=== PATIENT | female | born 1950 | race Caucasian/White ===

== ENCOUNTER 2018-11-18 00:27 | Outpatient (CLI) | payer MEDICARE, MEDICAID, SELFPAY ==
--- NOTE | 2018-11-18 11:58 | DI.MAMMO_ITS ---
SYMPTOMS/DIAGNOSIS: SCREENING, Z12.39 MAMMOGRAM: Mammograms were interpreted according to the usual protocol including computer analysis with CAD system, tomosynthesis and C view imaging. The breasts are of moderate density with fairly symmetrical distribution of fibroglandular tissue. No dominant mass or clumped microcalcification is identified in either breast. Current examination is compared with previous examinations including April 2017 and there has been no gross interval change in appearance in comparison with the previous studies. CONCLUSION: No specific evidence of malignancy at this time. Routine screening examinations are suggested at yearly intervals in this age group according to the ACS/ACR guidelines. Category 1, breast density category B. MQSA ASSESSMENT OF FINDINGS: Negative. Category 1. Patient will receive a letter notifying them of these results. BI-RADS category B. There are scattered areas of fibroglandular density.
== END 2018-11-18 00:47 ==
PROVIDERS: PCP Family Medicine; Visit Provider Family Medicine
DX: Z12.31 Encounter for screening mammogram for malignant neoplasm of breast (principal)
CPT/HCPCS: 77063; 77067

== ENCOUNTER 2019-03-09 13:27 | Outpatient (REF) | payer MEDICARE, SELFPAY ==
[2019-03-09 14:12] LABS: HCT 42.8 % (36.0-46.0); HGB 14.2 g/dL (12.0-15.5); Iron 96 ug/dL (50-175); Mean Corp. HGB Concentration 33.2 g/dL (32.0-36.0); Mean Corpuscular Hemoglobin 29.8 pg (27.0-33.0); Mean Corpuscular Volume 89.7 fL (80-95); Mean Platelet Volume 10.1 fL (8.0-11.0); Platelet Count 236 x1000/uL (130-400); RBC 4.77 m/cumm (4.00-5.20); RBC Distribution Width 14.4 % (11.7-14.6); Total Iron Binding Capacity 348 ug/dL (250-450); Transferrin Sat 28 % (15-50); White Blood Cell Count 4.34 k/cumm (4.4-10.8)
[2019-03-09 14:24] LABS: INR 1.1 (0.9-1.1)
[2019-03-09 14:43] LABS: ALT 34 U/L (12-78); AST 41 U/L (15-37); Albumin 3.2 g/dL (3.4-5.0); Alkaline Phosphatase 82 U/L (46-116); Anion Gap 9.2 mmol/L (3-11); BUN 9 mg/dL (7-18); Bilirubin, Total 0.9 mg/dL (0.2-1.0); CO2 25.8 mmol/L (21.0-32.0); CREATININE 0.75 mg/dL (0.55-1.02); Calcium 8.5 mg/dL (8.5-10.1); Chloride 109 mmol/L (98-107); Glucose 89 mg/dL (70-100); Potassium 4.3 mmol/L (3.5-5.1); Sodium 144 mmol/L (136-145); Total Protein 6.6 g/dL (6.4-8.2); Vitamin B12 526 pg/mL (193-986)
== END 2019-03-09 13:47 ==
LOC: NCHCN 13:27
PROVIDERS: PCP Family Medicine; Visit Provider Family Medicine
DX: K74.60 Unspecified cirrhosis of liver (principal); D50.9 Iron deficiency anemia, unspecified
CPT/HCPCS: 80053; 85027; 82607; 83540; 83550; 85610

== ENCOUNTER 2020-12-09 16:11 | Outpatient (REF) | payer OTHER, SELFPAY ==
[2020-12-09 15:05] LABS: Anion Gap 4.3 mmol/L (3-11); BUN 12 mg/dL (7-18); CO2 30.7 mmol/L (21.0-32.0); Calcium 9.1 mg/dL (8.5-10.1); Chloride 106 mmol/L (98-107); Estimated GFR 54.97 (mL/min/1.73m2); Glucose 101 mg/dL (74-106); Potassium 4.1 mmol/L (3.5-5.1); Sodium 141 mmol/L (136-145)
== END 2020-12-09 16:12 | disposition home or self-care (01) ==
LOC: NCHCN 16:11
PROVIDERS: PCP Family Medicine; Visit Provider Family Medicine
DX: I10 Essential (primary) hypertension (principal)
CPT/HCPCS: 80048

== ENCOUNTER 2021-03-21 14:04 | Outpatient (REF) | payer OTHER, SELFPAY ==
--- NOTE | 2021-03-21 12:30 | PAPFT_PTH ---
PATIENT: Telma Richter LOC: [facility] U#:[id number] AGE/SX: 70/F ROOM: RE03/21/[address]: Justino Lucia : 1950 BED: DIS: 03/21/2021 SPEC #: [id number] RECD: 03/22/21 13:09 STATUS: MARV REQ #: [id number] MALIKA: 03/21/21 12:[address]: Justino Lucia DEPT: [facility] Cytology RECD BY: Carolyn Akers Tissues: 1 - CX/ENDOCX FOR PAP SMEARS Procedures: PAP THIN PREP/UVM Screening HPV DNA PROBE Comments: [id number] ([facility] - FAXED 04/03/21)
== END 2021-03-21 14:05 | disposition home or self-care (01) ==
LOC: LBN 14:04
PROVIDERS: PCP Family Medicine; Visit Provider Family Medicine
DX: Z12.4 Encounter for screening for malignant neoplasm of cervix (principal); Z11.51 Encounter for screening for human papillomavirus (HPV)
CPT/HCPCS: 88142; 87624

== ENCOUNTER 2021-04-06 01:33 | Outpatient (CLI) | payer OTHER, SELFPAY ==
--- NOTE | 2021-04-06 | DI.US_ITS ---
Exam(s) US PELVIS TRANSVAGINAL EXAM: US PELVIS TRANSVAGINAL CLINICAL HISTORY: ABNL UTERINE BLEEDING,N93.9 TECHNIQUE: Ultrasound of the pelvis was performed both transabdominal and transvaginal. COMPARISON: None FINDINGS: UTERUS: Anteverted Measures 8.3 cm length x 3.6 cm AP x 4.6 cm wide. There are no uterine fibroids. Endometrial thickness measures 12.6 mm. This is thick for this age group There is no fluid in the endometrial canal. CERVIX: There are no obvious nabothian cysts. RIGHT OVARY: Measures 1.4 x 1.5 x 1.3 cm No significant cysts nor masses evident in the right ovary. LEFT OVARY: Measures 2.3 x 1.7 x 1.6 cm No significant cysts nor masses evident in the left ovary. CUL-DE-SAC: No free fluid evident. Incidentally noted is a cyst in the right kidney lateral cortex measuring 4.1 x 3.9 x 3.3 cm no signi ficant focal findings in left kidney. No calculi nor hydronephrosis.. IMPRESSION: 1. There are no uterine fibroids but the endometrium is thickened for this age group, measuring 12-13 millimeters although this appears relatively homogeneous, close follow-up of this abnormally thicken ed endometrial lining is recommended. There is no fluid in the endometrial canal. 2. No abnormal ovarian findings. 3. Incidentally noted is a benign 4 cm cyst in the right kidney. DATA REPOSITORY:
== END 2021-04-06 01:53 ==
PROVIDERS: PCP Family Medicine; Visit Provider Family Medicine
DX: N93.9 Abnormal uterine and vaginal bleeding, unspecified (principal); N28.1 Cyst of kidney, acquired; R93.89 Abnormal findings on diagnostic imaging of other specified body structures
CPT/HCPCS: 76830; 76856

== ENCOUNTER 2021-04-10 17:54 | Outpatient (REF) | payer OTHER, SELFPAY ==
[2021-04-12 14:27] LABS: COVID-19 RT-PCR UVMMC Result Negative (Negative)
== END 2021-04-10 17:55 | disposition home or self-care (01) ==
LOC: LBN 17:54
PROVIDERS: PCP Family Medicine; Visit Provider Nurse Practitioner Family
DX: Z20.822 Contact with and (suspected) exposure to COVID-19 (principal); J06.9 Acute upper respiratory infection, unspecified
CPT/HCPCS: U0003

== ENCOUNTER 2021-10-02 19:47 | Outpatient (REF) | payer OTHER, SELFPAY ==
[2021-10-02 20:24] LABS: HCT 39.8 % (36.0-46.0); MCH 26.7 pg (27.0-33.0); MCHC 30.2 % (32.0-36.0); MCV 88.6 fL (80-95); MPV 10.3 fL (8.0-11.0); Platelet Count 254 10^3/uL (130-400); RBC 4.49 10^6/uL (3.93-5.22); RDW 15.9 % (11.7-14.6); WBC 5.18 10^3/uL (4.4-10.8)
[2021-10-02 20:33] LABS: ALT 26 U/L (14-59); AST 24 U/L (15-37); Albumin 3.4 g/dL (3.4-5.0); Alkaline Phosphatase 74 U/L (46-116); Anion Gap 9.2 mmol/L (3-11); BUN 12 mg/dL (7-18); Bilirubin, Total 0.8 mg/dL (0.2-1.0); CO2 28.8 mmol/L (21.0-32.0); CREATININE 0.8 mg/dL (0.55-1.02); Calcium 8.8 mg/dL (8.5-10.1); Chloride 106 mmol/L (98-107); Glucose 92 mg/dL (74-106); Potassium 3.9 mmol/L (3.5-5.1); Sodium 144 mmol/L (136-145); Total Protein 6.8 g/dL (6.4-8.2)
== END 2021-10-02 19:48 | disposition home or self-care (01) ==
LOC: NCHCN 19:47
PROVIDERS: PCP Family Medicine; Visit Provider Family Medicine
DX: R73.01 Impaired fasting glucose (principal); K74.60 Unspecified cirrhosis of liver
CPT/HCPCS: 80053; 85027; 83036

== ENCOUNTER 2021-10-26 00:44 | Outpatient (CLI) | payer OTHER, SELFPAY ==
--- NOTE | 2021-10-26 10:45 | DI.CTLCSR_ITS ---
Exam(s) CT CHEST LUNG CANCER SCREEN EXAM: CT CHEST LUNG CANCER SCREEN CLINICAL HISTORY: H/O CIGARETTE SMOKER, Z87.891,SCREENING FOR LUNG CA. TECHNIQUE: Imaging Protocol: Low Dose Technique CONTRAST MATERIAL: None COMPARISON: No exams were available for comparison FINDINGS: CHEST: LUNGS: There are no ominous pulmonary nodules. There are no confluent infiltrates. Mild subpleural i ncreased markings are noted in the lateral basal segment of the right lower lobe. There are no pleur al effusions MEDIASTINUM: There is no obvious hilar nor mediastinal adenopathy. CARDIAC: Heart size is normal. There is no pericardial effusion.Caliber of the thoracic aorta is wit hin normal limits. OTHER: OSSEOUS: No significant osseous lesions.. IMPRESSION: 1. No concerning pulmonary nodules. 2. No pleural effusions nor obvious intrathoracic adenopathy. 3. Lung RADS Cat 1 - Negative: No nodules and definitely benign nodules Lung-RADS 1.0 CATEGORIES: Category 0 - Prior chest CT exam(s) being located for comparison. Category 1 - Annual screening in 12 months. No nodules or definitely benign nodules. Category 2 - Annual screening in 12 months. Benign appearance. Nodules with low likelihood of becomin g active cancer. Category 3 - 6-month follow-up. Probably benign. Short-term follow-up suggested. Nodules with low lik elihood of becoming active cancer. Category 4A - 3-month follow-up and CT/PET if >8 mm in size. Suspicious finding. Findings which requi re additional testing. Category 4B - Findings which require additional testing and tissue sampling. Category 4X - Category 3 or 4 nodules with additional features or imaging findings that increases the suspicion of malignancy. Modifier S- Potentially clinically significant findings (non lung cancer) RADIATION DOSE DELIVERED: 85.79mGy.cm Total DLP 2.21mGy CTDIvol DATA REPOSITORY: All CT scans at this facility are submitted to the National Radiology Data Registry (NRDR) Dose Index Registry (DIR) with the [employer] (ACR). RADIATION OPTIMIZATION: All CT scans at this facility use at least one of these dose optimization te chniques: automated exposure control; mA and/or kV adjustment per patient size (includes targeted exa ms where dose is matched to clinical indication); or iterative reconstruction.
== END 2021-10-26 01:04 ==
PROVIDERS: PCP Family Medicine; Visit Provider Family Medicine
DX: Z87.891 Personal history of nicotine dependence (principal); Z12.2 Encounter for screening for malignant neoplasm of respiratory organs
CPT/HCPCS: 71271

== ENCOUNTER 2021-10-31 21:12 | Outpatient (CLI) | payer OTHER, SELFPAY ==
--- NOTE | 2021-10-31 | DI.RAD_ITS ---
Exam(s) XR HIP LT COMPLETE AP PELVIS EXAM: XR HIP LT COMPLETE AP PELVIS CLINICAL HISTORY: LT HIP PAIN, SEVERE, NO TRAUMA, M25.552. TECHNIQUE: 2D digital imaging was performed of the left hip. Four views were obtained. AP pelvis a nd lateral left hip views were obtained. COMPARISON: No exams were available for comparison FINDINGS: BONES: No acute fracture is present. No bony destructive lesion is seen. JOINTS: No dislocation present. Degenerative changes of the hips are seen bilaterally, left greater t campbell right. There is joint space narrowing and acetabular spurring. Degenerative changes are also se en in the lower lumbar spine. SOFT TISSUE: Normal. IMPRESSION: Osteoarthritis of the left hip. Delete DATA REPOSITORY: RADIATION DOSE DELIVERED:
== END 2021-10-31 21:32 ==
PROVIDERS: PCP Family Medicine; Visit Provider Family Medicine
DX: M25.552 Pain in left hip (principal); M16.12 Unilateral primary osteoarthritis, left hip
CPT/HCPCS: 73502

== ENCOUNTER → 2021-11-13 12:53 | Outpatient (BNVA) | payer OTHER, SELFPAY | PROVIDERS: PCP Family Medicine; Referring Provider Family Medicine; Visit Provider Student in an Organized Health Care Education/Training Program | DX: M16.12 Unilateral primary osteoarthritis, left hip (principal) | CPT/HCPCS: 99203 ==

== ENCOUNTER 2022-11-15 00:53 | Outpatient (CLI) | payer OTHER, SELFPAY ==
--- NOTE | 2022-11-15 09:00 | ETT_ITS ---
APPROVED REPORT Exam: Exercise Treadmill Patient Location: Out-Patient Room/Bed: Stress Nurse: Jacey Dickerson RN Ordering Provider:MYKE GORDILLO, Contact Number: [phone] BMI: 56.69 Baseline Rhythm: Sinus Rhythm Indications: Dyspnea on exertion, palpitaions Medical History Medical History: DJD L hip, HTN, liver cirrhosis, BMI > 31, heart murmur Cardiac Medications: lisinopril, gabapentin, furosemide, atorvastatin, albuterol, metoprolol succinat e, ozempic, Allergies: NKDA Cardiac Risk Factors: HTN, HLD, obesity, diabetes, former smorker, asthma, Previous Cardiac Procedures: Cardiac cath 2015 w/ no stents Pretest Chest Pain Characteristics: None Exercise History: Sedentary Physical Disabilities: L hip DJD Lung Sounds: Clear to auscultation Heart Sounds: Regular, murmur Stress Test Details Test: Exercise stress testing was performed using a Flavio protocol. Rest Stress HR Resting HR Supine: 84 bpm Max Heart Rate (APMHR): 149 bpm Resting HR Standin bpm Target HR (85% APMHR): 127 bpm Max HR Achieved: 152 bpm % of APMHR: 102 Recovery HR: 100 bpm HR response to stress: Accelerated HR response to stress Comment: Metoprolol succinate was held x 48 hours BP Resting BP Supine: 158/72 mmHg Resting BP Standin/78 mmHg Max BP: 180/80 mmHg Recovery BP: 150/82 mmHg BP response to stress: Normal blood pressure response to stress. ECG Resting ECG: Sinus Rhythm Ectopy: None Stress ECG: Sinus Tachycardia ST Change: No significant ST segment changes noted Arrhythmia: None Recovery ECG: Sinus Tachycardia Recovery ST Change: No significant ST segment changes noted Recovery Arrhythmia: Rare PAC Clinical Reason for Termination: Fatigue, Dyspnea Stress Symptoms: General Fatigue, Dyspnea Exercise duration: 1 min40 sec Highest Stage Reached: Stage 1: 1.7 mph at 10% grade. Exercise capacity: 3.86 METs Angina Score: None Arriaga Treadmill Score: 1.7 Rate Pressure Product: 09731 Stress ECG Conclusion 1. Resting electrocardiogram showed poor R wave progression 2. Patient exercised on the Flavio protocol and completed a workload of 3.86 METS, walking for 1 minut e and 40 seconds. 3. Accelerated heart rate response to exercise. The patient achieved greater than 100% of predicted heart rate for age. Normal blood pressure response to exercise 4. No electrocardiographic evidence of myocardial ischemia 5. There were no significant dysrhythmias Arriaga Treadmill Score is 1.7 which is Moderate risk. Stress Test Summary STAGE Time (mins) Speed (mph) Grade (%) HR BP SpO2 SYMPTOMS METS Supine 84 158/72 96 Standing 95 144/78 96 1 3 1.7 10 150 96 mod-severe SOB 4.5 1 min recovery 130 178/84 96 mod-severe SOB 3 min recovery 100 180/80 97 mild-moderate SOB 6 min recovery 100 150/82 96 SOB resolved
== END 2022-11-15 01:13 ==
PROVIDERS: PCP Family Medicine; Visit Provider Family Medicine
DX: R06.09 Other forms of dyspnea (principal); R00.2 Palpitations
CPT/HCPCS: 93016; 93018; 93017

== ENCOUNTER → 2023-10-01 00:38 | Outpatient (CLI) | payer OTHER, SELFPAY ==
--- OUTSIDE RECORDS SUMMARY | 2023-09-20 13:37 | XMS_ITS | Continuity of Care Document ---
Author Name Unknown Organization [facility] Address [address] [place] [id number] Care Team Providers Care Assisted Living Home Director Name Role Phone MYKE GORDILLO Primary Care Physician Encounter [facility] FIN NBR [id number] Date(s): 06/08/22 - 06/08/[address] [address]- [place] Discharge Disposition: Home or Self Care Attending Physician: MYKE GORDILLO Admitting Physician: MYKE GORDILLO Results Radiology Reports * Exam Date Time Procedure Performing Provider Status 06/08/22 11:41 AM MG Mammo Screening Bilateral Shante Jean; Kirsten (Verified) Notes: (MG Mammo Screening Bilateral) Reason For Exam: screening MG Mammo Screening Bilateral EXAM DESCRIPTION: MG Mammo Screening Bilateral 06/08/2022 INDICATION: SCREENING COMPARISON: 05/01/2017 and 04/06/2016 BREAST DENSITY: The breasts are almost entirely fatty. FINDINGS: MLO and CC views were performed with digital breast tomosynthesis. Images were reviewed using computer aided detection. No asymmetry, architectural distortion or suspicious grouping of calcifications to suggest malignancy in either breast. ASSESSMENT: No mammographic evidence of malignancy. Negative. BI-RADS category 1. RECOMMENDATION: Screening mammography in 1 year JOB #: [id number] Final Signed by: Leo Galan MD Signed (Electronic Signature): 06/08/2022 11:54 am MG Breast - bilateral Screening * Leo Galan MD: VERIFY, VERIFY Event Display: Report EXAM DESCRIPTION: MG Mammo Screening Bilateral 06/08/2022 INDICATION: SCREENING COMPARISON: 05/01/2017 and 04/06/2016 BREAST DENSITY: The breasts are almost entirely fatty. FINDINGS: MLO and CC views were performed with digital breast tomosynthesis. Images were reviewed using computer aided detection. No asymmetry, architectural distortion or suspicious grouping of calcifications to suggest malignancy in either breast. ASSESSMENT: No mammographic evidence of malignancy. Negative. BI-RADS category 1. RECOMMENDATION: Screening mammography in 1 year JOB #: [id number] Final Signed by: Leo Galan MD Signed (Electronic Signature): 06/08/2022 11:54 am Patient Care team information Personnel Name: MYKE GORDILLO M Address: Address: [address] [place] [id number] [place] [address]
--- OUTSIDE RECORDS SUMMARY | 2023-09-20 13:37 | XMS_ITS | Continuity of Care Document ---
Author Name Unknown Organization [facility] Address [address] [place] [id number] Care Team Providers Care Forestry Support Specialist Name Role Phone MYKE GORDILLO MD Primary Care Physician Encounter [facility] NBR [id number] Date(s): 06/06/22 - 12/12/[address] [address]- Encounter Diagnosis Unilateral primary osteoarthritis, left hip(Final) - Discharge Disposition: Home-No Follow Up Attending Physician: Marifer Carey Referring Physician: MYKE GORDILLO Allergies, Adverse Reactions, Alerts No Known Allergies Assessment and Plan Future Appointments Appointment Date:01/15/2023 09:15:00 AM Scheduled Provider:Marifer Carey PT Location:[facility]-Rehab Appointment Type:Progress Note (LTTL) Medications atorvastatin 0 Refill(s) Start Date: 09/18/22 Status: Ordered gabapentin 0 Refill(s) Start Date: 09/18/22 Status: Ordered Lasix 0 Refill(s) Start Date: 09/18/22 Status: Ordered lisinopril 5 mg oral tablet fu, 0 Refill(s) Start Date: 09/18/22 Status: Ordered magnesium oxide 500 mg oral capsule 500 mg = 1 cap, Oral, Daily, # 5 cap, 0 Refill(s) Start Date: 09/18/22 Stop Date: 09/23/22 Status: Ordered metoprolol succinate 25 mg oral capsule, extended release 0 Refill(s) Start Date: 09/18/22 Status: Ordered Metoprolol Tartrate 25 mg oral tablet 25 mg = 1 tab, Oral, BID, # 60 tab, 0 Refill(s) Start Date: 09/18/22 Status: Ordered potassium chloride 20 mEq oral tablet, extended release 20 mEq = 1 tab, Oral, Daily, # 5 EA, 0 Refill(s) Start Date: 09/18/22 Status: Ordered PriLOSEC 0 Refill(s) Start Date: 09/18/22 Status: Ordered spironolactone 0 Refill(s) Start Date: 09/18/22 Status: Ordered Problem List Condition Confirmation Course Effective Dates Status Health St atus Informant 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 Sex Patient Care team information Care Team Personnel Name: MYKE GORDILLO MD Position: No Access Member Role: Primary Care Physician Address: Address: [address] [place] [address] Care Team Related Persons Name: JENNY DE LEON
--- OUTSIDE RECORDS SUMMARY | 2023-09-20 13:37 | XMS_ITS | Continuity of Care Document ---
Author Name Unknown Organization [facility] Address [address] [place] [id number] Care Team Providers Care Parimutuel Ticket Checker Name Role Phone MYKE GORDILLO MD Primary Care Physician Encounter LTTL_SD FIN NBR [id number] Date(s): 09/18/22 - 09/18/[address] [id number]- Encounter Diagnosis Palpitation(Discharge Diagnosis) - 09/18/22 Angina pectoris without myocardial infarction(Discharge Diagnosis) - 09/18/22 Discharge Disposition: Home or Self Care Attending Physician: Alexander Olivera MD Admitting Physician: Alexander Olivera MD Allergies, Adverse Reactions, Alerts No Known Allergies Functional Status 09/18/22 Other exposure to Infectious Disease Non e Medications atorvastatin 0 Refill(s) Start Date: 09/18/22 [...] 0 Refill(s) Start Date: 09/18/22 Status: Ordered Mental Status 09/18/22 Eye Opening Response Benson Spontaneous ly Best Verbal Response Benson Oriented Best Motor Response [place] Obeys comman ds [place] Coma Score 15 Problem List Condition Confirmation Course Effective Dates Status Health St atus Informant Angina pectoris without myocardial infarction Confirmed Active Palpitation Confirmed Active Results Laboratory List Name Date Troponin-I 09/18/22 SARS-CoV-2 (COVID-19)/Flu/RSV (GeneXpert ) 09/18/22 Automated Diff 09/18/22 BNP 09/18/22 CBC w/ Diff 09/18/22 Comprehensive Metabolic Panel (CMP) 09/18 Magnesium Level 09/18/22 PT/ INR 09/18/22 PTT 09/18/22 TSH w/ Rflx to Free T4 09/18/22 Troponin-I 09/18/22 Most recent to oldest [Reference Range]: 1 2 WBC [4.8-10.8 K/mcL] 4.6 K/mcL *LOW* (09/18/22 9:35 AM) RBC [4.20-6.10 Million/mcL] 4.65 Million /mcL (09/18/22 9:35 AM) Neutro Auto [42.2-75.2 %] 60.1 % (09/18/22 9:35 AM) Lymph Auto [20.5-51.1 %] 26.3 % (09/18/22 9:35 AM) Platte Auto [1.7-9.3 %] 10.1 % *HI* (09/18/22 9:35 AM) Basophil Auto [0.0-0.8 %] 0.7 % (09/18/22 9:35 AM) Prothrombin Time [9.1-10.6 seconds] 11.0 seconds *HI* (09/18/22 9:35 AM) INR [0.9-1.1] 1.1 (09/18/22 9:35 AM) BUN [8-26 mg/dL] 10 mg/dL (09/18/22 9:35 AM) Glucose Level [74-106 mg/dL] 106 mg/dL (09/18/22 9:35 AM) Potassium Level [3.5-5.1 mmol/L] 3.3 mmo l/L *LOW* (09/18/22 9:35 AM) Baso Absolute [0.0-0.2 K/mcL] 0.0 K/mcL (09/18/22 9:35 AM) MCV [80.0-99.0 fL] 91.0 fL (09/18/22 9:35 AM) AST [15-41 IntlUnit/L] 32 IntlUnit/L (09/18/22 9:35 AM) ALT [14-54 IntlUnit/L] 18 IntlUnit/L (09/18/22 9:35 AM) MCHC [32.0-36.0 g/dL] 33.8 g/dL (09/18/22 9:35 AM) Osmolality [275-295 mOsm/kg] 273 mOsm/kg *LOW* (09/18/22 9:35 AM) Troponin-I [<=0.05 ng/mL] 0.03 ng/mL (09/18/22 12:55 PM) 0.02 ng/mL (09/18/22 9:35 AM) Sodium Level [134-143 mmol/L] 137 mmol/L (09/18/22 9:35 AM) Lymph Absolute [1.2-3.4 K/mcL] 1.2 K/mcL (09/18/22 9:35 AM) Hct [37.0-52.0 %] 42.3 % (09/18/22 9:35 AM) Partial Thromboplastin Time [21.3-28.4 seconds] 25.8 seconds (09/18/22 9:35 AM) Calcium Level [8.9-10.3 mg/dL] 8.8 mg/dL *LOW* (09/18/22 9:35 AM) Platte Absolute [0.1-0.6 K/mcL] 0.5 K/mcL (09/18/22 9:35 AM) Albumin Level [3.5-5.0 g/dL] 3.5 g/dL (09/18/22 9:35 AM) Protein Total [6.5-8.1 g/dL] 6.8 g/dL (09/18/22 9:35 AM) MCH [27.0-31.0 pg] 30.8 pg (09/18/22 9:35 AM) Magnesium Level [1.8-2.5 mg/dL] 1.7 mg/d L *LOW* (09/18/22 9:35 AM) Neutro Absolute [1.4-6.5 K/mcL] 2.8 K/mc L (09/18/22 9:35 AM) Bilirubin Total [0.2-1.2 mg/dL] 1.1 mg/d L (09/18/22 9:35 AM) Hgb [12.0-18.0 g/dL] 14.3 g/dL (09/18/22 9:35 AM) Alk Phos [38-130 IntlUnit/L] 65 IntlUnit /L (09/18/22 9:35 AM) MPV [7.4-10.4 fL] 9.9 fL (09/18/22 9:35 AM) Platelets [130-400 K/mcL] 225 K/mcL (09/18/22 9:35 AM) CO2 [22-32 mmol/L] 25 mmol/L (09/18/22 9:35 AM) Eos Absolute [0.0-0.2 K/mcL] 0.1 K/mcL (09/18/22 9:35 AM) TSH [0.45-5.33 mIntlUnit/mL] 1.69 mIntlU nit/mL (09/18/22 9:35 AM) eGFR Non-AA 75 *NA* (09/18/22 9:35 AM) eGFR AA 75 *NA* (09/18/22 9:35 AM) BNP [<=100 pg/mL] 54 pg/mL (09/18/22 9:35 AM) Chloride Level [98-111 mmol/L] 102 mmol/ L (09/18/22 9:35 AM) RDW-CV [11.5-14.5 %] 13.8 % (09/18/22 9:35 AM) A/G Ratio 1.1 *NA* (09/18/22 9:35 AM) BUN/Creat Ratio [8.0-20.0] 12.0 (09/18/22 9:35 AM) Globulin 3.3 *NA* (09/18/22 9:35 AM) Imm Gran Absolute 0.01 *NA* (09/18/22 9:35 AM) Imm Gran Auto [0.0-0.5 %] 0.2 % (09/18/22 9:35 AM) Creatinine Level [0.44-1.00 mg/dL] 0.83 mg/dL (09/18/22 9:35 AM) Employed in healthcare? No *NA* (09/18/22 10:40 AM) Symptomatic as defined by CDC? Unknown *NA* (09/18/22 10:40 AM) Hospitalized due to COVID-19? No *NA* (09/18/22 10:40 AM) In ICU? No *NA* (09/18/22 10:40 AM) Group care resident? No *NA* (09/18/22 10:40 AM) status? Unknown *NA* (09/18/22 10:40 AM) SARS-CoV-2(Covid19)PCR(GXper t COVFLURSV) [Negative] Negative (09/18/22 10:40 AM) Flu A (GXpert COVFLURSV) [Negative] Nega tive (09/18/22 10:40 AM) RSV ([facility]Xpert COVFLURSV) [Negative] Negati ve (09/18/22 10:40 AM) Flu B (GXpert COVFLURSV) [Negative] Nega tive (09/18/22 10:40 AM) Anion Gap [3.0-12.0] 10.0 (09/18/22 9:35 AM) Eos, Auto [0.00-3.00 %] 2.60 % (09/18/22 9:35 AM) Radiology Reports * Exam Date Time Procedure Performing Provider Status 09/18/22 10:08 AM XR Chest 2 Views Chantal Busby; Auth (Verified) Notes: (XR Chest 2 Views) Reason For Exam: sob XR Chest 2 Views EXAM DESCRIPTION: XR Chest 2 Views 09/18/2022 INDICATION: SOB COMPARISON: 10/25/2017 IMPRESSION: No focal consolidation. Mild bilateral peripheral interstitial changes of uncertain chronicity which may reflect mild interstitial lung disease/fibrosis or possible mild interstitial pulmonary edema. Normal cardiomediastinal contour. Normal pleural margins with no pleural effusion or pneumothorax. Spondylotic changes of the dorsal spine. JOB #: [id number] Final Signed by: Leo Galan MD Signed (Electronic Signature): 09/18/2022 10:23 am Vital Signs Most recent to oldest [Reference Range]: 1 2 3 Temperature Temporal Artery [36-38 Deg C] 36.5 Deg C (09/18/22 9:00 AM) Peripheral Pulse Rate [60-100 bpm] 119 bpm *HI* (09/18/22 10:00 AM) 115 bpm *HI* (09/18/22 9:00 AM) Heart Rate Monitored [60-100 bpm] 80 bpm (09/18/22 2:15 PM) 81 bpm (09/18/22 12:15 PM) 81 bpm (09/18/22 11:30 AM) Respiratory Rate [12-24 br/min] 18 br/min (09/18/22 2:15 PM) 16 br/min (09/18/22 11:30 AM) 24 br/min (09/18/22 11:00 AM) Blood Pressure [90-140/60-90 mmHg] 103/79mmHg (09/18/22 2:15 PM) 99/45mmHg (09/18/22 1:30 PM) 99/45mmHg (09/18/22 1:15 PM) Mean Arterial Pressure Cuff 88 mmHg (09/18/22 2:15 PM) 54 mmHg (09/18/22 1:30 PM) 54 mmHg (09/18/22 1:15 PM) Weight Dosing 141.00 kg (09/18/22 9:25 AM) Weight Estimated 141.00 kg (09/18/22 9:00 AM) Height/Length Dosing 157.000 cm (09/18/22 9:25 AM) Height/Length Estimated 157.000 cm (09/18/22 9:00 AM) Social History Social History Type Response Tobacco Never tobacco user T obacco Use:. Sex Hospital Discharge Instructions Patient Education 09/18/2022 12:56:38 Palpitations, Jeel-il-Ytmn Palpitations Palpitations are feelings that your heartbeat is not normal. Your heartbeat may feel like it is: ??? Uneven. ??? Faster than normal. ??? Fluttering. ??? Skipping a beat. This is usually not a serious problem. In some cases, you may need tests to rule out any serious problems. Follow these instructions at home: Pay attention to any changes in your condition. Take these actions to help manage your symptoms: Eating and drinking ??? Avoid: ??? Coffee, tea, soft drinks, and energy drinks. ??? Chocolate. ??? Alcohol. ??? Diet pills. Lifestyle ??? Try to lower your stress. These things can help you relax: ??? Yoga. ??? Deep breathing and meditation. ??? Exercise. ??? Using words and images to create positive thoughts (guided imagery). ??? Using your mind to control things in your body (biofeedback). ??? Do not use drugs. ??? Get plenty of rest and sleep. Keep a regular bed time. General instructions ??? Take bvko-dos-twwwsmh and prescription medicines only as told by your doctor. ??? Do not use any products that contain nicotine or tobacco, such as cigarettes and e-cigarettes. If you need help quitting, ask your doctor. ??? Keep all follow-up visits as told by your doctor. This is important. You may need more tests ifpalpitations do not go away or get worse. Contact a doctor if: ??? Your symptoms last more than 24 hours. ??? Your symptoms occur more often. Get help right away if you: ??? Have chest pain. ??? Feel short of breath. ??? Have a very bad headache. ??? Feel dizzy. ??? Pass out (faint). Summary ??? Palpitations are feelings that your heartbeat is uneven or faster than normal. It may feel likeyour heart is fluttering or skipping a beat. ??? Avoid food and drinks that may cause palpitations. These include caffeine, chocolate, and alcohol. ??? Try to lower your stress. Do not smoke or use drugs. ??? Get help right away if you faint or have chest pain, shortness of breath, a severe headache, ordizziness. This information is not intended to replace advice given to you by your health care provider. Make sure you discuss any questions you have with your health care provider. Document Revised: 12/15/2021 Document Reviewed: 10/01/2018 [facility] Patient Education ?? 2021 [employer]. 09/18/2022 12:56:24 Angina, Oqur-hk-Atfc Angina Angina is discomfort or pain in the chest, neck, arm, jaw, or back. The discomfort is caused by a lack of blood in the middle layer of the heart wall. The middle layer of the heart wall is called themyocardium. What are the causes? This condition is caused by a buildup of fat and cholesterol, or plaque, in your arteries. This buildup narrows the arteries and makes it hard for blood to flow. What increases the risk? Main risks ??? High levels of cholesterol in your blood. ??? High blood pressure. ??? Diabetes. ??? Family history of heart disease. ??? Not exercising or moving enough. ??? Depression. ??? Having had radiation treatment on the left side of your chest. Other risks ??? Tobacco use. ??? Too much body weight (obesity). ??? A diet that is high in unhealthy fats (saturated fats). ??? Stress. ??? Using drugs, such as cocaine. Risks for women ??? Being older than 55 years. ??? Being in menopause. This is the time when a woman no longer has a menstrual period. What are the signs or symptoms? Symptoms in all people ??? Chest pain, which may: ??? Feel like a crushing or squeezing in the chest. ??? Feel like a tightness, pressure, fullness, or heaviness in the chest. ??? Last for more than a few minutes at a time. ??? Stop and come back (recur) after a few minutes. ??? Pain in the neck, arm, jaw, or back. ??? Heartburn or upset stomach (indigestion) for no reason. ??? Being short of breath. ??? Feeling like you may vomit (nauseous). ??? Sudden cold sweats. Symptoms in women and people with diabetes ??? Tiredness. ??? Worry and anxiety. ??? Weakness. ??? Dizziness or fainting. How is this treated? This condition may be treated with: ??? Medicines. These can be given to prevent blood clots, stop a heart attack, lower blood pressure, or treat other risk factors. ??? A procedure to widen a narrowed or blocked artery in the heart. ??? Surgery to allow blood to go around a blocked artery. Follow these instructions at home: Medicines ??? Take xlwr-ajj-cyoaslz and prescription medicines only as told by your doctor. ??? Do not take these medicines unless your doctor says that you can: ??? NSAIDs. These include: ??? Ibuprofen. ??? Naproxen. ??? Vitamin supplements that have vitamin A, vitamin E, or both. ??? Hormone therapy that contains estrogen with or without progestin. Eating and drinking ??? Eat a heart-healthy diet that includes: ??? Lots of fresh fruits and vegetables. ??? Whole grains. ??? Low-fat (lean) protein. ??? Low-fat dairy products. ??? Follow instructions from your doctor about what you cannot eat or drink. Activity ??? Follow an exercise program that your doctor tells you. ??? Talk with your doctor about joining a program to make your heart strong again (cardiac rehab). ??? When you feel tired, take a break. Plan breaks if you know you are going to feel tired. Lifestyle ??? Do not smoke or use any products that contain nicotine or tobacco. If you need help quitting, ask your doctor. ??? If your doctor says you can drink alcohol: ??? Limit how much you have to: ??? 0???1 drink a day for women who are not . ??? 0???2 drinks a day for men. ??? Know how much alcohol is in your drink. In the [place] one drink equals one 12 oz bottle of beer (355 mL), one 5 oz glass of wine (148 mL), or one 1?? oz glass of hard liquor (44 mL). General instructions ??? Stay at a healthy weight. If told to lose weight, work with your doctor to do lose weight safely. ??? Learn to manage stress. If you need help, ask your doctor. ??? Keep your vaccines up to date. Get a flu shot every year. ??? Talk with your doctor if you feel sad. Take a screening test to see if you are at risk for depression. ??? Work with your doctor to manage any other health problems that you have. These may include diabetes or high blood pressure. ??? Keep all follow-up visits. Get help right away if: ??? You have pain in your chest, neck, arm, jaw, or back, and the pain: ??? Lasts more than a few minutes. ??? Comes back. ??? Does not get better after you take medicine under your tongue (sublingual nitroglycerin). ??? Keeps getting worse. ??? Comes more often. ??? You have any of these problems: ??? Sweating a lot. ??? Heartburn or upset stomach. ??? Shortness of breath. ??? Trouble breathing. ??? Feeling like you may vomit. ??? Vomiting. ??? Feeling more tired than normal. ??? Feeling nervous or worrying more than normal. ??? Weakness. ??? You are dizzy or light-headed all of a sudden. ??? You faint. These symptoms may be an emergency. Get help right away. Call your local emergency services (911 int [place] ??? Do not wait to see if the symptoms will go away. ??? Do not drive yourself to the hospital. Summary ??? Angina is discomfort or pain in the chest, neck, arm, neck, or back. ??? Symptoms include chest pain, heartburn or upset stomach, and shortness of breath. ??? Women or people with diabetes may have other symptoms, such as feeling nervous, being worried, or being weak or tired. ??? Take all medicines only as told by your doctor. ??? You should eat a heart-healthy diet and follow an exercise program. This information is not intended to replace advice given to you by your health care provider. Make sure you discuss any questions you have with your health care provider. Document Revised: 02/10/2021 Document Reviewed: 02/10/2021 [facility] Patient Education ?? 2021 [employer]. Follow Up Care 09/18/2022 09:00:12 With:DUY GRACE, MYKE Olsen Address: [address] [place] [phone]- When:3 to 5 days Comments:call to schedule follow up appointment Discharge instructions * Event Display: Discharge Instructions EKG study * Event Display: Electrocardiogram EKG Physician Emergency department Note * Jessica Mitchell MANAGER WAREHOUSE: PERFORM Event Display: ED Note Physician Authored Date: [id number] SHERRON MOYA :1950 Age:72 years Sex:Female Visit Date:09/18/2022 Primary Care Physician: MYKE GORDILLO MD Basic Information Time Seen: Jessica Mitchell MANAGER WAREHOUSE / 09/18/2022 10:16 Chief Complaint Pt c/o SOB and palpiltations since 09/14. Has not taken her metoprolol since then. Denies CP. Physical Exam Vitals & Measurements T:??36.5?C ??(Temporal Artery)?? HR:??80??(Monitored)?? RR:??18?? BP:??103/79?? SpO2:??97%?? HT:??157.000??cm?? WT:??141.00??kg??(Estimated)?? O2 Therapy:??Room air?? Procedure No Qualifying Data Assessment/Plan 1.??Palpitation??R00.2 Resolved and now will replete electrolytes, Metroprolol resumed, PCP will follow up with outpatientlabs Ordered: magnesium oxide 500 mg oral capsule, 500 mg = 1 cap, Oral, Daily, # 5 cap, 0 Refill(s) Metoprolol Tartrate 25 mg oral tablet, 25 mg = 1 tab, Oral, BID, # 60 tab, 0 Refill(s) potassium chloride 20 mEq oral tablet, extended release, 20 mEq = 1 tab, Oral, Daily, # 5 EA, 0 Refill(s) ?? 2.??Angina pectoris without myocardial infarction??I20.9 resume metoprolol. Case was discussed with primary care provider who will arrange for outpatient cardiac stress testing.?? Troponin and delta troponin have remained negative patient's heart rate and blood pressure haveimproved after receiving Metroprolol and being monitored in the emergency department.?? Patient wasadvised to return sooner for new or worsening symptoms Ordered: Metoprolol Tartrate 25 mg oral tablet, 25 mg = 1 tab, Oral, BID, # 60 tab, 0 Refill(s) ?? Patient Education Palpitations, Rzrz-nh-Rgbw Angina, Fmjw-bz-Pcmh Follow Up With When Contact Information MYKE GORDILLO MD Within 3 to [address] [place] [id number]- Additional Instructions: call to schedule follow up appointment Medication Reconciliation New Prescription magnesium oxide (magnesium oxide 500 mg oral capsule)1 Capsules Oral (given by mouth) every day for5 Days. Refills: 0. ?? potassium chloride (potassium chloride 20 mEq oral tablet, extended release)1 tab Oral (given by mouth) every day. Refills: 0. ?? Changed metoprolol (metoprolol succinate 25 mg oral capsule, extended release) ?? metoprolol (Metoprolol Tartrate 25 mg oral tablet)1 tab Oral (given by mouth) 2 times a day. Refills: 0. ?? Unchanged atorvastatin ?? furosemide (Lasix) ?? gabapentin ?? lisinopril (lisinopril 5 mg oral tablet)fu. ?? omeprazole (PriLOSEC) ?? spironolactone Problem List/Past Medical History Ongoing Angina pectoris without myocardial infarction Palpitation Historical No qualifying data Medication Administration Given Sodium Chloride 0.9%, 1000 mL, IV Bolus furosemide, 40 mg, IV Push Lopressor, 5 mg, IV Push magnesium oxide, 400 mg, Oral Metoprolol Tartrate, 25 mg, Oral potassium chloride, 40 mEq, Oral Allergies No Known Allergies Social History Electronic Cigarette/Vaping Electronic Cigarette Use: Never. Tobacco Never tobacco user Tobacco Use:. Diagnostic Results XR Chest 2 Views 09/18/2022 10:25 EST XR Chest 2 Views ?? 09/18/22 10:23:05 EXAM DESCRIPTION: XR Chest 2 Views ?? 09/18/2022 ?? INDICATION: SOB ?? COMPARISON: 10/25/2017 ?? IMPRESSION: No focal consolidation. Mild bilateral peripheral interstitial changes of uncertain chronicity which may reflect mild interstitial lung disease/fibrosis or possible mild interstitial pulmonary edema. ?? Normal cardiomediastinal contour. ?? Normal pleural margins with no pleural effusion or pneumothorax. ?? Spondylotic changes of the dorsal spine. ? JOB #: [id number] Electronically Signed By: ?? Signed By: Leo Emig, MD Lab Results CBC and Differential?? LATEST RESULTS?? WBC?? 09/18/22 09:35?? 4.6 ??Low?? RBC?? 09/18/22 09:35?? 4.65?? Hgb?? 09/18/22 09:35?? 14.3?? Hct?? 09/18/22 09:35?? 42.3?? MCV?? 09/18/22 09:35?? 91.0?? MCH?? 09/18/22 09:35?? 30.8?? MCHC?? 09/18/22 09:35?? 33.8?? RDW-CV?? 09/18/22 09:35?? 13.8?? Platelets?? 09/18/22 09:35?? 225?? MPV?? 09/18/22 09:35?? 9.9?? Neutro Auto?? 09/18/22 09:35?? 60.1?? Lymph Auto?? 09/18/22 09:35?? 26.3?? Platte Auto?? 09/18/22 09:35?? 10.1 ??High?? Eos, Auto?? 09/18/22 09:35?? 2.60?? Basophil Auto?? 09/18/22 09:35?? 0.7?? Imm Gran Auto?? 09/18/22 09:35?? 0.2?? Neutro Absolute?? 09/18/22 09:35?? 2.8?? Lymph Absolute?? 09/18/22 09:35?? 1.2?? Platte Absolute?? 09/18/22 09:35?? 0.5?? Eos Absolute?? 09/18/22 09:35?? 0.1?? Baso Absolute?? 09/18/22 09:35?? 0.0?? Imm Gran Absolute?? 09/18/22 09:35?? 0.01? Coagulation?? LATEST RESULTS?? Prothrombin Time?? 09/18/22 09:35?? 11.0 ??High?? INR?? 09/18/22 09:35?? 1.1?? Partial Thromboplastin Time?? 09/18/22 09:35?? 25.8? Routine Chemistry?? LATEST RESULTS?? Sodium Level?? 09/18/22 09:35?? 137?? Potassium Level?? 09/18/22 09:35?? 3.3 ??Low?? Chloride Level?? 09/18/22 09:35?? 102?? CO2?? 09/18/22 09:35?? 25?? Alk Phos?? 09/18/22 09:35?? 65?? AST?? 09/18/22 09:35?? 32?? ALT?? 09/18/22 09:35?? 18?? BUN?? 09/18/22 09:35?? 10?? Glucose Level?? 09/18/22 09:35?? 106?? Creatinine Level?? 09/18/22 09:35?? 0.83?? BUN/Creat Ratio?? 09/18/22 09:35?? 12.0?? eGFR AA?? 09/18/22 09:35?? 75?? eGFR Non-AA?? 09/18/22 09:35?? 75?? Calcium Level?? 09/18/22 09:35?? 8.8 ??Low?? Protein Total?? 09/18/22 09:35?? 6.8?? Albumin Level?? 09/18/22 09:35?? 3.5?? Globulin?? 09/18/22 09:35?? 3.3?? A/G Ratio?? 09/18/22 09:35?? 1.1?? Bilirubin Total?? 09/18/22 09:35?? 1.1?? Anion Gap?? 09/18/22 09:35?? 10.0?? Magnesium Level?? 09/18/22 09:35?? 1.7 ??Low?? Osmolality?? 09/18/22 09:35?? 273 ??Low? Cardiac Isoenzymes?? LATEST RESULTS?? Troponin-I?? 09/18/22 12:55?? 0.03?? BNP?? 09/18/22 09:35?? 54? Thyroid Studies?? LATEST RESULTS?? TSH?? 01/17/23 09:35?? 1.69? Infectious Disease?? LATEST RESULTS?? Employed in healthcare??? 09/18/22 10:40?? No?? Symptomatic as defined by CDC??? 09/18/22 10:40?? Unknown?? Hospitalized due to COVID-19??? 09/18/22 10:40?? No?? In ICU??? 09/18/22 10:40?? No?? Group care resident??? 09/18/22 10:40?? No?? status??? 09/18/22 10:40?? Unknown?? SARS-CoV-2(Covid19)PCR(GXpert COVFLURSV)?? 09/18/22 10:40?? Negative?? Flu A (GXpert COVFLURSV)?? 09/18/22 10:40?? Negative?? Flu B (GXpert COVFLURSV)?? 09/18/22 10:40?? Negative?? RSV (GXpert COVFLURSV)?? 09/18/22 10:40?? Negative? Electronically Signed on 09/19/22 01:29 AM Jessica Mitchell MANAGER WAREHOUSE * Jessica Mitchell MANAGER WAREHOUSE: MODIFY Jessica Mitchell MANAGER WAREHOUSE: MODIFY Event Display: ED Note Physician Authored Date: [id number] SHERRON MOYA :1950 Age:72 years Sex:Female Visit Date:09/18/2022 Primary Care Physician: MYKE GORDILLO MD Basic Information Time Seen: Jessica Mitchell MANAGER WAREHOUSE / 09/18/2022 10:16 Chief Complaint Pt c/o SOB and palpiltations since 09/14. Has not taken her metoprolol since then. Denies CP. History Of Present Illness: Patient is a 72 year old female with PMHx of HTN, cirrhosis, pre-diabetes, cardiac cath (2016), andheart murmur who presents for SOB and palpitations that began 4 days ago (09/14/22). The symptoms have become progressively worse over the last few days so she called her primary care provider this morning who suggested she present to the ED. Her symptoms began while she was at rest but are worse with activity. Of note, the patient ran out of her metoprolol the day before her symptoms began (09/13/22). She admits to a similar episode??several??months ago but was no longer symptomatic when she sawher PCP. Cardiac echo was done at that time. She also admits chest pressure, headache, shakiness, and bilateral leg edema. Review of Systems: Constitutional: [No fevers, chills, sweats] Eye: [No recent visual problems] ENT: [No ear pain, nasal congestion, sore throat] Respiratory: [YES shortness of breath, cough] Cardiovascular: [YES chest pain, palpitations, no syncope] Gastrointestinal: [No nausea, vomiting, diarrhea] Musculoskeletal: [No back pain, neck pain, joint pain, muscle pain, decreased range of motion] Integumentary: [No rash, pruritus, abrasions] Neurologic: [Alert & oriented X 4] Physical Exam Vitals & Measurements T:??36.5?C ??(Temporal Artery)?? HR:??107??(Monitored)?? RR:??19?? BP:??149/52?? SpO2:??98%?? HT:??157.000??cm?? WT:??141.00??kg??(Estimated)?? O2 Therapy:??Room air?? General: Alert and oriented, well nourished, no acute distress. Eye: EOMI, normal conjunctiva. HENT: Normocephalic, normal hearing, moist oral mucosa, no scleral icterus. Lungs: Clear to auscultation, non-labored respiration. Heart: Tachycardia, holosystolic murmur. Abdomen: Soft, non-tender, non-distended. Musculoskeletal: Normal range of motion and strength, bilateral calf tenderness, trace bilateral leg??edema. Skin: Skin is warm, dry and appropriate for ethnicity, no rashes or lesions. Neurologic: Awake, alert and oriented X4, CN II-XII grossly intact. Psychiatric: Cooperative, appropriate mood and affect. Medical Decision Making: Patient is a 72 year old female who presents with four days of progressive??symptoms of chest pressure, palpitations, and shortness of breath. Physical exam findings include holosystolic heart murmur, lungs CTABL, and bilateral calf tenderness and trace leg edema. ECG shows sinus tachycardia with arate of 116. Labs show troponin of 0.02; K+ 3.3 mmol/L; Mg 1.7 mg/dL; PT 11.0 sec. CXR showed no focal consolidation, normal cardiomediastinal contour, and normal pleural margins with no pleural effusion or pneumothorax. The patient was given 5mg IV lopressor and 40mg of lasix IV. Repleted Mg and K+??with 400mg of MgOx and 40mg K+ PO. This is likely rebound tachycardia due to the patient stoppingher metoprolol. There may also be an element of stable angina??as the patient's symptoms of SOB andchest pressure are worse with activity. MT??was ruled out due to negative ECG and repeat troponins.CHF exacerbation was ruled out with a BNP of 54 and lungs CTABL. PE is unlikely with a low Wells score. ?? I discussed her case with her primary care provider Dr. Quan who will see her in follow-up.?? His plan is to order a outpatient cardiac stress test.?? He is in agreement with resuming her Metroprolol 25 mg p.o. twice daily.?? She is also given potassium and magnesium supplements for 5 days he will follow her electrolytes outpatient.?? She has responded well to the IV Lasix voiding several times while being monitored in the department.?? She reports improvement in her shortness of breath and resolution of her chest pressure with improvement of her heart rate from the 110's to the 80s.?? She is being discharged to home with no new services Procedure No Qualifying Data Assessment/Plan 1.??Stable angina??I20.8 2.??Palpitation??R00.2 Patient is a 72 year old female with PMHx of HTN, cirrhosis, pre-diabetes, cardiac cath (2016), andheart murmur who presents for SOB and palpitations that began 09/14/22. These symptoms are likely due to rebound tachycardia from stopping metoprolol with an element of stable angina. K+ and Mg were repleted PO??and lopressor and lasix were given IV. The patient should restart metoprolol 25mg BID, follow-up with??her PCP, and schedule and outpatient stress test. Patient Discharge Condition Improving Discharge Disposition Home with no new services Medication Reconciliation Unchanged atorvastatin ?? furosemide (Lasix) ?? gabapentin ?? lisinopril (lisinopril 5 mg oral tablet)fu. ?? metoprolol (metoprolol succinate 25 mg oral capsule, extended release) ?? omeprazole (PriLOSEC) ?? spironolactone Problem List/Past Medical History Ongoing Palpitation Historical No qualifying data Medication Administration Given Sodium Chloride 0.9%, 1000 mL, IV Bolus furosemide, 40 mg, IV Push Lopressor, 5 mg, IV Push magnesium oxide, 400 mg, Oral Metoprolol Tartrate, 25 mg, Oral potassium chloride, 40 mEq, Oral Allergies No Known Allergies Social History Electronic Cigarette/Vaping Electronic Cigarette Use: Never. Tobacco Never tobacco user Tobacco Use:. Diagnostic Results XR Chest 2 Views 09/18/2022 10:25 EST XR Chest 2 Views ?? 09/18/22 10:23:05 EXAM DESCRIPTION: XR Chest 2 Views ?? 09/18/2022 ?? INDICATION: SOB ?? COMPARISON: 10/25/2017 ?? IMPRESSION: No focal consolidation. Mild bilateral peripheral interstitial changes of uncertain chronicity which may reflect mild interstitial lung disease/fibrosis or possible mild interstitial pulmonary edema. ?? Normal cardiomediastinal contour. ?? Normal pleural margins with no pleural effusion or pneumothorax. ?? Spondylotic changes of the dorsal spine. ? JOB #: [id number] Electronically Signed By: ?? Signed By: Leo Galan MD Lab Results CBC and Differential?? LATEST RESULTS?? WBC?? 09/18/22 09:35?? 4.6 ??Low?? RBC?? 09/18/22 09:35?? 4.65?? Hgb?? 09/18/22 09:35?? 14.3?? Hct?? 09/18/22 09:35?? 42.3?? MCV?? 09/18/22 09:35?? 91.0?? MCH?? 09/18/22 09:35?? 30.8?? MCHC?? 09/18/22 09:35?? 33.8?? RDW-CV?? 09/18/22 09:35?? 13.8?? Platelets?? 09/18/22 09:35?? 225?? MPV?? 09/18/22 09:35?? 9.9?? Neutro Auto?? 09/18/22 09:35?? 60.1?? Lymph Auto?? 09/18/22 09:35?? 26.3?? Platte Auto?? 09/18/22 09:35?? 10.1 ??High?? Eos, Auto?? 09/18/22 09:35?? 2.60?? Basophil Auto?? 09/18/22 09:35?? 0.7?? Imm Gran Auto?? 09/18/22 09:35?? 0.2?? Neutro Absolute?? 09/18/22 09:35?? 2.8?? Lymph Absolute?? 09/18/22 09:35?? 1.2?? Platte Absolute?? 09/18/22 09:35?? 0.5?? Eos Absolute?? 09/18/22 09:35?? 0.1?? Baso Absolute?? 09/18/22 09:35?? 0.0?? Imm Gran Absolute?? 09/18/22 09:35?? 0.01? Coagulation?? LATEST RESULTS?? Prothrombin Time?? 09/18/22 09:35?? 11.0 ??High?? INR?? 09/18/22 09:35?? 1.1?? Partial Thromboplastin Time?? 09/18/22 09:35?? 25.8? Routine Chemistry?? LATEST RESULTS?? Sodium Level?? 09/18/22 09:35?? 137?? Potassium Level?? 09/18/22 09:35?? 3.3 ??Low?? Chloride Level?? 09/18/22 09:35?? 102?? CO2?? 09/18/22 09:35?? 25?? Alk Phos?? 09/18/22 09:35?? 65?? AST?? 09/18/22 09:35?? 32?? ALT?? 09/18/22 09:35?? 18?? BUN?? 09/18/22 09:35?? 10?? Glucose Level?? 09/18/22 09:35?? 106?? Creatinine Level?? 09/18/22 09:35?? 0.83?? BUN/Creat Ratio?? 09/18/22 09:35?? 12.0?? eGFR AA?? 09/18/22 09:35?? 75?? eGFR Non-AA?? 09/18/22 09:35?? 75?? Calcium Level?? 09/18/22 09:35?? 8.8 ??Low?? Protein Total?? 09/18/22 09:35?? 6.8?? Albumin Level?? 09/18/22 09:35?? 3.5?? Globulin?? 09/18/22 09:35?? 3.3?? A/G Ratio?? 09/18/22 09:35?? 1.1?? Bilirubin Total?? 09/18/22 09:35?? 1.1?? Anion Gap?? 09/18/22 09:35?? 10.0?? Magnesium Level?? 09/18/22 09:35?? 1.7 ??Low?? Osmolality?? 09/18/22 09:35?? 273 ??Low? Cardiac Isoenzymes?? LATEST RESULTS?? Troponin-I?? 09/18/22 09:35?? 0.02?? BNP?? 09/18/22 09:35?? 54? Thyroid Studies?? LATEST RESULTS?? TSH?? 09/18/22 09:35?? 1.69? Electronically Signed on 09/18/22 11:32 AM Candy Dawn Electronically Signed on 09/19/22 01:28 AM Jessica Mitchell APRN Reviewed by: Candy Melendez APRN Emergency department Discharge instructions * Jessica Mitchell APRN: PERFORM Event Display: ED Discharge Information Authored Date: [id number] SHERRON MOYA :1950 Age:72 years Sex:Female Visit Date:09/18/2022 Primary Care Physician: MYKE GORDILLO MD Discharge Instructions We would like to thank you for allowing us to assist you with your healthcare needs. The following includes patient education materials and information regarding your injury/illness. Diagnosis from Today's Visit Palpitation Angina pectoris without myocardial infarction Discharge Vitals Temperature??(Temporal Artery) 97.7 ??F (36.5 ??C) Heart Rate??(Monitored) 81 Respiratory Rate?? 16 Blood Pressure?? 147/64?? Height?? 61.81 in (157.000 cm) Weight??(Estimated) 310.91 lb (141.00 kg) Allergies No Known Allergies What to Do Next Instructions from Your Care Team please resume taking your metoprolol as previously directed. your doctor will set up outpatient cardiac stress test to further evaluate your symptoms your magnesium and potassium were slightly low on todays lab evaluation.?? we are giving you 3 daysof supplemental to take. You Need to Schedule the Following Appointments Follow Up with??MYKE GORDILLO MD When:??Within 3 to 5 days Why: call to schedule follow up appointment Where: [address] [place] [phone]- You were treated today on an emergency basis; it may be mercado to contact your primary care provider to notify them of your visit today. You may have been referred to your regular doctor or a specialist, please follow up as instructed. If your condition worsens or you can't get in to see the doctor, contact the Emergency Department. Medications What How Much When Why Instructions Next Dose New magnesium oxide (magnesium oxide 500 mg oral capsule) 1 Capsules Oral (given by mouth) Every day Stable angina Palpitation Duration: 5 Days Printed Prescription New potassium chloride (potassium chloride 20 mEq oral tablet, extended release) 1 tab Oral (given by mouth) Every day Stable angina Palpitation Printed Prescription Changed metoprolol (metoprolol succinate 25 mg oral capsule, extended release) Changed metoprolol (Metoprolol Tartrate 25 mg oral tablet) 1 tab Oral (given by mouth) 2 times a day Palpitation Angina pectoris without myocardial infarction Printed Prescription Unchanged atorvastatin Unchanged furosemide (Lasix) Unchanged gabapentin Unchanged lisinopril (lisinopril 5 mg oral tablet) fu Unchanged omeprazole (PriLOSEC) Unchanged spironolactone Education Materials Palpitations Palpitations are feelings that your heartbeat is not normal. Your heartbeat may feel like it is: ? Uneven. ? Faster than normal. ? Fluttering. ? Skipping a beat. This is usually not a serious problem. In some cases, you may need tests to rule out any serious problems. Follow these instructions at home: Pay attention to any changes in your condition. Take these actions to help manage your symptoms: Eating and drinking ? Avoid: ? Coffee, tea, soft drinks, and energy drinks. ? Chocolate. ? Alcohol. ? Diet pills. Lifestyle ? Try to lower your stress. These things can help you relax: ? Yoga. ? Deep breathing and meditation. ? Exercise. ? Using words and images to create positive thoughts (guided imagery). ? Using your mind to control things in your body (biofeedback). ? Do not use drugs. ? Get plenty of rest and sleep. Keep a regular bed time. General instructions ? Take [id number] and prescription medicines only as told by your doctor. ? Do not use any products that contain nicotine or tobacco, such as cigarettes and e-cigarettes. If you need help quitting, ask your doctor. ? Keep all follow-up visits as told by your doctor. This is important. You may need more tests if palpitations do not go away or get worse. Contact a doctor if: ? Your symptoms last more than 24 hours. ? Your symptoms occur more often. Get help right away if you: ? Have chest pain. ? Feel short of breath. ? Have a very bad headache. ? Feel dizzy. ? Pass out (faint). Summary ? Palpitations are feelings that your heartbeat is uneven or faster than normal. It may feel like your heart is fluttering or skipping a beat. ? Avoid food and drinks that may cause palpitations. These include caffeine, chocolate, and alcohol. ? Try to lower your stress. Do not smoke or use drugs. ? Get help right away if you faint or have chest pain, shortness of breath, a severe headache, or dizziness. This information is not intended to replace advice given to you by your health care provider. Make sure you discuss any questions you have with your health care provider. Document Revised: 12/15/2021 Document Reviewed: 10/01/2018 [employer] Patient Education ?? 2021 [employer] Angina Angina is discomfort or pain in the chest, neck, arm, jaw, or back. The discomfort is caused by a lack of blood in the middle layer of the heart wall. The middle layer of the heart wall is called themyocardium. What are the causes? This condition is caused by a buildup of fat and cholesterol, or plaque, in your arteries. This buildup narrows the arteries and makes it hard for blood to flow. What increases the risk? Main risks ? High levels of cholesterol in your blood. ? High blood pressure. ? Diabetes. ? Family history of heart disease. ? Not exercising or moving enough. ? Depression. ? Having had radiation treatment on the left side of your chest. Other risks ? Tobacco use. ? Too much body weight (obesity). ? A diet that is high in unhealthy fats (saturated fats). ? Stress. ? Using drugs, such as cocaine. Risks for women ? Being older than 55 years. ? Being in menopause. This is the time when a woman no longer has a menstrual period. What are the signs or symptoms? Symptoms in all people ? Chest pain, which may: ? Feel like a crushing or squeezing in the chest. ? Feel like a tightness, pressure, fullness, or heaviness in the chest. ? Last for more than a few minutes at a time. ? Stop and come back (recur) after a few minutes. ? Pain in the neck, arm, jaw, or back. ? Heartburn or upset stomach (indigestion) for no reason. ? Being short of breath. ? Feeling like you may vomit (nauseous). ? Sudden cold sweats. Symptoms in women and people with diabetes ? Tiredness. ? Worry and anxiety. ? Weakness. ? Dizziness or fainting. How is this treated? This condition may be treated with: ? Medicines. These can be given to prevent blood clots, stop a heart attack, lower blood pressure, ortreat other risk factors. ? A procedure to widen a narrowed or blocked artery in the heart. ? Surgery to allow blood to go around a blocked artery. Follow these instructions at home: Medicines ? Take dcni-fgt-fqvljcz and prescription medicines only as told by your doctor. ? Do not take these medicines unless your doctor says that you can: ? NSAIDs. These include: ? Ibuprofen. ? Naproxen. ? Vitamin supplements that have vitamin A, vitamin E, or both. ? Hormone therapy that contains estrogen with or without progestin. Eating and drinking ? Eat a heart-healthy diet that includes: ? Lots of fresh fruits and vegetables. ? Whole grains. ? Low-fat (lean) protein. ? Low-fat dairy products. ? Follow instructions from your doctor about what you cannot eat or drink. Activity ? Follow an exercise program that your doctor tells you. ? Talk with your doctor about joining a program to make your heart strong again (cardiac rehab). ? When you feel tired, take a break. Plan breaks if you know you are going to feel tired. Lifestyle ? Do not smoke or use any products that contain nicotine or tobacco. If you need help quitting, ask your doctor. ? If your doctor says you can drink alcohol: ? Limit how much you have to: ? 0???1 drink a day for women who are not . ? 0???2 drinks a day for men. ? Know how much alcohol is in your drink. In the [place] one drink equals one 12 oz bottle of beer (355mL), one 5 oz glass of wine (148 mL), or one 1?? oz glass of hard liquor (44 mL). General instructions ? Stay at a healthy weight. If told to lose weight, work with your doctor to do lose weight safely. ? Learn to manage stress. If you need help, ask your doctor. ? Keep your vaccines up to date. Get a flu shot every year. ? Talk with your doctor if you feel sad. Take a screening test to see if you are at risk for depression. ? Work with your doctor to manage any other health problems that you have. These may include diabetesor high blood pressure. ? Keep all follow-up visits. Get help right away if: ? You have pain in your chest, neck, arm, jaw, or back, and the pain: ? Lasts more than a few minutes. ? Comes back. ? Does not get better after you take medicine under your tongue (sublingual nitroglycerin). ? Keeps getting worse. ? Comes more often. ? You have any of these problems: ? Sweating a lot. ? Heartburn or upset stomach. ? Shortness of breath. ? Trouble breathing. ? Feeling like you may vomit. ? Vomiting. ? Feeling more tired than normal. ? Feeling nervous or worrying more than normal. ? Weakness. ? You are dizzy or light-headed all of a sudden. ? You faint. These symptoms may be an emergency. Get help right away. Call your local emergency services (911 int [place] ? Do not wait to see if the symptoms will go away. ? Do not drive yourself to the hospital. Summary ? Angina is discomfort or pain in the chest, neck, arm, neck, or back. ? Symptoms include chest pain, heartburn or upset stomach, and shortness of breath. ? Women or people with diabetes may have other symptoms, such as feeling nervous, being worried, or being weak or tired. ? Take all medicines only as told by your doctor. ? You should eat a heart-healthy diet and follow an exercise program. This information is not intended to replace advice given to you by your health care provider. Make sure you discuss any questions you have with your health care provider. Document Revised: 02/10/2021 Document Reviewed: 02/10/2021 [employer] Patient Education ?? 2021 [employer] Tests Performed Radiology XR Chest 2 Views 09/18/2022 10:25 EST Medications and Immunizations Administered Given Sodium Chloride 0.9%, 1000 mL, IV Bolus furosemide, 40 mg, IV Push Lopressor, 5 mg, IV Push magnesium oxide, 400 mg, Oral Metoprolol Tartrate, 25 mg, Oral potassium chloride, 40 mEq, Oral Lab Test Name Test Result Date/Time WBC 4.6 K/mcL 09/18/2022 09:35 EST RBC 4.65 Million/mcL 09/18/2022 09:35 EST Hgb 14.3 g/dL 09/18/2022 09:35 EST Hct 42.3 % 09/18/2022 09:35 EST MCV 91.0 fL 09/18/2022 09:35 EST MCH 30.8 pg 09/18/2022 09:35 EST MCHC 33.8 g/dL 09/18/2022 09:35 EST RDW-CV 13.8 % 09/18/2022 09:35 EST Platelets 225 K/mcL 09/18/2022 09:35 EST MPV 9.9 fL 09/18/2022 09:35 EST Neutro Auto 60.1 % 09/18/2022 09:35 EST Lymph Auto 26.3 % 09/18/2022 09:35 EST Platte Auto 10.1 % 09/18/2022 09:35 EST Eos, Auto 2.60 % 09/18/2022 09:35 EST Basophil Auto 0.7 % 09/18/2022 09:35 EST Imm Gran Auto 0.2 % 09/18/2022 09:35 EST Neutro Absolute 2.8 K/mcL 09/18/2022 09:35 EST Lymph Absolute 1.2 K/mcL 09/18/2022 09:35 EST Platte Absolute 0.5 K/mcL 09/18/2022 09:35 EST Eos Absolute 0.1 K/mcL 09/18/2022 09:35 EST Baso Absolute 0.0 K/mcL 09/18/2022 09:35 EST Imm Gran Absolute 0.01 09/18/2022 09:35 EST Prothrombin Time 11.0 seconds 09/18/2022 09:35 EST INR 1.1 09/18/2022 09:35 EST Partial Thromboplastin Time 25.8 seconds 09/18/2022 09:35 EST Sodium Level 137 mmol/L 09/18/2022 09:35 EST Potassium Level 3.3 mmol/L 09/18/2022 09:35 EST Chloride Level 102 mmol/L 09/18/2022 09:35 EST CO2 25 mmol/L 09/18/2022 09:35 EST Alk Phos 65 IntlUnit/L 09/18/2022 09:35 EST AST 32 IntlUnit/L 09/18/2022 09:35 EST ALT 18 IntlUnit/L 09/18/2022 09:35 EST BUN 10 mg/dL 09/18/2022 09:35 EST Glucose Level 106 mg/dL 09/18/2022 09:35 EST Creatinine Level 0.83 mg/dL 09/18/2022 09:35 EST BUN/Creat Ratio 12.0 09/18/2022 09:35 EST eGFR AA 75 09/18/2022 09:35 EST eGFR Non-AA 75 09/18/2022 09:35 EST Calcium Level 8.8 mg/dL 09/18/2022 09:35 EST Protein Total 6.8 g/dL 09/18/2022 09:35 EST Albumin Level 3.5 g/dL 09/18/2022 09:35 EST Globulin 3.3 09/18/2022 09:35 EST A/G Ratio 1.1 09/18/2022 09:35 EST Bilirubin Total 1.1 mg/dL 09/18/2022 09:35 EST Anion Gap 10.0 09/18/2022 09:35 EST Magnesium Level 1.7 mg/dL 09/18/2022 09:35 EST Osmolality 273 mOsm/kg 09/18/2022 09:35 EST Troponin-I 0.03 ng/mL 09/18/2022 12:55 EST BNP 54 pg/mL 09/18/2022 09:35 EST TSH 1.69 mIntlUnit/mL 09/18/2022 09:35 EST Employed in healthcare? No 09/18/2022 10:40 EST Symptomatic as defined by CDC? Unknown 09/18/2022 10:40 EST Hospitalized due to COVID-19? No 09/18/2022 10:40 EST In ICU? No 09/18/2022 10:40 EST Group care resident? No 09/18/2022 10:40 EST status? Unknown 09/18/2022 10:40 EST SARS-CoV-2(Covid19)PCR(GXpert COVFLURSV) Neg-GeneXPert 09/18/2022 10:40 EST Flu A (GXpert COVFLURSV) Neg-GeneXPert 09/18/2022 10:40 EST Flu B (GXpert COVFLURSV) Neg-GeneXPert 09/18/2022 10:40 EST RSV (GXpert COVFLURSV) Neg-GeneXPert 09/18/2022 10:40 EST Patient/Analyst Signature Patient Name:SHERRON MOYA I have received this information and my questions have been answered. Patient/Analyst Name: Patient/Analyst Signature: Relationship to Patient: Witness Name/Signature: Date: Electronically Signed on: 09/18/2022 14:09 ESTSigned by:[facility] XR Chest 2 Views * Leo Galan MD: VERIFY, VERIFY Event Display: Report EXAM DESCRIPTION: XR Chest 2 Views 09/18/2022 INDICATION: SOB COMPARISON: 10/25/2017 IMPRESSION: No focal consolidation. Mild bilateral peripheral interstitial changes of uncertain chronicity which may reflect mild interstitial lung disease/fibrosis or possible mild interstitial pulmonary edema. Normal cardiomediastinal contour. Normal pleural margins with no pleural effusion or pneumothorax. Spondylotic changes of the dorsal spine. JOB #: [id number] Final Signed by: Leo Galan MD Signed (Electronic Signature): 09/18/2022 10:23 am Patient Care team information Personnel Name: MYKE GORDILLO MD Address: Address: [address] [place] [phone]- [place]
--- OUTSIDE RECORDS SUMMARY | 2023-09-20 13:37 | XMS_ITS | Continuity of Care Document ---
Author Name Unknown Organization [facility] Address [address] [place] [id number] Care Team Providers Care Rehabilitation Medicine Physician Name Role Phone MYKE GORDILLO MD Primary Care Physician Encounter [facility] NBR [id number] Date(s): 08/06/23 - 08/06/[address] [phone] [place] Encounter Diagnosis Encounter for screening mammogram for malignant neoplasm of breast(Final) - Discharge Disposition: Home or Self Care Attending Physician: MYKE GORDILLO MD Admitting Physician: MYKE GORDILLO MD Referring Physician: MYKE GORDILLO MD Allergies, Adverse Reactions, Alerts No Known Allergies Medications atorvastatin 0 Refill(s) Start Date: 09/18/22 [...] infarction Confirmed Active Palpitation Confirmed Active Results Radiology Reports * Exam Date Time Procedure Performing Provider Status 08/06/23 6:42 AM MG Mammo Screening Bilateral [place], A nna; Auth (Verified) Notes: (MG Mammo Screening Bilateral) Reason For Exam: SCREENING MG Mammo Screening Bilateral EXAM DESCRIPTION: MG Mammo Screening Bilateral 08/06/2023 INDICATION: SCREENING COMPARISON: 06/08/2022 and 05/01/2017 BREAST DENSITY: The breasts are almost entirely fatty. FINDINGS: MLO and CC views were performed with digital breast tomosynthesis. Images were reviewed using computer aided detection. No asymmetry, architectural distortion or suspicious grouping of calcifications to suggest malignancy in either breast. ASSESSMENT: No mammographic evidence of malignancy. Negative. BI-RADS category 1. RECOMMENDATION: Screening mammography in 1 year JOB #: [id number] Final Signed by: eLo Galan MD Signed (Electronic Signature): 08/06/2023 9:21 am Social History Social History Type Response Tobacco Never tobacco user T obacco Use:. Sex Patient Care team information Care Team Personnel Name: MYKE GORDILLO MD Position: No Access Member Role: Primary Care Physician Address: Address: [address] [place] [phone] [place] Care Team Related Persons Name: BIENVENIDO MARAVILLA Address: Home [address] [place] [phone] Name: JENNY DE LEON
--- NOTE | 2023-10-01 13:30 | DI.US_ITS ---
APPROVED REPORT EXAM: Comprehensive 2D, Doppler, and color-flow Echocardiogram Patient Location: Out-Patient Lean Engineer: Dung Gonzalez RDCS (AE) Indications: Systolic heart murmur Conclusion LA mildly to moderately dilated, other chambers normal sizes. Normal LV systolic function, EF 60-65%. Grade 1 diastolic dysfunction. Normal RV function Anatomically normal valves.Mild TR without phtn. No intracardiac shunt No pericardial effusion. Wall motion Left Ventricle The left ventricle is normal size. The left ventricular systolic function is normal. The left ventric ular ejection fraction is within the normal range. Borderline concentric left ventricular hypertrophy . There is normal LV segmental wall motion. There is no ventricular septal defect visualized. LVEF is 62%. Right Ventricle The right ventricle is normal size. The right ventricular systolic function is normal. Atria The left atrium size is normal. Right atrium is mildly dilated. The interatrial septum is intact with no evidence for an atrial septal defect. Aortic Valve The aortic valve is normal in structure. Aortic valve is trileaflet. No hemodynamically significant v alvular aortic stenosis. No aortic regurgitation is present. Mitral Valve Moderate mitral annular calcification. No evidence of mitral valve stenosis. Trace to mild mitral reg urgitation. Tricuspid Valve The tricuspid valve is normal in structure. There is no tricuspid valve stenosis. Mild tricuspid regu rgitation. The RVSP is 19.3 mmHg. Pulmonic Valve The pulmonary valve is normal in structure. There is no pulmonic valvular stenosis. There is no pulmo jessica valvular regurgitation. Great Vessels The aortic root is normal in size. Ascending aorta is not well visualized. Aortic arch is normal in c aliber. IVC is normal in size and collapses >50% with inspiration. Pericardium There is no pericardial effusion. 2D Dimensions IVSD d PLAX 1.14 cm F: 0.6-1.0 Ao Root d 2.99 cm F: 2.7 - 3.3 LVPW d PLAX 1.04 cm F: 0.6 - 1.0 LVID d PLAX 4.43 cm F: 3.8 - 5.2 LVDs 2.96 cm F: 2.2 - 3.5 LV EF Teichholz 61.9 % FS 33.12 % LV EDV (Teich) 89.1 mL LV ESV (Teich) 33.9 mL Stroke Vol Index (Teich) 25.18 M-Mode TAPSE 2.57 cm (M/F) >1.7 Auto EF LV EDV A4C 121.7 mL LV EDV A2C 127.0 mL LV EDV BP 124.1 mL LV ESV A4C 45.9 mL LV ESV A2C 49.1 mL LV ESV BP 48.6 mL LVEF(%) A4C 62.3 % LVEF(%) A2C 61.4 % LVEF(%) BP 60.8 % LV SV A4C 75.8 ml LV SV A2C 77.9 ml LV SV BP 75.5 ml LV CO A4C 5.3 L/min LV CO A2C 5.4 L/min LV CO BP 5.3 L/min HR A4C 69.24 BPM HR A2C 69.77 BPM LV EDV Index (BP) LA Volume LA Length A4C 5.3 cm LA Length A2C 5.3 cm LA Area A4C s 13.58 cm2 LA Area A2C s 16.45 cm2 LA Vol A4C A-L 29.51 mL LA Vol A2C A-L 43.74 mL LA Vol Biplane A-L 36.1 mL LA Vol/BSA A4C A-L LA Vol/BSA A2C A-L LA Vol/BSA BP A-L 16.5 mL/m2 LA Vol A4C MOD 28.1 mL LA Vol A2C MOD 41.4 mL LA Vol BP MOD 33.8 mL RA Volume RA Area A4C 10.0 cm2 RA ESV A4C (A-L) 21.5mL RA Vol/BSA A4C A-L RA Length A4C 4.0 cm RA ESV A4C (MOD) 20.1mL LV Diastology MV E' medial 0.079 (>0.07 m/s) MV E Vmax 0.63 (0.4-1.3 m/s) MV E/E' MED 7.96 (<14) MV A Vmax 1.15 (0.4-1.3 m/s) MV E' lateral 0.099 (>0.1 m/s) E/A Ratio 0.5 MV E/E' LAT 6.39 (<14) MV E' Average 0.089 m/s MV E/E'(average) 7.08 Aortic Valve AoV Vmax 2.25 m/s LVOT Vmax 1.69 m/s AoV Peak Grad 20.2 mmHg LVOT Peak Grad 11.4 mmHg AoV Area (Vmax) 1.67 cm2 LVOT VTI 0.485 m AoV VTI 0.607 m LVOT Mean Grad 7.4 mmHg AoV Mean Rob. 1.68 m/s LVOT SV 107.66 mL AoV Mean Grad 12.5 mmHg LVOT Diam s 1.65 cm AoV Area (VTI) 1.77 cm2 Velocity Ratio 0.75 Mitral Valve MV DT 206 (160-240 msec) Pulmonary Valve PV Vmax 1.19 (0.5-1.5 m/s) RVOT Vmax 0.71 m/s PV Peak Grad 5.7 mmHg RVOT Peak Gr. 2.1 mmHg PV Mean Rob 0.86 m/s RVOT VTI 0.175 m PV Mean Grad 3.4 mmHg RVOT Mean Gr. 1.1 mmHg Tricuspid Valve RA Pressure 3.00 mmHg TR Vmax 2.02 m/s TR Peak Grad 16.3 mmHg RVSP (TR) 19.3 mmHg
== END ==
PROVIDERS: PCP Family Medicine; Visit Provider Family Medicine
DX: R01.1 Cardiac murmur, unspecified (principal)
CPT/HCPCS: 93306

== ENCOUNTER 2024-01-06 11:26 | Outpatient (REF) | payer OTHER, SELFPAY ==
[2024-01-06 15:04] LABS: HCT 41.3 % (36.0-46.0); HGB 13.1 g/dL (11.2-15.7); MCH 29.8 pg (27.0-33.0); MCHC 31.7 % (32.0-36.0); MCV 94 fL (80-95); Platelet Count 217 10^3/uL (130-400); RDW 13.9 % (11.7-14.6); WBC 4.49 10^3/uL (4.4-10.8)
[2024-01-06 15:33] LABS: Hemoglobin A1C 5.5 % (<5.7)
[2024-01-06 15:48] LABS: ALT 23 U/L (14-59); AST 26 U/L (15-37); Albumin 3.5 g/dL (3.4-5.0); Alkaline Phosphatase 87 U/L (46-116); Anion Gap 8.2 mmol/L (3-11); BUN 12 mg/dL (7-18); Bilirubin, Total 1.2 mg/dL (0.2-1.0); CO2 31.8 mmol/L (21.0-32.0); CREATININE 0.8 mg/dL (0.55-1.02); Calcium 8.9 mg/dL (8.5-10.1); Chloride 107 mmol/L (98-107); Estimated GFR 78.24 (mL/min/1.73m2); FREE T4 0.81 ng/dL (0.76-1.46); Glucose 87 mg/dL (74-106); Potassium 4.3 mmol/L (3.5-5.1); Sodium 147 mmol/L (136-145); TSH 1.79 uIU/Ml (0.36-3.74); Total Protein 6.8 g/dL (6.4-8.2)
== END 2024-01-06 11:27 | disposition home or self-care (01) ==
LOC: NCHCN 11:26
PROVIDERS: PCP Family Medicine; Visit Provider Physician Assistant
DX: R73.03 Prediabetes (principal); R00.2 Palpitations
CPT/HCPCS: 80053; 85027; 83036; 84439; 84443

== ENCOUNTER 2024-07-07 13:33 | Outpatient (REF) | payer OTHER, SELFPAY ==
--- OUTSIDE RECORDS SUMMARY | 2024-07-07 13:35 | XMS_ITS | Encounter Summary ---
[facility] [place] [place] [address] Care Team Providers Care Electrician Name Role Phone Justino Lucia MD Primary Care Provider [phone] Encounter Details Date Type Department Care Team ([facility] Contact Info) Description 05/20/2024 [place] [address] Yesi Ibanez [facility] Social History Tobacco Use Types Packs/Day Years Used Date Smoking Tobacco: Former Cigarettes 3 42 Smokeless Tobacco: Never Alcohol Use Standard Drinks/Week Comments No 0 (1 standard drink = 0.6 oz pur e alcohol) Sex and Gender Information Value Date Recorded Sex Assigned at Not on file Gender Identity Not on file Sexual Orientation Not on file documented as of this encounter Progress Notes * Yesi Ibanez [facility] - 05/20/2024 11:40 AM EDT [facility] Medication Assistance Program (MAP) -Date Prescription(s) Received: 05/20/2024 -Date Medication(s) received: 05/19/24 -Medication(s) Received: Ozempic 2mg -Quantity received: 12ml -Dividend Clerk: song -Status of prescription: Shipped -Date Mailed/Picked up: 05/28/2024 -Address Mailed to: [address] [place] [address], [id number] -Tracking No.: [id number] documented in this encounter Plan of Treatment Upcoming Encounters Date Type Department Care Team (Late st Contact Info) Description 07/22/2024 9:00 AM EST [place] [phone] Ana Ho MD [facility] [place] [address] 07/22/2024 10:00 AM EST Laboratory Appointment Lab [address] [place] [address] 07/22/2024 11:00 AM EST Office [place] [phone] Ana Ho MD [facility] [place] [address] 09/15/2024 10:00 AM EST TH Visit (TeleHealth) [place] [phone] Candy Clifford MD [facility] DR [address] [place] [address] Scheduled Procedures Name Priority Associated Diagnoses Date/Ti me EGD, UPPER GI ENDOSCOPY (WRV U 2.09) Hepatic cirrhosis, unspecified hepatic cirrhosis type, unspecified whether ascites present documented as of this encounter Goals Goal Patient Goal Type Associated Problems Recent Progress Patient-Stated? Author movement Exercise On track(2021 11:16 AM EDT) No Pankaj Mcadams Note: Try gentle movement like chair yoga, t'ai chi and qigong. Health Literacy Specialist will send hand-outs. Use resistance bands. Health Literacy Specialist will request a set be mailed. Movement Exercise On track(2021 11:16 AM EDT) No Pankaj Mcadams Note: Look around town, senior center, gyms, for a class to participate in, bone builders or gentle stretching. Nutrition Lifestyle No Candy Clifford MD Note: Nutrition Goals updated today: 12/11/22 TF 1. Focus on reaching adequate protein intake - aim for 60-80 grams (handout attached in after visit summary) 2. Consider the 3 eating events per day to be an opportunity to start with protein (cottage cheese, amharic yogurt, protein smoothies, chicken or chicken salad 3. Increase awareness around 1 serving of fruit (frozen) and 1-2 serving of vegetables; frozen, canned and fresh are all appropriate 4. Balanced plate of food at dinner looks like: 3 ounces of chicken, 1/2 cup-1 cup cooked vegetables and then 1/2 cup starch (potatoe, rice, past) - eat in order of protein first, vegetable next, starch last Nutrition Goals: 03/16/22 TF Write down meal ideas (statred this today) - look for sample meal ideas in the [facility] Keep food log until you are seen by the dieititian. Record everything you eat or drink, include time eaten and any emotional changes that are significant. relaxation/sleep Lifestyle No Pankaj Mcadams Note: Try some meditation/relaxation apps when I wake in the night and can't go back to sleep. Health Literacy Specialist will send some to try. Tried apps but don't really like them as I like the quiet when going to sleep. [facility] 04/23 documented as of this encounter Visit Diagnoses Not on filedocumented in this encounter Care Teams Electrician Relationship Specialty Start Date End Date Justino Lucia MD PCP - General Family Medicine 10/04/21 documented as of this encounter
--- OUTSIDE RECORDS SUMMARY | 2024-07-07 13:35 | XMS_ITS | Encounter Summary ---
Author Organization [facility] Address [address] [place] [address] Care Team Providers Care Yard Inspector Name Role Phone Unknown, Provider Primary Care Provider Unava ilable Encounter Details Date Type Department Care Team (Late st Contact Info) Description 12/04/2016 Results Only [facility] [phone] Dustin Boyd MD [address] [facility] [address] [place] [address] Social History Tobacco Use Types Packs/Day Years Used Date Smoking Tobacco: Never Assessed Sex and Gender Information Value Date Recorded Sex Assigned at Not on file Gender Identity Not on file Sexual Orientation Not on file documented as of this encounter Plan of Treatment Not on file documented as of this encounter Procedures Procedure Name Priority Date/Time Associated Diagnosis Comments SURGICAL PATHOLOGY Routine 12/04/2016 18 :40 EDT documented in this encounter Results * SURGICAL PATHOLOGY (12/04/2016 18:40 EDT) Pathology Report: SURGICAL PATHOLOGY REPORT Reports generated via electronic interface contain original data; however they are lacking the format of the original report. Caution should be taken when reading/interpret ing unformatted reports. Name: ? TELMA RICHTER ? Accession #: ? [id number] ? : ? 1950 (Age: 66) ??F ? Collect Date: ? 12/04/2016 ? Location: ? [facility] ? Receive Date: ? 12/05/2016 ? Provider: MANUEL BOYD MD Copy to: KATHLEEN LANGP ? Final Pathologic Diagnosis: A. DUODENUM, 2ND PORTION, BIOPSY: - ??Duodenal mucosa with no specific pathologic features. B. STOMACH, ANTRUM AND BODY, BIOPSY: - ??Gastric antral mucosa with reactive gastropathy and focal intestinal metaplasia. - ??Negative for dysplasia. - ??No histological evidence of H. pylori on H&E stain. Comment: No gastric oxyntic mucosa is present. Mucosal capillary congestion without significant dilatation is noted. The findings are compatible but not diagnostic for portal hypertensive gastropathy. Clinical correlation is recommended. Dr. Campbell 12/07/2016 9:26 AM Document reviewed and electronically signed by: LEILA CAMPBELL MD Report ??Date: 12/07/2016 09:45 By the signature above, the attending physician certifies that he/she has personally conducted a gross and/or microscopic examination of the described specimens and rendered or confirmed the above diagnosis. Specimen(s) Received: A. ??2nd portion of duodenum B. ??Antrum and body Clinical History: Liver cirrhosis; clinical diagnosis code: K74.60, I86.4 Gross Description: A. ?Received in formalin labelled with proper patient identification (initials A, D) and 2nd portion of duodenum is a single fragment of pale yellow tissue (0.4 x 0.2 x 0.1 cm). The specimen is submitted entirely in A1. B. ?Received in formalin labelled with proper patient identification (initials A, D) and antrum and body are two fragments of pale yellow tissue (each 0.2 x 0.2 x 0.2 cm). The specimens are submitted entirely in B1. TRENTON Sanchez (ASCP) 12/06/2016 8:49 AM End of Report [facility] 12/04/2016 18:4 0 EDT 12/05/2016 18:40 EDT Dustin Boyd MD PATHOLOGY ORDERABLES [facility] [address] [place] [address] documented in this encounter Visit Diagnoses Not on filedocumented in this encounter Care Teams Yard Inspector Relationship Specialty Start Date End Date Unknown, Provider, PCP - General 03/29/16 12/09/16 documented as of this encounter
--- OUTSIDE RECORDS SUMMARY | 2024-07-07 13:35 | XMS_ITS | Encounter Summary ---
Author Organization [facility] Address [address] [place] [address] Care Team Providers Care Asphalt Paver Name Role Phone Unknown, Provider Primary Care Provider Unava ilable Encounter Details Date Type Department Care Team (Latest Contact Info) Description 12/04/2016 8:27 EDT - 12/04/2016 12:50 EDT Hospital Encounter [address] [address] Unknown, ProviderMD Discharge Disposition: Home or Self Care Social History Tobacco Use Types Packs/Day Years Used Date Smoking Tobacco: Never Assessed Sex and Gender Information Value Date Recorded Sex Assigned at Not on file Gender Identity Not on file Sexual Orientation Not on file documented as of this encounter Discharge Disposition Disposition Code Departure Means Destination Home or Self [facility] documented in this encounter Plan of Treatment Not on file documented as of this encounter Visit Diagnoses Not on filedocumented in this encounter Care Teams Asphalt Paver Relationship Specialty Start Date End Date Unknown, ProviderMD PCP - General 03/29/16 12/09/16 documented as of this encounter
--- OUTSIDE RECORDS SUMMARY | 2024-07-07 13:35 | XMS_ITS | Encounter Summary ---
Author Organization [facility] Address [address] [place] [address] Care Team Providers Care Quartz Cutter Name Role Phone Amber Ratliff Primary Care Provider [phone] Encounter Details Date Type Department Care Team (Latest Contact Info) Description 05/09/2018 10:47 EDT - 05/09/2018 23:59 EDT Hospital Encounter [address] [address] Unknown, Provider, MD Discharge Disposition: Home or Self Care Social History Tobacco Use Types Packs/Day Years Used Date Smoking Tobacco: Never Assessed Sex and Gender Information Value Date Recorded Sex Assigned at Not on file Gender Identity Not on file Sexual Orientation Not on file documented as of this encounter Discharge Disposition Disposition Code Departure Means Destination Home or Self Prison documented in this encounter Plan of Treatment Not on file documented as of this encounter Visit Diagnoses Not on filedocumented in this encounter Care Teams Quartz Cutter Relationship Specialty Start Date End Date Amber Ratliff ARNP [address] [place] [address] PCP - General 12/10/16 documented as of this encounter
--- OUTSIDE RECORDS SUMMARY | 2024-07-07 13:35 | XMS_ITS | Encounter Summary ---
Author Organization [facility] Address [address] [place] [address] Care Team Providers Care Independent Sales Representative Name Role Phone Amber Ratliff MAHSA Primary Care Provider [phone] Encounter Details Date Type Department Care Team (Late st Contact Info) Description 07/11/2021 Lab Requisition [facility] Pathology & Laboratory Medicine - [address] [address] Trey Torres MD [address] [place] [phone] Excessive bleeding in the premenopausal period; Polyp of cervix uteri Social History Tobacco Use Types Packs/Day Years Used Date Smoking Tobacco: Never Assessed Interpersonal Safety Answer Date Record ed Physically Hurt Never 04/04/2020 Verbally Threaten Not on file 04/04/2020 Sex and Gender Information Value Date Recorded Sex Assigned at Not on file Gender Identity Not on file Sexual Orientation Not on file documented as of this encounter Plan of Treatment Not on file documented as of this encounter Procedures Procedure Name Priority Date/Time Associated Diagnosis Comments SURGICAL PATHOLOGY Today 07/07/2021 17 :15 EDT Excessive bleeding in the premenopausal period Polyp of cervix uteri documented in this encounter Results * SURGICAL PATHOLOGY (07/07/2021 17:15 EDT) Note to Patient The following pathology results have been interpreted by your pathologist and may be available to you before your health provider has had the opportunity to review them. Please allow time for your provider to receive these results and explore management options, if applicable. 07/14/2021 15:35 [facility] Final Diagnosis A. ENDOMETRIUM, CURETTAGE: - Endometrial polyp. See comment. - No cytologic atypia identified. 07/14/2021 15:35 [facility] Diagnosis Comment Deeper sections have been examined. 07/14/2021 15:35 [facility] Attestation There was significant resident/fellow involvement in the diagnostic evaluation of this case. By the signature below, the attending physician certifies that they have personally conducted a gross and/or microscopic examination of the described specimens and rendered or confirmed the above diagnosis. 07/14/2021 15:35 [facility] at 1535 Clinical History Uterine mass; clinical diagnosis code: N92.4, N84.1 07/14/2021 15:35 [facility] Gross Description A. Received in formalin labelled with proper patient identification (initials A, D) and endometrial curettings is a 2.5 x 1.5 x 0.4 cm aggregate of pink-kendrick soft tissue and mucus. The specimen is entirely submitted in A1. TRENTON BOWSER(ASCP) 07/12/2021 9:26 07/14/2021 15:35 [facility] Resident/Lamberto w: Gloria Shelley MD 07/14/2021 15:35 [facility] Performing Lab [facility] 07/14/2021 15:35 [facility] Scanned Images 07/14/2021 15:35 [facility] Tissue ENTIRE ENDOMETRIUM / Unknown 07/07/2021 17:15 EDT 07/11/2021 17:21 EST Trey Torres MD PATHOLOGY ORDERABLES [facility] [address] [place] [address] documented in this encounter Visit Diagnoses Diagnosis Excessive bleeding in the premenopausal period Premenopausal menorrhagia Polyp of cervix uteri Mucous polyp of cervix documented in this encounter Care Teams Independent Sales Representative Relationship Specialty Start Date End Date Amber Ratliff ARNP [address] [place] [address] PCP - General 12/10/16 documented as of this encounter
--- OUTSIDE RECORDS SUMMARY | 2024-07-07 13:35 | XMS_ITS | Clinical Summary ---
Author Organization [facility] Address [facility] [place] [address] Care Team Providers Care Rn Shift Mgr Name Role Phone Justino Lucia MD Primary Care Provider [phone] Allergies No known active allergies Medications Medication Sig Dispensed Refills Start Date End Date Status cholecalciferol, Vitamin D3, 50 mcg (2,000 unit) Capsule Take 1 capsule by mouth Daily. Active albuteroL 90 mcg/actuation HFA Aerosol Inhaler Inhale 2 puffs into the lungs every 4 hours as needed for Wheezing. Use with spacer Active atorvastatin (LIPITOR) 20 mg Tablet Take 1 tablet by mouth daily. 30 tablet 3 02/09/2016 Active meTOPROLOL tartrate (LOPRESSOR) 25 mg Tablet Take 25 mg by mouth 2 times daily. Active furosemide (LASIX) 20 mg Tablet Take 20 mg by mouth daily. Active MYRBETRIQ 25 mg Tablet Sustained Release 24 hr 07/09/2017 Active gabapentin (Neurontin) 300 mg Capsule Take 300 mg by mouth 3 times daily. 09/13/2021 Active omeprazole (PriLOSEC) 40 mg Capsule, Delayed Release(E.C.) Take 40 mg by mouth daily. 11/25/2021 Active psyllium husk (psyllium)Indicat ions:Diarrhea, unspecified type Take 1 packet by mouth daily. 90 packet 3 10/01/2023 Active Additional Information Patient not taking.Reported on 01/17/2024 loperamide (Imodium A-D) 2 mg capsule take 1 capsule by mouth four times a day if needed for diarrhea MAX OF 16 MILLIGRAMS IN 24 HOURS 90 capsule 10/29/2023 Active acetaminophen (Tylenol) 500 mg tablet Take 1,000 mg by mouth every 6 hours as needed for Pain. 11/08/2021 Active semaglutide (Ozempic) 2 mg/dose (8 mg/3 mL) Pen Injector Inject 2 mg subcutaneously once a week. 12 mL 3 05/20/2024 Active Active Problems Problem Noted Date Diagnosed Date NAFLD (nonalcoholic fatty liver disease) 022 Insulin resistance 03/04/2022 History of alcohol abuse 12/14/2021 Hyperlipidemia 12/14/2021 History of colon polyps 12/14/2021 Osteoarthritis of hip 12/14/2021 History of shoulder replacement 12/14/2021 Portal hypertension 12/14/2021 Prediabetes 12/14/2021 Class 3 severe obesity with serious comorbidity and body mass index (BMI) of 50.0 to 59.9 in adult 02/18/2018 Overview (02/18/2018): - Attended [facility] January 2018 - Team meeting presentation 02/20/18: cirrhosis, portal hypertension, recanalization of umbilical artery Frequent PVCs 05/21/2017 Edema of lower extremity 05/21/2017 Epistaxis 05/21/2017 Anxiety 05/21/2017 Depression 05/21/2017 Anemia 05/21/2017 Osteopenia 05/21/2017 PSVT (paroxysmal supraventricular tachycardia) 0 05/21/2017 Cirrhosis 05/21/2017 History of hepatitis C 05/21/2017 Asthma 05/21/2017 Hypertension 05/21/2017 Atypical angina 02/07/2016 Overview (07/19/2017): EKG change and small troponin bump 02/2016 Cath- mild diffuse disease Unclear cause for troponin leak Resolved Problems Problem Noted Date Diagnosed Date Resolved Date CAD (coronary artery disease) 05/21/2017 07/19/2017 Chest tightness or pressure 05/21/2017 07/19/2017 SOB (shortness of breath) 05/21/2017 Fatigue 05/21/2017 12/14/2021 Hypoglycemia 05/21/2017 12/14/2021 Encounters Date Type Department Care Team Description 06/12/2024 Notes [place] [address] Priscilla Gonzalez 05/22/2024 8:30 AM EDT Office Visit [facility] [place] [address] Candy Clifford MD Class 3 severe obesity with serious comorbidity and body mass index (BMI) of 45.0 to 49.9 in adult, unspecified obesity type (Primary Dx); NAFLD (nonalcoholic fatty liver disease); Hyperlipidemia, unspecified hyperlipidemia type; Prediabetes; Insulin resistance; Hypertension, unspecified type 05/21/2024 Travel 05/20/2024 Notes [place] [address] Yesi Ibanez, [facility] 05/20/2024 Refill [facility] [place] [address] Candy Clifford MD 04/12/2024 Refill [facility] [place] [address] Candy Clifford MD from Last 3 Months Immunizations Name Administration Dates Next Due Covid-19 Monovalent (Pfizer Comirnaty purple cap) 12yrs+ (9115-2730) 09/29/2021,12/07/2020,11/09/2020 Family History Medical History Relation Comments Brain Cancer Brother 1 Alcohol Use Disorder Brother 2 Cirrhosis Brother 2 Depression Brother 2 Substance Use Disorder Brother 2 Liver Cancer Brother 4 Hypertension Father Nephrolithiasis Father Nephrolithiasis Mother Asthma Sister 1 Aneurysm Sister 2 Relation Status Comments Brother 1 Brother 2 Alive Brother 3 Alive Brother 4 Father Alive Mother Alive Sister 1 Alive Sister 2 Alive Social History Tobacco Use Types Packs/Day Years Used Date Smoking Tobacco: Former Cigarettes 3 42 Smokeless Tobacco: Never Tobacco Cessation:Counseling Given: Not Answered Alcohol Use Standard Drinks/Week Comments No 0 (1 standard drink = 0.6 oz pur e alcohol) Sex and Gender Information Value Date Recorded Sex Assigned at Not on file Gender Identity Not on file Sexual Orientation Not on file Last Filed Vital Signs Vital Sign Reading Time Taken Comments Blood Pressure 110/86 05/22/2024 8:43 AM EDT Pulse 109 05/22/2024 8:43 AM EDT Temperature 36.6 ??C (97.8 ??F) 06/18/2023 11:05 AM E DT Respiratory Rate 19 06/18/2023 11:07 AM EDT Oxygen Saturation 95% 06/18/2023 12:10 PM EDT Inhaled Oxygen Concentration - - Weight 120.4 kg (265 lb 8 oz) 05/22/2024 8:43 AM EDT Height 157.5 cm (5' 2) 05/22/2024 8:43 AM EDT Body Mass Index 48.56 05/22/2024 8:43 AM EDT Plan of Treatment Upcoming Encounters Date Type Department Care Team (Late st Contact Info) Description 07/22/2024 9:00 AM EST Appointment [place] [phone] Ana Ho MD [facility] [place] [address] 07/22/2024 10:00 AM EST Laboratory Appointment Lab [address] [place] [address] 07/22/2024 11:00 AM EST Office Visit [place] [address] Ana Ho MD [facility] [place] [address] 09/15/2024 10:00 AM EST TH Visit (TeleHealth) [place] [address] Candy Clifford MD [facility] [address] Scheduled Procedures Name Priority Associated Diagnoses Date/Ti me EGD, UPPER GI ENDOSCOPY (WRV U 2.09) Hepatic cirrhosis, unspecified hepatic cirrhosis type, unspecified whether ascites present Health Maintenance Due Date Last Done Comments CT Colonography 1950 FIT DNA 1950 FIT 1950 Sigmoidoscopy 1950 Pneumoccocal Vaccine: 65+ (1 of 2 - PCV) 1957 Tetanus/Diphtheria/Pertussis Vaccines (1 - Tdap) 1970 Breast Cancer Share Decision Needed 1991 Breast Cancer screening 1991 Zoster vaccine (1 of 2) 2001 Advance Directive 2006 Bone Density Scan 2016 Covid-19 Vaccine (4 - 2023-2 5 season) 2024 09/29/2021, 12/07/2020, 11/09/2020 Influenza (Flu) vaccine (1 o f 1 - Influenza standard series) 05/03/2024 Pre-DM monitoring (HgbA1C or FBG) 01/16/2025 01/17/2024, 07/04/2023, 01/01/2023, Additional history exists Colonoscopy 06/05/2032 06/05/2022, 06/05/2022 Colorectal Cancer Screening 06/05/2032 Sigmoidoscopy (10 year) with FIT yearly 06/05/2032 06/05/2022, 06/05/2022 Diabetes Screening (HgbA1C o r Glucose) Discontinued 01/17/2024, 07/04/2023, 01/01/2023, Additional history exists Goals Goal Patient Goal Type Associated Problems Recent Progress Patient-Stated? Author movement Exercise On track(2021 11:16 AM EDT) No Pankaj Mcadams Note: Try gentle movement like chair yoga, t'ai chi and qigong. Health Concrete Pile Driver Operator will send hand-outs. Use resistance bands. Health Concrete Pile Driver Operator will request a set be mailed. Movement [...] opportunity to start with protein (cottage cheese, kenyan yogurt, protein smoothies, chicken or chicken salad [...] for sample meal ideas in the USPS [facility] Keep food log until you are seen by the dieititian. Record everything you eat or drink, include time eaten and any emotional changes that are significant. relaxation/sleep Lifestyle No Pankaj Mcadams Note: Try some meditation/relaxation apps when I wake in the night and can't go back to sleep. Health Concrete Pile Driver Operator will send some to try. Tried apps but don't really like them as I like the quiet when going to sleep. [facility] 04/23 Procedures Procedure Name Priority Date/Time Associated Diagnosis Comments COMPREHENSIVE METABOLIC PANEL Routine 01/17/2024 9:10 AM EDT Hepatic cirrhosis, unspecified hepatic cirrhosis type, unspecified whether ascites present COLONOSCOPY Routine 06/05/2022 10:38 AM EDT from Last 3 Months or Most Recently Relevant to Health Maintenance Results * Comprehensive metabolic panel (non-fasting) (01/17/2024 9:10 AM EDT) Glucose 92 65 - 199 mg/dL [facility] Comment:Diabetes: >=200 mg/d L plus symptoms Blood Urea Nitrogen 11 8 - 18 mg/dL [facility] Creatinine 0.72 0.70 - 1.20 mg/dL [facility] Sodium 144 135 - 145 mmol/L [facility] Potassium 4.2 3.5 - 5.0 mmol/L [facility] Comment: Please note: ??Patients with WBC >100,000 may have falsely elevated Potassium levels. ??For accurate Potassium quantification in these patients send serum separator tube (gold top) for subsequent determinations. ??Contact the Clinical Chemistry Laboratory if there are any questions. Chloride 106 98 - 107 mmol/L [facility] Carbon Dioxide 29 22 - 31 mmol/L [facility] Anion Gap 9 5 - 15 mmol/L [facility] Calcium 8.8 8.5 - 10.5 mg/dL [facility] Protein, Total 6.7 6.1 - 8.0 g/dL [facility] Albumin 3.7 3.2 - 5.2 g/dL [facility] Aspartate Aminotransferase 23 0 - 30 unit/L [facility] Alanine Aminotransferase 14 0 - 30 unit/L [facility] Alkaline Phosphatase 84 35 - 105 unit/L [facility] Bilirubin, Total 1.1 0.2 - 1.3 mg/dL [facility] Est Glomerular Filtration Rate 89 >=60 mL/min/1. 73 m?? [facility] Comment: This patient's estimated GFR was calculated using the 2020 CKD-EPI equation. The estimated GFR can vary from the measured GFR by up to 30% in the absence of rapidly changing kidney function. Assessment of the estimated GFR is not appropriate when creatinine concentrations are rapidly changing. For clinical situations in which a more precise estimate of GFR is necessary, consider alternative methods of GFR estimation such as a 24-hour urine creatinine clearance. Assignment of CKD stage 1-5 for patients with an eGFR near the transition point between stages may be based on clinical assessment of muscle mass and symptoms in addition to eGFR. Blood 01/17/2024 9:10 AM EDT 01/17/2024 9:15 AM EDT Narrative Resulting Agency Comment Spec In Lab Ana Ho MD CHEMISTRY ORDERABLES [facility] [place] [address] * COLONOSCOPY (06/05/2022 10:38 AM EDT) COLONOSCOPY [facility] Endoscopy Procedure Date: 06/05/2022 10:38 AM ? Patient Name: Telma Richter ? Date of : 1950 ? Age: 72 ? Order #: [id number] ? Instrument Name: [id number] ? Procedure: ? Colonoscopy Indications: ? High risk colon cancer ? surveillance: Personal history of ? colonic polyps Providers: ? Leo Rojas, Tracey Kumar, Lakisha Mi ? Matthew Referring MD: ?Justino Lucia Medicines: ? Monitored Anesthesia Care Complications: ? No immediate complications. Procedure: ? Pre-Anesthesia Assessment: ? - Prior to the procedure, a History ? and Physical was performed, and ? patient medications and allergies ? were reviewed. The patient is ? competent. The risks and benefits ? of the procedure and the sedation ? options and risks were discussed ? with the patient. All questions ? were answered and informed consent ? was obtained. Patient ? identification and proposed ? procedure were verified by the ? physician and the nurse in the ? endoscopy suite. Mental Status ? Examination: alert and oriented. ? Airway Examination: normal ? oropharyngeal airway and neck ? mobility. Respiratory Examination: ? clear to auscultation. CV ? Examination: normal. Prophylactic ? Antibiotics: The patient does not ? require prophylactic antibiotics. ? Prior Anticoagulants: The patient ? has taken no anticoagulant or ? antiplatelet agents. ASA Grade ? Assessment: III - A patient with ? severe systemic disease. After ? reviewing the risks and benefits, ? the patient was deemed in ? satisfactory condition to undergo ? the procedure. The anesthesia plan ? was to use monitored anesthesia ? care (MAC). Immediately prior to ? administration of medications, the ? patient was re-assessed for ? adequacy to receive sedatives. The ? heart rate, respiratory rate, ? oxygen saturations, blood pressure, ? adequacy of pulmonary ventilation, ? and response to care were monitored ? throughout the procedure. The ? physical status of the patient was ? re-assessed after the procedure. ? The procedure, indications, ? benefits, risks and alternatives ? were explained to the patient. ? Specifically discussed were ? potential complications including, ? but not limited to, bleeding, ? perforation, infection, missing a ? cancer, and adverse medication ? reactions. The patient was placed ? in the left lateral decubitus ? position, and a digital rectal exam ? was performed. The Colonoscope was ? inserted in the anus and under ? direct visualization, advanced to ? the terminal ileum, with ? identification of the appendiceal ? orifice and IC valve. Careful ? inspection was made as the ? colonoscope was withdrawn. The ? colonoscopy was technically ? difficult and complex due to ? restricted mobility of the colon. ? Successful completion of the ? procedure was aided by ? straightening and shortening the ? scope to obtain bowel loop ? reduction and applying abdominal ? pressure with water exchange ? technique and avoiding excessive ? torsion. The patient tolerated the ? procedure well. The quality of the ? bowel preparation was evaluated ? using the BBPS (Jackpot Bowel ? Preparation Scale) with scores of: ? Right Colon = 3, Transverse Colon = ? 3 and Left Colon = 3 (entire mucosa ? seen well with no residual ? staining, small fragments of stool ? or opaque liquid). The total BBPS ? score equals 9. ? Findings: ? The perianal and digital rectal examinations were ? normal. ? A 3 mm polyp was found in the transverse colon. The ? polyp was sessile. The polyp was removed with a cold ? snare. Resection and retrieval were complete. ? A small area of mucosal defect in the transverse ? colon was seen without evidence of perforation likely ? related to scope trauma. ? The terminal ileum appeared normal. ? Unable to retroflex despite multiple attempts, so ? careful 360 degree withdrawal was performed. ? Moderate Sedation: ? Not applicable - See Anesthesia documentation Impression: ?- One 3 mm polyp in the transverse ? colon, removed with a cold snare. ? Resected and retrieved. ? - The examined portion of the ileum ? was normal. Recommendation: ?- Await pathology results. ? - Discharge patient to home (with ? escort). ? - Return to referring physician as ? previously scheduled. ? - Per Multi-Society Task Force ? of Colorectal Cancer (MSTF) ? recommendations, no further ? colonoscopies as her next intended ? interval would be at age >75 ? considering her medical ? comorbidities. ? Attending Participation: ? I personally performed the entire procedure. ? Leo Rojas, 06/05/2022 11:19:55 AM Number of Addenda: 0 Note Initiated On: 06/05/2022 10:38 AM PROVATION 06/05/2022 10:3 8 AM EDT Justino Lucia MD GENERAL SURGICAL ORD ERABLES PROVATION from Last 3 Months or Most Recently Relevant to Health Maintenance Advance Directives * Full Code (Latest Code Status on File) Date Activated Date Inactivated Comments 02/07/2016 5:58 PM 02/08/2016 5:30 PM Question Answer Comments Does patient have capacity to make decision: Yes * Full Code Date Activated Date Inactivated Comments 02/07/2016 5:52 PM 02/07/2016 5:58 PM Question Answer Comments Does patient have capacity to make decision: Yes Care Teams Rn Shift Mgr Relationship Specialty Start Date End Date Justino Lucia MD PCP - General Family Medicine 10/04/21
--- OUTSIDE RECORDS SUMMARY | 2024-07-07 13:35 | XMS_ITS | Encounter Summary ---
Author Organization [facility] [place] [address] Care Team Providers Care Glove Boarder Name Role Phone Justino Lucia MD Primary Care Provider [phone] Encounter Details Date Type Department Care Team (Latest Contact Info) Description 05/21/2024 Travel Social History Tobacco Use Types Packs/Day Years [...] as of this encounter Plan of Treatment Upcoming Encounters Date Type Department Care Team (Late st Contact Info) Description 07/22/2024 9:00 AM EST Appointment [place] [phone] Ana Ho MD [facility] [address] 07/22/2024 10:00 AM EST Laboratory Appointment Lab [address] [place] [phone] 07/22/2024 11:00 AM EST Office Visit [place] [phone] Ana Ho MD [facility] [address] 09/15/2024 10:00 AM EST TH Visit (TeleHealth) Weight and Wellness at [facility] [place] [address] Candy Clifford MD [facility] DR [facility] [place] [address] Scheduled Procedures Name Priority Associated Diagnoses Date/Ti me EGD, UPPER GI ENDOSCOPY (WRV U 2.09) Hepatic cirrhosis, unspecified hepatic cirrhosis type, unspecified whether ascites present documented as of this encounter Goals Goal Patient Goal Type Associated Problems Recent Progress Patient-Stated? Author movement Exercise On track(2021 11:16 AM EDT) No Pankaj Mcadams Note: Try gentle movement like chair yoga, t'ai chi and qigong. Health Child Welfare Counselor will send hand-outs. Use resistance bands. Health Child Welfare Counselor will request a set be mailed. Movement [...] opportunity to start with protein (cottage cheese, colombian yogurt, protein smoothies, chicken or chicken salad [...] for sample meal ideas in the USPS [facility] Keep food log until you are seen by the dieititian. Record everything you eat or drink, include time eaten and any emotional changes that are significant. relaxation/sleep Lifestyle Pankaj Russ Note: Try some meditation/relaxation apps when I wake in the night and can't go back to sleep. Health Child Welfare Counselor will send some to try. Tried apps but don't really like them as I like the quiet when going to sleep. [facility] 04/23 documented as of this encounter Visit Diagnoses Not on filedocumented in this encounter Care Teams Glove Boarder Relationship Specialty Start Date End Date Justino Lucia MD PCP - General Family Medicine 10/04/21 documented as of this encounter
--- OUTSIDE RECORDS SUMMARY | 2024-07-07 13:35 | XMS_ITS | Encounter Summary ---
Author Organization [facility] Address [address] [place] [address] Care Team Providers Care Assistant Reading Teacher Name Role Phone Amber Ratliff Primary Care Provider [phone] Encounter Details Date Type Department Care Team ([facility] st Contact Info) Description 08/16/2017 Results Only [facility] [phone] Clayton Bhatia DO [address] [place], [place] [id number] Social History Tobacco Use Types Packs/Day Years Used Date Smoking Tobacco: Never Assessed Sex and Gender Information Value Date Recorded Sex Assigned at Not on file Gender Identity Not on file Sexual Orientation Not on file documented as of this encounter Plan of Treatment Not on file documented as of this encounter Procedures Procedure Name Priority Date/Time Associated Diagnosis Comments SURGICAL PATHOLOGY Routine 08/16/2017 9:40 EST documented in this encounter Results * SURGICAL PATHOLOGY (08/16/2017 9:40 EST) Pathology Report: SURGICAL PATHOLOGY REPORT Reports generated via electronic interface contain original data; however they are lacking the format of the original report. Caution should be taken when reading/interpreti ng unformatted reports. Name: ? TELMA RICHTER ? Accession #: ? [id number] ? : ? 1950 (Age: 67) ??F ? Collect Date: ? 08/16/2017 ? Location: ? [facility] ? Receive Date: ? 08/19/2017 ? Provider: CLAYTON BHATIA DO Copy to: ? Final Pathologic Diagnosis: A. SMALL INTESTINE, DUODENUM, 2ND PORTION, BIOPSY: - Enteric mucosa with focal intraepithelial lymphocytosis, otherwise unremarkable. See comment. B. STOMACH, ANTRUM, BIOPSY: - Antral mucosa with reactive (chemical) gastropathy. - No Helicobacter pylori identified on H&E. C. STOMACH, GREATER CURVE, BIOPSY: - Congested oxyntic mucosa with reactive (chemical) gastropathy. - No Helicobacter pylori identified on H&E. Comment: A: Few villi at the tips have an increased number of lymphocytes. There is no villous blunting or expansion of the lamina propria. Findings are mild and not entirely specific. Similar features can be seen in the context of medication/drug effect, or gluten insensitivity, amongst others. Document reviewed and electronically signed by: YAMEL MOON MD Report ??Date: 08/22/2017 10:46 By the signature above, the attending physician certifies that he/she has personally conducted a gross and/or microscopic examination of the described specimens and rendered or confirmed the above diagnosis. Specimen(s) Received: A. ??2nd portion of duodenum B. ??Gastric antrum C. ??Gastric greater curvature Clinical History: G(+) stool Gross Description: A. ?Received in formalin labelled with proper patient identification (initials A, D) and 2nd portion of duodenum are three pink-kendrick tissues (each averaging 0.2 x 0.2 x 0.2 cm). Entirely submitted in A1. B. ?Received in formalin labelled with proper patient identification (initials A, D) and gastric antrum is a single pink-kendrick tissue fragment (0.6 x 0.2 x 0.2 cm). Submitted intact in B1. C. ?Received in formalin labelled with proper patient identification (initials A, D) and gastric greater curvature is a single pink-kendrick tissue fragment (0.3 x 0.2 x 0.2 cm). Submitted intact in C1. TRENTON Gongora (ASCP) 08/20/2017 10:55 AM End of Report [facility] 08/16/2017 9:40 EST 08/19/2017 9:40 EST Clayton Bhatia DO PATHOLOGY ORDERABLES [facility] [address] [place] [address] documented in this encounter Visit Diagnoses Not on filedocumented in this encounter Care Teams Assistant Reading Teacher Relationship Specialty Start Date End Date Amber Ratliff ARNP [address] [place] [address] PCP - General 12/10/16 documented as of this encounter
--- OUTSIDE RECORDS SUMMARY | 2024-07-07 13:35 | XMS_ITS | Encounter Summary ---
Author Organization On License Of [facility] Address [facility] [address] Care Team Providers Care Coin Dealer Name Role Phone Justino Lucia MD Primary Care Provider [phone] Encounter Details Date Type Department Care Team (Late st Contact Info) Description 06/12/2024 Notes Only Care Management [facility] [place] [address] Priscilla Gonzalez Social History Tobacco Use Types Packs/Day Years [...] as of this encounter Progress Notes * Priscilla Gonzalez - 06/12/2024 10:05 AM EDT I sent a letter and the re-enrollment application for assistance with Ozempic to the patient for them to complete, sign and return to the Medication Assistance Program. This is for the 2024 enrollment year. I sent the application for assistance with Ozempic to Dr. Clifford for their signature and prescription. I will follow through with the remainder of the application once everything is returned to me. documented in this encounter Plan of Treatment Upcoming Encounters Date Type Department Care Team (Late st Contact Info) Description 07/22/2024 9:00 AM [place] [address] Ana Ho MD [facility] [place] [address] 07/22/2024 10:00 AM EST Laboratory Appointment Lab [address] [place] [address] 07/22/2024 11:00 AM EST Office [place] [phone] Ana Ho MD [facility] [place] [address] 09/15/2024 10:00 AM EST TH Visit (TeleHealth) [place] [address] Candy Clifford MD [facility] DR [facility] [address] Scheduled Procedures Name Priority Associated Diagnoses Date/Ti me EGD, UPPER GI ENDOSCOPY (WRV U 2.09) Hepatic cirrhosis, unspecified hepatic cirrhosis type, unspecified whether ascites present documented as of this encounter Goals Goal Patient Goal Type Associated Problems Recent Progress Patient-Stated? Author movement Exercise On track(2021 11:16 AM EDT) No Pankaj Mcadams Note: Try gentle movement like chair yoga, t'ai chi and qigong. Health Supervisor Pyrotechnic Loading will send hand-outs. Use resistance bands. Health Supervisor Pyrotechnic Loading will request a set be mailed. Movement [...] opportunity to start with protein (cottage cheese, spanish yogurt, protein smoothies, chicken or chicken salad [...] for sample meal ideas in the USPS [facility] Keep food log until you are seen by the dieititian. Record everything you eat or drink, include time eaten and any emotional changes that are significant. relaxation/sleep Lifestyle No Pankaj Mcadams Note: Try some meditation/relaxation apps when I wake in the night and can't go back to sleep. Health Supervisor Pyrotechnic Loading will send some to try. Tried apps but don't really like them as I like the quiet when going to sleep. [facility] 04/23 documented as of this encounter Visit Diagnoses Not on filedocumented in this encounter Care Teams Coin Dealer Relationship Specialty Start Date End Date Justino Lucia MD PCP - General Family Medicine 10/04/21 documented as of this encounter
--- OUTSIDE RECORDS SUMMARY | 2024-07-07 13:35 | XMS_ITS | Encounter Summary ---
Author Organization [facility] Address [address] [place] [address] Care Team Providers Care Site Manager Name Role Phone Amber Ratliff MAHSA Primary Care Provider [phone] Encounter Details Date Type Department Care Team (Late st Contact Info) Description 04/11/2021 Lab Requisition [facility] - [address] [id number] Outr Resulting Lab, Provider Social History Tobacco Use Types Packs/Day Years [...] Procedure Name Priority Date/Time Associated Diagnosis Comments ZZCOVID-19 TEST [facility] PCR Today 04/10/2021 17:00 EDT COVID-19 TESTING Routine 04/10/2021 17:0 0 EDT documented in this encounter Results * COVID-19 TEST [facility] PCR (04/10/2021 17:00 EDT) Swab ENTIRE NASOPHARYNX / Unknown 04/10/2021 17:00 EDT 04/11/2021 15:46 EDT Provider Outr Resulting Lab MICROBIOLOGY - GENERAL ORDERABLES [facility] [address] [place] [address] * COVID-19 TESTING (04/10/2021 17:00 EDT) COVID-19 rt-PCR Result Negative Negative 04/12/2021 14:23 EDT [facility] Comment: This test has not been FDA cleared or approved. This test has been authorized by FDA under an EUA for use by authorized laboratories. This test has been authorized only for detection of nucleic acid from 2019-nCoV, not for any other viruses or pathogens. This test is only authorized for the duration of the declaration that circumstances exist justifying the authorization of emergency use of in vitro diagnostic tests for detection and/or diagnosis of 2019-nCoV under section 564(b)(1) of Act, 21 U.S.C ?? 360bbb-3(b) (1), unless the authorization is terminated or revoked sooner. Negative results do not preclude 2019-nCoV infection and should not be used as the sole basis for treatment or other patient management decisions. Negative results must be combined with clinical observations, patient history, and epidemiological information. Performed on the BleepBleepsher Fusion instrument Performing Lab [facility] Lab 04/12/2021 14:23 EDT [facility] Swab 04/10/2021 17:0 0 EDT 04/11/2021 15:46 EDT Provider Outr Resulting Lab MICROBIOLOGY - GENERAL ORDERABLES [facility] [address] [place] [address] documented in this encounter Visit Diagnoses Not on filedocumented in this encounter Care Teams Site Manager Relationship Specialty Start Date End Date Amber Ratliff ARNP [address] [place] [address] PCP - General 12/10/16 documented as of this encounter
--- OUTSIDE RECORDS SUMMARY | 2024-07-07 13:35 | XMS_ITS | Referral Summary ---
Author Organization [facility] Address [address] [place] [address] Care Team Providers Care Dining Services Director Name Role Phone Amber Ratliff MAHSA Primary Care Provider [phone] Social History Tobacco Use Types Packs/Day Years Used Date Smoking Tobacco: Never Assessed Interpersonal Safety Answer Date Record ed Physically Hurt Never 04/04/2020 Verbally Threaten Not on file 04/04/2020 Sex and Gender Information Value Date Recorded Sex Assigned at Not on file Gender Identity Not on file Sexual Orientation Not on file Plan of Treatment Not on file Care Teams Dining Services Director Relationship Specialty Start Date End Date Amber Ratliff ARNP [address] [place] [address] PCP - General 12/10/16
--- OUTSIDE RECORDS SUMMARY | 2024-07-07 13:35 | XMS_ITS | Encounter Summary ---
Author Organization [facility] Address [facility] [place] [address] Care Team Providers Care School Cook Name Role Phone Justino Lucia MD Primary Care Provider [phone] Encounter Details Date Type Department Care Team (Late st Contact Info) Description 05/22/2024 8:30 AM EDT Office Visit [place] [address] Candy Clifford MD [facility] DR [facility] [place] [address] Class 3 severe obesity with serious comorbidity and body mass index (BMI) of 45.0 to 49.9 in adult, unspecified obesity type (Primary Dx); NAFLD (nonalcoholic fatty liver disease); Hyperlipidemia, unspecified hyperlipidemia type; Prediabetes; Insulin resistance; Hypertension, unspecified type Social History Tobacco Use Types Packs/Day Years Used Date Smoking Tobacco: Former Cigarettes 3 42 Smokeless Tobacco: Never Alcohol Use Standard Drinks/Week Comments No 0 (1 standard drink = 0.6 oz pur e alcohol) Sex and Gender Information Value Date Recorded Sex Assigned at Not on file Gender Identity Not on file Sexual Orientation Not on file documented as of this encounter Last Filed Vital Signs Vital Sign Reading Time Taken Comments Blood Pressure 110/86 05/22/2024 8:43 AM EDT Pulse 109 05/22/2024 8:43 AM EDT Temperature - - Respiratory Rate - - Oxygen Saturation - - Inhaled Oxygen Concentration - - Weight 120.4 kg (265 lb 8 oz) 05/22/2024 8:43 AM EDT Height 157.5 cm (5' 2) 05/22/2024 8:43 AM EDT Body Mass Index 48.56 05/22/2024 8:43 AM EDT documented in this encounter Progress Notes * Candy Clifford MD - 05/22/2024 8:30 AM EDTSummary: 11th visit with MD [facility] [place] Patient Name: Telma Richter Date of : 1950 Age: 74 y.o. Justino Lucia MD Thank you for referring [facility] the [facility]. I saw her for a follow-upvisit today, 05/22/24. Please see changes to care as documented in the assessment and plan. CHIEF COMPLAINT: F/u for treatment of WHO Class 3 / EOSS Stage 2 Obesity defined by initial BMI and comorbidities:HTN, Hyperlipidemia and Vitamin D deficiency. GERD. OA. This is Visit #11 [facility] visit for this 74 y.o. patient. Weight gain due to: Unclear - sits at home; notes gaining weight when she moved here from [place] to take care of her dad about 10 years ago. Multiple deaths in the family in the same time frame. Initial weight 01/18/22: 335 lbs (33.5 lbs, 10%) 03/01/2022, 335 lbs (no change) 04/20/2022, 328.5 lbs (-6.5 lbs) 06/25/2022, 315 lbs (-13.5 lbs, -20 lbs) 09/25/2022, 305 lbs (- 10 lbs, - 30 lbs) 12/05/2022, 300 lbs (- 5 lbs, - 35 lbs >10%) 01/25/2023, 295 lbs (- 5 lbs, - 40 lbs = 12% TBW lost) 04/17/2023, 287 lbs (- 8 lbs, - 48 lbs) 07/23/2023, 288 lbs (+ 1 lbs, - 47 lbs) 11/26/2023, 288 lbs (- 0 lbs) 05/22/2024, 265 lbs (-23 lbs, - 70 lbs) [facility] Team: Lacey Martino RD and Pankaj Mcadams, Health Mixing And Molding Machine Operator HPI Doing much better, feeling much better. Has new PCP - nice neelima. Trying to walk independently. [place] Met with GI, will have yearly fibroscan. PILLARS Stress - doing ok - daughter still with me but learning to deal with it - not much I can do about it Sleep - sometimes ok, sometimes not - a lot of weird dreams lately Movement - walking more with cane, trying without it too Nutrition - Not eating much - not as many eggs More junk food - chips, rice crispy treats, cakes I do eat healthy too - eggs, pasta Hardly ever eat bread - I did have a sandwich the other day - bologna Drinking - juice -not a lot, water, was drinking a lot of iced coffee; occasional cappuccino AOM: Currently taking: semaglutide 2 mg AOM HX: Metformin XR - did not tolerate Ozempic 2 mg - did well Medication C/I: GB? S/p CCY Any h/o pancreatitis? NO Any h/o kidney stones? NO Any h/o or FHx of thyroid CA (MTC?) NO Any h/o kidney disease/failure? NO Any h/o glaucoma? NO Gynecologic: using/taking reliable contraception? Menopause COMORBIDITIES ADDRESSED: SHANIQUA - no HTN - on multiple meds HL - on statin FLD - HCV cirrhosis; ? FLD Diabetes spectrum - prediabetes, IR Obesogenic meds: metoprolol, gabapentin REVIEW OF LABS/DIAGNOSIS SINCE LAST VISIT Liver Fibrosis Score (Fib 4) was 2.2 at 05/22/2024 9:23 AM Risk of Fibrosis Low Intermediate High NAFLD Less than 1.3 1.3-2.67 Greater than 2.67 Hepatitis C Less than 1.45 1.45-3.25 Greater than 3.25 Computed LUCAS Insulin Resistance Calculation Score unavailable. One or more values for this score either were not found within the given timeframe or did not fit some other criterion. [x] I reviewed past / interim records including notes and labs. ONGOING INTERVENTIONS (Topics discussed today in BOLD): For specific behavioral interventions, see goals Nutrition: specific recommendations per RD Behavior: NO CONCERNS Activity: Provided resistance band and booklet-advancing Barriers: []needs cardiac eval []injury/pain preventing activity right now Stress Management:no concerns Sleep: no concerns Self-monitoring: Food log Pathway: [x]Individual []HLP []Surgery []Culinary []ACT []Monthly Lifestyle Classes Discussion 05/22/24: Current pillars reviewed. Has lost another 20+ lbs! Coming for labs and fibroscan in jul, added labs to this. Cont ozempic 2 mg through [facility]. Cont f/u. 01/18/2022 4:00 PM [facility] PATHWAY - ADULT Obesity Medicine Activate Goals movement Try gentle movement like chair yoga, t'ai chi and qigong. Health Mixing And Molding Machine Operator will send hand-outs. Use resistance bands. Health Mixing And Molding Machine Operator will request a set be mailed. Movement Look around town, [employer] center, gyms, for a class to participate in, bone builders or gentle stretching. Nutrition Nutrition Goals updated today: 12/11/22 TF 1. Focus on reaching adequate protein intake - aim for 60-80 grams (handout attached in after visitsummary) 2. Consider the 3 eating events per day to be an opportunity to start with protein (cottage cheese,angolan yogurt, protein smoothies, chicken or chicken salad [...] for [facility] Keep food log until you are seen by the dieititian. Record everything you eat or drink, include time eaten and any emotional changes that are significant. relaxation/sleep Try some meditation/relaxation apps when I wake in the night and can't go back to sleep. Health Mixing And Molding Machine Operator will send some to try. Tried apps but don't really like them as I like the quiet when going to sleep. [facility] 04/23 VITAL SIGNS: Vitals: 05/22/24 0843 BP: 110/86 Pulse: (!) 109 Weight: 120.4 kg (265 lb 8 oz) Height: 157.5 cm (5' 2) Body mass index is 48.56 kg/m??. PHYSICAL EXAM: Gen: Alert and appropriate, NAD. LABS: Lab Results Component Value Date WBC 4.2 01/17/2024 RBC 4.30 01/17/2024 HGB 12.7 01/17/2024 HCT 39.0 01/17/2024 MCV 90.7 01/17/2024 MCH 29.5 01/17/2024 MCHC 32.6 01/17/2024 PLATELET 204 01/17/2024 RDWCV 13.7 01/17/2024 Lab Results Component Value Date NA 144 01/17/2024 K 4.2 01/17/2024 CL 106 01/17/2024 CO2 29 01/17/2024 BUN 11 01/17/2024 CREATININE 0.72 01/17/2024 GLUCOSE 92 01/17/2024 CALCIUM 8.8 01/17/2024 ESTGFR 89 01/17/2024 Lab Results Component Value Date ALT 14 01/17/2024 AST 23 01/17/2024 ALKPHOS 84 01/17/2024 BILITOT 1.1 01/17/2024 BILIDIR 0.3 02/07/2016 ALBUMIN 3.7 01/17/2024 PROT 6.7 01/17/2024 Lab Results Component Value Date CHLPL 118 01/01/2023 HDL 45 01/01/2023 CHOLHDL 2.6 01/01/2023 TRIG 75 01/01/2023 LDLCHOL 58 01/01/2023 Lab Results Component Value Date HA1C 4.8 01/01/2023 HA1C 5.5 01/25/2022 Lab Results Component Value Date TSH 1.28 01/01/2023 Lab Results Component Value Date LABINSU 25.2 (H) 01/01/2023 No results found for: GLUCFASTING Lab Results Component Value Date [id number] 553 01/01/2023 Vitamin D Total 25 OH (ng/mL) Date Value Status 01/01/2023 43 Final No results found for: URICACID ASSESSMENT AND PLAN: Telma Richter was seen in follow up today for ongoing Metabolically unhealthy obesity, not yet at treatment goal [x] with improvement [] without change. Goals and treatment options were discussed. Continue medical management and lifestyle changes. For specific behavioral interventions, see goals/AVS FACTORS ASSOCIATED WITH OBESITY Risk Stratification: probable insulin resistance Obesogenic meds: Antihypertensive, Neuropathic pain control Plan: No change at this time Metabolic Co-morbidities addressed with weight loss: Dyslipidemia, Hypertension, Prediabetes and Insulin Resistance w/o elevated blood sugars - based on: elevated fasting glucose Other Co-Morbidities impacted by weight loss:HTN, Hyperlipidemia and Vitamin D deficiency. GERD. OA. Referrals pending: None AOM management today: Ozempic 2 mg Diagnoses and all orders for this visit: Class 3 severe obesity with serious comorbidity and body mass index (BMI) of 45.0 to 49.9 in adult,unspecified obesity type - Hemoglobin A1c; Future - Lipid Panel (Reflex Direct LDL); Future - Vitamin B12; Future - Vitamin D, 25-Hydroxy; Future - TSH; Future - Ferritin; Future NAFLD (nonalcoholic fatty liver disease) - Ferritin; Future Hyperlipidemia, unspecified hyperlipidemia type - Lipid Panel (Reflex Direct LDL); Future Prediabetes - Hemoglobin A1c; Future Insulin resistance - Hemoglobin A1c; Future Hypertension, unspecified type Orders Placed This Encounter Procedures Hemoglobin A1c Lipid Panel (Reflex Direct LDL) Vitamin B12 Vitamin D, 25-Hydroxy TSH Ferritin Return in about 3 months (around 08/21/2024) for In person or Zoom, With me. 1 min chart review 25 min [id number] Visit time 5 min Documentation time I spent time as above caring for this patient today; reviewing labs, writing prescriptions, documenting visit, examining the patient, arranging other specialty care, counseling in diet and/or exercise and discussion of treatment options in the care of obesity. documented in this encounter Plan of Treatment Upcoming Encounters Date Type Department Care Team (Late st Contact Info) Description 07/22/2024 9:00 AM EST [place] [address] Ana Ho MD [facility] [place] [address] 07/22/2024 10:00 AM EST Laboratory Appointment Lab [address] [place] [address] 07/22/2024 11:00 AM EST Office [place] [address] Ana Ho MD [facility] [place] [address] 09/15/2024 10:00 AM EST TH Visit (TeleHealth) [place] [address] Candy Clifford MD [facility] DR [facility] [place] [address] Scheduled Orders Name Type Priority Associated Diagnoses Orde r Schedule Hemoglobin A1c Lab Routine Prediabetes Insulin resistance Class 3 severe obesity with serious comorbidity and body mass index (BMI) of 45.0 to 49.9 in adult, unspecified obesity type Expected: 05/22/2024 (Approximate), Expires: 05/22/2025 Lipid Panel (Reflex Direct LDL) Lab Routine Hyperlipidemia, unspecified hyperlipidemia type Class 3 severe obesity with serious comorbidity and body mass index (BMI) of 45.0 to 49.9 in adult, unspecified obesity type Expected: 05/22/2024 (Approximate), Expires: 05/22/2025 Vitamin B12 Lab Routine Class 3 severe obesity with serious comorbidity and body mass index (BMI) of 45.0 to 49.9 in adult, unspecified obesity type Expected: 05/22/2024 (Approximate), Expires: 05/22/2025 Vitamin D, 25-Hydroxy Lab Routine Class 3 severe obesity with serious comorbidity and body mass index (BMI) of 45.0 to 49.9 in adult, unspecified obesity type Expected: 05/22/2024 (Approximate), Expires: 05/22/2025 TSH Lab Routine Class 3 severe obesity with serious comorbidity and body mass index (BMI) of 45.0 to 49.9 in adult, unspecified obesity type Expected: 05/22/2024 (Approximate), Expires: 05/22/2025 Ferritin Lab Routine NAFLD (nonalcoholic fatty liver disease) Class 3 severe obesity with serious comorbidity and body mass index (BMI) of 45.0 to 49.9 in adult, unspecified obesity type Expected: 05/22/2024, Expires: 05/22/2025 Scheduled Procedures Name Priority Associated Diagnoses Date/Ti me EGD, UPPER GI ENDOSCOPY (WRV U 2.09) Hepatic cirrhosis, unspecified hepatic cirrhosis type, unspecified whether ascites present documented as of this encounter Goals Goal Patient Goal Type Associated Problems Recent Progress Patient-Stated? Author movement Exercise On track(2021 11:16 AM EDT) No Pankaj Mcadams Note: Try gentle movement like chair yoga, t'ai chi and qigong. Health Mixing And Molding Machine Operator will send hand-outs. Use resistance bands. Health Mixing And Molding Machine Operator will request a set be mailed. Movement Exercise On track(2021 11:16 AM EDT) No Pankaj Mcadams Note: Look around town, senior center, gyms, for a class to participate in, bone builders or gentle stretching. Nutrition Lifestyle No Candy Clifofrd MD Note: Nutrition Goals updated today: 12/11/22 TF 1. Focus on reaching adequate protein intake - aim for 60-80 grams (handout attached in after visit summary) 2. Consider the 3 eating events per day to be an opportunity to start with protein (cottage cheese, angolan yogurt, protein smoothies, chicken or chicken salad [...] for sample meal ideas in the USPS [facility] Keep food log until you are seen by the dieititian. Record everything you eat or drink, include time eaten and any emotional changes that are significant. relaxation/sleep Lifestyle No Pankaj Mcadams Note: Try some meditation/relaxation apps when I wake in the night and can't go back to sleep. Health Mixing And Molding Machine Operator will send some to try. Tried apps but don't really like them as I like the quiet when going to sleep. [facility] 04/23 documented as of this encounter Visit Diagnoses Diagnosis Class 3 severe obesity with serious comorbidity and body mass index (BMI) of 45.0 to 49.9 in adult, unspecified obesity type- Primary NAFLD (nonalcoholic fatty liver disease) Other chronic nonalcoholic liver disease Hyperlipidemia, unspecified hyperlipidemia type Prediabetes Other abnormal glucose Insulin resistance Dysmetabolic Syndrome X Hypertension, unspecified type documented in this encounter Care Teams School Cook Relationship Specialty Start Date End Date Justino Lucia MD PCP - General Family Medicine 10/04/21 documented as of this encounter
--- OUTSIDE RECORDS SUMMARY | 2024-07-07 13:35 | XMS_ITS | Encounter Summary ---
Author Organization [facility] [place] [address] Care Team Providers Care Manager Reliability Name Role Phone Justino Lucia MD Primary Care Provider [phone] Reason for Visit * Reason Onset Date Comments Medication Refill 05/20/2024 Encounter Details Date Type Department Care Team (Late st Contact Info) Description 05/20/2024 Refill [place] [phone] Candy Clifford MD [facility] DR [facility] [address] Social History Tobacco Use Types Packs/Day Years [...] 07/22/2024 9:00 AM EST Appointment [place] [phone] Ana Ho MD [facility] [place] [address] 07/22/2024 10:00 AM EST Laboratory Appointment Lab [address] [place] [address] 07/22/2024 11:00 AM EST Office Visit [place] [address] Ana Ho MD [facility] DR GASTROENTEROLOGY [place], [place] [address] 09/15/2024 10:00 AM EST TH Visit (TeleHealth) [place] [address] Candy Clifford MD [facility] DR [facility] [address] Scheduled Procedures Name Priority Associated Diagnoses Date/Ti me EGD, UPPER GI ENDOSCOPY (WRV U 2.09) Hepatic cirrhosis, unspecified hepatic cirrhosis type, unspecified whether ascites present documented as of this encounter Goals Goal Patient Goal Type Associated Problems Recent Progress Patient-Stated? Author movement Exercise On track(2021 11:16 AM EDT) No Pankaj Mcadams Note: Try gentle movement like chair yoga, t'ai chi and qigong. Health Orthotic Aide will send hand-outs. Use resistance bands. Health Orthotic Aide will request a set be mailed. Movement [...] opportunity to start with protein (cottage cheese, mohawk yogurt, protein smoothies, chicken or chicken salad [...] for sample meal ideas in the USPS [facility] Keep food log until you are seen by the dieititian. Record everything you eat or drink, include time eaten and any emotional changes that are significant. relaxation/sleep Lifestyle No Pankaj Mcadams Note: Try some meditation/relaxation apps when I wake in the night and can't go back to sleep. Health Orthotic Aide will send some to try. Tried apps but don't really like them as I like the quiet when going to sleep. [facility] 04/23 documented as of this encounter Visit Diagnoses Not on filedocumented in this encounter Care Teams Manager Reliability Relationship Specialty Start Date End Date Justino Lucia MD PCP - General Family Medicine 10/04/21 documented as of this encounter
--- OUTSIDE RECORDS SUMMARY | 2024-07-07 13:35 | XMS_ITS | Encounter Summary ---
Author Organization [facility] Address [address] [place] [address] Care Team Providers Care Data Analysis Manager Name Role Phone Unknown, Provider Primary Care Provider Unava ilable Encounter Details Date Type Department Care Team (Latest Contact Info) Description 12/04/2016 12:51 EDT - 12/04/2016 23:59 EDT Hospital Encounter [address] [address] Unknown, ProviderMD Discharge Disposition: Home or Self Care Social History Tobacco Use Types Packs/Day Years Used Date Smoking Tobacco: Never Assessed Sex and Gender Information Value Date Recorded Sex Assigned at Not on file Gender Identity Not on file Sexual Orientation Not on file documented as of this encounter Discharge Disposition Disposition Code Departure Means Destination Home or Self Alf documented in this encounter Plan of Treatment Not on file documented as of this encounter Visit Diagnoses Not on filedocumented in this encounter Care Teams Data Analysis Manager Relationship Specialty Start Date End Date Unknown, ProviderMD PCP - General 03/29/16 12/09/16 documented as of this encounter
--- OUTSIDE RECORDS SUMMARY | 2024-07-07 13:35 | XMS_ITS | Encounter Summary ---
Author Organization [facility] Address [address] [place] [address] Care Team Providers Care Brick Off Bearer Name Role Phone Amber Ratliff Primary Care Provider [phone] Encounter Details Date Type Department Care Team ([facility] st Contact Info) Description 05/09/2018 Results Only [facility] [phone] Clayton Bhatia DO [address] [place], [place] [id number] Social History Tobacco Use Types Packs/Day Years Used Date Smoking Tobacco: Never Assessed Sex and Gender Information Value Date Recorded Sex Assigned at Not on file Gender Identity Not on file Sexual Orientation Not on file documented as of this encounter Plan of Treatment Not on file documented as of this encounter Procedures Procedure Name Priority Date/Time Associated Diagnosis Comments SURGICAL PATHOLOGY Routine 05/09/2018 16 :44 EDT documented in this encounter Results * SURGICAL PATHOLOGY (05/09/2018 16:44 EDT) Pathology Report: SURGICAL PATHOLOGY REPORT Reports generated via electronic interface contain original data; however they are lacking the format of the original report. Caution should be taken when reading/interpreti ng unformatted reports. Name: ? TELMA RICHTER ? Accession #: ? [id number] ? : ? 1950 (Age: 67) ??F ? Collect Date: ? 05/09/2018 ? Location: ? [facility] ? Receive Date: ? 05/09/2018 ? Provider: CLAYTON BHATIA DO Copy to: MYKE GORDILLO MD ? Final Pathologic Diagnosis: A. SMALL INTESTINE, DUODENUM, 2ND PORTION, BIOPSY: - Duodenal mucosa with vascular congestion and mild peptic features. - Patchy increase in intraepithelial lymphocytes. See comment. ?? B. STOMACH, ANTRUM, BIOPSY: - Antral mucosa with vascular congestion and reactive gastropathy. - No evidence of Helicobacter pylori on H&E. C. STOMACH, GREATER CURVATURE, BIOPSY: - Oxyntic mucosa with vascular congestion and mild reactive gastropathy. - Small lymphoid aggregate. - No evidence of Helicobacter pylori on H&E. D. COLON, CECUM, BIOPSY: - Colonic mucosa with vascular congestion otherwise no abnormality. E. COLON, ASCENDING, 3.0 MM POLYP, BIOPSY: - Fragment of tubular adenoma. F. COLON, ASCENDING, BIOPSY: - Colonic mucosa with vascular congestion otherwise no abnormality. G. COLON, TRANSVERSE, BIOPSY: - Colonic mucosa with vascular congestion otherwise no abnormality. H. COLON, DESCENDING, BIOPSY: - Superficial colonic mucosa with vascular congestion otherwise no abnormality. I. COLON, DESCENDING, 1.0 CM POLYP, BIOPSY: - Fragments of sessile serrated adenoma. - Deeper sections were examined. J. COLON, SIGMOID, 8.0 MM POLYP, BIOPSY: - Fragments of tubular adenoma. K. COLON, SIGMOID, BIOPSY: - Colonic mucosa with no significant abnormality. L. COLON, SIGMOID, 7.0 MM POLYP, BIOPSY: - Fragment of hyperplastic polyp with features of mucosal prolapse. Comment: Part A. There are a few foci of intraepithelial lymphocytosis and mild villous blunting with peptic change. Features are mild and not entirely specific. A possibility of medication/ drug effect or celiac enteropathy is not excluded. Document reviewed and electronically signed by: YAMEL MOON MD Report ??Date: 05/18/2018 19:53 By the signature above, the attending physician certifies that he/she has personally conducted a gross and/or microscopic examination of the described specimens and rendered or confirmed the above diagnosis. Specimen(s) Received: A. ??2nd portion of duodenum B. ??Antral erythema C. ??Greater curve D. ??Cecum E. ??3.0 mm ascending colon polyp F. ??Ascending colon G. ??Transverse colon H. ??Descending colon I. ??1.0 cm semi-sessile descending colon polyp J. ??8.0 mm sigmoid colon polyp K. ??Sigmoid bx L. ??7.0 mm sigmoid colon polyp Clinical History: Diarrhea, nausea, hx of cirrhosis; clinical diagnosis code: ??K92.2 Gross Description: A. ?Received in formalin labelled with proper patient identification (initials A, D) and 2nd portion of duodenum are three pink-kendrick tissues (0.4 x 0.1 x 0.1 cm to 0.3 x 0.2 x 0.2 cm). Entirely submitted in block A1. B. ?Received in formalin labelled with proper patient identification (initials A, D) and antral erythema are two pink-kendrcik tissues (0.3 x 0.2 x 0.1 cm and 0.4 x 0.2 x 0.1 cm). Entirely submitted in block B1. C. ?Received in formalin labelled with proper patient identification (initials A, D) and greater curve are two pink-kendrick tissues (0.1 x 0.1 x 0.1 cm and 0.2 x 0.1 x 0.1 cm). Entirely submitted in block C1. D. ?Received in formalin labelled with proper patient identification (initials A, D) and cecum is a single pink-kendrick tissue fragment (0.3 x 0.2 x 0.1 cm). Submitted intact in block D1. E. ?Received in formalin labelled with proper patient identification (initials A, D) and 3.0 mm ascending colon polyp is a single pink-kendrick tissue fragment (0.2 x 0.2 x 0.2 cm). Submitted intact in block E1. F. ?Received in formalin labelled with proper patient identification (initials A, D) and ascending colon are two pink-kendrick tissues (0.2 x 0.1 x 0.1 cm and 0.2 x 0.2 x 0.1 cm). Entirely submitted in block F1. G. ?Received in formalin labelled with proper patient identification (initials A, D) and transverse colon are two pink-kendrick tissues (0.3 x 0.1 x 0.1 cm and 0.6 x 0.1 x 0.1 cm). Entirely submitted in block G1. H. ?Received in formalin labelled with proper patient identification (initials A, D) and descending colon are two pink-kendrick tissues (0.2 x 0.1 x 0.1 cm and 0.2 x 0.2 x 0.2 cm). Entirely submitted in block H1. I. ?Received in formalin labelled with proper patient identification (initials A, D) and 1.0 cm semi-sessile descending colon polyp are two pink-kendrick tissues (0.4 x 0.3 x 0.2 cm and 0.8 x 0.5 x 0.1 cm). Entirely submitted in block I1. J. ?Received in formalin labelled with proper patient identification (initials A, D) and 8.0 mm sigmoid colon polyp are two pink-kendrick tissues (0.2 x 0.2 x 0.2 cm and 0.5 x 0.4 x 0.3 cm). Entirely submitted in block J1. K. ?Received in formalin labelled with proper patient identification (initials A, D) and sigmoid bx is a single pink-kendrick tissue fragment (0.4 x 0.2 x 0.2 cm). Submitted intact in block K1. L. ?Received in formalin labelled with proper patient identification (initials A, D) and 7.0 mm sigmoid colon polyp is a single pink-kendrick tissue fragment (0.2 x 0.2 x 0.2 cm). Submitted intact in block L1. [place] Elise (ASCP) 05/12/2018 7:55 AM End of Report [facility] 05/09/2018 16:4 4 EDT 05/09/2018 16:44 EDT Clayton Bhatia DO PATHOLOGY ORDERABLES [facility] [address] [place] [address] documented in this encounter Visit Diagnoses Not on filedocumented in this encounter Care Teams Brick Off Bearer Relationship Specialty Start Date End Date Amber Ratliff ARNP [address] [place] [address] PCP - General 12/10/16 documented as of this encounter
--- OUTSIDE RECORDS SUMMARY | 2024-07-07 13:35 | XMS_ITS | Encounter Summary ---
Author Organization [facility] Address [address] [place] [address] Care Team Providers Care General Matcher Name Role Phone Unknown, Provider Primary Care Provider Unava ilable Encounter Details Date Type Department Care Team (Late st Contact Info) Description 03/27/2016 Results Only [facility] [phone] Dustin Boyd MD [address] [facility] [address] [place] [address] Social History Tobacco Use Types [...] Date/Time Associated Diagnosis Comments SURGICAL PATHOLOGY Routine 03/27/2016 9:18 EDT documented in this encounter Results * SURGICAL PATHOLOGY (03/27/2016 9:18 EDT) Pathology Report: SURGICAL PATHOLOGY REPORT Reports generated via electronic interface contain original data; however they are lacking the format of the original report. Caution should be taken when reading/interpret ing unformatted reports. Name: ? TELMA RICHTER ? Accession #: ? [id number] ? : ? 1950 (Age: 65) ??F ? Collect Date: ? 03/27/2016 ? Location: ? [facility] ? Receive Date: ? 03/29/2016 ? Provider: MANUEL BOYD MD Copy to: ? Final Pathologic Diagnosis: A. DUODENUM, SECOND PORTION, BIOPSY: - ??Duodenum mucosa with no specific pathologic features. B. STOMACH, ANTRUM AND BODY, BIOPSY: - ??Gastric mucosa with no specific pathologic features. Document reviewed and electronically signed by: RAY DEE MD Report ??Date: 04/02/2016 17:40 By the signature above, the attending physician certifies that he/she has personally conducted a gross and/or microscopic examination of the described specimens and rendered or confirmed the above diagnosis. Specimen(s) Received: A. ??2nd portion duodenum B. ??Antrum and body Clinical History: Hep C; clinical diagnosis code: ??K74.69, Z12.11 Gross Description: A. ?Received in formalin labelled with proper patient identification (initials A, D) and 2nd portion duodenum is a kendrick-ceballos tissue, 0.3 x 0.2 x 0.1 cm. Entirely submitted in A1. B. ?Received in formalin labelled with proper patient identification (initials A, D) and antrum + body are two kendrick tissues averaging 0.2 x 0.2 x 0.2 cm. Entirely submitted in B1. Pia Bray 03/29/2016 10:04 AM End of Report [facility] 03/27/2016 9:18 EDT 03/29/2016 9:18 EDT Dustin Boyd MD PATHOLOGY ORDERABLES [facility] [address] [place] [address] documented in this encounter Visit Diagnoses Not on filedocumented in this encounter Care Teams General Matcher Relationship Specialty Start Date End Date Unknown, Provider, PCP - General 03/29/16 12/09/16 documented as of this encounter
--- OUTSIDE RECORDS SUMMARY | 2024-07-07 13:35 | XMS_ITS | Encounter Summary ---
Author Organization [facility] Address [address] [place] [address] Care Team Providers Care Php Mysql Developer Name Role Phone Unavailable Primary Care Provider Unavailabl e Encounter Details Date Type Department Care Team (Latest Contact Info) Description 03/27/2016 9:57 EDT - 03/27/2016 23:59 EDT Hospital Encounter [address] [address] Unknown, Provider, MD Discharge Disposition: Home or Self Care Social History Tobacco Use Types Packs/Day Years Used Date Smoking Tobacco: Never Assessed Sex and Gender Information Value Date Recorded Sex Assigned at Not on file Gender Identity Not on file Sexual Orientation Not on file documented as of this encounter Discharge Disposition Disposition Code Departure Means Destination Home or Self Senior Living documented in this encounter Plan of Treatment Not on file documented as of this encounter Visit Diagnoses Not on filedocumented in this encounter
--- OUTSIDE RECORDS SUMMARY | 2024-07-07 13:35 | XMS_ITS | Clinical Summary ---
Author Organization [facility] Address [address] [place] [address] Care Team Providers Care Mystery Shopper Name Role Phone Amber Ratliff MAHSA Primary Care Provider [phone] Social History Tobacco Use Types Packs/Day Years Used Date Smoking Tobacco: Never Assessed Interpersonal Safety Answer Date Record ed Physically Hurt Never 04/04/2020 Verbally Threaten Not on file 04/04/2020 Sex and Gender Information Value Date Recorded Sex Assigned at Not on file Gender Identity Not on file Sexual Orientation Not on file Plan of Treatment Health Maintenance Due Date Last Done Comments Hepatitis C Screen 1950 RSV Immunization ( o r 60+ Years) (1 - 1-dose 60+ series) 2011 Fall Risk Screening 2016 COVID-19 Vaccine ( season) 2023 Care Teams Mystery Shopper Relationship Specialty Start Date End Date Amber Ratliff ARNP [address] [place] [address] PCP - General 12/10/16
--- OUTSIDE RECORDS SUMMARY | 2024-07-07 13:35 | XMS_ITS | Continuity of Care Document ---
Author Organization [facility] Address [address] [place] [id number] Care Team Providers Care Regional Marketing Manager Name Role Phone MYKE GORDILLO MD Primary Care Physician Encounter [id number] FIN NBR [id number] Date(s): 03/20/24 - 04/21/[address] [address]- [place] Encounter Diagnosis Pain in right shoulder(Discharge Diagnosis) - 03/20/24 Pain in right shoulder(Final) - Discharge Disposition: Home-No Follow Up Attending Physician: Lux Lyon, PT, DPT, OCS Admitting Physician: JROGE VALERA Referring Physician: JORGE VALERA Allergies, Adverse Reactions, Alerts No Known Allergies Functional Status 03/20/24 Prior ADL Status Independent Prior Mobility Status Independent Prior Instrumental ADL Level Independent Prior Cognitive-Communication Skills Ind ependent 03/20/24 Patient's Responsibilities Rehab Employe d Medications atorvastatin 0 Refill(s) Start Date: 09/18/22 [...] Never tobacco user T obacco Use:. Sex Sex Representation Female (finding) Patient Care team information Care Team Personnel Name: MYKE GORDILLO MD Position: No Access Member Role: Primary Care Physician Address: [address] [place] [address]- Care Team Related Persons Name: BIENVENIDO MARAVILLA Name: JENNY DE LEON Insurance Providers Guarantor name: SHERRON Olsen [employer] Information #: 1 Payer: [employer]as[employer] Member Number: [id number] Policy Number: NA
--- OUTSIDE RECORDS SUMMARY | 2024-07-07 13:35 | XMS_ITS | Encounter Summary ---
Author Organization [facility] Address [address] [place] [address] Care Team Providers Care Disc Inspector Name Role Phone Amber Ratliff Primary Care Provider [phone] Encounter Details Date Type Department Care Team (Latest Contact Info) Description 08/16/2017 17:06 EST - 08/16/2017 23:59 EST Hospital Encounter [address] [address] Unknown, Provider, MD Discharge Disposition: Home or Self Care Social History Tobacco Use Types Packs/Day Years Used Date Smoking Tobacco: Never Assessed Sex and Gender Information Value Date Recorded Sex Assigned at Not on file Gender Identity Not on file Sexual Orientation Not on file documented as of this encounter Discharge Disposition Disposition Code Departure Means Destination Home or Self Group Home documented in this encounter Plan of Treatment Not on file documented as of this encounter Visit Diagnoses Not on filedocumented in this encounter Care Teams Disc Inspector Relationship Specialty Start Date End Date Amber Ratliff ARNP [address] [place] [address] PCP - General 12/10/16 documented as of this encounter
--- OUTSIDE RECORDS SUMMARY | 2024-07-07 13:35 | XMS_ITS | Encounter Summary ---
Author Organization [facility] Address [address] [place] [address] Care Team Providers Care Shuttle Operator Name Role Phone Amber Ratliff MAHSA Primary Care Provider [phone] Encounter Details Date Type Department Care Team (Late st Contact Info) Description 03/23/2021 Lab Requisition [facility] Pathology & Laboratory Medicine - [place] [address] [place] [address] Justino Lucia MD [address] [place], [place] [id number] Encounter for other general examination Social History Tobacco Use Types Packs/Day Years [...] Procedure Name Priority Date/Time Associated Diagnosis Comments PAP TEST Today 03/21/2021 12:30 EDT Encounter for other general examination HPV DNA DETECTION WITH GENOTYPING, PCR Today 03/21/2021 12:30 EDT Encounter for other general examination documented in this encounter Results * HUMAN PAPILLOMAVIRUS (HPV) DETECTION-HIGH RISK TYPES (03/21/2021 12:30 EDT) HPV other High Risk types, PCR Negative Negative 03/31/2021 15:32 EDT [facility] Comment:No E6 or E7 mRNA is detected from HPV types 16,18,31,33,35,39,45,51,52,56,58,59,66, and 68 by pediatric registered nurse mediated amplification. Papanicolaou smear specimen (specimen) CERVIX UTERI STRUCTURE / Unknown 03/21/2021 12:30 EDT 03/30/2021 15:47 EDT Justino Lucia MD MICROBIOLOGY - GENER AL ORDERABLES [facility] [address] [place] [address] * PAP TEST (03/21/2021 12:30 EDT) Specimens A. Cervix and/or Endocervix , ThinPrep Imaging System with Manual Evaluation 04/03/2021 7:37 T [facility] Specimen Adequacy Satisfactory for Evaluation - transformation zone component present 04/03/2021 7:37 [facility] General Categorization Negative for intraepithelial lesion or malignancy 04/03/2021 7:37 [facility] Attestation By the signature below, the attending physician certifies that they have personally conducted a gross and/or microscopic examination of the described specimens and rendered or confirmed the above diagnosis. 04/03/2021 7:37 [facility] at 0737 Clinical History See below 04/03/20 7:37 [facility] HPV The result for the Human Papillomavirus (HPV) Detection-High Risk Types is Negative. No E6 or E7 mRNA is detected from HPV types 16,18,31,33,35,39 ,45,51,52,56,58,5 9,66, and 68 by pediatric registered nurse mediated amplification.Arcelia ting was performed on specimen [id number] and was resulted on 03/31/2021 1527 EDT by LOIS, LAB INSTRUMENT RESULTS IN 04/03/2021 7:37 T [facility] Performing Lab [facility] 04/03/2021 7:37 T [facility] Scanned Images 04/03/2021 7:37 EDT [facility] Papanicolaou smear specimen (specimen) CERVIX UTERI STRUCTURE / Unknown 03/21/2021 12:30 EDT 03/23/2021 12:40 EDT Justino Lucia MD PATHOLOGY ORDERABLES Performing Organization Address City/State/[facility] Co de Phone Number [facility] [address] [place] [address] documented in this encounter Visit Diagnoses Diagnosis Encounter for other general examination documented in this encounter Care Teams Shuttle Operator Relationship Specialty Start Date End Date Amber Ratliff ARNP [address] [place] [address] PCP - General 12/10/16 documented as of this encounter
--- OUTSIDE RECORDS SUMMARY | 2024-07-07 13:36 | XMS_ITS | Encounter Summary ---
Author Organization [facility] [place] [address] Care Team Providers Care Scarf Gluer Name Role Phone Justino Lucia MD Primary Care Provider [phone] Encounter Details Date Type Department Care Team (Late st Contact Info) Description 08/02/2023 Telephone [place] [phone] Joyce Levin Social History Tobacco Use Types Packs/Day Years Used Date Smoking Tobacco: Former Cigarettes 3 42 Smokeless Tobacco: Never Alcohol Use Standard Drinks/Week Comments No 0 (1 standard drink = 0.6 oz pur e alcohol) Sex and Gender Information Value Date Recorded Sex Assigned at Not on file Gender Identity Not on file Sexual Orientation Not on file documented as of this encounter Miscellaneous Notes * Telephone Encounter - Joyce Levin - 08/02/2023 1:06 PM EST Left message. Need to schedule 6 month follow-up with US and labs. (See recall) documented in this encounter Plan of Treatment Upcoming Encounters Date Type Department Care Team (Late st Contact Info) Description 07/22/2024 9:00 AM EST Appointment [place] [phone] Ana Ho MD [facility] [place] [address] 07/22/2024 10:00 AM EST Laboratory Appointment Lab [address] [place] [address] 07/22/2024 11:00 AM EST Office [place] [address] Ana Ho MD [facility] [address] GASTROENTEROLOGY [place], [place] [id number] 09/15/2024 10:00 AM EST TH Visit (TeleHealth) [place] [address] Candy Clifford MD [facility] [address] [facility] [address] Scheduled Procedures Name Priority Associated Diagnoses Date/Ti me EGD, UPPER GI ENDOSCOPY (WRV U 2.09) Hepatic cirrhosis, unspecified hepatic cirrhosis type, unspecified whether ascites present documented as of this encounter Goals Goal Patient Goal Type Associated Problems Recent Progress Patient-Stated? Author movement Exercise On track(2021 11:16 AM EDT) No Pankaj Mcadams Note: Try gentle movement like chair yoga, t'ai chi and qigong. Health Customer Development Representative will send hand-outs. Use resistance bands. Health Customer Development Representative will request a set be mailed. Movement [...] opportunity to start with protein (cottage cheese, belarusian yogurt, protein smoothies, chicken or chicken salad [...] for sample meal ideas in the [employer]PS [facility] Keep food log until you are seen by the dieititian. Record everything you eat or drink, include time eaten and any emotional changes that are significant. relaxation/sleep Lifestyle No Pankaj Mcadams Note: Try some meditation/relaxation apps when I wake in the night and can't go back to sleep. Health Customer Development Representative will send some to try. Tried apps but don't really like them as I like the quiet when going to sleep. [facility] 04/23 documented as of this encounter Visit Diagnoses Not on filedocumented in this encounter Care Teams Scarf Gluer Relationship Specialty Start Date End Date Justino Lucia MD PCP - General Family Medicine 10/04/21 documented as of this encounter
--- OUTSIDE RECORDS SUMMARY | 2024-07-07 13:36 | XMS_ITS | Encounter Summary ---
Author Organization [facility] [place] [address] Care Team Providers Care Mat Machine Operator Name Role Phone Justino Lucia MD Primary Care Provider [phone] Reason for Visit * Reason Onset Date Comments Prior Authorization 09/16/2023 Ozempic (2 M G/DOSE) 8MG/3ML pen-injectors Encounter Details Date Type Department Care Team (Late st Contact Info) Description 09/16/2023 Telephone [place] [phone] Debby Camacho CMA Prior Authorization (Ozempic (2 MG/DOSE) 8MG/3ML pen-injectors) Social History Tobacco Use Types Packs/Day Years [...] encounter Miscellaneous Notes * Telephone Encounter - Debby Camacho CMA - 10/16/2023 12:32 PM ESTSummary: Denial Images from the original note were not included. Submitted Date: Submitted Date: 09/16/2023 PA Outcome: PA Denial [place] [address] DENIED: Ozempic Additional Information from Insurance: * Telephone Encounter - Debby Camacho CMA - 09/16/2023 12:43 PM EST PA Submitted Submitted Date: Date Submitted: 09/16/2023 Medication Prior Authorization Patient: Telma Richter Patient : [id number] Insurance Company: [employer] Sent via: [facility] Gomez: [id number] Physician: Candy Clifford MD Medication Requested: semaglutide (Ozempic) 2 mg/dose (8 mg/3 mL) Pen Injector Frequency/Sig: INJECT 2 MILLIGRAMS SUBCUTANEOUSLY ONCE A WEEK DIRECTED Disp: 9 mL Refills: 3 Currently taking: yes If yes, how lon03/2022 Diagnosis for this medication: NAFLD (nonalcoholic fatty liver disease) [K76.0]; Hyperlipidemia, unspecified hyperlipidemia type [E78.5]; Prediabetes [R73.03]; Insulin resistance [E88.819] Additional Notes: 07/23/2023 Initial weight 01/18/22: 335 lbs (33.5 lbs, [...] lbs (+ 1 lbs, - 47 lbs) ASSESSMENT AND PLAN: Telma Richter was seen [...] Vitamin D deficiency. GERD. OA. Referrals pending: In ACT, interested in maintenance class. AOM: Ozempic 2 mg Diagnoses and all orders for this visit: Class 3 severe obesity with serious comorbidity and body mass index (BMI) of 50.0 to 59.9 in adult,unspecified obesity type NAFLD (nonalcoholic fatty liver disease) - semaglutide (Ozempic) 2 mg/dose (8 mg/3 mL) Pen Injector; INJECT 2 MILLIGRAMS SUBCUTANEOUSLY ONCEA WEEK DIRECTED Hyperlipidemia, unspecified hyperlipidemia type - semaglutide (Ozempic) 2 mg/dose (8 mg/3 mL) Pen Injector; INJECT 2 MILLIGRAMS SUBCUTANEOUSLY ONCEA WEEK DIRECTED Prediabetes - semaglutide (Ozempic) 2 mg/dose (8 mg/3 mL) Pen Injector; INJECT 2 MILLIGRAMS SUBCUTANEOUSLY ONCEA WEEK DIRECTED Insulin resistance - semaglutide (Ozempic) 2 mg/dose (8 mg/3 mL) Pen Injector; INJECT 2 MILLIGRAMS SUBCUTANEOUSLY ONCEA WEEK DIRECTED documented in this encounter Plan of Treatment Upcoming Encounters Date Type Department Care Team (Late st Contact Info) Description 07/22/2024 9:00 AM EST Appointment [place] [phone] Ana Ho MD [facility] [place] [address] 07/22/2024 10:00 AM EST Laboratory Appointment Lab [address] [place] [phone] 07/22/2024 11:00 AM EST Office Visit [place] [phone] Ana Ho MD [facility] [place] [address] 09/15/2024 10:00 AM EST TH Visit (TeleHealth) Weight and Wellness at [facility] [place] [phone] Candy Clifford MD [facility] DR [facility] [address] Scheduled Procedures Name Priority Associated Diagnoses Date/Ti me EGD, UPPER GI ENDOSCOPY (WRV U 2.09) Hepatic cirrhosis, unspecified hepatic cirrhosis type, unspecified whether ascites present documented as of this encounter Goals Goal Patient Goal Type Associated Problems Recent Progress Patient-Stated? Author movement Exercise On track(2021 11:16 AM EDT) No Pankaj Mcadams Note: Try gentle movement like chair yoga, t'ai chi and qigong. Health Swing Tender will send hand-outs. Use resistance bands. Health Swing Tender will request a set be mailed. Movement [...] opportunity to start with protein (cottage cheese, danish yogurt, protein smoothies, chicken or chicken salad [...] for sample meal ideas in the [employer]PS [facility] Keep food log until you are seen by the dieititian. Record everything you eat or drink, include time eaten and any emotional changes that are significant. relaxation/sleep Lifestyle No Pankaj Mcadams Note: Try some meditation/relaxation apps when I wake in the night and can't go back to sleep. Health Swing Tender will send some to try. Tried apps but don't really like them as I like the quiet when going to sleep. [facility] 04/23 documented as of this encounter Visit Diagnoses Not on filedocumented in this encounter Care Teams Mat Machine Operator Relationship Specialty Start Date End Date Justino Lucia MD PCP - General Family Medicine 10/04/21 documented as of this encounter
--- OUTSIDE RECORDS SUMMARY | 2024-07-07 13:36 | XMS_ITS | Encounter Summary ---
Author Organization [facility] [place] [address] Care Team Providers Care Outdoor Adventure Leader Name Role Phone Justino Lucia MD Primary Care Provider [phone] Encounter Details Date Type Department Care Team (Latest Contact Info) Description 01/17/2024 9:15 AM EDT Laboratory Appointment Lab [address] [place] [phone] Hepatic cirrhosis, unspecified hepatic cirrhosis type, unspecified whether ascites present Social History Tobacco Use Types Packs/Day Years [...] 07/22/2024 9:00 AM EST Appointment [place] [phone] Ana Ho MD [facility] [place] [address] 07/22/2024 10:00 AM EST Laboratory Appointment Lab [address] [place] [phone] 07/22/2024 11:00 AM EST Office Visit [place] [address] Ana Ho MD [facility] [place] [address] 09/15/2024 10:00 AM EST TH Visit (TeleHealth) [place] [phone] Candy Clifford MD [facility] DR [facility] [address] Scheduled Procedures Name Priority Associated Diagnoses Date/Ti me EGD, UPPER GI ENDOSCOPY (WRV U 2.09) Hepatic cirrhosis, unspecified hepatic cirrhosis type, unspecified whether ascites present documented as of this encounter Goals Goal Patient Goal Type Associated Problems Recent Progress Patient-Stated? Author movement Exercise On track(2021 11:16 AM EDT) No Pankaj Mcadams Note: Try gentle movement like chair yoga, t'ai chi and qigong. Health Recruitment And Outreach Assistant will send hand-outs. Use resistance bands. Health Recruitment And Outreach Assistant will request a set be mailed. Movement [...] for sample meal ideas in the [employer]PS [facility] Keep food log until you are seen by the dieititian. Record everything you eat or drink, include time eaten and any emotional changes that are significant. relaxation/sleep Lifestyle No Pankaj Mcadams Note: Try some meditation/relaxation apps when I wake in the night and can't go back to sleep. Health Recruitment And Outreach Assistant will send some to try. Tried apps but don't really like them as I like the quiet when going to sleep. [facility] 04/23 documented as of this encounter Procedures Procedure Name Priority Date/Time Associated Diagnosis Comments HEMOGRAM Routine 01/17/2024 9:10 AM EDT Hepatic cirrhosis, unspecified hepatic cirrhosis type, unspecified whether ascites present DIFFERENTIAL, AUTOMATED Routine 01/17/2024 9:10 AM EDT Hepatic cirrhosis, unspecified hepatic cirrhosis type, unspecified whether ascites present PROTHROMBIN TIME Routine 01/17/2024 9:10 AM EDT Hepatic cirrhosis, unspecified hepatic cirrhosis type, unspecified whether ascites present CBC (WITH DIFF) Routine 01/17/2024 9:10 AM EDT Hepatic cirrhosis, unspecified hepatic cirrhosis type, unspecified whether ascites present COMPREHENSIVE METABOLIC PANEL Routine 01/17/2024 9:10 AM EDT Hepatic cirrhosis, unspecified hepatic cirrhosis type, unspecified whether ascites present documented in this encounter Results * Differential, Automated (01/17/2024 9:10 AM EDT) Neutrophil % 58.3 % [facility] Neutrophil Absolute 2.43 1.70 - 6.10 x10(3)/mcL [facility] Lymph % 27.1 % [facility] Lymphocytes Abs 1.1 0.9 - 3.2 x10(3)/[facility] Monocyte % 10.3 % [facility] Monocyte Abs 0.4 0.3 - 0.9 x10(3)/[facility] Eos % 3.6 % [facility] Eosinophils Abs 0.2 0.0 - 0.4 x10(3)/[facility] Basophil % 0.7 % [facility] Baso Absolute 0.0 0.0 - 0.1 x10(3)/[facility] Immature Gran % 0.00 % [facility] Comment: Immature granulocytes(IG's)percentage and absolute count will include metamyelocytes, myelocytes, and promyelocytes. Blood smears from CBCs yielding IG's will be scanned manually for concordance. If this scan disagrees with the automated IG or if promyelocytes are noted, a manual differential will be performed. Immature Gran Absolute 0.00 0.00 - 0.04 x10(3)/[facility] Blood 01/17/2024 9:10 AM EDT 01/17/2024 9:15 AM EDT Narrative Resulting Agency Comment Spec In Lab Ana Ho MD HEMATOLOGY ORDERABLE S Performing Organization Address City/State/[facility] Co de Phone Number [facility] [place] [address] * Hemogram (01/17/2024 9:10 AM EDT) White Blood Cell 4.2 4.0 - 9.5 x10(3)/[facility] Red Blood Cell 4.30 4.00 - 5.21 x10(6)/[facility] Hemoglobin 12.7 11.7 - 15.5 g/dL [facility] Hematocrit 39.0 35.7 - 45.8 % [facility] Mean Cell Volume 90.7 82.6 - 94.4 fL [facility] Mean Cell Hemoglobin 29.5 27.1 - 32.0 pg [facility] Mean Cell Hemoglobin Concentration 32.6 31.7 - 35.0 g/dL [facility] Platelet 204 145 - 357 x10(3)/[facility] RDW Standard Deviation 45.5 37.0 - 46.0 [facility] RDW coefficient of variation 13.7 11.5 - 14.1 % [facility] Mean Platelet Volume 9.5 7.6 - 12.9 [facility] NRBC% auto 0.0 % [facility] NRBC Absolute 0.000 0.000 - 0.000 x10(3)/[facility] Blood 01/17/2024 9:10 AM EDT 01/17/2024 9:15 AM EDT Narrative Resulting Agency Comment Spec In Lab Ana Ho MD HEMATOLOGY ORDERABLE S [facility] [place] [address] * (ABNORMAL) Prothrombin Time (01/17/2024 9:10 AM EDT) Prothrombin Time 13.4(H) 9.4 - 12.5 sec [facility] International Normalization Ratio 1.2 [facility] Comment: An INR <2.0 indicates adequate procoagulant activity for hemostasis in most patients without underlying bleeding disorders, though the INR may not adequately reflect hemostatic capacity in patients with liver disease and synthetic impairment. The recommended target INR range for therapeutic anticoagulation is 2.0 ? 3.0 for most applications, though lower and higher ranges may be appropriate depending on clinical circumstances. Blood 01/17/2024 9:10 AM EDT 01/17/2024 9:15 AM EDT Narrative Resulting Agency Comment Spec In Lab Ana Ho MD HEMATOLOGY ORDERABLE S [facility] [place] [address] * Comprehensive metabolic panel (non-fasting) (01/17/2024 9:10 AM EDT) Glucose 92 65 - 199 mg/dL [facility] Comment:Diabetes: >=200 mg/d L plus symptoms Blood Urea Nitrogen 11 8 - 18 mg/dL [facility] Creatinine 0.72 0.70 - 1.20 mg/dL [facility] Sodium 144 135 - 145 mmol/L [facility] Potassium 4.2 3.5 - 5.0 mmol/L [facility] Comment: Please note: ??Patients with WBC >100,000 may have falsely elevated Potassium levels. ??For accurate Potassium quantification in these patients send serum separator tube (gold top) for subsequent determinations. ??Contact the Clinical Chemistry Laboratory if there are any questions. Chloride 106 98 - 107 mmol/L [facility] Carbon Dioxide 29 22 - 31 mmol/L [facility] Anion Gap 9 5 - 15 mmol/L [facility] Calcium 8.8 8.5 - 10.5 mg/dL [facility] Protein, Total 6.7 6.1 - 8.0 g/dL [facility] Albumin 3.7 3.2 - 5.2 g/dL [facility] Aspartate Aminotransferase 23 0 - 30 unit/L [facility] Alanine Aminotransferase 14 0 - 30 unit/L [facility] Alkaline Phosphatase 84 35 - 105 unit/L [facility] Bilirubin, Total 1.1 0.2 - 1.3 mg/dL [facility] Est Glomerular Filtration Rate 89 >=60 mL/min/1. 73 m?? [facility] Comment: This patient's estimated GFR was [...] In Lab Ana Ho MD CHEMISTRY ORDERABLES [facility] [place] [address] documented in this encounter Visit Diagnoses Diagnosis Hepatic cirrhosis, unspecified hepatic cirrhosis type, unspecified whether ascites present documented in this encounter Care Teams Outdoor Adventure Leader Relationship Specialty Start Date End Date Justino Lucia MD PCP - General Family Medicine 10/04/21 documented as of this encounter
--- OUTSIDE RECORDS SUMMARY | 2024-07-07 13:36 | XMS_ITS | Encounter Summary ---
Author Organization [facility] [place] [address] Care Team Providers Care Financial Institution Branch Manager Name Role Phone Justino Lucia MD Primary Care Provider [phone] Reason for Visit * Reason Comments Medication Refill Encounter Details Date Type Department Care Team (Late st Contact Info) Description 04/12/2024 Refill [place] [phone] Candy Clifford MD [facility] DR [facility] [place] [address] Social History Tobacco Use Types Packs/Day Years [...] 07/22/2024 9:00 AM [place] [phone] Ana Ho MD [facility] GASTROENTEROLOGY [place], [place] [phone] 07/22/2024 10:00 AM EST Laboratory Appointment Lab [address] [place] [address] 07/22/2024 11:00 AM EST Office [place] [phone] Ana Ho MD [facility] [place] [address] 09/15/2024 10:00 AM EST TH Visit (TeleHealth) [place] [phone] Candy Clifford MD [facility] DR [facility] [place] [address] Scheduled Procedures Name Priority Associated Diagnoses Date/Ti me EGD, UPPER GI ENDOSCOPY (WRV U 2.09) Hepatic cirrhosis, unspecified hepatic cirrhosis type, unspecified whether ascites present documented as of this encounter Goals Goal Patient Goal Type Associated Problems Recent Progress Patient-Stated? Author movement Exercise On track(2021 11:16 AM EDT) No Pankaj Mcadams Note: Try gentle movement like chair yoga, t'ai chi and qigong. Health Pants Maker will send hand-outs. Use resistance bands. Health Pants Maker will request a set be mailed. Movement [...] opportunity to start with protein (cottage cheese, occitan yogurt, protein smoothies, chicken or chicken salad [...] sample meal ideas in the [employer]PS [facility] Keep food log until you are seen by the dieititian. Record everything you eat or drink, include time eaten and any emotional changes that are significant. relaxation/sleep Lifestyle No Pankaj Mcadams Note: Try some meditation/relaxation apps when I wake in the night and can't go back to sleep. Health Pants Maker will send some to try. Tried apps but don't really like them as I like the quiet when going to sleep. [facility] 04/23 documented as of this encounter Visit Diagnoses Not on filedocumented in this encounter Care Teams Financial Institution Branch Manager Relationship Specialty Start Date End Date Justino Lucia MD PCP - General Family Medicine 10/04/21 documented as of this encounter
--- OUTSIDE RECORDS SUMMARY | 2024-07-07 13:36 | XMS_ITS | Encounter Summary ---
Author Organization [facility] [place] [address] Care Team Providers Care Medical Scribe Name Role Phone Justino Lucia MD Primary Care Provider Reason for Visit * Reason Onset Date Comments Medication Refill 09/30/2023 Encounter Details Date Type Department Care Team (Late st Contact Info) Description 09/30/2023 Refill [place] [phone] Candy Clifford MD [facility] [address] [facility] [address] NAFLD (nonalcoholic fatty liver disease); Hyperlipidemia, unspecified hyperlipidemia type; Prediabetes; Insulin resistance Social History Tobacco Use Types Packs/Day Years [...] 07/22/2024 9:00 AM [place] [phone] Ana Ho MD [facility] [place] [address] 07/22/2024 10:00 AM EST Laboratory Appointment Lab [address] [place] [address] 07/22/2024 11:00 AM EST Office [place] [address] Ana Ho MD [facility] DR GASTROENTEROLOGY [place], [place] [phone] 09/15/2024 10:00 AM EST TH Visit (TeleHealth) [place] [phone] Candy Clifford MD [facility] [address] [facility]DOM[facility] [address] Scheduled Procedures Name Priority Associated Diagnoses Date/Ti me EGD, UPPER GI ENDOSCOPY (WRV U 2.09) Hepatic cirrhosis, unspecified hepatic cirrhosis type, unspecified whether ascites present documented as of this encounter Goals Goal Patient Goal Type Associated Problems Recent Progress Patient-Stated? Author movement Exercise On track(2021 11:16 AM EDT) No Pankaj Mcadams Note: Try gentle movement like chair yoga, t'ai chi and qigong. Health Internet Salesperson will send hand-outs. Use resistance bands. Health Internet Salesperson will request a set be mailed. Movement [...] opportunity to start with protein (cottage cheese, georgian yogurt, protein smoothies, chicken or chicken salad [...] and can't go back to sleep. Health Internet Salesperson will send some to try. Tried apps but don't really like them as I like the quiet when going to sleep. [facility] 04/23 documented as of this encounter Visit Diagnoses Diagnosis NAFLD (nonalcoholic fatty liver disease) Other chronic nonalcoholic liver disease Hyperlipidemia, unspecified hyperlipidemia type Prediabetes Other abnormal glucose Insulin resistance Dysmetabolic Syndrome X documented in this encounter Care Teams Medical Scribe Relationship Specialty Start Date End Date Justino Lucia MD PCP - General Family Medicine 10/04/21 documented as of this encounter
--- OUTSIDE RECORDS SUMMARY | 2024-07-07 13:36 | XMS_ITS | Encounter Summary ---
Author Organization [facility] [place] [address] Care Team Providers Care Telegraph Inspector Name Role Phone Justino Lucia MD Primary Care Provider [phone] Encounter Details Date Type Department Care Team (Late st Contact Info) Description 01/17/2024 11:00 AM EDT Office [place] [address] Ana Ho MD [facility] [place] [address] Hepatic cirrhosis, unspecified hepatic cirrhosis type, unspecified whether ascites present (Primary Dx); NAFLD (nonalcoholic fatty liver disease) Social History Tobacco Use Types Packs/Day Years [...] Sign Reading Time Taken Comments Blood Pressure 120/47 01/17/2024 10:22 AM EDT Pulse 56 01/17/2024 10:22 AM EDT Temperature - - Respiratory Rate - - Oxygen Saturation - - Inhaled Oxygen Concentration - - Weight 132.8 kg (292 lb 12.8 oz) 2023 10:22 AM EDT Height 157.5 cm (5' 2) 01/17/2024 10:2 2 AM EDT Body Mass Index 53.55 01/17/2024 10:22 AM EDT documented in this encounter Progress Notes * Ana Ho MD - 01/17/2024 11:00 AM EDT Gastroenterology and Hepatology Follow Up Note Patient: Telma Richter Sex: female : 1950 PCP: Justino Lucia MD LIVER HISTORY Lives with son and grandchildren Cirrhosis, 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 Ramon @ [facility], longstanding follow-up, [place] [facility] [place] (HCV dx) -HCV treated with Harvnoi x12 weeks in 2014 (RF of remote cocaine use, +FHx) -ETOH: would binge drink on weekends, sober several years since 2005 -Metabolic risks: obesity, HTN, HLD, prediabetes -No over GI bleeding history -Gastric varices in fundus on EGD 05/2018, no EV -Last EGD 06/05/22 with small GOV2, no PHG, benign appearing gastric polyps [place] 06/05/22 with small TA -?HE, minimal elevation in ammonia and mild memory issues, improved May 2022, no treatment -FHx of hemochromatosis (HFE negative) -Following with [facility] since spring 2021 with good success in weight loss on GLP-1 -HCC screening: US 01/01/23 with no liver lesions, trace perihepatic ascites, normal spleen -Last MELD-Na = 7 on 01/01/23 -Last AFP = 3.2 on 12/14/21 -07/2023 CT A/P for HCC screening showed no new liver lesions but pulmonary nodule noted; has followed up with PCP about this -MELD labs from 07/2023 stable, all wnl. 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 I49.3 Edema of lower extremity R60.0 Epistaxis R04.0 Anxiety F41.9 Depression F32.A Anemia D64.9 Osteopenia M85.80 PSVT (paroxysmal supraventricular tachycardia) I47.10 Cirrhosis K74.60 History of hepatitis C Z86.19 Asthma J45.909 Hypertension I10 Class 3 severe obesity with serious comorbidity and body mass index (BMI) of 50.0 to 59.9 in adult E66.01, Z68.43 History of alcohol abuse F10.11 Hyperlipidemia E78.5 History of colon polyps Z86.010 Osteoarthritis of hip M16.9 History of shoulder replacement Z96.619 Portal hypertension K76.6 Prediabetes R73.03 Insulin resistance E88.819 NAFLD (nonalcoholic fatty liver disease) K76.0 Interval History: Ms. Telma Richter is 73 y.o. with a history of cirrhosis suspected due to combination of hepatitis C (treated and cured) as well as MASH/ROBER. -insurance would not cover semaglutide, after one year had to stop taking. Lost 90 lbs on it, off of it for 3 months and re-gained 15 lbs. Working with [facility] to try to get PA -screening RUQUS 01/17/24 without liver lesions -BM are improved now, has not needed Imodium. Taking psyllium BID. BM is daily, formed, without blood. -once in a while feels bloated, but denies abdominal distention or pain. -still adding salt to foods. Cooks most meals. Has been difficult for her to cut down -no new confusion, no change in sleep pattern or memory loss -continues to abstain from etoh, last drink 22 years ago -lives at home with son. 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 90 packet 3 omeprazole (PriLOSEC) 40 mg Capsule, Delayed Release(E.C.) Take 40 mg by mouth daily. gabapentin (Neurontin) 300 mg Capsule Take 300 mg by mouth 3 times daily. MYRBETRIQ 25 mg Tablet Sustained Release 24 hr meTOPROLOL tartrate (LOPRESSOR) 25 mg Tablet Take 25 mg by mouth 2 times daily. furosemide (LASIX) 20 mg Tablet Take 20 mg by mouth daily. atorvastatin (LIPITOR) 20 mg Tablet Take 1 tablet by mouth daily. 30 tablet 3 cholecalciferol, Vitamin D3, 50 mcg (2,000 unit) Capsule Take 1 capsule by mouth Daily. albuteroL 90 mcg/actuation HFA Aerosol Inhaler Inhale 2 puffs into the lungs every 4 hours as needed for Wheezing. Use with spacer No current facility-administered medications for this visit. Facility-Administered Medications Ordered in Other Visits Medication Dose Route Frequency Provider Last Rate Last Admin midazolam (PF) (VERSED) 1 mg/mL multi-dose injection Once PRN Flavio Daniels MD 1 mg at 02/07/16 1543 fentaNYL 50 mcg/mL multi-dose injection Once PRN Flavio Daniels MD 50 mcg at 02/07/16 1543 heparin (porcine) injection Once PRN Flavio Daniels MD 8,000 Units at 02/07/16 1551 ALLERGIES/ADR No Known Allergies PHYSICAL EXAMINATION: Patient Vitals for the past 24 hrs: Pulse BP 01/17/24 1022 56 120/47 GEN: well appearing, tired in wheelchair. NAD HEENT: EOMI. MMM, clear OP CV: RRR nl S1S2 PULM: CTABL ABD: protuberant, NTND. NBS. No rebound or guarding LE: trace edema to calves, symmetric. [facility] PERTINENT LABS AND IMAGING: No results found for this or any previous visit (from the past 24 hour(s)). MELD 3.0: 9 at 07/04/2023 7:39 AM MELD-Na: 8 at 07/04/2023 7:39 AM Calculated from: Serum Creatinine: 0.77 mg/dL (Using min of 1 mg/dL) at 07/04/2023 7:39 AM Serum Sodium: 142 mmol/L (Using max of 137 mmol/L) at 07/04/2023 7:39 AM Total Bilirubin: 1.0 mg/dL at 07/04/2023 7:39 AM Serum Albumin: 3.4 g/dL at 07/04/2023 7:39 AM INR(ratio): 1.2 at 07/04/2023 7:39 AM Age at listing (hypothetical): 73 years Sex: Female at 07/04/2023 7:39 AM Endoscopy: 06/2023 EGD Impression: - Normal esophagus. No varices - Z-line regular, 36 cm from the incisors. - Portal hypertensive gastropathy. - A few gastric polyps. - Type 1 very small isolated gastric varices (IGV1, varices located in the fundus). - Normal examined duodenum. - No specimens collected. Recommendation: - Repeat upper endoscopy in 1 year for surveillance. EGD 06/05/22 (Dr. Rojas): Impression: - Type 2 gastroesophageal varices (GOV2, esophageal varices which extend along the fundus), without bleeding. - Three benign appearing gastric polyps overlying area of gastric varices, not biopsied per ASGE guideline and also due to proximity to varices. No follow-up needed specific to this incidental finding. Recommendation: - Perform a colonoscopy today. Colonoscopy 06/05/22: Impression: - One 3 mm polyp in the transverse colon, removed with a cold snare. Resected and retrieved. - The examined portion of the ileum was normal. Recommendation: - Await pathology results. - Discharge patient to home (with escort). - Return to referring physician as previously scheduled. - Per [place] Multi-Society Task Force of Colorectal Cancer (MSTF) recommendations, no further colonoscopies as her next intended interval would be at age >75 considering her medical comorbidities. Pathology: From colonoscopy 06/05/22: A - Transverse colon diminutive polyp, resection: - Fragments of tubular adenoma. Imagin01/2024 RUQUS IMPRESSION 1. Liver demonstrates coarsened parenchyma with capsular nodularity consistent with known cirrhosis. There is no focal hepatic lesion. 2. Gallbladder is surgically absent. Mild intra and extrahepatic biliary ductal dilation are present, within expected limits postoperatively. 3. Prominent varix noted near the left lobe. No ascites. 07/2023 CT A/P IMPRESSION 1. Stable findings of cirrhosis without suspicious liver lesions. 2. Gastric varices and large left splenorenal shunt, stable. 3. Mild, nonspecific induration of the perinephric fat, left greater than right, and increased since the prior CT. No discrete retroperitoneal mass. 4. Prior cholecystectomy. 5. Unexpected finding: Possible small right pulmonary nodule at the margin of the study. Consider CT chest evaluation, also to further evaluate stable, peripheral intralobular septal thickening. Ultrasound 2022 IMPRESSION 1. Coarse liver parenchyma with capsular nodularity, consistent with known cirrhosis. No sonographically evident hepatic mass. 2. Trace perihepatic ascites. No splenomegaly. 3. Status post cholecystectomy. No biliary ductal dilatation. ASSESSMENT & PLAN: Telma Richter is a 73 y.o. 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 She has no known history of decompensation though she does have evidence of portal hypertension with gastric varices and trace ascites although none on recent US. She also has lower extremity edema. At the moment, she is reasonably compensated, with MELD-Na score of 8. There were previous concerns of hepatic encephalopathy however not on today's visit. She was previously having excellent success with weight losson GLP-1 agonist but this was recently held due to coverage barrers; working with [facility] on approval/PA. Plan: -psyllium BID -has Imodium 2mg prn -Continue follow-up with [facility] re: semaglutide. -Continue maintaining alcohol sobriety indefinitely. -Repeat EGD due for EV screening given active metabolic risk factors. Given small GV (IGV-1), Pl>150, would hold on NSBB at this time -on furosemide for LE edema, continues for now. No ascites on US -no evidence of HE today -Follow-up in 6 months with ultrasound and labs prior -would be due for surveillance colonoscopy in 2028 if within goals of care 40 minutes spent in chart review, [id number] time and coordination of care with the patient today. Ana Ho MD Gastroenterology and Hepatology 01/13/2024 2:12 PM Pager # [phone] documented in this encounter Plan of Treatment Upcoming Encounters Date Type Department Care Team (Late st Contact Info) Description 07/22/2024 9:00 AM EST [place] [address] Ana Ho MD [facility] [place] [address] 07/22/2024 10:00 AM EST Laboratory Appointment Lab [address] [place] [phone] 07/22/2024 11:00 AM EST Office [place] [address] Ana Ho MD [facility] GASTROENTEROLOGY [place], [place] [id number] 09/15/2024 10:00 AM EST TH Visit (TeleHealth) [place] [address] Candy Clifford MD [facility] DR [facility] [address] Scheduled Orders Name Type Priority Associated Diagnoses Orde r Schedule ENDOSCOPY CASE REQUEST: EGD, UPPER GI ENDOSCOPY (WRVU 2.09) Procedures Routine Hepatic cirrhosis, unspecified hepatic cirrhosis type, unspecified whether ascites present Ordered: 01/17/2024 US Abdomen Limited Hepatology Protocol Imaging Routine Hepatic cirrhosis, unspecified hepatic cirrhosis type, unspecified whether ascites present Expected: 07/19/2024, Expires: 01/18/2025 AFP tumor marker Lab Routine Hepatic cirrhosis, unspecified hepatic cirrhosis type, unspecified whether ascites present Expected: 07/19/2024 (Approximate), Expires: 01/18/2025 Comprehensive metabolic panel (non-fasting) Lab Routine Hepatic cirrhosis, unspecified hepatic cirrhosis type, unspecified whether ascites present Expected: 07/19/2024, Expires: 01/18/2025 CBC (with Diff) Lab Routine Hepatic cirrhosis, unspecified hepatic cirrhosis type, unspecified whether ascites present Expected: 07/19/2024, Expires: 01/18/2025 Prothrombin Time Lab Routine Hepatic cirrhosis, unspecified hepatic cirrhosis type, unspecified whether ascites present Expected: 07/19/2024, Expires: 01/18/2025 Scheduled Procedures Name Priority Associated Diagnoses Date/Ti me EGD, UPPER GI ENDOSCOPY (WRV U 2.09) Hepatic cirrhosis, unspecified hepatic cirrhosis type, unspecified whether ascites present documented as of this encounter Goals Goal Patient Goal Type Associated Problems Recent Progress Patient-Stated? Author movement Exercise On track(2021 11:16 AM EDT) No Pankaj Mcadams Note: Try gentle movement like chair yoga, t'ai chi and qigong. Health Cosmetics Demonstrator will send hand-outs. Use resistance bands. Health Cosmetics Demonstrator will request a set be mailed. Movement [...] opportunity to start with protein (cottage cheese, ecuadorean yogurt, protein smoothies, chicken or chicken salad [...] for sample meal ideas in the [facility] Keep food log until you are seen by the dieititian. Record everything you eat or drink, include time eaten and any emotional changes that are significant. relaxation/sleep Lifestyle No Pankaj Mcadams Note: Try some meditation/relaxation apps when I wake in the night and can't go back to sleep. [employer] Cosmetics Demonstrator will send some to try. Tried apps but don't really like them as I like the quiet when going to sleep. [facility] 04/23 documented as of this encounter Visit Diagnoses Diagnosis Hepatic cirrhosis, unspecified hepatic cirrhosis type, unspecified whether ascites present- Primary NAFLD (nonalcoholic fatty liver disease) Other chronic nonalcoholic liver disease documented in this encounter Care Teams Telegraph Inspector Relationship Specialty Start Date End Date Justino Lucia MD PCP - General Family Medicine 10/04/21 documented as of this encounter
--- OUTSIDE RECORDS SUMMARY | 2024-07-07 13:36 | XMS_ITS | Encounter Summary ---
Author Organization [facility] [place] [address] Care Team Providers Care Lead Game Designer Name Role Phone Justino Lucia MD Primary Care Provider [phone] Reason for Visit * Reason Onset Date Comments Medication Refill 09/30/2023 Encounter Details Date Type Department Care Team (Late st Contact Info) Description 09/30/2023 Refill [place] [phone] Ana Ho MD [facility] [place] [address] Diarrhea, unspecified type Social History Tobacco Use Types [...] 07/22/2024 9:00 AM EST Appointment [place] [phone] Ana Ho MD [facility] [place] [address] 07/22/2024 10:00 AM EST Laboratory Appointment Lab [address] [place] [address] 07/22/2024 11:00 AM EST Office [place] [address] Ana Ho MD [facility] GASTROENTEROLOGY [place], [place] [id number] 09/15/2024 10:00 AM EST TH Visit (TeleHealth) [place] [address] Candy Clifford MD [facility] DR [facility] [place] [address] Scheduled Procedures Name Priority Associated Diagnoses Date/Ti me EGD, UPPER GI ENDOSCOPY (WRV U 2.09) Hepatic cirrhosis, unspecified hepatic cirrhosis type, unspecified whether ascites present documented as of this encounter Goals Goal Patient Goal Type Associated Problems Recent Progress Patient-Stated? Author movement Exercise On track(2021 11:16 AM EDT) No Pankaj Mcadams Note: Try gentle movement like chair yoga, t'ai chi and qigong. [employer] Assembler [employer] Swager will send hand-outs. Use resistance bands. [employer] Assembler And Swager will request a set be mailed. Movement [...] opportunity to start with protein (cottage cheese, tunisian yogurt, protein smoothies, chicken or chicken salad [...] for sample meal ideas in the USPS [facility] Keep food log until you are seen by the dieititian. Record everything you eat or drink, include time eaten and any emotional changes that are significant. relaxation/sleep Lifestyle No Pankaj Mcadams Note: Try some meditation/relaxation apps when I wake in the night and can't go back to sleep. [employer] As[employer]er [employer] will send some to try. Tried apps but don't really like them as I like the quiet when going to sleep. [facility] 04/23 documented as of this encounter Visit Diagnoses Diagnosis Diarrhea, unspecified type documented in this encounter Care Teams Lead Game Designer Relationship Specialty Start Date End Date Justino Lucia MD PCP - General Family Medicine 10/04/21 documented as of this encounter
--- OUTSIDE RECORDS SUMMARY | 2024-07-07 13:36 | XMS_ITS | Encounter Summary ---
Author Organization [facility] [place] [address] Care Team Providers Care Stationary Steam Engineer Name Role Phone Justino Lucia MD Primary Care Provider [phone] Reason for Visit * Reason Onset Date Comments Medication Refill 10/03/2023 Encounter Details Date Type Department Care Team (Late st Contact Info) Description 10/03/2023 Refill [facility] [place] [phone] Candy Clifford MD [facility] DR [facility] [place] [address] Social History Tobacco Use Types Packs/Day Years [...] 07/22/2024 9:00 AM EST Appointment [place] [phone] Ana Ho MD [facility] [address] 07/22/2024 10:00 AM EST Laboratory Appointment Lab [address] [place] [address] 07/22/2024 11:00 AM EST Office Visit [place] [address] Ana Ho MD [facility] DR GASTROENTEROLOGY [place], [place] [phone] 09/15/2024 10:00 AM EST TH Visit (TeleHealth) Weight [place] [address] Candy Clifford MD [facility] DR [facility] [place] [address] Scheduled Procedures Name Priority Associated Diagnoses Date/Ti me EGD, UPPER GI ENDOSCOPY (WRV U 2.09) Hepatic cirrhosis, unspecified hepatic cirrhosis type, unspecified whether ascites present documented as of this encounter Goals Goal Patient Goal Type Associated Problems Recent Progress Patient-Stated? Author movement Exercise On track(2021 11:16 AM EDT) No Pankaj Mcadams Note: Try gentle movement like chair yoga, t'ai chi and qigong. Health Powder Carrier will send hand-outs. Use resistance bands. Health Powder Carrier will request a set be mailed. Movement [...] opportunity to start with protein (cottage cheese, faroese yogurt, protein smoothies, chicken or chicken salad [...] for sample meal ideas in the USPS [facility] Keep food log until you are seen by the dieititian. Record everything you eat or drink, include time eaten and any emotional changes that are significant. relaxation/sleep Lifestyle No Pankaj Mcadams Note: Try some meditation/relaxation apps when I wake in the night and can't go back to sleep. [employer] Powder Carrier will send some to try. Tried apps but don't really like them as I like the quiet when going to sleep. [facility] 04/23 documented as of this encounter Visit Diagnoses Not on filedocumented in this encounter Care Teams Stationary Steam Engineer Relationship Specialty Start Date End Date Justino Lucia MD PCP - General Family Medicine 10/04/21 documented as of this encounter
--- OUTSIDE RECORDS SUMMARY | 2024-07-07 13:36 | XMS_ITS | Encounter Summary ---
Author Organization [facility] Address [facility] [place] [address] Care Team Providers Care Relish Maker Name Role Phone Justino Lucia MD Primary Care Provider [phone] Encounter Details Date Type Department Care Team (Late st Contact Info) Description 12/23/2023 Notes [place] [address] Priscilla Gonzalez Social History Tobacco Use Types [...] encounter Progress Notes * Priscilla Gonzalez - 12/23/2023 1:44 PM EDT I faxed the application for assistance with Ozempic to [employer]. I will follow through once themanufacturer program makes a decision. documented in this encounter Plan of Treatment Upcoming Encounters Date Type Department Care Team (Late st Contact Info) Description 07/22/2024 9:00 AM EST Appointment [place] [address] Ana Ho MD [facility] [place] [address] 07/22/2024 10:00 AM EST Laboratory Appointment Lab [address] [place] [phone] 07/22/2024 11:00 AM EST Office [place] [address] Ana Ho MD [facility] [place] [address] 09/15/2024 10:00 AM EST TH Visit (TeleHealth) [place] [phone] Candy Clifford MD [facility] DR [facility] [address] Scheduled Procedures Name Priority Associated Diagnoses Date/Ti me EGD, UPPER GI ENDOSCOPY (WRV U 2.09) Hepatic cirrhosis, unspecified hepatic cirrhosis type, unspecified whether ascites present documented as of this encounter Goals Goal Patient Goal Type Associated Problems Recent Progress Patient-Stated? Author movement Exercise On track(2021 11:16 AM EDT) No Pankaj Mcadams Note: Try gentle movement like chair yoga, t'ai chi and qigong. [employer] Belt [employer] Link Assembly Supervisor will send hand-outs. Use resistance bands. [employer] Belt And Link Assembly Supervisor will request a set be mailed. Movement [...] opportunity to start with protein (cottage cheese, wolof yogurt, protein smoothies, chicken or chicken salad [...] for sample meal ideas in the USPS [facility] Keep food log until you are seen by the dieititian. Record everything you eat or drink, include time eaten and any emotional changes that are significant. relaxation/sleep Lifestyle Pankaj Russ Note: Try some meditation/relaxation apps when I wake in the night and can't go back to sleep. [employer] Assembly Supervisor will send some to try. Tried apps but don't really like them as I like the quiet when going to sleep. [facility] 04/23 documented as of this encounter Visit Diagnoses Not on filedocumented in this encounter Care Teams Relish Maker Relationship Specialty Start Date End Date Justino Lucia MD PCP - General Family Medicine 10/04/21 documented as of this encounter
--- OUTSIDE RECORDS SUMMARY | 2024-07-07 13:36 | XMS_ITS | Encounter Summary ---
Author Organization [facility] Address [facility] [place] [address] Care Team Providers Care Cardiothoracic Icu Rn Name Role Phone Justino Lucia MD Primary Care Provider Encounter Details Date Type Department Care Team (Latest Contact Info) Description 01/17/2024 8:28 AM EDT - 01/17/2024 11:59 PM EDT Hospital [place] [address] Ilya Ho MD [facility] [place] [address] Hepatic cirrhosis, unspecified hepatic cirrhosis type, unspecified whether ascites present Discharge Disposition: Home Social History Tobacco Use Types Packs/Day Years Used Date Smoking Tobacco: Former Cigarettes 3 42 Smokeless Tobacco: Never Alcohol Use Standard Drinks/Week Comments No 0 (1 standard drink = 0.6 oz pur e alcohol) Sex and Gender Information Value Date Recorded Sex Assigned at Not on file Gender Identity Not on file Sexual Orientation Not on file documented as of this encounter Medications at Time of Discharge Medication Sig Dispensed Refills Start Date End Date acetaminophen (Tylenol) 500 mg tablet Take 1,000 mg by mouth every 6 hours as needed for Pain. 11/08/2021 loperamide (Imodium A-D) 2 mg capsule take 1 capsule by mouth four times a day if needed for diarrhea MAX OF 16 MILLIGRAMS IN 24 HOURS 90 capsule 10/29/2023 psyllium husk (psyllium)Indications:D iarrhea, unspecified type Take 1 packet by mouth daily. 90 packet 3 10/01/2023 omeprazole (PriLOSEC) 40 mg Capsule, Delayed Release(E.C.) Take 40 mg by mouth daily. 11/25/2021 gabapentin (Neurontin) 300 mg Capsule Take 300 mg by mouth 3 times daily. 09/13/2021 MYRBETRIQ 25 mg Tablet Sustained Release 24 hr 07/09/2017 meTOPROLOL tartrate (LOPRESSOR) 25 mg Tablet Take 25 mg by mouth 2 times daily. furosemide (LASIX) 20 mg Tablet Take 20 mg by mouth daily. atorvastatin (LIPITOR) 20 mg Tablet Take 1 tablet by mouth daily. 30 tablet 3 02/09/2016 cholecalciferol, Vitamin D3, 50 mcg (2,000 unit) Capsule Take 1 capsule by mouth Daily. albuteroL 90 mcg/actuation HFA Aerosol Inhaler Inhale 2 puffs into the lungs every 4 hours as needed for Wheezing. Use with spacer documented as of this encounter Plan of Treatment Upcoming Encounters Date Type Department Care Team (Late st Contact Info) Description 07/22/2024 9:00 AM EST [place]ointment [place] [phone] Ilya Ho MD [facility]STR[facility] [place] [id number] 07/22/2024 10:00 AM EST Laboratory Appointment Lab [address] [place] [phone] 07/22/2024 11:00 AM EST Office [place] [phone] Ilya Ho MD [facility] [place] [address] 09/15/2024 10:00 AM EST TH Visit (TeleHealth) [place] [phone] Candy Clifford MD [facility] [address] [place] [address] Scheduled Procedures Name Priority Associated Diagnoses Date/Ti me EGD, UPPER GI ENDOSCOPY (WRV U 2.09) Hepatic cirrhosis, unspecified hepatic cirrhosis type, unspecified whether ascites present documented as of this encounter Goals Goal Patient Goal Type Associated Problems Recent Progress Patient-Stated? Author movement Exercise On track(2021 11:16 AM EDT) No Pankaj Mcadams Note: Try gentle movement like chair yoga, t'ai chi and qigong. [employer] Diver will send hand-outs. Use resistance bands. [employer] Diver will request a set be mailed. Movement [...] opportunity to start with protein (cottage cheese, gabonese yogurt, protein smoothies, chicken or chicken salad [...] for sample meal ideas in the USPS [facility] Keep food log until you are seen by the dieititian. Record everything you eat or drink, include time eaten and any emotional changes that are significant. relaxation/sleep Lifestyle No Pankaj Mcadams Note: Try some meditation/relaxation apps when I wake in the night and can't go back to sleep. [employer] D[employer] will send some to try. Tried apps but don't really like them as I like the quiet when going to sleep. [facility] 04/23 documented as of this encounter Procedures Procedure Name Priority Date/Time Associated Diagnosis Comments US ABDOMEN LIMITED HEPATOLOGY PROTOCOL Routine 01/17/2024 8:43 AM EDT Hepatic cirrhosis, unspecified hepatic cirrhosis type, unspecified whether ascites present documented in this encounter Results * US Abdomen Limited Hepatology Protocol (01/17/2024 8:43 AM EDT) WORKSTATION ID [id number] RAD Anatomical Region Laterality Modality Abdomen Ultrasound 01/17/2024 8:46 AM EDT Impressions 01/17/2024 9:01 AM EDT 1. Liver demonstrates coarsened parenchyma with capsular nodularity consistent with known cirrhosis. There is no focal hepatic lesion. 2. Gallbladder is surgically absent. Mild intra and extrahepatic biliary ductal dilation are present, within expected limits postoperatively. 3. Prominent varix noted near the left lobe. No ascites. Electronically signed by: Roque Kohler MD, [facility] ([phone]), at 01/17/2024 8:53 AM Thank you for letting us participate in the care of this patient. If you are a health care provider and have any questions regarding this report, please contact the number above. For patients who have questions, please contact the health critical care technician that requested your imaging first. ? Roque Kohler Physician Electronically Signed Final Report ?? 01/17/2024 09:01 am Narrative 01/17/2024 9:01 AM EDT Abdominal ? (Signed Final 01/17/2024 09:01 am) PATIENT INFO: ID #: ? [id number] ?: ??[birth year] (73 yrs)(F) Name: ? TELMA RICHTER ?Visit Date: 01/17/2024 08:46 am PERFORMED BY: Attending: ?Jose F GRACE, Roque Resident: ? Jared Saunders DO Performed By: ? Brayan Reyna RDMS Referred By: ?ILYA HO Location: ? [place] [facility] Protocol - Abdominal ?[id number] Limited Survey Single Organ or Quadrant - [id number] INDICATIONS: HCC screenig, history cirrhosis COMPARISON: US: Hepatology 01/01/23, CT ??Abdomen Pelvis 07/04/23 ------ LIVER: ------ Right Lobe Length: ?? 15.0 ?? cm Echogenicity/Echotexture: ?? Coarse parenchyma with capsular ? nodularity Portal Veins: ?Hepatopetal Comment: ?No focal lesion seen. Large varicosity seen at the ? lateral left lobe. GALLBLADDER: Comment: ?No pericholecystic fluid or wall hyperemia seen. BILIARY TRACT: Intrahepatic Ducts: ?? Mild dilatation Extrahepatic Ducts: ?? Normal Common Duct Size: ? 9.0 ? mm FLUID COLLECTIONS: Ascites not present on 4 quadrant evaluation. Procedure Note Roque Kohler MD - 01/17/2024 Abdominal (Signed Final 01/17/2024 09:01 am) PATIENT INFO: ID #: [id number] : [birth year] (73 yrs)(F) Name: TELMA RICHTER Visit Date: 01/17/2024 08:46 am PERFORMED BY: Attending: Roque Kohler MD Resident: Jared Saunders DO Performed By: Brayan Reyna RDMS Referred By: ILYA HO Location: [place] SERVICE(S) [facility] - Hepatology Protocol - Abdominal [id number] Limited Survey Single Organ or Quadrant - [id number] INDICATIONS: HCC screenig, history cirrhosis COMPARISON: US: Hepatology 01/01/23, CT Abdomen Pelvis 07/04/23 ------ LIVER: ------ Right Lobe Length: 15.0 cm Echogenicity/Echotexture: Coarse parenchyma with capsular nodularity Portal Veins: Hepatopetal Comment: No focal lesion seen. Large varicosity seen at the lateral left lobe. GALLBLADDER: Comment: No pericholecystic fluid or wall hyperemia seen. BILIARY TRACT: Intrahepatic Ducts: Mild dilatation Extrahepatic Ducts: Normal Common Duct Size: 9.0 mm FLUID COLLECTIONS: Ascites not present on 4 quadrant evaluation. IMPRESSION 1. Liver demonstrates coarsened parenchyma with capsular nodularity consistent with known cirrhosis. There is no focal hepatic lesion. 2. Gallbladder is surgically absent. Mild intra and extrahepatic biliary ductal dilation are present, within expected limits postoperatively. 3. Prominent varix noted near the left lobe. No ascites. Electronically signed by: Roque Kohler MD, [facility] ([phone]), at 01/17/2024 8:53 AM Thank you for letting us participate in the care of this patient. If you are a health care provider and have any questions regarding this report, please contact the number above. For patients who have questions, please contact the health critical care technician that requested your imaging first. Roque Kohler, Physician Electronically Signed Final Report 01/17/2024 09:01 am Ilya Ho MD IMG US GEN ORDERABLE S documented in this encounter Visit Diagnoses Diagnosis Hepatic cirrhosis, unspecified hepatic cirrhosis type, unspecified whether ascites present documented in this encounter Care Teams Cardiothoracic Icu Rn Relationship Specialty Start Date End Date Justino Lucia MD PCP - General Family Medicine 10/04/21 documented as of this encounter
--- OUTSIDE RECORDS SUMMARY | 2024-07-07 13:36 | XMS_ITS | Encounter Summary ---
Author Organization [facility] Address [facility] [place] [address] Care Team Providers Care Business Systems Advisor Name Role Phone Justino Lucia MD Primary Care Provider [phone] Encounter Details Date Type Department Care Team (Late Contact Info) Description 10/21/2023 [place] [address] Kizzy Hopkins RN Social History Tobacco Use Types Packs/Day Years [...] encounter Miscellaneous Notes * Telephone Encounter - Kizzy Hopkins RN - 10/21/2023 4:29 PM EST TC with patient to schedule the US (abdomen) that was ordered on 08/01/[address] Ho (6-month follow-up; due January 2024). Pt connected with the GI [facility] to coordinate appts for imaging, OV, labs. documented in this encounter Plan of Treatment Upcoming Encounters Date Type Department Care Team (Late st Contact Info) Description 07/22/2024 9:00 AM EST [place] [address] Ana Ho MD [facility] [place] [address] 07/22/2024 10:00 AM EST Laboratory Appointment Lab [address] [place] [phone] 07/22/2024 11:00 AM EST Office [place] [phone] Ana Ho MD [facility] [place] [address] 09/15/2024 10:00 AM EST TH Visit (TeleHealth) [place] [phone] Candy Clifford MD [facility] DR [facility] [place] [address] Scheduled Procedures Name Priority Associated Diagnoses Date/Ti me EGD, UPPER GI ENDOSCOPY (WRV U 2.09) Hepatic cirrhosis, unspecified hepatic cirrhosis type, unspecified whether ascites present documented as of this encounter Goals Goal Patient Goal Type Associated Problems Recent Progress Patient-Stated? Author movement Exercise On track(2021 11:16 AM EDT) No Pankaj Mcadams Note: Try gentle movement like chair yoga, t'ai chi and qigong. [employer] Fabricator Assembler will send hand-outs. Use resistance bands. [employer] Fabricator Assembler will request a set be mailed. Movement [...] opportunity to start with protein (cottage cheese, azeri yogurt, protein smoothies, chicken or chicken salad [...] for sample meal ideas in the USPS [facility] Keep food log until you are seen by the dieititian. Record everything you eat or drink, include time eaten and any emotional changes that are significant. relaxation/sleep Lifestyle No Pankaj Mcadams Note: Try some meditation/relaxation apps when I wake in the night and can't go back to sleep. [employer]ator Assembler will send some to try. Tried apps but don't really like them as I like the quiet when going to sleep. [facility] 04/23 documented as of this encounter Visit Diagnoses Not on filedocumented in this encounter Care Teams Business Systems Advisor Relationship Specialty Start Date End Date Justino Lucia MD PCP - General Family Medicine 10/04/21 documented as of this encounter
--- OUTSIDE RECORDS SUMMARY | 2024-07-07 13:36 | XMS_ITS | Encounter Summary ---
Author Organization [facility] Address [facility] [place] [address] Care Team Providers Care Window Assembler Name Role Phone Justino Lucia MD Primary Care Provider [phone] Encounter Details Date Type Department Care Team (Late st Contact Info) Description 01/16/2024 [place] [phone] Priscilla Gonzalez Social History Tobacco Use Types [...] encounter Progress Notes * Priscilla Gonzalez - 01/16/2024 9:19 AM EDT Dosage increase form for 2mg faxed over to [email or web address]. documented in this encounter Plan of Treatment Upcoming Encounters Date Type Department Care Team (Late st Contact Info) Description 07/22/2024 9:00 AM EST Appointment [place] [phone] Ana Ho MD [facility] [place] [address] 07/22/2024 10:00 AM EST Laboratory Appointment Lab [address] [place] [phone] 07/22/2024 11:00 AM EST Office [place] [phone] Ana Ho MD [facility] [address] GASTROENTEROLOGY [place], [place] [phone] 09/15/2024 10:00 AM EST TH Visit (TeleHealth) [place] [address] Candy Clifford MD [facility] [address] [facility] [address] Scheduled Procedures Name Priority Associated Diagnoses Date/Ti me EGD, UPPER GI ENDOSCOPY (WRV U 2.09) Hepatic cirrhosis, unspecified hepatic cirrhosis type, unspecified whether ascites present documented as of this encounter Goals Goal Patient Goal Type Associated Problems Recent Progress Patient-Stated? Author movement Exercise On track(2021 11:16 AM EDT) No Pankaj Mcadams Note: Try gentle movement like chair yoga, t'ai chi and qigong. [employer] Foreman will send hand-outs. Use resistance bands. [employer]man will request a set be mailed. Movement [...] opportunity to start with protein (cottage cheese, portuguese yogurt, protein smoothies, chicken or chicken salad [...] and can't go back to sleep. [employer]man will send some to try. Tried apps but don't really like them as I like the quiet when going to sleep. [facility] 04/23 documented as of this encounter Visit Diagnoses Not on filedocumented in this encounter Care Teams Window Assembler Relationship Specialty Start Date End Date Justino Lucia MD PCP - General Family Medicine 10/04/21 documented as of this encounter
--- OUTSIDE RECORDS SUMMARY | 2024-07-07 13:36 | XMS_ITS | Encounter Summary ---
Author Organization [facility] [place] [address] Care Team Providers Care Bit Tripoler Name Role Phone Justino Lucia MD Primary Care Provider [phone] Encounter Details Date Type Department Care Team (Latest Contact Info) Description 08/01/2023 4:30 PM EST TH Visit (TeleHealth) [place] [address] Ilya Ho MD [facility] [place] [address] Hepatic cirrhosis, unspecified hepatic cirrhosis type, unspecified whether ascites present (Primary Dx); Diarrhea, unspecified type Social History Tobacco Use [...] as of this encounter Progress Notes * Ilya Ho MD - 08/01/2023 4:30 PM EST Gastroenterology and Hepatology Follow Up Note Patient: Telma Richter Sex: female : 1950 Provider: Glenn Cardoso PA-C PCP: Justino Lucia MD LIVER HISTORY Lives with son and grandchildren Cirrhosis, 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 with a history of cirrhosis and portal hypertension suspected due to combination of hepatitis C (treated and cured) as well as MASH/GRIFFIN. Transferring care to me today, lastseen in Liver clinic in spring 2022. -CT A/P for HCC screening showed no new liver lesions but pulmonary nodule noted; has followed up with PCP about this, no further evaluation planned for this time -MELD labs from 07/2023 stable, all wnl. 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 -She has been on semaglutide about 8 months now and has lost almost 90 lbs since starting! -continues to have loose frequent BM usually 2-3 times a week. For last 6 months she has noted bright red blood on the toilet paper intermittently (once or twice a month); she believes she has hemorrhoids. Not taking anything for this. Per patient she had colon biopsies 2-3 years ago at [facility], which was normal. -once in a while feels bloated, but denies abdominal distention or pain. -doesn't eat well, is worried about her diarrhea so avoids a lot of meals until she gets home. Not adhering to low-salt diet. -no new confusion, no change in sleep pattern or memory loss -continues to abstain from etoh, last drink 21 years ago MEDICATIONS: Current Outpatient Medications Medication Sig Dispense Refill semaglutide (Ozempic) 2 mg/dose (8 mg/3 mL) Pen Injector INJECT 2 MILLIGRAMS SUBCUTANEOUSLY ONCE A WEEK DIRECTED 9 mL 3 semaglutide (Ozempic) 1 mg/dose (4 mg/3 mL) Pen Injector Inject 1 mg subcutaneously once a week. 3 mL 3 omeprazole (PriLOSEC) 40 mg Capsule, Delayed [...] 1551 ALLERGIES/ADR No Known Allergies PHYSICAL EXAMINATION: Tele-health PERTINENT LABS AND IMAGING: No results found [...] polyp, resection: - Fragments of tubular adenoma. Imagin07/2023 CT A/P IMPRESSION 1. Stable findings of [...] and trace ascites although none on recent CT. She also has lower extremity edema. At the moment, she is reasonably compensated, with MELD-Na score of 8. There were previous concerns of hepatic encephalopathy however not on today's visit. She continues having excellent success with weight loss on GL P-1 agonist. Plan: -psyllium daily -Imodium 2mg qAM, then BID prn -Obtain OSH colonoscopy ([facility]) to review negative colon biopsies; consider repeat flex sig to evaluate for microscopic colitis if unable to find -Continue follow-up with [facility] on semaglutide. No med adjustments necessary. -Continue maintaining alcohol sobriety indefinitely. -Repeat EGD in one year for EV screening given active metabolic risk factors. Given small GV (IGV-1) would hold on NSBB at this time -on furosemide for LE edema, continues for now. No ascites on CT -no evidence of HE today -Follow-up in 6 months with ultrasound and labs prior 45 minutes spent in chart review, tele-health time and coordination of care with the patient today. lIya Ho MD Gastroenterology and Hepatology 07/31/2023 5:08 PM Pager # [phone] documented in this encounter Plan of Treatment Upcoming Encounters Date Type Department Care Team (Late st Contact Info) Description 07/22/2024 9:00 AM EST Appointment [place] [phone] Ilya Ho MD [facility] [place] [address] 07/22/2024 10:00 AM EST Laboratory Appointment Lab [address] [place] [address] 07/22/2024 11:00 AM EST Office [place] [address] Ilya Ho MD [facility] [place] [address] 09/15/2024 10:00 AM EST TH Visit (TeleHealth) [place] [address] Candy Clifford MD [facility] DR [facility] [address] Scheduled Procedures Name Priority Associated Diagnoses Date/Ti me EGD, UPPER GI ENDOSCOPY (WRV U 2.09) Hepatic cirrhosis, unspecified hepatic cirrhosis type, unspecified whether ascites present documented as of this encounter Goals Goal Patient Goal Type Associated Problems Recent Progress Patient-Stated? Author movement Exercise On track(2021 11:16 AM EDT) No Pankaj Mcadams Note: Try gentle movement like chair yoga, t'ai chi and qigong. Health Gear Finisher will send hand-outs. Use resistance bands. Health Gear Finisher will request a set be mailed. Movement [...] opportunity to start with protein (cottage cheese, mauritian yogurt, protein smoothies, chicken or chicken salad [...] for sample meal ideas in the USPS [facility] Keep food log until you are seen by the dieititian. Record everything you eat or drink, include time eaten and any emotional changes that are significant. relaxation/sleep Lifestyle No Pankaj Mcadams Note: Try some meditation/relaxation apps when I wake in the night and can't go back to sleep. Health Gear Finisher will send some to try. Tried apps but don't really like them as I like the quiet when going to sleep. [facility] 8/22 documented as of this encounter Results * Comprehensive metabolic panel (non-fasting) (01/17/2024 [...] Narrative Resulting Agency Comment Spec In Lab Ilya Ho MD CHEMISTRY ORDERABLES Performing Organization Address [facility] de Phone Number [facility] [address] * (ABNORMAL) Prothrombin Time (01/17/2024 9:10 AM EDT) Prothrombin Time 13.4(H) 9.4 - 12.5 sec [facility] International Normalization Ratio 1.2 [facility] Comment: An INR <2.0 indicates adequate [...] Narrative Resulting Agency Comment Spec In Lab Ilya Ho MD HEMATOLOGY ORDERABLE S Performing Organization Address [facility] Co de Phone Number [facility] [place] [address] * US Abdomen Limited Hepatology Protocol (01/17/2024 8:43 AM EDT) WORKSTATION ID [id number] RAD Anatomical Region Laterality Modality Abdomen Ultrasound [...] ascites. Electronically signed by: Roque Kohler MD, [facility] ([phone]), at 01/17/2024 8:53 AM Thank you for letting us participate in the care of this patient. If you are a health care provider and have any questions regarding this report, please contact the number above. For patients who have questions, please contact the health critical care paramedic that requested your imaging first. ? Roque Kohler, Physician Electronically Signed Final Report ?? 01/17/2024 09:01 am Narrative 01/17/2024 9:01 AM EDT Abdominal ? (Signed Final 01/17/2024 09:01 am) PATIENT INFO: ID #: ? [id number] ?: ??[birth year] (73 yrs)(F) Name: ? TELMA Olsen GRIFFIN ?Visit Date: 01/17/2024 08:46 am PERFORMED BY: Attending: ?Roque Kohler MD Resident: ? Jared Saunders DO Performed By: ? Brayan Reyna RDMS Referred By: ?ILYA HO Location: ? [place] SERVICE(S) PROVIDED: [id number] - Hepatology Protocol - Abdominal ?02004 Limited Survey Single Organ or Quadrant - [id number] INDICATIONS: HCC screenig, history cirrhosis COMPARISON: US: [...] 01/17/2024 09:01 am) PATIENT INFO: ID #: [id number] : [birth year] (73 yrs)(F) Name: TELMA RICHTER Visit Date: 01/17/2024 08:46 am PERFORMED BY: Attending: Roque Kohler MD Resident: Jared Saunders DO Performed By: Brayan Reyna RDMS Referred By: ILYA HO Location: [place] SERVICE(S) PROVIDED: [facility] - Hepatology Protocol - Abdominal 08762 Limited Survey Single Organ or Quadrant - [id number] INDICATIONS: HCC screenig, history cirrhosis COMPARISON: US: [...] ascites. Electronically signed by: Roque Kohler MD, [facility] ([phone]), at 01/17/2024 8:53 AM Thank you for letting us participate in the care of this patient. If you are a health care provider and have any questions regarding this report, please contact the number above. For patients who have questions, please contact the health critical care paramedic that requested your imaging first. Roque Kohler, Physician Electronically Signed Final Report 01/17/2024 09:01 am Ilya Ho MD IMG US GEN ORDERABLE S documented in this encounter Visit Diagnoses Diagnosis Hepatic cirrhosis, unspecified hepatic cirrhosis type, unspecified whether ascites present- Primary Diarrhea, unspecified type Hepatic cirrhosis, unspecified hepatic cirrhosis type, unspecified whether ascites present documented in this encounter Care Teams Bit Tripoler Relationship Specialty Start Date End Date Justino Lucia MD PCP - General Family Medicine 10/04/21 documented as of this encounter
--- OUTSIDE RECORDS SUMMARY | 2024-07-07 13:36 | XMS_ITS | Encounter Summary ---
[facility] [address] Care Team Providers Care Senior Front End Engineer Name Role Phone Justino Lucia MD Primary Care Provider [phone] Encounter Details Date Type Department Care Team ([facility] Contact Info) Description 02/18/2024 [place] [address] Huong Gerber, [facility] Social History Tobacco Use Types [...] as of this encounter Progress Notes * Huong Gerber [facility] - 02/18/2024 9:58 AM EDT [facility] Medication Assistance Program (MAP) -Date Prescription(s) Received: 10/06/2023 -Date Medication(s) received: 02/14/2024 -Medication(s) Received: Ozempic 8mg/3ml -Quantity received: 12ml -Automobile Spring Repairer: Destinee Nordisk -Status of prescription: shipped -Date Mailed/Picked up: 02/26/2024 -Address Mailed to: [address] [place] [address], [address] -Tracking No.: [id number] documented in this encounter Plan of Treatment Upcoming Encounters Date Type Department Care Team (Late st Contact Info) Description 07/22/2024 9:00 AM EST [place] [phone] Ana Ho MD [facility] [place] [address] 07/22/2024 10:00 AM EST Laboratory Appointment Lab [address] [place] [address] 07/22/2024 11:00 AM EST Office [place] [phone] Ana Ho MD [facility] GASTROENTEROLOGY [place], [place] [phone] 09/15/2024 10:00 AM EST TH Visit (TeleHealth) [place] [address] Candy Clifford MD [facility] DR [facility] [address] Scheduled Procedures Name Priority Associated Diagnoses Date/Ti me EGD, UPPER GI ENDOSCOPY (WRV U 2.09) Hepatic cirrhosis, unspecified hepatic cirrhosis type, unspecified whether ascites present documented as of this encounter Goals Goal Patient Goal Type Associated Problems Recent Progress Patient-Stated? Author movement Exercise On track(2021 11:16 AM EDT) No Pankaj Mcadams Note: Try gentle movement like chair yoga, t'ai chi and qigong. Health Community Associate will send hand-outs. Use resistance bands. Health Community Associate will request a set be mailed. Movement [...] opportunity to start with protein (cottage cheese, swedish yogurt, protein smoothies, chicken or chicken salad [...] for sample meal ideas in the USPS [facility] Keep food log until you are seen by the dieititian. Record everything you eat or drink, include time eaten and any emotional changes that are significant. relaxation/sleep Lifestyle No Jonathan-Pankaj Patrick Note: Try some meditation/relaxation apps when I wake in the night and can't go back to sleep. Health Community Associate will send some to try. Tried apps but don't really like them as I like the quiet when going to sleep. [facility] 04/23 documented as of this encounter Visit Diagnoses Not on filedocumented in this encounter Care Teams Senior Front End Engineer Relationship Specialty Start Date End Date Justino Lucia MD PCP - General Family Medicine 10/04/21 documented as of this encounter
--- OUTSIDE RECORDS SUMMARY | 2024-07-07 13:36 | XMS_ITS | Encounter Summary ---
Author Organization [facility] [place] [address] Care Team Providers Care Raw Finish Mill Operator Name Role Phone Justino Lucia MD Primary Care Provider [phone] Reason for Visit * Reason Comments Medication Refill Encounter Details Date Type Department Care Team (Late st Contact Info) Description 10/28/2023 Refill [place] [phone] Ana Ho MD [facility] [place] [address] Social History Tobacco Use Types Packs/Day Years [...] Encounters Date Type Department Care Team (Late Contact Info) Description 07/22/2024 9:00 AM EST Appointment [place] [phone] Ana Ho MD [facility] [place] [address] 07/22/2024 10:00 AM EST Laboratory Appointment Lab [address] [place] [address] 07/22/2024 11:00 AM EST Office Visit [place] [address] Ana Ho MD [facility] [place] [address] 09/15/2024 10:00 AM EST TH Visit (TeleHealth) Weight [place] [address] Candy Clifford MD [facility] DR [facility] [address] Scheduled Procedures Name Priority Associated Diagnoses Date/Ti me EGD, UPPER GI ENDOSCOPY (WRV U 2.09) Hepatic cirrhosis, unspecified hepatic cirrhosis type, unspecified whether ascites present documented as of this encounter Goals Goal Patient Goal Type Associated Problems Recent Progress Patient-Stated? Author movement Exercise On track(2021 11:16 AM EDT) No Pankaj Mcadams Note: Try gentle movement like chair yoga, t'ai chi and qigong. Health Associate Director Financial Aid will send hand-outs. Use resistance bands. Health Associate Director Financial Aid will request a set be mailed. Movement [...] opportunity to start with protein (cottage cheese, australian yogurt, protein smoothies, chicken or chicken salad [...] for sample meal ideas in the USPS [facility] Keep food log until you are seen by the dieititian. Record everything you eat or drink, include time eaten and any emotional changes that are significant. relaxation/sleep Lifestyle No Pankaj Mcadams Note: Try some meditation/relaxation apps when I wake in the night and can't go back to sleep. Health Associate Director Financial Aid will send some to try. Tried apps but don't really like them as I like the quiet when going to sleep. [facility] 04/23 documented as of this encounter Visit Diagnoses Not on filedocumented in this encounter Care Teams Raw Finish Mill Operator Relationship Specialty Start Date End Date Justino Lucia MD PCP - General Family Medicine 10/04/21 documented as of this encounter
--- OUTSIDE RECORDS SUMMARY | 2024-07-07 13:36 | XMS_ITS | Encounter Summary ---
Author Organization [facility] [place] [address] Care Team Providers Care Cement Patcher Name Role Phone Justino Lucia MD Primary Care Provider [phone] Encounter Details Date Type Department Care Team (Late st Contact Info) Description 08/27/2023 Telephone [place] [phone] Donna Almonte Social History Tobacco Use Types Packs/Day Years [...] encounter Miscellaneous Notes * Telephone Encounter - Donna Almonte - 08/27/2023 10:50 AM EST Spoke with patient and declined to schedule Maintain ACT at this time per Dr. Adams dispo note on 07/23/2023 in Weight and Wellness. documented in this encounter Plan of Treatment Upcoming Encounters Date Type Department Care Team (Late st Contact Info) Description 07/22/2024 9:00 AM [place] [phone] Ana Ho MD [facility] [place] [address] 07/22/2024 10:00 AM EST Laboratory Appointment Lab [address] [place] [phone] 07/22/2024 11:00 AM EST Office [place] [phone] Ana Ho MD [facility] [place] [address] 09/15/2024 10:00 AM EST TH Visit (TeleHealth) [place] [phone] Candy Clifford MD [facility] DR [facility] [address] Scheduled Procedures Name Priority Associated Diagnoses Date/Ti me EGD, UPPER GI ENDOSCOPY (WRV U 2.09) Hepatic cirrhosis, unspecified hepatic cirrhosis type, unspecified whether ascites present documented as of this encounter Goals Goal Patient Goal Type Associated Problems Recent Progress Patient-Stated? Author movement Exercise On track(2021 11:16 AM EDT) No Pankaj Mcadams Note: Try gentle movement like chair yoga, t'ai chi and qigong. Health Archivist will send hand-outs. Use resistance bands. Health Archivist will request a set be mailed. Movement Exercise On track(2021 11:16 AM EDT) No Pankaj Mcadams Note: Look around town, senior center, gyms, for a class to participate in, bone builders or gentle stretching. Nutrition Lifestyle No Candy Clifford MD Note: Nutrition Goals updated today: 4/11/23 TF 1. Focus on reaching adequate protein intake - aim for 60-80 grams (handout attached in after visit summary) 2. Consider the 3 eating events per day to be an opportunity to start with protein (cottage cheese, belizean yogurt, protein smoothies, chicken or chicken salad [...] for sample meal ideas in the USPS [facility] Keep food log until you are seen by the dieititian. Record everything you eat or drink, include time eaten and any emotional changes that are significant. relaxation/sleep Lifestyle Pankaj Russ Note: Try some meditation/relaxation apps when I wake in the night and can't go back to sleep. Health Archivist will send some to try. Tried apps but don't really like them as I like the quiet when going to sleep. [facility] 04/23 documented as of this encounter Visit Diagnoses Not on filedocumented in this encounter Care Teams Cement Patcher Relationship Specialty Start Date End Date Justino Lucia MD PCP - General Family Medicine 10/04/21 documented as of this encounter
--- OUTSIDE RECORDS SUMMARY | 2024-07-07 13:36 | XMS_ITS | Encounter Summary ---
Author Organization [facility] [place] [address] Care Team Providers Care Utility Bill Collector Name Role Phone Justino Lucia MD Primary Care Provider Reason for Visit * Reason Comments Medication Refill Encounter Details Date Type Department Care Team (Late st Contact Info) Description 08/03/2023 Refill [place] [phone] Candy Clifford MD [facility] DR [facility] [address] Insulin resistance; Prediabetes Social History Tobacco Use Types Packs/Day Years [...] 07/22/2024 9:00 AM EST [place] [address] Ana Ho MD [facility] [place] [address] 07/22/2024 10:00 AM EST Laboratory Appointment Lab [address] [place] [address] 07/22/2024 11:00 AM EST Office [place] [address] Ana Ho MD [facility] [place] [address] 09/15/2024 10:00 AM EST TH Visit (TeleHealth) [place] [address] Candy Clifford MD [facility] DR [facility] [place] [address] Scheduled Procedures Name Priority Associated Diagnoses Date/Ti me EGD, UPPER GI ENDOSCOPY (WRV U 2.09) Hepatic cirrhosis, unspecified hepatic cirrhosis type, unspecified whether ascites present documented as of this encounter Goals Goal Patient Goal Type Associated Problems Recent Progress Patient-Stated? Author movement Exercise On track(2021 11:16 AM EDT) No Pankaj Mcadams Note: Try gentle movement like chair yoga, t'ai chi and qigong. Health Learning Support Teacher will send hand-outs. Use resistance bands. Health Learning Support Teacher will request a set be mailed. Movement [...] opportunity to start with protein (cottage cheese, samoan yogurt, protein smoothies, chicken or chicken salad [...] for sample meal ideas in the USPS [facility] Keep food log until you are seen by the dieititian. Record everything you eat or drink, include time eaten and any emotional changes that are significant. relaxation/sleep Lifestyle No Pankaj Mcadams Note: Try some meditation/relaxation apps when I wake in the night and can't go back to sleep. Health Learning Support Teacher will send some to try. Tried apps but don't really like them as I like the quiet when going to sleep. [facility] 04/23 documented as of this encounter Visit Diagnoses Diagnosis Insulin resistance Dysmetabolic Syndrome X Prediabetes Other abnormal glucose documented in this encounter Care Teams Utility Bill Collector Relationship Specialty Start Date End Date Justino Lucia MD PCP - General Family Medicine 10/04/21 documented as of this encounter
--- OUTSIDE RECORDS SUMMARY | 2024-07-07 13:36 | XMS_ITS | Encounter Summary ---
Author Organization [facility] [place] [address] Care Team Providers Care Customer Solutions Teammate Name Role Phone Justino Lucia MD Primary Care Provider Encounter Details Date Type Department Care Team (Latest Contact Info) Description 01/17/2024 Travel Social History Tobacco Use Types Packs/Day [...] 07/22/2024 9:00 AM EST [place]ointment [place] [phone] Ana Ho MD [facility] [place] [address] 07/22/2024 10:00 AM EST Laboratory Appointment Lab [address] [place] [phone] 07/22/2024 11:00 AM EST Office Visit [place] [phone] Ana Ho MD [facility] [place] [address] 09/15/2024 10:00 AM EST TH Visit (TeleHealth) Weight and Wellness at [facility] [place] [address] Candy Clifford MD [facility] [address] [place] [address] Scheduled Procedures Name Priority Associated Diagnoses Date/Ti me EGD, UPPER GI ENDOSCOPY (WRV U 2.09) Hepatic cirrhosis, unspecified hepatic cirrhosis type, unspecified whether ascites present documented as of this encounter Goals Goal Patient Goal Type Associated Problems Recent Progress Patient-Stated? Author movement Exercise On track(2021 11:16 AM EDT) No Pankaj Mcadams Note: Try gentle movement like chair yoga, t'ai chi and qigong. Health Woodworking Machine Setter will send hand-outs. Use resistance bands. Health Woodworking Machine Setter will request a set be mailed. Movement [...] for sample meal ideas in the [employer] [facility] Keep food log until you are seen by the dieititian. Record everything you eat or drink, include time eaten and any emotional changes that are significant. relaxation/sleep Lifestyle Pankaj Russ Note: Try some meditation/relaxation apps when I wake in the night and can't go back to sleep. Health Woodworking Machine Setter will send some to try. Tried apps but don't really like them as I like the quiet when going to sleep. [facility] 04/23 documented as of this encounter Visit Diagnoses Not on filedocumented in this encounter Care Teams Customer Solutions Teammate Relationship Specialty Start Date End Date Justino Lucia MD PCP - General Family Medicine 10/04/21 documented as of this encounter
--- OUTSIDE RECORDS SUMMARY | 2024-07-07 13:36 | XMS_ITS | Encounter Summary ---
Author Organization [facility] [place] [address] Care Team Providers Care Assistant Director Of Security Name Role Phone Justino Lucia MD Primary Care Provider [phone] Reason for Referral * Diagnostic Test (Routine) - Closed Specialty Diagnoses / Procedures Referred By Contac t Referred To Contact Radiology Diagnoses Hepatic cirrhosis, unspecified hepatic cirrhosis type, unspecified whether ascites present Procedures CT Abdomen w Contrast Glenn Cardoso PA [address] [place] [address] [facility] [place] [address] Referral ID Status Reason Start Date Expiration Date V isits Requested Visits Authorized [id number] Closed Specialty Service Requested 01/01/2023 07/04/2024 1 1 Reason for Visit * Diagnostic Test (Routine) - Closed Specialty Diagnoses / Procedures Referred By Contac Referred To Contact Radiology Diagnoses Hepatic cirrhosis, unspecified hepatic cirrhosis type, unspecified whether ascites present Procedures CT Abdomen w Contrast Glenn Cardoso PA [address] [place] [address] [facility] [place] [address] Referral ID Status Reason Start Date Expiration Date V isits Requested Visits Authorized [id number] Closed Specialty Service Requested 01/01/2023 07/04/2024 1 1 Encounter Details Date Type Department Care Team (Latest Contact Info) Description 07/04/2023 7:58 AM EDT - 07/04/2023 11:59 PM EDT Hospital Encounter CT [facility] [place] [address] Rea Hickey MD [facility] [place] [address] Hepatic cirrhosis, unspecified hepatic cirrhosis type, unspecified [...] 6 hours as needed for Pain. 11/08/2021 omeprazole (PriLOSEC) 40 mg Capsule, Delayed Release(E.C.) [...] as needed for Wheezing. Use with spacer semaglutide (Ozempic) 1 mg/dose (4 mg/3 mL) Pen InjectorIndications:In sulin resistance,Prediabetes Inject 1 mg subcutaneously once a week. 3 mL 3 04/17/2023 10/03/2023 Ozempic 2 mg/dose (8 mg/3 mL) Pen InjectorIndications:In sulin resistance,Prediabetes ,Hyperlipidemia, unspecified hyperlipidemia type,NAFLD (nonalcoholic fatty liver disease) INJECT 2 MILLIGRAMS SUBCUTANEOUSLY ONCE A WEEK DIRECTED 3 mL 3 03/31/2023 07/23/2023 documented as of this encounter Plan of Treatment Upcoming Encounters Date Type Department Care Team (Late st Contact Info) Description 07/22/2024 9:00 AM EST [place]ointment [place] [phone] Ana Ho MD [facility] [place] [address] 07/22/2024 10:00 AM EST Laboratory Appointment Lab [address] [place] [phone] 07/22/2024 11:00 AM EST Office [place] [phone] Ana Ho MD [facility] [place] [address] 09/15/2024 10:00 AM EST TH Visit (TeleHealth) [place] [phone] Candy Clifford MD [facility] DR [address] [facility] [address] Scheduled Procedures Name Priority Associated Diagnoses Date/Ti me EGD, UPPER GI ENDOSCOPY (WRV U 2.09) Hepatic cirrhosis, unspecified hepatic cirrhosis type, unspecified whether ascites present documented as of this encounter Goals Goal Patient Goal Type Associated Problems Recent Progress Patient-Stated? Author movement Exercise On track(2021 11:16 AM EDT) No Pankaj Mcadams Note: Try gentle movement like chair yoga, t'ai chi and qigong. Health Cell Assembly Pinner will send hand-outs. Use resistance bands. Health Cell Assembly Pinner will request a set be mailed. Movement [...] opportunity to start with protein (cottage cheese, sami yogurt, protein smoothies, chicken or chicken salad [...] for sample meal ideas in the [employer]PS [facility] Keep food log until you are seen by the dieititian. Record everything you eat or drink, include time eaten and any emotional changes that are significant. relaxation/sleep Lifestyle No Pankaj Mcadams Note: Try some meditation/relaxation apps when I wake in the night and can't go back to sleep. Health Cell Assembly Pinner will send some to try. Tried apps but don't really like them as I like the quiet when going to sleep. [facility] 04/23 documented as of this encounter Procedures Procedure Name Priority Date/Time Associated Diagnosis Comments CT ABDOMEN W CONTRAST Routine 07/04/2023 8:56 AM EDT Hepatic cirrhosis, unspecified hepatic cirrhosis type, unspecified whether ascites present documented in this encounter Results * (ABNORMAL) CT Abdomen w Contrast (07/04/2023 8:56 AM EDT) Anatomical Region Laterality Modality Abdomen Computed Tomogra phy Impressions 07/04/2023 3:08 PM EDT 1. ??Stable findings of cirrhosis without suspicious liver lesions. 2. 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 3. ??Mild, nonspecific induration of the perinephric fat, left greater than right, and increased since the prior CT. No discrete retroperitoneal mass. 4. ??Prior cholecystectomy. 5. ??Unexpected finding: Possible small right pulmonary nodule at the margin of the study. Consider CT chest evaluation, also to further evaluate stable, peripheral intralobular septal thickening. Thank you for letting us participate in the care of this patient. ??If you are a health care provider and have any questions regarding this report, please contact the number below. ??For patients who have questions please contact the health home health care provider that requested your imaging first. ? Electronically signed by: Lashawn Hendrickson MD, [facility] ??([phone]), at 07/04/2023 3:08 PM Narrative 07/04/2023 3:08 PM EDT EXAMINATION: CT ABDOMEN W CONTRAST CLINICAL HISTORY: Cirrhosis Cirrhosis with portal HTN, screen for HCC in morbid obesity multiphasic liver protocol TECHNIQUE: Helical CT of the abdomen following the intravenous administration of contrast. 120 Omnipaque 350. Oral contrast was not administered. COMPARISON: CT 05/14/2022 FINDINGS: Lower chest: Similar, mild peripheral intralobular septal thickening. Possible 3 mm nodule in the right middle lobe at the margin of the study, see series 302 image 1. Liver: Liver is nodular in contour. No hypervascular or hypoenhancing liver lesions are seen. Bile ducts: Minimal intrahepatic biliary dilation is similar post cholecystectomy. Gallbladder: Surgically absent. Pancreas: Normal attenuation without ductal dilatation. Spleen: Normal. Adrenals: The left adrenal gland is displaced inferiorly by a large perisplenic and perigastric varices. Kidneys: Kidneys enhance symmetrically. No stones are seen. 4 cm right renal cyst is similar. Compared to the prior CT, there is a slight increase in mild perinephric fat induration, left greater than right. Vasculature: The portal vein is patent and normal in caliber. The large venous varicosity in the left upper abdomen is likely a splenorenal venous shunt without thrombosis. Lymph Nodes: No enlarged lymph nodes. Bowel: No acute abnormalities. There is a ventral hernia containing a portion of the transverse colon, as before without acute inflammation. Peritoneum and retroperitoneum: No free fluid or loculated fluid collection. No pneumoperitoneum. No mesenteric inflammation. Abdominal wall: Broad necked ventral hernia containing a portion of the transverse colon and mesentery is noninflamed. Osseous structures: Multilevel discogenic degenerative changes are present within the imaged spine. No obvious acute abnormalities. Resulting Agency Comment Unexpected Finding Rea Hickey MD IMG CT ORDERABLES documented in this encounter Visit Diagnoses Diagnosis Hepatic cirrhosis, unspecified hepatic cirrhosis type, unspecified whether ascites present documented in this encounter Administered Medications Inactive Administered Medications - up to 3 most recent administrations Medication Order MAR Action Action Date Dose Rate Site iohexoL (Omnipaque) (350 mg/mL) solution 0-200 mL 0-200 mL, Intravenous, ONCE PRN, 1 dose, Starting on Tanja 07/04/23 at 0849, Until Tanja 07/04/23 at 0849, Per Protocol, Warning Vesicant/Irritant Medication , Radiology Contrast, Routine Given 07/04/2023 8:49 AM EDT 120 mLs documented in this encounter Care Teams Assistant Director Of Security Relationship Specialty Start Date End Date Justino Lucia MD PCP - General Family Medicine 10/04/21 documented as of this encounter
--- OUTSIDE RECORDS SUMMARY | 2024-07-07 13:36 | XMS_ITS | Encounter Summary ---
Author Organization [facility] [place] [address] Care Team Providers Care Drupal Programmer Name Role Phone Justino Lucia MD Primary Care Provider [phone] Encounter Details Date Type Department Care Team (Late st Contact Info) Description 10/01/2023 Telephone [place] [address] [facility] [address] [facility] [address] Social History Tobacco Use Types Packs/Day Years [...] encounter Miscellaneous Notes * Telephone Encounter - Laureen Morrell - 10/02/2023 2:37 PM EST Patient calling back to let nurse know that insurance requested the provider send an authorization request for Carolyn. * Telephone Encounter - Consuelo Harris RN - 10/02/2023 10:33 AM EST We do not have the denial yet but I suspect that it is because you do not have T2DM. I recommend that she call her insurance co and ask which they would approve - Wegovy, Saxenda, or Zepbound for weight loss. Call me back sooner rather than later so we can try to get her approved since she still has some Ozempic 1 mg left. * Telephone Encounter - Prema Zafar - 10/01/2023 3:35 PM EST Message: Patient called stating her prescription for Ozempic is not being covered. Please call to advise. Ask caller their first and last name and relationship to the patient: Patient Best time to call back: anytime Ok to leave a message: yes Ok to send [facility] message: yes Offered Appointment: N/A Message: N/A Call made to pocket secretary assembler or nurse Y/N N/A Pager: Y/N N/A documented in this encounter Plan of Treatment Upcoming Encounters Date Type Department Care Team (Late st Contact Info) Description 07/22/2024 9:00 AM EST Appoint[place] [address] [facility] [place] [address] 07/22/2024 10:00 AM EST Laboratory Appointment Lab [address] [place] [phone] 07/22/2024 11:00 AM EST Office [place] [phone] [facility] [place] [address] 09/15/2024 10:00 AM EST TH Visit (TeleHealth) [place] [address] [facility] [address] [facility] [address] Scheduled Procedures Name Priority Associated Diagnoses Date/Ti me EGD, UPPER GI ENDOSCOPY (WRV U 2.09) Hepatic cirrhosis, unspecified hepatic cirrhosis type, unspecified whether ascites present documented as of this encounter Goals Goal Patient Goal Type Associated Problems Recent Progress Patient-Stated? Author movement Exercise On track(2021 11:16 AM EDT) No Pankaj Mcadams Note: Try gentle movement like chair yoga, t'ai chi and qigong. Health Heating Plant Superintendent will send hand-outs. Use resistance bands. Health Heating Plant Superintendent will request a set be mailed. Movement [...] and can't go back to sleep. Health Heating Plant Superintendent will send some to try. Tried apps but don't really like them as I like the quiet when going to sleep. [facility] 04/23 documented as of this encounter Visit Diagnoses Not on filedocumented in this encounter Care Teams Drupal Programmer Relationship Specialty Start Date End Date Justino Lucia MD PCP - General Family Medicine 10/04/21 documented as of this encounter
--- OUTSIDE RECORDS SUMMARY | 2024-07-07 13:36 | XMS_ITS | Encounter Summary ---
Author Organization [facility] [place] [address] Care Team Providers Care Appeals Reviewer Veteran Name Role Phone Justino Lucia MD Primary Care Provider [phone] Encounter Details Date Type Department Care Team (Latest Contact Info) Description 07/04/2023 7:45 AM EDT Laboratory Appointment Lab [address] [place] [phone] Hepatic cirrhosis, unspecified hepatic cirrhosis type, unspecified [...] 07/22/2024 9:00 AM EST [place] [phone] Ana Ho MD [facility] [place] [address] 07/22/2024 10:00 AM EST Laboratory Appointment Lab [address] [place] [phone] 07/22/2024 11:00 AM EST Office [place] [address] Ana Ho MD [facility] [place] [address] 09/15/2024 10:00 AM EST TH Visit (TeleHealth) [place] [phone] Candy Clifford MD [facility] [place] [address] Scheduled Procedures Name Priority Associated Diagnoses Date/Ti me EGD, UPPER GI ENDOSCOPY (WRV U 2.09) Hepatic cirrhosis, unspecified hepatic cirrhosis type, unspecified whether ascites present documented as of this encounter Goals Goal Patient Goal Type Associated Problems Recent Progress Patient-Stated? Author movement Exercise On track(2021 11:16 AM EDT) No Pankaj Mcadams Note: Try gentle movement like chair yoga, t'ai chi and qigong. Health Documentation Billing Clerk will send hand-outs. Use resistance bands. Health Documentation Billing Clerk will request a set be mailed. Movement [...] opportunity to start with protein (cottage cheese, bengali yogurt, protein smoothies, chicken or chicken salad [...] for sample meal ideas in the USPS [facility] Keep food log until you are seen by the dieititian. Record everything you eat or drink, include time eaten and any emotional changes that are significant. relaxation/sleep Lifestyle No Pankaj Mcadams Note: Try some meditation/relaxation apps when I wake in the night and can't go back to sleep. Health Documentation Billing Clerk will send some to try. Tried apps but don't really like them as I like the quiet when going to sleep. [facility] 04/23 documented as of this encounter Procedures Procedure Name Priority Date/Time Associated Diagnosis Comments HEMOGRAM Routine 07/04/2023 7:39 AM EDT Hepatic cirrhosis, unspecified hepatic cirrhosis type, unspecified whether ascites present DIFFERENTIAL, AUTOMATED Routine 07/04/2023 7:39 AM EDT Hepatic cirrhosis, unspecified hepatic cirrhosis type, unspecified whether ascites present AFP TUMOR MARKER Routine 07/04/2023 7:39 AM EDT Hepatic cirrhosis, unspecified hepatic cirrhosis type, unspecified whether ascites present PROTHROMBIN TIME Routine 07/04/2023 7:39 AM EDT Hepatic cirrhosis, unspecified hepatic cirrhosis type, unspecified whether ascites present CBC (WITH DIFF) Routine 07/04/2023 7:39 AM EDT Hepatic cirrhosis, unspecified hepatic cirrhosis type, unspecified whether ascites present COMPREHENSIVE METABOLIC PANEL Routine 07/04/2023 7:39 AM EDT Hepatic cirrhosis, unspecified hepatic cirrhosis type, unspecified whether ascites present documented in this encounter Results * Differential, Automated (07/04/2023 7:39 AM EDT) Neutrophil % 50.6 % [facility] Neutrophil Absolute 2.21 1.70 - 6.10 x10(3)/[facility] Lymph % 34.3 % [facility] Lymphocytes Abs 1.5 0.9 - 3.2 x10(3)/[facility] Monocyte % 10.8 % [facility] Monocyte Abs 0.5 0.3 - 0.9 x10(3)/[facility] Eos % 3.2 % [facility] Eosinophils Abs 0.1 0.0 - 0.4 x10(3)/[facility] Basophil % 0.9 % [facility] Baso Absolute 0.0 0.0 - 0.1 x10(3)/[facility] Immature Gran % 0.20 % [facility] Comment: Immature granulocytes(IG's)percentage and absolute count will include metamyelocytes, myelocytes, and promyelocytes. Blood smears from CBCs yielding IG's will be scanned manually for concordance. If this scan disagrees with the automated IG or if promyelocytes are noted, a manual differential will be performed. Immature Gran Absolute 0.01 0.00 - 0.04 x10(3)/[facility] Blood 07/04/2023 7:39 AM EDT 07/04/2023 7:43 AM EDT Narrative Resulting Agency Comment Spec In Lab Glenn CHOWDHURY HEMATOLOGY ORDERABLE S [facility] [address] * (ABNORMAL) Hemogram (07/04/2023 7:39 AM EDT) White Blood Cell 4.4 4.0 - 9.5 x10(3)/mc L [facility] Red Blood Cell 4.64 4.00 - 5.21 x10(6)/mc L [facility] Hemoglobin 14.2 11.7 - 15.5 g/dL [facility] Hematocrit 42.4 35.7 - 45.8 % [facility] Mean Cell Volume 91.4 82.6 - 94.4 fL [facility] Mean Cell Hemoglobin 30.6 27.1 - 32.0 pg [facility] Mean Cell Hemoglobin Concentration 33.5 31.7 - 35.0 g/dL [facility] Platelet 199 145 - 357 x10(3)/mc L [facility] RDW Standard Deviation 46.3(H) 37.0 - 46.0 fL [facility] RDW coefficient of variation 13.7 11.5 - 14.1 % [facility] Mean Platelet Volume 9.5 7.6 - 12.9 fL [facility] NRBC% auto 0.0 % [facility] NRBC Absolute 0.000 0.000 - 0.000 x10(3)/mc L [facility] Blood 07/04/2023 7:39 AM EDT 07/04/2023 7:43 AM EDT Narrative Resulting Agency Comment Spec In Lab Glenn CHOWDHURY HEMATOLOGY ORDERABLE S [facility] [place] [address] * Comprehensive metabolic panel (non-fasting) (07/04/2023 7:39 AM EDT) Glucose 92 65 - 199 mg/dL [facility] Comment:Diabetes: >=200 mg/d L plus symptoms Blood Urea Nitrogen 10 8 - 18 mg/dL [facility] Creatinine 0.77 0.70 - 1.20 mg/dL [facility] Sodium 142 135 - 145 mmol/L [facility] Potassium 3.8 3.5 - 5.0 mmol/L [facility] Comment: Please note: ??Patients with WBC >100,000 may have falsely elevated Potassium levels. ??For accurate Potassium quantification in these patients send serum separator tube (gold top) for subsequent determinations. ??Contact the Clinical Chemistry Laboratory if there are any questions. Chloride 103 98 - 107 mmol/L [facility] Carbon Dioxide 30 22 - 31 mmol/L [facility] Anion Gap 9 5 - 15 mmol/L [facility] Calcium 8.8 8.5 - 10.5 mg/dL [facility] Protein, Total 6.5 6.1 - 8.0 g/dL [facility] Albumin 3.4 3.2 - 5.2 g/dL [facility] Aspartate Aminotransferase 25 0 - 30 unit/L [facility] Alanine Aminotransferase 15 0 - 30 unit/L [facility] Alkaline Phosphatase 84 35 - 105 unit/L [facility] Bilirubin, Total 1.0 0.2 - 1.3 mg/dL [facility] Est Glomerular Filtration Rate 82 >=60 mL/min/1. 73 m?? [facility] Comment: This patient's estimated GFR [...] and symptoms in addition to eGFR. Blood 07/04/2023 7:39 AM EDT 07/04/2023 7:43 AM EDT Narrative Resulting Agency Comment Spec In Lab Rea Hickey MD CHEMISTRY ORDERABLES [facility] [place] [address] * (ABNORMAL) Prothrombin Time (07/04/2023 7:39 AM EDT) Prothrombin Time 13.2(H) 9.4 - 12.5 sec [facility] International Normalization Ratio 1.2 [facility] Comment: An INR <2.0 indicates [...] be appropriate depending on clinical circumstances. Blood 07/04/2023 7:39 AM EDT 07/04/2023 7:43 AM EDT Narrative Resulting Agency Comment Spec In Lab Rea Hickey MD HEMATOLOGY ORDERABLE S Performing Organization Address City/[facility]/ZIP Co de Phone Number [facility] [place] [address] * AFP tumor marker (07/04/2023 7:39 AM EDT) Alpha Fetoprotein 2.9 <=8.3 ng/mL [facility] Comment: This result was generated using a Anthony Viridiana immunoassay. ??Results obtained from other methods or manufacturers cannot be used interchangeably with this method. Blood 07/04/2023 7:39 AM EDT 07/04/2023 7:43 AM EDT Narrative Resulting Agency Comment Spec In Lab Rea Hickey MD CHEMISTRY ORDERABLES Performing Organization Address [facility] Co de Phone Number [facility] [place] [address] documented in this encounter Visit Diagnoses Diagnosis Hepatic cirrhosis, unspecified hepatic cirrhosis type, unspecified whether ascites present documented in this encounter Care Teams Appeals Reviewer Veteran Relationship Specialty Start Date End Date Justino Lucia MD PCP - General Family Medicine 10/04/21 documented as of this encounter
--- OUTSIDE RECORDS SUMMARY | 2024-07-07 13:36 | XMS_ITS | Encounter Summary ---
Author Organization [facility] [place] [address] Care Team Providers Care Bus Attendant Name Role Phone Justino Lucia MD Primary Care Provider [phone] Encounter Details Date Type Department Care Team (Latest Contact Info) Description 01/10/2024 Travel Social History Tobacco Use Types Packs/Day [...] 07/22/2024 9:00 AM EST Appointment [place] [phone] Ana Ho MD [facility] [place] [address] 07/22/2024 10:00 AM EST Laboratory Appointment Lab [address] [place] [phone] 07/22/2024 11:00 AM EST Office Visit [place] [phone] Ana Ho MD [facility] [place] [address] 09/15/2024 10:00 AM EST TH Visit (TeleHealth) Weight and Wellness at [facility] [address] Candy Clifford MD [facility] DR [facility] [address] Scheduled Procedures Name Priority Associated Diagnoses Date/Ti me EGD, UPPER GI ENDOSCOPY (WRV U 2.09) Hepatic cirrhosis, unspecified hepatic cirrhosis type, unspecified whether ascites present documented as of this encounter Goals Goal Patient Goal Type Associated Problems Recent Progress Patient-Stated? Author movement Exercise On track(2021 11:16 AM EDT) No Pankaj Mcadams Note: Try gentle movement like chair yoga, t'ai chi and qigong. Health Hearing Therapist will send hand-outs. Use resistance bands. Health Hearing Therapist will request a set be mailed. Movement [...] opportunity to start with protein (cottage cheese, bahraini yogurt, protein smoothies, chicken or chicken salad [...] for sample meal ideas in the USPS [facility] Keep food log until you are seen by the dieititian. Record everything you eat or drink, include time eaten and any emotional changes that are significant. relaxation/sleep Lifestyle Pankaj Russ Note: Try some meditation/relaxation apps when I wake in the night and can't go back to sleep. Health Hearing Therapist will send some to try. Tried apps but don't really like them as I like the quiet when going to sleep. [facility] 04/23 documented as of this encounter Visit Diagnoses Not on filedocumented in this encounter Care Teams Bus Attendant Relationship Specialty Start Date End Date Justino Lucia MD PCP - General Family Medicine 10/04/21 documented as of this encounter
--- OUTSIDE RECORDS SUMMARY | 2024-07-07 13:36 | XMS_ITS | Encounter Summary ---
Author Organization [facility] Address [facility] [place] [address] Care Team Providers Care Shoes Hand Sewer Name Role Phone Justino Lucia MD Primary Care Provider Encounter Details Date Type Department Care Team (Late st Contact Info) Description 01/13/2024 Notes Only Care Management [facility] [place] [phone] Priscilla Gonzalez Social History Tobacco Use Types [...] encounter Progress Notes * Priscilla Gonzalez - 01/13/2024 9:40 AM EDT Application Final Determination Application Sent to Program: 01/01/2024 Program Name: Destinee Nordisk Medication: Ozempic Program Phone #: Program Fax #: Enrollment End Date: 09/01/2024 Quantity Shipped: 120 day Supply Shipping Timeframe: 10-14 Business Days Ships To:[facility] documented in this encounter Plan of Treatment Upcoming Encounters Date Type Department Care Team (Late st Contact Info) Description 07/22/2024 9:00 AM EST Appointment [place] [phone] Ana Ho MD [facility] [place] [address] 07/22/2024 10:00 AM EST Laboratory Appointment Lab [address] [address] 07/22/2024 11:00 AM EST Office Visit [place] [phone] Ana Ho MD [facility] [place] [address] 09/15/2024 10:00 AM EST TH Visit (TeleHealth) [place] [address] Candy Clifford MD [facility] DR [facility] [address] Scheduled Procedures Name Priority Associated Diagnoses Date/Ti me EGD, UPPER GI ENDOSCOPY (WRV U 2.09) Hepatic cirrhosis, unspecified hepatic cirrhosis type, unspecified whether ascites present documented as of this encounter Goals Goal Patient Goal Type Associated Problems Recent Progress Patient-Stated? Author movement Exercise On track(2021 11:16 AM EDT) No Pankaj Mcadams Note: Try gentle movement like chair yoga, t'ai chi and qigong. Health Driveway Attendant will send hand-outs. Use resistance bands. Health Driveway Attendant will request a set be mailed. Movement Exercise On track(2021 11:16 AM EDT) Pankaj Russ Note: Look around town, senior center, gyms, [...] opportunity to start with protein (cottage cheese, nepali yogurt, protein smoothies, chicken or chicken salad [...] and can't go back to sleep. Health Driveway Attendant will send some to try. Tried apps but don't really like them as I like the quiet when going to sleep. [facility] 04/23 documented as of this encounter Visit Diagnoses Not on filedocumented in this encounter Care Teams Shoes Hand Sewer Relationship Specialty Start Date End Date Justino Lucia MD PCP - General Family Medicine 10/04/21 documented as of this encounter
--- OUTSIDE RECORDS SUMMARY | 2024-07-07 13:36 | XMS_ITS | Encounter Summary ---
Author Organization [facility] [place] [address] Care Team Providers Care Manager Pest Name Role Phone Justino Lucia MD Primary Care Provider [phone] Encounter Details Date Type Department Care Team (Latest Contact Info) Description 07/03/2023 Travel Social History Tobacco Use Types Packs/Day [...] 07/22/2024 9:00 AM EST Appointment [place] [phone] Ana Ho MD [facility] [place] [address] 07/22/2024 10:00 AM EST Laboratory Appointment Lab [address] [place] [phone] 07/22/2024 11:00 AM EST Office Visit [place] [phone] Ana Ho MD [facility] [place] [address] 09/15/2024 10:00 AM EST TH Visit (TeleHealth) Weight and Wellness at [facility] [place] [address] Candy Clifford MD [facility] DR [facility] [address] Scheduled Procedures Name Priority Associated Diagnoses Date/Ti me EGD, UPPER GI ENDOSCOPY (WRV U 2.09) Hepatic cirrhosis, unspecified hepatic cirrhosis type, unspecified whether ascites present documented as of this encounter Goals Goal Patient Goal Type Associated Problems Recent Progress Patient-Stated? Author movement Exercise On track(2021 11:16 AM EDT) No Pnakaj Mcadasm Note: Try gentle movement like chair yoga, t'ai chi and qigong. Health Merchant Mariner will send hand-outs. Use resistance bands. Health Merchant Mariner will request a set be mailed. Movement [...] opportunity to start with protein (cottage cheese, new zealander yogurt, protein smoothies, chicken or chicken salad [...] for sample meal ideas in the USPS [facility] Keep food log until you are seen by the dieititian. Record everything you eat or drink, include time eaten and any emotional changes that are significant. relaxation/sleep Lifestyle Pankaj Russ Note: Try some meditation/relaxation apps when I wake in the night and can't go back to sleep. Health Merchant Mariner will send some to try. Tried apps but don't really like them as I like the quiet when going to sleep. [facility] 04/23 documented as of this encounter Visit Diagnoses Not on filedocumented in this encounter Care Teams Manager Pest Relationship Specialty Start Date End Date Justino Lucia MD PCP - General Family Medicine 10/04/21 documented as of this encounter
--- OUTSIDE RECORDS SUMMARY | 2024-07-07 13:36 | XMS_ITS | Encounter Summary ---
Author Organization [facility] [place] [address] Care Team Providers Care Building Engineer Name Role Phone Justino Lucia MD Primary Care Provider [phone] Reason for Visit * Reason Onset Date Comments Prior Authorization 10/03/2023 Ozempic Encounter Details Date Type Department Care Team (Late Contact Info) Description 10/03/2023 Telephone [place] [address] Pia Hernandez LNA Prior Authorization (Ozempic) Social History Tobacco Use Types Packs/Day Years [...] encounter Miscellaneous Notes * Telephone Encounter - Pia Hernandez LNA - 10/03/2023 1:52 PM EST Received PA request for Ozempic via CM. Not longer submitted by our team. Message sent to [facility]. Cover My Meds Gomez: [id number] [employer] Electronic Prior Authorization Request Form ID# [id number] documented in this encounter Plan of Treatment Upcoming Encounters Date Type Department Care Team (Late Contact Info) Description 07/22/2024 9:00 AM [place] [phone] Ana Ho MD [facility] [place] [address] 07/22/2024 10:00 AM EST Laboratory Appointment Lab [address] [place] [address] 07/22/2024 11:00 AM EST Office [place] [phone] Ana Ho MD [facility] [place] [address] 09/15/2024 10:00 AM EST TH Visit (TeleHealth) [place] [address] Candy Clifford MD [facility] DR [facility] [address] Scheduled Procedures Name Priority Associated Diagnoses Date/Ti me EGD, UPPER GI ENDOSCOPY (WRV U 2.09) Hepatic cirrhosis, unspecified hepatic cirrhosis type, unspecified whether ascites present documented as of this encounter Goals Goal Patient Goal Type Associated Problems Recent Progress Patient-Stated? Author movement Exercise On track(2021 11:16 AM EDT) No Pankaj Mcadams Note: Try gentle movement like chair yoga, t'ai chi and qigong. Health Felled Seam Operator will send hand-outs. Use resistance bands. Health Felled Seam Operator will request a set be mailed. [...] opportunity to start with protein (cottage cheese, mongolian yogurt, protein smoothies, chicken or chicken salad [...] for sample meal ideas in the USPS [facility] Keep food log until you are seen by the dieititian. Record everything you eat or drink, include time eaten and any emotional changes that are significant. relaxation/sleep Lifestyle No Pankaj Mcadams Note: Try some meditation/relaxation apps when I wake in the night and can't go back to sleep. Health Felled Seam Operator will send some to try. Tried apps but don't really like them as I like the quiet when going to sleep. [facility] 04/23 documented as of this encounter Visit Diagnoses Not on filedocumented in this encounter Care Teams Building Engineer Relationship Specialty Start Date End Date Justino Lucia MD PCP - General Family Medicine 10/04/21 documented as of this encounter
--- OUTSIDE RECORDS SUMMARY | 2024-07-07 13:36 | XMS_ITS | Encounter Summary ---
Author Organization [facility] [address] Care Team Providers Care Residential Sales Consultant Name Role Phone Justino Lucia MD Primary Care Provider [phone] Reason for Visit * Reason Onset Date Comments Medication Refill 02/24/2024 Encounter Details Date Type Department Care Team (Late st Contact Info) Description 02/24/2024 Refill [place] [phone] Candy Clifford MD [facility] DR [facility] [place] [address] Social History Tobacco Use Types Packs/Day Years [...] 07/22/2024 9:00 AM [place] [phone] Ana Ho MD [facility] [place] [address] 07/22/2024 10:00 AM EST Laboratory Appointment Lab [address] [place] [address] 07/22/2024 11:00 AM EST Office [place] [address] Ana Ho MD [facility] DR GASTROENTEROLOGY [place], [place] [phone] 09/15/2024 10:00 AM EST TH Visit (TeleHealth) [place] [address] Candy Clifford MD [facility] [place] [address] Scheduled Procedures Name Priority Associated Diagnoses Date/Ti me EGD, UPPER GI ENDOSCOPY (WRV U 2.09) Hepatic cirrhosis, unspecified hepatic cirrhosis type, unspecified whether ascites present documented as of this encounter Goals Goal Patient Goal Type Associated Problems Recent Progress Patient-Stated? Author movement Exercise On track(2021 11:16 AM EDT) No Pankaj Mcadams Note: Try gentle movement like chair yoga, t'ai chi and qigong. Health Family Law Attorney will send hand-outs. Use resistance bands. Health Family Law Attorney will request a set be mailed. Movement [...] opportunity to start with protein (cottage cheese, maltese yogurt, protein smoothies, chicken or chicken salad [...] and can't go back to sleep. Health Family Law Attorney will send some to try. Tried apps but don't really like them as I like the quiet when going to sleep. [facility] 04/23 documented as of this encounter Visit Diagnoses Not on filedocumented in this encounter Care Teams Residential Sales Consultant Relationship Specialty Start Date End Date Justino Lucia MD PCP - General Family Medicine 10/04/21 documented as of this encounter
--- OUTSIDE RECORDS SUMMARY | 2024-07-07 13:36 | XMS_ITS | Encounter Summary ---
Author Organization [facility] [place] [address] Care Team Providers Care Snow Removal Supervisor Name Role Phone Justino Lucia MD Primary Care Provider [phone] Encounter Details Date Type Department Care Team (Late st Contact Info) Description 12/02/2023 [place] [address] Priscilla Gonzalez Social History Tobacco Use Types [...] encounter Progress Notes * Priscilla Gonzalez - 12/02/2023 3:32 PM EDT I sent a letter and the application for assistance with Ozempic to the patient for them to complete, sign and return to the Medication Assistance Program. I sent the application for assistance with Ozempic to Dr. Clifford for their signature and prescription. I will follow through with the remainder of the application once everything is returned to me. documented in this encounter Plan of Treatment Upcoming Encounters Date Type Department Care Team (Late st Contact Info) Description 07/22/2024 9:00 AM EST Appointment [place] [address] Ana Ho MD [facility] [place] [address] 07/22/2024 10:00 AM EST Laboratory Appointment Lab [address] [place] [phone] 07/22/2024 11:00 AM EST Office Visit [place] [phone] Ana Ho MD [facility] [place] [address] 09/15/2024 10:00 AM EST TH Visit (TeleHealth) Weight and Wellness at [place] [phone] Candy Clifford MD [facility] DR [facility] [place] [address] Scheduled Procedures Name Priority Associated Diagnoses Date/Ti me EGD, UPPER GI ENDOSCOPY (WRV U 2.09) Hepatic cirrhosis, unspecified hepatic cirrhosis type, unspecified whether ascites present documented as of this encounter Goals Goal Patient Goal Type Associated Problems Recent Progress Patient-Stated? Author movement Exercise On track(2021 11:16 AM EDT) No Pankaj Mcadams Note: Try gentle movement like chair yoga, t'ai chi and qigong. Health Hse Manager will send hand-outs. Use resistance bands. Health Hse Manager will request a set be mailed. Movement [...] and can't go back to sleep. Health Hse Manager will send some to try. Tried apps but don't really like them as I like the quiet when going to sleep. [facility] 04/23 documented as of this encounter Visit Diagnoses Not on filedocumented in this encounter Care Teams Snow Removal Supervisor Relationship Specialty Start Date End Date Justino Lucia MD PCP - General Family Medicine 10/04/21 documented as of this encounter
--- OUTSIDE RECORDS SUMMARY | 2024-07-07 13:36 | XMS_ITS | Encounter Summary ---
Author Organization [facility] [place] [address] Care Team Providers Care Medical Device Engineer Name Role Phone Justino Lucia MD Primary Care Provider [phone] Reason for Visit * Reason Comments Prior Authorization Ozempic 8mg/3mL Encounter Details Date Type Department Care Team (Late st Contact Info) Description 10/07/2023 Specialty [place] [phone] Nan Hoffman CPHT Social History Tobacco Use Types Packs/Day Years [...] as of this encounter Progress Notes * Nan Hoffman CPHT - 10/07/2023 11:59 PM EST Ozempic - Initial prior authorization sent by clinic and denied. The insurance will not allow additional submissions/new request and will require an appeal. documented in this encounter Plan of Treatment Upcoming Encounters Date Type Department Care Team (Late st Contact Info) Description 07/22/2024 9:00 AM EST [place] [address] Ana Ho MD [facility] [place] [address] 07/22/2024 10:00 AM EST Laboratory Appointment Lab [address] [place] [address] 07/22/2024 11:00 AM EST Office [place] [address] Ana Ho MD [facility] [place] [address] 09/15/2024 10:00 AM EST TH Visit (TeleHealth) [place] [phone] Candy Clifford MD [facility] [place] [address] Scheduled Procedures Name Priority Associated Diagnoses Date/Ti me EGD, UPPER GI ENDOSCOPY (WRV U 2.09) Hepatic cirrhosis, unspecified hepatic cirrhosis type, unspecified whether ascites present documented as of this encounter Goals Goal Patient Goal Type Associated Problems Recent Progress Patient-Stated? Author movement Exercise On track(2021 11:16 AM EDT) No Pankaj Mcadams Note: Try gentle movement like chair yoga, t'ai chi and qigong. Health Laser Machine Operator will send hand-outs. Use resistance bands. Health Laser Machine Operator will request a set be [...] for sample meal ideas in the USPS [facility] Keep food log until you are seen by the dieititian. Record everything you eat or drink, include time eaten and any emotional changes that are significant. relaxation/sleep Lifestyle No Pankaj Mcadams Note: Try some meditation/relaxation apps when I wake in the night and can't go back to sleep. Health Laser Machine Operator will send some to try. Tried apps but don't really like them as I like the quiet when going to sleep. [facility] 04/23 documented as of this encounter Visit Diagnoses Not on filedocumented in this encounter Care Teams Medical Device Engineer Relationship Specialty Start Date End Date Justino Lucia MD PCP - General Family Medicine 10/04/21 documented as of this encounter
--- OUTSIDE RECORDS SUMMARY | 2024-07-07 13:36 | XMS_ITS | Encounter Summary ---
Author Organization [facility] Address [facility] [place] [address] Care Team Providers Care Plateman Name Role Phone Justino Lucia MD Primary Care Provider [phone] Reason for Visit * Reason Onset Date Comments Medication Refill 01/07/2024 Encounter Details Date Type Department Care Team (Late st Contact Info) Description 01/07/2024 Refill Weight [place] [address] Candy Clifford MD [facility] DR [facility] [address] Social History Tobacco Use Types Packs/Day Years [...] encounter Miscellaneous Notes * Telephone Encounter - Consuelo Harris RN - 01/08/2024 2:34 PM EDT Called and left a detailed message. [facility] They will reach out to you and mail it to you next day in a coldback box. You will then put the medication in your refrigerator. They usually go over how to take the medication but if you have any questions we can do that over the phone or in an in office visit. You can reach out anytime. * Telephone Encounter - Capri Brushcyndy Olsen - 01/08/2024 9:21 AM EDT Patient called to see how she is going to receive her Ozempic. As pharmacy stated it would be sent to the provider. Please call to advise. [phone] documented in this encounter Plan of Treatment Upcoming Encounters Date Type Department Care Team (Late st Contact Info) Description 07/22/2024 9:00 AM [place] [address] Ana Ho MD [facility] [place] [address] 07/22/2024 10:00 AM EST Laboratory Appointment Lab [address] [place] [phone] 07/22/2024 11:00 AM EST Office Visit Gastroenterology at [place] [phone] Ana Ho MD [facility] [place] [address] 09/15/2024 10:00 AM EST TH Visit (TeleHealth) [place] [address] Candy Clifford MD [facility] DR [facility] [address] Scheduled Procedures Name Priority Associated Diagnoses Date/Ti me EGD, UPPER GI ENDOSCOPY (WRV U 2.09) Hepatic cirrhosis, unspecified hepatic cirrhosis type, unspecified whether ascites present documented as of this encounter Goals Goal Patient Goal Type Associated Problems Recent Progress Patient-Stated? Author movement Exercise On track(2021 11:16 AM EDT) No Pankaj Mcadams Note: Try gentle movement like chair yoga, t'ai chi and qigong. Health Flatware Maker will send hand-outs. Use resistance bands. Health Flatware Maker will request a set be mailed. [...] and can't go back to sleep. Health Flatware Maker will send some to try. Tried apps but don't really like them as I like the quiet when going to sleep. [facility] 04/23 documented as of this encounter Visit Diagnoses Not on filedocumented in this encounter Care Teams Plateman Relationship Specialty Start Date End Date Justino Lucia MD PCP - General Family Medicine 10/04/21 documented as of this encounter
--- OUTSIDE RECORDS SUMMARY | 2024-07-07 13:36 | XMS_ITS | Encounter Summary ---
Author Organization [facility] [place] [address] Care Team Providers Care Neurosurgeon Name Role Phone Justino Lucia MD Primary Care Provider [phone] Reason for Visit * Reason Onset Date Comments Prior Authorization 03/03/2024 Encounter Details Date Type Department Care Team (Late Contact Info) Description 03/03/2024 [place] [phone] Bettye Faust CCMA Prior Authorization Social History Tobacco Use Types Packs/Day Years [...] encounter Miscellaneous Notes * Telephone Encounter - Bettye Faust CCMA - 03/03/2024 2:12 PM EDT PA Request received in CM for Ozempic (2 MG/DOSE) 8MG/3ML pen-injectors Gomez [id number] Routed to specialty pharmacy documented in this encounter Plan of Treatment Upcoming Encounters Date Type Department Care Team (Late st Contact Info) Description 07/22/2024 9:00 AM EST [place] [address] Ana Ho MD [facility] [place] [address] 07/22/2024 10:00 AM EST Laboratory Appointment Lab [address] [place] [phone] 07/22/2024 11:00 AM EST Office [place] [phone] Ana Ho MD [facility] [place] [address] 09/15/2024 10:00 AM EST TH Visit (TeleHealth) [place] [address] Candy Clifford MD [facility] DR [facility] [place] [address] Scheduled Procedures Name Priority Associated Diagnoses Date/Ti me EGD, UPPER GI ENDOSCOPY (WRV U 2.09) Hepatic cirrhosis, unspecified hepatic cirrhosis type, unspecified whether ascites present documented as of this encounter Goals Goal Patient Goal Type Associated Problems Recent Progress Patient-Stated? Author movement Exercise On track(2021 11:16 AM EDT) No Pankaj Mcadams Note: Try gentle movement like chair yoga, t'ai chi and qigong. Health Manager Nursing will send hand-outs. Use resistance bands. Health Manager Nursing will request a set be mailed. Movement [...] opportunity to start with protein (cottage cheese, eritrean yogurt, protein smoothies, chicken or chicken salad [...] for sample meal ideas in the USPS [employer] Keep food log until you are seen by the dieititian. Record everything you eat or drink, include time eaten and any emotional changes that are significant. relaxation/sleep Lifestyle No Pankaj Mcadams Note: Try some meditation/relaxation apps when I wake in the night and can't go back to sleep. Health Manager Nursing will send some to try. Tried apps but don't really like them as I like the quiet when going to sleep. [facility] 04/23 documented as of this encounter Visit Diagnoses Not on filedocumented in this encounter Care Teams Neurosurgeon Relationship Specialty Start Date End Date Justino Lucia MD PCP - General Family Medicine 10/04/21 documented as of this encounter
--- OUTSIDE RECORDS SUMMARY | 2024-07-07 13:36 | XMS_ITS | Encounter Summary ---
Author Organization [facility] [place] [address] Care Team Providers Care Lens Coater Name Role Phone Justino Lucia MD Primary Care Provider [phone] Encounter Details Date Type Department Care Team (Late st Contact Info) Description 10/30/2023 Orders Only [place] [phone] Candy Clifford MD [facility] DR [facility]DOM[facility] [address] Social History Tobacco Use Types Packs/Day Years [...] 07/22/2024 9:00 AM EST [place] [phone] Ana Ho MD [facility] [place] [address] 07/22/2024 10:00 AM EST Laboratory Appointment Lab [address] [place] [address] 07/22/2024 11:00 AM EST Office [place] [address] Ana Ho MD [facility] [place] [address] 09/15/2024 10:00 AM EST TH Visit (TeleHealth) [place] [address] Candy Clifford MD [facility] [address] Scheduled Procedures Name Priority Associated Diagnoses Date/Ti me EGD, UPPER GI ENDOSCOPY (WRV U 2.09) Hepatic cirrhosis, unspecified hepatic cirrhosis type, unspecified whether ascites present documented as of this encounter Goals Goal Patient Goal Type Associated Problems Recent Progress Patient-Stated? Author movement Exercise On track(2021 11:16 AM EDT) No Pankaj Mcadams Note: Try gentle movement like chair yoga, t'ai chi and qigong. Health Monument Letterer will send hand-outs. Use resistance bands. Health Monument Letterer will request a set be mailed. Movement [...] opportunity to start with protein (cottage cheese, wallisian yogurt, protein smoothies, chicken or chicken salad [...] and can't go back to sleep. Health Monument Letterer will send some to try. Tried apps but don't really like them as I like the quiet when going to sleep. [facility] 04/23 documented as of this encounter Visit Diagnoses Not on filedocumented in this encounter Care Teams Lens Coater Relationship Specialty Start Date End Date Justino Lucia MD PCP - General Family Medicine 10/04/21 documented as of this encounter
--- OUTSIDE RECORDS SUMMARY | 2024-07-07 13:36 | XMS_ITS | Encounter Summary ---
Author Organization [facility] [place] [address] Care Team Providers Care Postal Sorting Officer Name Role Phone Justino Lucia MD Primary Care Provider [phone] Encounter Details Date Type Department Care Team (Late st Contact Info) Description 11/26/2023 10:00 AM EDT TH Visit (TeleHealth) [place] [address] Candy Clifford MD [facility] DR [facility] [address] Class 3 severe obesity with serious comorbidity and body mass index (BMI) of 50.0 to 59.9 in adult, unspecified obesity type (Primary Dx); [...] as of this encounter Progress Notes * Candy Clifford MD - 11/26/2023 10:00 AM EDTSummary: 10th visit with Patient provided verbal consent prior to initiation of this telemedicine encounter and expressed understanding that the telemedicine visit may be billed similar to a clinic visit, pt was seen while via [x] Video [] phone For this video visit, pt is located at: [facility] Patient Name: Telma Richter Date of : 1950 Age: 73 y.o. Justino Lucia MD Thank you for referring Telma Richter to the [facility]. I saw her for a follow-upvisit today, 11/26/23. Please see changes to care as documented in the assessment and plan. CHIEF COMPLAINT: F/u for treatment of WHO Class 3 / EOSS Stage 2 Obesity defined by initial BMI and comorbidities:HTN, Hyperlipidemia and Vitamin D deficiency. GERD. OA. This is Visit #10 [facility] visit for this 73 y.o. patient. Weight gain due to: Unclear - sits at home; notes gaining weight when she moved here from [place] to take care of her dad about [...] lbs) 11/26/2023, 288 lbs (- 0 lbs) [facility] Team: Lacey Martino RD and Pankaj Mcadams, Health Photoengraving Proofer HPI Lost Medicaid! Now paying $137 monthly into Medicare. Working up to 34 hours a week, 16 dollars an hour. Since being off Ozempic, was getting shaky and light headed. Had Dr. Lucia take a look at my neck - constantly sore. He's going to work as Hospitalist. Had echo done at [facility] or [facility]. Legs are swollen right now, having a hard time walking. On lasix 20 mg chronically. In BR constantly, worried about taking 40 mg. PILLARS Stress: 14 yo GD is doing ok, getting treated at . My stress level is ok. I love working. 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 Sleep: tossing and turning a lot Movement: see HPI Recall: Eating the same as I always did. Stuff isn't tasting good Not craving anything really Not like I used to I hate McDonalds and I used to love McDonalds Before my daughter came back my son and I were eating healthy balanced meals Now with daughter and kids, I do not like what she cooks so eating yogurt and cheese sticks. I have been eating sweets too. I have to get off them. AOM: Currently taking: none AOM HX: Metformin XR - did not [...] VISIT Liver Fibrosis Score (Fib 4) was 2.34 at 11/26/2023 10:47 AM Risk of Fibrosis Low Intermediate High [...] []Surgery []Culinary []ACT []Monthly Lifestyle Classes Discussion 11/26/23: Current pillars reviewed. Doing relatively well off Ozempic, but given her co-morbidities will have her apply for [facility] program. Notes feeling worse off it as well. Deferring RD support. Cont f/u. 01/18/2022 4:00 PM [facility] PATHWAY - ADULT Obesity Medicine Activate Goals movement Try gentle movement like chair yoga, t'ai chi and qigong. Health Photoengraving Proofer will send hand-outs. Use resistance bands. Health Photoengraving Proofer will request a set be mailed. Movement Look around town, senior center, gyms, for a class to participate in, bone builders or gentle stretching. Nutrition Nutrition Goals updated today: 12/11/22 TF 1. Focus on reaching adequate protein intake - aim for 60-80 grams (handout attached in after visitsummary) 2. Consider the 3 eating events per day to be an opportunity to start with protein (cottage cheese,iraqi yogurt, protein smoothies, chicken or chicken salad [...] [facility] Keep food log until you are seen by the dieititian. Record everything you eat or drink, include time eaten and any emotional changes that are significant. relaxation/sleep Try some meditation/relaxation apps when I wake in the night and can't go back to sleep. Health Photoengraving Proofer will send some to try. Tried apps but don't really like them as I like the quiet when going to sleep. [facility] 04/23 VITAL SIGNS: There were no vitals filed for this visit. There is no height or weight on file to calculate BMI. PHYSICAL EXAM: Gen: Alert and appropriate, NAD. LABS: Lab Results Component Value Date WBC 4.4 07/04/2023 RBC 4.64 07/04/2023 HGB 14.2 07/04/2023 HCT 42.4 07/04/2023 MCV 91.4 07/04/2023 MCH 30.6 07/04/2023 MCHC 33.5 07/04/2023 PLATELET 199 07/04/2023 RDWCV 13.7 07/04/2023 Lab Results Component Value Date NA 142 07/04/2023 K 3.8 07/04/2023 CL 103 07/04/2023 CO2 30 07/04/2023 BUN 10 07/04/2023 CREATININE 0.77 07/04/2023 GLUCOSE 92 07/04/2023 CALCIUM 8.8 07/04/2023 ESTGFR 82 07/04/2023 Lab Results Component Value Date ALT 15 07/04/2023 AST 25 07/04/2023 ALKPHOS 84 07/04/2023 BILITOT 1.0 07/04/2023 BILIDIR 0.3 02/07/2016 ALBUMIN 3.4 07/04/2023 PROT 6.5 07/04/2023 Lab Results Component Value Date CHLPL 118 01/01/2023 HDL 45 01/01/2023 CHOLHDL 2.6 01/01/2023 TRIG 75 01/01/2023 LDLCHOL 58 01/01/2023 Lab Results Component Value Date HA1C 4.8 01/01/2023 HA1C 5.5 01/25/2022 Lab Results Component Value Date TSH 1.28 01/01/2023 Lab Results Component Value Date LABINSU 25.2 (H) 01/01/2023 No results found for: GLUCFASTING Lab Results Component Value Date [id number] 553 01/01/2023 25-OH Vit D Total (ng/mL) Date Value Status 01/01/2023 43 Final No results found for: URICACID ASSESSMENT AND PLAN: Telma Richter was seen in follow up today for ongoing Metabolically unhealthy obesity, not yet at treatment goal [] with improvement [x] without change. Goals and treatment options were [...] OA. Referrals pending: None AOM management today: Applying for Ozempic through [facility] Diagnoses and all orders for this visit: Class 3 severe obesity with serious comorbidity and body mass index (BMI) of 50.0 to 59.9 in adult,unspecified obesity type NAFLD (nonalcoholic fatty liver disease) Hyperlipidemia, unspecified hyperlipidemia type Prediabetes Insulin resistance Hypertension, unspecified type No orders of the defined types were placed in this encounter. Return in about 3 months (around 02/26/2024) for In person or Zoom, With me. 1 min chart review 25 min [id number] Visit time 5 min Documentation time I [...] 07/22/2024 9:00 AM EST Appointment [place] [address] Ana Ho MD [facility] [place] [address] 07/22/2024 10:00 AM EST Laboratory Appointment Lab [address] [place] [phone] 07/22/2024 11:00 AM EST Office Visit [place] [address] Ana Ho MD [facility] [place] [address] 09/15/2024 10:00 AM EST TH Visit (TeleHealth) Weight and Wellness at [facility] [place] [address] Candy Clifford MD [facility] DR [facility] [address] Scheduled Procedures Name Priority Associated Diagnoses Date/Ti me EGD, UPPER GI ENDOSCOPY (WRV U 2.09) Hepatic cirrhosis, unspecified hepatic cirrhosis type, unspecified whether ascites present documented as of this encounter Goals Goal Patient Goal Type Associated Problems Recent Progress Patient-Stated? Author movement Exercise On track(2021 11:16 AM EDT) No Pankaj Mcadams Note: Try gentle movement like chair yoga, t'ai chi and qigong. Health Photoengraving Proofer will send hand-outs. Use resistance bands. Health Photoengraving Proofer will request a set be mailed. Movement [...] opportunity to start with protein (cottage cheese, iraqi yogurt, protein smoothies, chicken or chicken salad [...] for [facility] Keep food log until you are seen by the dieititian. Record everything you eat or drink, include time eaten and any emotional changes that are significant. relaxation/sleep Lifestyle Pankaj Russ Note: Try some meditation/relaxation apps when I wake in the night and can't go back to sleep. Health Photoengraving Proofer will send some to try. Tried apps but don't really like them as I like the quiet when going to sleep. [facility] 04/23 documented as of this encounter Visit Diagnoses Diagnosis Class 3 severe obesity with serious comorbidity and body mass index (BMI) of 50.0 to 59.9 in adult, unspecified obesity type- Primary NAFLD (nonalcoholic fatty liver disease) Other chronic nonalcoholic liver disease Hyperlipidemia, unspecified hyperlipidemia type Prediabetes Other abnormal glucose Insulin resistance Dysmetabolic Syndrome X Hypertension, unspecified type documented in this encounter Care Teams Postal Sorting Officer Relationship Specialty Start Date End Date Justino Lucia MD PCP - General Family Medicine 10/04/21 documented as of this encounter
--- OUTSIDE RECORDS SUMMARY | 2024-07-07 13:36 | XMS_ITS | Encounter Summary ---
Author Organization [facility] Address [facility] [place] [address] Care Team Providers Care Production Planning Supervisor Name Role Phone Justino Lucia MD Primary Care Provider [phone] Encounter Details Date Type Department Care Team (Late st Contact Info) Description 07/23/2023 2:00 PM EST TH Visit (TeleHealth) [place] [address] Candy Clifford MD [facility] [address] [facility] [place] [address] Class 3 severe obesity with serious comorbidity and body mass index (BMI) of 50.0 to 59.9 in adult, unspecified obesity type; NAFLD (nonalcoholic fatty liver disease); Hyperlipidemia, unspecified [...] Progress Notes * Candy Clifford MD - 07/23/2023 2:00 PM ESTSummary: 9th visit with Patient provided verbal consent prior to initiation of this telemedicine encounter and expressed understanding that the telemedicine visit may be billed similar to a clinic visit, pt was seen while via [x] Video [] phone For this video visit, pt is located at: [facility] Patient Name: Telma Richter Date of : 1950 Age: 73 y.o. Justino Lucia MD Thank you for referring Telma [facility] the [facility]. I saw her for a follow-upvisit today, 07/23/23. Please see changes to care as documented in the assessment and plan. CHIEF COMPLAINT: F/u for treatment of WHO Class 3 / EOSS Stage 2 Obesity defined by initial BMI and comorbidities:HTN, Hyperlipidemia and Vitamin D deficiency. GERD. OA. This is Visit #9 [facility] visit for this 73 y.o. patient. Weight gain due to: Unclear - sits at home; notes gaining weight when she moved here from [place] to take care of her dad about [...] lbs (+ 1 lbs, - 47 lbs) [facility] Team: Lacey Martino RD and Pankaj Mcadams, Health Green Chain Off Bearer HPI These shots aren't working anymore, down to 276 lbs and now back up to 288 lbs. Getting into junk food - cookies, whoopie pies - I love those, that started it. Been trying to cut down on those. Had EGD and CT abd for cirrhosis/varices. Stable. Having attacks, Dr. Luica ordering echo. PILLARS Stress: working 4 days a week, 745 am - 1 pm x 2 days, until 2 pm x 1, until 4 pm x 1. I really enjoy doing the work, kind of slow right now. 14 yo GD has MS! Sleep: I have been sleeping ok - sometimes up at 430 AM Movement: starting to get more activity - high NEAT at work, cleans, walks Recall: hard to prepare with everyone here Not eating all day at work because of diarrhea. Sometimes has it and sometimes doesn't. I never know when it is going to happen. Then I eat whatever I can grab - what my daughter cooks I am not into - hamburger helper, chicken and boxed rice I want to eat healthy, chicken. Drinking water all day AOM: Currently taking: Ozempic 2 mg AOM HX: Metformin XR - did not tolerate Medication C/I: GB? S/p CCY Any h/o [...] Fibrosis Score (Fib 4) was 2.34 at 07/23/2023 5:03 PM Risk of Fibrosis Low Intermediate High NAFLD [...] []Surgery []Culinary []ACT []Monthly Lifestyle Classes Discussion 07/23/23: Current pillars reviewed. Doing well, some tachyphylaxis to Ozempic which is expected. Will continue 2 mg, can add 0.25 mg as she has it. Reviewed ways to prepare for dinner meal- healthy frozen options, soups, etc. Will connect with RD if she cannot make progress on her own. Knows to limit sweets 2x a week. If echo is WNL, can consider low dose phentermine. Cont f/u. 01/18/2022 4:00 PM [facility] PATHWAY - ADULT Obesity Medicine Activate Goals movement Try gentle movement like chair yoga, t'ai chi and qigong. Health Green Chain Off Bearer will send hand-outs. Use resistance bands. Health Green Chain Off Bearer will request a set be mailed. Movement [...] an opportunity to start with protein (cottage cheese,tajik yogurt, protein smoothies, chicken or chicken salad [...] for sample meal ideas in the USPS [facility] Keep food log until you are seen by the dieititian. Record everything you eat or drink, include time eaten and any emotional changes that are significant. relaxation/sleep Try some meditation/relaxation apps when I wake in the night and can't go back to sleep. Health Green Chain Off Bearer will send some to try. Tried apps but don't really like them as I like the quiet when going to sleep. [facility] 04/23 VITAL SIGNS: There were no vitals [...] for: GLUCFASTING Lab Results Component Value Date [id number] 01/01/2023 25-OH Vit D Total (ng/mL) [...] INJECT 2 MILLIGRAMS SUBCUTANEOUSLY ONCEA WEEK DIRECTED No orders of the defined types were placed in this encounter. Return in about 3 months (around 10/23/2023) for In person or Zoom, With me, Maintain ACT. 1 min chart review 30 min [id number] Visit time 3 min Documentation time I spent time as [...] 07/22/2024 9:00 AM EST [place]ointment [place] [address] Ana Ho MD [facility] [place] [address] 07/22/2024 10:00 AM EST Laboratory Appointment Lab [address] [place] [phone] 07/22/2024 11:00 AM EST Office [place] [phone] Ana Ho MD [facility] [place] [address] 09/15/2024 10:00 AM EST TH Visit (TeleHealth) [place] [phone] Candy Clifford MD [facility] DR [facility] [place] [address] Scheduled Procedures Name Priority Associated Diagnoses Date/Ti me EGD, UPPER GI ENDOSCOPY (WRV U 2.09) Hepatic cirrhosis, unspecified hepatic cirrhosis type, unspecified whether ascites present documented as of this encounter Goals Goal Patient Goal Type Associated Problems Recent Progress Patient-Stated? Author movement Exercise On track(2021 11:16 AM EDT) No Pankaj Mcadams Note: Try gentle movement like chair yoga, t'ai chi and qigong. Health Green Chain Off Bearer will send hand-outs. Use resistance bands. Health Green Chain Off Bearer will request a set be mailed. Movement [...] opportunity to start with protein (cottage cheese, tajik yogurt, protein smoothies, chicken or chicken salad [...] for sample meal ideas in the USPS [facility] Keep food log until you are seen by the dieititian. Record everything you eat or drink, include time eaten and any emotional changes that are significant. relaxation/sleep Lifestyle Pankaj Russ Note: Try some meditation/relaxation apps when I wake in the night and can't go back to sleep. Health Green Chain Off Bearer will send some to try. Tried apps but don't really like them as I like the quiet when going to sleep. [facility] 04/23 documented as of this encounter Visit Diagnoses Diagnosis Class 3 severe obesity with serious comorbidity and body mass index (BMI) of 50.0 to 59.9 in adult, unspecified obesity type NAFLD (nonalcoholic fatty liver disease) Other chronic nonalcoholic liver disease Hyperlipidemia, unspecified hyperlipidemia type Prediabetes Other abnormal glucose Insulin resistance Dysmetabolic Syndrome X documented in this encounter Care Teams Production Planning Supervisor Relationship Specialty Start Date End Date Justino Lucia MD PCP - General Family Medicine 10/04/21 documented as of this encounter
--- OUTSIDE RECORDS SUMMARY | 2024-07-07 13:37 | XMS_ITS | Encounter Summary ---
Author Organization [facility] [place] [address] Care Team Providers Care Bessemer Converter Blower Name Role Phone Justino Lucia MD Primary Care Provider [phone] Encounter Details Date Type Department Care Team (Latest Contact Info) Description 01/01/2023 8:45 AM EDT Laboratory Appointment Lab [address] [place] [phone] Class 3 severe obesity with serious comorbidity and body mass index (BMI) of 60.0 to 69.9 in adult, unspecified obesity type; Hyperlipidemia, unspecified hyperlipidemia type; Prediabetes; Hepatic cirrhosis, unspecified hepatic cirrhosis type, unspecified [...] 07/22/2024 9:00 AM [place] [phone] Ana Ho MD [facility] [place] [address] 07/22/2024 10:00 AM EST Laboratory Appointment Lab [address] [place] [address] 07/22/2024 11:00 AM EST Office [place] [phone] Ana Ho MD [facility] [place] [address] 09/15/2024 10:00 AM EST TH Visit (TeleHealth) [place] [phone] Candy Clifford MD [facility] DR [facility] [place] [address] Scheduled Procedures Name Priority Associated Diagnoses Date/Ti me EGD, UPPER GI ENDOSCOPY (WRV U 2.09) Hepatic cirrhosis, unspecified hepatic cirrhosis type, unspecified whether ascites present documented as of this encounter Goals Goal Patient Goal Type Associated Problems Recent Progress Patient-Stated? Author movement Exercise On track(2021 11:16 AM EDT) No Pankaj Mcadams Note: Try gentle movement like chair yoga, t'ai chi and qigong. Health Emulsion Operator will send hand-outs. Use resistance bands. Health Emulsion Operator will request a set be mailed. [...] opportunity to start with protein (cottage cheese, japanese yogurt, protein smoothies, chicken or chicken salad [...] for sample meal ideas in the USPS [facility] Keep food log until you are seen by the dieititian. Record everything you eat or drink, include time eaten and any emotional changes that are significant. relaxation/sleep Lifestyle Pankaj Russ Note: Try some meditation/relaxation apps when I wake in the night and can't go back to sleep. Health Emulsion Operator will send some to try. Tried apps but don't really like them as I like the quiet when going to sleep. [facility] 04/23 documented as of this encounter Procedures Procedure Name Priority Date/Time Associated Diagnosis Comments HEMOGRAM Routine 01/01/2023 8:48 AM EDT Hepatic cirrhosis, unspecified hepatic cirrhosis type, unspecified whether ascites present DIFFERENTIAL, AUTOMATED Routine 01/01/2023 8:48 AM EDT Hepatic cirrhosis, unspecified hepatic cirrhosis type, unspecified whether ascites present VITAMIN D, 25-HYDROXY Routine 01/01/2023 8:48 AM EDT Class 3 severe obesity with serious comorbidity and body mass index (BMI) of 60.0 to 69.9 in adult, unspecified obesity type INSULIN, TOTAL Routine 01/01/2023 8:48 AM EDT Class 3 severe obesity with serious comorbidity and body mass index (BMI) of 60.0 to 69.9 in adult, unspecified obesity type Prediabetes PROTHROMBIN TIME Routine 01/01/2023 8:48 AM EDT Hepatic cirrhosis, unspecified hepatic cirrhosis type, unspecified whether ascites present HC CBC,PLT & AUTO DIFF Routine 01/01/2023 8:48 AM EDT Hepatic cirrhosis, unspecified hepatic cirrhosis type, unspecified whether ascites present TSH Routine 01/01/2023 8:48 AM EDT Class 3 severe obesity with serious comorbidity and body mass index (BMI) of 60.0 to 69.9 in adult, unspecified obesity type HEMOGLOBIN A1C Routine 01/01/2023 8:48 AM EDT Class 3 severe obesity with serious comorbidity and body mass index (BMI) of 60.0 to 69.9 in adult, unspecified obesity type Prediabetes FERRITIN Routine 01/01/2023 8:48 AM EDT Class 3 severe obesity with serious comorbidity and body mass index (BMI) of 60.0 to 69.9 in adult, unspecified obesity type VITAMIN B12 Routine 01/01/2023 8:48 AM EDT Class 3 severe obesity with serious comorbidity and body mass index (BMI) of 60.0 to 69.9 in adult, unspecified obesity type LIPID PANEL (REFLEX DIRECT LDL) Routine 01/01/2023 8:48 AM EDT Class 3 severe obesity with serious comorbidity and body mass index (BMI) of 60.0 to 69.9 in adult, unspecified obesity type Hyperlipidemia, unspecified hyperlipidemia type COMPREHENSIVE METABOLIC PANEL Routine 01/01/2023 8:48 AM EDT Hepatic cirrhosis, unspecified hepatic cirrhosis type, unspecified whether ascites present documented in this encounter Results * Differential, Automated (01/01/2023 8:48 AM EDT) Neutrophil % 59.0 % [facility] Neutrophil Absolute 2.81 1.70 - 6.10 x10(3)/[facility] LABOR[facility] Lymph % 29.1 % [facility] Lymphocytes Abs 1.4 0.9 - 3.2 x10(3)/[facility] LAB[facility] Monocyte % 9.4 % [facility] Monocyte Abs 0.4 0.3 - 0.9 x10(3)/[facility] Eos % 1.9 % [facility] Eosinophils Abs 0.1 0.0 - 0.4 x10(3)/[facility] LABOR[facility] Basophil % 0.4 % [facility] Baso Absolute 0.0 0.0 - 0.1 x10(3)/[facility] LABORATORY Immature Gran % 0.20 % [facility] Comment: Immature granulocytes(IG's)percentage and absolute count will include metamyelocytes, myelocytes, and promyelocytes. Blood smears from CBCs yielding IG's will be scanned manually for concordance. If this scan disagrees with the automated IG or if promyelocytes are noted, a manual differential will be performed. Immature Gran Absolute 0.01 0.00 - 0.04 x10(3)/[facility] LAB[facility]ATORY Blood 01/01/2023 8:48 AM EDT 01/01/2023 9:03 AM EDT Narrative Resulting Agency Comment Spec In Lab Glenn CHOWDHURY HEMATOLOGY ORDERABLE S Performing Organization Address City/State/[facility] Co de Phone Number [facility] [place] [address] * Hemogram (01/01/2023 8:48 AM EDT) White Blood Cell 4.8 4.0 - 9.5 x10(3)/[facility] LAB[facility]ATORY Red Blood Cell 4.81 4.00 - 5.21 x10(6)/[facility] Hemoglobin 14.7 11.7 - 15.5 g/dL [facility] Hematocrit 43.0 35.7 - 45.8 % [facility] Mean Cell Volume 89.4 82.6 - 94.4 fL [facility] Mean Cell Hemoglobin 30.6 27.1 - 32.0 pg [facility] Mean Cell Hemoglobin Concentration 34.2 31.7 - 35.0 g/dL [facility] Platelet 209 145 - 357 x10(3)/[facility] RDW Standard Deviation 44.0 37.0 - 46.0 fL [facility] RDW coefficient of variation 13.4 11.5 - 14.1 % [facility] Mean Platelet Volume 10.0 7.6 - 12.9 fL [facility] NRBC% auto 0.0 % [facility] NRBC Absolute 0.000 0.000 - 0.000 x10(3)/mcL [facility] Blood 01/01/2023 8:48 AM EDT 01/01/2023 9:03 AM EDT Narrative Resulting Agency Comment Spec In Lab Glenn CHOWDHURY HEMATOLOGY ORDERABLE S [facility] [address] * Comprehensive metabolic panel (non-fasting) (01/01/2023 8:48 AM EDT) Glucose 90 65 - 199 mg/dL [facility] Comment:Diabetes: >=200 mg/d L plus symptoms Blood Urea Nitrogen 12 8 - 18 mg/dL [facility] Creatinine 0.77 0.70 - 1.20 mg/dL [facility] Sodium 142 135 - 145 mmol/L [facility] Potassium 3.9 3.5 - 5.0 mmol/L [facility] Comment: Please note: ??Patients with WBC >100,000 may have falsely elevated Potassium levels. ??For accurate Potassium quantification in these patients send serum separator tube (gold top) for subsequent determinations. ??Contact the Clinical Chemistry Laboratory if there are any questions. Chloride 105 98 - 107 mmol/L [facility] Carbon Dioxide 29 22 - 31 mmol/L [facility] Anion Gap 8 5 - 15 mmol/L [facility] Calcium 9.2 8.5 - 10.5 mg/dL [facility] Protein, Total 6.8 6.1 - 8.0 g/dL [facility] Albumin 3.8 3.2 - 5.2 g/dL [facility] Aspartate Aminotransferase 28 0 - 30 unit/L [facility] Alanine Aminotransferase 16 0 - 30 unit/L [facility] Alkaline Phosphatase 84 35 - 105 unit/L [facility] Bilirubin, Total 1.0 0.2 - 1.3 mg/dL [facility] Est Glomerular Filtration Rate 82 >=60 mL/min/1. 73 m?? [facility] Comment: This patient's estimated GFR was [...] and symptoms in addition to eGFR. Blood 01/01/2023 8:48 AM EDT 01/01/2023 9:03 AM EDT Narrative Resulting Agency Comment Spec In Lab Rea Hickey MD CHEMISTRY ORDERABLES Performing Organization Address [facility] Co de Phone Number [facility] [place] [address] * (ABNORMAL) Prothrombin Time (01/01/2023 8:48 AM EDT) [facility] Prothrombin Time 13.1(H) 9.4 - 12.5 sec [facility] International Normalization Ratio 1.1 [facility] Comment: An INR <2.0 indicates adequate procoagulant activity for hemostasis in most patients without underlying bleeding disorders, though the INR may not adequately reflect hemostatic capacity in patients with liver disease and synthetic impairment. The recommended target INR range for therapeutic anticoagulation is 2.0 ? 3.0 for most applications, though lower and higher ranges may be appropriate depending on clinical circumstances. Blood 01/01/2023 8:48 AM EDT 01/01/2023 9:03 AM EDT Narrative Resulting Agency Comment Spec In Lab Rea Hickey MD HEMATOLOGY ORDERABLE S Performing Organization Address [facility] Co de Phone Number [facility] [place] [address] * Ferritin (01/01/2023 8:48 AM EDT) [facility] Ferritin 56 30 - 400 ng/mL [facility] Comment: Pediatric reference ranges not verified at [facility], interpret with caution. Reference ranges for females greater than 50 years of age approach values for men, i.e., 30-400 ng/mL. Blood 01/01/2023 8:48 AM EDT 01/01/2023 9:03 AM EDT Narrative Resulting Agency Comment Spec In Lab Candy Clifford MD CHEMISTRY ZACK NELSON [facility] [place] [address] * Hemoglobin A1c (01/01/2023 8:48 AM EDT) Hemoglobin A1c 4.8 4.3 - 5.6 % [facility] Comment: Reference Range: 4.3 - 5.6% 5.7 - 6.4% - Increased Risk of Developing Diabetes Mellitus >= 6.5% - Consistent with diagnosis of Diabetes Mellitus In the absence of hyperglycemia (i.e. plasma glucose > 200 mg/dL) or classic symptoms of hyperglycemia a repeat measurement of HbA1c should be performed on a separate sample to confirm the diagnosis. Diagnosis and Classification of Diabetes Mellitus, Diabetes Care 2013; 36: Suppl. 1, K47-11 Estimated Average Glucose See note mg/dL [facility] Comment: Estimated Average Glucose not appropriate for patients over 70 years of age. eAG equivalents for HbA1c percentages: HbA1c(%) ?eAG(mg/dL) 6.0 ?126 6.5 ?140 7.0 ?154 7.5 ?169 8.0 ?183 8.5 ?197 9.0 ?212 9.5 ?226 10.0 ? 240 Limitations: The eAG calculation has not been validated on women, individuals below 18 years old and above 70 years old, and individuals with hemoglobinopathies. Additional resources are available on the ADA website. Guy AYON, Derrick J, Trung R, et al. ??Translating the A1C assay into estimated average glucose values. ??Diabetes Care 2008:31(8):9114-1722. Blood 01/01/2023 8:48 AM EDT 01/01/2023 9:03 AM EDT Narrative Resulting Agency Comment Spec In Lab Candy Clifford MD CHEMISTRY ORDRicarda NELSON Performing Organization Address [facility] Co de Phone Number [facility] [place] [address] * (ABNORMAL) Insulin, total (01/01/2023 8:48 AM EDT) Insulin 25.2(H) 2.6 - 24.9 mcunit/mL [facility] Comment:Reference intervals derived from fasting individuals Blood 01/01/2023 8:48 AM EDT 01/01/2023 9:03 AM EDT Narrative Resulting Agency Comment Spec In Lab Candy Clifford MD CHEMISTRY ORDE BBL EnterprisesOFELIA Performing Organization Address [facility] Co de Phone Number [facility] [place] [address] * Lipid Panel (Reflex Direct LDL) (01/01/2023 8:48 AM EDT) Cholesterol, Total 118 mg/dL [facility] Comment: Lower Risk: <200 mg/dL Average Risk: 200-239 mg/dL Higher Risk: >eg=228 mg/dL Triglyceride 75 mg/dL [facility] Comment: Average Risk/Lower Risk: <150 mg/dL Borderline High Risk: 150-199 mg/dL High Risk: 200-499 mg/dL Very High Risk: >ev=406 mg/dL HDL Cholesterol 45 mg/dL [facility] Comment: Males: ?? Higher Risk: <40 mg/dL Females: ?? Higher Risk: <50 mg/dL LDL Cholesterol 58 mg/dL [facility] Comment: Lowest Risk: <100 mg/dL Lower Risk: 100-129 mg/dL Borderline High Risk: 130-159 mg/dL High Risk: 160-189 mg/dL Very High Risk: >nu=218 mg/dL Cholesterol/HDL Ratio 2.6 ratio [facility] Lipid Interpretation See Note [facility] Comment: Lipid management should be guided by a patient? s ASCVD risk, goals and preferences. ACC/AHA Guidelines recommend high intensity statin if clinical ASCVD or LDL greater than or equal to 190 mg/dL. http://NXT-ID.com/GPZ-OKW-Ltvlmiund Adults aged 40-75 with LDL 70-189 mg/dL should have their 10 year ASCVD risk estimated with the ACC/AHA ASCVD risk client service executive http://tools.acc.org/EJVSM-Xahm-Doigbdusu/ Statin should be discussed if risk greater than or equal to 7.5% in non-diabetics. With diabetes, moderate intensity statin is recommended if risk less than 7.5%, high intensity if risk greater than or equal to 7.5%. Annual lipid monitoring on statins is not necessary. Evaluate secondary causes of Triglycerides greater than 500 mg/dL or LDL greater than 190 mg/dL: See table 6 of ACC/AHA Guideline. Lifestyle modification is a critical component of ASCVD risk reduction. Blood 01/01/2023 8:48 AM EDT 01/01/2023 9:03 AM EDT Narrative Resulting Agency Comment Spec In Lab Candy Clifford MD CHEMISTRY ZACK NELSON [facility] [place] [address] * TSH (01/01/2023 8:48 AM EDT) Thyroid Stimulating Hormone 1.28 0.27 - 4.20 mcIU/mL [facility] Comment: Reference Interval (mcIU/mL): Females: ??First Trimester: 0.23-3.88 ??Second Trimester: 0.22-3.90 ??Third Trimester: 0.44-4.66 Blood 01/01/2023 8:48 AM EDT 01/01/2023 9:03 AM EDT Narrative Resulting Agency Comment Spec In Lab Candy Clifford MD CHEMISTRY ZACK NELSON [facility] [place] [address] * Vitamin B12 (01/01/2023 8:48 AM EDT) Vitamin B12 553 232 - 1,245 pg/mL [facility] Blood 01/01/2023 8:48 AM EDT 01/01/2023 9:03 AM EDT Narrative Resulting Agency Comment Spec In Lab Candy Clifford MD CHEMISTRY ZACK NELSON Performing Organization Address City/[facility]/ZIP Co de Phone Number [facility] [place] [address] * Vitamin D, 25-Hydroxy (01/01/2023 8:48 AM EDT) Vitamin D Total 25 OH 43 21 - 100 ng/mL [facility] Vit D Interp Sufficient [facility] Blood 01/01/2023 8:48 AM EDT 01/01/2023 9:03 AM EDT Narrative Resulting Agency Comment Spec In Lab Candy Clifford MD CHEMISTRY ZACK NELSON Performing Organization Address City/[facility]/ZIP Co de Phone Number [facility] [place] [address] documented in this encounter Visit Diagnoses Diagnosis Class 3 severe obesity with serious comorbidity and body mass index (BMI) of 60.0 to 69.9 in adult, unspecified obesity type Hyperlipidemia, unspecified hyperlipidemia type Prediabetes Other abnormal glucose Hepatic cirrhosis, unspecified hepatic cirrhosis type, unspecified whether ascites present documented in this encounter Care Teams Bessemer Converter Blower Relationship Specialty Start Date End Date Justino Lucia MD PCP - General Family Medicine 10/04/21 documented as of this encounter
--- OUTSIDE RECORDS SUMMARY | 2024-07-07 13:37 | XMS_ITS | Encounter Summary ---
Author Organization Formerly [facility] [address] Care Team Providers Care Forensic Artist Name Role Phone Justino Lucia MD Primary Care Provider [phone] Encounter Details Date Type Department Care Team (Latest Contact Info) Description 04/10/2023 Travel Social History Tobacco Use Types Packs/Day [...] 07/22/2024 9:00 AM EST [place] [phone] Ana Ho MD [facility] [place] [address] 07/22/2024 10:00 AM EST Laboratory Appointment Lab [address] [place] [phone] 07/22/2024 11:00 AM EST Office [place] [phone] Ana Ho MD [facility] [place] [address] 09/15/2024 10:00 AM EST TH Visit (TeleHealth) Weight and Wellness at [facility] [place] [address] Candy Clifford MD [facility] [address] Scheduled Procedures Name Priority Associated Diagnoses Date/Ti [...] yoga, t'ai chi and qigong. Health Child Care Specialist will send hand-outs. Use resistance bands. Health Child Care Specialist will request a set be mailed. [...] opportunity to start with protein (cottage cheese, citizen of [place] yogurt, protein smoothies, chicken or chicken salad [...] for sample meal ideas in the USPS [facility] Keep food log until you are seen by the dieititian. Record everything you eat or drink, include time eaten and any emotional changes that are significant. relaxation/sleep Lifestyle Pankaj Russ Note: Try some meditation/relaxation apps when I wake in the night and can't go back to sleep. Health Child Care Specialist will send some to try. Tried apps but don't really like them as I like the quiet when going to sleep. [facility] 04/23 documented as of this encounter Visit Diagnoses Not on filedocumented in this encounter Care Teams Forensic Artist Relationship Specialty Start Date End Date Justino Lucia MD PCP - General Family Medicine 10/04/21 documented as of this encounter
--- OUTSIDE RECORDS SUMMARY | 2024-07-07 13:37 | XMS_ITS | Encounter Summary ---
Author Organization [facility] [place] [address] Care Team Providers Care Corporate Safety Manager Name Role Phone Justino Lucia MD Primary Care Provider [phone] Reason for Visit * Auth/Cert (Routine) Specialty Diagnoses / Procedures Referred By Marcelo t Referred To Contact Diagnoses Unspecified cirrhosis of liver Portal hypertension Cirrhosis with gastroesophageal varices, follow-up screening due late 2022 Procedures PRO UPPER GI ENDOSCOPY, DIAGNOSTIC PRO UPPER GI ENDOSCOPY, BIOPSY PRO UP GI ENDOSCOPY, REMV TUMOR, SNARE PRO ANESTH, UGI ENDOSCOPY NOS EGD, UPPER GI ENDOSCOPY (WRVU 2.09) Julian Jones MD [facility] GASTROENTEROLOG[facility] [place] [address] [facility] Referral ID Status Reason Start Date Expiration Date Visits Re quested Visits Authorized [id number] 1 1 Encounter Details Date Type Department Care Team (Latest Contact Info) Description 06/18/2023 10:33 AM EDT - 06/18/2023 12:40 PM EDT Hospital Encounter [place] [address] Julian Jones MD [facility] GASTROENTEROLOG[facility] [place] [address] Discharge Disposition: Home Social History Tobacco Use [...] Sign Reading Time Taken Comments Blood Pressure 87/64 06/18/2023 12:10 PM EDT Pulse 79 06/18/2023 11:07 AM EDT Temperature 36.6 ??C (97.8 ??F) 06/18/2023 11:05 AM E DT Respiratory Rate 19 06/18/2023 11:07 AM EDT Oxygen Saturation 95% 06/18/2023 12:10 PM EDT Inhaled Oxygen Concentration - - Weight 125.2 kg (276 lb) 06/18/2023 11:05 AM EDT Height 157.5 cm (5' 2) 06/18/2023 11:05 AM EDT Body Mass Index 50.48 06/18/2023 11:05 AM EDT documented in this encounter Medications at Time of Discharge [...] 03/31/2023 07/23/2023 documented as of this encounter H&P Notes * Julian Jones MD - 06/18/2023 11:15 AM EDT Gastroenterology and Hepatology Pre-Procedure History and Physical Exam Procedure: EGD: Indication: gastric varices Patient Active Problem List Diagnosis Code Atypical [...] E88.819 NAFLD (nonalcoholic fatty liver disease) K76.0 EXAM: HEENT: Airway examined, oropharynx clear Mallampati Score: II (soft palate, uvula, fauces visible) LUNGS: Clear to auscultation HEART: Regular rate and rhythm, normal S1, S2 ABDOMEN: Normal bowel sounds, soft, non tender, non distended, A/P Proceed with the planned endoscopic procedure. ASA 2 - Patient with mild systemic disease with no functional limitations Sedation Plan: anesthesia Risks and benefits of the procedure explained to the patient. Consent signed. documented in this encounter Plan of Treatment Upcoming Encounters Date Type Department Care Team (Late st Contact Info) Description 07/22/2024 9:00 AM [place] [phone] Ana Ho MD [facility] [place] [address] 07/22/2024 10:00 AM EST Laboratory Appointment Lab [address] [place] [address] 07/22/2024 11:00 AM EST Office [place] [phone] Ana Ho MD [facility] [place] [address] 09/15/2024 10:00 AM EST TH Visit (TeleHealth) [place] [address] Candy Clifford MD [facility] DR [facility] [address] Scheduled Procedures Name Priority Associated Diagnoses Date/Ti [...] yoga, t'ai chi and qigong. Health Heating Systems Installer will send hand-outs. Use resistance bands. Health Heating Systems Installer will request a set be mailed. Movement [...] opportunity to start with protein (cottage cheese, peruvian yogurt, protein smoothies, chicken or chicken salad [...] can't go back to sleep. Health Heating Systems Installer will send some to try. Tried apps but don't really like them as I like the quiet when going to sleep. [facility] 04/23 documented as of this encounter Procedures Procedure Name Priority Date/Time Associated Diagnosis Comments Upper GI Endoscopy, Diagnostic (57439) 06/18/2023 11:28 AM EDT Hepatic cirrhosis, unspecified hepatic cirrhosis type, unspecified whether ascites present Portal hypertension UPPER GI ENDOSCOPY Routine 06/18/2023 11 :21 AM EDT documented in this encounter Results * UPPER GI ENDOSCOPY (06/18/2023 11:21 AM EDT) UPPER GI ENDOSCOPY [facility] Endoscopy Procedure Date: 06/18/2023 11:21 AM ? Patient Name: Telma Richter ? Date of : 1950 ? Age: 73 ? Order #: [id number] ? Instrument Name: [id number] ? Procedure: ? Upper GI endoscopy Indications: ? Pt with cirrhosis and known small ? gastric varices r/o esophageal ? varices Providers: ? Julian Jones MDCarlos ? , ALICIA, Anna Cisse Referring : ?Justino Lucia Medicines: ? See the Anesthesia note for ? documentation of the administered ? medications Complications: ? No immediate complications. Procedure: ? The procedure, indications, ? benefits, risks and alternatives ? were explained to the patient. ? Specifically discussed were ? potential complications including, ? but not limited to, bleeding, ? perforation, infection, missing a ? cancer, and adverse medication ? reactions. The Endoscope was ? introduced through the mouth, and ? advanced to the third part of ? duodenum The upper GI endoscopy was ? accomplished without difficulty. ? The patient tolerated the procedure ? well. ? Findings: ? The examined esophagus was normal. No varices ? The Z-line was regular and was found 36 cm from the ? incisors. ? Mild portal hypertensive gastropathy was found in the ? entire examined stomach. ? A few 5 mm sessile polyps were found in the gastric ? fundus and in the gastric body. ? Type 1 very small isolated gastric varices (IGV1, ? varices located in the fundus) were found in the ? gastric fundus. These completely collapsed with ? insufflation ? The examined duodenum was normal. ? Moderate Sedation: ? Not applicable - See Anesthesia documentation Impression: ?- Normal esophagus. No varices ? - Z-line regular, 36 cm from the ? incisors. ? - Portal hypertensive gastropathy. ? - A few gastric polyps. ? - Type 1 very small isolated ? gastric varices (IGV1, varices ? located in the fundus). ? - Normal examined duodenum. ? - No specimens collected. Recommendation: ?- Repeat upper endoscopy in 1 year ? for surveillance. ? Attending Participation: ? I personally performed the entire procedure. ? __ Julian Jones MD 06/18/2023 11:44:11 AM This report has been signed electronically. Number of Addenda: 0 Note Initiated On: 06/18/2023 11:21 AM PROVATION 06/18/2023 11:2 1 AM EDT Justino Lucia MD GENERAL SURGICAL ORD ERABLES PROVATION documented in this encounter Visit Diagnoses Not on filedocumented in this encounter Administered Medications Inactive Administered Medications - up to 3 most recent administrations Medication Order MAR Action Action Date Dose Rate Site lactated ringers infusion 100 mL/hr, Intravenous, CONTINUOUS, Starting on 06/18/23 at 1130, Until 06/18/23 at 1450, Endoscopy (Day of Procedure) Restarted 06/18/2023 11:43 AM EDT New Bag 06/18/2023 11:19 AM EDT 100 mL/hr 100 mL/hr documented in this encounter Active and Recently Administered Medications Times are shown in EDT. Continuous Medication Order 06/16/2023 06/17/2023 06/18/2023 lactated ringers infusion 100 mL/hr, Intravenous, CONTINUOUS, Starting on 06/18/23 at 1130, Until 06/18/23 at 1450, Endoscopy (Day of Procedure) 1119 (New Bag - Prov ider: Tracey Kumar RN)1142 (Paused - Provider: Dulce Madsen CRNA - Comment: Switch to gravity)1143 (Restarted - Provider: Dulce Madsen CRNA) documented in this encounter Care Teams Corporate Safety Manager Relationship Specialty Start Date End Date Justino Lucia MD PCP - General Family Medicine 10/04/21 documented as of this encounter
--- OUTSIDE RECORDS SUMMARY | 2024-07-07 13:37 | XMS_ITS | Encounter Summary ---
Author Organization [facility] Address [facility] [place] [address] Care Team Providers Care Invoice Coder Name Role Phone Justino Lucia MD Primary Care Provider [phone] Encounter Details Date Type Department Care Team (Latest Contact Info) Description 02/04/2023 2:00 PM EDT TH Visit (TeleHealth) [place] [address] Kay Tao, PhD [facility] [address] [facility] [place] [address] Class 3 severe obesity with serious comorbidity and body mass index (BMI) of 50.0 to 59.9 in adult, unspecified obesity type Social History Tobacco Use Types Packs/Day [...] as of this encounter Progress Notes * Kay Tao, PhD - 02/04/2023 2:00 PM EDT TTAKE ACTION! TO PROMOTE YOUR HEALTH GROUP PROGRESS NOTE Session #7 Time Spent: 120 minutes Session 03/09 Number of participants: 9 Co-Leaders: none SUBJECTIVE: Chief Complaint: Telma Richter is a 72 y.o. female who was referred for group health-behavior intervention to enhance her engagement in obesity management OBJECTIVE: Interventions: Reviewed between session exercises and concepts from previous session Mindfulness practice via the [place] exercise Reviewed information about factors that contribute to the onset and management of obesity Introduced interpersonal effectiveness skills -- assertiveness and how it differs from passive and aggressive styles of communication. Objectives effectiveness: DEAR MAN, how to get your needs met, make a request, or turn down a request Relationship effectiveness: GIVE, how to maintain the relationship Self-respect effectiveness: FAST, how to assert your needs and maintain your relationships while preserving your self-respect ASSESSMENT: Pertinent Mental Status Exam: WNL Patient's verbal/interpersonal exchange with other participants: appropriate Telma reported that with the time management exercise she is increasingly aware of how much time she is spent sedentary. Telma reported that she has been working on addressing this and that she is proud that she has been able to walk around stores without a scooter. Telma noted that she has been working on this for a while and that she is noticing now that it has gotten easier for her. Telma alsoreported that she has been sticking with eating 3 meals/day which has also been helpful for her. PLAN: Follow-up appointment scheduled for return in 1 Weeks. Assigned Homework: Practice effective communication skills, engage in value- based actions, and complete diary card documented in this encounter Plan of Treatment Upcoming Encounters Date Type Department Care Team (Late st Contact Info) Description 07/22/2024 9:00 AM EST Appointment [place] [phone] Ana Ho MD [facility] [place] [address] 07/22/2024 10:00 AM EST Laboratory Appointment Lab [address] [place] [phone] 07/22/2024 11:00 AM EST Office [place] [phone] Ana Ho MD [facility] [place] [address] 09/15/2024 10:00 AM EST TH Visit (TeleHealth) Weight and Wellness at [facility] [place] [address] Candy Clifford MD [facility] [address] Scheduled Procedures Name Priority Associated Diagnoses Date/Ti me EGD, UPPER GI ENDOSCOPY (WRV U 2.09) Hepatic cirrhosis, unspecified hepatic cirrhosis type, unspecified whether ascites present documented as of this encounter Goals Goal Patient Goal Type Associated Problems Recent Progress Patient-Stated? Author movement Exercise On track(2021 11:16 AM EDT) No Pankaj Mcadams Note: Try gentle movement like chair yoga, t'ai chi and qigong. Health Audio Production Engineer will send hand-outs. Use resistance bands. Health Audio Production Engineer will request a set be mailed. Movement [...] opportunity to start with protein (cottage cheese, martiniqu[place] yogurt, protein smoothies, chicken or chicken salad [...] for sample meal ideas in the USPS [facility] Keep food log until you are seen by the dieititian. Record everything you eat or drink, include time eaten and any emotional changes that are significant. relaxation/sleep Lifestyle No Pankaj Mcadams Note: Try some meditation/relaxation apps when I wake in the night and can't go back to sleep. Health Audio Production Engineer will send some to try. Tried apps but don't really like them as I like the quiet when going to sleep. [facility] 04/23 documented as of this encounter Visit Diagnoses Diagnosis Class 3 severe obesity with serious comorbidity and body mass index (BMI) of 50.0 to 59.9 in adult, unspecified obesity type documented in this encounter Care Teams Invoice Coder Relationship Specialty Start Date End Date Justino Lucia MD PCP - General Family Medicine 10/04/21 documented as of this encounter
--- OUTSIDE RECORDS SUMMARY | 2024-07-07 13:37 | XMS_ITS | Encounter Summary ---
Author Organization [facility] [place] [address] Care Team Providers Care Tank Storage Supervisor Name Role Phone Justino Lucia MD Primary Care Provider [phone] Encounter Details Date Type Department Care Team (Latest Contact Info) Description 06/27/2023 Travel Social History Tobacco Use Types Packs/Day [...] 07/22/2024 9:00 AM EST [place] [phone] Ana Ho MD [facility] [place] [address] 07/22/2024 10:00 AM EST Laboratory Appointment Lab [address] [place] [phone] 07/22/2024 11:00 AM EST Office [place] [phone] Ana Ho MD [facility] [place] [address] 09/15/2024 10:00 AM EST TH Visit (TeleHealth) Weight and Wellness at [facility] [place] [place] [address] Candy Clifford MD [facility] DR [facility] [place] [address] Scheduled Procedures Name Priority Associated Diagnoses Date/Ti me EGD, UPPER GI ENDOSCOPY (WRV U 2.09) Hepatic cirrhosis, unspecified hepatic cirrhosis type, unspecified whether ascites present documented as of this encounter Goals Goal Patient Goal Type Associated Problems Recent Progress Patient-Stated? Author movement Exercise On track(2021 11:16 AM EDT) No Pankaj Mcadams Note: Try gentle movement like chair yoga, t'ai chi and qigong. Health Toe Stapler will send hand-outs. Use resistance bands. Health Toe Stapler will request a set be mailed. Movement [...] opportunity to start with protein (cottage cheese, moroccan yogurt, protein smoothies, chicken or chicken salad [...] for sample meal ideas in the USPS [facility] Keep food log until you are seen by the dieititian. Record everything you eat or drink, include time eaten and any emotional changes that are significant. relaxation/sleep Lifestyle Pankaj Russ Note: Try some meditation/relaxation apps when I wake in the night and can't go back to sleep. Health Toe Stapler will send some to try. Tried apps but don't really like them as I like the quiet when going to sleep. [facility] 04/23 documented as of this encounter Visit Diagnoses Not on filedocumented in this encounter Care Teams Tank Storage Supervisor Relationship Specialty Start Date End Date Justino Lucia MD PCP - General Family Medicine 10/04/21 documented as of this encounter
--- OUTSIDE RECORDS SUMMARY | 2024-07-07 13:37 | XMS_ITS | Encounter Summary ---
Author Organization [facility] [place] [address] Care Team Providers Care Inside Barrel Lathe Operator Name Role Phone Justino Lucia MD Primary Care Provider [phone] Encounter Details Date Type Department Care Team (Latest Contact Info) Description 04/17/2023 Travel Social History Tobacco Use Types Packs/Day [...] 07/22/2024 9:00 AM [place] [phone] Ana Ho MD [facility] [place] [address] 07/22/2024 10:00 AM EST Laboratory Appointment Lab [address] [place] [phone] 07/22/2024 11:00 AM EST Office [place] [phone] Ana Ho MD [facility] [place] [address] 09/15/2024 10:00 AM EST TH Visit (TeleHealth) Weight and Wellness at [facility] [place] [address] Candy Clifford MD [facility] DR [facility] [address] Scheduled Procedures Name Priority Associated Diagnoses Date/Ti me EGD, UPPER GI ENDOSCOPY (WRV U 2.09) Hepatic cirrhosis, unspecified hepatic cirrhosis type, unspecified whether ascites present documented as of this encounter Goals Goal Patient Goal Type Associated Problems Recent Progress Patient-Stated? Author movement Exercise On track(2021 11:16 AM EDT) No Pankaj Mcadams Note: Try gentle movement like chair yoga, t'ai chi and qigong. Health Alliances Consultant will send hand-outs. Use resistance bands. Health Alliances Consultant will request a set be mailed. Movement [...] opportunity to start with protein (cottage cheese, [place]aman[place] yogurt, protein smoothies, chicken or chicken salad [...] for sample meal ideas in the USPS [facility] Keep food log until you are seen by the dieititian. Record everything you eat or drink, include time eaten and any emotional changes that are significant. relaxation/sleep Lifestyle Pankaj Russ Note: Try some meditation/relaxation apps when I wake in the night and can't go back to sleep. Health Alliances Consultant will send some to try. Tried apps but don't really like them as I like the quiet when going to sleep. [facility] 04/23 documented as of this encounter Visit Diagnoses Not on filedocumented in this encounter Care Teams Inside Barrel Lathe Operator Relationship Specialty Start Date End Date Justino Lucia MD PCP - General Family Medicine 10/04/21 documented as of this encounter
--- OUTSIDE RECORDS SUMMARY | 2024-07-07 13:37 | XMS_ITS | Encounter Summary ---
Author Organization Formerly [facility] [address] Care Team Providers Care Technical Communication Teacher Name Role Phone Justino Lucia MD Primary Care Provider [phone] Encounter Details Date Type Department Care Team (Latest Contact Info) Description 01/25/2023 Travel Social History Tobacco Use Types Packs/Day [...] 07/22/2024 9:00 AM [place] [phone] Ana Ho MD [facility] [place] [address] 07/22/2024 10:00 AM EST Laboratory Appointment Lab [address] [place] [phone] 07/22/2024 11:00 AM EST Office [place] [phone] Ana Ho MD [facility] [place] [address] 09/15/2024 10:00 AM EST TH Visit (TeleHealth) Weight and Wellness at [facility] [place] [address] Candy Clifford MD [facility] DR [facility] [address] Scheduled Procedures Name Priority Associated Diagnoses Date/Ti [...] yoga, t'ai chi and qigong. Health Child Specialist will send hand-outs. Use resistance bands. Health Child Specialist will request a set be mailed. [...] opportunity to start with protein (cottage cheese, [place] yogurt, protein smoothies, chicken or chicken salad [...] sample meal ideas in the USPS [facility] Keep food log until you are seen by the dieititian. Record everything you eat or drink, include time eaten and any emotional changes that are significant. relaxation/sleep Lifestyle Pankaj Russ Note: Try some meditation/relaxation apps when I wake in the night and can't go back to sleep. Health Child Specialist will send some to try. Tried apps but don't really like them as I like the quiet when going to sleep. [facility] 04/23 documented as of this encounter Visit Diagnoses Not on filedocumented in this encounter Care Teams Technical Communication Teacher Relationship Specialty Start Date End Date Justino Lucia MD PCP - General Family Medicine 10/04/21 documented as of this encounter
--- OUTSIDE RECORDS SUMMARY | 2024-07-07 13:37 | XMS_ITS | Encounter Summary ---
Author Organization [facility] [place] [address] Care Team Providers Care Airworthiness Safety Inspector Name Role Phone Justino Lucia MD Primary Care Provider Reason for Visit * Auth/Cert (Routine) Specialty Diagnoses / Procedures Referred By Marcelo tucker Referred To Contact Diagnoses Unspecified cirrhosis of liver Portal hypertension Cirrhosis with gastroesophageal varices, follow-up screening due late 2022 Procedures PRO UPPER GI ENDOSCOPY, DIAGNOSTIC PRO UPPER GI ENDOSCOPY, BIOPSY PRO UP GI ENDOSCOPY, REMV TUMOR, SNARE PRO ANESTH, UGI ENDOSCOPY NOS EGD, UPPER GI ENDOSCOPY (WRVU 2.09) Julian Jones MD [facility] [place] [address] [facility] Referral ID Status Reason Start Date Expiration Date Visits Re quested Visits Authorized [id number] 1 1 Encounter Details Date Type Department Care Team (Late Contact Info) Description 06/18/2023 11:30 AM EDT - 06/18/2023 12:00 PM EDT Surgery [place] [address] Julian Jones MD [facility] [place] [address] EGD, UPPER GI ENDOSCOPY (WRVU 2.09) Social History Tobacco Use Types Packs/Day Years [...] Sign Reading Time Taken Comments Blood Pressure 76/48 06/18/2023 12:00 PM EDT Pulse 79 06/18/2023 11:07 AM EDT Temperature 36.6 ??C (97.8 ??F) 06/18/2023 11:05 AM E DT Respiratory Rate 19 06/18/2023 11:07 AM EDT Oxygen Saturation 95% 06/18/2023 12:00 PM EDT Inhaled Oxygen Concentration - - [...] 07/22/2024 9:00 AM EST Appointment [place] [phone] Ana Ho MD [facility] [place] [address] 07/22/2024 10:00 AM EST Laboratory Appointment Lab [address] [address] 07/22/2024 11:00 AM EST Office [place] [phone] Ana Ho MD [facility] [place] [address] 09/15/2024 10:00 AM EST TH Visit (TeleHealth) [place] [address] Candy Clifford MD [facility] [place] [address] Scheduled Procedures Name Priority Associated Diagnoses Date/Ti me EGD, UPPER GI ENDOSCOPY (WRV U 2.09) Hepatic cirrhosis, unspecified hepatic cirrhosis type, unspecified whether ascites present documented as of this encounter Goals Goal Patient Goal Type Associated Problems Recent Progress Patient-Stated? Author movement Exercise On track(2021 11:16 AM EDT) No Pankaj Mcadams Note: Try gentle movement like chair yoga, t'ai chi and qigong. Health Elevator Technician will send hand-outs. Use resistance bands. Health Elevator Technician will request a set be mailed. Movement [...] opportunity to start with protein (cottage cheese, vietnamese yogurt, protein smoothies, chicken or chicken salad [...] and can't go back to sleep. Health Elevator Technician will send some to try. Tried apps but don't really like them as I like the quiet when going to sleep. [facility] 04/23 documented as of this encounter Procedures Procedure Name Priority Date/Time Associated Diagnosis Comments Upper GI Endoscopy, Diagnostic (82538) 06/18/2023 11:28 AM EDT Hepatic cirrhosis, unspecified hepatic cirrhosis type, unspecified whether ascites present Portal hypertension UPPER GI ENDOSCOPY Routine 06/18/2023 11 :21 AM EDT documented in this encounter Results * UPPER GI ENDOSCOPY (06/18/2023 11:21 AM EDT) UPPER GI ENDOSCOPY [facility] Endoscopy Procedure Date: 06/18/2023 11:21 AM ? Patient Name: Telma Richter ? Date of : 1950 ? Age: 73 ? Order #: [id number] ? Instrument Name: [id number] ? Procedure: ? Upper GI endoscopy Indications: ? Pt with cirrhosis and known small ? gastric varices r/o esophageal ? varices Providers: ? Julian Jones MD, Carlos Camacho ? , RN, Anna Cisse Referring : ?Justino Lucia Medicines: [...] PROVATION documented in this encounter Visit Diagnoses Diagnosis Hepatic cirrhosis, unspecified hepatic cirrhosis type, unspecified whether ascites present Portal hypertension documented in this encounter Administered Medications Inactive Administered Medications - up to 3 most recent administrations Medication Order MAR Action Action Date Dose Rate Site lactated ringers infusion 100 mL/hr, Intravenous, CONTINUOUS, Starting on Sat06/18/23 at 1130, Until Sat06/18/23 at 1450, Endoscopy (Day of Procedure) Restarted 06/18/2023 11:43 AM EDT New Bag 06/18/2023 11:19 AM EDT 100 mL/hr 100 mL/hr documented in this encounter Active and Recently Administered Medications Times are shown in EDT. Continuous Medication Order 06/16/2023 06/17/2023 06/18/2023 lactated ringers infusion 100 mL/hr, Intravenous, CONTINUOUS, Starting on Sat06/18/23 at 1130, Until Sat06/18/23 at 1450, Endoscopy (Day of Procedure) 1119 (New Bag - Prov ider: Tracey Kumar RN)1142 (Paused - Provider: Ducle Madsen CRNA - Comment: Switch to gravity)1143 (Restarted - Provider: Dulce Madsen CRNA) documented in this encounter Care Teams Airworthiness Safety Inspector Relationship Specialty Start Date End Date Justino Lucia MD PCP - General Family Medicine 10/04/21 documented as of this encounter
--- OUTSIDE RECORDS SUMMARY | 2024-07-07 13:37 | XMS_ITS | Encounter Summary ---
Author Organization [facility] Address [facility] [place] [address] Care Team Providers Care Rail Flaw Detector Operator Name Role Phone Justino Lucia MD Primary Care Provider [phone] Encounter Details Date Type Department Care Team (Latest Contact Info) Description 01/14/2023 2:00 PM EDT TH Visit (TeleHealth) [place] [address] Kay Tao, PhD [facility] [address] [facility] [place] [address] Class 3 severe obesity with serious comorbidity [...] Progress Notes * Kay Tao, PhD - 01/14/2023 2:00 PM EDT TAKE ACTION! TO PROMOTE YOUR HEALTH GROUP PROGRESS NOTE Session #5 Time Spent: 120 minutes Session 01/07 Number of participants: 10 Co-Leaders: none SUBJECTIVE: Chief Complaint: Telma Richter is a 72 y.o. female who was referred for group health-behavior intervention to enhance her engagement in obesity management OBJECTIVE: Interventions: ??? Reviewed between session exercises and concepts from previous session ??? Practiced the skill urge surfing ?? Introduced concept of defusion and how it can be used to get unstuck from unwanted thoughts/emotions/sensations ?? Used multiple experiential practices to teach content ([place], I can't lift my arm, drop the rope) ASSESSMENT: Pertinent Mental Status Exam: WNL Patient's verbal/interpersonal exchange with other participants: appropriate Telma reported that overall she is managing her health well. Telma shared a recent experience wherejanie got a milkshake together with her family and was able to stop drinking when she was full EVEN THOUGH there was still milkshake left and it tasted good. This is a change in behavior as Telma noteda hx of ignoring satiety cues when consuming something pleasurable in the past. Telma's action planfor the coming week is: maintain previous goals and will practice walking around stores without using a motorcart. PLAN: Follow-up appointment scheduled for return in 1 Weeks. Assigned Homework: Practice defusing from unwanted thoughts/emotions/sensations, engage in value-based actions, and complete diary card documented in this encounter Plan of Treatment Upcoming Encounters Date Type Department Care Team (Late st Contact Info) Description 07/22/2024 9:00 AM EST [place]ointment [place] [phone] Ana Ho MD [facility] [place] [address] 07/22/2024 10:00 AM EST Laboratory Appointment Lab [address] [place] [phone] 07/22/2024 11:00 AM EST Office [place] [phone] Ana Ho MD [facility] [place] [address] 09/15/2024 10:00 AM EST TH Visit (TeleHealth) [place] [phone] Candy Clifford MD [facility] DR [facility] [address] Scheduled Procedures Name Priority Associated Diagnoses Date/Ti me EGD, UPPER GI ENDOSCOPY (WRV U 2.09) Hepatic cirrhosis, unspecified hepatic cirrhosis type, unspecified whether ascites present documented as of this encounter Goals Goal Patient Goal Type Associated Problems Recent Progress Patient-Stated? Author movement Exercise On track(2021 11:16 AM EDT) No Pankaj Mcadams Note: Try gentle movement like chair yoga, t'ai chi and qigong. Health Choir Accompanist will send hand-outs. Use resistance bands. Health Choir Accompanist will request a set be mailed. Movement [...] opportunity to start with protein (cottage cheese, south african yogurt, protein smoothies, chicken or chicken salad [...] and can't go back to sleep. Health Choir Accompanist will send some to try. Tried apps but don't really like them as I like the quiet when going to sleep. [facility] 04/23 documented as of this encounter Visit Diagnoses Diagnosis Class 3 severe obesity with serious comorbidity and body mass index (BMI) of 50.0 to 59.9 in adult, unspecified obesity type documented in this encounter Care Teams Rail Flaw Detector Operator Relationship Specialty Start Date End Date Justino Lucia MD PCP - General Family Medicine 10/04/21 documented as of this encounter
--- OUTSIDE RECORDS SUMMARY | 2024-07-07 13:37 | XMS_ITS | Encounter Summary ---
Author Organization [facility] Address [facility] [place] [address] Care Team Providers Care Steam Boiler Fireman Name Role Phone Justino Lucia MD Primary Care Provider [phone] Encounter Details Date Type Department Care Team (Latest Contact Info) Description 02/11/2023 2:00 PM EDT TH Visit (TeleHealth) [place] [address] Kay Tao, PhD [facility] [address] [facility] [address] Class 3 severe obesity with serious comorbidity [...] Progress Notes * Kay Tao, PhD - 02/11/2023 2:00 PM EDT TAKE ACTION! TO PROMOTE YOUR HEALTH GROUP PROGRESS NOTE Session #8 Time Spent: 120 minutes Session 04/09 Number of participants: 10 Co-Leaders: none SUBJECTIVE: Chief Complaint: Telma Richter is a 72 y.o. female who was referred for group health-behavior intervention to enhance her engagement in obesity management OBJECTIVE: Interventions: Reviewed between session exercises and concepts from previous session Reviewed the emotional eating/binge eating model in order to assist patients with linking skills learnt in group to common traps that sustain these unhelpful behaviors To promote relapse prevention: Explored the difference between a lapse and relapse in behavior Introduced the concept of committed action with the hiker analogy Had patients complete a relapse prevention plan in session ASSESSMENT: Pertinent Mental Status Exam: WNL Patient's verbal/interpersonal exchange with other participants: malorie Hollis reported that she is proud of the progress she has made in caring for her health. Telma notedthat she has been walking more, and is now able to walk more independently (w/o cane or leaning on cart) than she has the past. PLAN: This is the final group session; thus no additional follow was scheduled at this time. documented in this encounter Plan of Treatment Upcoming Encounters Date Type Department Care Team (Late st Contact Info) Description 07/22/2024 9:00 AM EST Appointment [place] [address] Ana Ho MD [facility] [place] [address] 07/22/2024 10:00 AM EST Laboratory Appointment Lab [address] [place] [phone] 07/22/2024 11:00 AM EST Office [place] [phone] Ana Ho MD [facility] [place] [address] 09/15/2024 10:00 AM EST TH Visit (TeleHealth) [place] [phone] Candy Clifford MD [facility] DR [facility]OL[facility] [place] [address] Scheduled Procedures Name Priority Associated Diagnoses Date/Ti me EGD, UPPER GI ENDOSCOPY (WRV U 2.09) Hepatic cirrhosis, unspecified hepatic cirrhosis type, unspecified whether ascites present documented as of this encounter Goals Goal Patient Goal Type Associated Problems Recent Progress Patient-Stated? Author movement Exercise On track(2021 11:16 AM EDT) No Pankaj Mcadams Note: Try gentle movement like chair yoga, t'ai chi and qigong. Health Chargemaster Analyst will send hand-outs. Use resistance bands. Health Chargemaster Analyst will request a set be mailed. Movement [...] opportunity to start with protein (cottage cheese, yoruba yogurt, protein smoothies, chicken or chicken salad [...] and can't go back to sleep. Health Chargemaster Analyst will send some to try. Tried apps but don't really like them as I like the quiet when going to sleep. [facility] 04/23 documented as of this encounter Visit Diagnoses Diagnosis Class 3 severe obesity with serious comorbidity and body mass index (BMI) of 50.0 to 59.9 in adult, unspecified obesity type documented in this encounter Care Teams Steam Boiler Fireman Relationship Specialty Start Date End Date Justino Lucia MD PCP - General Family Medicine 10/04/21 documented as of this encounter
--- OUTSIDE RECORDS SUMMARY | 2024-07-07 13:37 | XMS_ITS | Encounter Summary ---
Author Organization [facility] Address [facility] [place] [address] Care Team Providers Care Consulting Practice Director Name Role Phone Justino Lucia MD Primary Care Provider [phone] Encounter Details Date Type Department Care Team (Late st Contact Info) Description 01/25/2023 9:30 AM EDT Office [place] [address] Candy Clifford MD [facility] DR [facility] [address] Class 3 severe obesity with serious comorbidity and body mass index (BMI) of 50.0 to 59.9 in adult, unspecified obesity type; Insulin resistance; Prediabetes; Hyperlipidemia, unspecified hyperlipidemia type; NAFLD (nonalcoholic fatty liver disease); Hypertension, unspecified type Social History Tobacco Use [...] Sign Reading Time Taken Comments Blood Pressure 139/57 01/25/2023 8:56 AM EDT Pulse 76 01/25/2023 8:56 AM EDT Temperature - - Respiratory Rate - - Oxygen Saturation - - Inhaled Oxygen Concentration - - Weight 133.9 kg (295 lb 1.6 oz) 01/25/2023 8:56 AM EDT Height 157.5 cm (5' 2) 01/25/2023 8:56 AM EDT Body Mass Index 53.97 01/25/2023 8:56 AM EDT documented in this encounter Progress Notes * Candy Clifford MD - 01/25/2023 9:30 AM EDTSummary: 7th visit with MD [facility] Patient Name: Telma Richter Date of : 1950 Age: 72 y.o. Justino Lucia MD Thank you for referring Telma Richter to the [facility] Center. I saw her for a follow-upvisit today, 01/25/23. Please see changes to care as documented in the assessment and plan. CHIEF COMPLAINT: F/u for treatment of WHO Class 3 / EOSS Stage 2 Obesity defined by initial BMI and comorbidities:HTN, Hyperlipidemia and Vitamin D deficiency. GERD. OA. This is Visit #7 [facility] visit for this 72 y.o. patient. Weight gain due to: Unclear - sits at home; notes gaining weight when she moved here from [place] to take care of her dad about [...] - 40 lbs = 12% TBW lost) [facility] Team: Lacey Martino RD and Pankaj Mcadams, [facility] HPI Having some issues with light-headedness, dizziness when moves rapidly. A little chest pain, now and then, I know it is from my hernia - I am sure it is gas. Enjoying the ACT group. PILLARS Stress: I have had a little bit of stress, not sure what it is. Maybe money and all of that crap. My daughter does stress me out, not around a lot, happy to have her grand kids (13, 11, 9 - all girls). Sleep: still not sleeping. Not sure what the problem is. In bed 8 PM, asleep 11- 12 AM, watching TV.Up at 530-6 AM. Napping during the day. Notes my mind is going constantly, even trying to listen towhite noise doesn't work. Movement: stopped bone builders, too much with PT. Not sure when done with PT. Recall: B - steak and eggs L - skipped D - pizza - 2 slices Drinking - a little water, iced coffee. I do not drink enough water. AOM: Currently taking: Ozempic 2 mg AOM HX: Metformin XR - did not tolerate Medication C/I: GB? S/p CCY Any h/o pancreatitis? NO Any h/o kidney stones? NO Any h/o or FHx of thyroid CA (MTC?) NO Any h/o kidney disease/failure? NO Any h/o glaucoma? NO ?? Gynecologic: using/taking reliable contraception? Menopause COMORBIDITIES ADDRESSED: SHANIQUA - no HTN - on multiple meds HL - on statin FLD - HCV cirrhosis; ? FLD Diabetes spectrum - prediabetes, IR Obesogenic meds: metoprolol, gabapentin REVIEW OF LABS/DIAGNOSIS SINCE LAST VISIT Liver Fibrosis Score (Fib 4) was 2.38 at 01/25/2023 2:43 PM Risk of Fibrosis Low Intermediate High NAFLD Less than 1.3 1.3-2.67 Greater than 2.67 Hepatitis C Less than 1.45 1.45-3.25 Greater than 3.25 Computed LUCAS Insulin Resistance Calculation Score unavailable. Necessary lab results were not found in the last year. [x] I reviewed past / interim records [...] []Surgery []Culinary []ACT []Monthly Lifestyle Classes Discussion 01/25/23: Current pillars reviewed. Continue to do very well. Will call PCP about dizziness, may need BP meds adjusted. Complete ACT and will engage in maintenance classes as well. Continue Ozempic 2 mg. Reviewed dietary goals - protein at every eating event, try for one fruit or vegy a day. Cont f/u. 01/18/2022 4:00 PM [facility] PATHWAY - ADULT Obesity Medicine Activate Goals ??? movement Try gentle movement like chair yoga, t'ai chi and qigong. [facility] will send hand-outs. Use resistance bands. [facility] will request a set be mailed. ??? Movement Look around town, senior center, gyms, for a class to participate in, bone builders or gentle stretching. ??? Nutrition Nutrition Goals updated today: 12/11/22 TF 1. Focus on reaching adequate protein intake - aim for 60-80 grams (handout attached in after visitsummary) 2. Consider the 3 eating events per day to be an opportunity to start with protein (cottage cheese,uruguayan yogurt, protein smoothies, chicken or chicken salad [...] for sample meal ideas in the USPS [facility] Keep food log until you are seen by the dieititian. Record everything you eat or drink, include time eaten and any emotional changes that are significant. ??? relaxation/sleep Try some meditation/relaxation apps when I wake in the night and can't go back to sleep. [facility] will send some to try. Tried apps but don't really like them as I like the quiet when going to sleep. [facility] 04/23 VITAL SIGNS: Vitals: 01/25/23 0856 BP: 139/57 BP Location (NBP): Right arm Patient Position: Sitting BP Cuff Sizes: Large Adult (32-43 cm) Pulse: 76 Weight: 133.9 kg (295 lb 1.6 oz) Height: 157.5 cm (5' 2) Body mass index is 53.97 kg/m??. PHYSICAL EXAM: Gen: Alert and appropriate, NAD. LABS: Lab Results Component Value Date WBC 4.8 01/01/2023 RBC 4.81 01/01/2023 HGB 14.7 01/01/2023 HCT 43.0 01/01/2023 MCV 89.4 01/01/2023 MCH 30.6 01/01/2023 MCHC 34.2 01/01/2023 PLATELET 209 01/01/2023 RDWCV 13.4 01/01/2023 Lab Results Component Value Date NA 142 01/01/2023 K 3.9 01/01/2023 CL 105 01/01/2023 CO2 29 01/01/2023 BUN 12 01/01/2023 CREATININE 0.77 01/01/2023 GLUCOSE 90 01/01/2023 CALCIUM 9.2 01/01/2023 ESTGFR 82 01/01/2023 Lab Results Component Value Date ALT 16 01/01/2023 AST 28 01/01/2023 ALKPHOS 84 01/01/2023 BILITOT 1.0 01/01/2023 BILIDIR 0.3 02/07/2016 ALBUMIN 3.8 01/01/2023 PROT 6.8 01/01/2023 Lab Results Component Value Date CHLPL 118 01/01/2023 HDL 45 01/01/2023 CHOLHDL 2.6 01/01/2023 TRIG 75 01/01/2023 LDLCHOL 58 01/01/2023 Lab Results Component Value Date HA1C 4.8 01/01/2023 HA1C 5.5 01/25/2022 Lab Results Component Value Date TSH 1.28 01/01/2023 Lab Results Component Value Date LABINSU 25.2 (H) 01/01/2023 No results found for: GLUCFASTING Lab Results Component Value Date [id number] 553 01/01/2023 25-OH Vit D Total (ng/mL) Date Value Status 01/01/2023 43 Final No results found for: URICACID ASSESSMENT AND PLAN: Telma M Rober was seen in follow up today for [...] 50.0 to 59.9 in adult,unspecified obesity type Insulin resistance Prediabetes Hyperlipidemia, unspecified hyperlipidemia type NAFLD (nonalcoholic fatty liver disease) Hypertension, unspecified type No orders of the defined types were placed in this encounter. Return in about 3 months (around 04/27/2023) for In person or Zoom, With me. 1 min chart review 20 min [id number] Visit time 3 min Documentation time I [...] 07/22/2024 9:00 AM [place] [address] Ana Ho MD [facility] [place] [address] 07/22/2024 10:00 AM EST Laboratory Appointment Lab [address] [place] [phone] 07/22/2024 11:00 AM EST Office [place] [address] Ana Ho MD [facility] [place] [address] 09/15/2024 10:00 AM EST TH Visit (TeleHealth) [place] [phone] Candy Clifford MD [facility] DR [facility] [address] Scheduled Procedures Name Priority Associated Diagnoses Date/Ti me EGD, UPPER GI ENDOSCOPY (WRV U 2.09) Hepatic cirrhosis, unspecified hepatic cirrhosis type, unspecified whether ascites present documented as of this encounter Goals Goal Patient Goal Type Associated Problems Recent Progress Patient-Stated? Author movement Exercise On track(2021 11:16 AM EDT) No Pankaj Mcadams Note: Try gentle movement like chair yoga, t'ai chi and qigong. [facility] will send hand-outs. Use resistance bands. [facility] will request a set be mailed. Movement [...] opportunity to start with protein (cottage cheese, uruguayan yogurt, protein smoothies, chicken or chicken salad [...] for sample meal ideas in the USPS [facility] Keep food log until you are seen by the dieititian. Record everything you eat or drink, include time eaten and any emotional changes that are significant. relaxation/sleep Lifestyle No Pankaj Mcadams Note: Try some meditation/relaxation apps when I wake in the night and can't go back to sleep. [facility] will send some to try. Tried apps but don't really like them as I like the quiet when going to sleep. [facility] 04/23 documented as of this encounter Visit Diagnoses Diagnosis Class 3 severe obesity with serious comorbidity and body mass index (BMI) of 50.0 to 59.9 in adult, unspecified obesity type Insulin resistance Dysmetabolic Syndrome X Prediabetes Other abnormal glucose Hyperlipidemia, unspecified hyperlipidemia type NAFLD (nonalcoholic fatty liver disease) Other chronic nonalcoholic liver disease Hypertension, unspecified type documented in this encounter Care Teams Consulting Practice Director Relationship Specialty Start Date End Date Justino Lucia MD PCP - General Family Medicine 10/04/21 documented as of this encounter
--- OUTSIDE RECORDS SUMMARY | 2024-07-07 13:37 | XMS_ITS | Encounter Summary ---
Author Organization [facility] [place] [address] Care Team Providers Care Trailer Rental Clerk Name Role Phone Justino Lucia MD Primary Care Provider [phone] Reason for Visit * Auth/Cert (Routine) Specialty [...] GI ENDOSCOPY (WRVU 2.09) Julian Jones MD [facility] [place] [address] [facility] Referral ID Status Reason Start Date Expiration Date Visits Re quested Visits Authorized [id number] 1 1 Encounter Details Date Type Department Care Team (Late st Contact Info) Description 06/18/2023 11:25 AM EDT Anesthesia [place] [address] Jim Soni MD [facility] [place] [address] Anesthesia Record Procedure Summary Procedure Name Responsible Anesthesiologist Anesthesia Start Time Anesthesia Stop Time EGD, UPPER GI ENDOSCOPY (WRVU 2.09) (Trunk) Jim Soni MD 06/18/23 1125 06/18/23 1147 Events Date Time Event Comment 06/18/2023 0802 1125 AN Verify 1125 Start 1128 An Start Data 1131 An Induction 1133 Anesthesia Ready 1143 an stop data 1147 Recovery or ICU Handoff Dione ent care was transferred to the destination unit staff after review of the patient's medical history, current anesthetic/surgical status and plan, according to the Provider Handoff Checklist. 1147 Stop Meds Name Total IV Lidocaine 100 mg Propofol INF 137.72 mg Dexmedetomidine 8 mcg lactated ringers infusion 200 mL * Agents Name O2 Auxiliary Flowmeter 1 * Blood No blood administrations on file. Lines, Drains, and Airways Type Details Placement Removal PIV 06/18/23; 1119; over -the-needle catheter system; 22 gauge; metacarpal vein (top of hand), right; CELESTINO RN; distraction; 0 06/18/23 1119 by Tracey Kumar RN documented in this encounter Social History Tobacco Use Types Packs/Day Years Used Date Smoking Tobacco: Former Cigarettes 3 42 Smokeless Tobacco: Never Alcohol Use Standard Drinks/Week Comments No 0 (1 standard drink = 0.6 oz pur e alcohol) Sex and Gender Information Value Date Recorded Sex Assigned at Not on file Gender Identity Not on file Sexual Orientation Not on file documented as of this encounter OR Notes * Anesthesia Postprocedure Evaluation - Jim Soni MD - 06/18/2023 11:46 AM EDT Department of Anesthesiology Post-procedure Note Patient: eTlma Richter Procedure Summary Date: 06/18/23 Room / Location: [facility] ENDO 5 / [facility] ENDOSCOPY Anesthesia Start: 1125 Anesthesia Stop: Procedure: EGD, UPPER GI ENDOSCOPY (WRVU 2.09) (Trunk) Diagnosis: Hepatic cirrhosis, unspecified hepatic cirrhosis type, unspecified whether ascites present Portal hypertension (Cirrhosis with gastroesophageal varices, follow-up screening due late 2022) Surgeons: Julian Jones MD Responsible Provider: Jim Soni MD Anesthesia Type: MAC ASA Status: 3 All Anesthesia Providers: Anesthesiologist: Jim Soni MD WINE CONSULTANT: Dulce Madsen CRNA Vitals Value Taken Time BP Temp Pulse Resp SpO2 Pain Level Patient Location: PACU[facility] Level of Consciousness: Awake and Alert Pain Management: Satisfactory Analgesia PONV: None Cardiovascular Status: At Baseline and Hemodynamically Stable Respiratory Status: At Baseline and Room Air Postoperative Fluid Status: Intravascular EUvolemia Possible Anesthetic Complications: NONE apparent at time of evaluation Final Primary Anesthesia Type: MAC (The anesthetic type performed was the same as planned.) Comments: Jim Soni MD * Anesthesia Preprocedure Evaluation - Jim Soni MD - 06/18/2023 8:01 AM EDT Pre-Anesthesia Evaluation for: Telma Richter a 73 y.o. female. Procedure(s): EGD, UPPER GI ENDOSCOPY Patient Active Problem List Diagnosis Date Noted ??? NAFLD (nonalcoholic fatty liver disease) 05/14/2022 ??? Insulin resistance 03/04/2022 ??? History of alcohol abuse 12/14/2021 ??? Hyperlipidemia 12/14/2021 ??? History of colon polyps 12/14/2021 ??? Osteoarthritis of hip 12/14/2021 ??? History of shoulder replacement 12/14/2021 ??? Portal hypertension 12/14/2021 ??? Prediabetes 12/14/2021 ??? Class 3 severe obesity with serious comorbidity and body mass index (BMI) of 50.0 to 59.9 in adult 02/18/2018 ??? Frequent PVCs 05/21/2017 ??? Edema of lower extremity 05/21/2017 ??? Epistaxis 05/21/2017 ??? Anxiety 05/21/2017 ??? Depression 05/21/2017 ??? Anemia 05/21/2017 ??? Osteopenia 05/21/2017 ??? PSVT (paroxysmal supraventricular tachycardia) 05/21/2017 ??? Cirrhosis 05/21/2017 ??? History of hepatitis C 05/21/2017 ??? Asthma 05/21/2017 ??? Hypertension 05/21/2017 ??? Atypical angina 02/07/2016 Past Medical History: Diagnosis Date ??? Anemia 05/21/2017 ??? Anxiety 05/21/2017 ??? Asthma 05/21/2017 ??? CAD (coronary artery disease) 05/21/2017 ??? Chest tightness or pressure 05/21/2017 ??? Cirrhosis 05/21/2017 ??? Depression 05/21/2017 ??? Edema of lower extremity 05/21/2017 ??? Epistaxis 05/21/2017 ??? Fatigue 05/21/2017 ??? Frequent PVCs 05/21/2017 ??? HCV (hepatitis C virus) 05/21/2017 ??? Hypertension 05/21/2017 ??? Hypoglycemia 05/21/2017 ??? Osteopenia 05/21/2017 ??? PSVT (paroxysmal supraventricular tachycardia) 05/21/2017 ??? SOB (shortness of breath) 05/21/2017 Past Surgical History: Procedure Laterality Date ??? CARDIAC CATHERIZATION ??? PRO COLONOSCOPY, REMV LESN, SNARE N/A 06/05/2022 COLONOSCOPY, POLYPECTOMY, REMOVAL LESION BY SNARE (WRVU 4.67) [facility] ??? PRO UPPER GI ENDOSCOPY, DIAGNOSTIC N/A 06/05/2022 EGD, UPPER GI ENDOSCOPY performed by Leo Rojas MD at [facility] ENDOSCOPY Social History Tobacco Use ??? Smoking status: Former Packs/day: 3.00 Years: 42.00 Additional pack years: 0.00 Total pack years: 126.00 Types: Cigarettes ??? Smokeless tobacco: Never Substance Use Topics ??? Alcohol use: No Social History Substance and Sexual Activity Drug Use Not Currently ??? Types: Marijuana Comment: QHS to help her sleep No Known Allergies Medications: MAR and/or home medications have been reviewed. Physical Exam: Preprocedure Vitals Current as of 06/04/22 1529 No BP, pulse, respiration, SpO2, or temperature recorded. Height: Weight: BMI: IBW: Airway Assessment: Mallampati: II TM distance: >3 FB Neck ROM: full Cardiovascular Assessment: system normal Pulmonary Assessment: pulmonary exam normal Dental Assessment: Misc Assessment: Patient is wearing No contact(s). IV access: Peripheral line Last Filed Perioperative Cognitive Screening None Anesthesia Plan: ASA 3 MAC, with a(n) intravenous induction 73 yr old F pmhx cirrhosis, morbid obesity, HTN, asthma, pSVT, non obstructing CAD based on 2016 cath, 2016 ECHO with PASP 40-45 otherwise unremarkable presenting for endoscopy NPO appropriate, denies GERD, <4 mets, ROS negative except as above. Available labs and imaging reviewed, unremarkable ECHO with normal biventricular function, mild aortic sclerosis. Plan: [facility] Region - Other Informed Consent: Anesthetic plan and risks discussed with patient. Use of blood products discussed with patient who consented to blood products. Plan discussed with WINE CONSULTANT and attending. Anesthesia Screening documented in this encounter Plan of Treatment Upcoming Encounters Date Type Department Care Team (Late st Contact Info) Description 07/22/2024 9:00 AM EST [place] [address] Ana Ho MD [facility] [place] [address] 07/22/2024 10:00 AM EST Laboratory Appointment Lab [address] [place] [phone] 07/22/2024 11:00 AM EST Office [place] [phone] Ana Ho MD [facility] [place] [address] 09/15/2024 10:00 AM EST TH Visit (TeleHealth) [place] [phone] Candy Clifford MD [facility] [address] Scheduled Procedures Name Priority Associated Diagnoses Date/Ti me EGD, UPPER GI ENDOSCOPY (WRV U 2.09) Hepatic cirrhosis, unspecified hepatic cirrhosis type, unspecified whether ascites present documented as of this encounter Goals Goal Patient Goal Type Associated Problems Recent Progress Patient-Stated? Author movement Exercise On track(2021 11:16 AM EDT) Pankaj Russ Note: Try gentle movement like chair yoga, t'ai chi and qigong. Health Delicatessen Manager will send hand-outs. Use resistance bands. Health Delicatessen Manager will request a set be mailed. [...] opportunity to start with protein (cottage cheese, greenlandic yogurt, protein smoothies, chicken or chicken salad [...] and can't go back to sleep. Health Delicatessen Manager will send some to try. Tried apps but don't really like them as I like the quiet when going to sleep. [facility] 04/23 documented as of this encounter Visit Diagnoses Not on filedocumented in this encounter Administered Medications Inactive Administered Medications - up to 3 most recent administrations Medication Order MAR Action Action Date Dose Rate Site dexmedeTOMIDine (Precedex) (4 mcg/mL) bolus injection (Anesthsia) Intravenous, PRN, Starting on Sat06/18/23 at 1132, Until Sat06/18/23 at 1147, Anesthesia Intra-op, Routine Given 06/18/2023 11:32 AM EDT 8 mcg lactated ringers infusion 100 mL/hr, Intravenous, CONTINUOUS, Starting on Sat06/18/23 at 1130, Until Sat06/18/23 at 1450, Endoscopy (Day of Procedure) Restarted 06/18/2023 11:43 AM EDT New Bag 06/18/2023 11:19 AM EDT 100 mL/hr 100 mL/hr lidocaine (pf) (Xylocaine) (20 mg/mL) 2% injection syringe Intravenous, PRN, Starting on Sat06/18/23 at 1131, Until Sat06/18/23 at 1147, Anesthesia Intra-op, Routine Given 06/18/2023 11:31 AM EDT 100 mg propofoL (Diprivan) (10 mg/mL) infusion Intravenous, CONTINUOUS PRN, Starting on Sat06/18/23 at 1131, Until Sat06/18/23 at 1147, Anesthesia Intra-op, Routine Rate/Dose Change 06/18/2023 11:35 AM EDT 100 mcg/kg/min 75.12 mL/hr New Bag 06/18/2023 11:31 AM EDT 200 mcg/kg/min 150.24 m L/hr documented in this encounter Care Teams Trailer Rental Clerk Relationship Specialty Start Date End Date Justino Lucia MD PCP - General Family Medicine 10/04/21 documented as of this encounter
--- OUTSIDE RECORDS SUMMARY | 2024-07-07 13:37 | XMS_ITS | Encounter Summary ---
Author Organization [facility] [place] [address] Care Team Providers Care Blown Film Extrusion Operator Name Role Phone Justino Lucia MD Primary Care Provider [phone] Reason for Visit * Reason Comments Medication Refill Encounter Details Date Type Department Care Team (Late st Contact Info) Description 03/29/2023 Refill [place] [phone] Candy Clifford MD [facility] DR [facility] [address] Insulin resistance; Prediabetes; Hyperlipidemia, unspecified hyperlipidemia type; NAFLD (nonalcoholic fatty liver disease) Social History [...] 07/22/2024 9:00 AM EST [place] [phone] Ana Ho MD [facility] [place] [address] 07/22/2024 10:00 AM EST Laboratory Appointment Lab [address] [place] [address] 07/22/2024 11:00 AM EST Office [place] [address] Ana Ho MD [facility] DR GASTROENTEROLOGY [place], [place] [id number] 09/15/2024 10:00 AM EST TH Visit (TeleHealth) [place] [address] Candy Clifford MD [facility] [address] [facility] [address] Scheduled Procedures Name Priority Associated Diagnoses Date/Ti [...] yoga, t'ai chi and qigong. Health Supervisor Dehydrogenation will send hand-outs. Use resistance bands. Health Supervisor Dehydrogenation will request a set be mailed. Movement [...] opportunity to start with protein (cottage cheese, czech yogurt, protein smoothies, chicken or chicken salad [...] for sample meal ideas in the USPS [facility] Keep food log until you are seen by the dieititian. Record everything you eat or drink, include time eaten and any emotional changes that are significant. relaxation/sleep Lifestyle Pankaj Russ Note: Try some meditation/relaxation apps when I wake in the night and can't go back to sleep. Health Supervisor Dehydrogenation will send some to try. Tried apps but don't really like them as I like the quiet when going to sleep. [facility] 04/23 documented as of this encounter Visit Diagnoses Diagnosis Insulin resistance Dysmetabolic Syndrome X Prediabetes Other abnormal glucose Hyperlipidemia, unspecified hyperlipidemia type NAFLD (nonalcoholic fatty liver disease) Other chronic nonalcoholic liver disease documented in this encounter Care Teams Blown Film Extrusion Operator Relationship Specialty Start Date End Date Justino Lucia MD PCP - General Family Medicine 10/04/21 documented as of this encounter
--- OUTSIDE RECORDS SUMMARY | 2024-07-07 13:37 | XMS_ITS | Encounter Summary ---
Author Organization [facility] Address [facility] [place] [address] Care Team Providers Care Stem Sizer Name Role Phone Justino Lucia MD Primary Care Provider [phone] Encounter Details Date Type Department Care Team (Late st Contact Info) Description 04/17/2023 10:30 AM EDT Office Visit [place] [address] Candy Clifford MD [facility] DR [facility] [address] Insulin resistance; Prediabetes; Hyperlipidemia, unspecified hyperlipidemia type; NAFLD (nonalcoholic fatty liver disease); Class 3 severe obesity with serious comorbidity and body mass index (BMI) of 50.0 to 59.9 in adult, unspecified obesity type; Hypertension, unspecified type Social History Tobacco Use [...] Sign Reading Time Taken Comments Blood Pressure 129/87 04/17/2023 10:13 AM EDT Pulse 81 04/17/2023 10:13 AM EDT Temperature - - Respiratory Rate - - Oxygen Saturation 96% 04/17/2023 10: 13 AM EDT Inhaled Oxygen Concentration - - Weight 130.5 kg (287 lb 12.8 oz) 2022 10:13 AM EDT Height 157.5 cm (5' 2) 04/17/2023 10:1 3 AM EDT Body Mass Index 52.64 04/17/2023 10:13 AM EDT documented in this encounter Progress Notes * Candy Clifford MD - 04/17/2023 10:30 AM EDTSummary: 8th visit with MD [facility] [place] Patient Name: Telma Richter Date of : 1950 Age: 72 y.o. Justino Lucia MD Thank you for referring Telma Richter to the [facility]. I saw her for a follow-upvisit today, 04/17/23. Please see changes to care as documented in the assessment and plan. CHIEF COMPLAINT: F/u for treatment of WHO Class 3 / EOSS Stage 2 Obesity defined by initial BMI and comorbidities:HTN, Hyperlipidemia and Vitamin D deficiency. GERD. OA. This is Visit #8 [facility] visit for this 72 y.o. patient. Weight gain due to: Unclear - sits at home; notes gaining weight when she moved here from [place] to take care of her dad about [...] lbs (- 8 lbs, - 48 lbs) [facility] Team: Lacey Martino RD and Pankaj Mcadams, Health Neuro Urologist HPI Daughter had emergency surgery. Doing ok now. Got a job at [employer] in [place], needs the money and sick of sitting at home. Working 20 hours a week, 4 days. Needs work done on the house. PILLARS Stress: has been high, see above Sleep: up at night for BR Movement: starting to get more activity Recall: Didn't eat much at work [employer] last night for supper, burger felipe mohawk fries Drinking a little more water - drinking 2-3 large containers a day of ice water AOM: Currently taking: Ozempic 2 mg AOM [...] Fibrosis Score (Fib 4) was 2.38 at 04/17/2023 11:18 AM Risk of Fibrosis Low Intermediate High [...] []Surgery []Culinary []ACT []Monthly Lifestyle Classes Discussion 04/17/23: Current pillars reviewed. Continues to do unbelievably well with lifestyle modification and Ozempic 2 mg. Increasing daily activity helping as well. Cont f/u. 01/18/2022 4:00 PM [facility] PATHWAY - ADULT Obesity Medicine Activate Goals movement Try gentle movement like chair yoga, t'ai chi and qigong. Health Neuro Urologist will send hand-outs. Use resistance bands. Health Neuro Urologist will request a set be mailed. Movement [...] an opportunity to start with protein (cottage cheese,pashto yogurt, protein smoothies, chicken or chicken salad [...] meal ideas in the USPS [facility] Keep food log until you are seen by the dieititian. Record everything you eat or drink, include time eaten and any emotional changes that are significant. relaxation/sleep Try some meditation/relaxation apps when I wake in the night and can't go back to sleep. Health Neuro Urologist will send some to try. Tried apps but don't really like them as I like the quiet when going to sleep. [facility] 04/23 VITAL SIGNS: Vitals: 04/17/23 1013 BP: 129/87 BP Location ([facility]): Right arm Patient Position: Sitting BP Cuff Sizes: Large Adult (32-43 cm) Pulse: 81 SpO2: 96% Weight: 130.5 kg (287 lb 12.8 oz) Height: 157.5 cm (5' 2) Body mass index is 52.64 kg/m??. PHYSICAL EXAM: Gen: Alert and appropriate, [...] for: GLUCFASTING Lab Results Component Value Date [id number] 01/01/2023 25-OH Vit D Total (ng/mL) [...] Diagnoses and all orders for this visit: Insulin resistance - semaglutide (Ozempic) 1 mg/dose (4 mg/3 mL) Pen Injector; Inject 1 mg subcutaneously once a week. Prediabetes - semaglutide (Ozempic) 1 mg/dose (4 mg/3 mL) Pen Injector; Inject 1 mg subcutaneously once a week. Hyperlipidemia, unspecified hyperlipidemia type NAFLD (nonalcoholic fatty liver disease) Class 3 severe obesity with serious comorbidity and body mass index (BMI) of 50.0 to 59.9 in adult,unspecified obesity type Hypertension, unspecified type No orders of the defined types were placed in this encounter. Return in about 3 months (around 07/18/2023) for Zoom, With me. 1 min chart review 30 min [id number] Visit time 3 min Documentation time I [...] 07/22/2024 9:00 AM EST [place] [phone] Ana Ho MD [facility] [place] [address] 07/22/2024 10:00 AM EST Laboratory Appointment Lab [address] [place] [phone] 07/22/2024 11:00 AM EST Office [place] [address] Ana Ho MD [facility] [place] [address] 09/15/2024 10:00 AM EST TH Visit (TeleHealth) [place] [phone] Candy Clifford MD [facility] [address] [facility] [address] Scheduled Procedures Name Priority Associated Diagnoses Date/Ti me EGD, UPPER GI ENDOSCOPY (WRV U 2.09) Hepatic cirrhosis, unspecified hepatic cirrhosis type, unspecified whether ascites present documented as of this encounter Goals Goal Patient Goal Type Associated Problems Recent Progress Patient-Stated? Author movement Exercise On track(2021 11:16 AM EDT) No Pankaj Mcadams Note: Try gentle movement like chair yoga, t'ai chi and qigong. Health Neuro Urologist will send hand-outs. Use resistance bands. Health Neuro Urologist will request a set be mailed. Movement [...] opportunity to start with protein (cottage cheese, pashto yogurt, protein smoothies, chicken or chicken salad [...] meal ideas in the USPS [facility] Keep food log until you are seen by the dieititian. Record everything you eat or drink, include time eaten and any emotional changes that are significant. relaxation/sleep Lifestyle No Pankaj Mcadams Note: Try some meditation/relaxation apps when I wake in the night and can't go back to sleep. Health Neuro Urologist will send some to try. Tried apps but don't really like them as I like the quiet when going to sleep. [facility] 04/23 documented as of this encounter Visit Diagnoses Diagnosis Insulin resistance Dysmetabolic Syndrome X Prediabetes Other abnormal glucose Hyperlipidemia, unspecified hyperlipidemia type NAFLD (nonalcoholic fatty liver disease) Other chronic nonalcoholic liver disease Class 3 severe obesity with serious comorbidity and body mass index (BMI) of 50.0 to 59.9 in adult, unspecified obesity type Hypertension, unspecified type documented in this encounter Care Teams Stem Sizer Relationship Specialty Start Date End Date Justino Lucia MD PCP - General Family Medicine 10/04/21 documented as of this encounter
--- OUTSIDE RECORDS SUMMARY | 2024-07-07 13:37 | XMS_ITS | Encounter Summary ---
Author Organization [facility] [place] [address] Care Team Providers Care Food Runner Name Role Phone Justino Lucia MD Primary Care Provider [phone] Encounter Details Date Type Department Care Team (Late Contact Info) Description 05/03/2023 Tele[place] [phone] Tanya Mcneill Social History Tobacco Use Types Packs/Day Years [...] encounter Miscellaneous Notes * Telephone Encounter - Tanya Mcneill - 05/03/2023 11:07 AM EDT Telma Olsen Rober [id number] Diagnosis/Indication: Cirrhosis with gastroesophageal varices, follow-up screening due late 2022 Please review patient chart to confirm if previous Endoscopy procedure was performed within system. If yes, take note of Anesthesia type used. If previous procedure found, and with MAC/propofol Anesthesia support was used, schedule this procedure with Anesthesia and skip the Anesthesia portion of questions. If not performed within system, not performed at all, or performed with IVCS, ask Anesthesia questions. SCHEDULING QUESTIONS (ask all patient these questions) Have you ever had a/an Upper Endoscopy before? Yes: Date 06/05/2022 If yes, did you have any problems with the procedure (such as waking up during the procedure, pain or difficulties afterwards, etc.)? No What type of sedation was used: General Anesthesia Do you take any blood thinners or have you been diagnosed with a bleeding disorder that increases your risk of bleeding with procedures? No Do you have a Pacemaker or Defibrillator device? If yes, send pool message to Cardiology with patient information and date or procedure. No Are you a diabetic? If yes, call PCP/managing provider to discuss use of prep and any questions or concerns related to. Yes: Controlled by diet or medication? Medication Do you take any iron supplements or vitamins that contain iron? No Do you have a preference regarding the gender of your provider? No ANESTHESIA QUESTIONS (YES to any question, please book with Anesthesia support) Have you ever been diagnosed with Pulmonary Hypertension and/or Congential Heart Disease? No Have you been diagnosed with A-Fib (atrial fibrillation) that is NOT being well controled with medications? No Have you ever had an allergic or adverse reaction to Fentanyl or Versed? No Have you had a problem with sedation or anesthesia? (Waking up during procedure, extreme confusion after, etc.) No 35+ years ago troubles breaking Do you have a diagnosis of Obstructive Sleep Apnea that requires the use of a c- pap machine? No Do you use an oxygen tank at home? No Do you use a rescue inhaler more than twice per day? (COPD, severe asthma) No Do you experience breathing problems when you lay flat for a period of time? No Do you take prescription narcotic pain medications, including suboxone or methodone? No SCHEDULING CONFIRMATIONS: Please note any and all parts of your conversation with the patient here. We offer all new patients an opportunity to have an appointment with one of our associate care providers to learn more about your upcoming procedure, ask questions and get answers. These appointmentsare offered via telehealth. Would you be interested in scheduling this appointment? (Only ask if NEW referral patient; skip this question if [facility] provider ordered the procedure.) No Is there any other information or concerns you would like to us to share with your care team in relation to your upcoming scheduled procedure? No You must have a responsible republican who will drive you to your procedure, stay on campus for the entire duration of your procedure, and drive you home from your procedure. Who will likely be your student truck driver for the procedure? *Please Verify the height and weight, and adjust if height and/or weight have changed* Estimated body mass index is 52.64 kg/m?? as calculated from the following: Height as of 04/17/23: 157.5 cm (5' 2). Weight as of 04/17/23: 130.5 kg (287 lb 12.8 oz). *Patient must be scheduled for Anesthesia support if BMI is 40 or above* Age:72 y.o. documented in this encounter Plan of Treatment Upcoming Encounters Date Type Department Care Team (Late st Contact Info) Description 07/22/2024 9:00 AM [place] [phone] Ana Ho MD [facility] [place] [address] 07/22/2024 10:00 AM EST Laboratory Appointment Lab [address] [place] [phone] 07/22/2024 11:00 AM EST Office [place] [phone] Ana Ho MD [facility] [place] [address] 09/15/2024 10:00 AM EST TH Visit (TeleHealth) [place] [phone] Candy Clifford MD [facility] DR [facility] [address] Scheduled Procedures Name Priority Associated Diagnoses Date/Ti me EGD, UPPER GI ENDOSCOPY (WRV U 2.09) Hepatic cirrhosis, unspecified hepatic cirrhosis type, unspecified whether ascites present documented as of this encounter Goals Goal Patient Goal Type Associated Problems Recent Progress Patient-Stated? Author movement Exercise On track(2021 11:16 AM EDT) No Pankaj Mcadams Note: Try gentle movement like chair yoga, t'ai chi and qigong. Health Forge Heater will send hand-outs. Use resistance bands. Health Forge Heater will request a set be mailed. Movement Exercise On track(2021 11:16 AM EDT) No Pankaj Mcadams Note: Look around town, [facility], gyms, for a class to participate in, bone builders or gentle stretching. Nutrition Lifestyle No Candy Clifford MD Note: Nutrition Goals updated today: 12/11/22 TF 1. Focus on reaching adequate protein intake - aim for 60-80 grams (handout attached in after visit summary) 2. Consider the 3 eating events per day to be an opportunity to start with protein (cottage cheese, estonian yogurt, protein smoothies, chicken or chicken salad [...] and can't go back to sleep. [facility] Forge Heater will send some to try. Tried apps but don't really like them as I like the quiet when going to sleep. [facility] 04/23 documented as of this encounter Visit Diagnoses Not on filedocumented in this encounter Care Teams Food Runner Relationship Specialty Start Date End Date Justino Lucia MD PCP - General Family Medicine 10/04/21 documented as of this encounter
--- OUTSIDE RECORDS SUMMARY | 2024-07-07 13:37 | XMS_ITS | Encounter Summary ---
Author Organization [facility] [place] [address] Care Team Providers Care Steel Fixer Name Role Phone Justino Lucia MD Primary Care Provider [phone] Encounter Details Date Type Department Care Team (Latest Contact Info) Description 01/19/2023 Travel Social History Tobacco Use Types Packs/Day [...] 07/22/2024 9:00 AM EST [place] [phone] Ana Ho MD [facility] [place] [address] 07/22/2024 10:00 AM EST Laboratory Appointment Lab [address] [place] [phone] 07/22/2024 11:00 AM EST Office [place] [phone] Ana Ho MD [facility] [place] [address] 09/15/2024 10:00 AM EST TH Visit (TeleHealth) Weight and Wellness at [facility] [place] [address] Candy Clifford MD [facility] DR [facility] [place] [address] Scheduled Procedures Name Priority Associated Diagnoses Date/Ti me EGD, UPPER GI ENDOSCOPY (WRV U 2.09) Hepatic cirrhosis, unspecified hepatic cirrhosis type, unspecified whether ascites present documented as of this encounter Goals Goal Patient Goal Type Associated Problems Recent Progress Patient-Stated? Author movement Exercise On track(2021 11:16 AM EDT) No Pankaj Mcadams Note: Try gentle movement like chair yoga, t'ai chi and qigong. Health Desulfurizer Operator will send hand-outs. Use resistance bands. Health Desulfurizer Operator will request a set be mailed. [...] opportunity to start with protein (cottage cheese, chinese yogurt, protein smoothies, chicken or chicken salad [...] and can't go back to sleep. Health Desulfurizer Operator will send some to try. Tried apps but don't really like them as I like the quiet when going to sleep. [facility] 04/23 documented as of this encounter Visit Diagnoses Not on filedocumented in this encounter Care Teams Steel Fixer Relationship Specialty Start Date End Date Justino Lucia MD PCP - General Family Medicine 10/04/21 documented as of this encounter
--- OUTSIDE RECORDS SUMMARY | 2024-07-07 13:37 | XMS_ITS | Encounter Summary ---
Author Organization [facility] Address [facility] [place] [address] Care Team Providers Care Student Liaison Officer Name Role Phone Justino Lucia MD Primary Care Provider [phone] Encounter Details Date Type Department Care Team (Latest Contact Info) Description 01/07/2023 2:00 PM EDT TH Visit (TeleHealth) [place] [address] Kay Tao, PhD [facility] DR [facility]ICH[facility] PERDOMO-[place] [address] Class 3 severe obesity with serious comorbidity [...] Progress Notes * Kay Tao, PhD - 01/07/2023 2:00 PM EDT TAKE ACTION! TO PROMOTE YOUR HEALTH GROUP PROGRESS NOTE Session #4 Time Spent: 120 minutes Session 12/08 Number of participants: 10 Co-Leaders: none SUBJECTIVE: Chief Complaint: Telma Richter is a 72 y.o. female who was referred for group health-behavior intervention to enhance she engagement in obesity management OBJECTIVE: Interventions: ??? Reviewed between session exercises and concepts from previous session (walked through an example of chain analysis and cope ahead) ??? Introduced concept of opening up to difficult thought/feelings using the finger traps and quicksand metaphor ??? Used the Manuela story to introduce the concept of willingness ??? Taught skills to support willingness to experience discomfort: adjusting the willingness dial and self-soothing ASSESSMENT: Pertinent Mental Status Exam: WNL Patient's verbal/interpersonal exchange with other participants: malorie Hollis reported that she has been having a challenging time recently and requested not too share toomuch in group. Telma's action plan for the coming week is: walking 1/wk for 5 min PLAN: Follow-up appointment scheduled for return in 1 Weeks. Assigned Homework: Monitor willingness to experience difficult internal experience, engage in value-based actions, and complete diary card documented in this encounter Plan of Treatment Upcoming Encounters Date Type Department Care Team (Late st Contact Info) Description 07/22/2024 9:00 AM EST [place] [phone] Ana Ho MD [facility] [place] [address] 07/22/2024 10:00 AM EST Laboratory Appointment Lab [address] [place] [phone] 07/22/2024 11:00 AM EST Office [place] [address] Ana Ho MD [facility] [place] [address] 09/15/2024 10:00 AM EST TH Visit (TeleHealth) [place] [phone] Candy Clifford MD [facility] [address] [place] [address] Scheduled Procedures Name Priority Associated Diagnoses Date/Ti me EGD, UPPER GI ENDOSCOPY (WRV U 2.09) Hepatic cirrhosis, unspecified hepatic cirrhosis type, unspecified whether ascites present documented as of this encounter Goals Goal Patient Goal Type Associated Problems Recent Progress Patient-Stated? Author movement Exercise On track(2021 11:16 AM EDT) No Pankaj Mcadams Note: Try gentle movement like chair yoga, t'ai chi and qigong. Health Custodian Supervisor will send hand-outs. Use resistance bands. Health Custodian Supervisor will request a set be mailed. [...] for sample meal ideas in the [employer] [facility] Keep food log until you are seen by the dieititian. Record everything you eat or drink, include time eaten and any emotional changes that are significant. relaxation/sleep Lifestyle No Pankaj Mcadams Note: Try some meditation/relaxation apps when I wake in the night and can't go back to sleep. Health Custodian Supervisor will send some to try. Tried apps but don't really like them as I like the quiet when going to sleep. [facility] 04/23 documented as of this encounter Visit Diagnoses Diagnosis Class 3 severe obesity with serious comorbidity and body mass index (BMI) of 50.0 to 59.9 in adult, unspecified obesity type documented in this encounter Care Teams Student Liaison Officer Relationship Specialty Start Date End Date Justino Lucia MD PCP - General Family Medicine 10/04/21 documented as of this encounter
--- OUTSIDE RECORDS SUMMARY | 2024-07-07 13:38 | XMS_ITS | Encounter Summary ---
Author Organization [facility] Address [facility] [place] [address] Care Team Providers Care Food Services Coordinator Name Role Phone Justino Lucia MD Primary Care Provider [phone] Encounter Details Date Type Department Care Team (Late st Contact Info) Description 12/05/2022 9:00 AM EDT Office Visit [place] [address] Candy Clifford MD [facility] DR [facility] [address] Insulin resistance; Prediabetes; Hyperlipidemia, unspecified hyperlipidemia type; NAFLD (nonalcoholic fatty liver disease); Hypertension, unspecified type; Class 3 severe obesity with serious comorbidity [...] Sign Reading Time Taken Comments Blood Pressure 119/55 12/05/2022 9:05 AM EDT Pulse 82 12/05/2022 9:05 AM EDT Temperature - - Respiratory Rate - - Oxygen Saturation - - Inhaled Oxygen Concentration - - Weight 136.2 kg (300 lb 3.2 oz) 12/05/2022 9:05 AM EDT Height 157.5 cm (5' 2) 12/05/2022 9:05 AM EDT Body Mass Index 54.91 12/05/2022 9:05 AM EDT documented in this encounter Progress Notes * Candy Clifford MD - 12/05/2022 9:00 AM EDTSummary: 6th visit with MD [facility] Patient Name: Telma Richter Date of : 1950 Age: 72 y.o. Justino Lucia MD Thank you for referring Telma Richter to the [facility]. I saw her for a follow-upvisit today, 12/05/22. Please see changes to care as documented in the assessment and plan. CHIEF COMPLAINT: F/u for treatment of WHO Class 3 / EOSS Stage 2 Obesity defined by initial BMI and comorbidities:HTN, Hyperlipidemia and Vitamin D deficiency. GERD. OA. This is Visit #6 [facility] visit for this 72 y.o. [...] (- 5 lbs, - 35 lbs >10%) [facility] Team: Lacey Martino RD and Pankaj Mcadams, Health Community Outreach Director HPI No further issues cardiac mercado, did stress test which was negative. Notes has pain from her epigastric/incisional hernia (wide neck, contains colon) which can cause palpitations. Notes one episode of near syncope, evaluated emergently at that time. Right now having problems with my neck, sharp pains sometime when she turns her neck. PILLARS Stress: its ok, hasn't changed, daughter stays with BF so I basically have the kids every night. Sleep: not doing too well lately, not sure what it is, I just have a hard time. I think it is because I do not do much so I don't burn energy. Movement: starting bone builders next week, PT gave exercises for her neck, going twice a week. Bone builders 4x a week. Recall: B - toast x 2 and butter L - skipped D - mini cadbury cream eggs x 4 Drinking - water usually in the morning, then nothing AOM: Currently taking: Ozempic 1 mg AOM HX: Metformin XR - did [...] VISIT Liver Fibrosis Score (Fib 4) was 1.63 at 12/05/2022 9:49 AM Risk of Fibrosis Low Intermediate High [...] []Surgery []Culinary []ACT []Monthly Lifestyle Classes Discussion 12/05/22: Current pillars reviewed. Doing very well, lost > 10%! Needs to increase protein intake - will reconnect with Lacey. Will send to monthly meetings as well. Continue MD sharp/puneet. 01/18/2022 4:00 PM [facility] PATHWAY - ADULT Obesity Medicine Activate Goals ??? movement Try gentle movement like chair yoga, t'ai chi and qigong. Health Community Outreach Director will send hand-outs. Use resistance bands. Health Community Outreach Director will request a set be mailed. ??? Movement Look around town, senior center, gyms, for a class to participate in, bone builders or gentle stretching. ??? Nutrition Nutrition Goals: 03/16/22 TF Write down meal ideas (statred this today) - look for sample meal ideas in the USPS [facility] Keep food log until you are seen by the dieititian. Record everything you eat or drink, include time eaten and any emotional changes that are significant. ??? relaxation/sleep Try some meditation/relaxation apps when I wake in the night and can't go back to sleep. Health Community Outreach Director will send some to try. Tried apps but don't really like them as I like the quiet when going to sleep. [facility] 04/23 VITAL SIGNS: Vitals: 12/05/22 0905 BP: 119/55 BP Location ([facility]): Left arm Patient Position: Sitting BP Cuff Sizes: Large Adult (32-43 cm) Pulse: 82 Weight: (!) 136.2 kg (300 lb 3.2 oz) Height: 157.5 cm (5' 2) Body mass index is 54.91 kg/m??. PHYSICAL EXAM: Gen: Alert and appropriate, NAD. LABS: Lab Results Component Value Date WBC 6.3 05/14/2022 RBC 4.78 05/14/2022 HGB 14.5 05/14/2022 HCT 43.0 05/14/2022 MCV 90.0 05/14/2022 MCH 30.3 05/14/2022 MCHC 33.7 05/14/2022 PLATELET 247 05/14/2022 RDWCV 13.2 05/14/2022 Lab Results Component Value Date NA 140 05/14/2022 K 4.0 05/14/2022 CL 104 05/14/2022 CO2 27 05/14/2022 BUN 13 05/14/2022 CREATININE 0.81 05/14/2022 GLUCOSE 107 05/14/2022 CALCIUM 9.4 05/14/2022 ESTGFR 78 05/14/2022 Lab Results Component Value Date ALT 18 05/14/2022 AST 24 05/14/2022 ALKPHOS 60 05/14/2022 BILITOT 1.0 05/14/2022 BILIDIR 0.3 02/07/2016 ALBUMIN 3.9 05/14/2022 PROT 6.7 05/14/2022 Lab Results Component Value Date CHLPL 110 (L) 01/25/2022 HDL 37 (L) 01/25/2022 TRIG 68 01/25/2022 LDLCHOL 59 01/25/2022 Lab Results Component Value Date HA1C 5.5 01/25/2022 Lab Results Component Value Date TSH 2.02 01/25/2022 Lab Results Component Value Date LABINSU 28 01/25/2022 No results found for: GLUCFASTING Lab Results Component Value Date [id number] 1,091 (H) 01/25/2022 25-OH Vit D Total (no units) Date Value Status 01/25/2022 40.1 Final No results found for: URICACID ASSESSMENT [...] Vitamin D deficiency. GERD. OA. Referrals pending: Dietitian AOM: Ozempic 1 mg Diagnoses and all orders for this visit: Insulin resistance - semaglutide 2 mg/dose (8 mg/3 mL) Pen Injector; Inject 2 mg subcutaneously once a week. Prediabetes - semaglutide 2 mg/dose (8 mg/3 mL) Pen Injector; Inject 2 mg subcutaneously once a week. Hyperlipidemia, unspecified hyperlipidemia type - semaglutide 2 mg/dose (8 mg/3 mL) Pen Injector; Inject 2 mg subcutaneously once a week. NAFLD (nonalcoholic fatty liver disease) - semaglutide 2 mg/dose (8 mg/3 mL) Pen Injector; Inject 2 mg subcutaneously once a week. Hypertension, unspecified type Class 3 severe obesity with serious comorbidity and body mass index (BMI) of 50.0 to 59.9 in adult,unspecified obesity type No orders of the defined types were placed in this encounter. Return in about 8 weeks (around 01/30/2023) for In person or Zoom, With RD. miah 1 min chart review 30 min [id number] Visit time 5 min Documentation time I [...] 07/22/2024 9:00 AM EST [place] [address] Ana Ho MD [facility] GASTROENTEROLOGY [place] [id number] 07/22/2024 10:00 AM EST Laboratory Appointment Lab [address] [place] [phone] 07/22/2024 11:00 AM EST Office [place] [address] Ana Ho MD [facility] [place] [address] 09/15/2024 10:00 AM EST TH Visit (TeleHealth) [place] [phone] Candy Clifford MD [facility] DR [place] [address] Scheduled Procedures Name Priority Associated Diagnoses Date/Ti [...] yoga, t'ai chi and qigong. Health Community Outreach Director will send hand-outs. Use resistance bands. Health Community Outreach Director will request a set be mailed. Movement [...] opportunity to start with protein (cottage cheese, guatemalan yogurt, protein smoothies, chicken or chicken salad [...] for sample meal ideas in the [employer]PS [facility] Keep food log until you are seen by the dieititian. Record everything you eat or drink, include time eaten and any emotional changes that are significant. relaxation/sleep Lifestyle No Pankaj Mcadams Note: Try some meditation/relaxation apps when I wake in the night and can't go back to sleep. Health Community Outreach Director will send some to try. Tried apps but don't really like them as I like the quiet when going to sleep. [facility] 04/23 documented as of this encounter Visit Diagnoses Diagnosis Insulin resistance Dysmetabolic Syndrome X Prediabetes Other abnormal glucose Hyperlipidemia, unspecified hyperlipidemia type NAFLD (nonalcoholic fatty liver disease) Other chronic nonalcoholic liver disease Hypertension, unspecified type Class 3 severe obesity with serious comorbidity and body mass index (BMI) of 50.0 to 59.9 in adult, unspecified obesity type documented in this encounter Care Teams Food Services Coordinator Relationship Specialty Start Date End Date Justino Lucia MD PCP - General Family Medicine 10/04/21 documented as of this encounter
--- OUTSIDE RECORDS SUMMARY | 2024-07-07 13:38 | XMS_ITS | Encounter Summary ---
Author Organization [facility] Address [facility] [place] [address] Care Team Providers Care Grade Recorder Name Role Phone Justino Lucia MD Primary Care Provider [phone] Encounter Details Date Type Department Care Team (Latest Contact Info) Description 12/17/2022 2:00 PM EDT TH Visit (TeleHealth) Weight [place] [address] Kay Tao, PhD [facility] [address] [address] Class 3 severe obesity with serious comorbidity [...] Progress Notes * Kay Tao, PhD - 12/17/2022 2:00 PM EDT TAKE ACTION! TO PROMOTE YOUR HEALTH GROUP PROGRESS NOTE Session #1 Time Spent: 120 minutes Session 09/09 Number of participants: 11 Co-Leaders: none SUBJECTIVE: Chief Complaint: Telma Richter is a 72 y.o. female who was referred for group health-behavior intervention to enhance she engagement in obesity management OBJECTIVE: Interventions: ??? Reviewed group rules and concepts from previous session ? ? Reviewed pattern smashing & Habits reading homework ??? Introduced the concept of increasing intentional awareness via mindfulness practice and self-monitoring ??? Introduced SMART goals ??? Introduced the concept of values and helped patients identify personal values and values drivenactions ASSESSMENT: Pertinent Mental Status Exam: WNL Patient's verbal/interpersonal exchange with other participants: appropriate Telma reported that she would like to develop insight into why she sometimes feels ambivalent abouther health. Discussed the importance of connecting to our own health values vs. The reasons why others want us to work on our health. PLAN: Follow-up appointment scheduled for return in 1 Weeks. Assigned Homework: Complete values worksheet, activity goal, and complete diary card documented in this encounter Plan of Treatment Upcoming Encounters Date Type Department Care Team (Late st Contact Info) Description 07/22/2024 9:00 AM EST Appointment [place] [phone] Ana Ho MD [facility] [place] [address] 07/22/2024 10:00 AM EST Laboratory Appointment Lab [address] [place] [phone] 07/22/2024 11:00 AM EST Office Visit [place] [address] Ana Ho MD [facility] [place] [address] 09/15/2024 10:00 AM EST TH Visit (TeleHealth) Weight [place] [address] Candy Clifford MD [facility] [place] [address] Scheduled Procedures Name Priority Associated Diagnoses Date/Ti me EGD, UPPER GI ENDOSCOPY (WRV U 2.09) Hepatic cirrhosis, unspecified hepatic cirrhosis type, unspecified whether ascites present documented as of this encounter Goals Goal Patient Goal Type Associated Problems Recent Progress Patient-Stated? Author movement Exercise On track(2021 11:16 AM EDT) No Pankaj Mcadams Note: Try gentle movement like chair yoga, t'ai chi and qigong. Health Counterintelligence Specialist will send hand-outs. Use resistance bands. Health Counterintelligence Specialist will request a set be mailed. [...] [facility] Keep food log until you are seen by the dieititian. Record everything you eat or drink, include time eaten and any emotional changes that are significant. relaxation/sleep Lifestyle No Pankaj Mcadams Note: Try some meditation/relaxation apps when I wake in the night and can't go back to sleep. Health Counterintelligence Specialist will send some to try. Tried apps but don't really like them as I like the quiet when going to sleep. [facility] 04/23 documented as of this encounter Visit Diagnoses Diagnosis Class 3 severe obesity with serious comorbidity and body mass index (BMI) of 50.0 to 59.9 in adult, unspecified obesity type documented in this encounter Care Teams Grade Recorder Relationship Specialty Start Date End Date Justino Lucia MD PCP - General Family Medicine 10/04/21 documented as of this encounter
--- OUTSIDE RECORDS SUMMARY | 2024-07-07 13:38 | XMS_ITS | Encounter Summary ---
Author Organization [facility] [place] [address] Care Team Providers Care Preload Supervisor Name Role Phone Justino Lucia MD Primary Care Provider [phone] Encounter Details Date Type Department Care Team (Late st Contact Info) Description 06/28/2022 12:00 PM EDT Notes Only Weight and Wellness at [facility] [address] [place] [phone] Social History Tobacco Use Types Packs/Day Years [...] 07/22/2024 9:00 AM [place] [phone] Ana Ho MD [facility] [place] [address] 07/22/2024 10:00 AM EST Laboratory Appointment Lab [address] [place] [phone] 07/22/2024 11:00 AM EST Office [place] [address] Ana Ho MD [facility] GASTROENTEROLOGY [place], [place] [id number] 09/15/2024 10:00 AM EST TH Visit (TeleHealth) [place] [address] Candy Clifford MD [facility] [place] [address] Scheduled Procedures Name Priority Associated Diagnoses Date/Ti me EGD, UPPER GI ENDOSCOPY (WRV U 2.09) Hepatic cirrhosis, unspecified hepatic cirrhosis type, unspecified whether ascites present documented as of this encounter Goals Goal Patient Goal Type Associated Problems Recent Progress Patient-Stated? Author movement Exercise On track(2021 11:16 AM EDT) No Pankaj Mcadams Note: Try gentle movement like chair yoga, t'ai chi and qigong. Health Welder Railcar Mechanic will send hand-outs. Use resistance bands. Health Welder Railcar Mechanic will request a set be mailed. Movement [...] opportunity to start with protein (cottage cheese, american yogurt, protein smoothies, chicken or chicken salad [...] and can't go back to sleep. Health Welder Railcar Mechanic will send some to try. Tried apps but don't really like them as I like the quiet when going to sleep. [facility] 04/23 documented as of this encounter Visit Diagnoses Not on filedocumented in this encounter Care Teams Preload Supervisor Relationship Specialty Start Date End Date Justino Lucia MD PCP - General Family Medicine 10/04/21 documented as of this encounter
--- OUTSIDE RECORDS SUMMARY | 2024-07-07 13:38 | XMS_ITS | Encounter Summary ---
Author Organization [facility] [place] [address] Care Team Providers Care Environmental Field Professional Name Role Phone Justino Lucia MD Primary Care Provider [phone] Encounter Details Date Type Department Care Team (Latest Contact Info) Description 08/02/2022 Travel Social History Tobacco Use Types Packs/Day [...] 07/22/2024 9:00 AM [place] [phone] Ana Ho MD [facility] [place] [address] 07/22/2024 10:00 AM EST Laboratory Appointment Lab [address] [place] [phone] 07/22/2024 11:00 AM EST Office [place] [phone] Ana Ho MD [facility] [place] [address] 09/15/2024 10:00 AM EST TH Visit (TeleHealth) Weight and Wellness at [facility] [place] [place] [address] Candy Clifford MD [facility] [address] [facility] [address] Scheduled Procedures Name Priority Associated Diagnoses Date/Ti me EGD, UPPER GI ENDOSCOPY (WRV U 2.09) Hepatic cirrhosis, unspecified hepatic cirrhosis type, unspecified whether ascites present documented as of this encounter Goals Goal Patient Goal Type Associated Problems Recent Progress Patient-Stated? Author movement Exercise On track(2021 11:16 AM EDT) No Pankja Mcadams Note: Try gentle movement like chair yoga, t'ai chi and qigong. Health Saw Cleaner will send hand-outs. Use resistance bands. Health Saw Cleaner will request a set be mailed. Movement [...] opportunity to start with protein (cottage cheese, kosovan yogurt, protein smoothies, chicken or chicken salad [...] for sample meal ideas in the [employer]PS [facility] Keep food log until you are seen by the dieititian. Record everything you eat or drink, include time eaten and any emotional changes that are significant. relaxation/sleep Lifestyle Pankaj Russ Note: Try some meditation/relaxation apps when I wake in the night and can't go back to sleep. Health Saw Cleaner will send some to try. Tried apps but don't really like them as I like the quiet when going to sleep. [facility] 04/23 documented as of this encounter Visit Diagnoses Not on filedocumented in this encounter Care Teams Environmental Field Professional Relationship Specialty Start Date End Date Jusitno Lucia MD PCP - General Family Medicine 10/04/21 documented as of this encounter
--- OUTSIDE RECORDS SUMMARY | 2024-07-07 13:38 | XMS_ITS | Encounter Summary ---
Author Organization [facility] [place] [address] Care Team Providers Care Supervisor Cook Room Name Role Phone Justino Lucia MD Primary Care Provider [phone] Encounter Details Date Type Department Care Team (Late st Contact Info) Description 08/02/2022 12:00 PM EST Notes Only Weight and Wellness at [facility] [address] [place] [address] Arrived Social History Tobacco Use Types Packs/Day Years [...] 07/22/2024 9:00 AM EST Appointment [place] [phone] Ana Ho MD [facility] [place] [address] 07/22/2024 10:00 AM EST Laboratory Appointment Lab [address] [place] [phone] 07/22/2024 11:00 AM EST Office [place] [address] Ana Ho MD [facility] GASTROENTEROLOGY [place], [place] [id number] 09/15/2024 10:00 AM EST TH Visit (TeleHealth) [place] [address] Candy Clifford MD [facility] [address] [facility] [address] Scheduled Procedures Name Priority Associated [...] chair yoga, t'ai chi and qigong. Health Ampoule Washing Machine Operator will send hand-outs. Use resistance bands. Health Ampoule Washing Machine Operator will request a set be [...] opportunity to start with protein (cottage cheese, latvian yogurt, protein smoothies, chicken or chicken salad [...] and can't go back to sleep. Health Ampoule Washing Machine Operator will send some to try. Tried apps but don't really like them as I like the quiet when going to sleep. [facility] 04/23 documented as of this encounter Visit Diagnoses Not on filedocumented in this encounter Care Teams Supervisor Cook Room Relationship Specialty Start Date End Date Justino Lucia MD PCP - General Family Medicine 10/04/21 documented as of this encounter
--- OUTSIDE RECORDS SUMMARY | 2024-07-07 13:38 | XMS_ITS | Encounter Summary ---
[place] [address] Care Team Providers Care Director Of Marketing Analytics Name Role Phone Justino Lucia MD Primary Care Provider Reason for Referral * Diagnostic Test (Routine) - Closed Specialty Diagnoses / Procedures Referred By Contac t Referred To Contact Radiology Diagnoses Hepatic cirrhosis, unspecified hepatic cirrhosis type, unspecified whether ascites present Procedures CT Abdomen w Contrast Glenn Cardoso, PA [address] [place] [address] [facility] [place] [address] Referral ID Status Reason Start Date Expiration Date V isits Requested Visits Authorized [id number] Closed Specialty Service Requested 01/01/2023 07/04/2024 1 1 Reason for Visit * Consultation (Routine) - Closed Specialty Diagnoses / Procedures Referred By Contac t Referred To Contact Gastroenterology Diagnoses Hepatic cirrhosis, unspecified hepatic cirrhosis type, unspecified whether ascites present Gastric varices Justino Lucia MD [address] [place] [address] [place] [address] [facility] [address] Referral ID Status Reason Start Date Expiration Date V isits Requested Visits Authorized [id number] Closed Consult, Test & Treat PCP Updated and/or Approved 11/22/2022 11/22/2023 12 12 Encounter Details Date Type Department Care Team (Late st Contact Info) Description 01/01/2023 10:00 AM EDT Office Visit Gastroenterology at [facility] [place] [address] Glenn Cardoso PA [address] [place] [address] [place] [address] Hepatic cirrhosis, unspecified hepatic cirrhosis type, unspecified whether ascites present (Primary Dx); Portal hypertension Social History Tobacco Use Types Packs/Day Years [...] Sign Reading Time Taken Comments Blood Pressure 132/67 01/01/2023 10:22 AM EDT Pulse 77 01/01/2023 10:22 AM EDT Temperature - - Respiratory Rate - - Oxygen Saturation - - Inhaled Oxygen Concentration - - Weight 136.4 kg (300 lb 9.6 oz) 023 10:22 AM EDT Height 157.5 cm (5' 2) 01/01/2023 10:2 2 AM EDT Body Mass Index 54.98 01/01/2023 10:22 AM EDT documented in this encounter Progress Notes * Glenn Cardoso PA - 01/01/2023 10:00 AM EDT Gastroenterology and Hepatology Follow Up Note Patient: Telma Richter Sex: female : 1950 Provider: Glenn Cardoso PA-C PCP: Justino Lucia MD LIVER HISTORY Cirrhosis, 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 Ramon @ [facility], longstanding follow-up, AMY to [facility] December 2021 -Liver biopsy 1990 in [place] (HCV dx) -HCV treated with Harvnoi x12 weeks in 2014 (RF of remote cocaine use, +FHx) -ETOH: would binge drink on weekends, sober several years since 2006 -Metabolic risks: obesity, HTN, HLD, prediabetes -No over GI bleeding history -Gastric varices in fundus on EGD 05/2018, no EV -Last EGD 06/05/22 with small GOV2, no PHG, benign appearing gastric polyps [place] 06/05/22 with small TA -?HE, minimal elevation in ammonia and mild memory issues, improved May 2022, no treatment -FHx of hemochromatosis (HFE negative) -Following with [facility] since spring 2021 with good success in weight loss on GLP-1 -HCC screening: US 01/01/23 with no liver lesions, trace perihepatic ascites, normal spleen -Last MELD-Na = 7 on 01/01/23 -Last AFP = 3.2 on 12/14/21 PROBLEM LIST Patient Active Problem List Diagnosis Code ??? 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 Frequent PVCs I49.3 ??? Edema of lower extremity R60.0 ??? Epistaxis R04.0 ??? Anxiety F41.9 ??? Depression F32.A ??? Anemia D64.9 ??? Osteopenia M85.80 ??? PSVT (paroxysmal supraventricular tachycardia) I47.1 ??? Cirrhosis K74.60 ??? History of hepatitis C Z86.19 ??? Asthma J45.909 ??? Hypertension I10 ??? Class 3 severe obesity with serious comorbidity and body mass index (BMI) of 50.0 to 59.9 in adult E66.01, Z68.43 ??? History of alcohol abuse F10.11 ??? Hyperlipidemia E78.5 ??? History of colon polyps Z86.010 ??? Osteoarthritis of hip M16.9 ??? History of shoulder replacement Z96.619 ??? Portal hypertension K76.6 ??? Prediabetes R73.03 ??? Insulin resistance E88.81 ??? NAFLD (nonalcoholic fatty liver disease) K76.0 Interval History: Ms. Telma Richter is 72 y.o. with a history of cirrhosis and portal hypertension suspected due to combination of hepatitis C (treated and cured) as well as CASAREZ/ROBER. We last met in May of this year. She follows up today with labs and ultrasound prior to her appointment. She has been on semaglutide about 3 months now and has lost 21 pounds since last visit. She feels well and is hoping to lose even more weight. Her diet has not changed much, and her appetite has beencurbed on the medication. She states that every once in a while she will have loose bowel movements, but sometimes normal and this is not very concerning to her. MEDICATIONS: Current Outpatient Medications Medication Sig Dispense Refill ??? semaglutide 2 mg/dose (8 mg/3 mL) Pen Injector Inject 2 mg subcutaneously once a week. 3 mL 3 ??? metoprolol succinate XL (Toprol-XL) 25 mg Tablet Sustained Release 24 hr Take 25 mg by mouth 2 times daily. ??? omeprazole (PriLOSEC) 40 mg Capsule, Delayed Release(E.C.) Take 40 mg by mouth daily. ??? gabapentin (Neurontin) 300 mg Capsule Take 300 mg by mouth 3 times daily. ??? spironolactone (Aldactone) 25 mg Tablet Take 25 mg by mouth daily. ??? MYRBETRIQ 25 mg Tablet Sustained Release 24 hr ??? Garlic 1,000 mg Capsule Take 1 capsule by mouth daily. ??? meTOPROLOL tartrate (LOPRESSOR) 25 mg Tablet Take 25 mg by mouth 2 times daily. ??? furosemide (LASIX) 20 mg Tablet Take 20 mg by mouth daily. ??? atorvastatin (LIPITOR) 20 mg Tablet Take 1 tablet by mouth daily. 30 tablet 3 ??? cholecalciferol, Vitamin D3, 50 mcg (2,000 unit) Capsule Take 1 capsule by mouth Daily. ??? albuteroL 90 mcg/actuation HFA Aerosol Inhaler Inhale 2 puffs into the lungs every 4 hours as needed for Wheezing. Use with spacer No current facility-administered medications for this visit. Facility-Administered Medications Ordered in Other Visits Medication Dose Route Frequency Provider Last Rate Last Admin ??? midazolam (PF) (VERSED) 1 mg/mL multi-dose injection Once PRN Flavio Daniels MD 1 mg at 02/07/16 1543 ??? fentaNYL 50 mcg/mL multi-dose injection Once PRN Flavio Daniels MD 50 mcg at 02/07/16 1543 ??? heparin (porcine) injection Once PRN Flavio Daniels MD 8,000 Units at 02/07/16 1551 ALLERGIES/ADR No Known Allergies PHYSICAL EXAMINATION: Vitals: 01/01/23 1022 BP: 132/67 BP Location (NBP): Left arm Patient Position: Sitting BP Cuff Sizes: Large Adult (32-43 cm) Pulse: 77 Weight: (!) 136.4 kg (300 lb 9.6 oz) Height: 157.5 cm (5' 2) Body mass index is 54.98 kg/m??. Constitutional: Well appearing, appropriate, no acute distress, walking with cane Skin: + palmar erythema, no cyanosis, no jaundice, no spider angiomata Head: Normocephalic, sclerae anicteric Abdomen: Increased central adiposity, ventral hernia without incarceration, nontender, nondistended Neurologic: Alert and oriented x 3, no asterixis or tremor Extremities: Moderate LE edema, no clubbing, no muscle wasting, no joint swelling PERTINENT LABS AND IMAGING: Recent Results (from the past 24 hour(s)) Vitamin D, 25-Hydroxy Result Value Ref Range 25-OH Vit D Total 43 21 - 100 ng/mL 25-OH Vit D Interp Sufficient Vitamin B12 Result Value Ref Range Vitamin B-12 553 232 - 1,245 pg/mL TSH Result Value Ref Range TSH 1.28 0.27 - 4.20 mcIU/mL Lipid Panel (Reflex Direct LDL) Result Value Ref Range Chol, Total 118 mg/dL Triglycerides 75 mg/dL HDL 45 mg/dL LDL Cholesterol 58 mg/dL Chol/HDL Ratio 2.6 ratio Lipid Interpretation See Note Insulin, total Result Value Ref Range Insulin Lvl 25.2 (H) 2.6 - 24.9 mcunit/mL Hemoglobin A1c Result Value Ref Range Hemoglobin A1C 4.8 4.3 - 5.6 % Est Avg Gluc See note mg/dL Ferritin Result Value Ref Range Ferritin 56 30 - 400 ng/mL Prothrombin Time Result Value Ref Range PT 13.1 (H) 9.4 - 12.5 sec INR 1.1 Comprehensive metabolic panel (non-fasting) Result Value Ref Range Glucose Lvl 90 65 - 199 mg/dL BUN 12 8 - 18 mg/dL Creatinine 0.77 0.70 - 1.20 mg/dL Sodium 142 135 - 145 mmol/L Potassium 3.9 3.5 - 5.0 mmol/L Chloride 105 98 - 107 mmol/L CO2 29 22 - 31 mmol/L Anion Gap 8 5 - 15 mmol/L Calcium 9.2 8.5 - 10.5 mg/dL Total Protein 6.8 6.1 - 8.0 g/dL Albumin 3.8 3.2 - 5.2 g/dL AST 28 0 - 30 unit/L ALT 16 0 - 30 unit/L Alk Phos 84 35 - 105 unit/L Total Bilirubin 1.0 0.2 - 1.3 mg/dL Estimated GFR 82 >=60 mL/min/1.73 m?? Hemogram Result Value Ref Range WBC 4.8 4.0 - 9.5 x10(3)/mcL RBC 4.81 4.00 - 5.21 x10(6)/mcL Hemoglobin 14.7 11.7 - 15.5 g/dL Hematocrit 43.0 35.7 - 45.8 % MCV 89.4 82.6 - 94.4 fL MCH 30.6 27.1 - 32.0 pg MCHC 34.2 31.7 - 35.0 g/dL Platelets 209 145 - 357 x10(3)/mcL RDWSD 44.0 37.0 - 46.0 fL RDWCV 13.4 11.5 - 14.1 % MPV 10.0 7.6 - 12.9 fL nRBC % Auto 0.0 % nRBC Abs Auto 0.000 0.000 - 0.000 x10(3)/mcL Differential, Automated Result Value Ref Range Neutrophils % 59.0 % Neutr Abs (ANC) 2.81 1.70 - 6.10 x10(3)/mcL Lymphocytes % 29.1 % Lymphocytes Abs 1.4 0.9 - 3.2 x10(3)/mcL Monocytes % 9.4 % Monocyte Abs 0.4 0.3 - 0.9 x10(3)/mcL Eosinophils % 1.9 % Eosinophils Abs 0.1 0.0 - 0.4 x10(3)/mcL Basophils % 0.4 % Basophils Abs 0.0 0.0 - 0.1 x10(3)/mcL Immature Gran % 0.20 % Silvia Gran Abs 0.01 0.00 - 0.04 x10(3)/mcL MELD-Na score: 7 at 01/01/2023 8:48 AM MELD score: 7 at 01/01/2023 8:48 AM Calculated from: Serum Creatinine: 0.77 mg/dL (Using min of 1 mg/dL) at 01/01/2023 8:48 AM Serum Sodium: 142 mmol/L (Using max of 137 mmol/L) at 01/01/2023 8:48 AM Total Bilirubin: 1.0 mg/dL at 01/01/2023 8:48 AM INR(ratio): 1.1 at 01/01/2023 8:48 AM Age: 72 years Endoscopy: EGD 06/05/22 (Dr. Rojas): Impression: ?- Type 2 gastroesophageal varices ?(GOV2, esophageal varices which ?extend along the fundus), without ?bleeding. ?- Three benign appearing gastric ?polyps overlying area of gastric ?varices, not biopsied per ASGE ?guideline and also due to proximity ?to varices. No follow-up needed ?specific to this incidental finding. Recommendation: ?- Perform a colonoscopy today. Colonoscopy 06/05/22: Impression: ?- One 3 mm polyp in the transverse ?colon, removed with a cold snare. ?Resected and retrieved. ?- The examined portion of the ileum ?was normal. Recommendation: ?- Await pathology results. ?- Discharge patient to home (with ?escort). ? - Return to referring physician as ?previously scheduled. ?- Per Multi-Society Task Force ?of Colorectal Cancer (MSTF) ?recommendations, no further ?colonoscopies as her next intended ?interval would be at age >75 ?considering her medical ?comorbidities. Pathology: From colonoscopy 06/05/22: A - Transverse colon ?? diminutive polyp, resection: - ??Fragments of tubular adenoma. Imaging: Ultrasound today: LIVER: ------ Right Lobe Length: 14.7 cm Echogenicity/Echotexture: Coarse parenchyma with capsular nodularity Portal Veins: Main PV hepatopetal where interrogated ?? Comment: No focal lesion seen. GALLBLADDER: Comment: Surgically absent ?? BILIARY TRACT: Intrahepatic Ducts: Normal Extrahepatic Ducts: Normal where seen post cholecystectomy, similar to comparison CT Common Duct Size: 6.8 mm ?? ------- SPLEEN: ------- Size (cm) L: 10.1 AP: 3.8 TV: 9.5 ?? Vol (ml): 190.9 ?? Comment: Normal size and appearance. ?? ---- IVC: ---- Normal in caliber where visualized. ?? FLUID COLLECTIONS: 4 quadrant evaluation for ascites performed. Trace perihepatic ascites noted. ?? IMPRESSION ?? 1. Coarse liver parenchyma with capsular nodularity, consistent with known cirrhosis. No sonographically evident hepatic mass. 2. Trace perihepatic ascites. No splenomegaly. 3. Status post cholecystectomy. No biliary ductal dilatation. ASSESSMENT & PLAN: Telma Richter is a 72 y.o. 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 She has no known history of decompensation though she does have evidence of portal hypertension with gastric varices and trace ascites. She also has lower extremity edema. At the moment, she is reasonably compensated, with MELD score of 7. There were previous concerns of hepatic encephalopathy however not on today's visit. She continues having excellent success with weight loss on GLP-1 agonist. Plan: -Continue follow-up with [facility] on semaglutide. No med adjustments necessary. -Continue maintaining alcohol sobriety indefinitely. -Repeat EGD at the end of the year to follow-up gastroesophageal varices. Consider initiating nonselective beta rafa if these persist and ascites resolves by next visit. -Follow-up in 6 months with ultrasound and labs prior with [facility], with CT scan prior (due to body habitus) Time spent reviewing records prior to this encounter: 5 minutes Time spent during encounter with patient including counselin minutes Time spent documenting encounter on date of service: 5 minutes Approximate total time devoted to this single encounter on date of service: 30 minutes Glenn Cardoso PA-C Section of Gastroenterology [place] [address] Cc: Justino Lucia MD @[email or web address]@ documented in this encounter Plan of Treatment Upcoming Encounters Date Type Department Care Team (Late st Contact Info) Description 07/22/2024 9:00 AM EST [place] [address] Ana Ho MD [facility] [place] [address] 07/22/2024 10:00 AM EST Laboratory Appointment Lab [address] [place] [address] 07/22/2024 11:00 AM EST Office [place] [address] Ana Ho MD [facility] [place] [address] 09/15/2024 10:00 AM EST TH Visit (TeleHealth) Weight and Wellness at [place] [phone] Candy Clifford MD [facility] DR [address] [place] [address] Scheduled Procedures Name Priority Associated Diagnoses Date/Ti me EGD, UPPER GI ENDOSCOPY (WRV U 2.09) Hepatic cirrhosis, unspecified hepatic cirrhosis type, unspecified whether ascites present documented as of this encounter Goals Goal Patient Goal Type Associated Problems Recent Progress Patient-Stated? Author movement Exercise On track(2021 11:16 AM EDT) No Pankaj Mcadams Note: Try gentle movement like chair yoga, t'ai chi and qigong. Health Computer Numerical Control Operator will send hand-outs. Use resistance bands. Health Computer Numerical Control Operator will request a set be mailed. [...] for sample meal ideas [facility] Keep food log until you are seen by the dieititian. Record everything you eat or drink, include time eaten and any emotional changes that are significant. relaxation/sleep Lifestyle No Pankaj Mcadams Note: Try some meditation/relaxation apps when I wake in the night and can't go back to sleep. Health Computer Numerical Control Operator will send some to try. Tried apps but don't really like them as I like the quiet when going to sleep. [facility] 04/23 documented as of this encounter Results * (ABNORMAL) CT Abdomen [...] who have questions please contact the health direct support professional caregiver that requested your imaging first. ? Narrative 07/04/2023 3:08 PM EDT EXAMINATION: CT [...] Finding Rea Hickey MD IMG CT ORDERABLES * AFP tumor marker (07/04/2023 7:39 AM EDT) [facility] Alpha Fetoprotein 2.9 <=8.3 ng/mL [facility] Comment: This result was generated using a Anthony Viridiana immunoassay. ??Results obtained from other methods or manufacturers cannot be used interchangeably with this method. Blood 07/04/2023 7:39 AM EDT 07/04/2023 7:43 AM EDT Narrative Resulting Agency Comment Spec In Lab Rea Hickey MD CHEMISTRY ORDERABLES [facility] [place] [address] * (ABNORMAL) Prothrombin Time (07/04/2023 7:39 AM EDT) Pathologist [facility] Prothrombin Time 13.2(H) 9.4 - 12.5 sec [facility] International Normalization Ratio 1.2 [facility] Comment: An INR <2.0 [...] Lab Rea Hickey MD HEMATOLOGY ORDERABLE S [facility] [place] [address] * Comprehensive metabolic panel (non-fasting) (07/04/2023 7:39 AM EDT) Glucose 92 65 - 199 mg/dL [facility] Comment:Diabetes: >=200 mg/d L plus symptoms Blood Urea Nitrogen 10 8 - 18 mg/dL [facility] Creatinine 0.77 0.70 - 1.20 mg/dL [facility] Sodium 142 135 - 145 mmol/L [facility] Potassium 3.8 3.5 - 5.0 mmol/L [facility] Comment: Please note: ??Patients with WBC >100,000 may have falsely elevated Potassium levels. ??For accurate Potassium quantification in these patients send serum separator tube (gold top) for subsequent determinations. ??Contact the Clinical Chemistry Laboratory if there are any questions. Chloride 103 98 - 107 mmol/L [facility] Carbon Dioxide 30 22 - 31 mmol/L [facility] Anion Gap 9 5 - 15 mmol/L [facility] Calcium 8.8 8.5 - 10.5 mg/dL [facility] Protein, Total 6.5 6.1 - 8.0 g/dL [facility] Albumin 3.4 3.2 - 5.2 g/dL [facility] Aspartate Aminotransferase 25 0 - 30 unit/L [facility] Alanine Aminotransferase 15 0 - 30 unit/L [facility] Alkaline Phosphatase 84 35 - 105 unit/L [facility] Bilirubin, Total 1.0 0.2 - 1.3 mg/dL [facility] Est Glomerular Filtration Rate 82 >=60 mL/min/1. 73 m?? [facility] Comment: This patient's estimated [...] Hickey MD CHEMISTRY ORDERABLES Performing Organization Address City/State/[facility] Co de Phone Number [facility] [place] [address] documented in this encounter Visit Diagnoses Diagnosis Hepatic cirrhosis, unspecified hepatic cirrhosis type, unspecified whether ascites present- Primary Portal hypertension Hepatic cirrhosis, unspecified hepatic cirrhosis type, unspecified whether ascites present documented in this encounter Care Teams Director Of Marketing Analytics Relationship Specialty Start Date End Date Justino Lucia MD PCP - General Family Medicine 10/04/21 documented as of this encounter
--- OUTSIDE RECORDS SUMMARY | 2024-07-07 13:38 | XMS_ITS | Encounter Summary ---
Author Organization [facility] [place] [address] Care Team Providers Care Fisher Seal Name Role Phone Justino Lucia MD Primary Care Provider [phone] Encounter Details Date Type Department Care Team (Late st Contact Info) Description 10/29/2022 5:30 PM EST Notes Only [place] [phone] Social History Tobacco Use Types Packs/Day Years [...] 07/22/2024 9:00 AM EST [place] [phone] Ana Ho MD [facility] [place] [address] 07/22/2024 10:00 AM EST Laboratory Appointment Lab [address] [place] [phone] 07/22/2024 11:00 AM EST Office [place] [address] Ana Ho MD [facility] [place] [address] 09/15/2024 10:00 AM EST TH Visit (TeleHealth) Weight and Wellness at [facility] [place] [address] Candy Clifford MD [facility] DR [address] [place] [address] Scheduled Procedures Name Priority Associated Diagnoses Date/Ti me EGD, UPPER GI ENDOSCOPY (WRV U 2.09) Hepatic cirrhosis, unspecified hepatic cirrhosis type, unspecified whether ascites present documented as of this encounter Goals Goal Patient Goal Type Associated Problems Recent Progress Patient-Stated? Author movement Exercise On track(2021 11:16 AM EDT) No Pankaj Mcadams Note: Try gentle movement like chair yoga, t'ai chi and qigong. Health It Compliance Analyst will send hand-outs. Use resistance bands. Health It Compliance Analyst will request a set be mailed. [...] start with protein (cottage cheese, [place] yogurt, protein smoothies, chicken or chicken salad [...] for sample meal [facility] Keep food log until you are seen by the dieititian. Record everything you eat or drink, include time eaten and any emotional changes that are significant. relaxation/sleep Lifestyle No Pankaj Mcadams Note: Try some meditation/relaxation apps when I wake in the night and can't go back to sleep. Health It Compliance Analyst will send some to try. Tried apps but don't really like them as I like the quiet when going to sleep. [facility] 04/23 documented as of this encounter Visit Diagnoses Not on filedocumented in this encounter Care Teams Fisher Seal Relationship Specialty Start Date End Date Justino Lucia MD PCP - General Family Medicine 10/04/21 documented as of this encounter
--- OUTSIDE RECORDS SUMMARY | 2024-07-07 13:38 | XMS_ITS | Encounter Summary ---
Author Organization [facility] Address [facility] [place] [address] Care Team Providers Care Heel Dipper Name Role Phone Justino Lucia MD Primary Care Provider [phone] Encounter Details Date Type Department Care Team (Latest Contact Info) Description 12/31/2022 2:00 PM EDT TH Visit (TeleHealth) [place] [address] Kay Tao, PhD [facility] [address] [facility] [place] [address] Class 3 severe obesity with serious comorbidity [...] Progress Notes * Kay Tao, PhD - 12/31/2022 2:00 PM EDT TAKE ACTION! TO PROMOTE YOUR HEALTH GROUP PROGRESS NOTE Session #3 Time Spent: 120 minutes Session 11/07 Number of participants: 11 Co-Leaders: none SUBJECTIVE: Chief Complaint: Telma Richter is a 72 y.o. female who was referred for group health-behavior intervention to enhance she engagement in obesity management OBJECTIVE: Interventions: ??? Reviewed between session exercises and concepts from previous session ??? Completed a mindful awareness exercise: Touching the Now ??? Introduced skill to increase self-management of lapses: Chain Analysis ??? Practiced problem solving skills for challenging situations: Coping ahead ASSESSMENT: Pertinent Mental Status Exam: WNL Patient's verbal/interpersonal exchange with other participants: appropriate Telma reported that she was able to achieve her action plan and it was actually manageable for her.Telma noted that in addition to her goal she also completed some physical activity. Telma's action plan for the coming week is: maintain previous goal and walking stairs in her home 3x/wk. PLAN: Follow-up appointment scheduled for return in 1 Weeks. Assigned Homework: Complete chain analysis for between session lapse, initiate coping ahead plan, values-based action, and complete diary card documented in this encounter Plan of Treatment Upcoming Encounters Date Type Department Care Team (Late st Contact Info) Description 07/22/2024 9:00 AM EST [place] [address] Ana Ho MD [facility] [place] [address] 07/22/2024 10:00 AM EST Laboratory Appointment Lab [address] [place] [phone] 07/22/2024 11:00 AM EST Office [place] [address] Ana Ho MD [facility] [place] [address] 09/15/2024 10:00 AM EST TH Visit (TeleHealth) [place] [phone] Candy Clifford MD [facility] [address] [facility] [address] Scheduled Procedures Name Priority Associated Diagnoses Date/Ti [...] yoga, t'ai chi and qigong. Health Manager Linux will send hand-outs. Use resistance bands. Health Manager Linux will request a set be mailed. Movement [...] opportunity to start with protein (cottage cheese, palestinian yogurt, protein smoothies, chicken or chicken salad [...] for sample meal ideas in the [facility] Keep food log until you are seen by the dieititian. Record everything you eat or drink, include time eaten and any emotional changes that are significant. relaxation/sleep Lifestyle No Pankaj Mcadams Note: Try some meditation/relaxation apps when I wake in the night and can't go back to sleep. Health Manager Linux will send some to try. Tried apps but don't really like them as I like the quiet when going to sleep. [facility] 04/23 documented as of this encounter Visit Diagnoses Diagnosis Class 3 severe obesity with serious comorbidity and body mass index (BMI) of 50.0 to 59.9 in adult, unspecified obesity type documented in this encounter Care Teams Heel Dipper Relationship Specialty Start Date End Date Justino Lucia MD PCP - General Family Medicine 10/04/21 documented as of this encounter
--- OUTSIDE RECORDS SUMMARY | 2024-07-07 13:38 | XMS_ITS | Encounter Summary ---
Author Organization [facility] [place] [address] Care Team Providers Care Financial Engineer Name Role Phone Justino Lucia MD Primary Care Provider [phone] Encounter Details Date Type Department Care Team (Late st Contact Info) Description 08/09/2022 12:00 PM EST Notes Only Weight and Wellness at [facility] [address] [place] [address] Arrived Social History Tobacco Use Types Packs/Day [...] 07/22/2024 9:00 AM EST [place] [phone] Ana Ho MD [facility] [place] [address] 07/22/2024 10:00 AM EST Laboratory Appointment Lab [address] [place] [phone] 07/22/2024 11:00 AM EST Office [place] [address] Ana Ho MD [facility] GASTROENTEROLOGY [place], [place] [phone] 09/15/2024 10:00 AM EST TH Visit (TeleHealth) [place] [address] Candy Clifford MD [facility] DR [facility] PERDOM[place] [address] Scheduled Procedures Name Priority Associated [...] chair yoga, t'ai chi and qigong. Health Case Operator will send hand-outs. Use resistance bands. Health Case Operator will request a set be mailed. [...] opportunity to start with protein (cottage cheese, bulgarian yogurt, protein smoothies, chicken or chicken salad [...] meal ideas in the USPS [facility] Keep food log until you are seen by the dieititian. Record everything you eat or drink, include time eaten and any emotional changes that are significant. relaxation/sleep Lifestyle No Pankaj Mcadams Note: Try some meditation/relaxation apps when I wake in the night and can't go back to sleep. Health Case Operator will send some to try. Tried apps but don't really like them as I like the quiet when going to sleep. [facility] 04/23 documented as of this encounter Visit Diagnoses Not on filedocumented in this encounter Care Teams Financial Engineer Relationship Specialty Start Date End Date Justino Lucia MD PCP - General Family Medicine 10/04/21 documented as of this encounter
--- OUTSIDE RECORDS SUMMARY | 2024-07-07 13:38 | XMS_ITS | Encounter Summary ---
Author Organization [facility] [place] [address] Care Team Providers Care Moisture Machine Tender Name Role Phone Justino Lucia MD Primary Care Provider [phone] Encounter Details Date Type Department Care Team (Late st Contact Info) Description 12/05/2022 Telephone [place] [phone] Donna Almonte Social History Tobacco Use Types [...] 07/22/2024 9:00 AM EST [place] [phone] Ana Ho MD [facility] [place] [address] 07/22/2024 10:00 AM EST Laboratory Appointment Lab [address] [place] [phone] 07/22/2024 11:00 AM EST Office [place] [address] Ana Ho MD [facility] [place] [address] 09/15/2024 10:00 AM EST TH Visit (TeleHealth) [place] [address] Candy Clifford MD [facility] DR [facility] PERDOM[facility] [address] Scheduled Procedures Name Priority Associated Diagnoses Date/Ti me EGD, UPPER GI ENDOSCOPY (WRV U 2.09) Hepatic cirrhosis, unspecified hepatic cirrhosis type, unspecified whether ascites present documented as of this encounter Goals Goal Patient Goal Type Associated Problems Recent Progress Patient-Stated? Author movement Exercise On track(2021 11:16 AM EDT) No Pankaj Mcadams Note: Try gentle movement like chair yoga, t'ai chi and qigong. Health Industrial Twisting Machine Operator will send hand-outs. Use resistance bands. Health Industrial Twisting Machine Operator will request a set be [...] opportunity to start with protein (cottage cheese, russian yogurt, protein smoothies, chicken or chicken salad [...] for sample meal ideas in the [facility] Keep food log until you are seen by the dieititian. Record everything you eat or drink, include time eaten and any emotional changes that are significant. relaxation/sleep Lifestyle No Pankaj Mcadams Note: Try some meditation/relaxation apps when I wake in the night and can't go back to sleep. Health Industrial Twisting Machine Operator will send some to try. Tried apps but don't really like them as I like the quiet when going to sleep. [facility] 04/23 documented as of this encounter Visit Diagnoses Not on filedocumented in this encounter Care Teams Moisture Machine Tender Relationship Specialty Start Date End Date Justino Lucia MD PCP - General Family Medicine 10/04/21 documented as of this encounter
--- OUTSIDE RECORDS SUMMARY | 2024-07-07 13:38 | XMS_ITS | Encounter Summary ---
Author Organization [facility] Address [facility] Alber [facility] [place] [address] Care Team Providers Care Television Repairer Name Role Phone Justino Lucia MD Primary Care Provider [phone] Encounter Details Date Type Department Care Team (Late Contact Info) Description 06/22/2022 Telephone Weight and Wellness at [facility] [address] [place] [phone] Claudia Marshall, NEIGHBORHOOD COORDINATOR Social History Tobacco Use Types Packs/Day Years [...] encounter Miscellaneous Notes * Telephone Encounter - Claudia Marshall CMA - 06/22/2022 2:27 PM EDT [facility] Doubler Operator Pre-telemedicine Visit Phone Note Telma Richter 1950 [] Patient was not reached Patient was reached and the following information was reviewed/obtained per protocol: [x] Confirmed patient name and date of [x] Confirmed ZOOM downloaded and functioning [] ZOOM appointment link sent if no MyDH [x] Phone number to be reached is: [phone] REVIEW: [x] Review of patient medications completed Have you started on any NEW medications? [] No [x] Yes:motoperole [x] Confirmed preferred pharmacy: [facility] Rem[facility] Your provider might ask you what you ate the day prior to the visit Please weigh yourself before the appointment Pedi: Both parent and child need to be present for the visit documented in this encounter Plan of Treatment Upcoming Encounters Date Type Department Care Team (Late st Contact Info) Description 07/22/2024 9:00 AM EST Appointment Ultrasound at [place] [phone] Ana Ho MD [facility] [place] [address] 07/22/2024 10:00 AM EST Laboratory Appointment Lab [address] [place] [address] 07/22/2024 11:00 AM EST Office [place] [address] Ana Ho MD [facility] [place] [address] 09/15/2024 10:00 AM EST TH Visit (TeleHealth) [place] [address] Candy Clifford MD [facility] DR [facility] PERDOMO[facility] [address] Scheduled Procedures Name Priority Associated Diagnoses Date/Ti me EGD, UPPER GI ENDOSCOPY (WRV U 2.09) Hepatic cirrhosis, unspecified hepatic cirrhosis type, unspecified whether ascites present documented as of this encounter Goals Goal Patient Goal Type Associated Problems Recent Progress Patient-Stated? Author movement Exercise On track(2021 11:16 AM EDT) No Pankaj Mcadams Note: Try gentle movement like chair yoga, t'ai chi and qigong. Health Tar Pot Man will send hand-outs. Use resistance bands. Health Tar Pot Man will request a set be mailed. Movement [...] and can't go back to sleep. Health Tar Pot Man will send some to try. Tried apps but don't really like them as I like the quiet when going to sleep. [facility] 04/23 documented as of this encounter Visit Diagnoses Not on filedocumented in this encounter Care Teams Television Repairer Relationship Specialty Start Date End Date Justino Lucia MD PCP - General Family Medicine 10/04/21 documented as of this encounter
--- OUTSIDE RECORDS SUMMARY | 2024-07-07 13:38 | XMS_ITS | Encounter Summary ---
Author Organization [facility] [place] [address] Care Team Providers Care Cook Specialty Foreign Food Name Role Phone Justino Lucia MD Primary Care Provider [phone] Encounter Details Date Type Department Care Team (Latest Contact Info) Description 12/11/2022 8:30 AM EDT TH Visit (TeleHealth) [place] [address] [facility] [place] [address] Class 3 severe obesity with serious comorbidity [...] on file documented as of this encounter Patient Instructions * Patient Instructions* Lacey Martino RD - 12/11/2022 8:30 AM EDT Images from the original note were not included. Goals Addressed This Visit's Progress Nutrition Nutrition Goals updated today: 12/11/22 TF 1. Focus on reaching adequate protein intake - aim for 60-80 grams (handout attached in after visitsummary) 2. Consider the 3 eating events per day to be an opportunity to start with protein (cottage cheese,ukrainian yogurt, protein smoothies, chicken or chicken salad [...] for sample meal [facility] in the [facility] Keep food log until you are seen by the dieititian. Record everything you eat or drink, include time eaten and any emotional changes that are significant. documented in this encounter Progress Notes * Lacey Martino RD - 12/11/2022 8:30 AM EDT Nutrition Intervention for Weight Management Follow-up RD visit with ERIKA Mejia 1950 Patient confirms visit conducted while patient was in the following state: [place] Weight Today: Wt Readings from Last 3 Encounters: 12/05/22 (!) 136.2 kg (300 lb 3.2 oz) 09/25/22 (!) 138.3 kg (305 lb) 06/25/22 (!) 142.9 kg (315 lb) BMI Readings from Last 3 Encounters: 12/05/22 54.91 kg/m?? 09/25/22 55.79 kg/m?? 06/25/22 57.61 kg/m?? Pertinent Meds: Ozempic Interview: Pt has a bladder issue so gets up many times to go to the bathroom; sleep is poor. Has very bad bladder urgency. 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 Pt has daughter and 2 grandchildren living with her; the fruits and veggies are being eaten by the grandchildren. Telma is going to start her garden soon to increase vegetable intake and will utilize [employer] veggie s tand as often as possible. Pt has a 20% TBW loss today from highest weight of 371#. PT is helping to improve better movement; able to walk w/o cane now. Typical Dietary Intake: Water; 1 x/wk medium iced coffee with cream and sugar caramel swirl B: skips; rarely - maybe 8-10 am might have an egg and toast OR a banana at 11 am L: 2-3 pm - store bought buffalo chicken and BBQ nuggets D: because lunch is so late, not hungry for dinner and spaghetti and butter last night 1.5 cups S: Typical Beverages: [x] coffee; 1 medium caramel swirl 1x/week [x] water - (total: 1-4 cups water/day [x] plain [] crystal light or other sugar-free additive Appetite/Hunger: [x] feels managed with foods/meals outlined above [] discussed meal/snack schedule adjustment today- see goals [] patient identifies eating for reasons other than hunger- see interview Previous Goals: Goals ??? movement Try gentle movement like chair yoga, t'ai chi and qigong. Health Radio Adjuster will send hand-outs. Use resistance bands. Health Radio Adjuster will request a set be mailed. ??? Movement Look around town, senior center, gyms, for a class to participate in, bone builders or gentle stretching. ??? Nutrition Nutrition Goals: 03/16/22 TF Write down meal ideas (statred this today) - look for sample meal ideas in the USPS [facility] Keep food log until you are seen by the dieititian. Record everything you eat or drink, include time eaten and any emotional changes that are significant. ??? relaxation/sleep Try some meditation/relaxation apps when I wake in the night and can't go back to sleep. Health Radio Adjuster will send some to try. Tried apps but don't really like them as I like the quiet when going to sleep. [facility] 04/23 Other topics discussed: [x] Eating an appropriate amount of food for your body; protein needs disucssed [] Scheduled times / frequency of eating [] Reduce highly processed foods, refined carbohydrates, in favor of whole foods [] Reduce sweet taste in your diet (whether by sugar or non-nutritive sweeteners) [x] Increase fruits and non-starchy veggies [] Increase fiber through f&v, whole grains, legumes (goal of 25 g/day women ; 35 g/day men) [] Replace processed meat with other meat, fish, or, ideally, plant-based proteins (Good, Better,Best handout provided? [x] ) [] Consider adding or increasing fermented foods Activity: [x] reviewed current goals; Bone Builders 2 x and PT 2 x wk [] updated goals [] Did not discuss today Nutrition Goals updated today: 1. Focus on reaching adequate protein intake - aim for 60-80 grams (handout attached in after visitsummary) 2. Consider the 3 eating events per day to be an opportunity to start with protein (cottage cheese,ukrainian yogurt, protein smoothies, chicken or chicken salad [...] of protein first, vegetable next, starch last Monitor/Evaluate: No follow-ups on file. Aim for 5-10% weight loss from ABW x 3-6 months from initial visit; pt met goals at 20% TBW loss Thank you Lacey Martino MS RD LD 30 minutes were spent in visit today, includ ing contact with patient, chart review, and documentation documented in this encounter Plan of Treatment Upcoming Encounters Date Type Department Care Team (Late st Contact Info) Description 07/22/2024 9:00 AM EST [place] [address] Ana Ho MD [facility] [place] [address] 07/22/2024 10:00 AM EST Laboratory Appointment Lab [address] [place] [address] 07/22/2024 11:00 AM EST Office [place] [address] Ana Ho MD [facility] [place] [address] 09/15/2024 10:00 AM EST TH Visit (TeleHealth) [place] [address] Candy Clifford MD [facility] DR [facility] PERDOM[place] [address] Scheduled Procedures Name Priority Associated Diagnoses Date/Ti me EGD, UPPER GI ENDOSCOPY (WRV U 2.09) Hepatic cirrhosis, unspecified hepatic cirrhosis type, unspecified whether ascites present documented as of this encounter Goals Goal Patient Goal Type Associated Problems Recent Progress Patient-Stated? Author movement Exercise On track(2021 11:16 AM EDT) No Pankaj Mcadams Note: Try gentle movement like chair yoga, t'ai chi and qigong. Health Radio Adjuster will send hand-outs. Use resistance bands. Health Radio Adjuster will request a set be mailed. Movement [...] opportunity to start with protein (cottage cheese, ukrainian yogurt, protein smoothies, chicken or chicken salad [...] for sample meal ideas in the USPS [facility] Keep food log until you are seen by the dieititian. Record everything you eat or drink, include time eaten and any emotional changes that are significant. relaxation/sleep Lifestyle No Pankaj Mcadams Note: Try some meditation/relaxation apps when I wake in the night and can't go back to sleep. Health Radio Adjuster will send some to try. Tried apps but don't really like them as I like the quiet when going to sleep. [facility] 04/23 documented as of this encounter Visit Diagnoses Diagnosis Class 3 severe obesity with serious comorbidity and body mass index (BMI) of 50.0 to 59.9 in adult, unspecified obesity type documented in this encounter Care Teams Cook Specialty Foreign Food Relationship Specialty Start Date End Date Justino Lucia MD PCP - General Family Medicine 10/04/21 documented as of this encounter
--- OUTSIDE RECORDS SUMMARY | 2024-07-07 13:38 | XMS_ITS | Encounter Summary ---
Author Organization [facility] [place] [address] Care Team Providers Care Raw Mill Operator Name Role Phone Justino Lucia MD Primary Care Provider [phone] Encounter Details Date Type Department Care Team (Late st Contact Info) Description 05/30/2022 12:00 PM EDT Notes Only Weight and Wellness at [facility] [address] [place] [phone] Social History Tobacco Use Types Packs/Day Years [...] 07/22/2024 9:00 AM EST Appointment [place] [address] Ana Ho MD [facility] [place] [address] 07/22/2024 10:00 AM EST Laboratory Appointment Lab [address] [place] [phone] 07/22/2024 11:00 AM EST Office [place] [address] Ana Ho MD [facility] GASTROENTEROLOGY [place], [place] [phone] 09/15/2024 10:00 AM EST TH Visit (TeleHealth) [place] [address] Candy Clifford MD [facility] DR [facility]ICHOL[facility] PERDOOM-[place] [address] Scheduled Procedures Name Priority Associated [...] chair yoga, t'ai chi and qigong. Health Hop Picker will send hand-outs. Use resistance bands. Health Hop Picker will request a set be mailed. Movement [...] for sample meal ideas in the USPS [facility] Keep food log until you are seen by the dieititian. Record everything you eat or drink, include time eaten and any emotional changes that are significant. relaxation/sleep Lifestyle No Pankaj Mcadams Note: Try some meditation/relaxation apps when I wake in the night and can't go back to sleep. Health Hop Picker will send some to try. Tried apps but don't really like them as I like the quiet when going to sleep. [facility] 04/23 documented as of this encounter Visit Diagnoses Not on filedocumented in this encounter Care Teams Raw Mill Operator Relationship Specialty Start Date End Date Justino Lucia MD PCP - General Family Medicine 10/04/21 documented as of this encounter
--- OUTSIDE RECORDS SUMMARY | 2024-07-07 13:38 | XMS_ITS | Encounter Summary ---
Author Organization [facility] [place] [address] Care Team Providers Care Phlebotomy Program Coordinator Name Role Phone Justino Lucia MD Primary Care Provider [phone] Encounter Details Date Type Department Care Team (Late st Contact Info) Description 05/16/2022 12:00 PM EDT Notes Only Weight and Wellness at [facility] [address] [place] [address] Arrived Social History Tobacco Use Types Packs/Day [...] 07/22/2024 9:00 AM [place] [phone] Ana Ho MD [facility] [place] [address] 07/22/2024 10:00 AM EST Laboratory Appointment Lab [address] [place] [phone] 07/22/2024 11:00 AM EST Office [place] [address] Ana Ho MD [facility] [place] [address] 09/15/2024 10:00 AM EST TH Visit (TeleHealth) [place] [address] Candy Clifford MD [facility] DR [facility]ICHOL[facility] PERDOMO[facility] [address] Scheduled Procedures Name Priority Associated Diagnoses Date/Ti me EGD, UPPER GI ENDOSCOPY (WRV U 2.09) Hepatic cirrhosis, unspecified hepatic cirrhosis type, unspecified whether ascites present documented as of this encounter Goals Goal Patient Goal Type Associated Problems Recent Progress Patient-Stated? Author movement Exercise On track(2021 11:16 AM EDT) No Pankaj Mcadams Note: Try gentle movement like chair yoga, t'ai chi and qigong. Health Proposal Specialist will send hand-outs. Use resistance bands. Health Proposal Specialist will request a set be mailed. [...] and can't go back to sleep. Health Proposal Specialist will send some to try. Tried apps but don't really like them as I like the quiet when going to sleep. [facility] 04/23 documented as of this encounter Visit Diagnoses Not on filedocumented in this encounter Care Teams Phlebotomy Program Coordinator Relationship Specialty Start Date End Date Justino Lucia MD PCP - General Family Medicine 10/04/21 documented as of this encounter
--- OUTSIDE RECORDS SUMMARY | 2024-07-07 13:38 | XMS_ITS | Encounter Summary ---
Author Organization [facility] [place] [address] Care Team Providers Care Crm Solution Architect Name Role Phone Justino Lucia MD Primary Care Provider [phone] Encounter Details Date Type Department Care Team (Latest Contact Info) Description 12/31/2022 Travel Social History Tobacco Use Types Packs/Day [...] 07/22/2024 9:00 AM EST [place] [phone] Ana Ho MD [facility] [place] [address] 07/22/2024 10:00 AM EST Laboratory Appointment Lab [address] [place] [phone] 07/22/2024 11:00 AM EST Office [place] [phone] Ana Ho MD [facility] [place] [address] 09/15/2024 10:00 AM EST TH Visit (TeleHealth) Weight and Wellness at [facility] [place] [address] Candy Clifford MD [facility] DR [facility] [place] [address] Scheduled Procedures Name Priority Associated Diagnoses Date/Ti [...] yoga, t'ai chi and qigong. Health Manager Management will send hand-outs. Use resistance bands. Health Manager Management will request a set be mailed. Movement [...] opportunity to start with protein (cottage cheese, luxembourger yogurt, protein smoothies, chicken or chicken salad [...] for sample meal ideas in the USPS [facility] Keep food log until you are seen by the dieititian. Record everything you eat or drink, include time eaten and any emotional changes that are significant. relaxation/sleep Lifestyle Pankaj Russ Note: Try some meditation/relaxation apps when I wake in the night and can't go back to sleep. Health Manager Management will send some to try. Tried apps but don't really like them as I like the quiet when going to sleep. [facility] 04/23 documented as of this encounter Visit Diagnoses Not on filedocumented in this encounter Care Teams Crm Solution Architect Relationship Specialty Start Date End Date Justino Lucia MD PCP - General Family Medicine 10/04/21 documented as of this encounter
--- OUTSIDE RECORDS SUMMARY | 2024-07-07 13:38 | XMS_ITS | Encounter Summary ---
Author Organization [facility] [place] [address] Care Team Providers Care Wire Weaver Cloth Name Role Phone Justino Lucia MD Primary Care Provider [phone] Encounter Details Date Type Department Care Team (Latest Contact Info) Description 06/28/2022 Travel Social History Tobacco Use Types Packs/Day [...] 07/22/2024 9:00 AM [place] [phone] Ana Ho MD [facility] [place] [address] 07/22/2024 10:00 AM EST Laboratory Appointment Lab [address] [place] [phone] 07/22/2024 11:00 AM EST Office [place] [phone] Ana oH MD [facility] [place] [address] 09/15/2024 10:00 AM EST TH Visit (TeleHealth) Weight and Wellness at [facility] [place] [address] Candy Clifford MD [facility] DR [facility] [address] Scheduled Procedures Name Priority Associated Diagnoses Date/Ti me EGD, UPPER GI ENDOSCOPY (WRV U 2.09) Hepatic cirrhosis, unspecified hepatic cirrhosis type, unspecified whether ascites present documented as of this encounter Goals Goal Patient Goal Type Associated Problems Recent Progress Patient-Stated? Author movement Exercise On track(2021 11:16 AM EDT) No Pankaj Mcadams Note: Try gentle movement like chair yoga, t'ai chi and qigong. Health Dye Reel Operator will send hand-outs. Use resistance bands. Health Dye Reel Operator will request a set be mailed. [...] to start with protein (cottage cheese, south korean yogurt, protein smoothies, chicken or chicken salad [...] meal ideas in the USPS [facility] Keep food log until you are seen by the dieititian. Record everything you eat or drink, include time eaten and any emotional changes that are significant. relaxation/sleep Lifestyle Pankaj Russ Note: Try some meditation/relaxation apps when I wake in the night and can't go back to sleep. Health Dye Reel Operator will send some to try. Tried apps but don't really like them as I like the quiet when going to sleep. [facility] 04/23 documented as of this encounter Visit Diagnoses Not on filedocumented in this encounter Care Teams Wire Weaver Cloth Relationship Specialty Start Date End Date Justino Lucia MD PCP - General Family Medicine 10/04/21 documented as of this encounter
--- OUTSIDE RECORDS SUMMARY | 2024-07-07 13:38 | XMS_ITS | Encounter Summary ---
Author Organization [facility] [place] [address] Care Team Providers Care Reverser Name Role Phone Justino Lucia MD Primary Care Provider Encounter Details Date Type Department Care Team (Late st Contact Info) Description 12/03/2022 5:30 PM EDT Notes [place] [phone] Social History Tobacco Use Types Packs/Day Years [...] 07/22/2024 9:00 AM [place] [phone] Ana Ho MD [facility] [place] [address] 07/22/2024 10:00 AM EST Laboratory Appointment Lab [address] [place] [phone] 07/22/2024 11:00 AM EST Office [place] [phone] Ana Ho MD [facility] [place] [address] 09/15/2024 10:00 AM EST TH Visit (TeleHealth) [place] [address] Candy Clifford MD [facility] DR [facility] [address] Scheduled Procedures Name Priority Associated Diagnoses Date/Ti me EGD, UPPER GI ENDOSCOPY (WRV U 2.09) Hepatic cirrhosis, unspecified hepatic cirrhosis type, unspecified whether ascites present documented as of this encounter Goals Goal Patient Goal Type Associated Problems Recent Progress Patient-Stated? Author movement Exercise On track(2021 11:16 AM EDT) No Pankaj Mcadams Note: Try gentle movement like chair yoga, t'ai chi and qigong. Health General Warehouse Associate will send hand-outs. Use resistance bands. Health General Warehouse Associate will request a set be mailed. [...] opportunity to start with protein (cottage cheese, tongan yogurt, protein smoothies, chicken or chicken salad [...] for sample meal [facility] in the [facility] Keep food log until you are seen by the dieititian. Record everything you eat or drink, include time eaten and any emotional changes that are significant. relaxation/sleep Lifestyle No Pankaj Mcadams Note: Try some meditation/relaxation apps when I wake in the night and can't go back to sleep. Health General Warehouse Associate will send some to try. Tried apps but don't really like them as I like the quiet when going to sleep. [facility] 04/23 documented as of this encounter Visit Diagnoses Not on filedocumented in this encounter Care Teams Reverser Relationship Specialty Start Date End Date Justino Lucia MD PCP - General Family Medicine 10/04/21 documented as of this encounter
--- OUTSIDE RECORDS SUMMARY | 2024-07-07 13:38 | XMS_ITS | Encounter Summary ---
Author Organization [facility] [place] [address] Care Team Providers Care Senior Android Software Engineer Name Role Phone Justino Lucia MD Primary Care Provider [phone] Encounter Details Date Type Department Care Team (Late st Contact Info) Description 05/23/2022 12:00 PM EDT Notes Only Weight and Wellness at [facility] [address] [place] [phone] Arrived Social History Tobacco Use Types Packs/Day [...] 9:00 AM EST Appointment [place] [phone] Ana Ho MD [facility] [place] [place] [address] 07/22/2024 10:00 AM EST Laboratory Appointment Lab [address] [place] [phone] 07/22/2024 11:00 AM EST Office Visit [place] [address] Ana Ho MD [facility] [place] [address] 09/15/2024 10:00 AM EST TH Visit (TeleHealth) [place] [address] Candy Clifford MD [facility] DR [facility] [place] [address] Scheduled Procedures Name Priority Associated Diagnoses Date/Ti me EGD, UPPER GI ENDOSCOPY (WRV U 2.09) Hepatic cirrhosis, unspecified hepatic cirrhosis type, unspecified whether ascites present documented as of this encounter Goals Goal Patient Goal Type Associated Problems Recent Progress Patient-Stated? Author movement Exercise On track(2021 11:16 AM EDT) No Pankaj Mcadams Note: Try gentle movement like chair yoga, t'ai chi and qigong. Health Marketing Finance Manager will send hand-outs. Use resistance bands. Health Marketing Finance Manager will request a set be mailed. [...] opportunity to start with protein (cottage cheese, divehi yogurt, protein smoothies, chicken or chicken salad [...] and can't go back to sleep. Health Marketing Finance Manager will send some to try. Tried apps but don't really like them as I like the quiet when going to sleep. [facility] 04/23 documented as of this encounter Visit Diagnoses Not on filedocumented in this encounter Care Teams Senior Android Software Engineer Relationship Specialty Start Date End Date Justino Lucia MD PCP - General Family Medicine 10/04/21 documented as of this encounter
--- OUTSIDE RECORDS SUMMARY | 2024-07-07 13:38 | XMS_ITS | Encounter Summary ---
Author Organization [facility] Address [facility] [place] [address] Care Team Providers Care Counter Molder Name Role Phone Justino Lucia MD Primary Care Provider [phone] Encounter Details Date Type Department Care Team (Late st Contact Info) Description 09/25/2022 11:00 AM EST TH Visit (TeleHealth) [place] [address] Candy Clifford MD [facility] DR [facility]DOM[facility] [address] Class 3 severe obesity with serious comorbidity and body mass index (BMI) of 50.0 to 59.9 in adult, unspecified obesity type; Insulin resistance; Hypertension, unspecified type; Prediabetes; Hyperlipidemia, unspecified hyperlipidemia type Social History Tobacco Use Types Packs/Day [...] Sign Reading Time Taken Comments Blood Pressure - - Pulse - - Temperature - - Respiratory Rate - - Oxygen Saturation - - Inhaled Oxygen Concentration - - Weight 138.3 kg (305 lb) 09/25/2022 11:21 AM EST Pt reported Height - - Body Mass Index 55.79 06/05/2022 9:48 AM EDT documented in this encounter Progress Notes * Candy Clifford MD - 09/25/2022 11:00 AM ESTSummary: 5th visit with Patient provided verbal consent prior to initiation of this telemedicine encounter and expressed understanding that the telemedicine visit may be billed similar to a clinic visit, pt was seen while via [x] Video [] phone For this video visit, pt is located at: [facility] Patient Name: Telma Richter Date of : 1950 Age: 72 y.o. Justino Lucia MD Thank you for referring Telma Richter to the [facility]. I saw her for a follow-upvisit today, 10/01/22. Please see changes to care as documented in the assessment and plan. CHIEF COMPLAINT: F/u for treatment of WHO Class 3 / EOSS Stage 2 Obesity defined by initial BMI and comorbidities:HTN, Hyperlipidemia and Vitamin D deficiency. GERD. OA. This is Visit #5 [facility] visit for this 72 y.o. patient. Weight gain due to: Unclear - sits at home; notes gaining weight when she moved here from [place] to take care of her dad about 10 years ago. Multiple deaths in the family in the same time frame. Initial weight 01/18/22: 335 lbs (33.5 lbs, 10%) 03/01/2022, 335 lbs (no change) 04/20/2022, 328.5 lbs (-6.5 lbs) 06/25/2022, 315 lbs (-13.5 lbs, -20 lbs) 09/25/2022, 305 lbs (- 10 lbs, - 30 lbs) [facility] Team: Lacey Martino RD and Pankaj Mcadams, Health Hall Supervisor HPI Life is ok, had some heart palpitations after running out of metoprolol. Went to ED and was treated. Heart is better but then tripped and fell same day. R side hurts, underneath the breast, can take a deep breath in. Is going to get evaluated bc it hasbeen a week and she is bruised pretty good. Been kind of tough, up and down, getting myself into a comfortable eating routine - sometimes I eatand sometimes I don't. PILLARS Stress: notes bickering with her daughter who is living with her; likes having her grand-kids around - now that eldest is living w her father, things are better. I have them 25/03. But letting things go, some financial stress. Notes mother turned 97 and is doing well overall! Sleep: so-so, not sure why, a lot of it is bc of using BR - worse in wintertime than summer. On Lasix and Mybetrique. Movement: not doing a lot lately, not in PT anymore, has exercises to do at home. Walking without cane. Wants a recumbent bike. Recall: B - eggs, tooast, sausages, hash D - fettuccine chicken jenna Drinking a lot more water - 16 oz x 2-3 AOM: Currently taking: Ozempic 1 mg AOM [...] gabapentin REVIEW OF LABS/DIAGNOSIS SINCE LAST VISIT [x] I reviewed past / interim records including notes and labs. ONGOING INTERVENTIONS (Topics discussed today in BOLD): For specific behavioral interventions, see goals Nutrition: specific recommendations per RD Behavior: NO CONCERNS Activity: Provided resistance band and booklet-advancing Barriers: []needs cardiac eval []injury/pain preventing activity right now Stress Management:no concerns Sleep: no concerns Self-monitoring: Food log Pathway: [x]Individual [x]HLP - completed ES, MS []Surgery []Culinary []ACT []Monthly Lifestyle Classes Discussion 10/01/22: Current pillars reviewed. Doing well overall, needs to think about re-incorporating PT exercises or asking PCP for a new referral. Will do HLP-LS next. Continue MD follow-up. [facility] 01/18/2022 Obesity Medicine Activate Goals ??? movement Try gentle movement like chair yoga, t'ai chi and qigong. Health Hall Supervisor will send hand-outs. Use resistance bands. Health Hall Supervisor will request a set be mailed. ??? Movement Look around town, senior center, gyms, for a class to participate in, bone builders or gentle stretching. ??? Nutrition Nutrition Goals: 03/16/22 TF Write down meal ideas (statred this today) - look for sample meal [facility] Keep food log until you are seen by the dieititian. Record everything you eat or drink, include time eaten and any emotional changes that are significant. ??? relaxation/sleep Try some meditation/relaxation apps when I wake in the night and can't go back to sleep. Health Hall Supervisor will send some to try. Tried apps but don't really like them as I like the quiet when going to sleep. [facility] 04/23 VITAL SIGNS: Vitals: 09/25/22 1121 Weight: (!) 138.3 kg (305 lb) Body mass index is 55.79 kg/m??. PHYSICAL EXAM: Gen: Alert and appropriate, [...] for: GLUCFASTING Lab Results Component Value Date [id number] 1,091 (H) 01/25/2022 25-OH Vit D Total [...] Vitamin D deficiency. GERD. OA. Referrals pending: Dietitian, Health Hall Supervisor AOM: Ozempic 1 mg Diagnoses and all orders for this visit: Class 3 severe obesity with serious comorbidity and body mass index (BMI) of 50.0 to 59.9 in adult,unspecified obesity type Insulin resistance Hypertension, unspecified type Prediabetes Hyperlipidemia, unspecified hyperlipidemia type No orders of the defined types were placed in this encounter. Return in about 10 weeks (around 12/04/2022) for In person or Zoom, With GINNY dooley. 1 min chart review 30 min [id number] Visit time 5 min Documentation time I [...] 07/22/2024 9:00 AM [place] [phone] Ana Ho MD [facility] [place] [address] 07/22/2024 10:00 AM EST Laboratory Appointment Lab [address] [place] [address] 07/22/2024 11:00 AM EST Office [place] [phone] Ana Ho MD [facility] [place] [address] 09/15/2024 10:00 AM EST TH Visit (TeleHealth) [place] [address] Candy Clifford MD [facility] DR [facility] [address] Scheduled Procedures Name Priority Associated Diagnoses Date/Ti me EGD, UPPER GI ENDOSCOPY (WRV U 2.09) Hepatic cirrhosis, unspecified hepatic cirrhosis type, unspecified whether ascites present documented as of this encounter Goals Goal Patient Goal Type Associated Problems Recent Progress Patient-Stated? Author movement Exercise On track(2021 11:16 AM EDT) No Pankaj Mcadams Note: Try gentle movement like chair yoga, t'ai chi and qigong. Health Hall Supervisor will send hand-outs. Use resistance bands. Health Hall Supervisor will request a set be mailed. Movement Exercise On track(2021 11:16 AM EDT) No Pankaj Mcadams Note: Look around town, senior center, gyms, for a class to participate in, bone builders or gentle stretching. Nutrition Lifestyle Candy Centeno MD Note: Nutrition Goals updated today: 12/11/22 [...] and can't go back to sleep. Health Hall Supervisor will send some to try. Tried apps but don't really like them as I like the quiet when going to sleep. [facility] 04/23 documented as of this encounter Visit Diagnoses Diagnosis Class 3 severe obesity with serious comorbidity and body mass index (BMI) of 50.0 to 59.9 in adult, unspecified obesity type Insulin resistance Dysmetabolic Syndrome X Hypertension, unspecified type Prediabetes Other abnormal glucose Hyperlipidemia, unspecified hyperlipidemia type documented in this encounter Care Teams Counter Molder Relationship Specialty Start Date End Date Justino Lucia MD PCP - General Family Medicine 10/04/21 documented as of this encounter
--- OUTSIDE RECORDS SUMMARY | 2024-07-07 13:38 | XMS_ITS | Encounter Summary ---
Author Organization [facility] [place] [address] Care Team Providers Care Butadiene Converter Operator Name Role Phone Justino Lucia MD Primary Care Provider [phone] Reason for Referral * Consultation (Routine) - Closed Specialty Diagnoses / Procedures Referred By Marcelo tucker Referred To Contact Weight and Wellness Diagnoses Class 3 severe obesity with serious comorbidity and body mass index (BMI) of 50.0 to 59.9 in adult, unspecified obesity type ACT Group Candy Clifford MD [facility] [place] [address] [facility] [place] [address] Referral ID Status Reason Start Date Expiration Date V isits Requested Visits Authorized [id number] Closed Consult, Test & Treat 12/05/2022 12/05/2023 1 1 Encounter Details Date Type Department Care Team (Late st Contact Info) Description 12/05/2022 Orders Only [place] [phone] Candy Clifford MD [facility] [address], [place] [id number] Class 3 severe obesity with serious comorbidity [...] 07/22/2024 9:00 AM EST Appointment Ultrasound at [place] [phone] Ana Ho MD [facility] [place] [address] 07/22/2024 10:00 AM EST Laboratory Appointment Lab [address] [place] [phone] 07/22/2024 11:00 AM EST Office Visit Gastroenterology at [place] [phone] Ana Ho MD [facility] [place] [address] 09/15/2024 10:00 AM EST TH Visit (TeleHealth) [place] [address] Candy Clifford MD [facility] [address] [facility] [address] Scheduled Procedures Name Priority Associated Diagnoses Date/Ti me EGD, UPPER GI ENDOSCOPY (WRV U 2.09) Hepatic cirrhosis, unspecified hepatic cirrhosis type, unspecified whether ascites present Scheduled Referrals Name Type Priority Associated Diagnoses Orde r Schedule Amb Referral to [facility] Psych Evaluation Outpatient Referral Routine Class 3 severe obesity with serious comorbidity and body mass index (BMI) of 50.0 to 59.9 in adult, unspecified obesity type Ordered: 12/05/2022 documented as of this encounter Goals Goal Patient Goal Type Associated Problems Recent Progress Patient-Stated? Author movement Exercise On track(2021 11:16 AM EDT) No Pankaj Mcadams Note: Try gentle movement like chair yoga, t'ai chi and qigong. Health Cottage Cheese Maker will send hand-outs. Use resistance bands. Health Cottage Cheese Maker will request a set be mailed. [...] for [facility] meal [facility] in the [facility] Keep food log until you are seen by the dieititian. Record everything you eat or drink, include time eaten and any emotional changes that are significant. relaxation/sleep Lifestyle No Pankaj Mcadams Note: Try some meditation/relaxation apps when I wake in the night and can't go back to sleep. Health Cottage Cheese Maker will send some to try. Tried apps but don't really like them as I like the quiet when going to sleep. [facility] 04/23 documented as of this encounter Visit Diagnoses Diagnosis Class 3 severe obesity with serious comorbidity and body mass index (BMI) of 50.0 to 59.9 in adult, unspecified obesity type documented in this encounter Care Teams Butadiene Converter Operator Relationship Specialty Start Date End Date Justino Lucia MD PCP - General Family Medicine 10/04/21 documented as of this encounter
--- OUTSIDE RECORDS SUMMARY | 2024-07-07 13:38 | XMS_ITS | Encounter Summary ---
Author Organization [facility] Address [facility] [place] [address] Care Team Providers Care Crew Foreman Name Role Phone Justino Lucia MD Primary Care Provider [phone] Encounter Details Date Type Department Care Team (Late st Contact Info) Description 06/25/2022 10:00 AM EDT TH Visit (TeleHealth) Weight and Wellness at [facility] [address] [place] [phone] Candy Clifford MD [facility] [address] Hyperlipidemia, unspecified hyperlipidemia type; Prediabetes; Hypertension, unspecified type; Insulin resistance; Class 3 severe obesity with serious comorbidity [...] - Inhaled Oxygen Concentration - - Weight 142.9 kg (315 lb) 06/25/2022 10:10 AM EDT Pt reported Height - - Body Mass Index 57.61 06/05/2022 9:48 AM EDT documented in this encounter Progress Notes * Candy Clifford MD - 06/25/2022 10:00 AM EDTSummary: 4th visit arina GRACE Patient provided verbal consent prior to initiation of this telemedicine encounter and expressed understanding that the telemedicine visit may be billed similar to a clinic visit, pt was seen while via [x] Video [] phone For this video visit, pt is located at: [facility] Patient Name: Telma Richter Date of : 1950 Age: 72 y.o. Justino Lucia MD Thank you for referring Telma Richter to the [facility]. I saw her for a follow-upvisit today, 06/25/22. Please see changes to care as documented in the assessment and plan. CHIEF COMPLAINT: F/u for treatment of WHO Class 3 / EOSS Stage 2 Obesity defined by initial BMI and comorbidities:HTN, Hyperlipidemia and Vitamin D deficiency. GERD. OA. This is Visit #4 [facility] visit for this 72 y.o. patient. Weight gain due to: Unclear - sits at home; notes gaining weight when she moved here from [place] to take care of her dad about 10 years ago. Multiple deaths in the family in the same time frame. Initial weight 01/18/22: 335 lbs (33.5 lbs, 10%) 03/01/2022, 335 lbs (no change) 04/20/2022, 328.5 lbs (-6.5 lbs) 06/25/2022, 315 lbs (-13.5 lbs, -20 lbs) [facility] Team: Lacey Martino RD and Pankaj Mcadams, Health Anesthesiology Technologist HPI Still going to PT, Doing much better, walking a lot better, walking without cane but brings with her. Trying to check into [employer] - works with [facility]/rehab. Will look into [employer] type program and benefits through Medicare. I still have a lot of weight to lose. Got into a plateau. Really enjoying HLP - ES - learned a lot about reading labels a tremendous help. Life is good, but notes some intermittent depression. Speaking with Pankaj, wants to try [employer] but is nervous to go alone - somewhat shy. Thinking about asking her 80 year old friend/neighborto go with her. Stress: Not stressed. Sleep: sometimes wakes up, but sleeping better than I was. Movement: See above Recall: B - poached eggs -2 - on 2 sl white toast; OJ D - chicken Drinking a lot more water AOM: Currently taking: Ozempic 0.5 mg AOM HX: Metformin XR - did not tolerate Medication C/I: Any h/o pancreatitis? NO Any h/o kidney [...] concerns Self-monitoring: Food log Pathway: [x]Individual [x]HLP []Surgery []Culinary []ACT []Monthly Lifestyle Classes Discussion 06/25/22: Doing well with lifestyle modification, advancing with movement. Will continueOzempic and titrate as tolerated. Continue engagement with HC and classes. Knows to research local gym resources or more PT - happy to write referral, script etc. [facility] PATHWAY - ADULT 01/18/2022 Obesity Medicine Activate Goals ??? movement Try gentle movement like chair yoga, t'ai chi and qigong. Health Anesthesiology Technologist will send hand-outs. Use resistance bands. Health Anesthesiology Technologist will request a set be mailed. ??? Movement Look around town, senior center, gyms, for a class to participate in, bone builders or gentle stretching. ??? Nutrition Nutrition Goals: 03/16/22 TF Write down meal ideas (statred this today) - [facility] sample meal [facility] Keep food log until you are seen by the dieititian. Record everything you eat or drink, include time eaten and any emotional changes that are significant. ??? relaxation/sleep Try some meditation/relaxation apps when I wake in the night and can't go back to sleep. Health Anesthesiology Technologist will send some to try. Tried apps but don't really like them as I like the quiet when going to sleep. [facility] 04/23 VITAL SIGNS: Vitals: 06/25/22 1010 Weight: (!) 142.9 kg (315 lb) Body mass index is 57.61 kg/m??. PHYSICAL EXAM: Gen: Alert and appropriate, [...] for: GLUCFASTING Lab Results Component Value Date [id number] 1,091 (H) 01/25/2022 25-OH Vit D Total [...] deficiency. GERD. OA. Referrals pending: Dietitian, Health Anesthesiology Technologist AOM: Ozempic 1 mg Diagnoses and all orders for this visit: Hyperlipidemia, unspecified hyperlipidemia type Prediabetes Hypertension, unspecified type Insulin resistance Class 3 severe obesity with serious comorbidity and body mass index (BMI) of 50.0 to 59.9 in adult,unspecified obesity type Other orders - semaglutide (Ozempic) 1 mg/dose (4 mg/3 mL) Pen Injector; Inject 1 mg subcutaneously once a week. No orders of the defined types were placed in this encounter. Return in about 3 months (around 09/25/2022) for In person or Zoom, With me. 3 min chart review 20 min [id number] Visit time 5 min Documentation time I [...] 07/22/2024 9:00 AM [place] [phone] Ana Ho MD [facility] [place] [address] 07/22/2024 10:00 AM EST Laboratory Appointment Lab [address] [place] [phone] 07/22/2024 11:00 AM EST Office [place] [phone] Ana Ho MD [facility] [place] [address] 09/15/2024 10:00 AM EST TH Visit (TeleHealth) [place] [phone] Candy Clifford MD [facility] DR [facility] [address] Scheduled Procedures Name Priority Associated Diagnoses Date/Ti me EGD, UPPER GI ENDOSCOPY (WRV U 2.09) Hepatic cirrhosis, unspecified hepatic cirrhosis type, unspecified whether ascites present documented as of this encounter Goals Goal Patient Goal Type Associated Problems Recent Progress Patient-Stated? Author movement Exercise On track(2021 11:16 AM EDT) No Pankaj Mcadams Note: Try gentle movement like chair yoga, t'ai chi and qigong. Health Anesthesiology Technologist will send hand-outs. Use resistance bands. Health Anesthesiology Technologist will request a set be mailed. Movement [...] opportunity to start with protein (cottage cheese, burkinan yogurt, protein smoothies, chicken or chicken salad [...] and can't go back to sleep. Health Anesthesiology Technologist will send some to try. Tried apps but don't really like them as I like the quiet when going to sleep. [facility] 04/23 documented as of this encounter Visit Diagnoses Diagnosis Hyperlipidemia, unspecified hyperlipidemia type Prediabetes Other abnormal glucose Hypertension, unspecified type Insulin resistance Dysmetabolic Syndrome X Class 3 severe obesity with serious comorbidity and body mass index (BMI) of 50.0 to 59.9 in adult, unspecified obesity type documented in this encounter Care Teams Crew Foreman Relationship Specialty Start Date End Date Justino Lucia MD PCP - General Family Medicine 10/04/21 documented as of this encounter
--- OUTSIDE RECORDS SUMMARY | 2024-07-07 13:38 | XMS_ITS | Encounter Summary ---
Author Organization [facility] [place] [address] Care Team Providers Care Scouts Name Role Phone Justino Lucia MD Primary Care Provider Reason for Referral * Consultation (Routine) - Closed Specialty Diagnoses / Procedures Referred By Marcelo tucker Referred To Contact Gastroenterology Diagnoses Hepatic cirrhosis, unspecified hepatic cirrhosis type, unspecified whether ascites present Gastric varices Justino Lucia MD [address] [place] [address] [place] [address] [facility] [place] [address] Referral ID Status Reason Start Date Expiration Date V isits Requested Visits Authorized [id number] Closed Consult, Test & Treat PCP Updated and/or Approved 11/22/2022 11/22/2023 12 12 Encounter Details Date Type Department Care Team (Late st Contact Info) Description 11/22/2022 Transcribe Orders eD Incoming Referrals [phone] Justino Lucia MD [address] [place] [address] [address] [place], [place] [id number] Hepatic cirrhosis, unspecified hepatic cirrhosis type, unspecified whether ascites present; Gastric varices Social History Tobacco Use Types Packs/Day Years [...] 07/22/2024 9:00 AM EST Appointment Ultrasound at [place] [phone] Ana Ho MD [facility] [address] 07/22/2024 10:00 AM EST Laboratory Appointment Lab [address] [phone] 07/22/2024 11:00 AM EST Office Visit Gastroenterology at [place] [phone] Ana Ho MD [facility] [address] 09/15/2024 10:00 AM EST TH Visit (TeleHealth) [place] [phone] Candy Clifford MD [facility] DR [facility] [place] [address] Scheduled Procedures Name Priority Associated Diagnoses Date/Ti me EGD, UPPER GI ENDOSCOPY (WRV U 2.09) Hepatic cirrhosis, unspecified hepatic cirrhosis type, unspecified whether ascites present Scheduled Referrals Name Type Priority Associated Diagnoses Order Schedule Referral to Gastroenterology Outpatient Referral Routine Hepatic cirrhosis, unspecified hepatic cirrhosis type, unspecified whether ascites present Gastric varices Ordered: 11/22/2022 documented as of this encounter Goals Goal Patient Goal Type Associated Problems Recent Progress Patient-Stated? Author movement Exercise On track(2021 11:16 AM EDT) Pankaj Russ Note: Try gentle movement like chair yoga, t'ai chi and qigong. Health Tree Deadener will send hand-outs. Use resistance bands. Health Tree Deadener will request a set be mailed. Movement [...] opportunity to start with protein (cottage cheese, croatian yogurt, protein smoothies, chicken or chicken salad [...] ideas in the USPS [facility] Keep food log until you are seen by the dieititian. Record everything you eat or drink, include time eaten and any emotional changes that are significant. relaxation/sleep Lifestyle No Pankaj Mcadams Note: Try some meditation/relaxation apps when I wake in the night and can't go back to sleep. Health Tree Deadener will send some to try. Tried apps but don't really like them as I like the quiet when going to sleep. [facility] 04/23 documented as of this encounter Visit Diagnoses Diagnosis Hepatic cirrhosis, unspecified hepatic cirrhosis type, unspecified whether ascites present Gastric varices Varices of other sites documented in this encounter Care Teams Scouts Relationship Specialty Start Date End Date Justino Lucia MD PCP - General Family Medicine 10/04/21 documented as of this encounter
--- OUTSIDE RECORDS SUMMARY | 2024-07-07 13:38 | XMS_ITS | Encounter Summary ---
Author Organization [facility] [place] [address] Care Team Providers Care Buckle Sorter Name Role Phone Justino Lucia MD Primary Care Provider [phone] Encounter Details Date Type Department Care Team (Latest Contact Info) Description 06/21/2022 11:00 AM EDT TH Visit (TeleHealth) Weight and Wellness at [facility] [address] [place] [address] Pankaj Mcadams Class 3 severe obesity due to excess calories with serious comorbidity and body mass index (BMI) of 60.0 to 69.9 in adult Social History Tobacco Use Types Packs/Day Years [...] this encounter Patient Instructions * Patient Instructions* Pankaj Mcadams - 06/21/2022 11:00 AM EDT It was good to talk with you Telma. You are going to woke on getting more movement by walking, looking into gym membership nd asking friend's mother if she is interested in going to a bone builders class with you. I look forward to hearing how this goes! Be well, Pankaj Mcadams Health Medicine Teacher documented in this encounter Progress Notes * Pankaj Mcadams - 06/21/2022 11:00 AM EDT Telma Raúl Richter is here today at the request of Dr. Clifford for lifestyle coaching for weight control and overall health. Review specific goals if any from provider Goals ??? movement Try gentle movement like chair yoga, t'ai chi and qigong. Health Medicine Teacher will send hand-outs. Use resistance bands. Health Medicine Teacher will request a set be mailed. ??? [...] and can't go back to sleep. Health Medicine Teacher will send some to try. Tried apps but don't really like them as I like the quiet when going to sleep. [facility] 04/23 Exercise Still doing PT, looking into options for gym memberships, will ask friend's mother is she is interested in going to bone builders class with me, working on walking more and taking stairs Sleep Not discussed Stress Always looking for positive ways to manage stress when needed Self-monitoring What are you doing now? If no personal accountability process, what can you add? [x]Food log: [] daily [x] intermittent []Weigh-ins: [] daily [] weekly [x]Exercise log [x]Gratitude journal []Other: Future follow-up with health football coach will address identified areas of concern: [x] Exercise []Sleep [x]Stress [x]Accountability []Food Behaviors [x]Self-compassion Below are guidelines for optimal health that will help you, OVER TIME, to achieve. We do not expectyou to adopt everything all at once or make huge leaps. We don't even expect that you will achieve them all because nobody is perfect! Nutrition: Whole food, quality diet, more plants. (See the back page of your Welcome Book). This matty general recommendation for all patients. Your dietitian and provider will help make more specificrecommendations for you if appropriate. Avoid drinking your calories in the form of fruit juice, soda pop or other sweetened beverages. Choose water. Activity: to maintain weight loss evidence supports 360-420 minutes per week (60min daily). Each week, 1 hour of this time should be divided into 2 or 3 sessions of resistance (weight) training. The rest would be cardio. We do not know the threshold for non-structured activity, but if you are taking about 10,000 steps daily, you may be meeting this goal for cardiac activity. You can build your activity level slowly and methodically. Your Weight&Wellness team will help you develop a plan that works for you. Sleep: 7-8 hours of restful sleep per night with minimal or no interruptions. If this is not happening, talk to your provider about how we can help. Self-monitoring: most people benefit from some form of accountability. This can be: food tracking- either in an rosanna or on paper, monitoring weight daily or monthly, exercise tracking. Pick something to track. Stress management: managing stress comes in many different forms from meditation to exercise to simply increasing mindfulness throughout the day. Your health football coach is well-equipped to guide you to find something to look forward to everyday. Eating behaviors: many people benefit from restricting the hours in which they eat. You can choose an eating window of 8-12 hours to start. Make a pact with yourself that you will not take in anything with caloric content outside this window. Your licensed psychologist may make further recommendations documented in this encounter Plan of Treatment Upcoming Encounters Date Type Department Care Team (Late st Contact Info) Description 07/22/2024 9:00 AM EST [place] [phone] Ana Ho MD [facility] [place] [address] 07/22/2024 10:00 AM EST Laboratory Appointment Lab [address] [place] [address] 07/22/2024 11:00 AM EST Office [place] [phone] Ana Ho MD [facility] [place] [address] 09/15/2024 10:00 AM EST TH Visit (TeleHealth) [place] [phone] Candy Clifford MD [facility] [address] [facility] [address] Scheduled Procedures Name Priority Associated Diagnoses Date/Ti me EGD, UPPER GI ENDOSCOPY (WRV U 2.09) Hepatic cirrhosis, unspecified hepatic cirrhosis type, unspecified whether ascites present documented as of this encounter Goals Goal Patient Goal Type Associated Problems Recent Progress Patient-Stated? Author movement Exercise On track(2021 11:16 AM EDT) No Pankaj Mcadams Note: Try gentle movement like chair yoga, t'ai chi and qigong. Health Medicine Teacher will send hand-outs. Use resistance bands. Health Medicine Teacher will request a set be mailed. [...] opportunity to start with protein (cottage cheese, uzbek yogurt, protein smoothies, chicken or chicken salad [...] for sample meal ideas in the [facility] Keep food log until you are seen by the dieititian. Record everything you eat or drink, include time eaten and any emotional changes that are significant. relaxation/sleep Lifestyle No Pankaj Mcadams Note: Try some meditation/relaxation apps when I wake in the night and can't go back to sleep. Health Medicine Teacher will send some to try. Tried apps but don't really like them as I like the quiet when going to sleep. [facility] 04/23 documented as of this encounter Visit Diagnoses Diagnosis Class 3 severe obesity due to excess calories with serious comorbidity and body mass index (BMI) of 60.0 to 69.9 in adult documented in this encounter Care Teams Buckle Sorter Relationship Specialty Start Date End Date Justino Lucia MD PCP - General Family Medicine 10/04/21 documented as of this encounter
--- OUTSIDE RECORDS SUMMARY | 2024-07-07 13:38 | XMS_ITS | Encounter Summary ---
Author Organization [facility] [place] [address] Care Team Providers Care Die Equipment Operator Name Role Phone Justino Lucia MD Primary Care Provider Reason for Visit * Reason Onset Date Comments Medication Refill 09/25/2022 Encounter Details Date Type Department Care Team (Late st Contact Info) Description 09/25/2022 Refill [place] [phone] Claudia Marshall, [facility] Social History Tobacco Use Types Packs/Day Years [...] 07/22/2024 9:00 AM [place] [phone] Ana Ho MD [facility] [place] [address] 07/22/2024 10:00 AM EST Laboratory Appointment Lab [address] [place] [address] 07/22/2024 11:00 AM EST Office [place] [address] Ana Ho MD [facility] [address] 09/15/2024 10:00 AM EST TH Visit (TeleHealth) [place] [phone] Candy Clifford MD [facility] DR [facility] [place] [address] Scheduled Procedures Name Priority Associated Diagnoses Date/Ti me EGD, UPPER GI ENDOSCOPY (WRV U 2.09) Hepatic cirrhosis, unspecified hepatic cirrhosis type, unspecified whether ascites present documented as of this encounter Goals Goal Patient Goal Type Associated Problems Recent Progress Patient-Stated? Author movement Exercise On track(2021 11:16 AM EDT) No Pankaj Mcadams Note: Try gentle movement like chair yoga, t'ai chi and qigong. Health Administrative Office Manager will send hand-outs. Use resistance bands. Health Administrative Office Manager will request a set be mailed. [...] and can't go back to sleep. Health Administrative Office Manager will send some to try. Tried apps but don't really like them as I like the quiet when going to sleep. [facility] 04/23 documented as of this encounter Visit Diagnoses Not on filedocumented in this encounter Care Teams Die Equipment Operator Relationship Specialty Start Date End Date Justino Lucia MD PCP - General Family Medicine 10/04/21 documented as of this encounter
--- OUTSIDE RECORDS SUMMARY | 2024-07-07 13:38 | XMS_ITS | Encounter Summary ---
Author Organization [facility] [place] [address] Care Team Providers Care Baseball Inspector And Repairer Name Role Phone Justino Lucia MD Primary Care Provider [phone] Encounter Details Date Type Department Care Team (Latest Contact Info) Description 12/05/2022 Travel Social History Tobacco Use Types Packs/Day [...] 07/22/2024 9:00 AM EST Appointment [place] [phone] Ana Ho MD [facility] [place] [address] 07/22/2024 10:00 AM EST Laboratory Appointment Lab [address] [place] [phone] 07/22/2024 11:00 AM EST Office Visit [place] [phone] Ana Ho MD [facility] [place] [address] 09/15/2024 10:00 AM EST TH Visit (TeleHealth) Weight and Wellness at [facility] [place] [address] Candy Clifford MD [facility] DR [facility] [address] Scheduled Procedures Name Priority Associated Diagnoses Date/Ti me EGD, UPPER GI ENDOSCOPY (WRV U 2.09) Hepatic cirrhosis, unspecified hepatic cirrhosis type, unspecified whether ascites present documented as of this encounter Goals Goal Patient Goal Type Associated Problems Recent Progress Patient-Stated? Author movement Exercise On track(2021 11:16 AM EDT) No Pankaj Mcadams Note: Try gentle movement like chair yoga, t'ai chi and qigong. Health Tailor Helper will send hand-outs. Use resistance bands. Health Tailor Helper will request a set be mailed. Movement [...] opportunity to start with protein (cottage cheese, swazi yogurt, protein smoothies, chicken or chicken salad [...] sample meal ideas in the USPS [facility] Keep food log until you are seen by the dieititian. Record everything you eat or drink, include time eaten and any emotional changes that are significant. relaxation/sleep Lifestyle Pankaj Russ Note: Try some meditation/relaxation apps when I wake in the night and can't go back to sleep. Health Tailor Helper will send some to try. Tried apps but don't really like them as I like the quiet when going to sleep. [facility] 04/23 documented as of this encounter Visit Diagnoses Not on filedocumented in this encounter Care Teams Baseball Inspector And Repairer Relationship Specialty Start Date End Date Justino Lucia MD PCP - General Family Medicine 10/04/21 documented as of this encounter
--- OUTSIDE RECORDS SUMMARY | 2024-07-07 13:38 | XMS_ITS | Encounter Summary ---
Author Organization [facility] [place] [address] Care Team Prov[address] Care Road Supervisor Of Engines Name Role Phone Justino Lucia MD Primary Care Provider [phone] Reason for Visit * Auth/Cert Specialty Diagnoses / Procedures Referred By Contchristy t Referred To Contact Diagnoses 1) cirrhosis with h/o gastric varices in 2018 (Dr. Ramon), overdue for screening EGD; 2) due for colonoscopy with h/o polyps in 2017 Procedures PRO UPPER GI ENDOSCOPY, DIAGNOSTIC PRO COLONOSCOPY, DIAGNOSTIC EGD, UPPER GI ENDOSCOPY COLONOSCOPY, DIAGNOSTIC Leo Rojas MD [facility] [place] [address] RUST Referral ID Status Reason Start Date Expiration Date Visits Re quested Visits Authorized [id number] 1 1 Encounter Details Date Type Department Care Team (Late st Contact Info) Description 06/05/2022 11:00 AM EDT - 06/05/2022 12:00 PM EDT Surgery Gastroenterology at [facility] [place] [address] Leo Rojas MD [facility] [place] [address] EGD, UPPER GI ENDOSCOPY (WRVU 2.09) Social [...] Sign Reading Time Taken Comments Blood Pressure 95/52 06/05/2022 12:00 PM EDT Pulse 91 06/05/2022 9:48 AM EDT Temperature 36.5 ??C (97.7 ??F) 06/05/2022 9:48 AM ED T Respiratory Rate 18 06/05/2022 11:50 AM EDT Oxygen Saturation 93% 06/05/2022 12:00 PM EDT Inhaled Oxygen Concentration - - Weight 145.2 kg (320 lb) 06/05/2022 9:48 AM EDT Height 157.5 cm (5' 2) 06/05/2022 9:48 AM EDT Body Mass Index 58.53 06/05/2022 9:48 AM EDT documented in this encounter Discharge Instructions * Discharge Instructions* Ophelia Mcmahon RN - 06/05/2022 11:31 AM EDT Upper GI Endoscopy: What to Expect at Home Your Recovery You will be able to go home after your doctor or nurse checks to make sure you are not having any problems. You may have to stay overnight if you had treatment during the test. You may have a sore throat fora day or two after the test. This care sheet gives you a general idea about what to expect after the test. How can you care for yourself at home? Activity Rest when you feel tired. You can do your normal activities when it feels okay to do so. Diet Follow your doctor's directions for eating. Unless your doctor has told you not to, drink plenty of fluids. This helps to replace the fluids that were lost during the prep. Do not drink alcohol. Medicines Your doctor will tell you if and when you can restart your medicines. He or she will also give you instructions about taking any new medicines. If you take blood thinners, such as warfarin (Coumadin), clopidogrel (Plavix), or aspirin, be sure to talk to your doctor. He or she will tell you if and when to start taking those medicines again. Make sure that you understand exactly what your doctor wants you to do. If polyps were removed or a biopsy was done during the test, your doctor may tell you not to take aspirin or other anti-inflammatory medicines for a few days. These include ibuprofen (Advil, Motrin) and naproxen (Aleve). If you have a sore throat the day after the procedure, use an pfjq-lrt-rizegwe spray to numb your throat. Sucking on throat lozenges and gargling with warm salt water may also help relieve your symptoms. Other instructions For your safety, do not drive or operate machinery until the medicine wears off and you can think clearly. Your doctor may tell you not to drive or operate machinery until the day after your test. Do not sign legal documents or make major decisions until the medicine wears off and you can think clearly. The anesthesia can make it hard for you to fully understand what you are agreeing to. Additional Information for Sedation Patients For patients who received sedation: You may have received medications before and/or during your procedure which effects your judgement and reaction time. Do not drive, operate machinery, drink alcoholic beverages or make important decisions for 24 hours. Be careful on stairs as you may be unsteady on your feet. You may eat a regular diet as tolerated. Do not smoke if you are alone. IV site: Slight redness or tenderness is normal, you can use a warm compress if you would like. If tenderness and/or redness increase or if foul drainage occurs, please contact your Doctor. Please call [phone] before 8pm Mon-Fri with problems, questions or concerns. If you call after 8pm or on weekends, call the Hospital at [phone] and ask to speak to the Architectural Engineering Teacher remediation bioanalytics consultant and the head insulation board saw operator will contact that person for you. When should you call for help? Call [phone] anytime you think you may need emergency care. For example, call if: You passed out (lost consciousness). You pass maroon or bloody stools. You have trouble breathing. Call your doctor now or seek immediate medical care if: You have pain that does not get better after you take pain medicine. You are sick to your stomach or cannot drink fluids. You have new or worse belly pain. You have blood in your stools. You have a fever. You cannot pass stools or gas. Watch closely for changes in your health, and be sure to contact your doctor if you have any problems. Where can you learn more? [facility] View your After Visit Summary and more online at [email or web address] If you would like to provide feedback about your hospital experience, please call the Office of Patient and Family Relations at . If you have received this After Visit Summary in error, please immediately return it in person to the department, or notify the [facility] Privacy Office by calling toll free at between the hours of 8AM and 5PM to arrange for our retrieval of the documents at no cost to you. Content Version: 12.2 ?? 8993-5833 [email or web address]. Care instructions adapted under license by [facility]. If you have questions about a medical condition or this instruction, always ask your healthcare professional. [employer] disclaims any warranty or liability for your use of this information. Colonoscopy: What to Expect at Home Your Recovery Your doctor will talk to you about when you will need your next colonoscopy. Your doctor can help you decide how often you need to be checked. This will depend on the results of your test and your risk for colorectal cancer. After the test, you may be bloated or have gas pains. You may need to pass gas. If a biopsy was done or a polyp was removed, you may have streaks of blood in your stool (feces) for a few days. Problems such as heavy rectal bleeding may not occur until several weeks after the test. This isn't common. But it can happen after polyps are removed. This care sheet gives you a general idea about how long it will take for you to recover. But each person recovers at a different pace. Follow the steps below to get better as quickly as possible. How can you care for yourself at home? Activity Rest when you feel tired. You can do your normal activities when it feels okay to do so. Diet Follow your doctor's directions for eating. Unless your doctor has told you not to, drink plenty of fluids. This helps to replace the fluids that were lost during the colon prep. Do not drink alcohol. Medicines Your doctor will tell you if and when you can restart your medicines. He or she will also give you instructions about taking any new medicines. If you take blood thinners, such as warfarin (Coumadin), clopidogrel (Plavix), or aspirin, be sure to talk to your doctor. He or she will tell you if and when to start taking those medicines again. Make sure that you understand exactly what your doctor wants you to do. If polyps were removed or a biopsy was done during the test, your doctor may tell you not to take aspirin or other anti-inflammatory medicines for a few days. These include ibuprofen (Advil, Motrin) and naproxen (Aleve). Other instructions For your safety, do not drive or operate machinery until the medicine wears off and you can think clearly. Your doctor may tell you not to drive or operate machinery until the day after your test. Do not sign legal documents or make major decisions until the medicine wears off and you can think clearly. The anesthesia can make it hard for you to fully understand what you are agreeing to. Additional Information for Sedation Patients For patients who received sedation: You may have received medications before and/or during your procedure which effects your judgement and reaction time. Do not drive, operate machinery, drink alcoholic beverages or make important decisions for 24 hours. Be careful on stairs as you may be unsteady on your feet. You may eat a regular diet as tolerated. Do not smoke if you are alone. IV site: Slight redness or tenderness is normal, you can use a warm compress if you would like. If tenderness and/or redness increase or if foul drainage occurs, please contact your Doctor. Please call [phone] before 8pm Mon-Fri with problems, questions or concerns. If you call after 8pm or on weekends, call the Hospital at [phone] and ask to speak to the Architectural Engineering Teacher remediation bioanalytics consultant and the head insulation board saw operator will contact that person for you. When should you call for help? Call [phone] anytime you think you may need emergency care. For example, call if: You passed out (lost consciousness). You pass maroon or bloody stools. You have trouble breathing. Call your doctor now or seek immediate medical care if: You have pain that does not get better after you take pain medicine. You are sick to your stomach or cannot drink fluids. You have new or worse belly pain. You have blood in your stools. You have a fever. You cannot pass stools or gas. Watch closely for changes in your health, and be sure to contact your doctor if you have any problems. Where can you learn more? [facility] View your After Visit Summary and more online at [email or web address] If you would like to provide feedback about your hospital experience, please call the Office of Patient and Family Relations at . If you have received this After Visit Summary in error, please immediately return it in person to the department, or notify the [facility] Privacy Office by calling toll free at between the hours of 8AM and 5PM to arrange for our retrieval of the documents at no cost to you. Content Version: 12.2 ?? [id number] [employer]. Care instructions adapted under license by [facility]. If you have questions about a medical condition or this instruction, always ask your healthcare professional. [employer] disclaims any warranty or liability for your use of this information. documented in this encounter Medications at Time [...] as needed for Wheezing. Use with spacer metoprolol succinate XL (Toprol-XL) 25 mg Tablet Sustained Release 24 hr Take 25 mg by mouth 2 times daily. 05/23/2022 04/17/2023 lisinopriL (Zestril) 5 mg Tablet Take 5 mg by mouth nightly. 05/01/2022 09/25/2022 semaglutide (Ozempic) 0.25 mg or 0.5 mg(2 mg/1.5 mL) Pen Injector Inject 0.5 mg subcutaneously once a week. 1.5 mL 3 04/20/2022 06/25/2022 lisinopriL (Zestril) 10 mg Tablet Take 5 mg by mouth daily. 11/25/2021 06/22/2022 spironolactone (Aldactone) 25 mg Tablet Take 25 mg by mouth daily. 09/17/2021 06/18/2023 Garlic 1,000 mg Capsule Take 1 capsule by mouth daily. 06/18/2023 documented as of this encounter Progress Notes * Ophelia Mcmahon RN - 06/05/2022 12:38 PM EDT The patient has met discharge criteria per policy. Patient's ride paged to the discharge lounge. The After Visit Summary (AVS) and accompanying hand-outs have been reviewed with the patient, including: diet, activity, reportable signs and symptoms, medications, and follow-up. The patient verbalizes understanding at this time, opportunity for clarification provided. All belongings returned to the patient in the same condition as they arrived. Patient discharged via wheelchair accompanied by family. documented in this encounter H&P Notes * Leo Rojas MD - 06/05/2022 10:08 AM EDT Gastroenterology and Hepatology Pre-Procedure History and Physical Exam Procedure: EGD: Colonoscopy: Indication: variceal surveillance, colon polyp surveillance Patient Active Problem List Diagnosis Code ??? 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 Frequent PVCs I49.3 ??? Edema of lower extremity R60.0 ??? Epistaxis R04.0 ??? Anxiety F41.9 ??? Depression F32.A ??? Anemia D64.9 ??? Osteopenia M85.80 ??? PSVT (paroxysmal supraventricular tachycardia) I47.1 ??? Cirrhosis K74.60 ??? History of hepatitis C Z86.19 ??? Asthma J45.909 ??? Hypertension I10 ??? Class 3 severe obesity due to excess calories with serious comorbidity and body mass index (BMI) of 60.0 to 69.9 in adult E66.01, Z68.44 ??? History of alcohol abuse F10.11 ??? Hyperlipidemia E78.5 ??? History of colon polyps Z86.010 ??? Osteoarthritis of hip M16.9 ??? History of shoulder replacement Z96.619 ??? Portal hypertension K76.6 ??? Prediabetes R73.03 ??? Insulin resistance E88.81 ??? NAFLD (nonalcoholic fatty liver disease) K76.0 EXAM: HEENT: Airway examined, oropharynx clear Mallampati Score: II (soft palate, uvula, fauces visible) LUNGS: Clear to auscultation HEART: Regular rate and rhythm, normal S1, S2 ABDOMEN: Normal bowel sounds, soft, non tender, non distended, A/P Proceed with the planned endoscopic procedure. ASA 3 - Patient with moderate systemic disease with functional limitations Sedation Plan: anesthesia Risks and benefits of the procedure explained to the patient. Consent signed. documented in this encounter Plan of Treatment Upcoming Encounters Date Type Department Care Team (Late st Contact Info) Description 07/22/2024 9:00 AM EST [place] [phone] Ana Ho MD [facility] [place] [address] 07/22/2024 10:00 AM EST Laboratory Appointment Lab [address] [place] [phone] 07/22/2024 11:00 AM EST Office [place] [phone] Ana Ho MD [facility] [place] [address] 09/15/2024 10:00 AM EST TH Visit (TeleHealth) Weight and Wellness at [facility] [place] [id number] Candy Clifford MD [facility] [address] [place] [address] Scheduled Procedures Name Priority Associated Diagnoses Date/Ti me EGD, UPPER GI ENDOSCOPY (WRV U 2.09) Hepatic cirrhosis, unspecified hepatic cirrhosis type, unspecified whether ascites present documented as of this encounter Goals Goal Patient Goal Type Associated Problems Recent Progress Patient-Stated? Author movement Exercise On track(2021 11:16 AM EDT) No Pankaj Mcadams Note: Try gentle movement like chair yoga, t'ai chi and qigong. Health Registered Physical Therapist will send hand-outs. Use resistance bands. Health Registered Physical Therapist will request a set be mailed. [...] opportunity to start with protein (cottage cheese, irish yogurt, protein smoothies, chicken or chicken salad [...] for sample meal ideas in the [facility] Keep food log until you are seen by the dieititian. Record everything you eat or drink, include time eaten and any emotional changes that are significant. relaxation/sleep Lifestyle No Pankaj Mcadams Note: Try some meditation/relaxation apps when I wake in the night and can't go back to sleep. Health Registered Physical Therapist will send some to try. Tried apps but don't really like them as I like the quiet when going to sleep. [facility] 04/23 documented as of this encounter Procedures Procedure Name Priority Date/Time Associated Diagnosis Comments SPECIMEN TO PATHOLOGY Routine 06/05/2022 11:15 AM EDT SURGICAL PATHOLOGY REPORT Routine 06/05/2022 11:10 AM EDT UPPER GI ENDOSCOPY Routine 06/05/2022 10 :39 AM EDT COLONOSCOPY Routine 06/05/2022 10:38 AM EDT Colonoscopy, Lorenzo García, Snare ([id number]) 06/05/2022 10:37 AM EDT Hepatic cirrhosis, unspecified hepatic cirrhosis type, unspecified whether ascites present History of colon polyps Screening for colon cancer Upper GI Endoscopy, Diagnostic ([id number]) 06/05/2022 10:37 AM EDT Hepatic cirrhosis, unspecified hepatic cirrhosis type, unspecified whether ascites present History of colon polyps Screening for colon cancer documented in this encounter Results * Specimen to Pathology (06/05/2022 11:15 AM EDT) AP Specimen 06/05/2022 11:1 5 AM EDT 06/05/2022 11:15 AM EDT [facility] LABORATORY - 06/05/2022 11:15 AM EDT Specimen requisition ordered. ??Separate Pathology report to follow Leo Rojas MD PATHOLOGY/CYTOLOGY O RDHOMA Performing Organization Address [facility]/ZIP Co de Phone Number [facility] [place] [address] * Surgical Pathology Report (06/05/2022 11:10 AM EDT) Final Diagnosis [id number] ? Location: 4T; EA08; A The signing pathologist has (i) examined the relevant preparation(s) for the specimen(s) and (ii) rendered or confirmed the diagnosis(es). . ?Surgical Pathology DIAGNOSIS A - Transverse colon ?? diminutive polyp, resection: - ??Fragments of tubular adenoma. Electronically signed by: ?Hina GRACE PhD, Era Verified: ??06/14/2022 9:47 ?? Pathologist Performed at: ??-[facility] Dept. of Pathology, [place], [place] SPECIMEN(S) SUBMITTED A - Transverse colon ?? diminutive polyp, resection (1) CLINICAL INFORMATION 72-year-old female with history of polyps, surveillance colonoscopy SPECIMEN PROCESSING A - Labeled/Fixative : TC, formalin. Quantity/Size: Three, averaging 0.6 cm. Tissue Description: Soft, pink, polypoid tissues. Sections/Process ing: Submitted en toto ??in 1 cassette labeled A1. ??sns 06/14/2022 9:47 AM EDT [facility] GI Biopsy 06/05/2022 11:1 0 AM EDT 06/05/2022 11:10 AM EDT Leo Rojas MD PATHOLOGY/CYTOLOGY O NATHANIEL Performing Organization Address [facility] Co de Phone Number [facility] [place] [address] * UPPER GI ENDOSCOPY (06/05/2022 10:39 AM EDT) UPPER GI ENDOSCOPY [facility] Endoscopy ___ Procedure Date: 06/05/2022 10:39 AM ? Patient Name: Telma Richter ? Date of : 1950 ? Age: 72 ? Order #: [id number] ? Instrument Name: [id number] ? ___ Procedure: ? Upper GI endoscopy Indications: ? Suspected gastric varices Providers: ? Tracey Patel Jarnot, Lakisha Mi ? Matthew Referring MD: ?Justino Lucia Medicines: ? Monitored Anesthesia Care Complications: ? No immediate complications. ___ Procedure: ? Pre-Anesthesia Assessment: ? - Prior [...] the mouth, and ? advanced to the second part of ? duodenum The upper GI endoscopy was ? accomplished without difficulty. ? The patient tolerated the procedure ? well. ? Findings: ? The examined esophagus was normal. ? There is no endoscopic evidence of varices in the ? entire esophagus. ? The Z-line was found 40 cm from the incisors. ? Three 4 mm sessile polyps were found in the gastric ? fundus. ? Type 2 gastroesophageal varices (GOV2, esophageal ? varices which extend along the fundus) with no ? bleeding were found in the gastric fundus. There were ? no stigmata of recent bleeding. They were small in ? largest diameter. ? The exam of the stomach was otherwise normal. ? The examined duodenum was normal. ? Moderate Sedation: ? Not applicable - See Anesthesia documentation Impression: ?- Type 2 gastroesophageal varices ? (GOV2, esophageal varices which ? extend along the fundus), without ? bleeding. ? - Three benign appearing gastric ? polyps overlying area of gastric ? varices, not biopsied per ASGE ? guideline and also due to proximity ? to varices. No follow-up needed ? specific to this incidental finding. Recommendation: ?- Perform a colonoscopy today. ? Attending Participation: ? I personally performed the entire procedure. ? Leo Rojas 06/05/2022 10:55:50 AM Number of Addenda: 0 Note Initiated On: 06/05/2022 10:39 AM PROVATION 06/05/2022 10:3 9 AM EDT Justino Lucia MD GENERAL SURGICAL ORD ERABLES PROVATION * COLONOSCOPY (06/05/2022 10:38 AM EDT) COLONOSCOPY [facility] Endoscopy Procedure Date: 06/05/2022 10:38 AM ? Patient Name: Telma Richter ? Date of : 1950 ? Age: 72 ? Order #: [id number] ? Instrument Name: [id number] ? Procedure: ? Colonoscopy Indications: ? High risk colon cancer ? surveillance: Personal history of ? colonic polyps Providers: ? Leo Rojas, Tracey Kumar, Lakisha Mi ? Matthew Referring MD: ?Justino Deng: ? Monitored Anesthesia Care Complications: ? No [...] preparation was evaluated ? using the BBPS (Buhl Bowel ? Preparation Scale) with scores of: [...] hepatic cirrhosis type, unspecified whether ascites present History of colon polyps Personal history of colonic polyps Screening for colon cancer Special screening for malignant neoplasms, colon documented in this encounter Administered Medications Inactive Administered Medications - up to 3 most recent administrations Medication Order MAR Action Action Date Dose Rate Site lactated ringers infusion 100 mL/hr, Intravenous, CONTINUOUS, Starting on Sat06/05/22 at 1015, Until Sat06/05/22 at 1233, Endoscopy (Day of Procedure) Restarted 06/05/2022 11:17 AM EDT New Bag 06/05/2022 10:19 AM EDT 100 mL/hr 100 mL/hr documented in this encounter Active and Recently Administered Medications Times are shown in EDT. Continuous Medication Order 06/03/2022 06/04/2022 06/05/2022 lactated ringers infusion (CANCELED) 100 mL/hr, Intravenous, CONTINUOUS, Starting on Sat06/05/22 at 1015, Until Sat06/05/22 at 1233, Endoscopy (Day of Procedure) 1019 (New Bag - Prov ider: Lali Zapata RN)1116 (Paused - Provider: Dung Hester CRNA - Comment: Switch to gravity)1117 (Restarted - Provider: Dung Hester CRNA) documented in this encounter Care Teams Road Supervisor Of Engines Relationship Specialty Start Date End Date Justino Lucia MD PCP - General Family Medicine 10/04/21 documented as of this encounter
--- OUTSIDE RECORDS SUMMARY | 2024-07-07 13:38 | XMS_ITS | Encounter Summary ---
Author Organization [facility] Address [facility] [place] [address] Care Team Providers Care Coffee Attendant Name Role Phone Justino Lucia MD Primary Care Provider [phone] Encounter Details Date Type Department Care Team (Latest Contact Info) Description 01/01/2023 7:47 AM EDT - 01/01/2023 11:59 PM EDT Hospital [place] [address] Rea Sierra MD [facility] [place] [address] Hepatic cirrhosis, unspecified hepatic cirrhosis type, unspecified [...] needed for Wheezing. Use with spacer semaglutide 2 mg/dose (8 mg/3 mL) Pen InjectorIndications:In sulin resistance,Prediabetes ,Hyperlipidemia, unspecified hyperlipidemia type,NAFLD (nonalcoholic fatty liver disease) Inject 2 mg subcutaneously once a week. 3 mL 3 12/05/2022 03/31/2023 metoprolol succinate XL (Toprol-XL) 25 mg Tablet Sustained Release 24 hr Take 25 mg by mouth 2 times daily. 05/23/2022 04/17/2023 spironolactone (Aldactone) 25 mg Tablet Take 25 mg by mouth daily. 09/17/2021 06/18/2023 Garlic 1,000 mg Capsule Take 1 capsule by mouth daily. 06/18/2023 documented as of this encounter Plan of Treatment Upcoming Encounters Date Type Department Care Team (Late st Contact Info) Description 07/22/2024 9:00 AM [place] [phone] Ana Ho MD [facility] [place] [address] 07/22/2024 10:00 AM EST Laboratory Appointment Lab [address] [place] [phone] 07/22/2024 11:00 AM EST Office [place] [phone] Ana Ho MD [facility] [place] [address] 09/15/2024 10:00 AM EST TH Visit (TeleHealth) Weight and Wellness at [facility] [place] [address] Candy Clifford MD [facility] [place] [address] Scheduled Procedures Name Priority Associated Diagnoses Date/Ti me EGD, UPPER GI ENDOSCOPY (WRV U 2.09) Hepatic cirrhosis, unspecified hepatic cirrhosis type, unspecified whether ascites present documented as of this encounter Goals Goal Patient Goal Type Associated Problems Recent Progress Patient-Stated? Author movement Exercise On track(2021 11:16 AM EDT) No Pankaj Mcadams Note: Try gentle movement like chair yoga, t'ai chi and qigong. Health Fire Investigation Manager will send hand-outs. Use resistance bands. Health Fire Investigation Manager will request a set be mailed. [...] [facility] until you are seen by the dieititian. Record everything you eat or drink, include time eaten and any emotional changes that are significant. relaxation/sleep Lifestyle Pankaj Russ Note: Try some meditation/relaxation apps when I wake in the night and can't go back to sleep. Health Fire Investigation Manager will send some to try. Tried apps but don't really like them as I like the quiet when going to sleep. [facility] 04/23 documented as of this encounter Procedures Procedure Name Priority Date/Time Associated Diagnosis Comments US ABDOMEN LIMITED HEPATOLOGY PROTOCOL Routine 01/01/2023 8:15 AM EDT Hepatic cirrhosis, unspecified hepatic cirrhosis type, unspecified whether ascites present documented in this encounter Results * US Abdomen Limited Hepatology Protocol (01/01/2023 8:15 AM EDT) Anatomical Region Laterality Modality Abdomen Ultrasound 01/01/2023 8:14 AM EDT Impressions 01/01/2023 9:18 AM EDT 1. ??Coarse liver parenchyma with capsular nodularity, consistent with known cirrhosis. No sonographically evident hepatic mass. 2. ??Trace perihepatic ascites. No splenomegaly. 3. ??Status post cholecystectomy. No biliary ductal dilatation. I have personally reviewed the image(s) and the resident's interpretation and agree with the findings, Tequila Gomes MD at 01/01/2023 9:08 AM Thank you for letting us participate in the care of this patient. If you are a health care provider and have any questions regarding this report, please contact the number above. For patients who have questions, please contact the health healthcare science specialist that requested your imaging first. ?Tequila Gomes, [facility] Superintendent Overhead Distribution Electronically Signed Final Report ?? 01/01/2023 09:17 am Narrative 01/01/2023 9:18 AM EDT Abdominal ? (Signed Final 01/01/2023 09:17 am) PATIENT INFO: ID #: ? [id number] ?: ??[birth year] (72 yrs)(F) Name: ? SHERRON Olsen ROBER ?Visit Date: 01/01/2023 08:14 am PERFORMED BY: Attending: ?Mireya GRACE, Tequila Longoria Performed By: ? Rupal Banks RDMS Referred By: ?REA AHNR Location: ? [place] SERVICE(S) PROVIDED: [facility] - Hepatology Protocol - Abdominal ?[id number] Limited Survey Single Organ or Quadrant - [id number] INDICATIONS: CASAREZ/HCV/ETOH cirrhosis, screen for HCC, known splenorenal shunt, eval for organomegaly COMPARISON: CT abdomen 05/14/22 ------ LIVER: ------ Right Lobe Length: ?? 14.7 ?? cm Echogenicity/Echotexture: ?? Coarse parenchyma with capsular ? nodularity Portal Veins: ?Main PV hepatopetal where interrogated Comment: ?No focal lesion seen. GALLBLADDER: Comment: ?Surgically absent BILIARY TRACT: Intrahepatic Ducts: ?? Normal Extrahepatic Ducts: ?? Normal where seen post ? cholecystectomy, similar to comparison ? CT Common Duct Size: ? 6.8 ? mm ------- SPLEEN: ------- Size (cm) ?L: ??10.1 ?AP: ??3.8 ? TV: ??9.5 Vol (ml): ?190.9 Comment: ?Normal size and appearance. ---- IVC: ---- Normal in caliber where visualized. FLUID COLLECTIONS: 4 quadrant evaluation for ascites performed. ??Trace perihepatic ascites noted. Procedure Note Tequila Gomes MD - 01/01/2023 Abdominal (Signed Final 01/01/2023 09:17 am) PATIENT INFO: ID #: [id number] : 52 (72 yrs)(F) Name: SHERRON RICHTER Visit Date: 01/01/2023 08:14 am PERFORMED BY: Attending: Tequila Gomes MD Performed By: Rupal Banks RDMS Referred By: REA SIERRA Location: [place] SERVICE(S) PROVIDED: [facility] - Hepatology Protocol - Abdominal [id number] Limited Survey Single Organ or Quadrant - [id number] INDICATIONS: CASAREZ/HCV/ETOH cirrhosis, screen for HCC, known splenorenal shunt, eval for organomegaly COMPARISON: CT abdomen 05/14/22 ------ LIVER: ------ Right Lobe Length: 14.7 cm Echogenicity/Echotexture: Coarse parenchyma with capsular nodularity Portal Veins: Main PV hepatopetal where interrogated Comment: No focal lesion seen. GALLBLADDER: Comment: Surgically absent BILIARY TRACT: Intrahepatic Ducts: Normal Extrahepatic Ducts: Normal where seen post cholecystectomy, similar to comparison CT Common Duct Size: 6.8 mm ------- SPLEEN: ------- Size (cm) L: 10.1 AP: 3.8 TV: 9.5 Vol (ml): 190.9 Comment: Normal size and appearance. ---- IVC: ---- Normal in caliber where visualized. FLUID COLLECTIONS: 4 quadrant evaluation for ascites performed. Trace perihepatic ascites noted. IMPRESSION 1. Coarse liver parenchyma with capsular nodularity, consistent with known cirrhosis. No sonographically evident hepatic mass. 2. Trace perihepatic ascites. No splenomegaly. 3. Status post cholecystectomy. No biliary ductal dilatation. I have personally reviewed the image(s) and the resident's interpretation and agree with the findings, Tequila Gomes MD at 01/01/2023 9:08 AM Thank you for letting us participate in the care of this patient. If you are a health care provider and have any questions regarding this report, please contact the number above. For patients who have questions, please contact the health healthcare science specialist that requested your imaging first. Tequila Gomes, E Superintendent Overhead Distribution Electronically Signed Final Report 01/01/2023 09:17 am Rea Sierra MD IMG US GEN ORDERABLE S documented in this encounter Visit Diagnoses Diagnosis Hepatic cirrhosis, unspecified hepatic cirrhosis type, unspecified whether ascites present documented in this encounter Care Teams Coffee Attendant Relationship Specialty Start Date End Date Justino Lucia MD PCP - General Family Medicine 10/04/21 documented as of this encounter
--- OUTSIDE RECORDS SUMMARY | 2024-07-07 13:38 | XMS_ITS | Encounter Summary ---
Author Organization [facility] [place] [address] Care Team Providers Care Instructional Technology Coordinator Name Role Phone Justino Lucia MD Primary Care Provider [phone] Encounter Details Date Type Department Care Team (Late st Contact Info) Description 07/05/2022 12:00 PM EDT Notes Only Weight and Wellness at [facility] [address] [place] [phone] Social History Tobacco Use Types Packs/Day Years [...] 07/22/2024 9:00 AM [place] [phone] Ana Ho MD [facility] [place] [address] 07/22/2024 10:00 AM EST Laboratory Appointment Lab [address] [place] [phone] 07/22/2024 11:00 AM EST Office [place] [address] Ana Ho MD [facility] GASTROENTEROLOGY [place], [place] [id number] 09/15/2024 10:00 AM EST TH Visit (TeleHealth) [place] [address] Candy Clifford MD [facility] [address] Scheduled Procedures Name Priority Associated [...] chair yoga, t'ai chi and qigong. Health Shell Maker Lockstitch will send hand-outs. Use resistance bands. Health Shell Maker Lockstitch will request a set be mailed. Movement [...] opportunity to start with protein (cottage cheese, omani yogurt, protein smoothies, chicken or chicken salad [...] and can't go back to sleep. Health Shell Maker Lockstitch will send some to try. Tried apps but don't really like them as I like the quiet when going to sleep. [facility] 04/23 documented as of this encounter Visit Diagnoses Not on filedocumented in this encounter Care Teams Instructional Technology Coordinator Relationship Specialty Start Date End Date Justino Lucia MD PCP - General Family Medicine 10/04/21 documented as of this encounter
--- OUTSIDE RECORDS SUMMARY | 2024-07-07 13:38 | XMS_ITS | Encounter Summary ---
Author Organization [facility] [place] [address] Care Team Providers Care Trim And Burr Operator Name Role Phone Justino Lucia MD Primary Care Provider [phone] Encounter Details Date Type Department Care Team (Late st Contact Info) Description 06/06/2022 12:00 PM EDT Notes Only Weight and Wellness at [facility] [address] [place] [phone] Social History Tobacco Use Types Packs/Day Years [...] 07/22/2024 9:00 AM [place] [phone] Ana Ho MD [facility] [place] [address] 07/22/2024 10:00 AM EST Laboratory Appointment Lab [address] [place] [phone] 07/22/2024 11:00 AM EST Office [place] [address] Ana Ho MD [facility] [place]OLOGY [place], [place] [phone] 09/15/2024 10:00 AM EST TH Visit (TeleHealth) [place] [address] Candy Clifford MD [facility] [address] [facility] [address] Scheduled Procedures Name Priority Associated [...] chair yoga, t'ai chi and qigong. Health Hawk Missile System Crewmember will send hand-outs. Use resistance bands. Health Hawk Missile System Crewmember will request a set be mailed. Movement [...] opportunity to start with protein (cottage cheese, cayman islander yogurt, protein smoothies, chicken or chicken salad [...] for sample meal ideas in the USPS [facility] Keep food log until you are seen by the dieititian. Record everything you eat or drink, include time eaten and any emotional changes that are significant. relaxation/sleep Lifestyle No Pankaj Mcadams Note: Try some meditation/relaxation apps when I wake in the night and can't go back to sleep. Health Hawk Missile System Crewmember will send some to try. Tried apps but don't really like them as I like the quiet when going to sleep. [facility] 04/23 documented as of this encounter Visit Diagnoses Not on filedocumented in this encounter Care Teams Trim And Burr Operator Relationship Specialty Start Date End Date Justino Lucia MD PCP - General Family Medicine 10/04/21 documented as of this encounter
--- OUTSIDE RECORDS SUMMARY | 2024-07-07 13:38 | XMS_ITS | Encounter Summary ---
Author Organization [facility] [place] [address] Care Team Providers Care Hydro Plant Site Manager Name Role Phone Justino Lucia MD Primary Care Provider [phone] Encounter Details Date Type Department Care Team (Late st Contact Info) Description 07/12/2022 12:00 PM EST Notes Only Weight and Wellness at [facility] [address] [place] [phone] Social History Tobacco Use Types Packs/Day Years [...] 07/22/2024 9:00 AM [place] [phone] Ana Ho MD [facility] [place] [address] 07/22/2024 10:00 AM EST Laboratory Appointment Lab [address] [place] [phone] 07/22/2024 11:00 AM EST Office [place] [phone] Ana Ho MD [facility] [place] [address] 09/15/2024 10:00 AM EST TH Visit (TeleHealth) [place] [address] Candy Clifford MD [facility] [place] [address] Scheduled Procedures Name Priority Associated Diagnoses Date/Ti me EGD, UPPER GI ENDOSCOPY (WRV U 2.09) Hepatic cirrhosis, unspecified hepatic cirrhosis type, unspecified whether ascites present documented as of this encounter Goals Goal Patient Goal Type Associated Problems Recent Progress Patient-Stated? Author movement Exercise On track(2021 11:16 AM EDT) No Pankaj Mcadams Note: Try gentle movement like chair yoga, t'ai chi and qigong. Health Analysis Analyst will send hand-outs. Use resistance bands. Health Analysis Analyst will request a set be mailed. [...] and can't go back to sleep. Health Analysis Analyst will send some to try. Tried apps but don't really like them as I like the quiet when going to sleep. [facility] 04/23 documented as of this encounter Visit Diagnoses Not on filedocumented in this encounter Care Teams Hydro Plant Site Manager Relationship Specialty Start Date End Date Justino Lucia MD PCP - General Family Medicine 10/04/21 documented as of this encounter
--- OUTSIDE RECORDS SUMMARY | 2024-07-07 13:38 | XMS_ITS | Encounter Summary ---
Author Organization [facility] Address [facility] [place] [address] Care Team Providers Care Commercial Horticulture Instructor Name Role Phone Justino Lucia MD Primary Care Provider [phone] Reason for Visit * Consultation (Routine) - Closed Specialty Diagnoses / Procedures Referred By Marcelo tucker Referred To Contact Weight and Wellness Diagnoses Class 3 severe obesity with serious comorbidity and body mass index (BMI) of 50.0 to 59.9 in adult, unspecified obesity type ACT Group Candy Clifford MD [facility] [address] [facility] [address] [facility] [place] [address] Referral ID Status Reason Start Date Expiration Date V isits Requested Visits Authorized [id number] Closed Consult, Test & Treat 12/05/2022 12/05/2023 1 1 Encounter Details Date Type Department Care Team (Latest Contact Info) Description 12/10/2022 2:00 PM EDT TH Visit (TeleHealth) [place] [address] Kay Tao, PhD [facility] [address] [facility] [place] [address] Class 3 severe obesity with serious comorbidity [...] Progress Notes * Kay Tao, PhD - 12/10/2022 2:00 PM EDT TAKE ACTION! TO PROMOTE YOUR HEALTH GROUP PROGRESS NOTE Introductory Session Time Spent: 120 minutes Session 0 Number of participants: 15 Co-Leaders: none This visit was conducted via telehealth. Telma is located at home in [place] SUBJECTIVE: Chief Complaint: Telma Richter is a 72 y.o. female who was referred for group health-behavior intervention to enhance she engagement in obesity management OBJECTIVE: Interventions: ?? Introduced and discussed the treatment model (i.e., relationships between thoughts, emotions/feelings, physical sensations, and behavior as it relates to obesity management ?? Introduced and discussed models of binge and emotional eating driven by thoughts and emotions ?? Introduced and discussed toscano concepts (e.g., Control what you can, accept what you can???t) and skill categories the group will emphasize to support enhanced engagement in obesity management (values-driven action, mindful decision making, and willingness). ?? Introduced concept of pattern smashing and assigned practice of pattern smashing for homework.Pts also provided a reading on Habits to read for homework. ASSESSMENT: Diagnosis: Obesity Pertinent Mental Status Exam: WNL Patient's verbal/interpersonal exchange with other participants: appropriate Telma reported that she lives in a home with many people and that they are not on the same health journey than she is. This presents different challenges as Telma is working on improving her health. For instance, Telma reported that she relies on her daughter to food cooking machine operator in the evening and at times her daughter prepares meals that are not in line with Tlema's health goals. PLAN: Telma Richter has accepted participation in the Take [employer] Group. Assigned Homework: Read the Habits article and complete a pattern smashing activity documented in this encounter Plan of Treatment Upcoming Encounters Date Type Department Care Team (Late st Contact Info) Description 07/22/2024 9:00 AM [place] [phone] Ana Ho MD [facility] [place] [address] 07/22/2024 10:00 AM EST Laboratory Appointment Lab [address] [place] [phone] 07/22/2024 11:00 AM EST Office [place] [phone] Ana Ho MD [facility] [place] [address] 09/15/2024 10:00 AM EST TH Visit (TeleHealth) [place] [phone] Candy Clifford MD [facility] [address] Scheduled Procedures Name Priority Associated Diagnoses Date/Ti me EGD, UPPER GI ENDOSCOPY (WRV U 2.09) Hepatic cirrhosis, unspecified hepatic cirrhosis type, unspecified whether ascites present Scheduled Referrals Name Type Priority Associated Diagnoses Orde r Schedule Amb Referral to [facility] Psych Evaluation Outpatient Referral Routine Class 3 [...] chair yoga, t'ai chi and qigong. Health Executive Meeting Manager will send hand-outs. Use resistance bands. Health Executive Meeting Manager will request a set be mailed. [...] opportunity to start with protein (cottage cheese, sinhala yogurt, protein smoothies, chicken or chicken salad [...] for sample meal ideas in the USPS [facility] Keep food log until you are seen by the dieititian. Record everything you eat or drink, include time eaten and any emotional changes that are significant. relaxation/sleep Lifestyle No Pankaj Mcadams Note: Try some meditation/relaxation apps when I wake in the night and can't go back to sleep. Health Executive Meeting Manager will send some to try. Tried apps but don't really like them as I like the quiet when going to sleep. [facility] 04/23 documented as of this encounter Visit Diagnoses Diagnosis Class 3 severe obesity with serious comorbidity and body mass index (BMI) of 50.0 to 59.9 in adult, unspecified obesity type documented in this encounter Care Teams Commercial Horticulture Instructor Relationship Specialty Start Date End Date Justino Lucia MD PCP - General Family Medicine 10/04/21 documented as of this encounter
--- OUTSIDE RECORDS SUMMARY | 2024-07-07 13:38 | XMS_ITS | Encounter Summary ---
Author Organization [facility] [place] [address] Care Team Providers Care Pattern Illustrator Name Role Phone Justino Lucia MD Primary Care Provider [phone] Reason for Visit * Auth/Cert Specialty Diagnoses / Procedures Referred By Contac t Referred To Contact Diagnoses 1) cirrhosis with h/o gastric varices in 2018 (Dr. Ramon), overdue for screening EGD; 2) due for colonoscopy with h/o polyps in 2017 Procedures PRO UPPER GI ENDOSCOPY, DIAGNOSTIC PRO COLONOSCOPY, DIAGNOSTIC EGD, UPPER GI ENDOSCOPY COLONOSCOPY, DIAGNOSTIC Leo Rojas MD [facility] [place] [address] [facility] Referral ID Status Reason Start Date Expiration Date Visits Re quested Visits Authorized [id number] 1 1 Encounter Details Date Type Department Care Team (Late st Contact Info) Description 06/05/2022 10:40 AM EDT Anesthesia Event [place] [address] Markos Velazquez MD [facility] AN[place] [address] Anesthesia Record Procedure Summary Procedure Name Responsible Anesthesiologist Anesthesia Start Time Anesthesia Stop Time EGD, UPPER GI ENDOSCOPY (WRVU 2.09) (Trunk) Markos Velazquez MD 06/05/22 1040 06/05/22 1122 Events Date Time Event Comment 06/05/2022 1010 1040 AN Verify 1040 Start 1040 An Start Data 1043 An Induction 1045 Anesthesia Ready 1117 an stop data 1121 Recovery or ICU Handoff Dione ent care was transferred to the destination unit staff after review of the patient's medical history, current anesthetic/surgical status and plan, according to the Provider Handoff Checklist. 1122 Stop Meds Name Total Propofol 60 mg Propofol INF 566.28 mg Dexmedetomidine 12 mcg PHENYLephrine 240 mcg lactated ringers infusion 500 mL * Agents Name O2 Auxiliary Flowmeter 1 * Blood No blood administrations on file. Lines, Drains, and Airways Type Details Placement Removal (RETIRED) Peripheral IV Line - Single Lumen 06/05/22; 1019; metacarpal vein (top of hand), right; [id number] catheter system; 22 gauge; no longer indicated, catheter/device intact; 06/05/22; 1231 06/05/22 1019 by Lali Zapata RN 06/05/22 1231 by Ophelia Mcmahon RN documented in this encounter Social History [...] OR Notes * Anesthesia Postprocedure Evaluation - Markos Velazquez MD - 06/06/2022 6:41 AM EDT Department of Anesthesiology Post-procedure Note Patient: Telma Richter Procedure Summary Date: 06/05/22 Room / Location: [facility] 5 / [facility] Anesthesia Start: 1040 Anesthesia Stop: 1122 Procedures: EGD, UPPER GI ENDOSCOPY (N/A Trunk) COLONOSCOPY, POLYPECTOMY, REMOVAL LESION BY SNARE (WRVU 4.67) (N/A Trunk) Diagnosis: Hepatic cirrhosis, unspecified hepatic cirrhosis type, unspecified whether ascites present History of colon polyps Screening for colon cancer (1) cirrhosis with h/o gastric varices in 2018 (Dr. Ramon), overdue for screening EGD; 2) due for colonoscopy with h/o polyps in 2017) Surgeons: Leo Rojas MD Responsible Provider: Markos Velazquez MD Anesthesia Type: MAC ASA Status: 3 All Anesthesia Providers: Anesthesiologist: Markos Velazquez MD ENTOMOLOGY TEACHER: Dung Hester CRNA Vitals Value Taken Time BP 102/70 06/05/22 1220 Temp Pulse Resp 18 06/05/22 1220 SpO2 94 % 06/05/22 1221 Pain Level 3 06/05/22 1220 Vitals shown include unvalidated device data. Patient Location: PACU/[facility] Level of Consciousness: Conscious but Sleepy Pain Management: Satisfactory Analgesia PONV: None Cardiovascular Status: Hemodynamically Stable Respiratory Status: Stable Respiratory Status Postoperative Fluid Status: Intravascular EUvolemia Possible Anesthetic Complications: NONE apparent at time of evaluation Final Primary Anesthesia Type: MAC (The anesthetic type performed was the same as planned.) Comments: * Anesthesia Preprocedure Evaluation - Markos Velazquez MD - 06/04/2022 3:29 PM EDT Pre-Anesthesia Evaluation for: Telma Richter a 72 y.o. female. Procedure(s): EGD, UPPER GI ENDOSCOPY COLONOSCOPY, DIAGNOSTIC Patient Active Problem List Diagnosis Date Noted ??? NAFLD (nonalcoholic fatty liver disease) 05/14/2022 ??? Insulin resistance 03/04/2022 ??? History of alcohol abuse 12/14/2021 ??? Hyperlipidemia 12/14/2021 ??? History of colon polyps 12/14/2021 ??? Osteoarthritis of hip 12/14/2021 ??? History of shoulder replacement 12/14/2021 ??? Portal hypertension 12/14/2021 ??? Prediabetes 12/14/2021 ??? Class 3 severe obesity due to excess calories with serious comorbidity and body mass index (BMI) of 60.0 to 69.9 in adult 02/18/2018 ??? Frequent PVCs 05/21/2017 [...] History: Procedure Laterality Date ??? CARDIAC CATHERIZATION Social History Tobacco Use ??? Smoking status: Former Smoker Packs/day: 3.00 Years: 42.00 Pack years: 126.00 Types: Cigarettes ??? Smokeless tobacco: Never Used Substance Use Topics ??? Alcohol use: No Social History Substance and Sexual Activity Drug Use Yes ??? Types: Marijuana Comment: Q to help her sleep No Known Allergies Medications: MAR and/or home medications have been reviewed. Physical Exam: Preprocedure Vitals Current as of 06/04/22 1529 No BP, pulse, respiration, SpO2, or temperature recorded. Height: Weight: BMI: IBW: Airway Assessment: Mallampati: II TM distance: >3 FB Neck ROM: full Cardiovascular Assessment: (+) murmur and peripheral edema system normal Pulmonary Assessment: (-) rhonchi and decreased breath sounds pulmonary exam normal Dental Assessment: Misc Assessment: Last Filed Perioperative Cognitive Screening None Anesthesia Plan: ASA 3 MAC, with a(n) intravenous induction 72 yr old F pmhx cirrhosis, morbid obesity, HTN, asthma, pSVT, non obstructing CAD based on 2016 cath, 2016 ECHO with PASP 40-45 otherwise unremarkable presenting for endoscopy NPO appropriate, denies GERD, <4 mets, ROS negative except as above. No anest records Available labs and imaging reviewed, unremarkable ECHO with normal biventricular function, mild aortic sclerosis. Planning mac. D/w patient LE edema and she reports her functional status and edema have both been improving recently with improved medications compliance. Region - Other Informed Consent: Anesthetic plan and risks discussed with patient. Use of blood products discussed with patient who consented to blood products. Plan discussed with ENTOMOLOGY TEACHER. Anesthesia Screening documented in this encounter Plan of Treatment Upcoming Encounters Date Type Department Care Team (Late st Contact Info) Description 07/22/2024 9:00 AM EST Appointment Ultrasound at [place] [phone] Ana Ho MD [facility] [place] [address] 07/22/2024 10:00 AM EST Laboratory Appointment Lab [address] [place] [phone] 07/22/2024 11:00 AM EST Office Visit Gastroenterology at [place] [phone] Ana Ho MD [facility] [place] [address] 09/15/2024 10:00 AM EST TH Visit (TeleHealth) [place] [address] Candy Clifford MD [facility] DR [facility] [address] Scheduled Procedures Name Priority Associated Diagnoses Date/Ti me EGD, UPPER GI ENDOSCOPY (WRV U 2.09) Hepatic cirrhosis, unspecified hepatic cirrhosis type, unspecified whether ascites present documented as of this encounter Goals Goal Patient Goal Type Associated Problems Recent Progress Patient-Stated? Author movement Exercise On track(2021 11:16 AM EDT) No Pankaj Mcadams Note: Try gentle movement like chair yoga, t'ai chi and qigong. Health Veterinary Surgery Technician will send hand-outs. Use resistance bands. Health Veterinary Surgery Technician will request a set be mailed. [...] opportunity to start with protein (cottage cheese, guinean yogurt, protein smoothies, chicken or chicken salad [...] [facility] Keep food log until you are seen by the dieititian. Record everything you eat or drink, include time eaten and any emotional changes that are significant. relaxation/sleep Lifestyle No Pankaj Mcadams Note: Try some meditation/relaxation apps when I wake in the night and can't go back to sleep. Health Veterinary Surgery Technician will send some to try. Tried [...] bolus injection (Anesthsia) Intravenous, PRN, Starting on Sat06/05/22 at 1043, Until Sat06/05/22 at 1122, Anesthesia Intra-op, Routine Given 06/05/2022 10:43 AM EDT 12 mcg lactated ringers infusion 100 mL/hr, Intravenous, CONTINUOUS, Starting on Sat06/05/22 at 1015, Until Sat06/05/22 at 1233, Endoscopy (Day of Procedure) Restarted 06/05/2022 11:17 AM EDT New Bag 06/05/2022 10:19 AM EDT 100 mL/hr 100 mL/hr PHENYLephrine in NS (PF) (LARRY-SYNEPHRINE) 0.8 mg/10 mL (80 mcg/mL) multi-dose injection Syrg Intravenous, PRN, Starting on Sat06/05/22 at 1055, Until Sat06/05/22 at 1122, Anesthesia Intra-op, Routine Given 06/05/2022 11:03 AM EDT 160 mcg Given 06/05/2022 10:55 AM EDT 80 mcg propofoL (Diprivan) (10 mg/mL) infusion Intravenous, CONTINUOUS PRN, Starting on Sat06/05/22 at 1043, Until Sat06/05/22 at 1122, Anesthesia Intra-op, Routine Rate/Dose Change 06/05/2022 11:07 AM EDT 100 mcg/kg/min 87.12 mL/hr Rate/Dose Change 06/05/2022 11:03 AM EDT 125 mcg/kg/min 10 8.9 mL/hr New Bag 06/05/2022 10:43 AM EDT 150 mcg/kg/min 130.68 m L/hr propofoL (Diprivan) 10 mg/mL bolus injection (Anesthesia) Intravenous, PRN, Starting on Sat06/05/22 at 1043, Until Sat06/05/22 at 1122, Anesthesia Intra-op Given 06/05/2022 10:43 AM EDT 60 mg documented in this encounter Care Teams Pattern Illustrator Relationship Specialty Start Date End Date Justino Lucia MD PCP - General Family Medicine 10/04/21 documented as of this encounter
--- OUTSIDE RECORDS SUMMARY | 2024-07-07 13:38 | XMS_ITS | Encounter Summary ---
Author Organization [place] [address] Care Team Providers Care Interface Engineer Name Role Phone Justino Lucia MD Primary Care Provider [phone] Encounter Details Date Type Department Care Team (Latest Contact Info) Description 2022 9:00 AM EDT TH Visit (TeleHealth) Weight and Wellness at [facility] [address] [place] [phone] Pankaj Mcadams Class 3 severe obesity due [...] Instructions * Patient Instructions* Pankaj Mcadams - 2022 9:00 AM EDT It was good to talk with you Telma. I'm glad to hear that you are enjoying the HLP group. You're doing well with adding more movement and exercise into your day. I look forward to talking with you soon. Be well, Pankaj Mcadams Health [employer] District Law Clerk documented in this encounter Progress Notes * Pankaj Mcadams - 2022 9:00 AM EDT Telma Raúl Richter is here today at the request of lifestyle coaching for weight control and overall health. FOLLOW UP VISIT 1. Clarify/revisit BIG WHY: feel and move better 2. Assess/review Strengths: knowledge 3. Review Healthy habits guidelines for exercise, sleep, and stress- see below 4. Teach SMART goals and practice setting one(connect to BIG WHY, pillars). Review specific goals if any from provider Goals ??? movement Try gentle movement like chair yoga, t'ai chi and qigong. Health Federal District Law Clerk will send hand-outs. Use resistance bands. Health [employer] District Law Clerk will request a set be mailed. ??? Movement Look around town, senior center, gyms, for a class to participate in, bone builders or gentle stretching. ??? Nutrition Nutrition Goals: 03/16/22 TF Write down meal ideas (statred this today) - look for sample meal ideas in the [employer] [facility] Keep food log until you are seen by the dieititian. Record everything you eat or drink, include time eaten and any emotional changes that are significant. ??? relaxation/sleep Try some meditation/relaxation apps when I wake in the night and can't go back to sleep. Health [employer] District Law Clerk will send some to try. Tried apps but don't really like them as I like the quiet when going to sleep. [facility] 04/23 Exercise PT, walking more,chair yoga 3 times during the week Sleep Not discussed Stress Managing okay, enjoying P group Self-monitoring What are you doing now? If no personal accountability process, what can you add? [x]Food log: [] daily [x] intermittent []Weigh-ins: [] daily [] weekly [x]Exercise log [x]Gratitude journal []Other: Food Behaviors (optional): ozempic is helping with cravings Future follow-up with health speech coach will address identified areas of concern: [x] Exercise [x]Sleep []Stress []Accountability []Food Behaviors []Self-compassion Below are guidelines for optimal health that [...] increasing mindfulness throughout the day. Your health speech coach is well-equipped to guide you to find something to look forward to everyday. Eating behaviors: many people benefit from restricting the hours in which they eat. You can choose an eating window of 8-12 hours to start. Make a pact with yourself that you will not take in anything with caloric content outside this window. Your speeder operator may make further recommendations documented in this encounter Plan of Treatment Upcoming Encounters Date Type Department Care Team (Late st Contact Info) Description 07/22/2024 9:00 AM EST Appointment [place] [address] Ana Ho MD [facility] [place] [address] 07/22/2024 10:00 AM EST Laboratory Appointment Lab [address] [place] [phone] 07/22/2024 11:00 AM EST Office [place] [phone] Ana Ho MD [facility] [place] [place] [address] 09/15/2024 10:00 AM EST TH Visit (TeleHealth) [place] [phone] Candy Clifford MD [facility] [address] [facility] [place] [address] Scheduled Procedures Name Priority Associated [...] chair yoga, t'ai chi and qigong. Health [employer] District Law Clerk will send hand-outs. Use resistance bands. Health [employer] District Law Clerk will request a set be mailed. [...] opportunity to start with protein (cottage cheese, indian yogurt, protein smoothies, chicken or chicken salad [...] ideas in the [employer] Keep food log until you are seen by the dieititian. Record everything you eat or drink, include time eaten and any emotional changes that are significant. relaxation/sleep Lifestyle No Pankaj Mcadams Note: Try some meditation/relaxation apps when I wake in the night and can't go back to sleep. Health [employer] District Law Clerk will send some to try. Tried [...] adult documented in this encounter Care Teams Interface Engineer Relationship Specialty Start Date End Date Justino Lucia MD PCP - General Family Medicine 10/04/21 documented as of this encounter
--- OUTSIDE RECORDS SUMMARY | 2024-07-07 13:38 | XMS_ITS | Encounter Summary ---
Author Organization [facility] [place] [address] Care Team Providers Care Dope Firer Name Role Phone Justino Lucia MD Primary Care Provider [phone] Reason for Visit * Auth/Cert Specialty Diagnoses / Procedures Referred By Contchristy t Referred To Contact Diagnoses 1) cirrhosis with h/o gastric varices in 2018 (Dr. Ramon), overdue for screening EGD; 2) due for colonoscopy with h/o polyps in 2017 Procedures PRO UPPER GI ENDOSCOPY, DIAGNOSTIC PRO COLONOSCOPY, DIAGNOSTIC EGD, UPPER GI ENDOSCOPY COLONOSCOPY, DIAGNOSTIC Leo Rojas MD [facility] [place] [address] [facility] Referral ID Status Reason Start Date Expiration Date Visits Re quested Visits Authorized [id number] 1 1 Encounter Details Date Type Department Care Team (Latest Contact Info) Description 06/05/2022 9:26 AM EDT - 06/05/2022 12:39 PM EDT Hospital Encounter Gastroenterology at [facility] [place] [address] Leo Rojas MD [facility] [place] [address] Discharge Disposition: Home Social History Tobacco Use [...] Sign Reading Time Taken Comments Blood Pressure 102/70 06/05/2022 12:20 PM EDT Pulse 91 06/05/2022 9:48 AM EDT Temperature 36.5 ??C (97.7 ??F) 06/05/2022 9:48 AM ED T Respiratory Rate 18 06/05/2022 12:20 PM EDT Oxygen Saturation 94% 06/05/2022 12:20 PM EDT Inhaled Oxygen Concentration - - [...] the day after the procedure, use an taez-cco-ajccpbo spray to numb your throat. Sucking on [...] occurs, please contact your Doctor. Please call [phone] before 8pm Mon-Fri with problems, questions or concerns. If you call after 8pm or on weekends, call the Hospital at [phone] and ask to speak to the Chemical Cell Changer cash person and the numerical control machine operator will contact that person for you. When should you call for help? Call [phone] anytime you think you may need emergency [...] any problems. Where can you learn more? [facility] View your After Visit Summary and more online at [email or web address] If you would like to provide feedback about your hospital experience, please call the Office of Patient and Family Relations at . If you have received this After Visit Summary in error, please immediately return it in person to the department, or notify the [facility] Privacy Office by calling toll free at between the hours of 8AM and 5PM to arrange for our retrieval of the documents at no cost to you. Content Version: 12.2 ?? [id number] [employer]. Care instructions adapted under license by [employer]. If you have questions about a medical condition or this instruction, always ask your healthcare professional. [employer] disclaims any warranty or liability for your [...] occurs, please contact your Doctor. Please call [phone] before 8pm Mon-Fri with problems, questions or concerns. If you call after 8pm or on weekends, call the Hospital at [phone] and ask to speak to the Chemical Cell Changer cash person and the numerical control machine operator will contact that person for you. When should you call for help? Call [phone] anytime you think you may need emergency [...] any problems. Where can you learn more? [facility] View your After Visit Summary and more online at [email or web address] If you would like to provide feedback about your hospital experience, please call the Office of Patient and Family Relations at . If you have received this After Visit Summary in error, please immediately return it in person to the department, or notify the [facility] Privacy Office by calling toll free at between the hours of 8AM and 5PM to arrange for our retrieval of the documents at no cost to you. Content Version: 12.2 ?? [phone] [employer]. Care instructions adapted under license by [employer]. If you have questions about a medical condition or this instruction, always ask your healthcare professional. [employer] disclaims any warranty or liability for your [...] 07/22/2024 9:00 AM EST [place] [phone] Ana Ho MD [facility] [place] [address] 07/22/2024 10:00 AM EST Laboratory Appointment Lab [address] [place] [phone] 07/22/2024 11:00 AM EST Office [place] [phone] Ana Ho MD [facility] [address] 09/15/2024 10:00 AM EST TH Visit (TeleHealth) Weight and Wellness at [facility] [place] [address] Candy Clifford MD [facility] DR NICHOLAS [place] [address] Scheduled Procedures Name Priority Associated Diagnoses Date/Ti me EGD, UPPER GI ENDOSCOPY (WRV U 2.09) Hepatic cirrhosis, unspecified hepatic cirrhosis type, unspecified whether ascites present documented as of this encounter Goals Goal Patient Goal Type Associated Problems Recent Progress Patient-Stated? Author movement Exercise On track(2021 11:16 AM EDT) No Pankaj Mcadams Note: Try gentle movement like chair yoga, t'ai chi and qigong. Health Lead Nuclear Medicine Technologist will send hand-outs. Use resistance bands. Health Lead Nuclear Medicine Technologist will request a set be mailed. [...] opportunity to start with protein (cottage cheese, nigerien yogurt, protein smoothies, chicken or chicken salad [...] for sample meal ideas in the USPS [facility] Keep food log until you are seen by the dieititian. Record everything you eat or drink, include time eaten and any emotional changes that are significant. relaxation/sleep Lifestyle Pankaj Russ Note: Try some meditation/relaxation apps when I wake in the night and can't go back to sleep. Health Lead Nuclear Medicine Technologist will send some to try. Tried apps but don't really like them as I like the quiet when going to sleep. [facility] 04/23 documented as of this encounter Procedures Procedure Name Priority Date/Time Associated Diagnosis Comments SPECIMEN TO PATHOLOGY Routine 06/05/2022 11:15 AM EDT SURGICAL PATHOLOGY REPORT Routine 06/05/2022 11:10 AM EDT UPPER GI ENDOSCOPY Routine 06/05/2022 10 :39 AM EDT COLONOSCOPY Routine 06/05/2022 10:38 AM EDT Colonoscopy, Lorenzo García, Snare ([id number]) 06/05/2022 10:37 AM EDT Hepatic cirrhosis, unspecified hepatic cirrhosis type, unspecified whether ascites present History of colon polyps Screening for colon cancer Upper GI Endoscopy, Diagnostic ([id number]) 06/05/2022 10:37 AM EDT Hepatic cirrhosis, unspecified hepatic cirrhosis type, unspecified whether ascites present History of colon polyps Screening for colon cancer documented in this encounter Results * Specimen to Pathology (06/05/2022 11:15 AM EDT) AP Specimen 06/05/2022 11:1 5 AM EDT 06/05/2022 11:15 AM EDT Narrative [facility] - 06/05/2022 11:15 AM EDT Specimen requisition ordered. ??Separate Pathology report to follow Leo Rojas MD PATHOLOGY/CYTOLOGY O RDERABLES [facility] [place] [address] * Surgical Pathology Report (06/05/2022 11:10 AM EDT) Final Diagnosis [id number] ? Location: 4T; EA08; A The signing pathologist has (i) examined the relevant preparation(s) for the specimen(s) and (ii) rendered or confirmed the diagnosis(es). . ?Surgical Pathology DIAGNOSIS A - Transverse colon ?? diminutive polyp, resection: - ??Fragments of tubular adenoma. Electronically signed by: ?Hina GRACE PhD, Era Verified: ??06/14/2022 9:47 ?? Pathologist Performed at: ??-[facility] Dept. of Pathology, [place], [place] SPECIMEN(S) SUBMITTED A - Transverse colon ?? diminutive polyp, resection (1) CLINICAL INFORMATION 72-year-old female with history of polyps, surveillance colonoscopy SPECIMEN PROCESSING A - Labeled/Fixative : TC, formalin. Quantity/Size: Three, averaging 0.6 cm. Tissue Description: Soft, pink, polypoid tissues. Sections/Process ing: Submitted en toto ??in 1 cassette labeled A1. ??sns 06/14/2022 9:47 AM EDT [facility] GI Biopsy 06/05/2022 11:1 0 AM EDT 06/05/2022 11:10 AM EDT Leo Rojas MD PATHOLOGY/CYTOLOGY O RDERABLES [facility] [place] [address] * UPPER GI ENDOSCOPY (06/05/2022 10:39 AM EDT) UPPER GI ENDOSCOPY [facility] Endoscopy ___ Procedure Date: 06/05/2022 10:39 AM ? Patient Name: Telma Richter ? Date of : 1950 ? Age: 72 ? Order #: [id number] ? Instrument Name: [id number]- [id number] ? ___ Procedure: ? Upper GI endoscopy Indications: ? Suspected gastric varices Providers: ? Tracey Patel Rita F. ? Matthew Referring MD: ?Justino Lucia Medicines: [...] * COLONOSCOPY (06/05/2022 10:38 AM EDT) COLONOSCOPY [facility] Endoscopy Procedure Date: 06/05/2022 10:38 AM ? Patient Name: Telma Richter ? Date of : 1950 ? Age: 72 ? Order #: [id number] ? Instrument Name: [id number]- [id number] ? Procedure: ? Colonoscopy Indications: ? High [...] preparation was evaluated ? using the BBPS (Morris Bowel ? Preparation Scale) with scores of: [...] the entire procedure. ? Leo Rojas 06/05/2022 11:19:55 AM Number of Addenda: 0 [...] infusion 100 mL/hr, Intravenous, CONTINUOUS, Starting on 06/05/22 at 1015, Until e 06/05/22 at 1233, Endoscopy (Day of Procedure) Restarted 06/05/2022 11:17 AM EDT New Bag 06/05/2022 10:19 AM EDT 100 mL/hr 100 mL/hr documented in this encounter Active and Recently Administered Medications Times are shown in EDT. Continuous Medication Order 06/03/2022 06/04/2022 06/05/2022 lactated ringers infusion (CANCELED) 100 mL/hr, Intravenous, CONTINUOUS, Starting on 06/05/22 at 1015, Until e 06/05/22 at 1233, Endoscopy (Day of Procedure) 1019 (New Bag - Prov ider: Lali Zapata RN)1116 (Paused - Provider: Dung Hester CRNA - Comment: Switch to gravity)1117 (Restarted - Provider: Dung Hester CRNA) documented in this encounter Care Teams Dope Firer Relationship Specialty Start Date End Date Justino Lucia MD PCP - General Family Medicine 10/04/21 documented as of this encounter
--- OUTSIDE RECORDS SUMMARY | 2024-07-07 13:38 | XMS_ITS | Encounter Summary ---
Author Organization [facility] [place] [address] Care Team Providers Care Water Taxi Boat Mate Name Role Phone Justino Lucia MD Primary Care Provider [phone] Encounter Details Date Type Department Care Team (Latest Contact Info) Description 07/05/2022 Travel Social History Tobacco Use Types Packs/Day [...] 07/22/2024 9:00 AM EST [place] [phone] Ana Ho MD [facility] [place] [address] 07/22/2024 10:00 AM EST Laboratory Appointment Lab [address] [place] [phone] 07/22/2024 11:00 AM EST Office [place] [phone] Ana Ho MD [facility] [place] [address] 09/15/2024 10:00 AM EST TH Visit (TeleHealth) Weight and Wellness at [facility] [place] [address] Candy Clifford MD [facility] DR NICHOLAS [place] [address] Scheduled Procedures Name Priority Associated Diagnoses Date/Ti me EGD, UPPER GI ENDOSCOPY (WRV U 2.09) Hepatic cirrhosis, unspecified hepatic cirrhosis type, unspecified whether ascites present documented as of this encounter Goals Goal Patient Goal Type Associated Problems Recent Progress Patient-Stated? Author movement Exercise On track(2021 11:16 AM EDT) No Pankaj Mcadams Note: Try gentle movement like chair yoga, t'ai chi and qigong. Health Social Work Job Titles will send hand-outs. Use resistance bands. Health Social Work Job Titles will request a set be mailed. Movement [...] opportunity to start with protein (cottage cheese, sao tomean yogurt, protein smoothies, chicken or chicken salad [...] for sample meal ideas in the USPS [facility] Keep food log until you are seen by the dieititian. Record everything you eat or drink, include time eaten and any emotional changes that are significant. relaxation/sleep Lifestyle Pankaj Russ Note: Try some meditation/relaxation apps when I wake in the night and can't go back to sleep. Health Social Work Job Titles will send some to try. Tried apps but don't really like them as I like the quiet when going to sleep. [facility] 04/23 documented as of this encounter Visit Diagnoses Not on filedocumented in this encounter Care Teams Water Taxi Boat Mate Relationship Specialty Start Date End Date Justino Lucia MD PCP - General Family Medicine 10/04/21 documented as of this encounter
--- OUTSIDE RECORDS SUMMARY | 2024-07-07 13:38 | XMS_ITS | Encounter Summary ---
Author Organization [facility] [place] [address] Care Team Providers Care Green Building Materials Distributor Name Role Phone Justino Lucia MD Primary Care Provider [phone] Encounter Details Date Type Department Care Team (Late st Contact Info) Description 11/19/2022 5:30 PM EDT Notes Only [place] [phone] Social History Tobacco Use Types Packs/Day Years [...] 07/22/2024 9:00 AM EST Appointment [place] [phone] Ana Ho MD [facility] [place] [address] 07/22/2024 10:00 AM EST Laboratory Appointment Lab [address] [place] [phone] 07/22/2024 11:00 AM EST Office Visit [place] [phone] Ana Ho MD [facility] [place] [address] 09/15/2024 10:00 AM EST TH Visit (TeleHealth) [place] [address] Candy Clifford MD [facility] DR NICHOLAS PERDOMO-[place] [address] Scheduled Procedures Name Priority Associated Diagnoses Date/Ti me EGD, UPPER GI ENDOSCOPY (WRV U 2.09) Hepatic cirrhosis, unspecified hepatic cirrhosis type, unspecified whether ascites present documented as of this encounter Goals Goal Patient Goal Type Associated Problems Recent Progress Patient-Stated? Author movement Exercise On track(2021 11:16 AM EDT) No Pankaj Mcadams Note: Try gentle movement like chair yoga, t'ai chi and qigong. Health Database Programmer Analyst will send hand-outs. Use resistance bands. Health Database Programmer Analyst will request a set be mailed. [...] opportunity to start with protein (cottage cheese, brazilian yogurt, protein smoothies, chicken or chicken salad [...] for [facility] Keep food [facility] until you are seen by the dieititian. Record everything you eat or drink, include time eaten and any emotional changes that are significant. relaxation/sleep Lifestyle No Pankaj Mcadams Note: Try some meditation/relaxation apps when I wake in the night and can't go back to sleep. Health Database Programmer Analyst will send some to try. Tried apps but don't really like them as I like the quiet when going to sleep. [facility] 04/23 documented as of this encounter Visit Diagnoses Not on filedocumented in this encounter Care Teams Green Building Materials Distributor Relationship Specialty Start Date End Date Justino Lucia MD PCP - General Family Medicine 10/04/21 documented as of this encounter
--- OUTSIDE RECORDS SUMMARY | 2024-07-07 13:38 | XMS_ITS | Encounter Summary ---
Author Organization [facility] Address [facility] [place] [address] Care Team Providers Care Cellar Pumper Name Role Phone Justino Lucia MD Primary Care Provider [phone] Encounter Details Date Type Department Care Team (Latest Contact Info) Description 12/24/2022 2:00 PM EDT TH Visit (TeleHealth) [place] [address] Kay Tao, PhD [facility] DR NICHOLAS PERDOMO-[place] [address] Class 3 severe obesity with serious comorbidity [...] Progress Notes * Kay Tao, PhD - 12/24/2022 2:00 PM EDT TAKE ACTION! TO PROMOTE YOUR HEALTH GROUP PROGRESS NOTE Session #2 Time Spent: 120 minutes Session 10/10 Number of participants: 9 Co-Leaders: none SUBJECTIVE: Chief Complaint: Telma Richter is a 72 y.o. female who was referred for group health-behavior intervention to enhance she engagement in obesity management OBJECTIVE: Interventions: ??? Reviewed between session exercises and concepts from previous session ??? Completed a mindful awareness exercise: attending to the present moment ??? Discussed the behavior change issue of when values compete for attention ?? Introduced concept of moving towards values using Choice Points and Respooler vs. Short Term Mind ?? Introduced concept of high risk situations that challenge weight management efforts ASSESSMENT: Pertinent Mental Status Exam: WNL Patient's verbal/interpersonal exchange with other participants: appropriate Telma reported that it is important for her to work on her health in honor of being around longer with her family. 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 Assigned Homework: Complete high risk situation worksheet, complete long-term/short-term mind worksheet, values-based action, and complete diary card documented in this encounter Plan of Treatment Upcoming Encounters Date Type Department Care Team (Late st Contact Info) Description 07/22/2024 9:00 AM EST Appointment Ultrasound at [place] [phone] Ana Ho MD [facility] [place] [address] 07/22/2024 10:00 AM EST Laboratory Appointment Lab [address] [place] [phone] 07/22/2024 11:00 AM EST Office [place] [address] Ana Ho MD [facility] [place] [address] 09/15/2024 10:00 AM EST TH Visit (TeleHealth) [place] [phone] Candy Clifford MD [facility] [address] [address] Scheduled Procedures Name Priority Associated Diagnoses Date/Ti me EGD, UPPER GI ENDOSCOPY (WRV U 2.09) Hepatic cirrhosis, unspecified hepatic cirrhosis type, unspecified whether ascites present documented as of this encounter Goals Goal Patient Goal Type Associated Problems Recent Progress Patient-Stated? Author movement Exercise On track(2021 11:16 AM EDT) No Pankaj Mcadams Note: Try gentle movement like chair yoga, t'ai chi and qigong. Health Ride Operator will send hand-outs. Use resistance bands. Health Ride Operator will request a set be mailed. [...] for [facility] Keep food [facility] until you are seen by the dieititian. Record everything you eat or drink, include time eaten and any emotional changes that are significant. relaxation/sleep Lifestyle No Pankaj Mcadams Note: Try some meditation/relaxation apps when I wake in the night and can't go back to sleep. Health Ride Operator will send some to try. Tried apps but don't really like them as I like the quiet when going to sleep. [facility] 04/23 documented as of this encounter Visit Diagnoses Diagnosis Class 3 severe obesity with serious comorbidity and body mass index (BMI) of 50.0 to 59.9 in adult, unspecified obesity type documented in this encounter Care Teams Cellar Pumper Relationship Specialty Start Date End Date Justino Lucia MD PCP - General Family Medicine 10/04/21 documented as of this encounter
--- OUTSIDE RECORDS SUMMARY | 2024-07-07 13:39 | XMS_ITS | Encounter Summary ---
Author Organization [facility] [place] [address] Care Team Providers Care Cnc Machinist Name Role Phone Aleida Alva APRN Primary Care Provider [phone] Reason for Visit * Reason Comments Skin Lesion * Consultation (Routine) - Specialty Diagnoses / Procedures Referred By Marcelo tucker Referred To Contact Dermatology Diagnoses Bullous pemphigoid Disorder of the skin and subcutaneous tissue, unspecified Bullous Pemphigoid / Skin Lesion Procedures Bullous Pemphigoid / Skin Lesion Aleida Alva APRN [address] [place] [address] [facility] [address] [place] [address] Referral ID Status Reason Start Date Expiration Date V isits Requested Visits Authorized [id number] 04/30/2017 04/30/2018 1 1 Encounter Details Date Type Department Care Team (Late st Contact Info) Description 06/06/2017 1:40 PM EDT Office Visit Dermatology at [facility] [address] [place] [address] Nati Caro MD [facility] [address] [facility] [place] [address] Post-inflammatory hyperpigmentation; Venous stasis; Dermatofibroma Social History Tobacco Use Types Packs/Day Years [...] as of this encounter Progress Notes * Nati Caro W - 06/06/2017 1:40 PM EDT Images from the original note were not included. DERMATOLOGY - NEW PATIENT NOTE Date of service: 06/06/2017 Telma Richter : 1950, 67 y.o. CC: Chief Complaint Patient presents with ??? Skin Lesion HPI: Telma Richter is referred by Aleida Alva with the following concerns: History of blisters on her arms, legs, right shoulder,right chest, and right shoulder blade. Denies ever having lesions in the mouth. Reports the lesions were very itchy when they were there. No itch anymore. Was put on a prednisone taper which cleared up the lesions. Never had anything similar in the past. No recent changes toher meds except the prednisone. Biopsy was never performed. She also has a lesion on her left powers that she has had a lengthy period of time that they would like evaluated as well. Relevant Skin History: - Skin cancer: None -No previous personal skin disease disorfer Family History: No family history of skin disease/melanoma Social History: - Retired -Cat at home Current Outpatient Prescriptions: ??? cyanocobalamin 500 mcg Tablet, Take 500 mcg by mouth daily., Disp: , Rfl: ??? triamcinolone (KENALOG) 0.1 % Cream, Apply topically 2 times daily., Disp: , Rfl: ??? ferrous sulfate 325 mg (65 mg iron) Tablet, Take 325 mg by mouth 2 times daily., Disp: , Rfl: ??? oxybutynin (DITROPAN XL) 15 mg Tablet Extended Rel 24 hr, Take 15 mg by mouth daily., Disp: , Rfl: ??? sertraline (ZOLOFT) 50 mg Tablet, Take 50 mg by mouth daily., Disp: , Rfl: ??? Garlic 1,000 mg Capsule, Take 1 capsule by mouth daily., Disp: , Rfl: ??? meTOPROLOL tartrate (LOPRESSOR) 25 mg Tablet, Take 25 mg by mouth 2 times daily., Disp: , Rfl: ??? cholecalciferol, Vitamin D3, 2,000 unit Capsule, Take by mouth., Disp: , Rfl: ??? furosemide (LASIX) 20 mg Tablet, Take 20 mg by mouth 2 times daily., Disp: , Rfl: ??? atorvastatin (LIPITOR) 20 mg Tablet, Take 1 tablet by mouth daily., Disp: 30 tablet, Rfl: 3 ??? cholecalciferol, Vitamin D3, (CHOLECALCIFEROL, VITAMIN D3,) 2,000 unit Capsule, Take by mouth.,Disp: , Rfl: ??? omeprazole (PRILOSEC) 20 mg Capsule, Delayed Release(E.C.), Take 20 mg by mouth daily., Disp: ,Rfl: ??? albuterol (VENTOLIN HFA) 90 mcg/actuation HFA Aerosol Inhaler, Inhale 2 puffs into the lungs every 4 hours as needed for Wheezing. Use with spacer, Disp: , Rfl: ??? predniSONE (DELTASONE) 20 mg Tablet, Take 20 mg by mouth. Tapering dose, Disp: , Rfl: ??? buPROPion (WELLBUTRIN XL) 150 mg Tablet Sustained Release 24 hr, Take 150 mg by mouth every morning., Disp: , Rfl: No current facility-administered medications for this visit. Facility-Administered Medications Ordered in Other Visits: ??? midazolam (PF) (VERSED) 1 mg/mL multi-dose injection, , , Once PRN, Flavio Daniels MD, 1 mgat 02/07/16 1543 ??? fentaNYL 50 mcg/mL multi-dose injection, , , Once PRN, Flavio Daniels MD, 50 mcg at 02/07/16 1543 ??? heparin (porcine) injection, , , Once PRN, Flavio Daniels MD, 8,000 Units at 02/07/16 1551 No Known Allergies Review of Systems: - General: Feels well. - Skin: No other skin concerns. -Recent diagnosis of heart valve disorder and they will be working it up Examination: - Constitutional: Patient was alert, well-appearing and in no noticeable distress. - Skin: Skin examination of the scalp, face, ears,arms, right shoulder, right chest, and right shoulder blade. Diagnosis/Skin findings/Assessment/Plan: 1. Post inflammatory hyperpigmentation scattered on the upper extremities, chest, and back- -Unable to diagnose at this time as all areas have resolved. -Recommended patient take photos if new lesions develop and call the clinic for an acute visit 2. Venous stasis: Diffuse swelling of bilateral lower legs -Recommended compression stockings 3. Dermatofibroma-Left lower leg- 2 firm brown papules with central depigmentation - Reassurance provided RTC: PRN if blisters recur Note initiated by Janel Brown LPN. I am documenting this encounter acting as the scribe for and in the presence of Nati Caro MD I performed the above scribed service and agree with the accuracy of the documentation in this encounter. Reviewed and signed by Nati Caro MD Resident in Dermatology [facility] Patient seen and evaluated with staff canine enforcement officer: Tg Parsons MD Section of Dermatology [facility] * Chele Parsons MD - 06/06/2017 1:40 PM EDT I directly supervised Dr. Nati Caro during this office visit. Dr. Caro presented the historyand physical exam to me. I then saw and examined this patient with Dr. Caro. We reviewed the history and pertinent details and I confirmed the physical findings. I agree with the details of the history and physical exam as documented in Dr. Arciniega note. CHELE PARSONS MD Staff Physician documented in this encounter Plan of Treatment Upcoming Encounters Date Type Department Care Team (Late st Contact Info) Description 07/22/2024 9:00 AM EST Appointment [place] [address] Ana Ho MD [facility] [place] [address] 07/22/2024 10:00 AM EST Laboratory Appointment Lab [address] [place] [phone] 07/22/2024 11:00 AM EST Office Visit Gastroenterology at [place] [phone] Ana Ho MD [facility] [place] [address] 09/15/2024 10:00 AM EST TH Visit (TeleHealth) Weight [place] [address] Candy Clifford MD [facility] [address] Scheduled Procedures Name Priority Associated Diagnoses Date/Ti me EGD, UPPER GI ENDOSCOPY (WRV U 2.09) Hepatic cirrhosis, unspecified hepatic cirrhosis type, unspecified whether ascites present documented as of this encounter Visit Diagnoses Diagnosis Post-inflammatory hyperpigmentation Dyschromia, unspecified Venous stasis Unspecified venous (peripheral) insufficiency Dermatofibroma Benign neoplasm of skin, site unspecified documented in this encounter Care Teams Cnc Machinist Relationship Specialty Start Date End Date Aleida Alva APRN [address] [place] [address] PCP - General Family Medicine 05/02/17 10/03/21 documented as of this encounter
--- OUTSIDE RECORDS SUMMARY | 2024-07-07 13:39 | XMS_ITS | Encounter Summary ---
Author Organization [facility] Address [facility] [place] [address] Care Team Providers Care Early Morning Babysitter Name Role Phone Justino Lucia MD Primary Care Provider [phone] Encounter Details Date Type Department Care Team (Latest Contact Info) Description 03/16/2022 9:30 AM EDT TH Visit (TeleHealth) Weight and Wellness at [facility] [address] [place] [address] Lacey Martino I, [facility] [place] [address] Class 3 severe obesity due to excess [...] - Inhaled Oxygen Concentration - - Weight 151.7 kg (334 lb 8 oz) 03/16/2022 6:23 PM EDT Height 157.5 cm (5' 2.01) 03/16/2022 6:23 PM ED T Body Mass Index 61.17 03/16/2022 6:23 PM EDT documented in this encounter Patient Instructions * Patient Instructions* Lacey Martino RD - 03/16/2022 9:30 AM EDT Goals Addressed This Visit's Progress Nutrition Nutrition Goals: 03/16/22 TF Write down meal ideas (statred this today) - look for sample meal ideas in the USPS [facility] Keep food log until you are seen by the dieititian. Record everything you eat or drink, include time eaten and any emotional changes that are significant. documented in this encounter Progress Notes * Lacey Martino RD - 03/16/2022 9:30 AM EDT Nutrition Intervention for Weight Management Initial RD visit with ERIKA Mejia 1950 Telehealth / telephone visit conducted while patient was at home at the following address: [address] [place] [address] Food Trackers: yes; Pert. Meds: Ozempic Activity: PT 3 days/wk for hip movement which is helping with walking Weight Today: Vitals 03/16/2022 Resp Height (Emirati) 62.008 Height (Metric) 157.5 cm Weight (Emirati) 334 lbs 8 oz Weight (Metric) 151.728 kg BMI (Calculated) 61.16 kg/m2 Typical Dietary Intake: B: 8 am-10 am 2 eggs and 2 slcies toast with butter OR skipped OR 1 toast with eggs and banana L: OJ smoothie with berries OR an 11 am bowl of fruit D: 5-7 pm small steak and cheese on a dinner roll OR sandwich with ham and good and tomato; baked chicken and rice pilaf OR cottage cheese and a protien bar and 5 dried apricots S: Typical Beverages: 1 cup tea and sometimes a glass of water Patient Goals from Team: Goals ??? movement Try gentle movement like chair yoga, t'ai chi and qigong. Health Membership Sales Representative will send hand-outs. Use resistance bands. Health Membership Sales Representative will request a set be mailed. ??? Nutrition Keep food log until you are seen by the dieititian. Record everything you eat or drink, include time eaten and any emotional changes that are significant. Interview: Pt feels a meal plan will help her get on a schedule so I can have a regular meal. Barriers to Change: Meal Planning Nutrition Goals: Write down meal ideas (statred this today) - look for sample meal ideas in the [facility] Monitor/Evaluate: Will follow up in 3 months Aim for 5-10% weight loss from ABW x 3-6 months from initial visit Thank you Lacey Martino MS TD LD 60 minutes were spent in visit today, including contact with patient, chart review, and documentation documented in this encounter Plan of Treatment Upcoming Encounters Date Type Department Care Team (Late st Contact Info) Description 07/22/2024 9:00 AM EST Appointment Ultrasound at [place] [phone] Ana Ho MD [facility] [place] [address] 07/22/2024 10:00 AM EST Laboratory Appointment Lab [address] [place] [address] 07/22/2024 11:00 AM EST Office Visit Gastroenterology at [place] [phone] Ana Ho MD [facility] [place] [address] 09/15/2024 10:00 AM EST TH Visit (TeleHealth) [place] [address] Candy Clifford MD [facility] DR [facility] [address] Scheduled Procedures Name Priority Associated Diagnoses Date/Ti me EGD, UPPER GI ENDOSCOPY (WRV U 2.09) Hepatic cirrhosis, unspecified hepatic cirrhosis type, unspecified whether ascites present documented as of this encounter Goals Goal Patient Goal Type Associated Problems Recent Progress Patient-Stated? Author movement Exercise On track(2021 11:16 AM EDT) Pankaj Russ Note: Try gentle movement like chair yoga, t'ai chi and qigong. Health Membership Sales Representative will send hand-outs. Use resistance bands. Health Membership Sales Representative will request a set be mailed. Nutrition Lifestyle No Candy Clifford MD Note: Nutrition Goals updated today: 12/11/22 TF 1. Focus on reaching adequate protein intake - aim for 60-80 grams (handout attached in after visit summary) 2. Consider the 3 eating events per day to be an opportunity to start with protein (cottage cheese, korean yogurt, protein smoothies, chicken or chicken [...] for [facility] meal [facility] the [facility] Keep food log until you are seen by the dieititian. Record everything you eat or drink, include time eaten and any emotional changes that are significant. relaxation/sleep Lifestyle No Pankaj Mcadams Note: Try some meditation/relaxation apps when I wake in the night and can't go back to sleep. Health Membership Sales Representative will send some to try. Tried [...] adult documented in this encounter Care Teams Early Morning Babysitter Relationship Specialty Start Date End Date Justino Lucia MD PCP - General Family Medicine 10/04/21 documented as of this encounter
--- OUTSIDE RECORDS SUMMARY | 2024-07-07 13:39 | XMS_ITS | Encounter Summary ---
Author Organization [facility] Address [facility] [place] [address] Care Team Providers Care Oil Extractor Name Role Phone Aleida Alva APRN Primary Care Provider [phone] Reason for Visit * Reason Comments Establish Care Has had mid chest pa in & across chest; has a hiatal hernia & unsure if tht is causing the pain; saw Dr. Ramon on Mon for ? vaginal or recta bleeding - he plans on do an upper endoscopyl Shortness of Breath feels most is due to her weight; has a lot of swelling in her legs * Consultation (Routine) - Closed Specialty Diagnoses / Procedures Referred By Marcelo tucker Referred To Contact Cardiology Diagnoses coronary artery disease chest tightness frequent premature ventricular beats Aleida Alva APRN [address] [place] [address] Jaswant Teresa Jr., MD [address] [place] [id number] Referral ID Status Reason Start Date Expiration Date V isits Requested Visits Authorized [id number] Closed Consult, Test & Treat Connection Center 05/09/2017 05/09/2018 1 1 Encounter Details Date Type Department Care Team (Late st Contact Info) Description 07/19/2017 1:20 PM EST Office Visit Cardiology at [address] [phone] Jaswant Teresa Jr., MD [address] [place] [address] [place] [address] Atypical angina; Hypertension, unspecified type; Edema of lower extremity; WYATT (dyspnea on exertion); Pulmonary HTN Social History Tobacco Use Types Packs/Day Years [...] Sign Reading Time Taken Comments Blood Pressure 124/70 07/19/2017 1:32 PM EST Pulse 84 07/19/2017 1:32 PM EST regul ar Temperature - - Respiratory Rate - - Oxygen Saturation - - Inhaled Oxygen Concentration - - Weight 142.9 kg (315 lb) 07/19/2017 1:32 PM EST Height 160 cm (5' 3) 07/19/2017 1:32 PM EST Body Mass Index 55.8 07/19/2017 1:32 PM EST documented in this encounter Progress Notes * Jaswant Teresa Jr., MD - 07/19/2017 1:20 PM EST Referring PCP: Aleida Alva APRN Cardiology consultation History: Telma Richter is a 67 y.o. old female seen at the request of Aleida Alva APRN for evaluation of palpitations and chest pain. She gets rare brief palpitations. There are no associated symptoms. They have not changed significantly in some time. She has had chest tightness at varying times, not re lated to exertion. It seems more related to when she has eaten and if she is bending over. She has had some dyspnea with exertion that has gotten worse over the last 4-6 weeks. It has not stopped herfrom doing her usual activity. She has had increased rectal and vaginal bleeding over the same period, undergoing workup. She may be more anemic. Her edema is manageable with furosemide but the frequent urination bothers her. No Known Allergies Current Outpatient Prescriptions Medication Sig Dispense Refill ??? MYRBETRIQ 25 mg Tablet Sustained Release 24 hr ??? cyanocobalamin 500 mcg Tablet Take 500 mcg by mouth daily. ??? triamcinolone (KENALOG) 0.1 % Cream Apply topically 2 times daily. ??? ferrous sulfate 325 mg (65 mg iron) Tablet Take 325 mg by mouth 2 times daily. ??? oxybutynin (DITROPAN XL) 15 mg Tablet Extended Rel 24 hr Take 15 mg by mouth daily. ??? Garlic 1,000 mg Capsule Take 1 capsule by mouth daily. ??? meTOPROLOL tartrate (LOPRESSOR) 25 mg Tablet Take 25 mg by mouth 2 times daily. ??? furosemide (LASIX) 20 mg Tablet Take 20 mg by mouth 2 times daily. ??? atorvastatin (LIPITOR) 20 mg Tablet Take 1 tablet by mouth daily. 30 tablet 3 ??? cholecalciferol, Vitamin D3, (CHOLECALCIFEROL, VITAMIN D3,) 2,000 unit Capsule Take 1 capsule by mouth Daily. ??? omeprazole (PRILOSEC) 20 mg Capsule, Delayed Release(E.C.) Take 20 mg by mouth daily. ??? albuterol (VENTOLIN HFA) 90 mcg/actuation HFA Aerosol Inhaler Inhale 2 puffs into the lungs every 4 hours as needed for Wheezing. Use with spacer No current facility-administered medications for this visit. Facility-Administered Medications Ordered in Other Visits Medication Dose Route Frequency Provider Last Rate Last Dose ??? midazolam (PF) (VERSED) 1 mg/mL multi-dose injection Once PRN Flavio Daniels MD 1 mg at 02/07/16 1543 ??? fentaNYL 50 mcg/mL multi-dose injection Once PRN Flavio Daniels MD 50 mcg at 02/07/16 1543 ??? heparin (porcine) injection Once PRN Flavio Daniels MD 8,000 Units at 02/07/16 1551 Patient Active Problem List Diagnosis ??? Frequent PVCs ??? SOB (shortness of breath) ??? Edema of lower extremity ??? Epistaxis ??? Anxiety ??? Depression ??? Anemia ??? Fatigue ??? Osteopenia ??? Hypoglycemia ??? PSVT (paroxysmal supraventricular tachycardia) ??? Cirrhosis ??? HCV (hepatitis C virus) ??? Asthma ??? Hypertension ??? Atypical angina EKG change and small troponin bump 02/2016 Cath- mild diffuse disease Unclear cause for troponin leak Coronary risk factors: Smoking: former Diabetes:no Hypercholesterolemia:yes Hypertension:yes Family history of premature disease: no Family History Problem (# of Occurrences) Relation (Name,Age of Onset) Alcohol Abuse (1) Brother (Rohith) Aneurysm (1) Sister (Gladys) Asthma (1) Sister (Ave) Brain Cancer (1) Brother (Ketan) Cirrhosis (1) Brother (Rohith) Depression (1) Brother (Rohith) Hypertension (1) Father Liver Cancer (1) Brother (Mushtaq) Nephrolithiasis (2) Mother, Father Substance Abuse (1) Brother (Rohith) Cardiac tests: Echo 04/2017: mild LVH EF 72%, trivial MR, mild TR, PA 40-45mmHg Social History Social History ??? Marital status: Single Spouse name: N/A ??? Number of children: N/A ??? Years of education: N/A Occupational History ??? Not on file. Social History Main Topics ??? Smoking status: Former Smoker Packs/day: 3.00 Years: 42.00 Types: Cigarettes ??? Smokeless tobacco: Never Used ??? Alcohol use No ??? Drug use: Yes Special: Marijuana Comment: QHS to help her sleep ??? Sexual activity: Not on file Other Topics Concern ??? Not on file Social History Narrative ROS: no recent weight gain, has fatigue during the day, not clear if she snores, sleep disrupted bygoing to the bathroom, GI workup for bleeding undergoing, otherwise negative except as above Physical Exam: BP 124/70 (BP Location (NBP): Right arm, Patient Position: Sitting, BP Cuff Sizes: Adult (25-34 cm)) Pulse 84 Comment: regular Ht 160 cm (5' 3) Wt (!) 142.9 kg (315 lb) BMI 55.8 kg/m2 General: WD, obese Skin: no rash HEENT: no xanthoma Neck: No JVD, HJR, or carotid abnormalities, thyroid benign Lungs: Clear Cor: RR, normal S1, S2. PMI not displaced. No murmur or gallop Abd: soft, obese Ext: Pulses preserved, equal bilaterally, trace-1+ edema, no cyanosis or clubbing Musculoskeletal: no muscle tenderness Neuro: grossly nonfocal Psych: normal affect, appropriate EKG: NSR 90, no ST/T change Lab data: None for review Assessment: 1) palpitations- adequate control on current dose of beta rafa 2) chest pain- non cardiac- likely GERD related (no obstructive CAD on recent cath) 3) mild pulmonary HTN on echo- likely due to sleep apnea given her obesity 4) WYATT- combination of obesity, anemia and pulmonary HTN 5) HTN Plan: 1) A discussion was held concerning the patient's chief complaints, the presumptive diagnosis(es) and the options for further evaluation and management. Reviewed the assessment above and the recommendations below in detail. 2) medical therapy - unchanged 3) Recommend sleep apnea workup 4) follow up PRN documented in this encounter Plan of Treatment Upcoming Encounters Date Type Department Care Team (Late st Contact Info) Description 07/22/2024 9:00 AM EST [place] [address] Ana Ho MD [facility] [address] 07/22/2024 10:00 AM EST Laboratory Appointment Lab [address] [address] 07/22/2024 11:00 AM EST Office Visit Gastroenterology at [place] [phone] Ana Ho MD [facility] [place] [address] 09/15/2024 10:00 AM EST TH Visit (TeleHealth) [place] [address] Candy Clifford MD [facility] [address] [facility] [place] [address] Scheduled Procedures Name Priority Associated Diagnoses Date/Ti me EGD, UPPER GI ENDOSCOPY (WRV U 2.09) Hepatic cirrhosis, unspecified hepatic cirrhosis type, unspecified whether ascites present documented as of this encounter Procedures Procedure Name Priority Date/Time Associated Diagnosis Comments ECG SCAN 08/01/2017 12:00 AM EST documented in this encounter Results * SCAN DOC: ECG (08/01/2017 12:00 AM EST) Narrative 08/01/2017 12:00 AM EST Ordered by an unspecified provider. Scanning Provider MEDIA MGR SCAN EXT O RDR/RSLT documented in this encounter Visit Diagnoses Diagnosis Atypical angina Other and unspecified angina pectoris Hypertension, unspecified type Edema of lower extremity Edema WYATT (dyspnea on exertion) Other dyspnea and respiratory abnormality Pulmonary HTN Other chronic pulmonary heart diseases documented in this encounter Care Teams Oil Extractor Relationship Specialty Start Date End Date Niad, Aleida Lopez, [employer] [address] [place] [address] PCP - General Family Medicine 05/02/17 10/03/21 documented as of this encounter
--- OUTSIDE RECORDS SUMMARY | 2024-07-07 13:39 | XMS_ITS | Encounter Summary ---
Author Organization [facility] [place] [address] Care Team Providers Care Metal Model Maker Name Role Phone Justino Lucia MD Primary Care Provider [phone] Encounter Details Date Type Department Care Team (Late st Contact Info) Description 05/09/2022 12:00 PM EDT Notes Only Weight and Wellness at [facility] [address] [place] [phone] Arrived Social History Tobacco Use Types Packs/Day [...] 07/22/2024 9:00 AM EST Appointment [place] [phone] Ana Ho MD [facility] [place] [address] 07/22/2024 10:00 AM EST Laboratory Appointment Lab [address] [place] [phone] 07/22/2024 11:00 AM EST Office Visit [place] [address] Ana Ho MD [facility] [address] 09/15/2024 10:00 AM EST TH Visit (TeleHealth) Weight [place] [address] Candy Clifford MD [facility] [address] [facility] [place] [address] Scheduled Procedures Name Priority Associated Diagnoses Date/Ti me EGD, UPPER GI ENDOSCOPY (WRV U 2.09) Hepatic cirrhosis, unspecified hepatic cirrhosis type, unspecified whether ascites present documented as of this encounter Goals Goal Patient Goal Type Associated Problems Recent Progress Patient-Stated? Author movement Exercise On track(2021 11:16 AM EDT) No Pankaj Mcadams Note: Try gentle movement like chair yoga, t'ai chi and qigong. Health Crushed Stone Grader will send hand-outs. Use resistance bands. Health Crushed Stone Grader will request a set be mailed. Movement [...] and can't go back to sleep. Health Crushed Stone Grader will send some to try. Tried apps but don't really like them as I like the quiet when going to sleep. [facility] 04/23 documented as of this encounter Visit Diagnoses Not on filedocumented in this encounter Care Teams Metal Model Maker Relationship Specialty Start Date End Date Justino Lucia MD PCP - General Family Medicine 10/04/21 documented as of this encounter
--- OUTSIDE RECORDS SUMMARY | 2024-07-07 13:39 | XMS_ITS | Encounter Summary ---
Author Organization [facility] [place] [address] Care Team Providers Care Wet And Dry Sugar Bin Operator Name Role Phone Justino Lucia MD Primary Care Provider [phone] Encounter Details Date Type Department Care Team (Latest Contact Info) Description 05/14/2022 8:00 AM EDT Laboratory Appointment Lab [address] [place] [phone] Cirrhosis of liver without ascites, unspecified hepatic cirrhosis type Social History Tobacco Use Types Packs/Day [...] 07/22/2024 9:00 AM EST [place] [phone] Ana Ho MD [facility] [place] [address] 07/22/2024 10:00 AM EST Laboratory Appointment Lab [address] [place] [phone] 07/22/2024 11:00 AM EST Office [place] [address] Ana Ho MD [facility] [place] [address] 09/15/2024 10:00 AM EST TH Visit (TeleHealth) [place] [phone] Candy Clifford MD [facility] [address] [facility] [place] [address] Scheduled Procedures Name Priority Associated Diagnoses Date/Ti me EGD, UPPER GI ENDOSCOPY (WRV U 2.09) Hepatic cirrhosis, unspecified hepatic cirrhosis type, unspecified whether ascites present documented as of this encounter Goals Goal Patient Goal Type Associated Problems Recent Progress Patient-Stated? Author movement Exercise On track(2021 11:16 AM EDT) No Pankaj Mcadams Note: Try gentle movement like chair yoga, t'ai chi and qigong. Health Chinese Instructor will send hand-outs. Use resistance bands. Health Chinese Instructor will request a set be mailed. Movement [...] for sample meal ideas in the [facility] Keep food log until you are seen by the dieititian. Record everything you eat or drink, include time eaten and any emotional changes that are significant. relaxation/sleep Lifestyle No Pankaj Mcadams Note: Try some meditation/relaxation apps when I wake in the night and can't go back to sleep. Health Chinese Instructor will send some to try. Tried apps but don't really like them as I like the quiet when going to sleep. [facility] 04/23 documented as of this encounter Procedures Procedure Name Priority Date/Time Associated Diagnosis Comments HEMOGRAM Routine 05/14/2022 7:58 AM EDT Cirrhosis of liver without ascites, unspecified hepatic cirrhosis type DIFFERENTIAL, AUTOMATED Routine 05/14/2022 7:58 AM EDT Cirrhosis of liver without ascites, unspecified hepatic cirrhosis type HC PROTHROMBIN TIME Routine 05/14/2022 7 :58 AM EDT Cirrhosis of liver without ascites, unspecified hepatic cirrhosis type HC CBC,PLT & AUTO DIFF Routine 7:58 AM EDT Cirrhosis of liver without ascites, unspecified hepatic cirrhosis type COMPREHENSIVE METABOLIC PANEL Routine 05/14/2022 7:58 AM EDT Cirrhosis of liver without ascites, unspecified hepatic cirrhosis type documented in this encounter Results * Differential, Automated (05/14/2022 7:58 AM EDT) Neutrophil % 65.2 % [facility] Neutrophil Absolute 4.09 1.70 - 6.10 x10(3)/[facility] Lymph % 21.3 % [facility] Lymphocytes Abs 1.3 0.9 - 3.2 x10(3)/[facility] Monocyte % 10.0 % [facility] Monocyte Abs 0.6 0.3 - 0.9 x10(3)/[facility] Eos % 3.0 % [facility] Eosinophils Abs 0.2 0.0 - 0.4 x10(3)/[facility] Basophil % 0.3 % [facility] Baso Absolute 0.0 0.0 - 0.1 x10(3)/[facility] Immature Gran % 0.20 % [facility] Comment: Immature granulocytes(IG's)percentage and absolute count will include metamyelocytes, myelocytes, and promyelocytes. Blood smears from CBCs yielding IG's will be scanned manually for concordance. If this scan disagrees with the automated IG or if promyelocytes are noted, a manual differential will be performed. Immature Gran Absolute 0.01 0.00 - 0.04 x10(3)/[facility] Blood 05/14/2022 7:58 AM EDT 05/14/2022 8:06 AM EDT Narrative Resulting Agency Comment Spec In Lab Glenn CHOWDHURY HEMATOLOGY ORDERABLE S [facility] [place] [address] * Hemogram (05/14/2022 7:58 AM EDT) White Blood Cell 6.3 4.0 - 9.5 x10(3)/[facility] Red Blood Cell 4.78 4.00 - 5.21 x10(6)/[facility] Hemoglobin 14.5 11.7 - 15.5 g/dL [facility] Hematocrit 43.0 35.7 - 45.8 % [facility] Mean Cell Volume 90.0 82.6 - 94.4 fL [facility] Mean Cell Hemoglobin 30.3 27.1 - 32.0 pg [facility] Mean Cell Hemoglobin Concentration 33.7 31.7 - 35.0 g/dL [facility] Platelet 247 145 - 357 x10(3)/[facility] RDW Standard Deviation 43.5 37.0 - 46.0 fL [facility] RDW coefficient of variation 13.2 11.5 - 14.1 % [facility] Mean Platelet Volume 10.2 7.6 - 12.9 fL [facility] NRBC% auto 0.0 % [facility] NRBC Absolute 0.000 0.000 - 0.000 x10(3)/[facility] Blood 05/14/2022 7:58 AM EDT 05/14/2022 8:06 AM EDT Narrative Resulting Agency Comment Spec In Lab Glenn CHOWDHURY HEMATOLOGY ORDERABLE S [facility] [place] [address] * Comprehensive metabolic panel (non-fasting) (05/14/2022 7:58 AM EDT) Glucose 107 65 - 199 mg/dL [facility] Comment:Diabetes: >=200 mg/d L plus symptoms Blood Urea Nitrogen 13 8 - 18 mg/dL [facility] Creatinine 0.81 0.70 - 1.20 mg/dL [facility] Sodium 140 135 - 145 mmol/L [facility] Potassium 4.0 3.5 - 5.0 mmol/L [facility] Comment: Please note: ??Patients with WBC >100,000 may have falsely elevated Potassium levels. ??For accurate Potassium quantification in these patients send serum separator tube (gold top) for subsequent determinations. ??Contact the Clinical Chemistry Laboratory if there are any questions. Chloride 104 98 - 107 mmol/L [facility] Carbon Dioxide 27 22 - 31 mmol/L [facility] Anion Gap 9 5 - 15 mmol/L [facility] Calcium 9.4 8.5 - 10.5 mg/dL [facility] Protein, Total 6.7 6.1 - 8.0 g/dL [facility] Albumin 3.9 3.2 - 5.2 g/dL [facility] Aspartate Aminotransferase 24 0 - 30 unit/L [facility] Alanine Aminotransferase 18 0 - 30 unit/L [facility] Alkaline Phosphatase 60 35 - 105 unit/L [facility] Bilirubin, Total 1.0 0.2 - 1.3 mg/dL [facility] Est Glomerular Filtration Rate 78 >=60 mL/min/1. 73 m?? [facility] Comment: This patient's estimated GFR [...] and symptoms in addition to eGFR. Blood 05/14/2022 7:58 AM EDT 05/14/2022 8:06 AM EDT Narrative Resulting Agency Comment Spec In Lab Rea Hickey MD CHEMISTRY ORDERABLES [facility] [place] [address] * (ABNORMAL) Prothrombin Time (05/14/2022 7:58 AM EDT) Prothrombin Time 13.2(H) 9.4 - 12.5 sec [facility] International Normalization Ratio 1.2 [facility] Comment: An INR <2.0 indicates [...] be appropriate depending on clinical circumstances. Blood 05/14/2022 7:58 AM EDT 05/14/2022 8:06 AM EDT Narrative Resulting Agency Comment Spec In Lab Rea Hickey MD HEMATOLOGY ORDERABLE S [facility] [place] [address] documented in this encounter Visit Diagnoses Diagnosis Cirrhosis of liver without ascites, unspecified hepatic cirrhosis type documented in this encounter Care Teams Wet And Dry Sugar Bin Operator Relationship Specialty Start Date End Date Justino Lucia MD PCP - General Family Medicine 10/04/21 documented as of this encounter
--- OUTSIDE RECORDS SUMMARY | 2024-07-07 13:39 | XMS_ITS | Encounter Summary ---
Author Organization [facility] Address [address] [facility] [place] [address] Care Team Providers Care Dairy Management Specialist Name Role Phone Justino Lucia MD Primary Care Provider [phone] Reason for Referral * Diagnostic Test (Routine) - Closed Specialty Diagnoses / Procedures Referred By Contac t Referred To Contact Radiology Diagnoses Cirrhosis of liver without ascites, unspecified hepatic cirrhosis type Procedures CT Abdomen w Contrast CT Abdomen wwo Contrast Glenn Cardoso PA [address] [place] [address] [address] [facility] [place] [address] Referral ID Status Reason Start Date Expiration Date V isits Requested Visits Authorized [id number] Closed Specialty Service Requested 02/02/2022 07/23/2022 1 1 Reason for Visit * Diagnostic Test (Routine) - Closed Specialty Diagnoses / Procedures [facility] To Contact Radiology Diagnoses Cirrhosis of liver without ascites, unspecified hepatic cirrhosis type Procedures CT Abdomen w Contrast CT Abdomen wwo Contrast Glenn Cardoso PA [address] [place] [address] [facility] [place] [address] Referral ID Status Reason Start Date Expiration Date V isits Requested Visits Authorized [id number] Closed Specialty Service Requested 02/02/2022 07/23/2022 1 1 Encounter Details Date Type Department Care Team (Latest Contact Info) Description 05/14/2022 8:08 AM EDT - 05/14/2022 11:59 PM EDT Hospital Encounter CT Scan at [facility] [address] Rea Hickey MD [facility] [place] [address] Cirrhosis of liver without ascites, unspecified hepatic cirrhosis type Discharge Disposition: Home Social History Tobacco Use [...] as needed for Wheezing. Use with spacer lisinopriL (Zestril) 5 mg Tablet Take 5 [...] 07/22/2024 9:00 AM EST [place] [phone] Ana Ho MD [facility] [place] [address] 07/22/2024 10:00 AM EST Laboratory Appointment Lab [address] [place] [phone] 07/22/2024 11:00 AM EST Office [place] [phone] Ana Ho MD [facility] [place] [address] 09/15/2024 10:00 AM EST TH Visit (TeleHealth) [place] [phone] Candy Clifford MD [facility] [address] [facility] [place] [address] Scheduled Procedures Name Priority Associated Diagnoses Date/Ti me EGD, UPPER GI ENDOSCOPY (WRV U 2.09) Hepatic cirrhosis, unspecified hepatic cirrhosis type, unspecified whether ascites present documented as of this encounter Goals Goal Patient Goal Type Associated Problems Recent Progress Patient-Stated? Author movement Exercise On track(2021 11:16 AM EDT) No Pankaj Mcadams Note: Try gentle movement like chair yoga, t'ai chi and qigong. Health Personal Injury Litigation Paralegal will send hand-outs. Use resistance bands. Health Personal Injury Litigation Paralegal will request a set be mailed. Movement Exercise On track(2021 11:16 AM EDT) No Pankaj Mcadams Note: Look around town, Only [place] [facility], gyms, for a class to participate [...] for sample meal ideas in the USPS [facility] Keep food log until you are seen by the dieititian. Record everything you eat or drink, include time eaten and any emotional changes that are significant. relaxation/sleep Lifestyle No Pankaj Mcadams Note: Try some meditation/relaxation apps when I wake in the night and can't go back to sleep. Health Personal Injury Litigation Paralegal will send some to try. Tried apps but don't really like them as I like the quiet when going to sleep. [facility] 04/23 documented as of this encounter Procedures Procedure Name Priority Date/Time Associated Diagnosis Comments CT ABDOMEN W CONTRAST Routine 05/14/2022 9:42 AM EDT Cirrhosis of liver without ascites, unspecified hepatic cirrhosis type documented in this encounter Results * CT Abdomen w Contrast (05/14/2022 9:42 AM EDT) Anatomical Region Laterality Modality Abdomen Computed Tomogra phy 05/14/2022 9:58 AM EDT Impressions 05/14/2022 11:32 AM EDT 1. ??Cirrhosis. No liver lesions. 2. ??Gastric varices and splenorenal shunt. 3. ??Moderate ventral hernia. I have personally reviewed the image(s) and the resident's interpretation and agree with the findings, Jim Segal MD at 05/14/2022 11:32 AM Thank you for letting us participate in the care of this patient. ??If you are a health care provider and have any questions regarding this report, please contact the number below. ??For patients who have questions please contact the health certified social workers in health care that requested your imaging first. ? Electronically signed by: Jim Segal MD, [facility] ([phone]), at 05/14/2022 11:32 AM Narrative 05/14/2022 11:32 AM EDT EXAMINATION: CT ABDOMEN W CONTRAST CLINICAL HISTORY: Cirrhosis Cirrhosis; HCC surveillance TECHNIQUE: Helical CT of the abdomen was performed following the intravenous administration of 120.0 ml of OMNIPAQUE 350.00 mg/ml. Oral contrast was not administered. COMPARISON: Abdomen and pelvis CT report only 03/13/2016. FINDINGS: Lower chest: Normal. Liver: Nodular contour. Normal size and attenuation without lesions. Bile ducts: Nondilated. Gallbladder: Surgically absent. Surgical clips present within the gallbladder fossa. Pancreas: Partial fatty replacement. No ductal dilatation. Spleen: Normal size. No lesions. Adrenal: Normal. Kidneys: Symmetric enhancement. No renal collecting system dilatation. Well-circumscribed hypoattenuating 4.4 cm right upper pole simple cyst. Vasculature: No aneurysm. Gastric varices present. Left upper quadrant large caliber splenorenal shunt. Lymph nodes: No enlarged lymph nodes. Bowel: Nondilated, no wall thickening. Peritoneum and mesentery: No ascites, free air, or loculated fluid collection. No mesenteric inflammation. Abdominal wall: Moderate sized supraumbilical hernia containing fat and unobstructed transverse colon. 4 cm wide neck and 17 cm wide sac. No strangulation. Osseous structures: No suspicious lesions. Moderate to severe degenerative changes of the thoracic and lumbar spine with vacuum disc phenomenon. Procedure Note Jim Segal MD - 05/14/2022 EXAMINATION: CT ABDOMEN W CONTRAST CLINICAL HISTORY: Cirrhosis Cirrhosis; HCC surveillance TECHNIQUE: Helical CT of the abdomen was performed following theintravenous administration of 120.0 ml of OMNIPAQUE 350.00 mg/ml. Oral contrast wasnot administered. COMPARISON: Abdomen and pelvis CT report only 03/13/2016. FINDINGS: Lower chest: Normal. Liver: Nodular contour. Normal size and attenuation without lesions. Bile ducts: Nondilated. Gallbladder: Surgically absent. Surgical clips present within thegallbladder fossa. Pancreas: Partial fatty replacement. No ductal dilatation. Spleen: Normal size. No lesions. Adrenal: Normal. Kidneys: Symmetric enhancement. No renal collecting system dilatation. Well-circumscribed hypoattenuating 4.4 cm right upper pole simple cyst. Vasculature: No aneurysm. Gastric varices present. Left upper quadrantlarge caliber splenorenal shunt. Lymph nodes: No enlarged lymph nodes. Bowel: Nondilated, no wall thickening. Peritoneum and mesentery: No ascites, free air, or loculated fluidcollection. No mesenteric inflammation. Abdominal wall: Moderate sized supraumbilical hernia containing fat and unobstructed transverse colon. 4 cm wide neck and 17 cm wide sac. No strangulation. Osseous structures: No suspicious lesions. Moderate to severedegenerative changes of the thoracic and lumbar spine with vacuum disc phenomenon. IMPRESSION 1. Cirrhosis. No liver lesions. 2. Gastric varices and splenorenal shunt. 3. Moderate ventral hernia. I have personally reviewed the image(s) and the resident's interpretationand agree with the findings, Jim Segla MD at 05/14/2022 11:32 AM Thank you for letting us participate in the care of this patient. If youare a health care provider and have any questions regarding this report,please contact the number below. For patients who have questions please contactthe health certified social workers in health care that requested your imaging first. Electronically signed by: Jim Segal MD, [facility]([phone]), at 05/14/2022 11:32 AM Rea Hickey MD IMG CT ORDERABLES documented in this encounter Visit Diagnoses Diagnosis Cirrhosis of liver without ascites, unspecified hepatic cirrhosis type documented in this encounter Administered Medications Inactive Administered Medications - up to 3 most recent administrations Medication Order MAR Action Action Date Dose Rate Site iohexoL (Omnipaque) (350 mg/mL) solution 0-200 mL 0-200 mL, Intravenous, ONCE PRN, 1 dose, Starting on Sat05/14/22 at 0933, Until Sat05/14/22 at 0933, Per Protocol, Warning Vesicant/Irritant Medication , Radiology Contrast, Routine Given 05/14/2022 9:33 AM EDT 120 mLs documented in this encounter Care Teams Dairy Management Specialist Relationship Specialty Start Date End Date Justino Lucia MD PCP - General Family Medicine 10/04/21 documented as of this encounter
--- OUTSIDE RECORDS SUMMARY | 2024-07-07 13:39 | XMS_ITS | Encounter Summary ---
Author Organization [facility] Address [facility] [place] [address] Care Team Providers Care Video Player Mechanic Name Role Phone Justino Lucia MD Primary Care Provider [phone] Encounter Details Date Type Department Care Team (Late Contact Info) Description 01/17/2022 Telephone Weight and Wellness at [address] [phone] Claudia Marshall, ELENA Social History Tobacco Use Types Packs/Day Years [...] Telephone Encounter - Claudia Marshall CMA - 01/17/2022 3:30 PM EDT [facility] Arcade Game Technician Pre-telemedicine Visit Phone Note Telma Richter 1950 [] Patient was not reached Patient was reached and the following information was reviewed/obtained per protocol: [x] Confirmed patient name and date of [x] Confirmed ZOOM downloaded and functioning [] ZOOM appointment link sent if no MyDH [x] Phone number to be reached is: [phone] REVIEW: [x] Review of patient medications completed Have you started on any NEW medications? [] No [] Yes: [x] Confirmed preferred pharmacy: [facility] Your provider might ask you what you ate the day prior to the visit Please weigh yourself before the appointment Pedi: Both parent and child need to be present for the visit documented in this encounter Plan of Treatment Upcoming Encounters Date Type Department Care Team (Late st Contact Info) Description 07/22/2024 9:00 AM EST Appointment [place] [phone] Ana Ho MD [facility] [place] [address] 07/22/2024 10:00 AM EST Laboratory Appointment Lab [address] [place] [address] 07/22/2024 11:00 AM EST Office [place] [phone] Ana Ho MD [facility] [place] [address] 09/15/2024 10:00 AM EST TH Visit (TeleHealth) [place] [address] Candy Clifford MD [facility] DR [facility] [address] Scheduled Procedures Name Priority Associated Diagnoses Date/Ti me EGD, UPPER GI ENDOSCOPY (WRV U 2.09) Hepatic cirrhosis, unspecified hepatic cirrhosis type, unspecified whether ascites present documented as of this encounter Visit Diagnoses Not on filedocumented in this encounter Care Teams Video Player Mechanic Relationship Specialty Start Date End Date Justino Lucia MD PCP - General Family Medicine 10/04/21 documented as of this encounter
--- OUTSIDE RECORDS SUMMARY | 2024-07-07 13:39 | XMS_ITS | Encounter Summary ---
Author Organization [facility] Address [facility] [place] [address] Care Team Providers Care Candle Making Supervisor Name Role Phone Justino Lucia MD Primary Care Provider Reason for Visit * Consultation (Routine) - Closed Specialty Diagnoses / Procedures Referred By Marcelo tucker Referred To Contact Gastroenterology Diagnoses Gastric varices Unspecified cirrhosis of liver Justino Lucia MD [address] [place] [address] [place] [address] [facility] [address] [place] [address] Referral ID Status Reason Start Date Expiration Date V isits Requested Visits Authorized [id number] Closed Consult, Test & Treat Connection Center PCP Updated and/or Approved 10/02/2021 03/31/2022 1 1 Encounter Details Date Type Department Care Team (Late st Contact Info) Description 12/14/2021 12:30 PM EDT Office Visit [place] [address] Glenn Cardoso PA [address] [place] [address] [place] [address] Hepatic cirrhosis, unspecified hepatic cirrhosis type, unspecified whether ascites present (Primary Dx); History of hepatitis C; Portal hypertension; Class 3 severe obesity due to excess [...] Sign Reading Time Taken Comments Blood Pressure 134/66 12/14/2021 12:20 PM EDT Pulse 71 12/14/2021 12:20 PM EDT Temperature - - Respiratory Rate - - Oxygen Saturation - - Inhaled Oxygen Concentration - - Weight 156.9 kg (346 lb) 12/14/2021 12:20 PM EDT Height - - Body Mass Index 63.28 12/01/2021 9:18 AM EDT documented in this encounter Progress Notes * Glenn Cardoso PA - 12/14/2021 12:30 PM EDT Images from the original note were not included. HEPATOLOGY NEW PATIENT CONSULTATION Patient: Telma Richter Sex: female Date of : 1950 CAPTAIN ASSISTANT: Glenn Cardoso PA-C PCP: Justino Lucia MD Requesting Provider: Justino Lucia 12/14/21 REASON FOR CONSULTATION: Cirrhosis with gastric varices PROBLEM LIST Patient Active Problem List Diagnosis [...] I10 ??? Class 3 severe obesity with body mass index (BMI) of 60.0 to 69.9 in adult E66.01, Z68.44 ??? History of alcohol abuse F10.11 ??? Hyperlipidemia E78.5 ??? History of colon polyps Z86.010 ??? Osteoarthritis of hip M16.9 ??? History of shoulder replacement Z96.619 ??? Portal hypertension K76.6 ??? Prediabetes R73.03 HISTORY OF PRESENT ILLNESS Telma Richter is a 71 y.o. female referred to hepatology clinic for evaluation of cirrhosis and gastric varices. She is previously followed by Dr. Ramon in [place] for several years for her cirrhosis care. She was treated in 2014 by her primary care doctor for hepatitis C with 12 weeks of Harvoni. She states that she likely got it from cocaine use but has been sober from all drugs and alcohol for several years now. She admits to a heavy alcohol use history only on weekends but she would binge and often notbe able to control her alcohol consumption. She did not drink on weekdays. She completely discontinue drinking alcohol in 2005 when her granddaughter was born and she also quit smoking cigarettes at this time. She also understands that there is a concern about fatty liver. She had an upper endoscopy done a few years ago and was found to have varices in her stomach and believes that she is due foranother scope now. She is also due for colonoscopy and hoping to have them done at the same time. She had a liver biopsy in 1990 at [facility] which is when she first learned about her HCV infection. She learned about her cirrhosis diagnosis however within the last 10 years. She recently saw orthopedics for work-up of possible hip replacement. She was told she is not a candidate because she needs to lose a significant of weight. She was previously referred to the bariatric surgery program was declined because of her cirrhosis history. She would like to avoid having bariatric surgery if at all possible. She would be very interested in a referral to [facility]. She has been making some changes in her diet. Regarding symptoms, she does not have any concerning abdominal or GI related symptoms at the moment. She has had a history of chronic diarrhea but states that this is stable at the moment. She deniesany GI bleeding history. She denies any abdominal bloating/swelling. She does have a ventral abdominal hernia but has not sought surgical intervention because of her cirrhosis. She does have swellingin her legs and hands which is under control at the moment with furosemide and spironolactone. REVIEW OF SYSTEMS General: Admits fatigue, poor sleep, denies weight loss, fever, chills, night sweats Skin: Denies new rashes, easy bruising, jaundice EENT: Denies blurred vision or change in vision, hearing loss, sinus problems, dry eyes or mouth Endocrine: Denies change in tolerance to heat or cold, excessive thirst Cardiovascular: Denies chest pain, palpitations or irregular heart beat, pain in legs with walking,swelling in feet Pulmonary: Denies SOB, persistent cough, coughing up blood, asthma or wheezing Gastrointestinal: Denies poor appetite, abdominal pain, indigestion, trouble swallowing, diarrhea, constipation, nausea/vomitting, rectal bleeding or blood in stools Musculoskeletal: Admits hip pain and other joint pains, denies muscle cramping, movement of legs atnight Neurologic: Admits memory issues, denies blackouts or loss of consciousness, headache, weakness or numbness in legs or arms, tremor Genitourinary: Denies frequent urination, blood in urine Psychiatric: Denies changes in mood or behavior, anxiety MEDICATIONS Current Outpatient Medications Medication Sig Dispense Refill ??? gabapentin (Neurontin) 300 mg Capsule Take 300 mg by mouth 3 times daily. ??? lisinopriL (Zestril) 10 mg Tablet ??? spironolactone (Aldactone) 25 mg Tablet Take [...] as needed for Wheezing. Use with spacer ??? omeprazole (PriLOSEC) 40 mg Capsule, Delayed Release(E.C.) Take 40 mg by mouth daily. No current facility-administered medications for this visit. 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 [employer] Marital status: , has a male partner in [place], 3 children, 9 grandchildren Smoking: Quit 2005 Alcohol: See HPI Other drug: None, did previously snort cocaine and smoke MJ several years ago FAMILY HISTORY Negative except as noted below Medical problem Family member Medical Problem Family member Medical Problem Family member Alcohol drug Problem Kidney disease Mental illness Anemia or Blood Disease Liver disease Brother with HCV cirrhosis, other brother had HH, nephew with HH Depression Diabetes GGM Liver cancer Brother, Seizure High blood pressure Father, brother Stroke Lung disease Heart disease Clotting problems Colon Cancer Maternal uncle High cholesterol Immune disorders Other Cancer Several family members, father ?prostate, just passed, brother brain PHYSICAL EXAM Vitals: 12/14/21 1220 BP: 134/66 Pulse: 71 Weight: (!) 156.9 kg (346 lb) Body mass index is 63.28 kg/m??. Constitutional: Well appearing, appropriate, no acute distress Skin: + palmar erythema, no cyanosis, no jaundice, no spider angiomata Head: Normocephalic, sclerae anicteric CVS: Not assessed Lungs: Not assessed Abdomen: Increased central adiposity, ventral hernia without incarceration, nontender, nondistended, no hepatosplenomegaly, no masses, no fluid wave, no umbilical hernia, no caput medussae Neurologic: Alert and oriented x 3, no asterixis or tremor Extremities: Moderate LE edema, no clubbing, no muscle wasting, no joint swelling RESULTS Recent Results (from the past 24 hour(s)) Ammonia Result Value Ref Range Ammonia 64 (H) 11 - 51 mcmol/L Prothrombin Time Result Value Ref Range PT 13.4 (H) 9.4 - 12.5 sec INR 1.2 Comprehensive metabolic panel (non-fasting) Result Value Ref Range Glucose Lvl 102 65 - 199 mg/dL BUN 14 8 - 18 mg/dL Creatinine 0.82 0.70 - 1.20 mg/dL Sodium 141 135 - 145 mmol/L Potassium 4.1 3.5 - 5.0 mmol/L Chloride 104 98 - 107 mmol/L CO2 27 22 - 31 mmol/L Anion Gap 10 5 - 15 mmol/L Calcium 9.5 8.5 - 10.5 mg/dL Total Protein 7.2 6.1 - 8.0 g/dL Albumin 4.0 3.2 - 5.2 g/dL AST 30 0 - 30 unit/L ALT 26 0 - 30 unit/L Alk Phos 77 35 - 105 unit/L Total Bilirubin 0.9 0.2 - 1.3 mg/dL Estimated GFR 72 >=60 mL/min/1.73 m?? Hemogram Result Value Ref Range WBC 6.5 4.0 - 9.5 x10(3)/mcL RBC 5.10 4.00 - 5.21 x10(6)/mcL Hemoglobin 14.6 11.7 - 15.5 g/dL Hematocrit 44.4 35.7 - 45.8 % MCV 87.1 82.6 - 94.4 fL MCH 28.6 27.1 - 32.0 pg MCHC 32.9 31.7 - 35.0 g/dL Platelets 247 145 - 357 x10(3)/mcL RDWSD 48.8 (H) 37.0 - 46.0 fL RDWCV 15.4 (H) 11.5 - 14.1 % MPV 9.9 7.6 - 12.9 fL nRBC % Auto 0.0 % nRBC Abs Auto 0.000 0.000 - 0.000 x10(3)/mcL Differential, Automated Result Value Ref Range Neutrophils % 66.1 % Neutr Abs (ANC) 4.29 1.70 - 6.10 x10(3)/mcL Lymphocytes % 23.0 % Lymphocytes Abs 1.5 0.9 - 3.2 x10(3)/mcL Monocytes % 8.9 % Monocyte Abs 0.6 0.3 - 0.9 x10(3)/mcL Eosinophils % 1.5 % Eosinophils Abs 0.1 0.0 - 0.4 x10(3)/mcL Basophils % 0.3 % Basophils Abs 0.0 0.0 - 0.1 x10(3)/mcL Immature Gran % 0.20 % Silvia Gran Abs 0.01 0.00 - 0.04 x10(3)/mcL MELD-Na score: 8 at 12/14/2021 1:41 PM MELD score: 8 at 12/14/2021 1:41 PM Calculated from: Serum Creatinine: 0.82 mg/dL (Using min of 1 mg/dL) at 12/14/2021 1:41 PM Serum Sodium: 141 mmol/L (Using max of 137 mmol/L) at 12/14/2021 1:41 PM Total Bilirubin: 0.9 mg/dL (Using min of 1 mg/dL) at 12/14/2021 1:41 PM INR(ratio): 1.2 at 12/14/2021 1:41 PM Age: 71 years Non-DH Laboratory: 10/02/21 @ [facility]: Endoscopy: EGD 05/09/18 (Dr. Ramon): Imaging: No abdominal imaging in referral records ASSESSMENT/PLAN Telma Richter is a 71 y.o. 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 She has had no obvious episodes of decompensation that we are aware of. She does have a history of small gastric varices on EGD in 2018 without any follow-up since. She does have lower extremity edemabut no reported history of ascites. She also has a positive family history of multiple family members with liver disease reportedly due to hemochromatosis, unsure of her HFE status though she states s he has been tested in the past. Recent available laboratory testing from September 2021 with referralrecords showed normal liver function and mostly unremarkable CBC with elevated A1c of 6.0% consistent with prediabetes. She also has osteoarthritis of the hip and undergoing work-up for possible hip replacement though is not a candidate at the moment due to her weight. She has previously been deferred from the bariatric surgery program due to her history of cirrhosis and gastric varices. I had a long discussion with the patient today regarding the natural course of cirrhosis and sequelae of portal hypertension including ongoing risks of GI bleeding, ascites, and hepatic encephalopathy. She did report issues with worsening memory and so we checked an ammonia level today which has already come back being mildly elevated. I think it would be helpful to trial lactulose to see if thisimproves her symptoms and I will reach out to the patient about this shortly. Overall, she seems to be otherwise very well compensated from a liver perspective. Her MELD score today is calculated at 8. She does require updated EGD to follow-up gastric varices and we can do this at the same time as colonoscopy which she is also due for this year for her history of polyps in 17. Discussed ongoing need for routine hepatocellular carcinoma surveillance with imaging every 6 months. She is under the impression she had an ultrasound sometime over the winter, unsure when, so we will reach out to her local hospitals. If more than 6 months ago, I would recommend cross-sectional imaging now with CT scan given her body habitus and better penetrance than ultrasound. She has history of shoulder replacement and unsure if she would be able to tolerate MRI. For her weight loss efforts, she seems understand she needs to make some changes in her diet. I would also recommend she consider low-dose Metformin for prediabetes which may help with weight loss. She is interested in referral to the weight and wellness center which I am happy to order and she maybe candidate for other weight loss pharmacotherapy such as GLP-1 agonist. I agree that she is not acandidate for bariatric surgery given her portal hypertension. Plan: -Await remaining AFP tumor marker from labs today. -Trial lactulose 30 mL 1-2 times daily for possible hepatic encephalopathy. Goal will be for 3-4 loose bowel movements. I will reach out to patient on the portal. -EGD/colonoscopy next available with propofol anesthesia. If she has large varices, would likely recommend swapping her metoprolol for a nonselective beta- rafa for primary bleeding prophylaxis. -Check with prior gastroenterology office about previous HFE mutation analysis testing for strong family history of hemochromatosis. If not previously done, we can check this with her next visit. -Check with NEVIN and Bryn when her last abdominal imaging was. We will obtain CT abdomen with liver protocol 6 months from her last imaging. -Also should check with primary care office if she has been vaccinated for HAV/HBV and other healthcare maintenance including being up-to-date with COVID- 19 vaccinations, annual influenza vaccine, and pneumococcal vaccine every 5 years. -Continue maintaining alcohol sobriety indefinitely. -Referral to [facility]. -Hepatology follow-up likely in 6 months with labs/imaging prior. Time spent reviewing records prior to this encounter: 16 minutes Time spent during encounter with patient including counselin minutes Time spent documenting encounter on date of service: 19 minutes Approximate total time devoted to this single encounter on date of service: 87 minutes Glenn Cardoso PA-C Section of Gastroenterology [place] [address] Copy: MD Justino Ni documented in this encounter Plan of Treatment Upcoming Encounters Date Type Department Care Team (Late st Contact Info) Description 07/22/2024 9:00 AM EST Appointment Ultrasound at [place] [phone] Ana Ho MD [facility] [place] [address] 07/22/2024 10:00 AM EST Laboratory Appointment Lab [address] [place] [phone] 07/22/2024 11:00 AM EST Office Visit Gastroenterology at [place] [phone] Ana Ho MD [facility] [place] [address] 09/15/2024 10:00 AM EST TH Visit (TeleHealth) Weight and Wellness at [place] [phone] Candy Clifford MD [facility] [place] [address] Scheduled Procedures Name Priority Associated Diagnoses Date/Ti me EGD, UPPER GI ENDOSCOPY (WRV U 2.09) Hepatic cirrhosis, unspecified hepatic cirrhosis type, unspecified whether ascites present documented as of this encounter Procedures Procedure Name Priority Date/Time Associated Diagnosis Comments HEMOGRAM Routine 12/14/2021 1:41 PM EDT Hepatic cirrhosis, unspecified hepatic cirrhosis type, unspecified whether ascites present DIFFERENTIAL, AUTOMATED Routine 12/14/2021 1:41 PM EDT Hepatic cirrhosis, unspecified hepatic cirrhosis type, unspecified whether ascites present HC ALPHA FETOPROTEIN TUMOR MARKER Routine 12/14/2021 1:41 PM EDT Hepatic cirrhosis, unspecified hepatic cirrhosis type, unspecified whether ascites present HC PROTHROMBIN TIME Routine 12/14/2021 1 :41 PM EDT Hepatic cirrhosis, unspecified hepatic cirrhosis type, unspecified whether ascites present HC CBC,PLT & AUTO DIFF Routine 2 1:41 PM EDT Hepatic cirrhosis, unspecified hepatic cirrhosis type, unspecified whether ascites present HC AMMONIA, PLASMA Routine 12/14/2021 1: 41 PM EDT Hepatic cirrhosis, unspecified hepatic cirrhosis type, unspecified whether ascites present COMPREHENSIVE METABOLIC PANEL Routine 12/14/2021 1:41 PM EDT Hepatic cirrhosis, unspecified hepatic cirrhosis type, unspecified whether ascites present documented in this encounter Results * Differential, Automated (12/14/2021 1:41 PM EDT) Neutrophil % 66.1 % [facility] Neutrophil Absolute 4.29 1.70 - 6.10 x10(3)/[facility] Lymph % 23.0 % [facility] Lymphocytes Abs 1.5 0.9 - 3.2 x10(3)/[facility] Monocyte % 8.9 % [facility] Monocyte Abs 0.6 0.3 - 0.9 x10(3)/[facility] Eos % 1.5 % [facility] Eosinophils Abs 0.1 0.0 - 0.4 x10(3)/[facility] Basophil % 0.3 % [facility] Baso Absolute 0.0 0.0 - 0.1 x10(3)/[facility] Immature Gran % 0.20 % [facility] Comment: Immature granulocytes(IG's)percentage and absolute count will include metamyelocytes, myelocytes, and promyelocytes. Blood smears from CBCs yielding IG's will be scanned manually for concordance. If this scan disagrees with the automated IG or if promyelocytes are noted, a manual differential will be performed. Immature Gran Absolute 0.01 0.00 - 0.04 x10(3)/[facility] Blood 12/14/2021 1:41 PM EDT 12/14/2021 1:52 PM EDT Narrative Resulting Agency Comment Spec In Lab Glenn CHOWDHURY HEMATOLOGY ORDERABLE S [facility] [place] [address] * (ABNORMAL) Hemogram (12/14/2021 1:41 PM EDT) White Blood Cell 6.5 4.0 - 9.5 x10(3)/ L [facility] Red Blood Cell 5.10 4.00 - 5.21 x10(6)/ L [facility] Hemoglobin 14.6 11.7 - 15.5 g/dL [facility] Hematocrit 44.4 35.7 - 45.8 % [facility] Mean Cell Volume 87.1 82.6 - 94.4 fL [facility] Mean Cell Hemoglobin 28.6 27.1 - 32.0 pg [facility] Mean Cell Hemoglobin Concentration 32.9 31.7 - 35.0 g/dL [facility] Platelet 247 145 - 357 x10(3)/mc L [facility] RDW Standard Deviation 48.8(H) 37.0 - 46.0 fL [facility] RDW coefficient of variation 15.4(H) 11.5 - 14.1 % [facility] Mean Platelet Volume 9.9 7.6 - 12.9 fL [facility] NRBC% auto 0.0 % [facility] NRBC Absolute 0.000 0.000 - 0.000 x10(3)/mc L [facility] Blood 12/14/2021 1:41 PM EDT 12/14/2021 1:52 PM EDT Narrative Resulting Agency Comment Spec In Lab Glenn CHOWDHURY HEMATOLOGY ORDERABLE S [facility] [place] [address] * (ABNORMAL) Ammonia (12/14/2021 1:41 PM EDT) Ammonia 64(H) 11 - 51 mcmol/L [facility] Blood 12/14/2021 1:41 PM EDT 12/14/2021 1:45 PM EDT Narrative Resulting Agency Comment Spec In Lab Rea Hickey MD CHEMISTRY ORDERABLES Performing Organization Address City/[facility]/ZIP Co de Phone Number [facility] [place] [address] * AFP tumor marker (12/14/2021 1:41 PM EDT) Alpha Fetoprotein 3.2 <=8.3 ng/mL [facility] Blood 12/14/2021 1:41 PM EDT 12/14/2021 1:52 PM EDT Narrative Resulting Agency Comment Spec In Lab Rea Hickey MD CHEMISTRY ORDERABLES Performing Organization Address [facility]/ZIP Co de Phone Number [facility] [place] [address] * (ABNORMAL) Prothrombin Time (12/14/2021 1:41 PM EDT) Prothrombin Time 13.4(H) 9.4 - 12.5 sec [facility] International Normalization Ratio 1.2 [facility] Comment: An INR <2.0 [...] be appropriate depending on clinical circumstances. Blood 12/14/2021 1:41 PM EDT 12/14/2021 1:52 PM EDT Narrative Resulting Agency Comment Spec In Lab Rea Hickey MD HEMATOLOGY ORDERABLE S Performing Organization Address [facility] Co de Phone Number [facility] [place] [address] * Comprehensive metabolic panel (non-fasting) (12/14/2021 1:41 PM EDT) Glucose 102 65 - 199 mg/dL [facility] Comment:Diabetes: >=200 mg/d L plus symptoms Blood Urea Nitrogen 14 8 - 18 mg/dL [facility] Creatinine 0.82 0.70 - 1.20 mg/dL [facility] Sodium 141 135 - 145 mmol/L [facility] Potassium 4.1 3.5 - 5.0 mmol/L [facility] Comment: Please note: ??Patients with WBC >100,000 may have falsely elevated Potassium levels. ??For accurate Potassium quantification in these patients send serum separator tube (gold top) for subsequent determinations. ??Contact the Clinical Chemistry Laboratory if there are any questions. Chloride 104 98 - 107 mmol/L [facility] Carbon Dioxide 27 22 - 31 mmol/L [facility] Anion Gap 10 5 - 15 mmol/L [facility] Calcium 9.5 8.5 - 10.5 mg/dL [facility] Protein, Total 7.2 6.1 - 8.0 g/dL [facility] Albumin 4.0 3.2 - 5.2 g/dL [facility] Aspartate Aminotransferase 30 0 - 30 unit/L [facility] Alanine Aminotransferase 26 0 - 30 unit/L [facility] Alkaline Phosphatase 77 35 - 105 unit/L [facility] Bilirubin, Total 0.9 0.2 - 1.3 mg/dL [facility] Est Glomerular Filtration Rate 72 >=60 mL/min/1. 73 m?? [facility] Comment: This patient? s estimated glomerular filtration rate (eGFR) is between 72 mL/min/1.73 m2 (patients with less muscle mass) and 84 mL/min/1.73 m2 (patients with more muscle mass) as determined by the CKD-EPI equation. Assessment of eGFR is not appropriate when creatinine concentrations are rapidly changing. For clinical decisions where creatinine clearance will affect therapy, a 24-hour urine creatinine clearance may be advised. Assignment of CKD stage 1 - 5 for patients with an eGFR near the transition point between stages may be based on clinical assessment of muscle mass and symptoms in addition to eGFR. Blood 12/14/2021 1:41 PM EDT 12/14/2021 1:51 PM EDT Narrative Resulting Agency Comment Spec In Lab Rea Hickey MD CHEMISTRY ORDERABLES [facility] [place] [address] documented in this encounter Visit Diagnoses Diagnosis Hepatic cirrhosis, unspecified hepatic cirrhosis type, unspecified whether ascites present- Primary History of hepatitis C Personal history of other infectious and parasitic disease Portal hypertension Class 3 severe obesity due to excess calories with serious comorbidity and body mass index (BMI) of 60.0 to 69.9 in adult documented in this encounter Care Teams Candle Making Supervisor Relationship Specialty Start Date End Date Justino Lucia MD PCP - General Family Medicine 10/04/21 documented as of this encounter
--- OUTSIDE RECORDS SUMMARY | 2024-07-07 13:39 | XMS_ITS | Encounter Summary ---
Author Organization [facility] [place] [address] Care Team Providers Care Accounting Manager Cpa Name Role Phone Page, Aleida Lopez APRN Primary Care Provider [phone] Encounter Details Date Type Department Care Team (Late Contact Info) Description 05/21/2017 Abstract Cardiology at [address] [place] [phone] Jame Cadet RN Social History Tobacco Use Types Packs/Day [...] 07/22/2024 9:00 AM EST [place] [phone] Ana Ho MD [facility] [place] [address] 07/22/2024 10:00 AM EST Laboratory Appointment Lab [address] [place] [phone] 07/22/2024 11:00 AM EST Office [place] [address] Ana Ho MD [facility] [place] [address] 09/15/2024 10:00 AM EST TH Visit (TeleHealth) [place] [phone] Candy Clifford MD [facility] [place] [address] Scheduled Procedures Name Priority Associated Diagnoses Date/Ti me EGD, UPPER GI ENDOSCOPY (WRV U 2.09) Hepatic cirrhosis, unspecified hepatic cirrhosis type, unspecified whether ascites present documented as of this encounter Visit Diagnoses Not on filedocumented in this encounter Care Teams Accounting Manager Cpa Relationship Specialty Start Date End Date Aleida Alva APRN [address] [place] [address] PCP - General Family Medicine 05/02/17 10/03/21 documented as of this encounter
--- OUTSIDE RECORDS SUMMARY | 2024-07-07 13:39 | XMS_ITS | Encounter Summary ---
Author Organization [facility] [place] [address] Care Team Providers Care Geospatial Extractor Analysis Name Role Phone Justino Lucia MD Primary Care Provider [phone] Encounter Details Date Type Department Care Team (Late st Contact Info) Description 10/06/2021 Telephone [place] [address] Jennifer December Social History Tobacco Use Types Packs/Day Years [...] encounter Miscellaneous Notes * Telephone Encounter - Jennifer December - 10/06/2021 1:46 PM EST Telma Richter [id number] Diagnosis/Indication: screening colo 1. Have you ever had a/an Colonoscopy before? Yes: Date 3 years ago Bryn If yes, did you have any problems with the procedure? No What type of sedation was used: Other: unknown 2. Do you take any blood thinners or have you been diagnosed with a bleeding disorder that increases your risk of bleeding with procedures? No 3. Do you have a Pacemaker or Defibrillator device? No 4. Are you a diabetic? No 5. Do you have any Allergies to Eggs, Latex or Medications? No 6. Do you take any Oral Iron Supplements (Including multi-vitamins)? Yes (Multivitamin) 7. Do you have a history of three or more abdominal surgeries? No 8. Have you had a problem with sedation or anesthesia? No 9. Do you use a c-pap machine or oxygen tank? Neither 10. Do you take prescription narcotic pain medications, including suboxone or methodone? No 11. Do you have a preference regarding the gender of your provider? No Preference 12. Is there any other information you would like to us to note for the provider and nursing team who will perform your case? No 13. Say to patient: You must have a responsible constitution party who will drive you to your procedure, stay [place] for the entire duration of your procedure, and drive you home from your procedure? Age:71 y.o. Height 53 Weight 371 bmi 65.7 documented in this encounter Plan of Treatment Upcoming Encounters Date Type Department Care Team (Late st Contact Info) Description 07/22/2024 9:00 AM EST [place] [address] Ana Ho MD [facility] [address] 07/22/2024 10:00 AM EST Laboratory Appointment Lab [address] [place] [address] 07/22/2024 11:00 AM EST Office [place] [address] Ana Ho MD [facility] [place] [address] 09/15/2024 10:00 AM EST TH Visit (TeleHealth) [place] [address] Candy Clifford MD [facility] DR [facility] [place] [address] Scheduled Procedures Name Priority Associated Diagnoses Date/Ti me EGD, UPPER GI ENDOSCOPY (WRV U 2.09) Hepatic cirrhosis, unspecified hepatic cirrhosis type, unspecified whether ascites present documented as of this encounter Visit Diagnoses Not on filedocumented in this encounter Care Teams Geospatial Extractor Analysis Relationship Specialty Start Date End Date Justino Lucia MD PCP - General Family Medicine 10/04/21 documented as of this encounter
--- OUTSIDE RECORDS SUMMARY | 2024-07-07 13:39 | XMS_ITS | Encounter Summary ---
Author Organization [facility] Address [facility] [place] [address] Care Team Providers Care Milk Tanker Driver Name Role Phone Justino Lucia MD Primary Care Provider [phone] Encounter Details Date Type Department Care Team (Late Contact Info) Description 04/17/2022 Telephone [facility] at [facility] [address] [place] [phone] Claudia Marshall, ELENA Social History Tobacco Use [...] Telephone Encounter - Claudia Marshall CMA - 04/17/2022 3:15 PM EDT [facility] Cargo Handler Pre-telemedicine Visit Phone Note Telma Richter 1950 [] Patient was not reached Patient was reached and the following information was reviewed/obtained per protocol: [x] Confirmed patient name and date of [x] Confirmed ZOOM downloaded and functioning [] ZOOM appointment link sent if no MyDH [x] Phone number to be reached is: [phone] REVIEW: [x] Review of patient medications completed Have you started on any NEW medications? [x] No [] Yes: [x] Confirmed preferred pharmacy: [facility] [place] Reminders Your provider might ask you what you ate the day prior to the visit Please weigh yourself before the appointment Pedi: Both parent and child need to be present for the visit documented in this encounter Plan of Treatment Upcoming Encounters Date Type Department Care Team (Late st Contact Info) Description 07/22/2024 9:00 AM EST Appointment [place] [phone] Ana Ho MD [facility] [place] [address] 07/22/2024 10:00 AM EST Laboratory Appointment Lab [address] [place] [phone] 07/22/2024 11:00 AM EST Office Visit [place] [phone] Ana Ho MD [facility] [place] [address] 09/15/2024 10:00 AM EST TH Visit (TeleHealth) Weight [place] [phone] Candy Clifford MD [facility] DR [facility] [address] Scheduled Procedures Name Priority Associated Diagnoses Date/Ti me EGD, UPPER GI ENDOSCOPY (WRV U 2.09) Hepatic cirrhosis, unspecified hepatic cirrhosis type, unspecified whether ascites present documented as of this encounter Goals Goal Patient Goal Type Associated Problems Recent Progress Patient-Stated? Author movement Exercise On track(2021 11:16 AM EDT) No Pankaj Mcadams Note: Try gentle movement like chair yoga, t'ai chi and qigong. Health Merchandising Execution Manager will send hand-outs. Use resistance bands. Health Merchandising Execution Manager will request a set be mailed. [...] opportunity to start with protein (cottage cheese, maori yogurt, protein smoothies, chicken or chicken salad [...] for sample meal ideas in the USPS [facility] Keep food log until you are seen by the dieititian. Record everything you eat or drink, include time eaten and any emotional changes that are significant. relaxation/sleep Lifestyle No Pankaj Mcadams Note: Try some meditation/relaxation apps when I wake in the night and can't go back to sleep. Health Merchandising Execution Manager will send some to try. Tried apps but don't really like them as I like the quiet when going to sleep. [facility] 04/23 documented as of this encounter Visit Diagnoses Not on filedocumented in this encounter Care Teams Milk Tanker Driver Relationship Specialty Start Date End Date Justino Lucia MD PCP - General Family Medicine 10/04/21 documented as of this encounter
--- OUTSIDE RECORDS SUMMARY | 2024-07-07 13:39 | XMS_ITS | Encounter Summary ---
Author Organization [facility] [place] [address] Care Team Providers Care Sheet Manufacturing Supervisor Name Role Phone Justino Lucia MD Primary Care Provider [phone] Encounter Details Date Type Department Care Team (Late st Contact Info) Description 04/24/2022 Telephone [place] [address] Jennifer December Social History Tobacco Use Types [...] * Telephone Encounter - Jennifer December - 04/24/2022 1:54 PM EDT Telma Richter [id number] Diagnosis/Indication: 1) cirrhosis with h/o gastric varices in 2018 (Dr. Ramon), overdue for screening EGD; 2) due for colonoscopy with h/o polyps in 2017 Please review patient chart to confirm if [...] SCHEDULING QUESTIONS (ask all patient these questions) 1. Have you ever had a/an Upper Endoscopy & Colonoscopy before? Yes: Date 4 years Bryn If yes, did you have any [...] patient information and date or procedure. No 4. Are you a diabetic? If yes, call PCP/managing provider to discuss use of prep and any questions or concerns related to. No 5. Do you take any iron supplements or vitamins that contain iron? No 6. Do you have a preference regarding the gender of your provider? No ANESTHESIA QUESTIONS (YES to any question, please book with Anesthesia support) 7. Have you ever been diagnosed with any of the following: Pulmonary Hypertension, Atrial Fibrillation (A-Fib) and/or Congential Heart Disease? No 8. Have you ever had an allergic or adverse reaction to Fentanyl or Versed? No 9. Have you had a problem with sedation or anesthesia? (Waking up during procedure, extreme confusion after, etc.) No 10. Do you have a diagnosis of Obstructive Sleep Apnea? No 11. Do you use a c-pap machine? Neither 12. Do you use an oxygen tank at home? No 13. Do you use a rescue inhaler more than twice per day? (COPD, severe asthma) No 14. Do you experience breathing problems when you lay flat for a period of time? No 15. Do you take prescription narcotic pain medications, including suboxone or methodone? No SCHEDULING CONFIRMATIONS: Please note any and all parts of your conversation with the patient here. 16. We offer all new patients an opportunity to have an appointment with one of our associate care providers to learn more about your upcoming procedure, ask questions and get answers. These appointments are offered via telehealth. Would you be interested in scheduling this appointment? (Only ask if NEW referral patient; skip this question if [facility] GI provider ordered the procedure.) No 17. Is there any other information or concerns you would like to us to share with your care team inrelation to your upcoming scheduled procedure? No 18. You must have a responsible green party who will drive you to your procedure, stay on campus for the entire duration of your procedure, and drive you home from your procedure. Who will likely be your otr hazmat company driver for the procedure? Height 52 Weight 328 bmi 60.0 documented in this encounter Plan of Treatment Upcoming Encounters Date Type Department Care Team (Late st Contact Info) Description 07/22/2024 9:00 AM EST Appointment [place] [phone] Ana Ho MD [facility] [place] [address] 07/22/2024 10:00 AM EST Laboratory Appointment Lab [address] [phone] 07/22/2024 11:00 AM EST Office [place] [address] Ana Ho MD [facility] [place] [address] 09/15/2024 10:00 AM EST TH Visit (TeleHealth) [place] [address] Candy Clifford MD [facility] DR [facility] [place] [address] Scheduled Procedures Name Priority Associated Diagnoses Date/Ti me EGD, UPPER GI ENDOSCOPY (WRV U 2.09) Hepatic cirrhosis, unspecified hepatic cirrhosis type, unspecified whether ascites present documented as of this encounter Goals Goal Patient Goal Type Associated Problems Recent Progress Patient-Stated? Author movement Exercise On track(2021 11:16 AM EDT) No Pankaj Mcadams Note: Try gentle movement like chair yoga, t'ai chi and qigong. Health Automatic Clipper And Stripper will send hand-outs. Use resistance bands. Health Automatic Clipper And Stripper will request a set be mailed. Movement [...] for sample meal ideas in the USPS [facility] Keep food log until you are seen by the dieititian. Record everything you eat or drink, include time eaten and any emotional changes that are significant. relaxation/sleep Lifestyle No Pankaj Mcadams Note: Try some meditation/relaxation apps when I wake in the night and can't go back to sleep. Health Automatic Clipper And Stripper will send some to try. Tried apps but don't really like them as I like the quiet when going to sleep. [facility] 04/23 documented as of this encounter Visit Diagnoses Not on filedocumented in this encounter Care Teams Sheet Manufacturing Supervisor Relationship Specialty Start Date End Date Justino Lucia MD PCP - General Family Medicine 10/04/21 documented as of this encounter
--- OUTSIDE RECORDS SUMMARY | 2024-07-07 13:39 | XMS_ITS | Encounter Summary ---
Author Organization [facility] Address [facility] [place] [address] Care Team Providers Care Orthophotography Technician Name Role Phone Justino Lucia MD Primary Care Provider [phone] Encounter Details Date Type Department Care Team (Latest Contact Info) Description 02/06/2022 2:30 PM EDT TH Visit (TeleHealth) Weight and Wellness at [facility] [address] [place] [address] Pankaj Mcadams Class 3 severe obesity due [...] Instructions * Patient Instructions* Pankaj Mcadams - 02/11/2022 9:09 AM EDT It was good to talk with you Telma. You're working on building more activity and movement into yourday. You are also building awareness around portion sizes and hunger/satisfaction. I'll send yo some hand-outs with links to videos to try some gentle movement, as we discussed. I look forward to talking with you soon. Be well, Pankaj Mcadams Health Systems Support Specialist documented in this encounter Progress Notes * Pankaj Mcadams - 02/06/2022 2:30 PM EDT Telma Richter is here today at the request of Dr. Clifford for lifestyle coaching for weight control and overall health. FIRST VISIT 1. Clarify BIG WHY: want to fel and move better, less pain 2. Assess Strengths: knowledge 3. Review Healthy habits guidelines for exercise, sleep, and stress- see below 4. Teach SMART goals and practice setting one(connect to BIG WHY, pillars). 5. Remind Patient to review info in Welcome Packet: 6. Review Pathways (note any questions): Review specific goals if any from provider Goals ??? Nutrition Keep food log until you are seen by the dieititian. Record everything you eat or drink, include time eaten and any emotional changes that are significant. Exercise Starting PT, interested in gentle movement Sleep Not discussed other than getting up in the night often to use bathroom Stress Managing okay, interested in learning positive ways to relax Self-monitoring What are you doing now? If no personal accountability process, what can you add? [x]Food log: [] daily [x] intermittent []Weigh-ins: [] daily [] weekly [x]Exercise log [x]Gratitude journal []Other: Food Behaviors (optional): Mindful of portion sizes Future follow-up with health wrestling coach will address identified areas of concern: [x] Exercise [x]Sleep []Stress [x]Accountability []Food Behaviors []Self-compassion Below are guidelines for [...] increasing mindfulness throughout the day. Your health wrestling coach is well-equipped to guide you to find something to look forward to everyday. Eating behaviors: many people benefit from restricting the hours in which they eat. You can choose an eating window of 8-12 hours to start. Make a pact with yourself that you will not take in anything with caloric content outside this window. Your cloth coverer may make further recommendations documented in this encounter Plan of Treatment Upcoming Encounters Date Type Department Care Team (Late st Contact Info) Description 07/22/2024 9:00 AM [place] [phone] Ana Ho MD [facility] [place] [address] 07/22/2024 10:00 AM EST Laboratory Appointment Lab [address] [place] [phone] 07/22/2024 11:00 AM EST Office [place] [phone] Ana Ho MD [facility] [place] [address] 09/15/2024 10:00 AM EST TH Visit (TeleHealth) Weight and Wellness at [facility] [place] [address] Candy Clifford MD [facility] DR [facility] [address] Scheduled Procedures Name Priority Associated Diagnoses Date/Ti me EGD, UPPER GI ENDOSCOPY (WRV U 2.09) Hepatic cirrhosis, unspecified hepatic cirrhosis type, unspecified whether ascites present documented as of this encounter Goals Goal Patient Goal Type Associated Problems Recent Progress Patient-Stated? Author movement Exercise On track(2021 11:16 AM EDT) No Pankaj Mcadams Note: Try gentle movement like chair yoga, t'ai chi and qigong. Health Systems Support Specialist will send hand-outs. Use resistance bands. Health Systems Support Specialist will request a set be mailed. Nutrition Lifestyle No Candy Clifford MD Note: Nutrition Goals updated today: 12/11/22 TF 1. Focus on reaching adequate protein intake - aim for 60-80 grams (handout attached in after visit summary) 2. Consider the 3 eating events per day to be an opportunity to start with protein (cottage cheese, italian yogurt, protein smoothies, chicken or chicken salad [...] for sample meal ideas in the [facility] Keep food log until you are seen by the dieititian. Record everything you eat or drink, include time eaten and any emotional changes that are significant. documented as of this encounter Visit Diagnoses Diagnosis Class 3 severe obesity due to excess calories with serious comorbidity and body mass index (BMI) of 60.0 to 69.9 in adult documented in this encounter Care Teams Orthophotography Technician Relationship Specialty Start Date End Date Justino Lucia MD PCP - General Family Medicine 10/04/21 documented as of this encounter
--- OUTSIDE RECORDS SUMMARY | 2024-07-07 13:39 | XMS_ITS | Encounter Summary ---
Author Organization [facility] [place] [address] Care Team Providers Care Dinking Machine Operator Name Role Phone Justino Lucia MD Primary Care Provider [phone] Encounter Details Date Type Department Care Team (Late st Contact Info) Description 04/20/2022 4:30 PM EDT TH Visit (TeleHealth) Weight and Wellness at [address] [phone] Candy Clifford MD [facility] [address] Class 3 severe obesity due to excess calories with serious comorbidity and body mass index (BMI) of 60.0 to 69.9 in adult; Hyperlipidemia, unspecified hyperlipidemia type; Prediabetes; Hypertension, unspecified type Social History Tobacco Use [...] Progress Notes * Candy Clifford MD - 04/20/2022 4:30 PM EDTSummary: 3rd Visit with Patient provided verbal consent prior to initiation of this telemedicine encounter and expressed understanding that the telemedicine visit may be billed similar to a clinic visit, pt was seen while via [x] Video [] phone For this video visit, pt is located at: [facility] Patient Name: Telma Richter Date of : 1950 Age: 71 y.o. Justino Lucia MD Thank you for referring [facility] the [facility]. I saw her for a follow-upvisit today, 04/28/22. Please see changes to care as documented in the assessment and plan. CHIEF COMPLAINT: F/u for treatment of WHO Class 3 / EOSS Stage 2 Obesity defined by initial BMI and comorbidities:HTN, Hyperlipidemia and Vitamin D deficiency. GERD. OA. This is Visit #3 [facility] visit for this 71 y.o. patient. Weight gain due to: Unclear - sits at home; notes gaining weight when she moved here from [place] to take care of her dad about 10 years ago. Multiple deaths in the family in the same time frame. Initial weight 01/18/22: 335 lbs (33.5 lbs, 10%) 03/01/2022, 335 lbs (no change) 04/20/2022, 328.5 lbs (-6.5 lbs) [facility] Team: Lacey Martino RD and Pankaj Mcadams, Health Marketing Project Coordinator HPI Was sick for a couple of weeks, flu like symptoms, didn't eat for a couple of days. Feeling better but a little cough. COVID negative. Didn't call PCP. Movement: PT in [place], enjoying this, doing steps now - walking a little without cane and can stand up straight. This is really having a benefit for her - enjoys moving her body and sees the change. Has gone from immobility to doing steps and being able to get out of the car. Stress: Not stressed. Sleep: sometimes wakes up, but sleeping better than I was Recall: B - 2 eggs on EM D - Pizza - 1.5 slices Not a big drinker, water mostly Working with Pankaj, she has been very helpful. Signed up for Eat and Live Smarter. Thinking about going to senior center. AOM: Currently taking: Ozempic 0.5 mg AOM [...] HCV cirrhosis; ? FLD Diabetes spectrum - prediabetes Obesogenic meds: metoprolol, gabapentin REVIEW OF LABS/DIAGNOSIS SINCE LAST VISIT [x] I reviewed past / interim records including notes and labs. ONGOING INTERVENTIONS (Topics discussed today in BOLD): For specific behavioral interventions, see goals Nutrition: specific recommendations per RD Behavior: NO CONCERNS Activity: Provided resistance band and booklet Barriers: []needs cardiac eval []injury/pain preventing activity right now Stress Management:no concerns Sleep: no concerns Self-monitoring: Food log Pathway: [x]Individual [x]HLP []Surgery []Culinary []ACT []Monthly Lifestyle Classes Discussion 04/28/22: Doing well with lifestyle modification, advancing with movement. Will continueOzempic and titrate as tolerated. Continue engagement with HC and classes. [facility] PATHWAY - ADULT 01/18/2022 Obesity Medicine Activate Goals ??? movement Try gentle movement like chair yoga, t'ai chi and qigong. Health Marketing Project Coordinator will send hand-outs. Use resistance bands. Health Marketing Project Coordinator will request a set be mailed. ??? [...] can't go back to sleep. Health Marketing Project Coordinator will send some to try. Tried apps but don't really like them as I like the quiet when going to sleep. [facility] 04/23 VITAL SIGNS: There were no vitals filed for this visit. There is no height or weight on file to calculate BMI. PHYSICAL EXAM: Gen: Alert and appropriate, NAD. LABS: Lab Results Component Value Date WBC 6.5 12/14/2021 RBC 5.10 12/14/2021 HGB 14.6 12/14/2021 HCT 44.4 12/14/2021 MCV 87.1 12/14/2021 MCH 28.6 12/14/2021 MCHC 32.9 12/14/2021 PLATELET 247 12/14/2021 RDWCV 15.4 (H) 12/14/2021 Lab Results Component Value Date NA 141 12/14/2021 K 4.1 12/14/2021 CL 104 12/14/2021 CO2 27 12/14/2021 BUN 14 12/14/2021 CREATININE 0.82 12/14/2021 GLUCOSE 102 12/14/2021 CALCIUM 9.5 12/14/2021 ESTGFR 72 12/14/2021 Lab Results Component Value Date ALT 26 12/14/2021 AST 30 12/14/2021 ALKPHOS 77 12/14/2021 BILITOT 0.9 12/14/2021 BILIDIR 0.3 02/07/2016 ALBUMIN 4.0 12/14/2021 PROT 7.2 12/14/2021 Lab Results Component Value Date CHLPL 110 (L) 01/25/2022 HDL 37 (L) 01/25/2022 TRIG 68 01/25/2022 LDLCHOL 59 01/25/2022 Lab Results Component Value Date HA1C 5.5 01/25/2022 Lab Results Component Value Date TSH 2.02 01/25/2022 Lab Results Component Value Date LABINSU 28 01/25/2022 No results found for: GLUCFASTING Lab Results Component Value Date [id number] 1,091 (H) 01/25/2022 25-OH Vit D Total (no units) Date Value Status 01/25/2022 40.1 Final No results found for: URICACID ASSESSMENT AND PLAN Telma Richter was seen in follow up [...] deficiency. GERD. OA. Referrals pending: Dietitian, Health Marketing Project Coordinator AOM: Ozempic 0.5 mg Diagnoses and all orders for this visit: Class 3 severe obesity due to excess calories with serious comorbidity and body mass index (BMI) of60.0 to 69.9 in adult Hyperlipidemia, unspecified hyperlipidemia type Prediabetes Hypertension, unspecified type Other orders - semaglutide (Ozempic) 0.25 mg or 0.5 mg(2 mg/1.5 mL) Pen Injector; Inject 0.5 mg subcutaneously once a week. No orders of the defined types were placed in this encounter. Return in about 6 weeks (around 06/04/2022) for In person or Zoom, With me. 3 min chart review 30 min [id number] Visit time 5 min Documentation time I [...] 07/22/2024 9:00 AM EST Appointment [place] [phone] Ana Ho MD [facility] [place] [address] 07/22/2024 10:00 AM EST Laboratory Appointment Lab [address] [place] [phone] 07/22/2024 11:00 AM EST Office [place] [phone] Ana Ho MD [facility] [place] [address] 09/15/2024 10:00 AM EST TH Visit (TeleHealth) [place] [phone] Candy Clifford MD [facility] [address] Scheduled Procedures Name Priority Associated Diagnoses Date/Ti [...] yoga, t'ai chi and qigong. Health Marketing Project Coordinator will send hand-outs. Use resistance bands. Health Marketing Project Coordinator will request a set be mailed. Movement [...] can't go back to sleep. Health Marketing Project Coordinator will send some to try. Tried apps but don't really like them as I like the quiet when going to sleep. [facility] 04/23 documented as of this encounter Visit Diagnoses Diagnosis Class 3 severe obesity due to excess calories with serious comorbidity and body mass index (BMI) of 60.0 to 69.9 in adult Hyperlipidemia, unspecified hyperlipidemia type Prediabetes Other abnormal glucose Hypertension, unspecified type documented in this encounter Care Teams Dinking Machine Operator Relationship Specialty Start Date End Date Justino Lucia MD PCP - General Family Medicine 10/04/21 documented as of this encounter
--- OUTSIDE RECORDS SUMMARY | 2024-07-07 13:39 | XMS_ITS | Encounter Summary ---
Author Organization [facility] [place] [address] Care Team Providers Care Special Loan Officer Name Role Phone Justino Lucia MD Primary Care Provider [phone] Encounter Details Date Type Department Care Team (Late st Contact Info) Description 05/14/2022 1:30 PM EDT Office [place] [phone] Glenn Cardoso, PA [address] [place] [address] [place] [address] Hepatic cirrhosis, unspecified hepatic cirrhosis type, unspecified whether ascites present (Primary Dx); Portal hypertension; History of hepatitis C; NAFLD (nonalcoholic fatty liver disease); Prediabetes Social History Tobacco Use Types Packs/Day [...] Sign Reading Time Taken Comments Blood Pressure 145/71 05/14/2022 1:05 PM EDT Pulse 75 05/14/2022 1:05 PM EDT Temperature - - Respiratory Rate - - Oxygen Saturation - - Inhaled Oxygen Concentration - - Weight 146 kg (321 lb 14.4 oz) 05/14/2022 1:05 P M EDT Height 157.5 cm (5' 2) 05/14/2022 1:05 PM EDT Body Mass Index 58.88 05/14/2022 1:05 PM EDT documented in this encounter Progress Notes * Glenn Cardoso PA - 05/14/2022 1:30 PM EDT Gastroenterology and Hepatology Follow Up Note Patient: Sherron Richter Sex: female : 1950 Provider: Glenn Cardoso PA-C PCP: Justino Lucia MD LIVER HISTORY Cirrhosis, 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 Ramon @ [facility], longstanding follow-up, [place] [facility] [place] -Liver biopsy 1990 in [place] (HCV dx) -HCV treated with Harvnoi x12 weeks in 2014 (RF of remote cocaine use, +FHx) -ETOH: would binge drink on weekends, sober several years since 2005 -Metabolic risks: obesity, HTN, HLD, prediabetes -No over GI bleeding history -Gastric varices in fundus on last EGD 05/2018, no EV -?HE, minimal elevation in ammonia and mild memory issues, improved May 2022, no treatment -FHx of hemochromatosis (HFE negative) -Following with [facility] since spring 2021 with good success in weight loss -HCC screening: CT 05/14/22 with no liver lesions, no ascites, normal spleen, splenorenal shunt -Last MELD-Na = 8 on 05/14/22 -Last AFP = 3.2 on 12/14/21 PROBLEM [...] ??? Prediabetes R73.03 ??? Insulin resistance E88.81 Interval History: Ms. Sherron Richter is 71 y.o. with a history of cirrhosis and portal hypertension suspected due to combination of hepatitis C (treated and cured) as well as CASAREZ/ROBER. We last met in December for her consultation visit. She follows up today with labs and CT scan prior to her appointment. She states that overall she is doing quite well. She believes her health is significantly improved in the last year. She has been following with the [facility] wellness center and has lost about 25 pounds and feels great. She has much less pain in her legs and is able to ambulate more and is hopingthat this will help with more weight loss. She is going to physical therapy locally as well. She states that her memory is much better and she denies any brain fog or confusion issues. She tried taking MiraLAX for couple of days and did not see any benefit and then stopped Kaopectate and states that her bowel movements normalized. She is scheduled next month for her EGD and colonoscopy. MEDICATIONS: Current Outpatient Medications Medication Sig Dispense Refill ??? semaglutide (Ozempic) 0.25 mg or 0.5 mg(2 mg/1.5 mL) Pen Injector Inject 0.5 mg subcutaneously once a week. 1.5 mL 3 ??? omeprazole (PriLOSEC) 40 mg Capsule, Delayed Release(E.C.) Take 40 mg by mouth daily. ??? gabapentin (Neurontin) 300 mg Capsule Take 300 mg by mouth 3 times daily. ??? lisinopriL (Zestril) 10 mg Tablet Take 5 mg by mouth daily. ??? spironolactone (Aldactone) 25 mg Tablet [...] ALLERGIES/ADR No Known Allergies PHYSICAL EXAMINATION: Vitals: 05/14/22 1305 BP: 145/71 BP Location ([facility]): Left arm Patient Position: Sitting BP Cuff Sizes: Adult (25-34 cm) Pulse: 75 Weight: (!) 146 kg (321 lb 14.4 oz) Height: 157.5 cm (5' 2) Body mass index is 58.88 kg/m??. Constitutional: Well appearing, appropriate, no acute [...] Recent Results (from the past 24 hour(s)) Prothrombin Time Result Value Ref Range PT 13.2 (H) 9.4 - 12.5 sec INR 1.2 Comprehensive metabolic panel (non-fasting) Result Value Ref Range Glucose Lvl 107 65 - 199 mg/dL BUN 13 8 - 18 mg/dL Creatinine 0.81 0.70 - 1.20 mg/dL Sodium 140 135 - 145 mmol/L Potassium 4.0 3.5 - 5.0 mmol/L Chloride 104 98 - 107 mmol/L CO2 27 22 - 31 mmol/L Anion Gap 9 5 - 15 mmol/L Calcium 9.4 8.5 - 10.5 mg/dL Total Protein 6.7 6.1 - 8.0 g/dL Albumin 3.9 3.2 - 5.2 g/dL AST 24 0 - 30 unit/L ALT 18 0 - 30 unit/L Alk Phos 60 35 - 105 unit/L Total Bilirubin 1.0 0.2 - 1.3 mg/dL Estimated GFR 78 >=60 mL/min/1.73 m?? Hemogram Result Value Ref Range WBC 6.3 4.0 - 9.5 x10(3)/mcL RBC 4.78 4.00 - 5.21 x10(6)/mcL Hemoglobin 14.5 11.7 - 15.5 g/dL Hematocrit 43.0 35.7 - 45.8 % MCV 90.0 82.6 - 94.4 fL MCH 30.3 27.1 - 32.0 pg MCHC 33.7 31.7 - 35.0 g/dL Platelets 247 145 - 357 x10(3)/mcL RDWSD 43.5 37.0 - 46.0 fL RDWCV 13.2 11.5 - 14.1 % MPV 10.2 7.6 - 12.9 fL nRBC % Auto 0.0 % nRBC Abs Auto 0.000 0.000 - 0.000 x10(3)/mcL Differential, Automated Result Value Ref Range Neutrophils % 65.2 % Neutr Abs (ANC) 4.09 1.70 - 6.10 x10(3)/mcL Lymphocytes % 21.3 % Lymphocytes Abs 1.3 0.9 - 3.2 x10(3)/mcL Monocytes % 10.0 % Monocyte Abs 0.6 0.3 - 0.9 x10(3)/mcL Eosinophils % 3.0 % Eosinophils Abs 0.2 0.0 - 0.4 x10(3)/mcL Basophils % 0.3 % Basophils Abs 0.0 0.0 - 0.1 x10(3)/mcL Immature Gran % 0.20 % Silvia Gran Abs 0.01 0.00 - 0.04 x10(3)/mcL MELD-Na score: 8 at 05/14/2022 7:58 AM MELD score: 8 at 05/14/2022 7:58 AM Calculated from: Serum Creatinine: 0.81 mg/dL (Using min of 1 mg/dL) at 05/14/2022 7:58 AM Serum Sodium: 140 mmol/L (Using max of 137 mmol/L) at 05/14/2022 7:58 AM Total Bilirubin: 1.0 mg/dL at 05/14/2022 7:58 AM INR(ratio): 1.2 at 05/14/2022 7:58 AM Age: 71 years Imaging: CT abdomen w contrast today: FINDINGS: ?? Lower chest: Normal. ?? Liver: Nodular contour. Normal size and attenuation without lesions. Bile ducts: Nondilated. Gallbladder: Surgically absent. Surgical clips present within the gallbladder fossa. Pancreas: Partial fatty replacement. No ductal dilatation. Spleen: Normal size. No lesions. Adrenal: Normal. Kidneys: Symmetric enhancement. No renal collecting system dilatation. Well-circumscribed hypoattenuating 4.4 cm right upper pole simple cyst. ?? Vasculature: No aneurysm. Gastric varices present. Left upper quadrant large caliber splenorenal shunt. Lymph nodes: No enlarged lymph nodes. Bowel: Nondilated, no wall thickening. Peritoneum and mesentery: No ascites, free air, or loculated fluid collection. No mesenteric inflammation. Abdominal wall: Moderate sized supraumbilical hernia containing fat and unobstructed transverse colon. 4 cm wide neck and 17 cm wide sac. No strangulation. ?? Osseous structures: No suspicious lesions. Moderate to severe degenerative changes of the thoracic and lumbar spine with vacuum disc phenomenon. ?? IMPRESSION ?? 1. Cirrhosis. No liver lesions. 2. Gastric varices and splenorenal shunt. 3. Moderate ventral hernia. ASSESSMENT & PLAN: Sherron Richter is a 71 y.o. 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 She has no known history of decompensation though she does have evidence of portal hypertension with gastric varices on prior EGD. She also has lower extremity edema but no reported history of ascites. At the moment, she is well compensated, with MELD score of 8. We reviewed her CT findings today which confirmed the presence of gastric varices as well as a splenorenal shunt. The splenorenal shunt may account for her previous reports of decreased memory although this has significantly proved today. For now, we will monitor her symptoms without any therapy though should have a low threshold to trial lactulose if she has recurrence of symptoms. Luckily, her bowel movements have normalized since last visit. She is scheduled next month for EGD/colonoscopy tofollow-up the varices as well as due for screening with her history of polyps. I am impressed with her improvement in weight loss [facility]. Maulik hopeful that with increased mobility PT that she will continue to lose eight and discussed with her that this will further improve her prognosis related to her liver disease. This may also be due in part to her recent addition of Ozempic which I recommend she continue as long as she tolerates it. Plan: -EGD/colonoscopy as planned for next month. If she is found to have large varices, we will likely switch her metoprolol to a nonselective beta-rafa. -Patient will monitor for signs of decreased memory, confusion, brain fog and low threshold to trial lactulose. -Continue maintaining alcohol sobriety indefinitely. -Continue follow-up with [facility] as planned. -Continue Ozempic. -Follow-up in 6 months with ultrasound and labs prior. Time spent reviewing records prior to this encounter: 5 minutes Time spent during encounter with patient including counselin minutes Time spent documenting encounter on date of service: 15 minutes Approximate total time devoted to this single encounter on date of service: 42 minutes Glenn Cardoso PA-C Section of Gastroenterology [place] [address] Cc: Justino Lucia MD @[email or web address]@ documented in this encounter Plan of Treatment Upcoming Encounters Date Type Department Care Team (Late st Contact Info) Description 07/22/2024 9:00 AM EST [place] [address] Ana Ho MD [facility] [place] [address] 07/22/2024 10:00 AM EST Laboratory Appointment Lab [address] [place] [phone] 07/22/2024 11:00 AM EST Office [place] [phone] Ana Ho MD [facility] [place] [address] 09/15/2024 10:00 AM EST TH Visit (TeleHealth) [place] [phone] Candy Clifford MD [facility] [place] [address] Scheduled Orders Name Type Priority Associated Diagnoses Orde r Schedule Hemoglobin A1c Lab Routine Prediabetes Expected: 11/11/2022 (Approximate), Expires: 05/13/2023 Scheduled Procedures Name Priority Associated Diagnoses Date/Ti me EGD, UPPER GI ENDOSCOPY (WRV U 2.09) Hepatic cirrhosis, unspecified hepatic cirrhosis type, unspecified whether ascites present documented as of this encounter Goals Goal Patient Goal Type Associated Problems Recent Progress Patient-Stated? Author movement Exercise On track(2021 11:16 AM EDT) No Pankaj Mcadams Note: Try gentle movement like chair yoga, t'ai chi and qigong. Health Email Marketing Intern will send hand-outs. Use resistance bands. Health Email Marketing Intern will request a set be mailed. Movement [...] and can't go back to sleep. Health Email Marketing Intern will send some to try. Tried apps but don't really like them as I like the quiet when going to sleep. [facility] 04/23 documented as of this encounter Results * (ABNORMAL) Prothrombin Time (01/01/2023 8:48 AM EDT) Prothrombin Time 13.1(H) 9.4 - 12.5 sec [facility] International Normalization Ratio 1.1 [facility] Comment: An INR <2.0 indicates [...] Resulting Agency Comment Spec In Lab Rea Sierra MD HEMATOLOGY ORDERABLE S [facility] [place] [address] * Comprehensive metabolic panel (non-fasting) (01/01/2023 8:48 AM EDT) Glucose 90 65 - 199 mg/dL [facility] Comment:Diabetes: >=200 mg/d L plus symptoms Blood Urea Nitrogen 12 8 - 18 mg/dL [facility] Creatinine 0.77 0.70 - 1.20 mg/dL [facility] Sodium 142 135 - 145 mmol/L [facility] Potassium 3.9 3.5 - 5.0 mmol/L [facility] Comment: Please note: ??Patients with WBC >100,000 may have falsely elevated Potassium levels. ??For accurate Potassium quantification in these patients send serum separator tube (gold top) for subsequent determinations. ??Contact the Clinical Chemistry Laboratory if there are any questions. Chloride 105 98 - 107 mmol/L [facility] Carbon Dioxide 29 22 - 31 mmol/L [facility] Anion Gap 8 5 - 15 mmol/L [facility] Calcium 9.2 8.5 - 10.5 mg/dL [facility] Protein, Total 6.8 6.1 - 8.0 g/dL [facility] Albumin 3.8 3.2 - 5.2 g/dL [facility] Aspartate Aminotransferase 28 0 - 30 unit/L [facility] Alanine Aminotransferase 16 0 - 30 unit/L [facility] Alkaline Phosphatase 84 35 - 105 unit/L [facility] Bilirubin, Total 1.0 0.2 - 1.3 mg/dL [facility] Est Glomerular Filtration Rate 82 >=60 mL/min/1. 73 m?? [facility] Comment: This patient's estimated GFR [...] Resulting Agency Comment Spec In Lab Rea Sierra MD CHEMISTRY ORDERABLES [facility] [place] [address] * US Abdomen Limited Hepatology Protocol (01/01/2023 [...] who have questions, please contact the health daycare worker that requested your imaging first. ?Tequila Gomes Ricarda Protein Specialist Electronically Signed Final Report ?? 01/01/2023 09:17 am Narrative 01/01/2023 9:18 AM EDT Abdominal ? (Signed Final 01/01/2023 09:17 am) PATIENT INFO: ID #: ? [id number] ?: ??[birth year] (72 yrs)(F) Name: ? SHERRON RICHTER ?Visit Date: 01/01/2023 08:14 am PERFORMED BY: Attending: ?Mireya GRACE, Tequila Longoria Performed By: ? Rupal Banks RDMS Referred By: ?REA SIERRA Location: ? [place] [facility]) [facility] Protocol - Abdominal ?[id number] Limited Survey Single Organ or Quadrant - [id number] INDICATIONS: CASAREZ/HCV/ETOH cirrhosis, screen for HCC, known [...] 01/01/2023 09:17 am) PATIENT INFO: ID #: [id number] : [birth year] (72 yrs)(F) Name: SHERRON RICHTER Visit Date: 01/01/2023 08:14 am PERFORMED BY: Attending: Tequila Gomes MD Performed By: Rupal Banks RDMS Referred By: REA SIERRA Location: [place] SERVICE(S) [facility]: [facility] - Hepatology Protocol - Abdominal [id number] Limited Survey Single Organ or Quadrant - [id number] INDICATIONS: CASAREZ/HCV/ETOH cirrhosis, screen for HCC, known [...] who have questions, please contact the health daycare worker that requested your imaging first. Tequila Gomes, E Protein Specialist Electronically Signed Final Report 01/01/2023 09:17 am Rea Sierra MD IMG GEN ORDERABLE S documented in this encounter Visit Diagnoses Diagnosis Hepatic cirrhosis, unspecified hepatic cirrhosis type, unspecified whether ascites present- Primary Portal hypertension History of hepatitis C Personal history of other infectious and parasitic disease NAFLD (nonalcoholic fatty liver disease) Other chronic nonalcoholic liver disease Prediabetes Other abnormal glucose Hepatic cirrhosis, unspecified hepatic cirrhosis type, unspecified whether ascites present documented in this encounter Care Teams Special Loan Officer Relationship Specialty Start Date End Date Justino Lucia MD PCP - General Family Medicine 10/04/21 documented as of this encounter
--- OUTSIDE RECORDS SUMMARY | 2024-07-07 13:39 | XMS_ITS | Encounter Summary ---
Author Organization [facility] [place] [address] Care Team Providers Care Medical Laboratory Assistant Name Role Phone Page, Aleida Lopez APRN Primary Care Provider [phone] Encounter Details Date Type Department Care Team (Latest Contact Info) Description 02/20/2018 Multidisciplinary Ca re Committee [place] [address] Karla Flores APRN [facility] [place] [address] Social History Tobacco Use Types Packs/Day Years [...] as of this encounter Progress Notes * Karla Flores - 02/20/2018 6:40 AM EDT BARIATRIC SURGERY PROGRAM CASE REVIEW Telma Richter is a 67 y.o. year-old female. Her primary care physician is Justino Lucia MD Bariatric Surgery Program introductory meeting attendance: + Evaluation by a member of the [facility] [place] previously: no Case presentation by: Dr Emma Luther Staff present at today's meeting: Aneta Oshea MD, Nanosystems Engineer, Don Laguna MD, Luz Aguiar MD, Alexandria Luther MD, Consuelo Calvin, MS RD, Karla Flores APRN, Nova Villegas, Cece Reilly MSN RN Reason for presentation: portal hypertension, gastric varices Patient Active Problem List Diagnosis Code ??? 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 Frequent PVCs I49.3 ??? SOB (shortness of breath) R06.02 ??? Edema of lower extremity R60.0 ??? Epistaxis R04.0 ??? Anxiety F41.9 ??? Depression F32.9 ??? Anemia D64.9 ??? Fatigue R53.83 ??? Osteopenia M85.80 ??? Hypoglycemia E16.2 ??? PSVT (paroxysmal supraventricular tachycardia) I47.1 ??? Cirrhosis K74.60 ??? HCV (hepatitis C virus) B19.20 ??? Asthma J45.909 ??? Hypertension I10 ??? Morbid obesity with BMI of 50.0-59.9, adult E66.01, Z68.43 Past Surgical History: Procedure Laterality Date ??? CARDIAC CATHERIZATION Plan of care: not a candidate due to gastric varices and portal hypertension, risks outweighs benefits. She could consider a second opinion at a bariatric center that has a liver transplant program, or referral by primary care physician to the [facility] [place] [facility]. Telma was advised of decision via phone. documented in this encounter Plan of Treatment Upcoming Encounters Date Type Department Care Team (Late st Contact Info) Description 07/22/2024 9:00 AM EST [place] [phone] Ana Ho MD [facility] [place] [address] 07/22/2024 10:00 AM EST Laboratory Appointment Lab [address] [place] [phone] 07/22/2024 11:00 AM EST Office [place] [address] Ana Ho MD [facility] [place] [address] 09/15/2024 10:00 AM EST TH Visit (TeleHealth) [place] [phone] Candy Clifford MD [facility] DR [facility] [address] Scheduled Procedures Name Priority Associated Diagnoses Date/Ti me EGD, UPPER GI ENDOSCOPY (WRV U 2.09) Hepatic cirrhosis, unspecified hepatic cirrhosis type, unspecified whether ascites present documented as of this encounter Visit Diagnoses Not on filedocumented in this encounter Care Teams Medical Laboratory Assistant Relationship Specialty Start Date End Date Aleida Alva APRN [address] [place] [address] PCP - General Family Medicine 05/02/17 10/03/21 documented as of this encounter
--- OUTSIDE RECORDS SUMMARY | 2024-07-07 13:39 | XMS_ITS | Encounter Summary ---
Author Organization [facility] [place] [address] Care Team Providers Care Food Service Order Clerk Name Role Phone Justino Lucia MD Primary Care Provider [phone] Reason for Visit * Reason Comments Medication Refill Encounter Details Date Type Department Care Team (Late st Contact Info) Description 03/29/2022 Refill Weight and Wellness at [address] [address] Candy Clifford MD [facility] DR [facility] [place] [address] Social History Tobacco Use Types Packs/Day Years [...] 07/22/2024 9:00 AM EST Appointment [place] [address] Ana Ho MD [facility] [place] [address] 07/22/2024 10:00 AM EST Laboratory Appointment Lab [address] [place] [phone] 07/22/2024 11:00 AM EST Office Visit [place] [address] Ana Ho MD [facility] [place] [address] 09/15/2024 10:00 AM EST TH Visit (TeleHealth) [place] [address] Candy Clifford MD [facility] DR [facility] [address] Scheduled Procedures Name Priority Associated Diagnoses Date/Ti me EGD, UPPER GI ENDOSCOPY (WRV U 2.09) Hepatic cirrhosis, unspecified hepatic cirrhosis type, unspecified whether ascites present documented as of this encounter Goals Goal Patient Goal Type Associated Problems Recent Progress Patient-Stated? Author movement Exercise On track(2021 11:16 AM EDT) No Pankaj Mcadams Note: Try gentle movement like chair yoga, t'ai chi and qigong. Health Grain Origination Specialist will send hand-outs. Use resistance bands. Health Grain Origination Specialist will request a set be mailed. [...] and can't go back to sleep. Health Grain Origination Specialist will send some to try. Tried apps but don't really like them as I like the quiet when going to sleep. [facility] 04/23 documented as of this encounter Visit Diagnoses Not on filedocumented in this encounter Care Teams Food Service Order Clerk Relationship Specialty Start Date End Date Justino Lucia MD PCP - General Family Medicine 10/04/21 documented as of this encounter
--- OUTSIDE RECORDS SUMMARY | 2024-07-07 13:39 | XMS_ITS | Encounter Summary ---
Author Organization [facility] Address [facility] [place] [address] Care Team Providers Care Assistive Technology Trainer Name Role Phone Justino Lucia MD Primary Care Provider [phone] Encounter Details Date Type Department Care Team (Late Contact Info) Description 02/28/2022 Telephone Weight and Wellness at [facility] [address] [place] [address] Claudia Marshall, ELENA Social History Tobacco Use [...] Telephone Encounter - Claudia Marshall CMA - 02/28/2022 4:06 PM EDT [facility] Production Supervisor Trainee Pre-telemedicine Visit Phone Note Telma Richter 1950 [] Patient was not reached Patient was reached and the following information was reviewed/obtained per protocol: [x] Confirmed patient name and date of [x] Confirmed ZOOM downloaded and functioning [] ZOOM appointment link sent if no MyDH [x] Phone number to be reached is: [phone] REVIEW: [x] Review of patient medications completed Have you started on any NEW medications? [x] No [] Yes: [x] Confirmed preferred pharmacy: [facility] [place] Rem[facility] Your provider might ask you what you ate the day prior to the visit Please weigh yourself before the appointment Pedi: Both parent and child need to be present for the visit documented in this encounter Plan of Treatment Upcoming Encounters Date Type Department Care Team (Late st Contact Info) Description 07/22/2024 9:00 AM EST Appointment [place] [phone] Ana Ho MD [facility] [place] [address] 07/22/2024 10:00 AM EST Laboratory Appointment Lab [address] [place] [address] 07/22/2024 11:00 AM EST Office Visit [place] [phone] Ana Ho MD [facility] [place] [address] 09/15/2024 10:00 AM EST TH Visit (TeleHealth) Weight [place] [phone] Candy Clifford MD [facility] DR [facility] [place] [address] Scheduled Procedures Name Priority Associated Diagnoses Date/Ti me EGD, UPPER GI ENDOSCOPY (WRV U 2.09) Hepatic cirrhosis, unspecified hepatic cirrhosis type, unspecified whether ascites present documented as of this encounter Goals Goal Patient Goal Type Associated Problems Recent Progress Patient-Stated? Author movement Exercise On track(2021 11:16 AM EDT) No Pankaj Mcadams Note: Try gentle movement like chair yoga, t'ai chi and qigong. Health Power System Engineer will send hand-outs. Use resistance bands. Health Power System Engineer will request a set be mailed. Nutrition [...] for sample meal ideas in the USPS [facility] Keep food log until you are seen by the dieititian. Record everything you eat or drink, include time eaten and any emotional changes that are significant. documented as of this encounter Visit Diagnoses Not on filedocumented in this encounter Care Teams Assistive Technology Trainer Relationship Specialty Start Date End Date Justino Lucia MD PCP - General Family Medicine 10/04/21 documented as of this encounter
--- OUTSIDE RECORDS SUMMARY | 2024-07-07 13:39 | XMS_ITS | Encounter Summary ---
[place] [address] Care Team Providers Care Jumpbasting Armhole Baster Name Role Phone Justino Lucia MD Primary Care Provider [phone] Reason for Visit * Reason Onset Date Comments Appointment 04/23/2022 Encounter Details Date Type Department Care Team (Late Contact Info) Description 04/23/2022 Telephone Weight and Wellness at [address] [phone] Sade Aponte V Appointment Social History Tobacco Use Types Packs/Day Years [...] encounter Miscellaneous Notes * Telephone Encounter - Sade Aponte V - 04/23/2022 9:51 AM EDT Return in about 6 weeks (around 06/04/2022) for In person or Zoom, With me documented in this encounter Plan of Treatment Upcoming Encounters Date Type Department Care Team (Late st Contact Info) Description 07/22/2024 9:00 AM EST [place] [phone] Ana Ho MD [facility] [place]STR[place] [address] 07/22/2024 10:00 AM EST Laboratory Appointment Lab [address] [place] [phone] 07/22/2024 11:00 AM EST Office [place] [phone] Ana Ho MD [facility] [place] [address] 09/15/2024 10:00 AM EST TH Visit (TeleHealth) [place] [address] Candy Clifford MD [facility] DR [facility] [place] [address] Scheduled Procedures Name Priority Associated Diagnoses Date/Ti me EGD, UPPER GI ENDOSCOPY (WRV U 2.09) Hepatic cirrhosis, unspecified hepatic cirrhosis type, unspecified whether ascites present documented as of this encounter Goals Goal Patient Goal Type Associated Problems Recent Progress Patient-Stated? Author movement Exercise On track(2021 11:16 AM EDT) No Pankaj Mcadams Note: Try gentle movement like chair yoga, t'ai chi and qigong. Health Returning Officer will send hand-outs. Use resistance bands. Health Returning Officer will request a set be mailed. Movement [...] emotional changes that are significant. relaxation/sleep Lifestyle Pnakaj Russ Note: Try some meditation/relaxation apps when I wake in the night and can't go back to sleep. Health Returning Officer will send some to try. Tried apps but don't really like them as I like the quiet when going to sleep. [facility] 04/23 documented as of this encounter Visit Diagnoses Not on filedocumented in this encounter Care Teams Jumpbasting Armhole Baster Relationship Specialty Start Date End Date Justino Lucia MD PCP - General Family Medicine 10/04/21 documented as of this encounter
--- OUTSIDE RECORDS SUMMARY | 2024-07-07 13:39 | XMS_ITS | Encounter Summary ---
Author Organization [facility] [place] [address] Care Team Providers Care Universal Grinder Tool Name Role Phone Justino Lucia MD Primary Care Provider Encounter Details Date Type Department Care Team (Late st Contact Info) Description 02/06/2022 External Results Weight and Wellness at [facility] [address] [place] [address] Alyce Santos, RN Social History Tobacco Use Types Packs/Day [...] 07/22/2024 9:00 AM EST Appointment [place] [phone] Ana Ho MD [facility] [place] [address] 07/22/2024 10:00 AM EST Laboratory Appointment Lab [address] [place] [phone] 07/22/2024 11:00 AM EST Office Visit [place] [address] Ana Ho MD [facility] [place] [address] 09/15/2024 10:00 AM EST TH Visit (TeleHealth) Weight [place] [phone] Candy Clifford MD [facility] DR [facility] [place] [address] Scheduled Procedures Name Priority Associated Diagnoses Date/Ti me EGD, UPPER GI ENDOSCOPY (WRV U 2.09) Hepatic cirrhosis, unspecified hepatic cirrhosis type, unspecified whether ascites present documented as of this encounter Goals Goal Patient Goal Type Associated Problems Recent Progress Patient-Stated? Author Nutrition Lifestyle No Candy Clifford MD Note: Nutrition Goals updated today: 12/11/22 TF 1. Focus on reaching adequate protein intake - aim for 60-80 grams (handout attached in after visit summary) 2. Consider the 3 eating events per day to be an opportunity to start with protein (cottage cheese, ghanaian yogurt, protein smoothies, chicken or chicken salad [...] for sample meal [facility] Keep food log until you are seen by the dieititian. Record everything you eat or drink, include time eaten and any emotional changes that are significant. documented as of this encounter Procedures Procedure Name Priority Date/Time Associated Diagnosis Comments [facility] EXTERNAL RESULT PANEL Routine 01/25/2022 documented in this encounter Results * (ABNORMAL) [facility] External Results (01/25/2022) Cholesterol, Total 110(L) Triglyceride 68 HDL Cholesterol 37(L) LDL Cholesterol 59 Hemoglobin A1c 5.5 Vitamin D Total 25 OH 40.1 Thyroid Stimulating Hormone 2.02 Vitamin B12 1,091(H) Ferritin 22.7 Insulin 28 01/25/2022 Historical Provider POINT OF CARE CAROL T ORDERABLES documented in this encounter Visit Diagnoses Not on filedocumented in this encounter Care Teams Universal Grinder Tool Relationship Specialty Start Date End Date Justino Lucia MD PCP - General Family Medicine 10/04/21 documented as of this encounter
--- OUTSIDE RECORDS SUMMARY | 2024-07-07 13:39 | XMS_ITS | Encounter Summary ---
Author Organization [facility] [place] [address] Care Team Providers Care Project/Production Manager Imaging Name Role Phone Justino Lucia MD Primary Care Provider [phone] Reason for Visit * Reason Onset Date Comments Medication Refill 03/30/2022 Encounter Details Date Type Department Care Team (Late st Contact Info) Description 03/30/2022 Refill Weight and Wellness at [facility] [address] [place] [address] Claudia Marshall, [facility] Social History Tobacco Use Types Packs/Day [...] 07/22/2024 9:00 AM EST Appointment [place] [phone] [facility] [place] [address] 07/22/2024 10:00 AM EST Laboratory Appointment Lab [address] [place] [phone] 07/22/2024 11:00 AM EST Office Visit [place] [address] [facility] [place] [address] 09/15/2024 10:00 AM EST TH Visit (TeleHealth) [place] [address] [facility] DR [facility] [address] Scheduled Procedures Name Priority Associated Diagnoses Date/Ti [...] yoga, t'ai chi and qigong. Health Executive Pastry Chef will send hand-outs. Use resistance bands. Health Executive Pastry Chef will request a set be mailed. Nutrition Lifestyle No Candy Clifford MD Note: Nutrition Goals updated today: 12/11/22 TF 1. Focus on reaching adequate protein intake - aim for 60-80 grams (handout attached in after visit summary) 2. Consider the 3 eating events per day to be an opportunity to start with protein (cottage cheese, english yogurt, protein smoothies, chicken or chicken salad [...] for sample meal ideas in the USPS [facility] Keep food log until you are seen by the dieititian. Record everything you eat or drink, include time eaten and any emotional changes that are significant. relaxation/sleep Lifestyle Pankaj Russ Note: Try some meditation/relaxation apps when I wake in the night and can't go back to sleep. Health Executive Pastry Chef will send some to try. Tried apps but don't really like them as I like the quiet when going to sleep. [facility] 04/23 documented as of this encounter Visit Diagnoses Not on filedocumented in this encounter Care Teams Project/Production Manager Imaging Relationship Specialty Start Date End Date Justino Lucia MD PCP - General Family Medicine 10/04/21 documented as of this encounter
--- OUTSIDE RECORDS SUMMARY | 2024-07-07 13:39 | XMS_ITS | Encounter Summary ---
[place] [address] Care Team Providers Care Racing Mechanic Name Role Phone Justino Lucia MD Primary Care Provider [phone] Reason for Referral * Consultation (Routine) - Closed Specialty Diagnoses / Procedures Referred By Marcelo tucker Referred To Contact Weight and Wellness Diagnoses Hepatic cirrhosis, unspecified hepatic cirrhosis type, unspecified whether ascites present Class 3 severe obesity due to excess calories with serious comorbidity and body mass index (BMI) of 60.0 to 69.9 in adult Glenn Cardoso PA [address] [place] [address] [facility] [address] [place] [address] Referral ID Status Reason Start Date Expiration Date V isits Requested Visits Authorized [id number] Closed Consult, Test & Treat 12/14/2021 12/14/2022 1 1 Encounter Details Date Type Department Care Team (Late st Contact Info) Description 12/14/2021 Orders [place] [address] Glenn Cardoso PA [address] [place] [address] Hepatic cirrhosis, unspecified hepatic cirrhosis type, unspecified whether ascites present; Class 3 severe obesity due to excess calories with serious comorbidity and body mass index (BMI) of 60.0 to 69.9 in adult; History of colon polyps; Screening for colon cancer Social History Tobacco Use Types Packs/Day Years [...] 07/22/2024 9:00 AM EST Appointment Ultrasound at [place] [phone] Ana Ho MD [facility] GASTROENTEROLOGY [place] [address] 07/22/2024 10:00 AM EST Laboratory Appointment Lab [address] [phone] 07/22/2024 11:00 AM EST Office Visit Gastroenterology at [place] [phone] Ana Ho MD [facility] [place] [address] 09/15/2024 10:00 AM EST TH Visit (TeleHealth) [place] [address] Candy Clifford MD [facility] DR [facility] [address] Scheduled Orders Name Type Priority Associated Diagnoses Orde r Schedule ENDOSCOPY CASE REQUEST: EGD, UPPER GI ENDOSCOPY, COLONOSCOPY, DIAGNOSTIC Procedures Routine Hepatic cirrhosis, unspecified hepatic cirrhosis type, unspecified whether ascites present History of colon polyps Screening for colon cancer Ordered: 12/14/2021 Scheduled Procedures Name Priority Associated Diagnoses Date/Ti me EGD, UPPER GI ENDOSCOPY (WRV U 2.09) Hepatic cirrhosis, unspecified hepatic cirrhosis type, unspecified whether ascites present Scheduled Referrals Name Type Priority Associated Diagnoses Orde r Schedule Referral to [facility] Outpatient Referral Routine Hepatic cirrhosis, unspecified hepatic cirrhosis type, unspecified whether ascites present Class 3 severe obesity due to excess calories with serious comorbidity and body mass index (BMI) of 60.0 to 69.9 in adult Ordered: 12/14/2021 documented as of this encounter Visit Diagnoses Diagnosis Hepatic cirrhosis, unspecified hepatic cirrhosis type, unspecified whether ascites present Class 3 severe obesity due to excess calories with serious comorbidity and body mass index (BMI) of 60.0 to 69.9 in adult History of colon polyps Personal history of colonic polyps Screening for colon cancer Special screening for malignant neoplasms, colon documented in this encounter Care Teams Racing Mechanic Relationship Specialty Start Date End Date Justino Lucia MD PCP - General Family Medicine 10/04/21 documented as of this encounter
--- OUTSIDE RECORDS SUMMARY | 2024-07-07 13:39 | XMS_ITS | Encounter Summary ---
Author Organization [facility] [place] [address] Care Team Providers Care Metallurgy Teacher Name Role Phone Justino Lucia MD Primary Care Provider [phone] Encounter Details Date Type Department Care Team (Late Contact Info) Description 03/12/2022 Telephone [place] [address] Amaya Pak Social History Tobacco Use Types Packs/Day Years [...] encounter Miscellaneous Notes * Telephone Encounter - Amaya Pak - 03/12/2022 11:24 AM EDT Called pt to schedule May follow up with Domingo Cardoso, with CT scan and labs prior (also need to review radiology screening questions prior to scheduling). Left VM. documented in this encounter Plan of Treatment Upcoming Encounters Date Type Department Care Team (Late Contact Info) Description 07/22/2024 9:00 AM EST Appointment [place] [phone] [facility] [place] [address] 07/22/2024 10:00 AM EST Laboratory Appointment Lab [address] [place] [phone] 07/22/2024 11:00 AM EST Office Visit [place] [address] [facility] [place] [address] 09/15/2024 10:00 AM EST TH Visit (TeleHealth) [place] [phone] [facility] DR [facility] [address] Scheduled Procedures Name Priority Associated Diagnoses Date/Ti [...] yoga, t'ai chi and qigong. Health Supervisor Sawing And Assembly will send hand-outs. Use resistance bands. Health Supervisor Sawing And Assembly will request a set be mailed. Nutrition Lifestyle No Candy Clifford MD Note: Nutrition Goals updated today: 12/11/22 TF 1. Focus on reaching adequate protein intake - aim for 60-80 grams (handout attached in after visit summary) 2. Consider the 3 eating events per day to be an opportunity to start with protein (cottage cheese, macedonian yogurt, protein smoothies, chicken or chicken salad [...] on filedocumented in this encounter Care Teams Metallurgy Teacher Relationship Specialty Start Date End Date Justino Lucia MD PCP - General Family Medicine 10/04/21 documented as of this encounter
--- OUTSIDE RECORDS SUMMARY | 2024-07-07 13:39 | XMS_ITS | Encounter Summary ---
Author Organization [facility] [place] [address] Care Team Providers Care Cream Dipper Name Role Phone Justino Lucia MD Primary Care Provider [phone] Encounter Details Date Type Department Care Team (Late st Contact Info) Description 01/22/2022 Orders [place] [phone] Glenn Cardoso, [place] [address] [place] [address] [place] [address] Family history of hemochromatosis Social History Tobacco Use Types Packs/Day Years [...] 07/22/2024 9:00 AM EST [place] [phone] Ana Ho MD [facility] [place] [address] 07/22/2024 10:00 AM EST Laboratory Appointment Lab [address] [place] [address] 07/22/2024 11:00 AM EST Office [place] [phone] Ana Ho MD [facility] [place] [address] 09/15/2024 10:00 AM EST TH Visit (TeleHealth) [place] [address] Candy Clifford MD [facility] DR [facility] [place] [address] Scheduled Procedures Name Priority Associated Diagnoses Date/Ti [...] opportunity to start with protein (cottage cheese, mozambican yogurt, protein smoothies, chicken or chicken salad [...] as of this encounter Visit Diagnoses Diagnosis Family history of hemochromatosis Family history of other endocrine and metabolic diseases documented in this encounter Care Teams Cream Dipper Relationship Specialty Start Date End Date Justino Lucia MD PCP - General Family Medicine 10/04/21 documented as of this encounter
--- OUTSIDE RECORDS SUMMARY | 2024-07-07 13:39 | XMS_ITS | Encounter Summary ---
Author Organization [facility] Address [facility] [place] [address] Care Team Providers Care Teacher Instrumental Name Role Phone Justino Lucia MD Primary Care Provider [phone] Encounter Details Date Type Department Care Team (Latest Contact Info) Description 03/19/2022 3:00 PM EDT TH Visit (TeleHealth) Weight and Wellness at [address] [address] Pankaj Mcadams Class 3 severe obesity due [...] Instructions * Patient Instructions* Pankaj Mcadams - 03/19/2022 3:00 PM EDT It was good to talk with you today Telma. I'm glad to hear that you are happy with your weight lossand the changes you have made. I'm also glad that physical therapy is helping you feel better. I'llsend you the information for links and apps to some meditation/relaxation exercises that yo might find helpful when you wake up in the night. I look forward to hearing if any of the exercises work out for you. Be well, Pankaj Mcadams Health Learning And Development Administrator documented in this encounter Progress Notes * Pankaj Mcadams - 03/19/2022 3:00 PM EDT Telma Richter is here today at the request of Dr. Clifford for lifestyle coaching for weight control and overall health. FOLLOW UP VISIT 1. Clarify/revisit BIG WHY: feel and move better, less pain 2. Assess/review Strengths: knowledge 3. Review Healthy habits guidelines for exercise, sleep, and stress- see below 4. Teach SMART goals and practice setting one(connect to BIG WHY, pillars). Review specific goals if any from provider Goals ??? movement Try gentle movement like chair yoga, t'ai chi and qigong. Health Learning And Development Administrator will send hand-outs. Use resistance bands. Health Learning And Development Administrator will request a set be mailed. ??? Nutrition Keep food log until you are seen by the dieititian. Record everything you eat or drink, include time eaten and any emotional changes that are significant. Exercise PT twice a week, going well, legs are feeling better, back still bothers me a lot, recumbent bike for 10 min twice a week is also helping Sleep Sleep okay but wake up once or twice and have a hard time falling back asleep. Will try listening to meditations Stress Managing okay, meditation sounds helpful Self-monitoring What are you doing now? If no personal accountability process, what can you add? [x]Food log: [] daily [x] intermittent []Weigh-ins: [] daily [] weekly [x]Exercise log [x]Gratitude journal []Other: Food Behaviors (optional): Eating a good breakfast, sometimes miss lunch, usually have 2 meals a day Future follow-up with health assistant women's basketball coach will address identified areas of concern: [...] increasing mindfulness throughout the day. Your health assistant women's basketball coach is well-equipped to guide you to find something to look forward to everyday. Eating behaviors: many people benefit from restricting the hours in which they eat. You can choose an eating window of 8-12 hours to start. Make a pact with yourself that you will not take in anything with caloric content outside this window. Your air force senior officer may make further recommendations documented in this encounter Plan of Treatment Upcoming Encounters Date Type Department Care Team (Late st Contact Info) Description 07/22/2024 9:00 AM EST [place] [address] Ana Ho MD [facility] [place] [address] 07/22/2024 10:00 AM EST Laboratory Appointment Lab [address] [place] [phone] 07/22/2024 11:00 AM EST Office [place] [address] Ana Ho MD [facility] GASTROENTEROLOGY [place], [place] [id number] 09/15/2024 10:00 AM EST TH Visit (TeleHealth) [place] [address] Candy Clifford MD [facility] DR [facility] [address] Scheduled Procedures Name Priority Associated Diagnoses Date/Ti [...] yoga, t'ai chi and qigong. Health Learning And Development Administrator will send hand-outs. Use resistance bands. Health Learning And Development Administrator will request a set be mailed. Nutrition Lifestyle No Candy Clifford MD Note: Nutrition Goals updated today: 12/11/22 TF 1. Focus on reaching adequate protein intake - aim for 60-80 grams (handout attached in after visit summary) 2. Consider the 3 eating events per day to be an opportunity to start with protein (cottage cheese, yi yogurt, protein smoothies, chicken or chicken salad [...] [facility] Keep food log until you are seen by the dieititian. Record everything you eat or drink, include time eaten and any emotional changes that are significant. relaxation/sleep Lifestyle No Pankaj Mcadams Note: Try some meditation/relaxation apps when I wake in the night and can't go back to sleep. Health Learning And Development Administrator will send some to try. Tried apps but don't really like them as I like the quiet when going to sleep. [facility] WITH [facility] 04/23 documented as of this encounter Visit Diagnoses Diagnosis Class 3 severe obesity due to excess calories with serious comorbidity and body mass index (BMI) of 60.0 to 69.9 in adult documented in this encounter Care Teams Teacher Instrumental Relationship Specialty Start Date End Date Justino Lucia MD PCP - General Family Medicine 10/04/21 documented as of this encounter
--- OUTSIDE RECORDS SUMMARY | 2024-07-07 13:39 | XMS_ITS | Encounter Summary ---
Author Organization [facility] Address [facility] [place] [address] Care Team Providers Care White Metal Caster Name Role Phone Justino Lucia MD Primary Care Provider [phone] Encounter Details Date Type Department Care Team (Late st Contact Info) Description 03/01/2022 12:00 PM EDT TH Visit (TeleHealth) Weight and Wellness at [facility] [address] [place] [phone] Candy Clifford MD [facility] DR [facility] [address] Class 3 severe obesity due to excess calories with serious comorbidity and body mass index (BMI) of 60.0 to 69.9 in adult; Hyperlipidemia, unspecified hyperlipidemia type; Prediabetes; Hypertension, unspecified type; Insulin resistance Social History Tobacco Use Types [...] - Inhaled Oxygen Concentration - - Weight 152 kg (335 lb) 03/01/2022 12:15 PM EDT P t reported Height - - Body Mass Index 61.27 01/18/2022 1:10 PM EDT documented in this encounter Patient Instructions * Patient Instructions* Candy Clifford MD - 03/04/2022 9:52 PM EDT Great to see you Telma. Here is info on the medication we will try to get - Ozempic (semaglutide). Let me know how you are doing on the medication. See you in April! Incretins/GLP 1 Receptor Agonists Brand (generic) Names Victoza or Saxenda (liraglutide), Ozempic or Wegovy (semaglutide), Rybelsus (semaglutide oral), Trulicity (dulaglutide) Saxenda and Wegovy are the only incretins that are FDA approved for treatment of obesity. DOSING Saxenda/Victoza DAILY INJECTION Initially: 0.6mg SC QD Increase by 0.6 mg every week Saxenda's highest dose is 3.0mg daily VIctoza is only up to 1.8mg daily for diabetes. Wegovy/Ozempic. WEEKLY INJECTION. Initially: 0.25mg weekly x 4 weeks Increase every 4 weeks Wegovy's highest dose is 2.4mg weekly (0.25, 0.5, 1.0, 1.7, 2.4) Ozempic is only up to 1.0mg Trulicity. WEEKLY INJECTION Not FDA approved for obesity Rybelsus. PO DAILY Initial 3mg x 4 weeks Can increase to 7 mg x 4 weeks Max dose 14 mg How they work: Increase insulin sensitivity Decrease appetite Slow movement of food through the stomach making you feel núñez sooner and longer. When not to use: Family history of medullary thyroid cancer Use cautiously if you have had a history of pancreatitis Other medications For patients with diabetes on insulin: You will likely need to reduce your insulin use when you start this medication, depending on your hemoglobin A1c Common Side Effects (not comprehensive) Most commonly gastrointestinal including but not limited to diarrhea, nausea, taste changes, acid reflux. These side effects may improve after you are on the medication for a few weeks. These side effects are less likely with once weekly and oral dosing What you can do EAT SLOWLY and stop when you feel full. This prevents feeling badly after meals. Starting this medication You must increase the dose slowly. You will have more severe side effects if you start on a high dose. Your doctor will start you at a low dose and prescribe slow titration, increasing the dose everyweek or month. Follow your provider's instructions. If you ever stop this medication for a period of time (one week or more) on purpose or by accident,you will need to begin taking it again at the initial starting dose which may require a new prescription. Monitoring If you do not achieve 5% weight loss at 12 weeks, we will increase the dose or try a different medication Uses Diabetes, weight loss Online information The site below discusses incretins with respect to Insulin resistant, aka Type 2, diabetes. Becauseobesity is often a disease of insulin resistance, the medications help those suffering with obesityin the same way that they help diabetics. https://www.diabeteseducator.org/practice/practice-tools/cmixgbex-joybljaqmg-amq ls/ugw-2-eaaeldyhv https://www.diabeteseducator.org/docs/default-source/practice/educator-tools/glp -1-medications/understanding_glp_final.pdf?sfvrsn=2 The following informational sheet will provide instruction for how to store and inject the injectable forms of incretins. https://www.diabeteseducator.org/practice/practice-tools/okvbwspj-ydhnfqgiyp-dse ls/tfg-7-ebzzlalpq documented in this encounter Progress Notes * Candy Clifford MD - 03/01/2022 12:00 PM EDTSummary: 2nd THV with [facility] Patient Name: Telma Richter Date of : 1950 Age: 71 y.o. Justino Lucia MD Thank you for referring Telma Richter [facility] the [facility]. I saw her for a follow-upvisit today, 03/04/22. Please see changes to care as documented in the assessment and plan. CHIEF COMPLAINT: F/u for treatment of WHO Class 3 / EOSS Stage 2 Obesity defined by initial BMI and comorbidities:HTN, Hyperlipidemia and Vitamin D deficiency. GERD. OA. This is Visit #2 [facility] visit for this 71 y.o. patient. Weight gain due to: Unclear - sits at home; notes gaining weight when she moved here from [place] to take care of her dad about 10 years ago. Multiple deaths in the family in the same time frame. Initial weight 01/18/22: 335 lbs 03/01/2022, 335 lbs (no change) [facility] Team: Lacey Martino RD and Pankaj Mcadams, Health Laboratory Analyst HPI Did not tolerate Metformin XR 500 mg x 2 pills, terrible stomach cramps so stopped. Needs a CT per GI/liver. Started PT at [facility] - 2x a week Limited snacking, just not that hungry Daily Routine (new in bold) Time to Bed? 8 PM Time to Sleep? 10 PM - watch TV When do you wake? 5 AM, gets OOB at 8 AM - not hungry, not really ever hungry Eating episode #1 8 AM - cup of tea +/- eggs/toast - sometimes eats - yesterday fisher/eggs/homefries and toast Eating episode #2 12 PM - no longer having meals on wheels, sometimes not eating, sometimes cottagecheese and fruit - yesterday pear and berries Eating episode #3 5-6 PM - steak/potato, chicken/rice - once and a while doesn't eat dinner - cottage cheese/fiber one bar/dried apricots ?? Snacking? Around 4-5 pm - sometimes fruit and vegy OR pretzels in between breakfast/lunch - not very often - currently no snacks in the house, had protein bar yesterday After dinner eating? Not usually, jello every now and then Eating before bed IN ORDER to sleep? NO ?? What do you drink? Water, raspberry/blackberry tea with honey AOM: Currently taking none AOM HX: Metformin XR - did [...] []Surgery []Culinary []ACT []Monthly Lifestyle Classes Discussion 03/04/22: Pathways, Medication options with r/b, specifically GLP-1 WW PATHWAY - ADULT 01/18/2022 Obesity Medicine Activate Goals ??? movement Try gentle movement like chair yoga, t'ai chi and qigong. Health Laboratory Analyst will send hand-outs. Use resistance bands. Health Laboratory Analyst will request a set be mailed. ??? Nutrition Keep food log until you are seen by the dieititian. Record everything you eat or drink, include time eaten and any emotional changes that are significant. VITAL SIGNS: Vitals: 03/01/22 1215 Weight: (!) 152 kg (335 lb) Body mass index is 61.27 kg/m??. PHYSICAL EXAM: Gen: Alert and appropriate, [...] for: GLUCFASTING Lab Results Component Value Date [id number] 1,091 (H) 01/25/2022 25-OH Vit D Total [...] deficiency. GERD. OA. Referrals pending: Dietitian, Health Laboratory Analyst AOM: Cannot tolerate metformin, will try for semaglutide. Diagnoses and all orders for this visit: Class 3 severe obesity due to excess calories with serious comorbidity and body mass index (BMI) of60.0 to 69.9 in adult Hyperlipidemia, unspecified hyperlipidemia type Prediabetes Hypertension, unspecified type Insulin resistance Other orders - semaglutide (Ozempic) 0.25 mg or 0.5 mg(2 mg/1.5 mL) Pen Injector; Inject 0.25 mg subcutaneously once a week for 28 days, THEN 0.5 mg once a week. No orders of the defined types were placed in this encounter. Return in about 6 weeks (around 04/12/2022) for In person or Zoom, With GINNY dooley. 3 min chart review 30 min [id number] Visit time 5 min Documentation time I [...] 07/22/2024 9:00 AM [place] [phone] Ana Ho MD [facility] [place] [address] 07/22/2024 10:00 AM EST Laboratory Appointment Lab [address] [place] [phone] 07/22/2024 11:00 AM EST Office [place] [phone] Ana Ho MD [facility] [place] [address] 09/15/2024 10:00 AM EST TH Visit (TeleHealth) [place] [address] Candy Clifford MD [facility] DR [facility] [address] Scheduled Procedures Name Priority Associated Diagnoses Date/Ti me EGD, UPPER GI ENDOSCOPY (WRV U 2.09) Hepatic cirrhosis, unspecified hepatic cirrhosis type, unspecified whether ascites present documented as of this encounter Goals Goal Patient Goal Type Associated Problems Recent Progress Patient-Stated? Author movement Exercise On track(2021 11:16 AM EDT) Pankaj Russ Note: Try gentle movement like chair yoga, t'ai chi and qigong. Health Laboratory Analyst will send hand-outs. Use resistance bands. Health Laboratory Analyst will request a set be mailed. Nutrition Lifestyle Candy Centeno MD Note: Nutrition [...] for sample meal ideas in the USPS [facility] Keep food log until [...] unspecified type Insulin resistance Dysmetabolic Syndrome X documented in this encounter Care Teams White Metal Caster Relationship Specialty Start Date End Date Justino Lucia MD PCP - General Family Medicine 10/04/21 documented as of this encounter
--- OUTSIDE RECORDS SUMMARY | 2024-07-07 13:39 | XMS_ITS | Encounter Summary ---
Author Organization [facility] [address] Care Team Providers Care Manager Clinical Research Name Role Phone Page, Aleida Lopez APRN Primary Care Provider [phone] Encounter Details Date Type Department Care Team (Late st Contact Info) Description 05/01/2017 2:00 PM EDT Interpretation Only [address] [address] Jaswant Teresa Jr., MD [address] [place] [address] Dyspnea, unspecified type; Pedal edema Social History Tobacco Use Types Packs/Day Years [...] 07/22/2024 9:00 AM [place] [address] Ana Ho MD [facility] [place] [address] 07/22/2024 10:00 AM EST Laboratory Appointment Lab [address] [place] [address] 07/22/2024 11:00 AM EST Office [place] [address] Ana Ho MD [facility] [place] [address] 09/15/2024 10:00 AM EST TH Visit (TeleHealth) [place] [address] Candy Clifford MD [facility] DR [facility] [address] Scheduled Procedures Name Priority Associated Diagnoses Date/Ti me EGD, UPPER GI ENDOSCOPY (WRV U 2.09) Hepatic cirrhosis, unspecified hepatic cirrhosis type, unspecified whether ascites present documented as of this encounter Procedures Procedure Name Priority Date/Time Associated Diagnosis Comments ECHO SCAN (SCAN) 05/02/2017 12:0 0 AM EDT documented in this encounter Results * SCAN DOC: ECHO (05/02/2017 12:00 AM EDT) Anatomical Region Laterality Modality Cardiac Other Narrative 05/02/2017 12:00 AM EDT Ordered by an unspecified provider. Scanning Provider MEDIA MGR SCAN EXT O RDR/RSLT documented in this encounter Visit Diagnoses Diagnosis Dyspnea, unspecified type Pedal edema Edema documented in this encounter Care Teams Manager Clinical Research Relationship Specialty Start Date End Date Aleida Alva APRN [address] [place] [address] PCP - General Family Medicine 05/02/17 10/03/21 documented as of this encounter
--- OUTSIDE RECORDS SUMMARY | 2024-07-07 13:39 | XMS_ITS | Encounter Summary ---
Author Organization [facility] Address [facility] [place] [address] Care Team Providers Care Mechanical Specialist Name Role Phone Justino Lucia MD Primary Care Provider [phone] Reason for Visit * Consultation (Routine) - Closed Specialty Diagnoses / Procedures Referred By Marcelo tucker Referred To Contact Weight and Wellness Diagnoses Hepatic cirrhosis, unspecified hepatic cirrhosis type, unspecified whether ascites present Class 3 severe obesity due to excess calories with serious comorbidity and body mass index (BMI) of 60.0 to 69.9 in adult Glenn Cardoso, [place] [address] [place] [address] [place] [address] [facility] [address] [place] [id number] Referral ID Status Reason Start Date Expiration Date V isits Requested Visits Authorized [id number] Closed Consult, Test & Treat 12/14/2021 12/14/2022 1 1 Encounter Details Date Type Department Care Team (Late st Contact Info) Description 01/18/2022 1:00 PM EDT TH Visit (TeleHealth) Weight and Wellness at [address] [phone] Candy Clifford MD [facility] DR [facility] [address] Class 3 severe obesity with serious comorbidity and body mass index (BMI) of 60.0 to 69.9 in adult, unspecified obesity type; Hyperlipidemia, unspecified hyperlipidemia type; Prediabetes; Hypertension, unspecified [...] - - Weight 152 kg (335 lb) 01/18/2022 1:10 PM EDT Pt reported from MD office today Height 157.5 cm (5' 2) 01/18/2022 1:10 PM EDT Body Mass Index 61.27 01/18/2022 1:10 PM EDT documented in this encounter Patient Instructions * Patient Instructions* Candy Clifford MD - 01/18/2022 4:49 PM EDT Images from the original note were not included. Armando Hollis, It was a pleasure seeing you today, and I look forward to being an adviser in your weight loss journey. Here is the plan from today: Please obtain labs FASTING and I will message you with results and any necessary steps. Speak with Dr. Lucia about referral to PT Message me about the medication you have for prediabetes 4. I will see you in 4 weeks! I have made referrals for the following: [x]Nutrition [x]Health football coach OUR SEMICONDUCTOR LAB TECHNICIAN WILL CALL YOU TO SCHEDULE THESE VISITS. If you do not hear from us within a week, please call us at: [phone]. Below is some additional information/resources on this disease process: As we discussed, obesity is a complicated, multifactorial disease state, and each individual responds differently to the variety of treatments we can offer you. No one thing works for everyone, but we tailor our treatments based on the pillars of obesity treatment as outlined by the Obesity Medicine Association, see below. Over time we will touch on all of these pillars, and each hospice team lead, will help you set achievable, actionable goals, a.k.a, SMART goals within each of these pillars. (Your SMART goals today, are listed below). For more information on the disease of obesity, associated diseases and intervention, I recommend reviewing the following websites: understanding obesity Home Page - Obesity Action Coalition (yes, politicial action committee, but a toscano part of their mission is education) Definition & Facts for Adult Overweight & Obesity NIDDK (nih.gov) (similar content about the disease of obesity) Appetite control The metal fabrication supervisor, The GoGetter and The Sleepy Executive 720p - Nita video Sleep apnea and weight https://www.sleepfoundation.org/sleep-apnea/ktwsjt-ebvy-hac-sleep-apnea Insulin resistance and weight https://obesitymedicine.org/mrcfsih-iwd-nrsbtbc-resistance/ https://www.secondnature.io/us/guides/diabetes/tfciqdr-cbqlkoiqsg-joubfv-gain Dr. Haroon Frank: Fasting as a Therapeutic Option for Weight Loss - Scaled Inferenceube Https://www.adQ.com/watch?v=wx8twczw8pA https://www.Space Apartube.com/watch?v=35Ryc2VbAPG The Mediterranean Diet https://CodeSquare.org/ https://www.health.[place].edu/blog/g-kjcippfmq-mojhn-jo-bgo-cohjmlrsdtutg-diet- 3129224868915 An important thing to remember as you make changes in your life is that they must be sustainable, that is, whatever you do to lose weight, you will need to do to sustain weight loss. As you try new and healthier food/activity/behaviors, assess whether you can make these changes for the long-term. If the answer is, No way, that is impossible! then we will work together to find other actionable goals to try. Most importantly, for this journey you have to be willing to try to make change. If youcan make change, you will be successful. Your specific SMART goals today: Goals Nutrition Keep food log until you are seen by the dieititian. Record everything you eat or drink, include time eaten and any emotional changes that are significant. Below are Healthy Habit guidelines for optimal health that we will help you to achieve OVER TIME. They are big goals that we break down into smaller more achievable SMART goals. We do not expect you to adopt everything all at once or make huge leaps. We don't even expect that you will achieve them all because nobody is perfect! Nutrition: Whole food quality diet, more plants. (See the back page of your Welcome Book). This is a general recommendation for all patients. Your medical educator and provider will help make more specific recommendations for you if appropriate. Avoid drinking your [...] goal for cardiac activity. You can build to this level slowly and methodically. Your Weight&Wellness team will help you develop a plan that works for you. Sleep: 7-8 hours of restful sleep per night with minimal or no interruptions. If this is not happening, talk to your provider about how we can help. Accountability: most people benefit from some form of accountability. This can be: food tracking - either in an rosanna or on paper, [...] with caloric content outside this window. Your medical educator may make further recommendations documented in this encounter Progress Notes * Candy Clifford MD - 01/18/2022 1:00 PM EDTSummary: 1st THV with Images from the original note were not included. Patient provided verbal consent prior to initiation of this telemedicine encounter and expressed understanding that the telemedicine visit may be billed similar to a clinic visit, pt was seen while via [x] Video [] phone For this video visit, pt is located at: [facility] Patient Name: Telma Richter Date of : 1950 Age: 71 y.o. Referring provider: Glenn Cardoso Dear Justino Lucia MD, Glenn Cardoso Thank you for referring Telma Richter to the [facility]. Telma Richter presented to the [facility] for a consultative visit regarding obesity management. The patientpresented with WHO Class 3 / EOSS Stage 2 Obesity defined by a BMI of Body mass index is 61.27 kg/m??. and comorbidities: HTN, Hyperlipidemia and Vitamin D deficiency. GERD. OA. Telma and I discussed and agreed upon the pillars of obesity treatment: nutrition, activity, behavioral change and medication management. Our team will address each of these pillars as we provide ongoing comprehensive obesity care for Telma. I look forward to collaborating with you and Telma on this journey. To that end, I will make medication adjustments as appropriate based on the patient's ongoing state of health and provide referralsas they relate to her obesity care. Medications that I often manage include, but are not limited to, anti-obesity meds, diabetic medications and anti-hypertensives. Any medication adjustments I make will be communicated to you to maintain seamless care. For referrals and other specific care plans, see the Assessment and Plan: ASSESSMENT: Telma Richter is a 71 y.o. female with uncontrolled obesity who presented to [facility] today for medical evaluation with associated co-morbidities as above. Obesity is a multifactorial disease, and in this case, the following factors could be potential contributors: ?? Obesity is caused by hormonal disorder of fat regulation and insulin is the major hormone that drives weight gain. ?? Genetics and Epigenetics: +FHx ?? Insulin resistance: ? ?? Consumption of sugar and highly refined carbohydrates (processed foods)--consumption of foods that are high in sugar and processed that can lead to metabolic/hormonal changes that can increase body fat by causing insulin resistance. ?? Low intake of fat fighting foods (fruits, vegetables, legumes, nuts, seeds, quality protein) ?? Medications: gabapentin, metoprolol ?? Inactivity ?? Stress and too much cortisol: Prolonged cortisol release associated with chronic stress is strongly correlated with the development of obesity PLAN: 1. Labs FASTING 2. S/W PCP about starting PT 3. Appt w RD - keep food log and with HC 4. F/U w me 4 weeks. CHIEF COMPLAINT: Management of excess weight HISTORY OF PRESENT ILLNESS: I really need to lose quite a bit of weight - FLD, L hip is problematic Weight History: [facility] Weight History 01/15/2022 What is the most you have ever weighed? 371 How old were you then? 70 How many times have you lost 10 pounds or more because you were trying to lose weight? Was it... 3 to 5 How did you try to lose weight? Ate less food, Ate less fat, Exercised, Drank a lot of water, Ate more fruits, vegetables, salads, Ate less sugar, candy, sweets, Joined a weight loss program (ex: Weight Watchers, Marge Alfredo, TOPS, or Overeaters Anonymous) Telma Richter has had gradual weight gain due to: Unclear - sits at home; notes gaining weight when she moved here from [place] to take care of her dad about 10 years ago. Multiple deaths in the family in the same time frame. Why is now the time to try again? Health reasons Barriers to success: L hip pain limits mobility Impact on life: A lot, a big impact Weight hx: Onset: In her 60s Max wt: 371 lbs Lowest wt and when 240 lbs Successful attempts in the past: Lost 80 lbs in her mid 40s: went to gym, portion control, LF diet (got down below 200lbs) What was helpful from that/those programs? A little success with WW Family Hx of Obesity? P. Aunt really really heavy, Daughter Hx medications to treat obesity: NO Hx metabolic surgery: NO (too high risk, HCV cirrhosis, 2018) Initial weight 01/18/22: 335 lbs Initial Body mass index is 61.27 kg/m??. Goal weight: Under 200 lbs (180 lbs) 10% loss: 34 lbs Other goals: Avoid L hip surgery [facility] Importance 01/15/2022 How important is it to you to make a change to improve your health? 10 - Very Important How confident are you that you can make a change to improve your health? 9 Obesogenic medications: Gabapentin, metoprolol Obesity related co-morbidities: Past Medical History 01/15/2022 Have you had any of the following medical problems? 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 NO Solon Sleep Apnea 01/15/2022 Please choose the correct response to each of the following questions. Do you snore? Yes Your snoring is: Slightly louder than breathing How often do you snore? 1-2 times a month Has your snoring ever bothered other people? Don't know Has anyone noticed that you quit breathing during your sleep? Never or nearly never How often do you feel tired or fatigued after your sleep? 1-2 times a month During your waking time, do you feel tired, fatigued or not up to par? 1-2 times a month Have you ever nodded off or fallen asleep while driving a vehicle? No Do you have high blood pressure? Yes Solon Category I 1 (Negative) Solon Category I Result 0 (Negative) Solon Category 2 0 (Negative) Solon Category II Result 0 (Negative) Solon Category 3 1 (Positive) Solon Sleep Apnea Result 1 (Low Risk) Daily Routine Time to Bed? 8 PM Time to Sleep? 10 PM - watch TV When do you wake? 5 AM, gets OOB at 8 AM - not hungry, not really ever hungry Eating episode #1 8 AM - cup of tea +/- eggs/toast - sometimes eats Eating episode #2 12 PM - meals on wheels entree with milk Eating episode #3 5-6 PM - steak/potato, chicken/rice Snacking? Around 4-5 pm - sometimes fruit and vegy OR pretzels in between breakfast/lunch After dinner eating? Not usually, jello every now and then Eating before bed IN ORDER to sleep? NO What do you drink? Water, raspberry/blackberry with honey Food Behaviors Appetite: Low hunger cues (I used to eat all the time) Satiety/Fullness: One plate Cravings? Australian food Eating out of: [x]Hunger []Habit []It's time. [x]Boredom - yes in the past [x]Emotions-used to inthe past Eating patterns: [] Mindless eating [] binge eating [] Grazing [] skips meals [x] Night eating-NO Movement: [facility]: PAVS 01/15/2022 How many days during the past week have you performed physical activity where your heart beats faster and your breathing is harder than normal for 30 minutes or more? 0 How many days in a typical week do you perform an activity such as this? 0 Is ambulation limited most or all of the time? Can walk short distances Tolerance: she can climb a flight of stairs? Cannot do stairs, ramp at home Purposeful exercise now? NO Activity enjoyed in past? Walking, go swimming at the gym, hiking Stress: Its pretty stressful, I cant do much of anything. 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 Fatigue, Hair loss, Edema (swelling oflegs), Shortness of breath, Chest pain, Diarrhea, Joint pain, Frequent thirst, Frequent urination [facility] PHQ-2 01/15/2022 Over the LAST 2 WEEKS, how often have you been bothered by little interest or pleasure in doing things? Nearly every day Over the LAST 2 WEEKS, how often have you been bothered by feeling down, depressed, or hopeless? Not at all PHQ-2 Score 3 (Full PHQ-9 indicated) WCCGAD2 01/15/2022 Over the LAST 2 WEEKS, how often have you been bothered by feeling nervous, anxious or on edge? Several days Over the LAST 2 WEEKS, how often have you been bothered by not being able to stop or control worrying? Several days GAD2 Subscore 2 (Brief screen negative) MEDICAL HISTORY Medical and Surgical History: Reviewed. Past Medical History: Diagnosis Date ??? Anemia [...] 05/21/2017 ??? SOB (shortness of breath) 05/21/2017 Lap chilango 1990s BTL Oral surgery x 2 L should replacement Medication C/I: Any h/o pancreatitis? NO Any h/o kidney stones? NO Any h/o or FHx of thyroid CA (MTC?) NO Any h/o kidney disease/failure? NO Any h/o glaucoma? NO Gynecologic: using/taking reliable contraception? Menopause Family History: Reviewed. No flowsheet data found. Family History Problem (# of Occurrences) Relation (Name,Age of Onset) Alcohol Use Disorder (1) Brother (Rohith) Aneurysm (1) Sister (Gladys) Asthma (1) Sister (Ave) Brain Cancer (1) Brother (Ketan) Cirrhosis (1) Brother (Rohith) Depression (1) Brother (Rohith) Hypertension (1) Father Liver Cancer (1) Brother (Mushtaq) Nephrolithiasis (2) Mother, Father Substance Use Disorder (1) Brother (Rohith) Social History: /Partner? Children? Three Smoking? Former quit 19 years ago ETOH? NO quit 19 years ago Other substances? + MJ remotely WWC: Alcohol 01/15/2022 How often do you have a drink containing alcohol? Never How many standard drinks containing alcohol do you have on a typical day? 0 drinks How often do you have six or more drinks on one occasion? Never VITAL SIGNS: Vitals: 01/18/22 1310 Weight: (!) 152 kg (335 lb) Height: 157.5 cm (5' 2) Body mass index is 61.27 kg/m??. PHYSICAL EXAM: Gen: 71 y.o. year old female with obesity who appears stated age. NAD. Appearance: appropriate, well-kempt Psych: pleasant, conversant and engaged, normal affect, cognition and mood. PREVIOUS LABS AND IMAGING: Reviewed Last CBC Lab Results Component Value Date WBC 6.5 12/14/2021 RBC 5.10 12/14/2021 HGB 14.6 12/14/2021 HCT 44.4 12/14/2021 MCV 87.1 12/14/2021 MCH 28.6 12/14/2021 MCHC 32.9 12/14/2021 PLATELET 247 12/14/2021 RDWCV 15.4 (H) 12/14/2021 Last CMP Lab Results Component Value Date NA 141 12/14/2021 K 4.1 12/14/2021 CL 104 12/14/2021 CO2 27 12/14/2021 BUN 14 12/14/2021 CREATININE 0.82 12/14/2021 GLUCOSE 102 12/14/2021 CALCIUM 9.5 12/14/2021 ESTGFR 72 12/14/2021 Lab Results Component Value Date ALT 26 12/14/2021 AST 30 12/14/2021 ALKPHOS 77 12/14/2021 BILITOT 0.9 12/14/2021 BILIDIR 0.3 02/07/2016 ALBUMIN 4.0 12/14/2021 PROT 7.2 12/14/2021 Lipid Panel Last 3 Hemoglobin A1Cs No results found for: HA1C Latest TSH Lab Results Component Value Date TSH 1.99 02/08/2016 No results found for: LABINSU No results found for: GLUCFASTING No results found for: FERRITIN No results found for: [id number] No results found for: 25OHVITD Liver Fibrosis Score (Fib 4) was 1.67 at 01/18/2022 4:51 PM INITIAL EVALUATION: FACTORS CONTRIBUTING TO OBESITY/INTERVENTION Risk Stratification: probable insulin resistance Obesogenic meds: Antihypertensive, Neuropathic pain control Plan: No change at this time Co-morbidities to address: GERD, OA, HTN, HL, prediabetes AOM: Deferred decision making until f/u. Medication considerations: []insulin sensitizing meds []phentermine []topiramate []bupropion []naltrexone Factors contributing to decision making: NO hx of pancreatitis, NO Fam or personl hx of medullary thyroid ca, NO hx of kidney stones, NO Hx of glaucoma/regular eye check ONGOING INTERVENTIONS Referrals: Dietitian, Health Internet Marketing Coordinator For specific behavioral interventions, see goals Nutrition: discussed whole food, quality diet; specific recommendations per RD Behavior: NO CONCERNS Activity: provided resistance bands and booklet Barriers: []needs cardiac eval [x]injury/pain preventing activity right now Stress Management:no concerns Sleep: no concerns Self-monitoring: Food log Discussion 01/18/22: Pillars, Set point theory Diagnoses and all orders for this visit: Class 3 severe obesity with serious comorbidity and body mass index (BMI) of 60.0 to 69.9 in adult,unspecified obesity type Hyperlipidemia, unspecified hyperlipidemia type Prediabetes Hypertension, unspecified type Orders Placed This Encounter Procedures ??? Ferritin ??? Hemoglobin A1c ??? Insulin, total ??? Lipid Panel (Reflex Direct LDL) ??? TSH ??? Vitamin B12 ??? Vitamin D, 25-Hydroxy Return in about 4 weeks (around 02/15/2022) for In person or Zoom, With me, RD, HC. I spent a total of 60 minutes in [id number]-[id number] discussion/counseling regarding the diagnosis of obesity, interventions for treatment, and obesity related co- morbidities as well as documentation of visit and chart review, including notes, labs, and other evaluations as reviewed below. Goals Addressed This Visit's Progress ??? Nutrition Keep food log until you are seen by the dieititian. Record everything you eat or drink, include time eaten and any emotional changes that are significant. Care pathway: Pathway: [facility] PATHWAY - ADULT 01/18/2022 Obesity Medicine Activate I spoke with Telma about opportunities to participate in research and to be contacted by our research assistant to the director. They indicated that they are: [] INTERESTED [] NOT INTERESTED // [x] NOT ADDRESSED [facility] Initial Responses 01/15/2022 URICA - Readiness Score 12 (Preparation State) WEL-SF Total Scores 55 PHQ-2 SubScore 3 (Full PHQ-9 indicated) GAD2 Subscore 2 (Brief screen negative) PROMIS 10 Physical Scores 34.9 PROMIS 10 Mental Scores 43.5 Total REAP-S Scores 28 TFEQ - Uncontrolled Eating (UE) 29.63 TFEQ-Cognitive Restraint (CR) 33.33 TFEQ-Emotional Eating 16.67 Food Insecurity Score 4 Solon Category I Result 0 (Negative) Solon Category II Result 0 (Negative) Solon Category III 1 (Positive) Solon Sleep Apnea Total 1 (Low Risk) Schooling Some college or technical school Importance of making a change 10 - Very Important Confidence to make change 9 Most weighed 371 Age most weighed 70 Times lost 10 lbs or more 3 to 5 Lost weight how? Ate less food, Ate less fat, Exercised, Drank a lot of water, Ate more fruits, vegetables, salads, Ate less sugar, candy, sweets, Joined a weight loss program (ex: Weight Watchers, Marge Juni, TOPS, or Overeaters Anonymous) Worried food would run out before we got money to buy more Sometimes true Food didnt last; no money to get more Sometimes true URICA: <8 Precontemp, 8-12 Contemp, 12+ Prep TFEQ: Look at transformed scores, average is 50, +/-2SD is sigfnif, consider referral >70 WEL-SF: Range 0-80, higher = better PROMIS Avg score = 50 REAP score 13-39, higher = more diversity in diet, better documented in this encounter Plan of Treatment Upcoming Encounters Date Type Department Care Team (Late st Contact Info) Description 07/22/2024 9:00 AM EST [place]ointment [place] [phone] Ana Ho MD [facility] [place] [address] 07/22/2024 10:00 AM EST Laboratory Appointment Lab [address] [place] [phone] 07/22/2024 11:00 AM EST Office Visit [place] [phone] Ana Ho MD [facility] [place] [address] 09/15/2024 10:00 AM EST TH Visit (TeleHealth) [place] [phone] Candy Clifford MD [facility] DR [facility] [address] Scheduled Procedures Name Priority Associated Diagnoses Date/Ti [...] opportunity to start with protein (cottage cheese, namibian yogurt, protein smoothies, chicken or chicken salad [...] for sample meal ideas in the [facility] Keep food log until you are seen by the dieititian. Record everything you eat or drink, include time eaten and any emotional changes that are significant. documented as of this encounter Results * Vitamin D, 25-Hydroxy (01/01/2023 8:48 AM EDT) Vitamin D Total 25 OH 43 21 - 100 ng/mL [facility] Vit D Interp Sufficient [facility] Blood 01/01/2023 8:48 AM EDT 01/01/2023 9:03 AM EDT Narrative Resulting Agency Comment Spec In Lab Candy Clifford MD CHEMISTRY ORDRicarda NELSON Performing Organization Address City/[facility]/ZIP Co de Phone Number [facility] [place] [address] * Vitamin B12 (01/01/2023 8:48 AM EDT) Vitamin B12 553 232 - 1,245 pg/mL [facility] Blood 01/01/2023 8:48 AM EDT 01/01/2023 9:03 AM EDT Narrative Resulting Agency Comment Spec In Lab Candy Clifford MD CHEMISTRY ORDRicarda NELSON Performing Organization Address [facility] Co de Phone Number [facility] [place] [address] * TSH (01/01/2023 8:48 AM EDT) Thyroid Stimulating Hormone 1.28 0.27 - 4.20 mcIU/mL [facility] Comment: Reference Interval (mcIU/mL): Females: ??First Trimester: 0.23-3.88 ??Second Trimester: 0.22-3.90 ??Third Trimester: 0.44-4.66 Blood 01/01/2023 8:48 AM EDT 01/01/2023 9:03 AM EDT Narrative Resulting Agency Comment Spec In Lab Candy Clifford MD CHEMISTRY ORDRicarda NELSON Performing Organization Address City/[facility]/ZIP Co de Phone Number [facility] [place] [address] * Lipid Panel (Reflex Direct LDL) (01/01/2023 8:48 AM EDT) Cholesterol, Total 118 mg/dL UPPER [facility] Comment: Lower Risk: <200 mg/dL Average Risk: 200-239 mg/dL Higher Risk: >bz=164 mg/dL Triglyceride 75 mg/dL [facility] Comment: Average Risk/Lower Risk: <150 mg/dL Borderline High Risk: 150-199 mg/dL High Risk: 200-499 mg/dL Very High Risk: >nt=650 mg/dL HDL Cholesterol 45 mg/dL [facility] Comment: Males: ?? Higher Risk: <40 mg/dL Females: ?? Higher Risk: <50 mg/dL LDL Cholesterol 58 mg/dL [facility] Comment: Lowest Risk: <100 mg/dL Lower Risk: 100-129 mg/dL Borderline High Risk: 130-159 mg/dL High Risk: 160-189 mg/dL Very High Risk: >cg=508 mg/dL Cholesterol/HDL Ratio 2.6 ratio [facility] Lipid Interpretation See Note [facility] Comment: Lipid management should be guided by a patient? s ASCVD risk, goals and preferences. ACC/AHA Guidelines recommend high intensity statin if clinical ASCVD or LDL greater than or equal to 190 mg/dL. http://Deenty.com/AVW-SVU-Aoulwfmgk Adults aged 40-75 with LDL 70-189 mg/dL should have their 10 year ASCVD risk estimated with the ACC/AHA ASCVD risk side puller http://tools.acc.org/HZSQJ-Swbq-Hgmthrcry/ Statin should be discussed if risk greater [...] Lab Candy Clifford MD CHEMISTRY ZACK NELSON [facility] [place] [address] * (ABNORMAL) Insulin, total (01/01/2023 8:48 AM EDT) Insulin 25.2(H) 2.6 - 24.9 mcunit/mL [facility] Comment:Reference intervals derived from fasting individuals Blood 01/01/2023 8:48 AM EDT 01/01/2023 9:03 AM EDT Narrative Resulting Agency Comment Spec In Lab Candy Clifford MD CHEMISTRY ZACK NELSON [facility] [place] [address] * Hemoglobin A1c (01/01/2023 8:48 AM EDT) [facility] Hemoglobin A1c 4.8 4.3 - 5.6 % [facility] Comment: Reference Range: 4.3 - 5.6% [...] Mellitus, Diabetes Care 2013; 36: Suppl. 1, L59-75 Estimated Average Glucose See note mg/dL [facility] Comment: Estimated Average Glucose not appropriate [...] into estimated average glucose values. ??Diabetes Care 2008:31(8):6474-7387. Blood 01/01/2023 8:48 AM EDT 01/01/2023 9:03 AM EDT Narrative Resulting Agency Comment Spec In Lab Candy Clifford MD CHEMISTRY ZACK NELSON Performing Organization Address [facility] de Phone Number [facility] [place] [address] * Ferritin (01/01/2023 8:48 AM EDT) [facility] Signature Ferritin 56 30 - 400 ng/mL [facility] Comment: Pediatric reference ranges not verified at [facility], interpret with caution. Reference ranges for females greater than 50 years of age approach values for men, i.e., 30-400 ng/mL. Blood 01/01/2023 8:48 AM EDT 01/01/2023 9:03 AM EDT Narrative Resulting Agency Comment Spec In Lab Candy NELSON Performing Organization Address [facility] Co de Phone Number [facility] [place] [address] documented in this encounter Visit Diagnoses Diagnosis Class 3 severe obesity with serious comorbidity and body mass index (BMI) of 60.0 to 69.9 in adult, unspecified obesity type Hyperlipidemia, unspecified hyperlipidemia type Prediabetes Other abnormal glucose Hypertension, unspecified type documented in this encounter Care Teams Mechanical Specialist Relationship Specialty Start Date End Date Justino Lucia MD PCP - General Family Medicine 10/04/21 documented as of this encounter
--- OUTSIDE RECORDS SUMMARY | 2024-07-07 13:39 | XMS_ITS | Encounter Summary ---
Author Organization [facility] Address [address] [facility] [place] [address] Care Team Providers Care Vehicle Trimmer Name Role Phone Justino Lucia MD Primary Care Provider [phone] Encounter Details Date Type Department Care Team (Latest Contact Info) Description 04/17/2022 9:30 AM EDT TH Visit (TeleHealth) Weight and Wellness at [facility] [address] [place] [phone] Pankaj Mcadams Class 3 severe obesity due [...] Instructions * Patient Instructions* Pankaj Mcadams - 04/17/2022 9:30 AM EDT It was good to talk with you today Telma. I'm glad that you are starting to feel better. Keeping up with your physical therapy and doing the exercises at home sounds like it's really helping. I encourage you to see what is available in town for classes or activities to participate in. The senior center often has bone builders and gentle stretching classes. If there is a gym close by, you might find something there. Remember to also take some time each day to write about something that went well for you or that you appreciate about yourbody or that made you smile :) I look forward to hearing what you learn! Be well, Pankaj Mcadams Health Lead Ingot Molder documented in this encounter Progress Notes * Pankaj Mcadams - 04/17/2022 9:30 AM EDT Telma Richter is here today at the request of Dr. Clifford for lifestyle coaching for weight control and overall health. FOLLOW UP VISIT 1. Clarify/revisit BIG WHY: feel better, move better, less pain 2. Assess/review Strengths: knowledge 3. Review Healthy habits guidelines for exercise, sleep, and stress- see below 4. Teach SMART goals and practice setting one(connect to BIG WHY, pillars). Review specific goals if any from provider Goals ??? movement Try gentle movement like chair yoga, t'ai chi and qigong. Health Lead Ingot Molder will send hand-outs. Use resistance bands. Health Lead Ingot Molder will request a set be mailed. ??? Nutrition Nutrition Goals: 03/16/22 TF Write down meal ideas (statred this today) - look for sample meal ideas in the [employer] [facility] Keep food log until you are seen by the dieititian. Record everything you eat or drink, include time eaten and any emotional changes that are significant. ??? relaxation/sleep Try some meditation/relaxation apps when I wake in the night and can't go back to sleep. Health Lead Ingot Molder will send some to try. Exercise PT, starting twice a week, do exercises at home daily, feeling better Sleep Sleep is better, not waking as often, don't really like the meditation apps as I like it to be quiet Stress Would like to get out a bit more to socialize. Feel self-conscious, also not walking well, may lookfor a class at senior center or gym Self-monitoring What are you doing now? If no personal accountability process, what can you add? [x]Food log: [] daily [x] intermittent []Weigh-ins: [] daily [] weekly []Exercise log [x]Gratitude journal []Other: Food Behaviors (optional): Medication is helpful, happy about weight loss, never feel hungry Future follow-up with health living coach will address identified areas of concern: [x] Exercise [x]Sleep []Stress []Accountability []Food Behaviors [x]Self-compassion Below are guidelines for [...] increasing mindfulness throughout the day. Your health living coach is well-equipped to guide you to find something to look forward to everyday. Eating behaviors: many people benefit from restricting the hours in which they eat. You can choose an eating window of 8-12 hours to start. Make a pact with yourself that you will not take in anything with caloric content outside this window. Your hospice social worker may make further recommendations documented in this encounter Plan of Treatment Upcoming Encounters Date Type Department Care Team (Late st Contact Info) Description 07/22/2024 9:00 AM EST [place] [phone] Ana Ho MD [facility] [place] [address] 07/22/2024 10:00 AM EST Laboratory Appointment Lab [address] [place] [address] 07/22/2024 11:00 AM EST Office [place] [phone] Ana Ho MD [facility] [place] [address] 09/15/2024 10:00 AM EST TH Visit (TeleHealth) [place] [phone] Candy Clifford MD [facility] [address] [facility] [address] Scheduled Procedures Name Priority Associated Diagnoses Date/Ti [...] yoga, t'ai chi and qigong. Health Lead Ingot Molder will send hand-outs. Use resistance bands. Health Lead Ingot Molder will request a set be mailed. Movement [...] for sample meal ideas in the [employer] [facility] Keep food log until you are seen by the dieititian. Record everything you eat or drink, include time eaten and any emotional changes that are significant. relaxation/sleep Lifestyle No Pankaj Mcadams Note: Try some meditation/relaxation apps when I wake in the night and can't go back to sleep. Health Lead Ingot Molder will send some to try. Tried apps but don't really like them as I like the quiet when going to sleep. [facility] 04/23 documented as of this encounter Visit Diagnoses Diagnosis Class 3 severe obesity due to excess calories with serious comorbidity and body mass index (BMI) of 60.0 to 69.9 in adult documented in this encounter Care Teams Vehicle Trimmer Relationship Specialty Start Date End Date Justino Lucia MD PCP - General Family Medicine 10/04/21 documented as of this encounter
--- OUTSIDE RECORDS SUMMARY | 2024-07-07 13:39 | XMS_ITS | Encounter Summary ---
Author Organization [facility] [place] [address] Care Team Providers Care Gynecologist Name Role Phone Justino Lucia MD Primary Care Provider [phone] Reason for Referral * Consultation (Routine) - Duplicate Referral Specialty Diagnoses / Procedures Referred By Contchristy t Referred To Contact Weight and Wellness Diagnoses Morbid obesity with BMI of 60.0-69.9, adult [place], Julian Damon MD [facility] [place] [address] [facility] [address] [place] [address] Referral ID Status Reason Start Date Expiration Date Visits Requested Visits Authorized [id number] Duplicate Referral Consult, Test & Treat 12/01/2021 12/01/2022 1 1 Reason for Visit * Reason Comments Aftercare Of [facility] LT HIP PAIN * Consultation (Routine) - Closed Specialty Diagnoses / Procedures Referred By Contac t Referred To Contact Orthopaedics Diagnoses Left Hip pain Jim Galan MD [address] [place] [address] [facility] [place] [facility] [address] [place] [phone] Referral ID Status Reason Start Date Expiration Date V isits Requested Visits Authorized [id number] Closed Consult, Test & Treat PCP Updated and/or Approved 11/20/2021 11/20/2022 6 6 Encounter Details Date Type Department Care Team (Latest Contact Info) Description 12/01/2021 9:00 AM EDT Office [place] [address] Riley Morgan MD [facility] [place] [address] Morbid obesity with BMI of 60.0-69.9, adult; Primary osteoarthritis of left hip Social History Tobacco Use Types Packs/Day Years [...] Sign Reading Time Taken Comments Blood Pressure 142/65 12/01/2021 9:18 AM EDT Pulse - - Temperature - - Respiratory Rate - - Oxygen Saturation - - Inhaled Oxygen Concentration - - Weight 160.1 kg (353 lb) 12/01/2021 9:18 AM EDT Height 157.5 cm (5' 2) 12/01/2021 9:18 AM EDT Body Mass Index 64.56 12/01/2021 9:18 AM EDT documented in this encounter Progress Notes * Julian Oviedo MD - 12/01/2021 9:00 AM EDT Images from the original note were not included. Department of Orthopaedics Division of Adult Joint Reconstructive Surgery Subjective: RE: Telma Richter CC: Chief Complaint Patient presents with ??? Aftercare Of [facility] LT HIP PAIN DIAGNOSIS: Osteoarthritis (M19.10) , LEFT hip. Morbid obesity (BMI 65) ARTHROPLASTY PROCEDURES: 1. Left Total Shoulder Arthroplasty 2019, [facility] Telmaclemente Richter was referred from Self mail HISTORY OF PRESENT ILLNESS: Telma Richter who is a 71 y.o. female who has an acute history of LEFT hip pain that has not improvedas of the past one month. The patient localizes the pain to in the groin area, in the buttock area and radiating down to the knee. It is a dull, aching and sharp pain depending on their activities, today's pain score: 9/10 onVAS. Has difficulty with shoes and socks, and other functional activities such as stairs, prolongedstanding and walking; walks with a significant limp. Overall, the problem has not been getting better and is now significantly impacting quality of life. She reports a weight problem for most of her life. She lost about 80 pounds once and kept it off for about 2 years. She is not sure how she hasgained her weight back. She thinks this is from a thyroid problem. She has used about 10 days of oxycodone prescribed by her PCP. She is using some tylenol, but limited due to liver disease. She has not used NSAIDs and is not interested in CSI. Other pertinent details of the history include: Anti-inflammatory medication history: none Home exercise/activities: none Ambulatory capacity: less than 1 blocks Assistive devices: using a cane most of the time Stair climbing: unable Physical therapy: No Weight gain/loss: has been stable, on diuretics, BMI 65, 355lbs Corticosteroid injections and/or viscosupplementation: none Patient denies fevers, chills, night sweats, nausea, or vomiting. She does not endorse a history ofDVT/PE or clotting disorder. QUESTIONNAIRE RESPONSES: General Health, Prior Treatments, PreExisting Condition, Health Habits, About You 11/25/2021 PROMIS-10 General Health Very Good PROMIS-10 Quality of Life Good PROMIS-10 Physical Health Fair PROMIS-10 Mental Health Excellent PROMIS-10 Social Activity Fair PROMIS-10 Everyday Activities A little PROMIS-10 Pain 9 PROMIS-10 Fatigue Moderate PROMIS-10 Social Roles Poor PROMIS-10 Anxious or Depressed Rarely PROMIS PHYSICAL SCORE (range 16-68) 32.4 PROMIS MENTAL SCORE (range 21-68) 48.3 Treatments Tried Heat and ice therapy, Walking aids (e.g.cane, walker), Medicines applied on the skin (topical), Acetaminophen (e.g. Tylenol), Narcotics/opiods (Percocet, codeine, hydrocodone) HOOS JR Scores 32.74 KRISTY Grade 3 Alzheimers or dementia No Cirrohosis or liver disease Yes HIV/AIDS No Pain in more than one joint in legs Yes Back or neck pain Yes Heart failure No Unclog/bypass leg arteries No Stroke, blood clot, TIA No Asthma Yes Take medication for asthma Yes Emphysema, chronic bronchities, or COPD No Stomach ulcers/peptic ulcer disease No Diabetes No Poor kidney function No Rheumatic condtions No Cancer No Weight (lbs) 353 Height (feet) 5 feet Height (Inches) 2 BMI 64.56 Ever used tobacco products Yes Tobacco frequency Never WHO - Tobacco Advice 0 (You are at low risk of health and other problems from your current pattern of use.) Ever used alcoholic beverages Yes Alcohol frequency Never WHO - Alcohol Advice 0 (You are at low risk of health and other problems from your current pattern of use.) Live Alone No Marital situation / Schooling High school graduate or GED Combined Household Income $15,000 to less than $20,000 # People Supported 2 [place]er, , No, not [place]er// Race White Health Literacy Extremely Currently working No Not working because: Retired [facility] Response 11/25/2021 HOOS JR Scores 32.74 Spine [facility] 11/25/2021 HOOS JR Scores 32.74 ALLERGIES: No Known Allergies Allergies to metals: none SOCIAL HISTORY: reports that she has quit smoking. Her smoking use included cigarettes. She has a 126.00 pack-year smoking history. She has never used smokeless tobacco. She reports current drug use.Drug: Marijuana. She reports that she does not drink alcohol. 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 SIGNIFICANT MEDICAL COMORBIDITIES: Patient Active Problem List Diagnosis Code ??? 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 Frequent PVCs I49.3 ??? SOB (shortness of breath) R06.02 ??? Edema of lower extremity R60.0 ??? Epistaxis R04.0 ??? Anxiety F41.9 ??? Depression F32.A ??? Anemia D64.9 ??? Fatigue R53.83 ??? Osteopenia M85.80 ??? Hypoglycemia E16.2 ??? PSVT (paroxysmal supraventricular tachycardia) I47.1 ??? Cirrhosis K74.60 ??? HCV (hepatitis C virus) B19.20 ??? Asthma J45.909 ??? Hypertension I10 ??? Morbid obesity with BMI of 50.0-59.9, adult E66.01, Z68.43 Past Surgical History: Procedure Laterality Date ??? CARDIAC CATHERIZATION FAMILY HISTORY: Family history was reviewed with patient and is as listed below. There is not a family history of bleeding or anesthetic complications. Family History Problem Relation Age of Onset ??? Nephrolithiasis Mother ??? Hypertension Father ??? Nephrolithiasis Father ??? Asthma Sister ??? Brain Cancer Brother ??? Depression Brother ??? Alcohol Use Disorder Brother ??? Cirrhosis Brother ??? Substance Use Disorder Brother ??? Liver Cancer Brother ??? Aneurysm Sister REVIEW OF SYSTEMS: A detailed review of systems was performed and is as reviewed with the patient and indicated in thechart. Review of Systems Constitutional: Negative. HENT: Negative. Eyes: Negative. Respiratory: Negative. Negative for shortness of breath. Cardiovascular: Negative for chest pain. Gastrointestinal: Negative. Genitourinary: Negative. Musculoskeletal: Positive for joint pain. Skin: Negative. Neurological: Negative. Endo/Heme/Allergies: Negative. Psychiatric/Behavioral: Negative. All other systems reviewed and are negative. Patient denies fevers, chills, night sweats, nausea, or vomiting. Objective: VITALS: Blood Pressure 142/65 Height 157.5 cm (5' 2) Weight (Abnormal) 160.1 kg (353 lb) Body Mass Index 64.56 kg/m?? Body mass index is 64.56 kg/m??. PHYSICAL EXAMINATION: General : alert, appears stated age and cooperative, significant obesity and difficulty with any type of activity Gait: Antalgic. The patient can bear weight on the injured extremity. I have made the following determinations: Hip Exam: Left Prior surgery on this joint: No Leg length: Longer leg: equal Limb Length discrepancy: 0cm Motion: Limited due to pannus and tissue envelope Flexion contracture: 0 Total degrees of Flexion:90 Total degrees of Abduction:20 Total degrees of Ext Rotation: 20 Total degrees of Internal Rotation: 10 Gait Abnormality: Antalgic Radiographic evidence of joint damage: [0= normal; 1=minimal ; 2= some osteophytes , some narrowing ; 3= moderate osteophytes, significantnarrowing, mild deformity; 4= large osteophytes, marked narrowing, obvious deformity]: 3= moderate osteophytes, significant narrowing, mild deformity Skin Integrity: Abnormal - significant pitting edema, multiple pannus folds, irritation in the folds Pulses Palpable: Right PT: Yes Right DP:difficulty with edema present Motor/Sensory: Right Distal Motor: Normal Distal Sensory: Abnormal and tingling in stocking distribution Hip Abductors: 4 Trendelenburg test: unable to assess Right Left [facility] negative positive Passive Straight Leg Raise negative negative Abductor Strength 4+/5 4/5 Tenderness over greater trochanter Yes Yes FADIR painless painful OBED painless painful IMAGING: I personally reviewed and interpreted the radiographs obtained on 10/31/21. X-RAYS: AP pelvis and AP and lateral views of the BILATERAL hip(s) demonstrate moderate joint spacenarrowing with femoral head neck osteophytes, acetabular osteophytes and subchondral sclerosis. REVIEW OF OUTSIDE RECORDS: None Assessment & Plan: IMPRESSION: Telma Richter who is a 71 y.o. female who has primary osteoarthritis of her LEFT hip. We discussed both the natural history and the treatment options with the patient at length today, including both non-operative and operative measures. We reviewed the multiple treatment options available to her for this condition and the hurtful but non-harmful nature of arthritis. Both operative and nonoperative options were discussed as well as the pure elective nature of each. I reviewed the concept of the arthritis ladder with its step-mercado approach, rising in invasiveness based on either previous response or symptom severity/impact on lifestyle. The patient is not a candidate for left KRISTY at this time for the following reasons: Potential barriers to total joint arthroplasty: -BMI > 40: Yes Body mass index is 64.56 kg/m??. -Active Tobacco use: No -Diabetes with hemoglobin A1C > 7.5: No -Other comorbid conditions: Multiple medical comorbidities Specific non-operative treatment options for this patient include: Weight loss Corticosteroid injections Walking aids NSAIDs Tylenol Strengthening (e.g., stationary bike) the quadriceps Physical therapy MEDICAL DECISION MAKING: Patient is in a significant amount of debilitating pain in her left hip is mainly in her groin and thigh area.. Plain radiographs do show moderate to severe osteoarthritis of the left hip joint. We had an extensive and thorough conversation regarding the treatments of osteoarthritis starting from doing nothing all the way working up towards total hip replacement. The patient has significant elevated BMI of 65. We had a cherry discussion regarding the risk of the surgery like total hip replacement in a BMI of 65. She understands the significant risks associated with this. We discussed specific options of adding in anti-inflammatories, considering corticosteroid injection, and referral to weight and wellness center. Our goals for overall health and sustained wellness. At this time she seemedto be more interested in starting some anti- inflammatories like Aleve twice daily for a week or 2 weeks to see if that helps as well as referral to weight and wellness. Other there is research suggesting BMI less than 40 has decreased risk of complications, specifically infection, we discussed moreabout the progress towards weight loss and wellness as opposed to just doing any specific cut off. Her to be a BMI of 40, she would need to lose 100+ pounds. PLAN: Recommend nonoperative management in the form of anti-inflammatory medications, consider corticosteroid injection, and referral to weight and wellness center. The order has been placed. The patient will follow up on an as-needed basis. Julian Oviedo MD Department of Orthopaedics Division of Adult Joint Reconstructive Surgery December 01, 2021 I had the pleasure of evaluating Telma Richter in clinic in conjunction with Dr. Oviedo. I have seen and examined the patient and reviewed the history/physical and I agree with the details as written. The assessment and plan were formulated in discussion with me and I agree with them as documented. Riley Morgan MD, MSc Division of Adult Reconstructive Operations LiaisonSizer Hand of Orthopaedics Department of [place]opaedics [facility] [place] [phone] [email or web address] documented in this encounter Plan of Treatment Upcoming Encounters Date Type Department Care Team (Late st Contact Info) Description 07/22/2024 9:00 AM EST [place] [address] Ana Ho MD [facility] [place] [address] 07/22/2024 10:00 AM EST Laboratory Appointment Lab [address] [place] [address] 07/22/2024 11:00 AM EST Office [place] [address] Ana Ho MD [facility] [place] [address] 09/15/2024 10:00 AM EST TH Visit (TeleHealth) [place] [address] Candy Clifford MD [facility] DR [facility] [place] [address] Scheduled Procedures Name Priority Associated Diagnoses Date/Ti me EGD, UPPER GI ENDOSCOPY (WRV U 2.09) Hepatic cirrhosis, unspecified hepatic cirrhosis type, unspecified whether ascites present Scheduled Referrals Name Type Priority Associated Diagnoses Orde r Schedule Referral to Weight & Wellness Center Outpatient Referral Routine Morbid obesity with BMI of 60.0-69.9, adult Ordered: 12/01/2021 documented as of this encounter Visit Diagnoses Diagnosis Morbid obesity with BMI of 60.0-69.9, adult Morbid obesity Primary osteoarthritis of left hip Primary localized osteoarthrosis, pelvic region and thigh documented in this encounter Care Teams Gynecologist Relationship Specialty Start Date End Date Justino Lucia MD PCP - General Family Medicine 10/04/21 documented as of this encounter
--- OUTSIDE RECORDS SUMMARY | 2024-07-07 13:39 | XMS_ITS | Encounter Summary ---
Author Organization [facility] [place] [address] Care Team Providers Care Biofuels Production Manager Name Role Phone Justino Lucia MD Primary Care Provider Encounter Details Date Type Department Care Team (Late st Contact Info) Description 10/31/2021 Ancillary Procedure Radiology Library at [facility] [place] [phone] Justino Lucia MD [address] [place] [address] [place] [address] Social History Tobacco Use Types Packs/Day Years [...] 07/22/2024 9:00 AM EST Appointment [place] [address] Ana Ho MD [facility] GASTROENTEROLOGY [place], [place] [phone] 07/22/2024 10:00 AM EST Laboratory Appointment Lab [address] [place] [address] 07/22/2024 11:00 AM EST Office Visit [place] [address] Ana Ho MD [facility] [place] [address] 09/15/2024 10:00 AM EST TH Visit (TeleHealth) Weight and [place]ness [place] [address] Candy Clifford MD [facility] DR [facility] [address] Scheduled Procedures Name Priority Associated Diagnoses Date/Ti me EGD, UPPER GI ENDOSCOPY (WRV U 2.09) Hepatic cirrhosis, unspecified hepatic cirrhosis type, unspecified whether ascites present documented as of this encounter Procedures Procedure Name Priority Date/Time Associated Diagnosis Comments FILM LIBRARY STORAGE ONLY DX HIP Routine 10/31/2021 12:00 AM EST documented in this encounter Results * Film Library- Storage Only DX Hip (10/31/2021 12:00 AM EST) Narrative [facility] - 11/20/2021 4:52 PM EDT This exam is auto-finalizing. It's purpose is for storage only. Justino Lucia MD IMG FILM LIBRARY ORD ERABLES [place], [place] documented in this encounter Visit Diagnoses Not on filedocumented in this encounter Care Teams Biofuels Production Manager Relationship Specialty Start Date End Date Justino Lucia MD PCP - General Family Medicine 10/04/21 documented as of this encounter
--- OUTSIDE RECORDS SUMMARY | 2024-07-07 13:39 | XMS_ITS | Encounter Summary ---
Author Organization [facility] [place] [address] Care Team Providers Care Corpsman Name Role Phone Justino Lucia MD Primary Care Provider [phone] Reason for Visit * Reason Onset Date Comments Appointment 03/19/2022 Encounter Details Date Type Department Care Team (Late st Contact Info) Description 03/19/2022 Telephone Weight and Wellness at [address] [phone] Jayashree Bryant Appointment Social History Tobacco Use Types Packs/Day [...] encounter Miscellaneous Notes * Telephone Encounter - Jayashree Bryant - 03/19/2022 11:13 AM EDT Return in about 3 months (around 06/16/2022) for Telehealth. (TF) documented in this encounter Plan of Treatment Upcoming Encounters Date Type Department Care Team (Late st Contact Info) Description 07/22/2024 9:00 AM EST [place] [phone] Ana Ho MD [facility] [place] [address] 07/22/2024 10:00 AM EST Laboratory Appointment Lab [address] [place] [phone] 07/22/2024 11:00 AM EST Office [place] [phone] Ana Ho MD [facility] [place] [address] 09/15/2024 10:00 AM EST TH Visit (TeleHealth) [place] [address] Candy Clifford MD [facility] DR [facility] [address] Scheduled Procedures Name Priority Associated Diagnoses Date/Ti me EGD, UPPER GI ENDOSCOPY (WRV U 2.09) Hepatic cirrhosis, unspecified hepatic cirrhosis type, unspecified whether ascites present documented as of this encounter Goals Goal Patient Goal Type Associated Problems Recent Progress Patient-Stated? Author movement Exercise On track(2021 11:16 AM EDT) No Pankaj Mcadams Note: Try gentle movement like chair yoga, t'ai chi and qigong. [facility] will send hand-outs. Use resistance bands. [facility] will request a set be mailed. Movement [...] meal ideas in the [employer] [facility] Keep food log until you are seen by the dieititian. Record everything you eat or drink, include time eaten and any emotional changes that are significant. relaxation/sleep Lifestyle No Pankaj Mcadams Note: Try some meditation/relaxation apps when I wake in the night and can't go back to sleep. [facility] will send some to try. Tried apps but don't really like them as I like the quiet when going to sleep. [facility] 04/23 documented as of this encounter Visit Diagnoses Not on filedocumented in this encounter Care Teams Corpsman Relationship Specialty Start Date End Date Justino Lucia MD PCP - General Family Medicine 10/04/21 documented as of this encounter
--- OUTSIDE RECORDS SUMMARY | 2024-07-07 13:39 | XMS_ITS | Encounter Summary ---
Author Organization [facility] [place] [address] Care Team Providers Care Inventory Control Specialist Name Role Phone Page, Aleida Lopez APRN Primary Care Provider [phone] Encounter Details Date Type Department Care Team (Late st Contact Info) Description 04/06/2021 Ancillary Procedure Radiology Library at [facility] [place] [address] Justino Lucia MD [address] [place] [address] [place] [address] Social History Tobacco Use Types Packs/Day Years [...] 07/22/2024 9:00 AM EST Appointment [place] [address] Ana Ho MD [facility] GASTROENTEROLOGY [place], [place] [phone] 07/22/2024 10:00 AM EST Laboratory Appointment Lab [address] [place] [address] 07/22/2024 11:00 AM EST Office [place] [address] Ana Ho MD [facility] [place] [address] 09/15/2024 10:00 AM EST TH Visit (TeleHealth) [place] [address] Candy Clifford MD [facility] DR [facility] [address] Scheduled Procedures Name Priority Associated Diagnoses Date/Ti me EGD, UPPER GI ENDOSCOPY (WRV U 2.09) Hepatic cirrhosis, unspecified hepatic cirrhosis type, unspecified whether ascites present documented as of this encounter Procedures Procedure Name Priority Date/Time Associated Diagnosis Comments FILM LIBRARY STORAGE ONLY ULTRASOUND STUDY Routine 04/06/2021 12:00 AM EDT documented in this encounter Results * Film Library- Storage Only Ultrasound Study (04/06/2021 12:00 AM EDT) Narrative [facility] [place] - 11/20/2021 4:51 PM EDT This exam is auto-finalizing. It's purpose is for storage only. Justino Lucia MD IMG FILM LIBRARY ORD ERABLES [place], [place] documented in this encounter Visit Diagnoses Not on filedocumented in this encounter Care Teams Inventory Control Specialist Relationship Specialty Start Date End Date Nida, Aleida Lopez APRN [address] [place] [address] PCP - General Family Medicine 05/02/17 10/03/21 documented as of this encounter
--- OUTSIDE RECORDS SUMMARY | 2024-07-07 13:39 | XMS_ITS | Encounter Summary ---
Author Organization Formerly [facility] Address [facility] [place] [address] Care Team Providers Care Chief Deputy Clerk/Bailiff Name Role Phone Justino Lucia MD Primary Care Provider [phone] Reason for Referral * Diagnostic Test (Routine) - Closed Specialty Diagnoses / Procedures Referred By Contchristy tucker Referred To Contact Radiology Diagnoses Cirrhosis of liver without ascites, unspecified hepatic cirrhosis type Procedures CT Abdomen w Contrast CT Abdomen wwo Contrast Glenn Cardoso PA [address] [place] [id number] [facility] [place] [address] Referral ID Status Reason Start Date Expiration Date V isits Requested Visits Authorized [id number] Closed Specialty Service Requested 02/02/2022 07/23/2022 1 1 Encounter Details Date Type Department Care Team (Late st Contact Info) Description 02/01/2022 Orders [place] [phone] Glenn Cardoso PA [address] [place] [address] Cirrhosis of liver without ascites, unspecified hepatic [...] 07/22/2024 9:00 AM EST Appointment Ultrasound at [place] [phone] Ana Ho MD [facility] [place] [address] 07/22/2024 10:00 AM EST Laboratory Appointment Lab [address] [place] [phone] 07/22/2024 11:00 AM EST Office Visit Gastroenterology at [place] [phone] Ana Ho MD [facility] [place] [address] 09/15/2024 10:00 AM EST TH Visit (TeleHealth) Weight and Wellness at [place] [phone] Candy Clifford MD [facility] DR [address] [place] [address] Scheduled Procedures Name Priority Associated Diagnoses Date/Ti [...] opportunity to start with protein (cottage cheese, mosotho yogurt, protein smoothies, chicken or chicken salad [...] documented as of this encounter Results * CT Abdomen w [...] have questions please contact the health direct care supervisor that requested your imaging first. ? Narrative 05/14/2022 11:32 AM EDT EXAMINATION: CT [...] resident's interpretationand agree with the findings, Jim Segal MD at 05/14/2022 11:32 AM Thank you for letting us participate in the care of this patient. If youare a health care provider and have any questions regarding this report,please contact the number below. For patients who have questions please contactthe health direct care supervisor that requested your imaging first. Rea Hickey MD IMG CT ORDERABLES * (ABNORMAL) Prothrombin Time (05/14/2022 7:58 AM EDT) Prothrombin Time 13.2(H) 9.4 - 12.5 sec [facility] International Normalization Ratio 1.2 [facility] Comment: An INR <2.0 [...] Lab Rea Hickey MD HEMATOLOGY ORDERABLE S [facility] [place] [address] * Comprehensive metabolic panel (non-fasting) (05/14/2022 7:58 AM EDT) Glucose 107 65 - 199 mg/dL [facility] Comment:Diabetes: >=200 mg/d L plus symptoms Blood Urea Nitrogen 13 8 - 18 mg/dL [facility] Creatinine 0.81 0.70 - 1.20 mg/dL [facility] Sodium 140 135 - 145 mmol/L [facility] Potassium 4.0 3.5 - 5.0 mmol/L [facility] Comment: Please note: ??Patients with WBC >100,000 may have falsely elevated Potassium levels. ??For accurate Potassium quantification in these patients send serum separator tube (gold top) for subsequent determinations. ??Contact the Clinical Chemistry Laboratory if there are any questions. Chloride 104 98 - 107 mmol/L [facility] Carbon Dioxide 27 22 - 31 mmol/L [facility] Anion Gap 9 5 - 15 mmol/L [facility] Calcium 9.4 8.5 - 10.5 mg/dL [facility] Protein, Total 6.7 6.1 - 8.0 g/dL [facility] Albumin 3.9 3.2 - 5.2 g/dL [facility] Aspartate Aminotransferase 24 0 - 30 unit/L [facility] Alanine Aminotransferase 18 0 - 30 unit/L [facility] Alkaline Phosphatase 60 35 - 105 unit/L [facility] Bilirubin, Total 1.0 0.2 - 1.3 mg/dL [facility] Est Glomerular Filtration Rate 78 >=60 mL/min/1. 73 m?? [facility] Comment: This patient's estimated [...] In Lab Rea Hickey MD CHEMISTRY ORDERABLES [facility] [place] [address] documented in this encounter Visit Diagnoses Diagnosis Cirrhosis of liver without ascites, unspecified hepatic cirrhosis type Cirrhosis of liver without ascites, unspecified hepatic cirrhosis type documented in this encounter Care Teams Chief Deputy Clerk/Bailiff Relationship Specialty Start Date End Date Justino [place] MD PCP - General Family Medicine 10/04/21 documented as of this encounter
--- OUTSIDE RECORDS SUMMARY | 2024-07-07 13:40 | XMS_ITS | Encounter Summary ---
Author Organization [place] [address] Care Team Providers Care Case Hardener Name Role Phone Amber Ratliff APRN Primary Care Provider Encounter Details Date Type Department Care Team (Late st Contact Info) Description 02/07/2016 Telephone Cardiology at [address] [phone] Jaswant [place] Jr., MD [address] [place], [place] [phone] Social History Tobacco Use Types Packs/Day Years [...] encounter Miscellaneous Notes * Telephone Encounter - Krupa Polanco RN - 02/07/2016 12:40 PM EDT Amber sent an EKG and Dr. [place] saw it and instructed Amber to send her to the ER via ambulance * Telephone Encounter - Chelsea Wilson - 02/07/2016 11:[address] Amber Ratliff called RE pt Telma Richter 52 she had never seen her before. She wants to speak w/ Dr. Malick DAI. She is having Pt stay until she speaks to Dr. [place]. Dr. Ratliff phone # is [phone] Dr [place] knows about this documented in this encounter Plan of Treatment Upcoming Encounters Date Type Department Care Team (Late st Contact Info) Description 07/22/2024 9:00 AM EST Appointment Ultrasound at [place] [phone] Ana Ho MD [facility] [place] [address] 07/22/2024 10:00 AM EST Laboratory Appointment Lab [address] [place] [phone] 07/22/2024 11:00 AM EST Office Visit Gastroenterology at [place] [phone] Ana Ho MD [facility] [place] [address] 09/15/2024 10:00 AM EST TH Visit (TeleHealth) [place] [phone] Candy Clifford MD [facility] DR [facility] [address] Scheduled Procedures Name Priority Associated Diagnoses Date/Ti me EGD, UPPER GI ENDOSCOPY (WRV U 2.09) Hepatic cirrhosis, unspecified hepatic cirrhosis type, unspecified whether ascites present documented as of this encounter Visit Diagnoses Not on filedocumented in this encounter Care Teams Case Hardener Relationship Specialty Start Date End Date Amber Ratliff, MACHINIST SET UP [address] [place] [address] PCP - General Family Medicine 02/07/16 05/01/17 documented as of this encounter
--- OUTSIDE RECORDS SUMMARY | 2024-07-07 13:40 | XMS_ITS | Encounter Summary ---
Author Organization [facility] Address [facility] [place] [address] Care Team Providers Care Cardiac Nurse Specialist Name Role Phone Amber Ratliff Alber [place] Primary Care Provider Encounter Details Date Type Department Care Team (Latest Contact Info) Description 03/13/2016 - 03/13/2016 11:59 PM EDT Hospital Encounter Radiology Library at [facility] [place] [address] Sabas Benito MD [address] [place] [address] [place] [address] Pain Discharge Disposition: Home Social History Tobacco Use [...] Sig Dispensed Refills Start Date End Date atorvastatin (LIPITOR) 20 mg Tablet Take 1 tablet by mouth daily. 30 tablet 3 02/09/2016 cholecalciferol, Vitamin D3, 50 mcg (2,000 unit) Capsule Take 1 capsule by mouth Daily. albuteroL 90 mcg/actuation HFA Aerosol Inhaler Inhale 2 puffs into the lungs every 4 hours as needed for Wheezing. Use with spacer aspirin 81 mg Tablet, Chewable Take 81 mg by mouth daily. 30 tablet 3 02/09/2016 06/06/2017 acetaminophen (TYLENOL) 500 mg Tablet Take 500 mg by mouth every 6 hours as needed for Pain. 06/06/2017 omeprazole (PRILOSEC) 20 mg Capsule, Delayed Release(E.C.) Take 20 mg by mouth daily. 12/14/2021 documented as of this encounter Plan of Treatment Upcoming Encounters Date Type Department Care Team (Late st Contact Info) Description 07/22/2024 9:00 AM [place] [phone] Ana Ho MD [facility] [place] [address] 07/22/2024 10:00 AM EST Laboratory Appointment Lab [address] [place] [phone] 07/22/2024 11:00 AM EST Office [place] [phone] Ana Ho MD [facility] [place] [address] 09/15/2024 10:00 AM EST TH Visit (TeleHealth) [place] [phone] Candy Clifford MD [facility] DR [facility] [facility] [address] Scheduled Procedures Name Priority Associated Diagnoses Date/Ti me EGD, UPPER GI ENDOSCOPY (WRV U 2.09) Hepatic cirrhosis, unspecified hepatic cirrhosis type, unspecified whether ascites present documented as of this encounter Procedures Procedure Name Priority Date/Time Associated Diagnosis Comments FILM LIBRARY STORAGE ONLY CT ABDOMEN AND PELVIS Routine 03/13/2016 12:00 AM EDT Pain documented in this encounter Results * Film Library- Storage Only CT Abdomen & Pelvis (03/13/2016 12:00 AM EDT) Narrative [facility] - 04/07/2016 10:49 AM EDT This exam is for storage only and is auto-finalizing. Sabas Benito MD IMG FILM LIBRARY ORD ERABLES [place], [place] documented in this encounter Visit Diagnoses Diagnosis Pain Generalized pain documented in this encounter Care Teams Cardiac Nurse Specialist Relationship Specialty Start Date End Date Amber Ratliff, SPA MANAGER [address] [place] [address] PCP - General Family Medicine 02/07/16 05/01/17 documented as of this encounter
--- OUTSIDE RECORDS SUMMARY | 2024-07-07 13:40 | XMS_ITS | Encounter Summary ---
Author Organization [facility] [place] [address] Care Team Providers Care Opener Tender Name Role Phone Kathleen Ratliff RIGOBERTO Primary Care Provider [phone] Reason for Visit * Auth/Cert Specialty Diagnoses / Procedures Referred By Marcelo tucker Referred To Contact Diagnoses Atypical angina NSTEMI/ ST ELevation Referral ID Status Reason Start Date Expiration Date Visits Re quested Visits Authorized [id number] 1 1 Encounter Details Date Type Department Care Team (Late st Contact Info) Description 02/07/2016 2:00 PM EDT - 02/07/2016 3:00 PM EDT [place] [address] Flavio Daniels MD [facility] [place] [address] Cardiac Catheterization Social History Tobacco Use Types Packs/Day Years [...] Sign Reading Time Taken Comments Blood Pressure 117/91 02/08/2016 11:54 AM EDT Pulse 82 02/08/2016 11:54 AM EDT Temperature 37.1 ??C (98.8 ??F) 02/08/2016 7:42 AM ED T Respiratory Rate 16 02/08/2016 11:5 4 AM EDT Oxygen Saturation 94% 02/08/2016 11: 54 AM EDT Inhaled Oxygen Concentration - - Weight 120.9 kg (266 lb 8.6 oz) 02/08/2016 6:26 AM EDT Height 159.4 cm (5' 2.75) 02/07/2016 1 0:40 PM EDT Body Mass Index 47.59 02/07/2016 10:40 PM EDT documented in this encounter Discharge Summaries * Madeline Price MD - 02/08/2016 12:13 PM EDT Cardiology - Discharge Summary Patient Name: Sherron Richter Patient Age: 65 y.o. Birthdate: 1950 Admit date: 02/07/2016 Discharge date and time: 02/08/2016 Attending Physician: Dr. Lara Follow-up Recommendations for Providers: #Patient was taken to cath for initial ST elevation and trop elevation. yard laborer did not find sign of acute ischemia. Please ensure that patient continues to have chest pain free #Patient was newly started on asa and atorvastatin. Please ensure to follow up with LFT. #We stopped furosemide and spironolactone because patient was noted to have orthostatic. Please restart these medications. Discharge Diagnoses (Hospital Problems) and Secondary Diagnoses (Chronic Problems): Active Hospital Problems Diagnosis ??? Atypical angina Resolved Hospital Problems Diagnosis Date Resolved No resolved problems to display. Procedures/Cardiac Studies: Cath 02/06 Hemodynamics: Left Heart Pressures Resting: Syst Diast EDP a v m Ao 99 58 77 LV 158 15 Post Contrast: Syst Diast EDP a v m Ao 124 64 89 LV 133 23 Left Ventriculography: View YOUNG Overall LV Hypercontractile left ventricular function. Function: Estimated LV Ejection Fraction: 75% Mitral 1+ Regurgitation: Hyperkinetic LV with near obliteration of mid cavity and diminished apex to base shortening. Coronary Angiography: Dominance: Right Left Main The left main was normal. Left Anterior Descending There was mild diffuse disease of the mid 2 segment of the left anterior descending artery (LAD). The LAD was large. Left Circumflex There was a 20% single discrete stenosis of the ostial segment of the first obtuse marginal branch (OM1) of the left circumflex (LCX). The OM1 was large. Right Coronary Artery There was mild diffuse disease of the proximal segment of the right coronary artery (RCA). The RCA was large. Vascular Access: Vascular Access Angiogram: A selective angiogram at the right femoral artery revealed no significant obstructive disease. Vascular Access Management: A 6 Fr Perclose was deployed at the right femoral artery access site. This device was successful. Conclusions: * Nonobstructive coronary artery disease * Hypercontractile left ventricular function (EF-75%) * Mild mitral regurgitation Complications/Events: The patient had no complications during these procedures. Recommendations: Based upon the results of this procedure, it was recommended that the patient be managed with medical therapy. History of Presentation: This is a 65 yo f with cirrhosis, Hep C, HTN, no hx of ASCVD history available in the chart here intr[facility]fer from [facility]. Patient initially presented to her PCP forchest pain and lethargy. Over 2wks, she did not feel well. Had fatigue and weakness. Her chest painstarted on Saturday while shopping. She also noted to have numbness mouth, extreme fatigue, headache,dizziness, coughing lately from asthma. No fever or signs of infection. No recent illness. She did not have prior chest pain like this before. She had her pain all day on Saturday and her chest pain got better on the following day. However, she became more lethargic and presented to PCP. Initial tropwas noted to be at 3.9 (UNL 0.06). CXR was clear at [place] ED. Initial EKG was notable for ST elevation at II, III, aVF and V4-6. Patient was loaded with Plavix 600, asa 325, and heparin gtt. Of note, patient noted heart murmur since childhood. OSH Lab TropI 3.9 (UNL: 0.06) INR 1.2 Mag 1.8 (1.8-2.4) Na 142 K 3.6 Cl 105 CO2 29 BUN 10 Cretinine 0.94 Ca 9.1 7.5>13.9<228 Hospital Course: #Chest pain 65 yo woman transferred from [place] as a STEMI. She had chest discomfort on Saturday and went to her PCP this AM. EKG revealed ST elevation in the inferior and anterolateral leads and she was sent to the ER. EKGs transmitted to [facility] and due to recurrent chest pain she was brought to the optical lab technician at [facility]. ?? During helicopter transfer she had chest discomfort and EKG confirmed the same findings with ST elevation in the inferior and lateral leads. Given NTG and Toradol. Cath performed and revealed anatomically clear coronaries and a hyperdynamic LV with apical akinesia. UDS came back negative. TTE performed on 02/07 was unremarkable. Trop has been flat. Pt remained CP free. It is unclear what caused herST and trop change. Important Studies and Lab Data: Discharge Labs: Recent Labs 02/08/16 0625 02/07/16 1810 WBC 7.0 7.2 HGB 12.0 13.2 PLATELET 200 203 Recent Labs 02/08/16 0625 02/07/16 1810 NA 141 141 K 4.1 4.0 CL 105 103 CO2 24 24 BUN 10 10 CREATININE 0.73 0.79 GLUCOSE 95 89 Recent Labs 02/08/16 0625 02/07/16 1810 CALCIUM 8.2* 8.7 MAGNESIUM -- 0.71 Recent Labs 02/08/16 0625 02/07/16 2345 02/07/16 1810 CK 136 158 178* TROPONINT 0.48* 0.47* 0.50* Recent Labs 02/07/16 1810 AST 45* ALT 16 ALKPHOS 74 BILITOT 1.0 BILIDIR 0.3 No results for input(s): INR in the last 168 hours. No results for input(s): HA1C in the last 7068 hours. UDS negative except for marijuana. Studies: SUMMARY: 1. The left ventricular chamber size is normal. Left ventricular wall thickness is normal. Global left ventricular systolic function appears hyperdynamic. The quantitative left ventricular ejection fraction by biplane Pickard's method is 83%. There is a suggestion in some views of hypokinesis at the apex. 2. There is acceleration of flow accross the LVOT by color dopper. The peak left ventricular outflow tract gradient at rest is 19 mmHg. There is no upper septal hypertrophy and no apparent RADAMES of the mitral valve and therefore this gradient may be due to the hyperdynamic LV function. 3. Right ventricular chamber size, wall thickness, and systolic function are within normal limits. The estimated pulmonary artery systolic pressure is 26 mmHg. 4. There is mild (1+/4+) mitral regurgitation present. 02/07 EKG Normal sinus rhythm Nonspecific ST abnormality Abnormal ECG Discharge Conditions/Prognosis: Stable. Chest pain free Discharge to: Home Discharge Medications: Your Medications New Medications Dose Details aspirin 81 mg Chew Take 81 mg by mouth daily. Start taking on: 02/09/2016 81 mg Quantity: 30 tablet Refills: 3 atorvastatin 20 mg Tab Commonly known as: LIPITOR Take 1 tablet by mouth daily. Start taking on: 02/09/2016 20 mg Quantity: 30 tablet Refills: 3 Continued medications, unchanged Dose Details acetaminophen 500 mg Tab Commonly known as: TYLENOL Take 500 mg by mouth every 6 hours as needed for Pain. 500 mg Refills: 0 cholecalciferol (Vitamin D3) 2,000 unit Cap Take by mouth. Generic drug: cholecalciferol (Vitamin D3) Refills: 0 omeprazole 20 mg Cpdr Commonly known as: PriLOSEC Take 20 mg by mouth daily. 20 mg Refills: 0 VENTOLIN HFA 90 mcg/actuation Hfaa Inhale 2 puffs into the lungs every 4 hours as needed for Wheezing. Use with spacer Generic drug: albuterol 2 puff Refills: 0 STOPPED Medications furosemide 20 mg Tab Commonly known as: LASIX spironolactone 50 mg Tab Commonly known as: ALDACTONE Updated Allergies/ADRs: No Known Allergies General Instructions None Patient Instructions Patient Instructions on Discharge to Home Why you were hospitalized: heart injury from unclear etiology New Medications: Aspirin: this is a platelet inhibitor that will help prevent clot build up in your arteries, as well as in the stent that was placed. Continue taking 81mg daily indefinitely. Atorvastatin (lipitor): this is a cholesterol-lowering medication that helps prevent build up of plaque in your arteries. Take this every evening. Medication Changes: New 1) Aspirin 2) Atorvastatin Stopped 1) furosemide 2) spironolactone Please talk with your PCP regarding restarting both furosemide and spironolactone as you will eventually need them for your cirrhosis. They were held while you were in hospital and was discontinued upon discharged because you were too volume depleted. When to call your doctor: - Chest pain, worsening shortness of breath, fatigue with usual exertion, or new rest/night time symptoms. - Weigh yourself daily and record; if you note an increase of more than 2-3 pounds in 2 days, or 5 pounds over a week, contact your health care provider. - If you become short of breath, cannot lie down to sleep, or have swelling in your legs/ankles or abdomen, contact your health care provider. - Call if you have reduced urination during the day or increased urination at night. - Call for signs of increased wound drainage, redness, swelling, or increased pain at the site of your cardiac cath. - Call if you develop a temp >100.5 If you have non-emergent questions between now and the time of your follow up appointments: During 8am-5pm Saturday through Saturday call [phone] to speak with a nurse in the cardiology clinic All other times call [phone] and ask to speak to the cardiology nurse practitioner director of extension work. Diet: - Heart healthy: low salt, low fat, low concentrated sweets. Remember to avoid added salt, canned foods, processed foods (ie hot dogs, sausage, cold meats), and foods naturally high in salt, such as potato chips or pizza. Driving: - Per your routine after [address] if you feel dizzy, light headed, or are taking narcotic medications (ie/ Oxycodone, Morphine, Dilaudid, etc). Shower/Bath: - You may not sit in water for 5 days (tub bath, hot tub or pool). Smoking cessation: - If you are currently a smoker, you are strongly urged to stop smoking! Smoking increases the severity and incidence of heart disease, and is a risk factor for cancer and emphysema. Your health careprovider can provide specific measures to assist you, including nicotine supplements, anti-anxiety meds, and support groups in your community. Follow up Appointments: 02/14/2016 1:30PM With KATHLEEN RATLIFF APRN (your PCP) Your Inpatient Doctor(s) at [facility]: Riley Lara MD - Attending physician Espinoza Chaidez MD - Resident physician Madeline Price - Electromedical Equipment Technician physician Your Primary Care Provider: KATHLEEN RATLIFF APRN [address] [facility] [id number] For questions regarding issues relating to your hospitalization on the Hospital Medicine Service, please contact your inpatient physician through the [facility] Armament Mechanic [phone]. Issues after hours and on weekends will be handled by the Hospitalist staff on-call. For questions regarding this document or issues relating to this hospitalization on the Medical Service, please contact your inpatient physician through the [facility] Armament Mechanic . Issues afterhours and on weekends will be handled by the [employer] staff on-call. Signed: Madeline Price Internal Medicine, PGY1 Cardiology Team [id number] 02/08/2016 documented in this encounter Discharge Instructions * Patient Instructions* Espinoza Chaidez MD - 02/08/2016 12:03 PM EDT Patient Instructions on Discharge to Home Why you were hospitalized: heart injury from unclear etiology New Medications: Aspirin: this is a platelet inhibitor that will help prevent clot build up in your arteries, as well as in the stent that was placed. Continue taking 81mg daily indefinitely. Atorvastatin (lipitor): this is a cholesterol-lowering medication that helps prevent build up of plaque in your arteries. Take this every evening. Medication Changes: New 1) Aspirin 2) Atorvastatin Stopped 1) furosemide 2) spironolactone Please talk with your PCP regarding restarting both furosemide and spironolactone as you will eventually need them for your cirrhosis. They were held while you were in hospital and was discontinued upon discharged because you were too volume depleted. When to call your doctor: - Chest pain, worsening shortness of breath, fatigue with usual exertion, or new rest/night time symptoms. - Weigh yourself daily and record; if you note an increase of more than 2-3 pounds in 2 days, or 5 pounds over a week, contact your health care provider. - If you become short of breath, cannot lie down to sleep, or have swelling in your legs/ankles or abdomen, contact your health care provider. - Call if you have reduced urination during the day or increased urination at night. - Call for signs of increased wound drainage, redness, swelling, or increased pain at the site of your cardiac cath. - Call if you develop a temp >100.5 If you have non-emergent questions between now and the time of your follow up appointments: During 8am-5pm Saturday through Saturday call [phone] to speak with a nurse in the cardiology clinic All other times call [phone] and ask to speak to the cardiology nurse practitioner director of extension work. Diet: - Heart healthy: low salt, low fat, low concentrated sweets. Remember to avoid added salt, canned foods, processed foods (ie hot dogs, sausage, cold meats), and foods naturally high in salt, such as potato chips or pizza. Driving: - Per your routine after [address] if you feel dizzy, light headed, or are taking narcotic medications (ie/ Oxycodone, Morphine, Dilaudid, etc). Shower/Bath: - You may not sit in water for 5 days (tub bath, hot tub or pool). Smoking cessation: - If you are currently a smoker, you are strongly urged to stop smoking! Smoking increases the severity and incidence of heart disease, and is a risk factor for cancer and emphysema. Your health careprovider can provide specific measures to assist you, including nicotine supplements, anti-anxiety meds, and support groups in your community. Follow up Appointments: 02/14/2016 1:30PM With KATHLEEN RATLIFF APRN (your PCP) Your Inpatient Doctor(s) at [facility]: Riley Lara MD - Attending physician Espinoza Chaidez MD - Resident physician Madeline Price - Electromedical Equipment Technician physician Your Primary Care Provider: KATHLEEN RATLIFF APRN [address] [facility] [id number] For questions regarding issues relating to your hospitalization on the Hospital Medicine Service, please contact your inpatient physician through the [facility] Armament Mechanic [phone]. Issues after hours and on weekends will be handled by the Hospitalist staff on-call. documented in this encounter Medications at Time [...] daily. 12/14/2021 documented as of this encounter Progress Notes * Pablo Ramirez RN - 02/08/2016 10:32 AM EDT Orthostatic hypotension VS as follows: Pt asymptomatic. 02/08/16 1006 02/08/16 1014 02/08/16 1022 Adult Vital Signs Heart Rate 81 75 88 BP 141/54 (lying) 123/64 (sitting after 5mins) 102/77 (standing after 5mins) MAP (NBP) 69 mmHg 79 mmHg 83 mmHg Resp 15 20 21 SpO2 98 % 98 % -- * Riley Lara MD - 02/08/2016 9:53 AM EDT STAFF ADDENDUM: I have reviewed the available records, interviewed and examined the patient. I have discussed the patient's medical history, differential diagnosis, and plan of therapy with Dr Price and have reviewed their note dated 02/08/2016 and I agree with their note and plan of therapy. Interval History: 65 yo woman transferred from [place] as a STEMI. She had chest discomfort on Saturday and went to her PCP this AM. EKG revealed ST elevation in the inferior and anterolateral leads and she was sent to the ER. EKGs transmitted to [facility] and due to recurrent chest pain she was brought to the optical lab technician at [facility]. ?? During helicopter transfer she had chest discomfort and EKG confirmed the same findings with ST elevation in the inferior and lateral leads. Given NTG and Toradol. Cath performed and revealed anatomically clear coronaries and a hyperdynamic LV with apical akinesia. ? Variant of Takutsubo. Admit to floor and serial enzymes and EKGs to be obtained, ECHO ECHO pending Will consider discharge Lab Comments: Multiple labs assessed. Problems Reviewed: ?? Takotsubo type Plan: As above * Madeline Price MD - 02/08/2016 6:27 AM EDT Inpatient Cardiology Progress Note Hospital Day 1 day Active Hospital Problems Diagnosis ??? Atypical angina Resolved Hospital Problems Diagnosis Date Resolved No resolved problems to display. Patient Active Problem List Diagnosis Code ??? Atypical angina I20.8 ID: Chest Pain 24 Hour Events/Subjective: -AVSS on RA -NAOE -c/o LH upon change in position (walking around) s/p IVF with good effect - CP, SOB, palpitations, PND, Orthopnea, dizziness/LH, LE swelling or pain, N/V/D/C/abd pain Inpatient Medications: Scheduled Meds: ??? aspirin 81 mg Oral Daily ??? heparin (porcine) 5,000 Units Subcutaneous Q8H NEHAL ??? sodium chloride 0.9 % 5 mL Intravenous BID ??? senna-docusate 2 tablet Oral BID ??? pantoprazole 40 mg Oral Daily Continuous Infusions: PRN Meds:.sodium chloride 0.9 %, lidocaine, acetaminophen, albuterol Vitals: Last value 24hr range T 37.1 ??C (98.8 ??F) Temp: [36.6 ??C (97.9 ??F)-37.1 ??C (98.8 ??F)] HR 82 Heart Rate: [75-102] BP (!) 117/91 BP: (90-141)/(52-91) RR 16 Resp: [12-26] SpO2 94 % SpO2: [94 %-100 %] Last value Initial Value Wt (!) 120.9 kg (266 lb 8.6 oz) (!) 121.1 kg (267 lb) Height 159.4 cm (5' 2.75) 159.4 cm (5' 2.75) Ins/Outs: Intake/Output Summary (Last 24 hours) at 02/08/16 1201 Last data filed at 02/08/16 1156 Gross per 24 hour Intake 3221.67 ml Output 1125 ml Net 2096.67 ml Telemetry: Remained SR Physical Exam: General: pleasant. NAD HEENT: anicteric.?? MMM, oropharynx clear. CV: S1, S2, RRR, 2/6 systolic murmur on LUSB/LLSB.?? No JVP elevation Lungs: Clear bilaterally anteriorly, no wheezes, rubs or rhonchi Abd: normal BS, soft, NT/ND, no bruits, no masses Cath: covered. No active bleeding Ext: warm, no clubbing, cyanosis. +2 edema. Neuro: AOx3 Labs: Recent Labs 02/08/16 0625 02/07/16 1810 WBC 7.0 7.2 HGB 12.0 13.2 HCT 35.6 38.2 PLATELET 200 203 No results for input(s): INR in the last 168 hours. Recent Labs 02/08/16 0625 02/07/16 1810 NA 141 141 K 4.1 4.0 CL 105 103 CO2 24 24 BUN 10 10 CREATININE 0.73 0.79 Recent Labs 02/07/16 1810 AST 45* ALT 16 ALKPHOS 74 BILITOT 1.0 BILIDIR 0.3 Recent Labs 02/08/16 0625 02/07/16 1810 CALCIUM 8.2* 8.7 MAGNESIUM -- 0.71 Recent Labs 02/08/16 0625 02/07/16 2345 02/07/16 1810 CK 136 158 178* TROPONINT 0.48* 0.47* 0.50* Recent Labs 02/08/16 0625 TSH 1.99 No results for input(s): HA1C in the last 7068 hours. Image UDS: neg except for Marijuana 02/[address] Lara EKG Normal sinus rhythm Nonspecific ST abnormality Abnormal ECG TTE 02/07 SUMMARY: 1. The left ventricular chamber size is normal. Left ventricular wall thickness is normal. Global left ventricular systolic function appears hyperdynamic. The quantitative left ventricular ejection fraction by biplane Pickard's method is 83%. There is a suggestion in some views of hypokinesis at the apex. 2. There is acceleration of flow accross the LVOT by color dopper. The peak left ventricular outflow tract gradient at rest is 19 mmHg. There is no upper septal hypertrophy and no apparent RADAMES of the mitral valve and therefore this gradient may be due to the hyperdynamic LV function. 3. Right ventricular chamber size, wall thickness, and systolic function are within normal limits. The estimated pulmonary artery systolic pressure is 26 mmHg. 4. There is mild (1+/4+) mitral regurgitation present. Cath 02/06 Conclusions: * Nonobstructive coronary artery disease * Hypercontractile left ventricular function (EF-75%) * Mild mitral regurgitation Assessment: This is a 65 yo f with cirrhosis, Hep C, HTN, no hx of ASCVD history available in the chart here intransfer from [facility] via [facility]. Patient initial presented to her PCP for chest pain and lethargy. Initial EKG was notable for ST elevation at II, III, aVF and V4-6. Trop was notable at 3.9 (0.06). Patient was taken to Cath. Patient was found not to have CAD. Last night she had orthostatic hypotension which well responded to fluid. UDS came back negative. TTE performed on 02/07 was unremarkable. Trop has been flat. Pt remained CP free. It is unclear what caused her ST and trop change but given hx of active diuretic use and orthostatic hypotension, we suspect her symptomsare due to dehydration. We will make close follow up with PCP. Plan: #Chest pain; ruled out CAD. -s/p Cath which was not suggestive of CAD -UDS negative -Continue to monitor trop -EKG -asa 81 #Dizziness -Orthostatic BP -Encourage PO #Cirrosis -Holding home lasix 40 for low volume status -Holding home spironolactone 50 #HepC S/p therapy Pt noted complete recovery # Housekeeping Diet: Cardiac diet Lines: PIV # Dispo: Pending course Code Status: Full DPOA Leila RICHTER Discussed patient with Dr. Jane Price MD PGY-1, Internal Medicine Team Pager [phone] 02/07/2016 documented in this encounter H&P Notes * Riley Lara MD - 02/07/2016 4:30 PM EDT STAFF ADDENDUM: I have reviewed the available records, interviewed and examined the patient. I have discussed the patient's medical history, differential diagnosis, and plan of therapy with Dr Price and have reviewed their note dated 02/06/2016 and I agree with their note and plan of therapy. Interval History: 65 yo woman transferred from [place] as a STEMI. She had chest discomfort on Saturday and went to her PCP this AM. EKG revealed ST elevation in the inferior and anterolateral leads and she was sent to the ER. EKGs transmitted to [facility] and due to recurrent chest pain she was brought to the optical lab technician at [facility]. During helicopter transfer she had chest discomfort and EKG confirmed the same findings with ST elevation in the inferior and lateral leads. Given NTG and Toradol. Cath performed and revealed anatomically clear coronaries and a hyperdynamic LV with apical akinesia. ? Variant of Takutsubo. Admit to floor and serial enzymes and EKGs to be obtained, ECHO Lab Comments: Multiple labs assessed. Problems Reviewed: Chest pain Plan: As above * Riley Lara MD - 02/07/2016 3:34 PM EDT Cardiology Admission Note Patient Name: Sherron Richter Service: Medicine Responsible Attending: Riley Lara MD Admission Date: 02/07/2016 3:29 PM CC: Chest pain HPI: [Pt in Cathlab, History taken from transport report and chart review] This is a 65 yo f with cirrhosis, Hep C, HTN, no hx of ASCVD history available in the chart here intransfer from [facility]. Patient initially presented to her PCP forchest pain and lethargy. Over 2wks, she did not feel well. Had fatigue and weakness. Her chest painstarted on Saturday while shopping. She also noted to have numbness mouth, extreme fatigue, headache,dizziness, coughing lately from asthma. No fever or signs of infection. No recent illness. She did not have prior chest pain like this before. She had her pain all day on Jan and her chest pain got better on the following day. However, she became more lethargic and presented to PCP. Initial tropwas noted to be at 3.9 (UNL 0.06). CXR was clear at [facility]. Initial EKG was notable for ST elevation at II, III, aVF and V4-6. Patient was loaded with Plavix 600, asa 325, and heparin gtt. Of note, patient noted heart murmur since childhood. OSH Lab TropI 3.9 (UNL: 0.06) INR 1.2 Mag 1.8 (1.8-2.4) Na 142 K 3.6 Cl 105 CO2 29 BUN 10 Cretinine 0.94 Ca 9.1 7.5>13.9<228 #Med Acetaminophen 500mg po Vitamin d3 2000 unit po cap Omeprazole 20mg po Furosemide 40 mg po Spironolactone 50mg Ventolin hfa 108 two puffs #No allergy #PMH Venous insufficiency Hep C cirrhoiss Asthma HTN Hiatal hernia Rotator cuffs. #PSH cholecystectomy in 1993 BTL 1987 #FM: Father: hypothyroidism Sis: CVA #SH No smoking and no drinking for [address] Using of [employer] ROS (positives in bold): ROS Constitutional: No fevers or chills, Fatigue Eyes:?? No vision changes, no diplopia, no blurry vision ENT: No rhinorrhea or pharyngitis, no meningismus CV: See HPI Resp: See HPI GI: No nausea, vomiting, diarrhea or constipation : No dysuria, no incontinence Heme: No bleeding or bruising Endo: No polyuria or cold intolerance Neuro: No dizziness/No TYSON Psych: No depression, normal sleep History Social History ??? Marital status: Single Spouse name: N/A ??? Number of children: N/A ??? Years of education: N/A Occupational History ??? Not on file. Social History Main Topics ??? Smoking status: Not on file ??? Smokeless tobacco: Not on file ??? Alcohol use: Not on file ??? Drug use: Not on file ??? Sexual activity: Not on file Other Topics Concern ??? Not on file Social History Narrative PE: Vitals: 02/07/16 1630 BP: 130/71 Pulse: 101 Resp: 24 O2 98% RA General: pleasant. NAD HEENT: anicteric.?? MMM, oropharynx clear. CV: S1, S2, RRR, 2/6 systolic murmur on LUSB/LLSB.?? No JVP elevation Lungs: Clear bilaterally anteriorly, no wheezes, rubs or rhonchi Abd: normal BS, soft, NT/ND, no bruits, no masses Cath: covered. No active bleeding Ext: warm, no clubbing, cyanosis. +2 edema. Neuro: AOx3 Skin: no rashes or lesions EKG: Initial EKG was notable for ST elevation at II, III, aVF and V4-6. Assessment: This is a 65 yo f with cirrhosis, Hep C, HTN, no hx of ASCVD history available in the chart here [facility]fer [facility] via [facility] air. Patient initial presented to her PCP for chest pain and lethargy. Initial EKG was notable for ST elevation at II, III, aVF and V4-6. Trop was notable at 3.9 (0.06). Patient was taken to Cath. Patient was found not to have CAD. Possible etiology include vasospasm (prinzmetal, cocaine), atypical variant of takotsubo, myocarditis, thromboembolic episode, etc.. Will admit her to [facility] for further evaluation. Plan: #Chest pain -s/p Cath which was not suggestive of CAD -UDS for cocaine induced angina -Continue to monitor trop -TSH -TTE AM - EKG #Cirrosis -continue home lasix 40 -continue home spironolactone 50 #HepC S/p therapy Pt noted complete recovery # Housekeeping Diet: Pending course Lines: PIV # Dispo: Pending course Code Status: Full DPOA Leila RICHTER Discussed patient with Dr. Jane Price MD PGY-1, Internal Medicine Team Pager [phone] 02/07/2016 STAFF ADDENDUM: I have reviewed the available records, interviewed and examined the patient. I have discussed the patient's medical history, differential diagnosis, and plan of therapy with Dr Price and have reviewed their note dated 02/08/2016 and I agree with their note and plan of therapy. documented in this encounter Miscellaneous Notes * Plan of Care - Pablo Ramirez, RN - 02/08/2016 8:48 AM EDT Problem: General Plan of Care Goal: Plan of Care Review 02/08/16 0055 02/08/16817 Plan of Care Review Plan of Care Outcome Status ongoing (interventions implemented as appropriate) -- Progress progress toward functional goals as expected -- Coping/Psychosocial Response Interventions Plan of Care Reviewed with -- patient Goal: Fall Prevention-Safe Patient Handling 02/08/1681702/08/16846 Musculoskeletal Interventions Activity/Level of Assistance up in room;with stand by assist -- Positioning independent -- Muscle Strengthening -- activity/mobility promoted;personal routines for BADL/IADL promoted;sittingon edge of bed encouraged;strengthening exercises performed;up in chair encouraged for meals and activities Self-Care Promotion independence encouraged while providing assistance;toileting assistance provided;personal/BADL objects within reach;personal routines for BADL/IADL promoted -- Activity and Safety Assistive Device None -- Camacho Fall Risk History of Falling 0 -- Secondary Diagnosis 15 -- Ambulatory Aids 0 -- Intravenous Therapy/Heparin/Saline Lock 20 -- Gait/Transferring 0 -- Mental Status 0 -- Score 35 -- OTHER Camacho Fall Risk Med -- Safety Interventions Safety Precautions/Fall Reduction supervised activity;loss prevention/safety district manager;room near unit station;nonskid shoes/slippers when out of bed;muscle strengthening facilitated;low bed;fall reduction program maintained;environmental modification -- Goal: Infection Control 02/08/16817 Coping/Psychosocial Response Interventions Counseling calming techniques promoted;emotional support provided;goal setting facilitated;verbalization of feelings encouraged;understanding of situation facilitated;relaxation techniques promoted Safety Interventions Isolation Precautions standard precautions maintained Infection Prevention bronchial hygiene promoted;environmental surveillance;hydration promoted;nutrition promoted;promote handwashing;rest/sleep promoted Goal: Discharge Needs Assessment 02/07/16 1900 02/07/16 2200 02/08/16846 Discharge Needs Assessment Concerns to be Addressed -- -- no discharge needs identified Readmission Within the Last 30 Days no previous admission in last 30 days -- -- Equipment Needed After Discharge none -- -- Current Health Anticipated Changes Related to Illness none -- -- Self-Care Equipment Currently Used at Home none -- -- Living Environment Transportation Available -- car;family or friend will provide -- Problem: Cardiac Catheterization with/without PCI (Adult) Intervention: Hemodynamic Stabilization 02/08/16817 Cardiac Interventions Hemodynamic Stabilization quiet environment promoted Intervention: Contrast Induced Nephropathy Management 02/08/16817 Genitourinary Interventions Contrast Induced Nephropathy Management fluids promoted Intervention: Fluid Management 02/08/16817 Nutrition Interventions Fluid Management fluids promoted;intravenous fluids adjusted Comments: OUTCOME EVALUATION NOTE: OUTCOME SUMMARY: Alert and oriented. VSS. SR with rare PVCs on tele. Right groin cath site CDI - no hematoma noted, pulses present. Denies chest pain. Pt had Echo this morning - refer to doc flowsheets. Pt received discharge ordered. Pt given post cath management information, chest pain management information, orthostatic hypotensive information via verbal and handout. Pt verbalized understanding ofpost cath management information, chest pain management information, orthostatic hypotensive information. D/C IV and tele per protocol. Pt went home with family, no services. * Plan of Care - Toshia Ruiz RN - 02/08/2016 1:06 AM EDT Problem: General Plan of Care Goal: Plan of Care Review Outcome: Ongoing (Interventions Implemented as Appropriate) 02/08/16 0055 Plan of Care Review Plan of Care Outcome Status ongoing (interventions implemented as appropriate) Progress progress toward functional goals as expected Coping/Psychosocial Response Interventions Plan of Care Reviewed with patient OUTCOME EVALUATION NOTE: OUTCOME SUMMARY: Pt c/o 2/10 chest discomfort at beginning of shift, relieved by position changes. Pt ambulated to bathroom with no issues. Following ambulation pt c/o dizziness and feeling like she will pass out. Blood pressure dropped to 90s/50s. No significant telemetry changes noted. Pt sitting in chair with blood pressure quickly returning to 114/63. Dr. Painter notified, ordered 500ml NS bolus with positive effect noted. Sepsis protocol warning noted when charting, Dr. Painter notified, RR noted at 25, pt afebrile with HR and BP WDL, no sepsis interventions orderd at this time. R femoral cath site with noissues. Pt resting comfortably at this time with no further c/o CP/discomfort. PLAN MOVING FORWARD: Monitor for any changes r/t hypotension/vasospasm. INDIVIDUALIZED FALL PREVENTION INTERVENTIONS: Patient-specific fall risk factors per assessment: [current deficits]: Cont. IV fluids Assistance [level of assistance required for transfers and ambulation]: SBA Supervision [direct monitoring required during toileting and ADLs]: yes Surveillance [continuous indirect monitoring]: Hourly rounding Patient-specific fall prevention interventions for sensory deficits provided, if applicable: Yes CPG GOAL OUTCOME EVALUATION: Goal: Fall Prevention-Safe Patient Handling Outcome: Ongoing (Interventions Implemented as Appropriate) 02/07/16220002/08/160 02/08/1654 Musculoskeletal Interventions Activity/Level of Assistance up in room;ambulated;with stand by assist -- -- Positioning independent -- -- Self-Care Promotion -- -- assistance provided to decrease frustration Activity and Safety Assistive Device -- -- None Camacho Fall Risk History of Falling 0 -- -- Secondary Diagnosis 15 -- -- Ambulatory Aids 0 -- -- Intravenous Therapy/Heparin/Saline Lock 20 -- -- Gait/Transferring 0 -- -- Mental Status 0 -- -- Score 35 -- -- OTHER Camacho Fall Risk Med -- -- Safety Interventions Safety Precautions/Fall Reduction -- environmental modification;low bed;nonskid shoes/slippers whenout of bed;room near unit station -- Goal: Infection Control Outcome: Ongoing (Interventions Implemented as Appropriate) 02/07/16174902/07/16220002/08/1619 Coping/Psychosocial Response Interventions Counseling emotional support provided;personal strengths integrated;reassurance provided;understanding of situation facilitated;verbalization of feelings encouraged -- -- Safety Interventions Isolation Precautions -- -- standard precautions maintained Infection Prevention -- rest/sleep promoted;promote handwashing -- Goal: Discharge Needs Assessment Outcome: Ongoing (Interventions Implemented as Appropriate) 02/07/162199 Living Environment Transportation Available car;family or friend will provide Problem: Cardiac Catheterization with/without PCI (Adult) Intervention: Hemodynamic Stabilization 02/08/1654 Cardiac Interventions Hemodynamic Stabilization legs elevated;quiet environment promoted Intervention: Dysrhythmia Management 02/08/1654 Cardiac Interventions Dysrhythmia Management anticoagulant management;fluid bolus Intervention: Contrast Induced Nephropathy Management 02/08/1654 Genitourinary Interventions Contrast Induced Nephropathy Management fluids promoted;preprocedure hydration performed Intervention: Fluid Management 02/08/16 0055 Nutrition Interventions Fluid Management fluids adjusted;fluids promoted;intravenous fluids adjusted;oral rehydration solution/therapy promoted Goal: Signs and symptoms of listed potential problems will be absent or manageable (reference (Cardiac Catheterization with/without PCI (Adult)) CPG) Outcome: Ongoing (Interventions Implemented as Appropriate) 02/08/16 0055 Cardiac Catheterization with/without PCI Problems Assessed (Cardiac Catheterization with/without PCI) all Problems Present (Cardiac Catheterization with/without PCI) fluid imbalance * Plan of Care - Consuelo Ivory RN - 02/07/2016 7:08 PM EDT Problem: General Plan of Care Goal: Plan of Care Review Outcome: Ongoing (Interventions Implemented as Appropriate) 02/07/16 1900 Plan of Care Review Plan of Care Outcome Status ongoing (interventions implemented as appropriate) Progress progress toward functional goals as expected Coping/Psychosocial Response Interventions Plan of Care Reviewed with patient OUTCOME EVALUATION NOTE: OUTCOME SUMMARY: Patient arrived from [facility] just before 1800. She has some achiness in chest. Right groin site is clean, dry and intact. No hematoma, bruising or bleeding. She has been up independently. Urine sent for drug screen. IV fluids running. VSS, sinus tach with known ST elevation on tele. PLAN MOVING FORWARD: Echo tomorrow, continue monitoring for chest pain and tele INDIVIDUALIZED FALL PREVENTION INTERVENTIONS: Patient-specific fall risk factors per assessment: [current deficits]: none Assistance [level of assistance required for transfers and ambulation]: independent Supervision [direct monitoring required during toileting and ADLs]: Call lee in reach and rings appropriately Surveillance [continuous indirect monitoring]: Purposeful hourly rounding ocntinued Patient-specific fall prevention interventions for sensory deficits provided, if applicable: N/A CPG GOAL OUTCOME EVALUATION: Goal: Fall Prevention-Safe Patient Handling Outcome: Ongoing (Interventions Implemented as Appropriate) 02/07/16 1750 Camacho Fall Risk History of Falling 0 Secondary Diagnosis 15 Ambulatory Aids 0 Intravenous Therapy/Heparin/Saline Lock 20 Gait/Transferring 0 Mental Status 0 Score 35 OTHER Camacho Fall Risk Med Safety Interventions Safety Precautions/Fall Reduction environmental modification;fall reduction program maintained;lighting adjusted for task/safety;nonskid shoes/slippers when out of bed Musculoskeletal Interventions Activity/Level of Assistance bed rest Goal: Infection Control Outcome: Ongoing (Interventions Implemented as Appropriate) 02/07/16 1750 Coping/Psychosocial Response Interventions Counseling emotional support provided;personal strengths integrated;reassurance provided;understanding of situation facilitated;verbalization of feelings encouraged Safety Interventions Isolation Precautions standard precautions maintained Infection Prevention bronchial hygiene promoted;environmental surveillance;hydration promoted;nutrition promoted;promote handwashing;rest/sleep promoted Goal: Discharge Needs Assessment Outcome: Ongoing (Interventions Implemented as Appropriate) 02/07/16 1900 Discharge Needs Assessment Concerns to be Addressed denies needs/concerns at this time Readmission Within the Last 30 Days no previous admission in last 30 days Equipment Needed After Discharge none Current Health Anticipated Changes Related to Illness none Self-Care Equipment Currently Used at Home none Living Environment Transportation Available family or friend will provide Problem: Cardiac Catheterization with/without PCI (Adult) Goal: Signs and symptoms of listed potential problems will be absent or manageable (reference (Cardiac Catheterization with/without PCI (Adult)) CPG) Outcome: Ongoing (Interventions Implemented as Appropriate) 02/07/16 1900 Cardiac Catheterization with/without PCI Problems Assessed (Cardiac Catheterization with/without PCI) all Problems Present (Cardiac Catheterization with/without PCI) acute pain documented in this encounter Plan of Treatment Upcoming Encounters Date Type Department Care Team (Late st Contact Info) Description 07/22/2024 9:00 AM EST Appointment [place] [phone] Ana Ho MD [facility] [place] [address] 07/22/2024 10:00 AM EST Laboratory Appointment Lab [address] [place] [phone] 07/22/2024 11:00 AM EST Office [place] [phone] Ana Ho MD [facility] [place] [address] 09/15/2024 10:00 AM EST TH Visit (TeleHealth) [place] [phone] Candy Clifford MD [facility] [address] Scheduled Procedures Name Priority Associated Diagnoses Date/Ti me EGD, UPPER GI ENDOSCOPY (WRV U 2.09) Hepatic cirrhosis, unspecified hepatic cirrhosis type, unspecified whether ascites present documented as of this encounter Procedures Procedure Name Priority Date/Time Associated Diagnosis Comments SIGNALMAN SCAN 02/09/2016 12:00 AM EDT CARDIAC CATH SCAN 02/09/2016 12: 00 AM EDT ECHO COMPLETE Routine 02/08/2016 10:11 AM EDT Chest pain, unspecified type EKG 12-LEAD Routine 02/08/2016 9:[address] elevation myocardial infarction (STEMI), unspecified artery HEMOGRAM Routine 02/08/2016 6:25 AM EDT DIFFERENTIAL, AUTOMATED Routine 02/08/2016 6:25 AM EDT CARDIAC ENZYMES ([facility]) STAT 02/08/2016 6:25 AM EDT CBC (WITH DIFF) Routine 02/08/2016 6:25 AM EDT TSH STAT 02/08/2016 6:25 AM EDT BASIC METABOLIC PANEL STAT 02/08/2016 6:25 AM EDT CARDIAC ENZYMES ([facility]) STAT 02/07/2016 11:45 PM EDT POCT GLUCOSE Routine 02/07/2016 9:37 PM EDT RAPID DRUG SCREEN W/ CONFIRMATION, URINE Routine 02/07/2016 6:33 PM EDT THC (MARIJUANA), URINE, CONFIRMATION Routine 02/07/2016 6:33 PM EDT HEMOGRAM Routine 02/07/2016 6:10 PM EDT DIFFERENTIAL, AUTOMATED Routine 02/07/2016 6:10 PM EDT BLUE TUBE HOLD Routine 02/07/2016 6:10 PM EDT CARDIAC ENZYMES ([facility]) STAT 02/07/2016 6:10 PM EDT CBC (WITH DIFF) Routine 02/07/2016 6:10 PM EDT MAGNESIUM Routine 02/07/2016 6:10 PM EDT COMPREHENSIVE METABOLIC PANEL Routine 02/07/2016 6:10 PM EDT FILM LIBRARY STORAGE ONLY DX CHEST Routine 02/07/2016 12:00 AM EDT Pain documented in this encounter Results * SCAN DOC: SIGNALMAN (02/09/2016 12:00 AM EDT) Anatomical Region Laterality Modality Other Scanning Provider MEDIA MGR SCAN EXT O RDR/RSLT * SCAN DOC: CARDIAC CATH (02/09/2016 12:00 AM EDT) Anatomical Region Laterality Modality Cardiac Other Scanning Provider MEDIA MGR SCAN EXT O RDR/RSLT * ECHO COMPLETE (02/08/2016 10:11 AM EDT) EF 83 HEARTKorrio SYSTEM Anatomical Region Laterality Modality Other 02/08/2016 Narrative 02/08/2016 10:39 AM EDT Procedure: ?Transthoracic Echocardiogram Patient: ?GRIFFIN SHERRON ? (Age): 1950(65y) Med Rec#: ? [id number] ?Sex: ?F ? Site Loc: ? [facility] ?Ht / Wt: ??159(cm)/121(kg) Pt. Loc: ?[facility] ? BSA: ?2.18 Study Date: ?? 02/08/2016 ?Pt. Type: Inpatient Tape: ? Referring: Riley Lara Referring: CYNDY Reading: Chele Garcia ([id number]) [employer] Loader And Unloader: Carmen Arriaza Diagnosis: *ICD-10-PCS Chest pain, unspecified (R07.9) CPT Codes: *Echo Full (10801) *Spectral Doppler (42264) *Color Doppler (12903) BP: ? 122/56 SUMMARY: 1. The left ventricular chamber size is normal. Left ventricular wall thickness is normal. Global left ventricular systolic function appears hyperdynamic. The quantitative left ventricular ejection fraction by biplane Pickard's method is 83%. There is a suggestion in some views of hypokinesis at the apex. 2. There is acceleration of flow accross the LVOT by color dopper. The peak left ventricular outflow tract gradient at rest is 19 mmHg. ??There is no upper septal hypertrophy and no apparent RADAMES of the mitral valve and therefore this gradient may be due to the hyperdynamic LV function. 3. Right ventricular chamber size, wall thickness, and systolic function are within normal limits. The estimated pulmonary artery systolic pressure is 26 mmHg. 4. There is mild (1+/4+) mitral regurgitation present. Findings ? : Left Ventricle: ? The left ventricular chamber size is normal. ?Left ventricular wall thickness is normal. ?The peak left ventricular outflow tract gradient at rest is 19 mmHg. ?Global left ventricular systolic function appears hyperdynamic. ?The quantitative left ventricular ejection fraction by biplane Pickard's method is 83%. ?There are left ventricular segmental wall motion abnormalities present, as shown in the diagram below. ?Doppler assessment is consistent with normal left sided filling pressure. Left Atrium: ? The left atrium is normal in size. Right Ventricle: ? Right ventricular chamber size, wall thickness, and systolic function are within normal limits. ?The estimated pulmonary artery systolic pressure is 26 mmHg. ?The estimated right atrial pressure is 3 mmHg. Right Atrium: ? The right atrium is normal in size. Aortic Valve: ? The aortic valve is probably tricuspid.but is not well visualized. ?Systolic excursion of the aortic valve is normal. ?There is no evidence of aortic valve stenosis. ?There is no evidence of aortic regurgitation. Mitral Valve: ? The mitral valve leaflets appear normal. ?There is mild (1+/4+) mitral regurgitation present. Tricuspid Valve: ? The tricuspid valve leaflets are morphologically normal. ?There is trace tricuspid regurgitation present. Pulmonic Valve: ? The pulmonic valve is not well visualized. ?The pulmonic valve is probably normal. Pericardium: ? The pericardium appears normal and there is no evidence of a pericardial effusion. Aorta: ? The aortic root is normal in size. ?The ascending aorta is normal in size. Pulmonary Artery: ? The main pulmonary artery appears normal. Venous: ? The inferior vena cava appears normal in size. ?There is a greater than 50% respiratory change in the inferior vena cava dimension. Misc: ? Two-dimensional echo, spectral Doppler and color Doppler performed. Chambers 2D ?Value ?Units (Range) ? IVSd (2D) ? 1 ?cm ? LVPWd (2D) ?0.9 ?cm ? LVIDd (2D) ?4 ?cm ? LVIDs (2D) ?2.4 ?cm ? LVIDd (2D) index ?1.8 ?cm/m2 ? LVIDs (2D) index ?1.1 ?cm/m2 ? LV FS (2D) ?39 ? % ? Ao root diameter (2D2.8 ?cm (2.1 - 3.6) ? Ascending Ao ?3 ?cm (2 - 3.5) ? Volumes/Mass ?Value ?Units (Range) ? LA Area 4 CH ?20.4 ? cm2 (<21) ? LA ESV BP (A/L) inde31.7 ? ml/m2 ? RA AREA 4CH ? 15.1 ? cm2 ? LA ESV SP 4CH (MOD) 55.6 ? ml ? LA ESV SP 2CH (MOD) 73.4 ? ml ? LV ESV SP 4CH (MOD) 18.4 ? ml ? LV ESV SP 2CH (MOD) 16.2 ? ml ? LV EDV BP ? 105.2 ?ml ? LV ESV BP ? 17.4 ? ml ? BP EF (MOD) ? 83 ? % ? LV mass (2D) ?119.1 ?g ? LV mass (2D) index ??54.6 ? g/m2 ? Diastolic/Systolic Function ?Value ?Units (Range) ? MV E-wave Vmax ?1.2 ?m/sec ? MV deceleration dbng204.7 ?msec ? MV A-wave Vmax ?1.4 ?m/sec ? MV E:A ratio ?0.9 ?ratio ? LV septal e' Vmax ?? 0.1 ?m/sec ? LV lateral e' Vmax ??0.1 ?m/sec ? LV average e' Vmax ??0.1 ?m/sec ? LV average E:e' rati13.3 ? ratio ? Aortic Valve ?Value ?Units (Range) ? AV Vmax ? 2.5 ?m/sec ? AV VTI ?54.2 ? cm ? AV peak gradient ?25 ? mmHg ? AV mean gradient ?13 ? mmHg ? LVOT diameter ? 1.7 ?cm ? LVOT Vmax ? 2.1 ?m/sec ? LVOT VTI ?45.8 ? cm ? LVOT peak gradient ??19 ? mmHg ? LVOT mean gradient ??9.5 ?mmHg ? DOI (VTI) ? 0.9 ?ratio ? DOI (Vmax) ?0.8 ?ratio ? SV LVOT ? 104.7 ?ml ? CO LVOT ? 8.4 ?l/min ? Cardiac index ? 3.9 ?l/min/m2 ? NEY (continuity Vmax1.9 ?cm2 ? NEY (continuity Vmax0.9 ?cm2/m2 ? NEY (continuity VTI)1.9 ?cm ? NEY (continuity VTI)0.9 ?cm2/m2 ? Tricuspid Valve ?Value ?Units (Range) ? TR Vmax ? 2.4 ?m/sec ? TR peak gradient ?23 ? mmHg ? RAP ? 3 ?mmHg ? RVSP ?26 ? mmHg ? Measurement Trending Name ? 02/08/2016 ? LV EDV BP ?105.16 LVIDd (2D) ? 3.99 LV ESV BP ?17.41 NEY (continuity VTI) ? 1.93 NEY (continuity Vmax) ?1.88 LVIDs (2D) ? 2.44 Wall Motion: Segment Name ?Rest ? Base-Anteroseptal ?? Normal ? Base-Anterior ? Normal ? Base-Anterolateral ??Normal ? Base-Posterolateral Normal ? Base-Inferior ? Normal ? Base-Inferoseptal ?? Normal ? Mid-Anteroseptal ?Normal ? Mid-Anterior ?Normal ? Mid-Anterolateral ?? Normal ? Mid-Posterolateral ??Normal ? Mid-Inferior ?Normal ? Mid-Inferoseptal ?Normal ? [place]-Septal ? Normal ? [place]-Anterior ? Normal ? [place]-Lateral ?Normal ? [place]-Inferior ? Normal ? [place]-Tip ?Hypokinetic ? This report has been electronically signed by: Chele Garcia MD ? 02/08/2016 10:38:43 Images reviewed and interpretation verified [facility] Cardiac Ultrasound Laboratory Procedure Note Chele Garcia MD - 02/08/2016 Procedure: Transthoracic Echocardiogram Patient: GRIFFIN JAMES(Age): 1950(65y) Med Rec#: [id number] Sex: F Site Loc: [facility] Ht / Wt: 159(cm)/121(kg) Pt. Loc: [facility] BSA: 2.18 Study Date: 02/08/2016 Pt. Type: Inpatient Tape: Referring: Riley Lara Referring: CYNDY Reading: Chele Garcia ([id number]) Conche Loader And Unloader: Carmen Arriaza Diagnosis: *ICD-10-PCS Chest pain, unspecified (R07.9) CPT Codes: *Echo Full (38055) *Spectral Doppler (81071) *Color Doppler (89387) BP: 122/56 SUMMARY: 1. The left ventricular chamber size is normal. Left ventricular wall thickness is normal. Global left ventricular systolic function appears hyperdynamic. The quantitative left ventricular ejection fraction by biplane Pickard's method is 83%. There is a suggestion in some views of hypokinesis at the apex. 2. There is acceleration of flow accross the LVOT by color dopper. The peak left ventricular outflow tract gradient at rest is 19 mmHg. There is no upper septal hypertrophy and no apparent RADAMES of the mitral valve and therefore this gradient may be due to the hyperdynamic LV function. 3. Right ventricular chamber size, wall thickness, and systolic function are within normal limits. The estimated pulmonary artery systolic pressure is 26 mmHg. 4. There is mild (1+/4+) mitral regurgitation present. Findings : Left Ventricle: The left ventricular chamber size is normal. Left ventricular wall thickness is normal. The peak left ventricular outflow tract gradient at rest is 19 mmHg. Global left ventricular systolic function appears hyperdynamic. The quantitative left ventricular ejection fraction by biplane Pickard's method is 83%. There are left ventricular segmental wall motion abnormalities present, as shown in the diagram below. Doppler assessment is consistent with normal left sided filling pressure. Left Atrium: The left atrium is normal in size. Right Ventricle: Right ventricular chamber size, wall thickness, and systolic function are within normal limits. The estimated pulmonary artery systolic pressure is 26 mmHg. The estimated right atrial pressure is 3 mmHg. Right Atrium: The right atrium is normal in size. Aortic Valve: The aortic valve is probably tricuspid.but is not well visualized. Systolic excursion of the aortic valve is normal. There is no evidence of aortic valve stenosis. There is no evidence of aortic regurgitation. Mitral Valve: The mitral valve leaflets appear normal. There is mild (1+/4+) mitral regurgitation present. Tricuspid Valve: The tricuspid valve leaflets are morphologically normal. There is trace tricuspid regurgitation present. Pulmonic Valve: The pulmonic valve is not well visualized. The pulmonic valve is probably normal. Pericardium: The pericardium appears normal and there is no evidence of a pericardial effusion. Aorta: The aortic root is normal in size. The ascending aorta is normal in size. Pulmonary Artery: The main pulmonary artery appears normal. Venous: The inferior vena cava appears normal in size. There is a greater than 50% respiratory change in the inferior vena cava dimension. Misc: Two-dimensional echo, spectral Doppler and color Doppler performed. Chambers 2D Value Units (Range) IVSd (2D) 1 cm LVPWd (2D) 0.9 cm LVIDd (2D) 4 cm LVIDs (2D) 2.4 cm LVIDd (2D) index 1.8 cm/m2 LVIDs (2D) index 1.1 cm/m2 LV FS (2D) 39 % Ao root diameter (2D2.8 cm (2.1 - 3.6) Ascending Ao 3 cm (2 - 3.5) Volumes/Mass Value Units (Range) LA Area 4 CH 20.4 cm2 (<21) LA ESV BP (A/L) inde31.7 ml/m2 RA AREA 4CH 15.1 cm2 LA ESV SP 4CH (MOD) 55.6 ml LA ESV SP 2CH (MOD) 73.4 ml LV ESV SP 4CH (MOD) 18.4 ml LV ESV SP 2CH (MOD) 16.2 ml LV EDV BP 105.2 ml LV ESV BP 17.4 ml BP EF (MOD) 83 % LV mass (2D) 119.1 g LV mass (2D) index 54.6 g/m2 Diastolic/Systolic Function Value Units (Range) MV E-wave Vmax 1.2 m/sec MV deceleration lytv279.7 msec MV A-wave Vmax 1.4 m/sec MV E:A ratio 0.9 ratio LV septal e' Vmax 0.1 m/sec LV lateral e' Vmax 0.1 m/sec LV average e' Vmax 0.1 m/sec LV average E:e' rati13.3 ratio Aortic Valve Value Units (Range) AV Vmax 2.5 m/sec AV VTI 54.2 cm AV peak gradient 25 mmHg AV mean gradient 13 mmHg LVOT diameter 1.7 cm LVOT Vmax 2.1 m/sec LVOT VTI 45.8 cm LVOT peak gradient 19 mmHg LVOT mean gradient 9.5 mmHg DOI (VTI) 0.9 ratio DOI (Vmax) 0.8 ratio SV LVOT 104.7 ml CO LVOT 8.4 l/min Cardiac index 3.9 l/min/m2 NEY (continuity Vmax1.9 cm2 NEY (continuity Vmax0.9 cm2/m2 NEY (continuity VTI)1.9 cm NEY (continuity VTI)0.9 cm2/m2 Tricuspid Valve Value Units (Range) TR Vmax 2.4 m/sec TR peak gradient 23 mmHg RAP 3 mmHg RVSP 26 mmHg Measurement Trending Name 02/08/2016 LV EDV BP 105.16 LVIDd (2D) 3.99 LV ESV BP 17.41 NEY (continuity VTI) 1.93 NEY (continuity Vmax) 1.88 LVIDs (2D) 2.44 Wall Motion: Segment Name Rest Base-Anteroseptal Normal Base-Anterior Normal Base-Anterolateral Normal Base-Posterolateral Normal Base-Inferior Normal Base-Inferoseptal Normal Mid-Anteroseptal Normal Mid-Anterior Normal Mid-Anterolateral Normal Mid-Posterolateral Normal Mid-Inferior Normal Mid-Inferoseptal Normal [place]-Septal Normal [place]-Anterior Normal [place]-Lateral Normal [place]-Inferior Normal [place]-Tip Hypokinetic This report has been electronically signed by: Chele Garcia MD 02/08/2016 10:38:43 Images reviewed and interpretation verified [facility] Cardiac Ultrasound [facility] Riley Lara MD ECHO ORDERABLES * EKG 12 Lead (02/08/2016 9:58 AM EDT) Ventricular rate 74 BPM MUSE SYSTEM Atrial Rate 75 BPM MUSE SYSTEM P-R Interval 186 ms MUSE SYSTEM QRS Duration 86 ms MUSE SYSTEM Q-T Interval 396 ms MUSE SYSTEM QTC Calculated (Bezet) 439 ms MUSE SYSTEM Calculated P [place] 38 degrees MUSE SYSTEM Calculated R [place] 36 degrees MUSE SYSTEM Calculated T [place] 50 degrees MUSE SYSTEM INTERPRETATION Normal sinus rhythm Nonspecific ST abnormality Abnormal ECG No previous ECGs available Confirmed by MD Yared, Leo ([id number]) on 02/08/2016 3:04:02 PM MUSE SYSTEM 02/08/2016 9:58 AM EDT 02/08/2016 3:04 PM EDT Riley Lara MD ECG ORDERABLES Performing Organization Address City/[facility]/ZIP Co de Phone Number MUSE SYSTEM * TSH (02/08/2016 6:25 AM EDT) Thyroid Stimulating Hormone 1.99 0.27 - 4.20 mcIU/mL [facility] Blood specimen (specimen) Venous Draw / Unknown 02/08/2016 6:25 AM EDT 02/08/2016 7:02 AM EDT Narrative Resulting Agency Comment Spec In Lab Riley Lara MD CHEMISTRY ORDERABLES [facility] [place] [address] * (ABNORMAL) Basic Metabolic Panel (non-fasting) (02/08/2016 6:25 AM EDT) Glucose 95 65 - 199 mg/dL [facility] Comment:Diabetes: >=200 mg/d L plus symptoms Blood Urea Nitrogen 10 8 - 18 mg/dL [facility] Creatinine 0.73 0.70 - 1.20 mg/dL [facility] Comment: Please note that the pediatric reference intervals supplied above were not validated at [facility]. Results from pediatric patients should be interpreted in conjunction to the patient's age, height and muscle mass. Sodium 141 135 - 145 mmol/L [facility] Potassium 4.1 3.5 - 5.0 mmol/L [facility] Comment: Please note: ??Patients with WBC >100,000 may have falsely elevated Potassium levels. ??For accurate Potassium quantification in these patients send serum separator tube (gold top) for subsequent determinations. ??Contact the Clinical Chemistry Laboratory if there are any questions. Chloride 105 98 - 107 mmol/L [facility] Carbon Dioxide 24 22 - 31 mmol/L [facility] Anion Gap 12 5 - 15 mmol/L [facility] Calcium 8.2(L) 8.5 - 10.5 mg/dL [facility] Est Glomerular Filtration Rate >60 >=60 [facility] Comment: This estimated GFR (eGFR) value was calculated using the MDRD equation which has been validated on patients between the ages of 18 and 70. The MDRD should not be used to assess kidney function in patients < 18 years of age or in patients with extremes of body mass, or in patients with acute kidney failure. This value should be multiplied by 1.2 for patients. For further information please copy and paste the following links into your internet browser. [email or web address] Blood specimen (specimen) Venous Draw / Unknown 02/08/2016 6:25 AM EDT 02/08/2016 7:02 AM EDT Narrative Resulting Agency Comment Spec In Lab Riley Lara MD CHEMISTRY ORDERABLES [facility] [place] [address] * Differential, Automated (02/08/2016 6:25 AM EDT) Neutrophil % 56.9 % [facility] Neutrophil Absolute 3.95 1.50 - 6.30 x10(3)/[facility] Lymph % 30.9 % [facility] Lymphocytes Abs 2.2 1.0 - 3.6 x10(3)/[facility] Monocyte % 10.5 % [facility] Monocyte Abs 0.7 0.2 - 1.0 x10(3)/[facility] Eos % 1.3 % [facility] Eosinophils Abs 0.1 0.0 - 0.5 x10(3)/[facility] Basophil % 0.3 % [facility] Baso Absolute 0.0 0.0 - 0.2 x10(3)/[facility] Immature Gran % 0.10 % [facility] Comment: Immature granulocytes(IG's)percentage and absolute count will include metamyelocytes, myelocytes, and promyelocytes. Blood smears from CBCs yielding IG's will be scanned manually for concordance. If this scan disagrees with the automated IG or if promyelocytes are noted, a manual differential will be performed. Immature Gran Absolute 0.01 0.00 - 0.05 x10(3)/[facility] Blood specimen (specimen) 02/08/2016 6:25 AM EDT 02/08/2016 7:02 AM EDT Narrative Resulting Agency Comment Spec In Lab Riley Lara MD HEMATOLOGY ORDERABLE S [facility] [place] [address] * (ABNORMAL) Hemogram (02/08/2016 6:25 AM EDT) White Blood Cell 7.0 4.0 - 10.0 x10(3)/[facility] LABORATORY Red Blood Cell 4.32 3.93 - 5.22 x10(6)/[facility] Hemoglobin 12.0 11.2 - 15.7 gm/dL [facility] Hematocrit 35.6 34.0 - 45.0 % [facility] Mean Cell Volume 82.4 79.0 - 94.0 fL [facility] Mean Cell Hemoglobin 27.8 26.6 - 32.2 pg [facility] Mean Cell Hemoglobin Concentration 33.7 32.0 - 36.5 gm/dL [facility] Platelet 200 145 - 370 x10(3)/mc L [facility] RDW Standard Deviation 48.2(H) 35.0 - 46.0 fL [facility] RDW coefficient of variation 15.8(H) 10.9 - 14.4 % [facility] Mean Platelet Volume 10.1 9.0 - 12.0 fL [facility] Blood specimen (specimen) 02/08/2016 6:25 AM EDT 02/08/2016 7:02 AM EDT Narrative Resulting Agency Comment Spec In Lab Riley Lara MD HEMATOLOGY ORDERABLE S [facility] [place] [address] * (ABNORMAL) Cardiac Enzymes (02/08/2016 6:25 AM EDT) Troponin-T 0.48(H) <=0.03 ng/mL [facility] Comment: 0.03 ng/mL: Represents the 99th percentile upper reference limit for normals. >0.03 ng/mL: Elevated cardiac troponin T level indicative of myocardial damage. Diagnosis of acute, evolving or recent NV requires a typical rise and gradual fall of cTnT with at least ONE of the following: a) Ischemic symptoms b) Development of pathologic Q waves on the ECG c) ECG changes indicative of eschemia (S-T segment elevation/depression) d) Coronary artery intervention Serial bloods should be obtained for testing on admission, at 6 to 9 hrs and again at 12 to 24 hrs if earlier samples are negative and the clinical index of suspicion is high. Reference: [Myocardial infarction redefined? a consensus document of the Joint Society of Cardiology/[place] [employer] Committee for the redefinition of myocardial infarction. ??Journal of the [place] [employer] 2000; 36: 959-969] Creatine Kinase 136 0 - 160 unit/L [facility] Blood specimen (specimen) 02/08/2016 6:25 AM EDT 02/08/2016 7:02 AM EDT Narrative Resulting Agency Comment Spec In Lab Riley Lara MD CHEMISTRY ORDERABLES Performing Organization Address [facility] Co de Phone Number [facility] [place] [address] * (ABNORMAL) Cardiac Enzymes (02/07/2016 11:45 PM EDT) Troponin-T 0.47(H) <=0.03 ng/mL [facility] Comment: 0.03 ng/mL: Represents the 99th percentile upper reference limit for normals. >0.03 ng/mL: Elevated cardiac troponin T level indicative of myocardial damage. Diagnosis of acute, evolving or recent NV requires a typical rise and gradual fall of cTnT with at least ONE of the following: a) Ischemic symptoms b) Development of pathologic Q waves on the ECG c) ECG changes indicative of eschemia (S-T segment elevation/depression) d) Coronary artery intervention Serial bloods should be obtained for testing on admission, at 6 to 9 hrs and again at 12 to 24 hrs if earlier samples are negative and the clinical index of suspicion is high. Reference: [Myocardial infarction redefined? a consensus document of the Joint Society of Cardiology/[place] [employer] Committee for the redefinition of myocardial infarction. ??Journal of the [place] [employer]iology 2000; 36: 959-969] Creatine Kinase 158 0 - 160 unit/L [facility] Blood specimen (specimen) 02/07/2016 11:45 PM EDT 02/07/2016 11:49 PM EDT Narrative Resulting Agency Comment Spec In Lab Riley Lara MD CHEMISTRY ORDERABLES Performing Organization Address [facility]/ZIP Co de Phone Number [facility] [place] [address] * POCT Glucose (02/07/2016 9:37 PM EDT) Glucose, POC 83 65 - 199 mg/dL [facility] Comment: Supplemental ranges: <140 mg/dL before meals <180 mg/dL all other times of the day Blood specimen (specimen) 02/07/2016 9:37 PM EDT 02/07/2016 9:37 PM EDT Riley Lara MD POINT OF CARE TEST O RDERABLES [facility] [place] [address] * THC (Marijuana), Urine Confirmation (02/07/2016 6:33 PM EDT) U THC Conf Test ?Result ??Flag ??Unit ?? RefValue Drug of Abuse, THC Conf, U ??GC/MS Confirmation - THC ?Positive ??THC Carboxylic Acid ? 179 ? ng/mL ??Cutoff:<3 ---ADDITIONAL INFORMATION----- This report is intended for use in clinical monitoring and management of patients. It is not intended for use in employment-relat ed drug testing. Test Performed by: [facility] [address], [place] [address] Molecular Biology Professor: Carolyn Kenny, Ph.D. [facility] Urine specimen (specimen) 02/07/2016 6:33 PM EDT 02/08/2016 8:31 AM EDT Narrative Resulting Agency Comment Spec In Lab Riley Lara MD LAB SEND OUT ORDERAB LES [facility] [place] [address] * (ABNORMAL) Rapid Drug Screen, Urine with Confirm (02/07/2016 6:33 PM EDT) KEON Marijuana Metabolites Screen Presumptive Pos(A) None Detected [facility] Comment: The marijuana metabolites screen detects the THC Metabolite (48-uyf-2-carboxy-? 9 -THC) at concentrations >50 ng/mL. Qualitative Drug screens are reported as ? None Detected? or ? Presumptive Positive? as the results are not routinely confirmed by highly-specific methods. As with any screen occasional false positive results from cross-reacting substances can occur. Not for Medico-Legal Purposes. Phencyclidine Screen, Urine None Detected None Detected [facility] Comment: The phencyclidine screen detects phencyclidine at concentrations >25 ng/mL. Qualitative Drug screens are reported as ? None Detected? or ? Presumptive Positive? as the results are not routinely confirmed by highly-specific methods. As with any screen occasional false positive results from cross-reacting substances can occur. Not for Medico-Legal Purposes. KEON Cocaine Metabolites Screen None Detected None Detected [facility] Comment: The cocaine metabolites screen detects benzoylecgonine (Cocaine Metabolite) at concentrations >150 ng/mL. Qualitative Drug screens are reported as ? None Detected? or ? Presumptive Positive? as the results are not routinely confirmed by highly-specific methods. As with any screen occasional false positive results from cross-reacting substances can occur. Not for Medico-Legal Purposes. Methamphetamines Screen, Urine None Detected None Detected [facility] Comment: The methamphetamine screen detects d-methamphetamine at concentrations >500 ng/mL. Qualitative Drug screens are reported as ? None Detected? or ? Presumptive Positive? as the results are not routinely confirmed by highly-specific methods. As with any screen occasional false positive results from cross-reacting substances can occur. Not for Medico-Legal Purposes. KEON Opiates Screen None Detected None Detected [facility] Comment: The opiates screen detects opiates at a concentration >100 ng/mL and oxymorphone >250 ng/mL. Qualitative Drug screens are reported as ? None Detected? or ? Presumptive Positive? as the results are not routinely confirmed by highly-specific methods. As with any screen occasional false positive results from cross-reacting substances can occur. Not for Medico-Legal Purposes. KEON Amphetamines Screen None Detected None Detected [facility] Comment: The amphetamine screen detects d-amphetamine at concentrations >500 ng/mL. Qualitative Drug screens are reported as ? None Detected? or ? Presumptive Positive? as the results are not routinely confirmed by highly-specific methods. As with any screen occasional false positive results from cross-reacting substances can occur. Not for Medico-Legal Purposes. KEON Benzodiazepines Screen None Detected None Detected [facility] Comment: The benzodiazepines screen detects benzodiazepines at concentrations >150 ng/mL. Not all benzodiazepines cross-react equally with antibody used in this screen. Due to the low dosage of clonazepam, false negatives may be obtained due to low concentration of clonazepam metabolites. Qualitative Drug screens are reported as ? None Detected? or ? Presumptive Positive? as the results are not routinely confirmed by highly-specific methods. As with any screen occasional false positive results from cross-reacting substances can occur. Not for Medico-Legal Purposes. [facility]ON Tricyclics Screen None Detected None Detected [facility] Comment: The tricyclics screen detects tricyclic antidepressants at concentrations >300 ng/mL. Not all tricyclics cross-react equally with the antibody used in this screen. Qualitative Drug screens are reported as ? None Detected? or ? Presumptive Positive? as the results are not routinely confirmed by highly-specific methods. As with any screen occasional false positive results from cross-reacting substances can occur. Not for Medico-Legal Purposes. KEON Methadone Screen None Detected None Detected [facility] Comment: The methadone screen detects methadone at concentrations >200 ng/mL. Qualitative Drug screens are reported as ? None Detected? or ? Presumptive Positive? as the results are not routinely confirmed by highly-specific methods. As with any screen occasional false positive results from cross-reacting substances can occur. Not for Medico-Legal Purposes. KEON Barbiturates Screen None Detected None Detected [facility] Comment: The barbiturates screen detects barbiturate at concentrations >200 ng/mL. Note: Not all barbiturates cross-react equally with antibody used in this screen. Qualitative Drug screens are reported as ? None Detected? or ? Presumptive Positive? as the results are not routinely confirmed by highly-specific methods. As with any screen occasional false positive results from cross-reacting substances can occur. Not for Medico-Legal Purposes. KEON Oxycodone Srceen None Detected None Detected [facility] Comment: The oxycodone screen detects oxycodone at concentrations >100 ng/mL and oxymorphone >250 ng/ml. Qualitative Drug screens are reported as ? None Detected? or ? Presumptive Positive? as the results are not routinely confirmed by highly-specific methods. As with any screen occasional false positive results from cross-reacting substances can occur. Not for Medico-Legal Purposes. Propoxyphene Screen, Urine None Detected None Detected [facility] Comment: The propoxyphene screen detects propoxyphene at concentrations >300 ng/mL. Qualitative Drug screens are reported as ? None Detected? or ? Presumptive Positive? as the results are not routinely confirmed by highly-specific methods. As with any screen occasional false positive results from cross-reacting substances can occur. Not for Medico-Legal Purposes. KEON Buprenorphine Screen None Detected None Detected [facility] Comment: The buprenorphine screen detects buprenorphine at concentrations >10 ng/mL. Qualitative Drug screens are reported as ? None Detected? or ? Presumptive Positive? as the results are not routinely confirmed by highly-specific methods. As with any screen occasional false positive results from cross-reacting substances can occur. Not for Medico-Legal Purposes. KEON Adulterants Screen None Detected None Detected [facility] Comment: No adulteration or dilution of this urine sample was detected. All urine samples submitted for urine drugs of abuse analysis are tested for Creatinine and pH and for the presence of oxidants, nitrites, chromate and aldehydes (glutaraldehyde). Urine specimen (specimen) 02/07/2016 6:33 PM EDT 02/07/2016 6:48 PM EDT Narrative Resulting Agency Comment Spec In Lab Riley Lara MD URINE [place] [address] * Blue Tube HOLD (02/07/2016 6:10 PM EDT) Pathologist [facility] Blue Hold Sample in lab. [facility] Blood specimen (specimen) Venous Draw / Unknown 02/07/2016 6:10 PM EDT 02/07/2016 6:18 PM EDT Riley Lara MD [place] [address] * Differential, Automated (02/07/2016 6:10 PM EDT) [facility] Neutrophil % 66.5 % [facility] Neutrophil Absolute 4.77 1.50 - 6.30 x10(3)/[facility] Lymph % 23.8 % [facility] Lymphocytes Abs 1.7 1.0 - 3.6 x10(3)/[facility] Monocyte % 8.5 % [facility] Monocyte Abs 0.6 0.2 - 1.0 x10(3)/[facility] Eos % 1.0 % [facility] Eosinophils Abs 0.1 0.0 - 0.5 x10(3)/[facility] Basophil % 0.1 % [facility] Baso Absolute 0.0 0.0 - 0.2 x10(3)/[facility] Immature Gran % 0.10 % [facility] Comment: Immature granulocytes(IG's)percentage and absolute count will include metamyelocytes, myelocytes, and promyelocytes. Blood smears from CBCs yielding IG's will be scanned manually for concordance. If this scan disagrees with the automated IG or if promyelocytes are noted, a manual differential will be performed. Immature Gran Absolute 0.01 0.00 - 0.05 x10(3)/[facility] Blood specimen (specimen) 02/07/2016 6:10 PM EDT 02/07/2016 6:17 PM EDT Narrative Resulting Agency Comment Spec In Lab Riley Lara MD HEMATOLOGY ORDERABLE S [facility] [place] [address] * (ABNORMAL) Hemogram (02/07/2016 6:10 PM EDT) White Blood Cell 7.2 4.0 - 10.0 x10(3)/mc L [facility] Red Blood Cell 4.69 3.93 - 5.22 x10(6)/mc L [facility] Hemoglobin 13.2 11.2 - 15.7 gm/dL [facility] Hematocrit 38.2 34.0 - 45.0 % [facility] Mean Cell Volume 81.4 79.0 - 94.0 fL [facility] Mean Cell Hemoglobin 28.1 26.6 - 32.2 pg [facility] Mean Cell Hemoglobin Concentration 34.6 32.0 - 36.5 gm/dL [facility] Platelet 203 145 - 370 x10(3)/mc L [facility] RDW Standard Deviation 47.1(H) 35.0 - 46.0 fL [facility] RDW coefficient of variation 15.9(H) 10.9 - 14.4 % [facility] Mean Platelet Volume 9.5 9.0 - 12.0 fL [facility] Blood specimen (specimen) 02/07/2016 6:10 PM EDT 02/07/2016 6:17 PM EDT Narrative Resulting Agency Comment Spec In Lab Riley Lara MD HEMATOLOGY ORDERABLE S Performing Organization Address City/[facility]/ZIP Co de Phone Number [facility] [place] [address] * Magnesium (02/07/2016 6:10 PM EDT) Magnesium 0.71 0.69 - 1.07 mmol/L [facility] Blood specimen (specimen) 02/07/2016 6:10 PM EDT 02/07/2016 6:17 PM EDT Narrative Resulting Agency Comment Spec In Lab Riley Lara MD CHEMISTRY ORDERABLES [facility] [place] [address] * (ABNORMAL) Comprehensive metabolic panel (non-fasting) (02/07/2016 6:10 PM EDT) Pathologist [facility] Glucose 89 65 - 199 mg/dL [facility] Comment:Diabetes: >=200 mg/d L plus symptoms Blood Urea Nitrogen 10 8 - 18 mg/dL [facility] Creatinine 0.79 0.70 - 1.20 mg/dL [facility] Comment: Please note that the pediatric reference intervals supplied above were not validated at [facility]. Results from pediatric patients should be interpreted in conjunction to the patient's age, height and muscle mass. Sodium 141 135 - 145 mmol/L [facility] Potassium 4.0 3.5 - 5.0 mmol/L [facility] Comment: Please note: ??Patients with WBC >100,000 may have falsely elevated Potassium levels. ??For accurate Potassium quantification in these patients send serum separator tube (gold top) for subsequent determinations. ??Contact the Clinical Chemistry Laboratory if there are any questions. Chloride 103 98 - 107 mmol/L [facility] Carbon Dioxide 24 22 - 31 mmol/L [facility] Anion Gap 14 5 - 15 mmol/L [facility] Calcium 8.7 8.5 - 10.5 mg/dL [facility] Protein, Total 6.6 6.1 - 8.0 gm/dL [facility] Albumin 3.4 3.2 - 5.2 gm/dL [facility] Aspartate Aminotransferase 45(H) 0 - 30 unit/L [facility] Alanine Aminotransferase 16 0 - 30 unit/L [facility] Alkaline Phosphatase 74 40 - 104 unit/L [facility] Bilirubin, Total 1.0 0.2 - 1.3 mg/dL [facility] Bilirubin, Direct 0.3 0.0 - 0.3 mg/dL [facility] Est Glomerular Filtration Rate >60 >=60 [facility] Comment: This estimated GFR (eGFR) value was calculated using the MDRD equation which has been validated on patients between the ages of 18 and 70. The MDRD should not be used to assess kidney function in patients < 18 years of age or in patients with extremes of body mass, or in patients with acute kidney failure. This value should be multiplied by 1.2 for patients. For further information please copy and paste the following links into your internet browser. [email or web address] [email or web address] Blood specimen (specimen) 02/07/2016 6:10 PM EDT 02/07/2016 6:17 PM EDT Narrative Resulting Agency Comment Spec In Lab Riley Lara MD CHEMISTRY ORDERABLES Performing Organization Address City/State/[facility] Co de Phone Number [facility] [place] [address] * (ABNORMAL) Cardiac Enzymes (02/07/2016 6:10 PM EDT) Troponin-T 0.50(H) <=0.03 ng/mL [facility] Comment: 0.03 ng/mL: Represents the 99th percentile upper reference limit for normals. >0.03 ng/mL: Elevated cardiac troponin T level indicative of myocardial damage. Diagnosis of acute, evolving or recent NV requires a typical rise and gradual fall of cTnT with at least ONE of the following: a) Ischemic symptoms b) Development of pathologic Q waves on the ECG c) ECG changes indicative of eschemia (S-T segment elevation/depression) d) Coronary artery intervention Serial bloods should be obtained for testing on admission, at 6 to 9 hrs and again at 12 to 24 hrs if earlier samples are negative and the clinical index of suspicion is high. Reference: [Myocardial infarction redefined? a consensus document of the Joint Society of Cardiology/[place] College [employer] Committee for the redefinition of myocardial infarction. ??Journal of the [place] College [employer] 2000; 36: 959-969] Creatine Kinase 178(H) 0 - 160 unit/L [facility] Blood specimen (specimen) 02/07/2016 6:10 PM EDT 02/07/2016 6:17 PM EDT Narrative Resulting Agency Comment Spec In Lab Riley Lara MD CHEMISTRY ORDERABLES [facility] [place] [address] * Film Library- Storage only DX Chest (02/07/2016 12:00 AM EDT) Narrative User, Generic Transmittal - 02/07/2016 6:45 PM EDT This exam is for storage only and is auto-finalizing. 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 Maximum daily dose of acetaminophen from all sources not to exceed 4,000 mg., Routine Given 02/08/2016 8:18 AM EDT 650 mg aspirin chewable tablet 81 mg 81 mg, Oral, DAILY, First dose on Sat02/08/16 at 0945, Until Discontinued, Routine Given 02/08/2016 10:11 AM EDT 81 mg heparin (porcine) subcutaneous injection 5,000 Units 5,000 Units, Subcutaneous, EVERY 8 HOURS SCHEDULED, First dose on Sat02/08/16 at 1400, Until Discontinued, Routine pantoprazole (PROTONIX) tablet 40 mg 40 mg, Oral, DAILY, First dose on Sat02/08/16 at 1200, Until Discontinued, DO NOT CRUSH OR OPEN Given 02/08/2016 11:52 AM EDT 40 mg senna-docusate (PERICOLACE) 8.6-50 mg per tablet 2 tablet 2 tablet, Oral, 2 TIMES DAILY, First dose on Sat02/07/16 at 2100, Until Discontinued, Routine Given 02/08/2016 8:18 AM EDT 2 tablets Given 02/07/2016 10:01 PM EDT 2 tablets sodium chloride 0.9 % flush 5 mL 5 mL, Intravenous, 2 TIMES DAILY, First dose on Sat02/07/16 at 2100, Until Discontinued, Routine Given 02/08/2016 8:20 AM EDT 5 mLs Given 02/07/2016 10:03 PM EDT 5 mLs documented in this encounter Active and Recently Administered Medications Times are shown in EDT. Scheduled Medication Order 02/06/2016 02/07/2016 02/08/2016 aspirin chewable tablet 81 mg 81 mg, Oral, DAILY, First dose on Sat02/08/16 at 0945, Until Discontinued, Routine 1011 (Given - Provid er: Pablo Ramirez RN) heparin (porcine) subcutaneous injection 5,000 Units 5,000 Units, Subcutaneous, EVERY 8 HOURS SCHEDULED, First dose on Sat02/08/16 at 1400, Until Discontinued, Routine 1400 (Due) pantoprazole (PROTONIX) tablet 40 mg 40 mg, Oral, DAILY, First dose on Sat02/08/16 at 1200, Until Discontinued, DO NOT CRUSH OR OPEN 1152 (Given - Provid er: Pablo Ramirez RN) pantoprazole (PROTONIX) tablet 40 mg (COMPLETED) 40 mg, Oral, ONCE, On Sat02/07/16 at 2200, 1 dose, DO NOT CRUSH OR OPEN 220 (Given - Provider: Toshia Ruiz RN) senna-docusate (PERICOLACE) 8.6-50 mg per tablet 2 tablet 2 tablet, Oral, 2 TIMES DAILY, First dose on Sat02/07/16 at 2100, Until Discontinued, Routine 220 (Given - Provider: Toshia Ruiz RN) 0818 (Given - Provider: Pablo Ramirez RN) sodium chloride 0.9 % flush 5 mL 5 mL, Intravenous, 2 TIMES DAILY, First dose on Sat02/07/16 at 2100, Until Discontinued, Routine 2203 (Given - Provider: Toshia Ruiz RN) 0820 (Given - Provider: Pablo Ramirez RN) sodium chloride 0.9% 500 mL IV bolus (COMPLETED) Intravenous, ONCE, 1 dose, On Sat02/07/16 at 2215 2201 (Given - Provider: Toshia Ruiz RN) Continuous Medication Order 02/06/2016 02/07/2016 02/08/2016 sodium chloride 0.9% infusion (CANCELED) 100 mL/hr, Intravenous, CONTINUOUS, Starting on Sat02/07/16 at 1645, Until Sat02/08/16 at 0929, Recovery (Recovery-Hospital Unit) 1635 (New Bag - Provider: Tanya Ruth RN) sodium chloride 0.9% infusion (CANCELED) 100 mL/hr, Intravenous, CONTINUOUS, Starting on Sat02/07/16 at 1815, Until Sat02/08/16 at 0929, After her NS drip that was started in optical lab technician. 2232 (New Bag - Provider: Toshia Ruiz RN) 0300 (Rate/Dose Verify - Provider: Toshia Ruiz RN)0823 (New Bag - Provider: Pablo Ramirez RN)0936 (Stopped - Provider: Pablo Ramirez RN) PRN Medication Order 02/06/2016 02/07/2016 02/08/2016 acetaminophen (TYLENOL) tablet 650 mg 650 mg, Oral, EVERY 6 HOURS PRN, Starting on Sat02/07/16 at 1758, Until Sat02/08/16 at 1730, Pain, Fever, Administer for temperature greater than or equal to 38.2 degrees celsius. Maximum daily dose of acetaminophen from all sources not to exceed 4,000 mg., Routine 0818 (Given - Provid er: Pablo Ramirez RN) albuterol (PROVENTIL HFA;VENTOLIN HFA;PROAIR) 90 mcg/actuation inhaler 2 puff 2 puff, Inhalation, EVERY 4 HOURS PRN, Starting on Sat02/07/16 at 1758, Until Sat02/08/16 at 1730, Wheezing, Routine lidocaine (XYLOCAINE) 10 mg/mL (1 %) injection 3 mg 3 mg (0.3 mL), Subcutaneous, ONCE PRN, 1 dose, Starting on Sat02/07/16 at 1758, Until Sat02/08/16 at 1730, for discomfort with PIV insertion, Routine sodium chloride 0.9 % flush 5-20 mL 5-20 mL, Intravenous, EVERY 1 MIN PRN, Starting on Sat02/07/16 at 1758, Until Sat02/08/16 at 1730, flush, Flush pertains to all indwelling lines. Flush per protocol found in the job aid using the link provided on this medication record., Routine documented in this encounter Care Teams Opener Tender Relationship Specialty Start Date End Date Kathleen Ratliff, RIGOBERTO [address] [place] [address] PCP - General Family Medicine 02/07/16 05/01/17 documented as of this encounter
--- OUTSIDE RECORDS SUMMARY | 2024-07-07 13:40 | XMS_ITS | Encounter Summary ---
Author Organization [facility] [place] [address] Care Team Providers Care International Trade Analyst Name Role Phone Amber Ratliff RIGOBERTO Primary Care Provider Encounter Details Date Type Department Care Team (Late st Contact Info) Description 04/03/2016 Interpretation Only Cardiology at [address] [phone] Jaswant Teresa Jr., MD [address] [place] [address] Palpitations Social History Tobacco Use Types Packs/Day Years [...] 07/22/2024 9:00 AM EST [place] [address] Ana Ho MD [facility] [place] [address] 07/22/2024 10:00 AM EST Laboratory Appointment Lab [address] [place] [address] 07/22/2024 11:00 AM EST Office [place] [address] Ana Ho MD [facility] [place] [address] 09/15/2024 10:00 AM EST TH Visit (TeleHealth) [place] [address] Candy Clifford MD [facility] [place] [address] Scheduled Procedures Name Priority Associated Diagnoses Date/Ti me EGD, UPPER GI ENDOSCOPY (WRV U 2.09) Hepatic cirrhosis, unspecified hepatic cirrhosis type, unspecified whether ascites present documented as of this encounter Visit Diagnoses Diagnosis Palpitations documented in this encounter Care Teams International Trade Analyst Relationship Specialty Start Date End Date Amber Ratliff, BUSINESS ADMINISTRATION PROFESSOR [address] [place] [address] PCP - General Family Medicine 02/07/16 05/01/17 documented as of this encounter
--- OUTSIDE RECORDS SUMMARY | 2024-07-07 13:40 | XMS_ITS | Encounter Summary ---
Author Organization [facility] [place] [address] Care Team Providers Care Lead Clinical Research Coordinator Name Role Phone Justino Lucia MD Primary Care Provider [phone] Reason for Visit * Reason Comments Medication Refill Encounter Details Date Type Department Care Team (Late st Contact Info) Description 06/05/2016 Refill [place] [phone] Espinoza Chaidez MD [facility] [place] [address] Social History Tobacco Use Types Packs/Day Years [...] 07/22/2024 9:00 AM EST Appointment [place] [phone] Ana Ho MD [facility] GASTROENTER[place] [address] 07/22/2024 10:00 AM EST Laboratory Appointment Lab [address] [place] [address] 07/22/2024 11:00 AM EST Office [place] [address] Ana Ho MD [facility] GASTROENTER[facility] [address] 09/15/2024 10:00 AM EST TH Visit (TeleHealth) [place] [address] Candy Clifford MD [facility] [place] [address] Scheduled Procedures Name Priority Associated Diagnoses Date/Ti [...] yoga, t'ai chi and qigong. Health Personal Property Appraiser will send hand-outs. Use resistance bands. Health Personal Property Appraiser will request a set be mailed. Nutrition Lifestyle No Candy Clifford MD Note: Nutrition Goals updated today: 12/11/22 TF 1. Focus on reaching adequate protein intake - aim for 60-80 grams (handout attached in after visit summary) 2. Consider the 3 eating events per day to be an opportunity to start with protein (cottage cheese, costa rican yogurt, protein smoothies, chicken or chicken salad [...] can't go back to sleep. Health Personal Property Appraiser will send some to try. Tried apps but don't really like them as I like the quiet when going to sleep. [facility] 04/23 documented as of this encounter Visit Diagnoses Not on filedocumented in this encounter Care Teams Lead Clinical Research Coordinator Relationship Specialty Start Date End Date Justino Lucia MD PCP - General Family Medicine 10/04/21 documented as of this encounter
--- OUTSIDE RECORDS SUMMARY | 2024-07-07 13:40 | XMS_ITS | Encounter Summary ---
Author Organization [facility] [place] [address] Care Team Providers Care Eye Care Professional Name Role Phone Amber Ratliff RIGOBERTO Primary Care Provider Reason for Visit * Reason Onset Date Comments Results 02/21/2016 [facility] on Pt Encounter Details Date Type Department Care Team (Late st Contact Info) Description 02/21/2016 Telephone Cardiology at [address] [address] Jaswant Teresa Jr., MD [address] [place], [place] [phone] Results ([facility] on Pt) Social History Tobacco Use Types Packs/Day Years [...] encounter Miscellaneous Notes * Telephone Encounter - Jaswant Teresa Jr., MD - 04/04/2016 8:26 AM EDT Loop recorder- APC, VPC, brief 4-6 beat SVT documented in this encounter Plan of Treatment Upcoming Encounters Date Type Department Care Team (Late st Contact Info) Description 07/22/2024 9:00 AM EST [place] [phone] Ana Ho MD [facility] [place] [address] 07/22/2024 10:00 AM EST Laboratory Appointment Lab [address] [place] [phone] 07/22/2024 11:00 AM EST Office [place] [address] Ana Ho MD [facility] [place] [address] 09/15/2024 10:00 AM EST TH Visit (TeleHealth) [place] [phone] Candy Clifford MD [facility] [address] Scheduled Procedures Name Priority Associated Diagnoses Date/Ti me EGD, UPPER GI ENDOSCOPY (WRV U 2.09) Hepatic cirrhosis, unspecified hepatic cirrhosis type, unspecified whether ascites present documented as of this encounter Visit Diagnoses Not on filedocumented in this encounter Care Teams Eye Care Professional Relationship Specialty Start Date End Date Amber Ratliff, TEMPORARY STAFF ACCOUNTANT [address] [place] [address] PCP - General Family Medicine 02/07/16 05/01/17 documented as of this encounter
--- OUTSIDE RECORDS SUMMARY | 2024-07-07 13:40 | XMS_ITS | Encounter Summary ---
Author Organization [facility] [place] [address] Care Team Providers Care Sports Team Manager Name Role Phone Amber Ratliff RIGOBERTO Primary Care Provider Reason for Visit * Auth/Cert Specialty Diagnoses / Procedures Referred By Marcelo tucker Referred To Contact Procedures AIRO Referral ID Status Reason Start Date Expiration Date Visits Re quested Visits Authorized [id number] 1 1 Encounter Details Date Type Department Care Team (Latest Contact Info) Description 02/07/2016 2:59 PM EDT - 02/07/2016 3:28 PM EDT Hospital En[place] [phone] Riley Lara MD [facility] [place] [address] ST elevation myocardial infarction (STEMI) of anterior wall Discharge Disposition: Home Social History Tobacco Use [...] by mouth daily. 30 tablet 3 02/09/2016 aspirin 81 mg Tablet, Chewable Take 81 mg by mouth daily. 30 tablet 3 02/09/2016 06/06/2017 documented as of this encounter Plan of Treatment Upcoming Encounters Date Type Department Care Team (Late st Contact Info) Description 07/22/2024 9:00 AM EST [place] [phone] Ana Ho MD [facility] [place] [address] 07/22/2024 10:00 AM EST Laboratory Appointment Lab [address] [place] [address] 07/22/2024 11:00 AM EST Office [place] [phone] Ana Ho MD [facility] [place] [address] 09/15/2024 10:00 AM EST TH Visit (TeleHealth) [place] [address] Candy Clifford MD [facility] DR [facility] [address] Scheduled Procedures Name Priority Associated Diagnoses Date/Ti me EGD, UPPER GI ENDOSCOPY (WRV U 2.09) Hepatic cirrhosis, unspecified hepatic cirrhosis type, unspecified whether ascites present documented as of this encounter Visit Diagnoses Diagnosis ST elevation myocardial infarction (STEMI) of anterior wall Acute myocardial infarction of other anterior wall, episode of care unspecified documented in this encounter Care Teams Sports Team Manager Relationship Specialty Start Date End Date Amber Ratliff APRN [address] [place] [address] PCP - General Family Medicine 02/07/16 05/01/17 documented as of this encounter
--- OUTSIDE RECORDS SUMMARY | 2024-07-07 13:40 | XMS_ITS | Encounter Summary ---
Author Organization [facility] [place] [address] Care Team Providers Care Shot Grinder Operator Name Role Phone Amber Ratliff RIGOBERTO Primary Care Provider [phone] Encounter Details Date Type Department Care Team (Latest Contact Info) Description 02/07/2016 - 02/07/2016 2:58 PM EDT Hospital Encounter Radiology Library [place] [phone] Discharge Disposition: Home Social History Tobacco Use [...] 07/22/2024 9:00 AM EST Appointment Ultrasound at [facility] [place] [phone] Ana Ho MD [facility] [place] [address] 07/22/2024 10:00 AM EST Laboratory Appointment Lab [address] [place] [address] 07/22/2024 11:00 AM EST Office [place] [address] Ana Ho MD [facility] [place] [address] 09/15/2024 10:00 AM EST TH Visit (TeleHealth) [place] [address] Candy Clifford MD [facility] DR [facility] [address] Scheduled Procedures Name Priority Associated Diagnoses Date/Ti me EGD, UPPER GI ENDOSCOPY (WRV U 2.09) Hepatic cirrhosis, unspecified hepatic cirrhosis type, unspecified whether ascites present documented as of this encounter Procedures Procedure Name Priority Date/Time Associated Diagnosis Comments FILM LIBRARY STORAGE ONLY DX CHEST Routine 02/07/2016 12:00 AM EDT Pain documented in this encounter Results * Film Library- Storage only DX Chest (02/07/2016 12:00 AM EDT) Narrative User, Generic Transmittal - 02/07/2016 6:45 PM EDT This exam is for storage only and is auto-finalizing. Riley Lara MD IMG FILM LIBRARY ORD ERABLES documented in this encounter Visit Diagnoses Not on filedocumented in this encounter Care Teams Shot Grinder Operator Relationship Specialty Start Date End Date Amber Ratliff, CONSULTATIVE SALES ASSOCIATE [address] [place] [address] PCP - General Family Medicine 02/07/16 05/01/17 documented as of this encounter
--- OUTSIDE RECORDS SUMMARY | 2024-07-07 13:40 | XMS_ITS | Encounter Summary ---
Author Organization Formerly [facility] [place] [address] Care Team Providers Care Pointer Machine Operator Name Role Phone Kathleen Ratliff RIGOBERTO Primary Care Provider Reason for Visit * Auth/Cert Specialty Diagnoses / Procedures Referred By Marcelo tucker Referred To Contact Diagnoses Atypical angina NSTEMI/ ST ELevation Referral ID Status Reason Start Date Expiration Date Visits Re quested Visits Authorized [id number] 1 1 Encounter Details Date Type Department Care Team (Latest Contact Info) Description 02/07/2016 3:29 PM EDT - 02/08/2016 3:30 PM EDT Hospital Encounter [place] [id number] Riley Lara MD [facility] [place] [address] ST elevation myocardial infarction (STEMI), unspecified artery; Chest pain, unspecified type; Pain Discharge Disposition: Home Social History Tobacco [...] for initial ST elevation and trop elevation. lab rep did not find sign of acute ischemia. [...] available in the chart here intransfer from [facility] via [employer] air. Patient initially presented to her PCP [...] 3.9 (UNL 0.06). CXR was clear at [facility] ED. Initial EKG was notable for ST [...] #Chest pain 65 yo woman transferred from [facility] as a STEMI. She had chest discomfort on Saturday and went to her PCP this AM. EKG revealed ST elevation in the inferior and anterolateral leads and she was sent to the ER. EKGs transmitted to [facility] and due to recurrent chest pain she was brought to the outside laborer at [facility]. ?? During helicopter transfer she had chest [...] appointments: During 8am-5pm Saturday through Saturday call [phone] to speak with a nurse in the cardiology clinic All other times call [phone] and ask to speak to the senior business process analyst stationary engineer. Diet: - Heart healthy: low salt, low [...] APRN (your PCP) Your Inpatient Doctor(s) at [facility]: Riley Lara MD - Attending physician Espinoza Chaidez MD - Resident physician Madeline Price - Supervisor Varnish physician Your Primary Care Provider: KATHLEEN RATLIFF APRN [address] [facility] [id number] For questions regarding issues relating to your hospitalization on the Hospital Medicine Service, please contact your inpatient physician through the [facility] Natural Gas Field Processing Supervisor [phone]. Issues after hours and on weekends will be handled by the Hospitalist staff on-call. For questions regarding this document or issues relating to this hospitalization on the Medical Service, please contact your inpatient physician through the [facility] Natural Gas Field Processing Supervisor . Issues afterhours and on weekends will be handled by the Tow Motor Operator staff on-call. Signed: Madeline Price Internal Medicine, PGY1 Cardiology Team [id number] 02/08/2016 documented in this encounter Discharge Instructions [...] appointments: During 8am-5pm Saturday through Saturday call [phone] to speak with a nurse in the cardiology clinic All other times call [phone] and ask to speak to the senior business process analyst stationary engineer. Diet: - Heart healthy: low salt, low [...] APRN (your PCP) Your Inpatient Doctor(s) at [facility]: Riley Lara MD - Attending physician Espinoza Chaidez MD - Resident physician Madeline Price - Supervisor Varnish physician Your Primary Care Provider: KATHLEEN RATLIFF APRN [address] [facility] [id number] For questions regarding issues relating to your hospitalization on the Hospital Medicine Service, please contact your inpatient physician through the [facility] Natural Gas Field Processing Supervisor [phone]. Issues after hours and on weekends will [...] Interval History: 65 yo woman transferred from [facility] as a STEMI. She had chest discomfort on Saturday and went to her PCP this AM. EKG revealed ST elevation in the inferior and anterolateral leads and she was sent to the ER. EKGs transmitted to [facility] and due to recurrent chest pain she was brought to the outside laborer at [facility]. ?? During helicopter transfer she had chest [...] available in the chart here intransfer from [facility] via [facility] air. Patient initial presented to her PCP [...] Price MD PGY-1, Internal Medicine Team Pager [phone] 02/07/2016 documented in this encounter H&P Notes [...] Interval History: 65 yo woman transferred from [facility] as a STEMI. She had chest discomfort on Saturday and went to her PCP this AM. EKG revealed ST elevation in the inferior and anterolateral leads and she was sent to the ER. EKGs transmitted to [facility] and due to recurrent chest pain she was brought to the outside laborer at [facility]. During helicopter transfer she had chest discomfort [...] available in the chart here [facility]fer [facility] Patient initially presented to her PCP [...] 3.9 (UNL 0.06). CXR was clear at [facility] ED. Initial EKG was notable for ST [...] [address] Using of [employer]! ROS (positives in bold): ROS Constitutional: No [...] available in the chart here intransfer from [facility] via [facility] air. Patient initial presented to her PCP [...] Price MD PGY-1, Internal Medicine Team Pager [phone] 02/07/2016 STAFF ADDENDUM: I have reviewed the available records, interviewed and examined the patient. I have discussed the patient's medical history, differential diagnosis, and plan of therapy with Dr Price and have reviewed their note dated 02/08/2016 and I agree with their note and plan of therapy. documented in this encounter Miscellaneous Notes * Plan of Care - Pablo Ramirez RN - 02/08/2016 8:48 AM EDT Problem: [...] -- Safety Interventions Safety Precautions/Fall Reduction supervised activity;safety relief valve technician;room near unit station;nonskid shoes/slippers when out of bed;muscle strengthening facilitated;low bed;fall reduction program maintained;environmental modification -- Goal: Infection Control 02/08/16817 Coping/Psychosocial Response Interventions Counseling calming techniques promoted;emotional support provided;goal setting facilitated;verbalization of feelings encouraged;understanding of situation facilitated;relaxation techniques promoted Safety Interventions Isolation Precautions standard precautions maintained Infection Prevention bronchial hygiene promoted;environmental surveillance;hydration promoted;nutrition promoted;promote handwashing;rest/sleep promoted Goal: Discharge Needs Assessment 02/07/16 1900 02/07/16 22002/08/1647 Discharge Needs Assessment Concerns to be Addressed [...] Handling Outcome: Ongoing (Interventions Implemented as Appropriate) 02/07/16220002/08/161902/08/1654 Musculoskeletal Interventions Activity/Level of Assistance up in [...] fluids promoted;preprocedure hydration performed Intervention: Fluid Management 02/08/1654 Nutrition Interventions Fluid Management fluids adjusted;fluids promoted;intravenous fluids adjusted;oral rehydration solution/therapy promoted Goal: Signs and symptoms of listed potential problems will be absent or manageable (reference (Cardiac Catheterization with/without PCI (Adult)) CPG) Outcome: Ongoing (Interventions Implemented as Appropriate) 02/08/1654 Cardiac Catheterization with/without PCI Problems Assessed (Cardiac [...] EVALUATION NOTE: OUTCOME SUMMARY: Patient arrived from [facility] lab just before 1800. She has [...] 07/22/2024 9:00 AM EST [place]ment [place] [phone] Ana Ho MD [facility] [place] [address] 07/22/2024 10:00 AM EST Laboratory Appointment Lab [address] [place] [phone] 07/22/2024 11:00 AM EST Office [place] [phone] Ana Ho MD [facility] [place] [address] 09/15/2024 10:00 AM EST TH Visit (TeleHealth) Weight and Wellness at [facility] [place] [address] Candy Clifford MD [facility] DR [address] [place] [address] Scheduled Procedures Name Priority Associated Diagnoses Date/Ti me EGD, UPPER GI ENDOSCOPY (WRV U 2.09) Hepatic cirrhosis, unspecified hepatic cirrhosis type, unspecified whether ascites present documented as of this encounter Procedures Procedure Name Priority Date/Time Associated Diagnosis Comments BELT LOOP CUTTER SCAN 02/09/2016 12:00 AM EDT CARDIAC CATH SCAN 02/09/2016 12: 00 AM EDT ECHO COMPLETE Routine 02/08/2016 10:11 AM EDT Chest pain, unspecified type EKG 12-LEAD Routine 02/08/2016 9:[address] elevation myocardial infarction (STEMI), unspecified artery HEMOGRAM Routine 02/08/2016 6:25 AM EDT DIFFERENTIAL, AUTOMATED Routine 02/08/2016 6:25 AM EDT CARDIAC ENZYMES ([facility]) STAT 02/08/2016 6:25 AM EDT CBC (WITH DIFF) Routine 02/08/2016 6:25 AM EDT TSH STAT 02/08/2016 6:25 AM EDT BASIC METABOLIC PANEL STAT 02/08/2016 6:25 AM EDT CARDIAC ENZYMES ([facility]) STAT 02/07/2016 11:45 PM EDT POCT GLUCOSE Routine 02/07/2016 9:37 PM EDT RAPID DRUG SCREEN W/ CONFIRMATION, URINE Routine 02/07/2016 6:33 PM EDT THC (MARIJUANA), URINE, CONFIRMATION Routine 02/07/2016 6:33 PM EDT HEMOGRAM Routine 02/07/2016 6:10 PM EDT DIFFERENTIAL, AUTOMATED Routine 02/07/2016 6:10 PM EDT BLUE TUBE HOLD Routine 02/07/2016 6:10 PM EDT CARDIAC ENZYMES ([facility]) STAT 02/07/2016 6:10 PM EDT CBC (WITH DIFF) Routine 02/07/2016 6:10 PM EDT MAGNESIUM Routine 02/07/2016 6:10 PM EDT COMPREHENSIVE METABOLIC PANEL Routine 02/07/2016 6:10 PM EDT FILM LIBRARY STORAGE ONLY DX CHEST Routine 02/07/2016 12:00 AM EDT Pain documented in this encounter Results * SCAN DOC: BELT LOOP CUTTER (02/09/2016 12:00 AM EDT) Anatomical Region Laterality Modality Other Scanning Provider MEDIA MGR SCAN EXT O RDR/RSLT * SCAN DOC: CARDIAC CATH (02/09/2016 12:00 AM EDT) Anatomical Region Laterality Modality Cardiac Other Scanning Provider MEDIA MGR SCAN EXT O RDR/RSLT * ECHO COMPLETE (02/08/2016 10:11 AM EDT) EF 83 HEARTLAB SYSTEM Anatomical Region Laterality Modality Other 02/08/2016 Narrative 02/08/2016 10:39 AM EDT Procedure: ?Transthoracic Echocardiogram Patient: ?ROBER SHERRON ? (Age): 1950(65y) Med Rec#: ? [id number] ?Sex: ?F ? Site Loc: ? [facility] ?Ht / Wt: ??159(cm)/121(kg) Pt. Loc: ?CCU ? BSA: ?2.18 Study Date: ?? 02/08/2016 ?Pt. Type: Inpatient Tape: ? Referring: Riley Lara Referring: CYNDY Reading: Chele Garcia ([id number]) Rn Pediatric: Carmen Arriaza Diagnosis: *ICD-10-PCS Chest pain, unspecified (R07.9) CPT Codes: *Echo Full (51914) *Spectral Doppler (23899) *Color Doppler (52412) BP: ? 122/56 SUMMARY: 1. The left [...] E-wave Vmax ?1.2 ?m/sec ? MV deceleration bran035.7 ?msec ? MV A-wave Vmax ?1.4 ?m/sec [...] ? Mid-Inferior ?Normal ? Mid-Inferoseptal ?Normal ? [place]-Septal ? Normal ? [place]-Anterior ? Normal ? [place]-Lateral ?Normal ? [place]-Inferior ? Normal ? [place]-Tip ?Hypokinetic ? This report has been electronically signed by: Chele D Radha MD ? 02/08/2016 10:38:43 Images reviewed and interpretation verified [facility] Cardiac Ultrasound Laboratory Procedure Note Chele Garcia MD - 02/08/2016 Procedure: Transthoracic Echocardiogram Patient: ROBER JAMES(Age): 1950(65y) Med Rec#: [id number] Sex: F Site Loc: [facility] Ht / Wt: 159(cm)/121(kg) Pt. Loc: CCU BSA: 2.18 Study Date: 02/08/2016 Pt. Type: Inpatient Tape: Referring: Riley Lara Referring: CYNDY Reading: Chele Garcia ([id number]) Rn Pediatric: Carmen Arriaza Diagnosis: *ICD-10-PCS Chest pain, unspecified (R07.9) CPT Codes: *Echo Full (29196) *Spectral Doppler (15510) *Color Doppler (51852) BP: 122/56 SUMMARY: 1. The left ventricular [...] MV E-wave Vmax 1.2 m/sec MV deceleration xlsp925.7 msec MV A-wave Vmax 1.4 m/sec MV [...] Normal Mid-Posterolateral Normal Mid-Inferior Normal Mid-Inferoseptal Normal [place]-Septal Normal [place]-Anterior Normal [place]-Lateral Normal [place]-Inferior Normal [place]-Tip Hypokinetic This report has been electronically signed by: Chele Garcia MD 02/08/2016 10:38:43 Images reviewed and interpretation verified [facility] Cardiac Ultrasound Laboratory Riley Lara MD ECHO ORDERABLES * EKG 12 Lead (02/08/2016 9:58 AM EDT) Ventricular rate 74 BPM MUSE SYSTEM Atrial Rate 75 BPM MUSE SYSTEM P-R Interval 186 ms MUSE SYSTEM QRS Duration 86 ms MUSE SYSTEM Q-T Interval 396 ms MUSE SYSTEM QTC Calculated (Bezet) 439 ms MUSE SYSTEM Calculated P [place] 38 degrees MUSE SYSTEM Calculated R [place] 36 degrees MUSE SYSTEM Calculated T [place] 50 degrees MUSE SYSTEM INTERPRETATION Normal sinus rhythm Nonspecific ST abnormality Abnormal ECG No previous ECGs available Confirmed by MD Yared, Leo ([id number]) on 02/08/2016 3:04:02 PM MUSE SYSTEM 02/08/2016 9:58 AM EDT 02/08/2016 3:04 PM EDT Riley Lara MD ECG ORDERABLES MUSE SYSTEM * TSH (02/08/2016 6:25 AM EDT) Thyroid Stimulating Hormone 1.99 0.27 - 4.20 mcIU/mL [facility] Blood specimen (specimen) Venous Draw / Unknown 02/08/2016 6:25 AM EDT 02/08/2016 7:02 AM EDT Narrative Resulting Agency Comment Spec In Lab Riley Lara MD CHEMISTRY ORDERABLES [facility] [place] [address] * (ABNORMAL) Basic Metabolic Panel (non-fasting) (02/08/2016 6:25 AM EDT) Glucose 95 65 - 199 mg/dL [facility] Comment:Diabetes: >=200 mg/d L plus symptoms Blood Urea Nitrogen 10 8 - 18 mg/dL [facility] Creatinine 0.73 0.70 - 1.20 mg/dL [facility] Comment: Please note that the pediatric reference intervals supplied above were not validated at [facility]. Results from pediatric patients should be interpreted in conjunction to the patient's age, height and muscle mass. Sodium 141 135 - 145 mmol/L [facility] Potassium 4.1 3.5 - 5.0 mmol/L [facility] Comment: Please note: ??Patients with WBC >100,000 may have falsely elevated Potassium levels. ??For accurate Potassium quantification in these patients send serum separator tube (gold top) for subsequent determinations. ??Contact the Clinical Chemistry Laboratory if there are any questions. Chloride 105 98 - 107 mmol/L [facility] Carbon Dioxide 24 22 - 31 mmol/L [facility] Anion Gap 12 5 - 15 mmol/L [facility] Calcium 8.2(L) 8.5 - 10.5 mg/dL [facility] Est Glomerular Filtration Rate >60 >=60 [facility] Comment: This estimated GFR (eGFR) [...] the following links into your internet browser. [email or web address] Blood specimen (specimen) Venous Draw / Unknown 02/08/2016 6:25 AM EDT 02/08/2016 7:02 AM EDT Narrative Resulting Agency Comment Spec In Lab Riley Lara MD CHEMISTRY ORDERABLES [facility] [place] [address] * Differential, Automated (02/08/2016 6:25 AM EDT) Neutrophil % 56.9 % [facility] Neutrophil Absolute 3.95 1.50 - 6.30 x10(3)/[facility] Lymph % 30.9 % [facility] Lymphocytes Abs 2.2 1.0 - 3.6 x10(3)/[facility] LAB[facility] Monocyte % 10.5 % [facility] Monocyte Abs 0.7 0.2 - 1.0 x10(3)/[facility] LABOR[facility]ORY Eos % 1.3 % [facility] Eosinophils Abs 0.1 0.0 - 0.5 x10(3)/[facility] Basophil % 0.3 % [facility] Baso Absolute 0.0 0.0 - 0.2 x10(3)/[facility]ORY Immature Gran % 0.10 % [facility] Comment: Immature granulocytes(IG's)percentage and absolute count will include metamyelocytes, myelocytes, and promyelocytes. Blood smears from CBCs yielding IG's will be scanned manually for concordance. If this scan disagrees with the automated IG or if promyelocytes are noted, a manual differential will be performed. Immature Gran Absolute 0.01 0.00 - 0.05 x10(3)/[facility] Blood specimen (specimen) 02/08/2016 6:25 AM EDT 02/08/2016 7:02 AM EDT Narrative Resulting Agency Comment Spec In Lab Riley Lara MD HEMATOLOGY ORDERABLE S [facility] [place] [address] * (ABNORMAL) Hemogram (02/08/2016 6:25 AM EDT) [facility] White Blood Cell 7.0 4.0 - 10.0 x10(3)/ L [facility] Red Blood Cell 4.32 3.93 - 5.22 x10(6)/[facility]ATORY Hemoglobin 12.0 11.2 - 15.7 gm/dL [facility] Hematocrit 35.6 34.0 - 45.0 % [facility] Mean Cell Volume 82.4 79.0 - 94.0 fL [facility] Mean Cell Hemoglobin 27.8 26.6 - 32.2 pg [facility] Mean Cell Hemoglobin Concentration 33.7 32.0 - 36.5 gm/dL [facility] Platelet 200 145 - 370 x10(3)/mc L [facility] RDW Standard Deviation 48.2(H) 35.0 - 46.0 fL [facility] RDW coefficient of variation 15.8(H) 10.9 - 14.4 % [facility] Mean Platelet Volume 10.1 9.0 - 12.0 fL [facility] Blood specimen (specimen) 02/08/2016 6:25 AM EDT 02/08/2016 7:02 AM EDT Narrative Resulting Agency Comment Spec In Lab Riley Lara MD HEMATOLOGY ORDERABLE S [facility] [place] [address] * (ABNORMAL) Cardiac Enzymes (02/08/2016 6:25 AM EDT) Troponin-T 0.48(H) <=0.03 ng/mL [facility] Comment: 0.03 ng/mL: Represents the 99th percentile upper reference limit for normals. >0.03 ng/mL: Elevated cardiac troponin T level indicative of myocardial damage. Diagnosis of acute, evolving or recent VA requires a typical rise and gradual fall [...] consensus document of the Joint Society of Cardiology/[place] College of Cardiology Committee for the redefinition of myocardial infarction. ??Journal of the [place] College of Cardiology 2000; 36: 959-969] Creatine Kinase 136 0 - 160 unit/L [facility] Blood specimen (specimen) 02/08/2016 6:25 AM EDT 02/08/2016 7:02 AM EDT Narrative Resulting Agency Comment Spec In Lab Riley Lara MD CHEMISTRY ORDERABLES Performing Organization Address [facility] Co de Phone Number [facility] [place] [address] * (ABNORMAL) Cardiac Enzymes (02/07/2016 11:45 PM EDT) Troponin-T 0.47(H) <=0.03 ng/mL [facility] Comment: 0.03 ng/mL: Represents the 99th percentile upper reference limit for normals. >0.03 ng/mL: Elevated cardiac troponin T level indicative of myocardial damage. Diagnosis of acute, evolving or recent VA requires a typical rise and gradual fall [...] consensus document of the Joint Society of Cardiology/[place] College of Cardiology Committee for the redefinition of myocardial infarction. ??Journal of the [place] College of Cardiology 2000; 36: 959-969] Creatine Kinase 158 0 - 160 unit/L [facility] Blood specimen (specimen) 02/07/2016 11:45 PM EDT 02/07/2016 11:49 PM EDT Narrative Resulting Agency Comment Spec In Lab Riley Lara MD CHEMISTRY ORDERABLES Performing Organization Address [facility]/ZIP Co de Phone Number [facility] [place] [address] * POCT Glucose (02/07/2016 9:37 PM EDT) Pathologist [facility] Glucose, POC 83 65 - 199 mg/dL [facility] Comment: Supplemental ranges: <140 mg/dL before meals <180 mg/dL all other times of the day Blood specimen (specimen) 02/07/2016 9:37 PM EDT 02/07/2016 9:37 PM EDT Riley Lara MD POINT OF CARE TEST O RDERABLES [facility] [place] [address] * THC (Marijuana), Urine Confirmation (02/07/2016 6:33 [...] employment-relat ed drug testing. Test Performed by: [employer] [address] [address] Tree Trimming Line Technician: Carolyn Kenny, Ph.D. [facility] Urine specimen (specimen) 02/07/2016 6:33 PM EDT 02/08/2016 8:31 AM EDT Narrative Resulting Agency Comment Spec In Lab Riley Lara MD LAB SEND OUT ORDERAB LES [facility] [place] [address] * (ABNORMAL) Rapid Drug Screen, Urine with Confirm (02/07/2016 6:33 PM EDT) KEON Marijuana Metabolites Screen Presumptive Pos(A) None Detected [facility] Comment: The marijuana metabolites screen detects the THC Metabolite (52-fsl-7-carboxy-? 9 -THC) at concentrations >50 ng/mL. Qualitative Drug screens are reported as ? None Detected? or ? Presumptive Positive? as the results are not routinely confirmed by highly-specific methods. As with any screen occasional false positive results from cross-reacting substances can occur. Not for Medico-Legal Purposes. Phencyclidine Screen, Urine None Detected None Detected [facility] Comment: The phencyclidine screen detects phencyclidine at concentrations >25 ng/mL. Qualitative Drug screens are reported as ? None Detected? or ? Presumptive Positive? as the results are not routinely confirmed by highly-specific methods. As with any screen occasional false positive results from cross-reacting substances can occur. Not for Medico-Legal Purposes. [facility] Cocaine Metabolites Screen None Detected None Detected [facility] Comment: The cocaine metabolites screen detects benzoylecgonine (Cocaine Metabolite) at concentrations >150 ng/mL. Qualitative Drug screens are reported as ? None Detected? or ? Presumptive Positive? as the results are not routinely confirmed by highly-specific methods. As with any screen occasional false positive results from cross-reacting substances can occur. Not for Medico-Legal Purposes. Methamphetamines Screen, Urine None Detected None Detected [facility] Comment: The methamphetamine screen detects d-methamphetamine at concentrations >500 ng/mL. Qualitative Drug screens are reported as ? None Detected? or ? Presumptive Positive? as the results are not routinely confirmed by highly-specific methods. As with any screen occasional false positive results from cross-reacting substances can occur. Not for Medico-Legal Purposes. [facility] Opiates Screen None Detected None Detected [facility] Comment: The opiates screen detects [...] [facility]ON Amphetamines Screen None Detected None Detected [facility] Comment: The amphetamine screen detects d-amphetamine at concentrations >500 ng/mL. Qualitative Drug screens are reported as ? None Detected? or ? Presumptive Positive? as the results are not routinely confirmed by highly-specific methods. As with any screen occasional false positive results from cross-reacting substances can occur. Not for Medico-Legal Purposes. KEON Benzodiazepines Screen None Detected None Detected [facility] Comment: The benzodiazepines screen detects [...] [facility] Tricyclics Screen None Detected None Detected [facility] Comment: The tricyclics screen detects [...] KEON Methadone Screen None Detected None Detected [facility] Comment: The methadone screen detects methadone at concentrations >200 ng/mL. Qualitative Drug screens are reported as ? None Detected? or ? Presumptive Positive? as the results are not routinely confirmed by highly-specific methods. As with any screen occasional false positive results from cross-reacting substances can occur. Not for Medico-Legal Purposes. KEON Barbiturates Screen None Detected None Detected [facility] Comment: The barbiturates screen detects [...] KEON Oxycodone Srceen None Detected None Detected [facility] Comment: The oxycodone screen detects oxycodone at concentrations >100 ng/mL and oxymorphone >250 ng/ml. Qualitative Drug screens are reported as ? None Detected? or ? Presumptive Positive? as the results are not routinely confirmed by highly-specific methods. As with any screen occasional false positive results from cross-reacting substances can occur. Not for Medico-Legal Purposes. Propoxyphene Screen, Urine None Detected None Detected [facility] Comment: The propoxyphene screen detects propoxyphene at concentrations >300 ng/mL. Qualitative Drug screens are reported as ? None Detected? or ? Presumptive Positive? as the results are not routinely confirmed by highly-specific methods. As with any screen occasional false positive results from cross-reacting substances can occur. Not for Medico-Legal Purposes. KEON Buprenorphine Screen None Detected None Detected [facility] Comment: The buprenorphine screen detects buprenorphine at concentrations >10 ng/mL. Qualitative Drug screens are reported as ? None Detected? or ? Presumptive Positive? as the results are not routinely confirmed by highly-specific methods. As with any screen occasional false positive results from cross-reacting substances can occur. Not for Medico-Legal Purposes. KEON Adulterants Screen None Detected None Detected [facility] Comment: No adulteration or dilution of this urine sample was detected. All urine samples submitted for urine drugs of abuse analysis are tested for Creatinine and pH and for the presence of oxidants, nitrites, chromate and aldehydes (glutaraldehyde). Urine specimen (specimen) 02/07/2016 6:33 PM EDT 02/07/2016 6:48 PM EDT Narrative Resulting Agency Comment Spec In Lab Riley Lara MD URINE ORDERABLES Performing Organization Address City/Va Hospital/ZIP Co de Phone Number [facility] [place] [address] * Blue Tube HOLD (02/07/2016 6:10 PM EDT) [facility] Blue Hold Sample in lab. [facility] Blood specimen (specimen) Venous Draw / Unknown 02/07/2016 6:10 PM EDT 02/07/2016 6:18 PM EDT Riley Lara MD HEMATOLOGY ORDERABLE S Performing Organization Address [facility]/Va Hospital/[facility] [place] [address] * Differential, Automated (02/07/2016 6:10 PM EDT) [facility] Neutrophil % 66.5 % [facility] Neutrophil Absolute 4.77 1.50 - 6.30 x10(3)/[facility] Lymph % 23.8 % [facility] Lymphocytes Abs 1.7 1.0 - 3.6 x10(3)/[facility] Monocyte % 8.5 % [facility] Monocyte Abs 0.6 0.2 - 1.0 x10(3)/[facility] LAB[facility] Eos % 1.0 % [facility] Eosinophils Abs 0.1 0.0 - 0.5 x10(3)/[facility] Basophil % 0.1 % [facility] Baso Absolute 0.0 0.0 - 0.2 x10(3)/[facility] Immature Gran % 0.10 % [facility] Comment: Immature granulocytes(IG's)percentage and absolute count will include metamyelocytes, myelocytes, and promyelocytes. Blood smears from CBCs yielding IG's will be scanned manually for concordance. If this scan disagrees with the automated IG or if promyelocytes are noted, a manual differential will be performed. Immature Gran Absolute 0.01 0.00 - 0.05 x10(3)/[facility] Blood specimen (specimen) 02/07/2016 6:10 PM EDT 02/07/2016 6:17 PM EDT Narrative Resulting Agency Comment Spec In Lab Riley Lara MD HEMATOLOGY ORDERABLE S [facility] [place] [address] * (ABNORMAL) Hemogram (02/07/2016 6:10 PM EDT) White Blood Cell 7.2 4.0 - 10.0 x10(3)/[facility] Red Blood Cell 4.69 3.93 - 5.22 x10(6)/mc L [facility] Hemoglobin 13.2 11.2 - 15.7 gm/dL [facility] Hematocrit 38.2 34.0 - 45.0 % [facility] Mean Cell Volume 81.4 79.0 - 94.0 fL [facility] Mean Cell Hemoglobin 28.1 26.6 - 32.2 pg [facility] Mean Cell Hemoglobin Concentration 34.6 32.0 - 36.5 gm/dL [facility] Platelet 203 145 - 370 x10(3)/ L [facility] RDW Standard Deviation 47.1(H) 35.0 - 46.0 fL [facility] RDW coefficient of variation 15.9(H) 10.9 - 14.4 % [facility] Mean Platelet Volume 9.5 9.0 - 12.0 fL [facility] Blood specimen (specimen) 02/07/2016 6:10 PM EDT 02/07/2016 6:17 PM EDT Narrative Resulting Agency Comment Spec In Lab Riley Lara MD HEMATOLOGY ORDERABLE S Performing Organization Address City/Va Hospital/ZIP Co de Phone Number [facility] [place] [address] * Magnesium (02/07/2016 6:10 PM EDT) Pathologist [facility] Magnesium 0.71 0.69 - 1.07 mmol/L [facility] Blood specimen (specimen) 02/07/2016 6:10 PM EDT 02/07/2016 6:17 PM EDT Narrative Resulting Agency Comment Spec In Lab Riley Lara MD CHEMISTRY ORDERABLES [facility] [place] [address] * (ABNORMAL) Comprehensive metabolic panel (non-fasting) (02/07/2016 6:10 PM EDT) Pathologist [facility] Glucose 89 65 - 199 mg/dL [facility] Comment:Diabetes: >=200 mg/d L plus symptoms Blood Urea Nitrogen 10 8 - 18 mg/dL [facility] Creatinine 0.79 0.70 - 1.20 mg/dL [facility] Comment: Please note that the pediatric reference intervals supplied above were not validated at [facility]. Results from pediatric patients should be interpreted in conjunction to the patient's age, height and muscle mass. Sodium 141 135 - 145 mmol/L [facility] Potassium 4.0 3.5 - 5.0 mmol/L [facility] Comment: Please note: ??Patients with WBC >100,000 may have falsely elevated Potassium levels. ??For accurate Potassium quantification in these patients send serum separator tube (gold top) for subsequent determinations. ??Contact the Clinical Chemistry Laboratory if there are any questions. Chloride 103 98 - 107 mmol/L [facility] Carbon Dioxide 24 22 - 31 mmol/L [facility] Anion Gap 14 5 - 15 mmol/L [facility] Calcium 8.7 8.5 - 10.5 mg/dL [facility] Protein, Total 6.6 6.1 - 8.0 gm/dL [facility] Albumin 3.4 3.2 - 5.2 gm/dL [facility] Aspartate Aminotransferase 45(H) 0 - 30 unit/L [facility] Alanine Aminotransferase 16 0 - 30 unit/L [facility] Alkaline Phosphatase 74 40 - 104 unit/L [facility] Bilirubin, Total 1.0 0.2 - 1.3 mg/dL [facility] Bilirubin, Direct 0.3 0.0 - 0.3 mg/dL [facility] Est Glomerular Filtration Rate >60 >=60 [facility] Comment: This estimated GFR (eGFR) [...] the following links into your internet browser. [email or web address] Blood specimen (specimen) 02/07/2016 6:10 PM EDT 02/07/2016 6:17 PM EDT Narrative Resulting Agency Comment Spec In Lab Riley Lara MD CHEMISTRY ORDERABLES [facility] [place] [address] * (ABNORMAL) Cardiac Enzymes (02/07/2016 6:10 PM EDT) Troponin-T 0.50(H) <=0.03 ng/mL [facility] Comment: 0.03 ng/mL: Represents the 99th percentile upper reference limit for normals. >0.03 ng/mL: Elevated cardiac troponin T level indicative of myocardial damage. Diagnosis of acute, evolving or recent [place] requires a typical rise and gradual fall [...] consensus document of the Joint Society of Cardiology/[place] College [employer]iology Committee for the redefinition of myocardial infarction. ??Journal of the [place] College of [employer]iology 2000; 36: 959-969] Creatine Kinase 178(H) 0 - 160 unit/L [facility] Blood specimen (specimen) 02/07/2016 6:10 PM EDT 02/07/2016 6:17 PM EDT Narrative Resulting Agency Comment Spec In Lab Riley Lara MD CHEMISTRY ORDERABLES [facility] [place] [address] * Film Library- Storage only DX Chest (02/07/2016 12:00 AM EDT) Narrative User, Generic Transmittal - 02/07/2016 6:45 PM EDT This exam is for storage only and is auto-finalizing. Riley Lara MD IMG FILM LIBRARY ORD ERABLES documented in this encounter Visit Diagnoses Diagnosis ST elevation myocardial infarction (STEMI), unspecified artery Chest pain, unspecified type Pain Generalized pain Atypical angina Other and unspecified angina pectoris documented in this encounter Admitting Diagnoses Diagnosis Atypical [...] Given 02/08/2016 11:52 AM EDT 40 mg pantoprazole (PROTONIX) tablet 40 mg 40 mg, Oral, ONCE, On Sat02/07/16 at 2200, 1 dose, DO NOT CRUSH OR OPEN Given 02/07/2016 10:02 PM EDT 40 mg senna-docusate (PERICOLACE) 8.6-50 mg [...] Given 02/07/2016 10:03 PM EDT 5 mLs sodium chloride 0.9% 500 mL IV bolus Intravenous, ONCE, 1 dose, On Sat02/07/16 at 2215 Given 02/07/2016 10:01 PM EDT sodium chloride 0.9% infusion 100 mL/hr, Intravenous, CONTINUOUS, Starting on Sat02/07/16 at 1645, Until Sat02/08/16 at 0929, Recovery (Recovery-Hospital Unit) New Bag 02/07/2016 4:35 PM EDT 100 mL/hr 100 mL /hr sodium chloride 0.9% infusion 100 mL/hr, Intravenous, CONTINUOUS, Starting on Sat02/07/16 at 1815, Until Sat02/08/16 at 0929, After her NS drip that was started in outside laborer. New Bag 02/08/2016 8:23 AM EDT 100 mL/hr 100 mL/hr Rate/Dose Verify 02/08/2016 3:00 AM EDT 100 mL/hr 100 mL/ hr New Bag 02/07/2016 10:32 PM EDT 100 mL/hr 100 mL/hr documented in [...] at 2215 2201 (Given - Provider: Toshia Ruiz, ALICIA) Continuous Medication Order 02/06/2016 02/07/2016 02/08/2016 sodium chloride 0.9% infusion (CANCELED) 100 mL/hr, Intravenous, CONTINUOUS, Starting on Sat02/07/16 at 1645, Until Sat02/08/16 at 0929, Recovery (Recovery-Hospital Unit) 1635 (New Bag - Provider: Tanya Ruth RN) sodium chloride 0.9% infusion (CANCELED) 100 mL/hr, Intravenous, CONTINUOUS, Starting on Sat02/07/16 at 1815, Until Sat02/08/16 at 0929, After her NS drip that was started in outside laborer. 2232 (New Bag - Provider: Toshia Ruiz RN) 0300 (Rate/Dose Verify - Provider: Toshia Ruiz RN)0823 (New Bag - Provider: Pablo Ramirez, ALICIA)0936 (Stopped - Provider: Pablo Ramirez RN) PRN [...] Routine documented in this encounter Care Teams Pointer Machine Operator Relationship Specialty Start Date End Date Kathleen Ratliff, [address] [place] [address] PCP - General Family Medicine 02/07/16 05/01/17 documented as of this encounter
--- OUTSIDE RECORDS SUMMARY | 2024-07-07 13:40 | XMS_ITS | Encounter Summary ---
Author Organization [facility] Address [facility] [place] [address] Care Team Providers Care Trailer Body Assembler Name Role Phone Amber Ratliff Alber FRANKLIN Primary Care Provider Reason for Visit * Reason Comments Establish Care * Consultation (Routine) - Closed Specialty Diagnoses / Procedures Referred By Marcelo tucker Referred To Contact General Surgery Diagnoses VENTRAL HERNIA Tim Rivera MD [address] [place] [id number] [facility] [address] [place] [id number] Referral ID Status Reason Start Date Expiration Date Visits Re quested Visits Authorized [id number] Closed 04/02/2016 04/02/2017 1 1 Encounter Details Date Type Department Care Team (Late st Contact Info) Description 05/30/2016 1:45 PM EDT Office Visit [place] [phone] Sabas Benito MD [address] [place] [address] [place] [address] Epigastric hernia Social History Tobacco Use Types Packs/Day Years [...] Sign Reading Time Taken Comments Blood Pressure 121/50 05/30/2016 1:35 PM EDT Pulse 68 05/30/2016 1:35 PM EDT Temperature - - Respiratory Rate - - Oxygen Saturation 97% 05/30/2016 1:35 PM EDT Inhaled Oxygen Concentration - - Weight 121 kg (266 lb 11.2 oz) 05/30/2016 1:35 P M EDT Height 159.4 cm (5' 2.75) 05/30/2016 1:35 PM ED T Body Mass Index 47.62 05/30/2016 1:35 PM EDT documented in this encounter Progress Notes * Guilherme Rivera, - 05/30/2016 1:45 PM EDT [facility] Department of Surgery Outpatient Consultation Note Reason for Consultation: Ventral Hernia Referring Provider: Tim Rivera MD [address] [place] [address] History of Present Illness: Telma Richter is a very pleasant 66 yo female that presents with a ventral hernia. This was discovered during a work up for chest pain in March 2016. This hernia does cause hersome discomfort. Denies N/V, diarhea, TYSON, CP/SOB. She is unsure if it has changed in size. Denies change in appetite. She has lost 50 lbs intentionally over the past year. Pressure/exertion makes it worse. Allergies: No Known Allergies Past Medical History: No past medical history on file. Hepatitis C cirrhosis Portal Hypertentsion Past Surgical History: No past surgical history on file. Laparoscopic cholecystectomy Laparoscopic tubal ligation Medications: Current Outpatient Prescriptions on File Prior to Visit Medication Sig Dispense Refill ??? aspirin 81 mg Tablet, Chewable Take 81 mg by mouth daily. 30 tablet 3 ??? atorvastatin (LIPITOR) 20 mg Tablet Take 1 tablet by mouth daily. 30 tablet 3 ??? cholecalciferol, Vitamin D3, (CHOLECALCIFEROL, VITAMIN D3,) 2,000 unit Capsule Take by mouth. ??? omeprazole (PRILOSEC) 20 mg Capsule, Delayed Release(E.C.) Take 20 mg by mouth daily. ??? albuterol (VENTOLIN HFA) 90 mcg/actuation HFA Aerosol Inhaler Inhale 2 puffs into the lungs every 4 hours as needed for Wheezing. Use with spacer ??? acetaminophen (TYLENOL) 500 mg Tablet Take 500 mg by mouth every 6 hours as needed for Pain. Current Facility-Administered Medications on File Prior to Visit Medication Dose Route Frequency Provider Last Rate Last Dose ??? midazolam (PF) (VERSED) 1 mg/mL multi-dose injection Once PRN Flavio Daniels MD 1 mg at 02/07/16 1543 ??? fentaNYL 50 mcg/mL multi-dose injection Once PRN Flavio Daniels MD 50 mcg at 02/07/16 1543 ??? heparin (porcine) injection Once PRN Flavio Daniels MD 8,000 Units at 02/07/16 1551 Family History: No family history on file. Non contributory Social History: Social History Social History ??? Marital status: [...] ??? Not on file Social History Narrative ??? No narrative on file Review of Systems: 10 point review of system preformed, pertinent findings noted in HPI Physical Exam: Vitals: 05/30/16 1335 BP: 121/50 BP Location (NBP): Right arm Patient Position: Sitting BP Cuff Sizes: Large Adult (32-43 cm) Pulse: 68 SpO2: 97% Weight: (!) 121 kg (266 lb 11.2 oz) Height: 159.4 cm (5' 2.75) Body mass index is 47.62 kg/(m^2). Constitutional: well developed and well nourished Eyes: No scleral icterus CV: RRR, no murmurs Pulm/Resp: No acute respiratory distress, CTAB Abd: Obsese, TTP upper abdomen, no discernable hernia in epigastrium or umbilical but exam limited to patient body habitus MSK: Motor and sensation grossly intact all extremities Neurologic: AAO x 3, CN II-XII grossly intact Skin: No jaundice, no abrasions present Labs: No results for input(s): WBC, RBC, HGB, HCT, MCV, MCH, MCHC, PLATELET, RDWCV in the last 168 hours. LFT's No results found for: ALKPHOS, AST, ALBUMIN, BILIDIR, BILITOT, ALT, PROT Imaging: CT Abdomen and Pelvis 03/13/2016 - see below Active Problems: Patient Active Problem List Diagnosis Code ??? Atypical angina I20.8 Assesment: Pt is a pleasant female that presents with 2 ventral incisional hernias. Her past medical history is notable for HCV cirrhosis and portal HTN Plan: - Labs and imaging reviewed. Most recent CBC shows normal platelet count. CT shows 2 ventral hernias, containing recanalized umbilical vein. There is no bowel in hernia - Pt very high risk for surgery given liver disease, although she is cured of her HCV, given her portal hypertension. Her umbilical vein location makes the surgery technically very difficult and highrisk for bleeding - Regardless of her liver pathology, she is a high recurrence risk based on her BMI. - Recommend additional 50 lb weight loss. This alone may help her pain. If she still desires surgery, she should return to clinic after weight loss for discussion. - Signs and symptoms of incarceration dicussed with patient. This is low risk given epigastric hernia location above liver and no bowel in either defect. - Follow up jerardon GUILHERME RIVERA DO General Surgery Attending Addendum: I examined the patient independently from the resident Dr. Lugo and reviewed the results and CT scan images as described above. The patient is a high risk surgical candidate as described above, I reviewed the CT images with the patient and all questions were answered. I agree with the assessment and plan. Sabas Benito M.D., FACS documented in this encounter Plan of Treatment Upcoming Encounters Date Type Department Care Team (Late st Contact Info) Description 07/22/2024 9:00 AM EST Appointment [place] [phone] Ana Ho MD [facility] [place] [address] 07/22/2024 10:00 AM EST Laboratory Appointment Lab [address] [place] [phone] 07/22/2024 11:00 AM EST Office Visit [place] [phone] Ana Ho MD [facility] [place] [place] [address] 09/15/2024 10:00 AM EST TH Visit (TeleHealth) [place] [phone] Candy Clifford MD [facility] [address] [place] [address] Scheduled Procedures Name Priority Associated Diagnoses Date/Ti me EGD, UPPER GI ENDOSCOPY (WRV U 2.09) Hepatic cirrhosis, unspecified hepatic cirrhosis type, unspecified whether ascites present documented as of this encounter Visit Diagnoses Diagnosis Epigastric hernia Other ventral hernia without mention of obstruction or gangrene documented in this encounter Care Teams Trailer Body Assembler Relationship Specialty Start Date End Date Amber Ratliff APRN [address] [place] [address] PCP - General Family Medicine 02/07/16 05/01/17 documented as of this encounter
[2024-07-07 15:01] LABS: Calculated LDL 58 mg/dL (<100); Cholesterol 122 mg/dL (<200); HDL Cholesterol 48 mg/dL (40-60); Triglyceride 82 mg/dL (<150)
== END 2024-07-07 13:34 | disposition home or self-care (01) ==
LOC: NCHCN 13:33
PROVIDERS: PCP Student in an Organized Health Care Education/Training Program; Visit Provider Student in an Organized Health Care Education/Training Program
DX: E78.5 Hyperlipidemia, unspecified (principal)
CPT/HCPCS: 80061

== ENCOUNTER 2024-10-07 20:31 | Outpatient (REF) | payer MEDICAID, SELFPAY ==
[2024-10-07 15:18] LABS: Abs Immature Grans 0.01 10^3/uL (0.0-0.06); Absolute Basophil Count 0.03 10^3/uL (0.0-0.2); Absolute Eosinophil Count 0.13 10^3/uL (0.0-0.7); Absolute Lymphocyte Count 1.64 10^3/uL (1.2-3.4); Absolute Neutrophil Count 2.83 10^3/uL (1.2-6.7); Basophils % 0.6 %; Eosinophils % 2.5 %; HCT 42.6 % (36.0-46.0); HGB 14.2 g/dL (11.2-15.7); Immature Grans % 0.2 %; Lymphocytes % 31.9 %; MCH 30.9 pg (27.0-33.0); MCHC 33.3 % (32.0-36.0); MCV 93 fL (80-95); MPV 10.5 fL (8.0-11.0); Monocytes % 9.7 %; Neutrophils % 55.1 %; Platelet Count 211 10^3/uL (130-400); RDW 13.2 % (11.7-14.6); RDW-SD 44.7 fL; WBC 5.14 10^3/uL (4.4-10.8)
[2024-10-07 15:39] LABS: Hemoglobin A1C 5.2 % (<5.7)
--- OUTSIDE RECORDS SUMMARY | 2024-10-07 20:35 | XMS_ITS | Encounter Summary ---
Author Organization [facility] Address [address] [place] [address] Care Team Providers Care Water Aerobics Instructor Name Role Phone Amber Ratliff CARD FIXER Primary Care Provider [phone] Encounter Details Date Type Department Care Team ([facility] st Contact Info) Description 08/16/2017 Results Only [facility] [phone] Clayton Bhatia DO [address] [place], [place] [phone] Social History Tobacco Use Types Packs/Day Years Used Date Smoking Tobacco: Never Assessed Comments Unknown Sex and Gender Information Value Date Recorded Sex Assigned at Not on file Legal Sex Female 9:17 EDT Gender Identity Not on file Sexual Orientation [...] ? TELMA RICHTER ? Accession #: ? [id number] ? : ? 1950 (Age: 67) ??F [...] (ASCP) 08/20/2017 10:55 AM End of Report [facility] 08/16/2017 9:40 EST 08/19/2017 9:40 EST Clayton Bhatia DO PATHOLOGY ORDERABLES Final Resul t [facility] [address] [place] [address] documented in this encounter Visit Diagnoses Not on filedocumented in this encounter Care Teams Water Aerobics Instructor Relationship Specialty Start Date End Date Amber Ratliff ARNP [address] [place] [address] PCP - General 12/10/16 documented as of this encounter
--- OUTSIDE RECORDS SUMMARY | 2024-10-07 20:35 | XMS_ITS | Encounter Summary ---
Author Organization [facility] Address [address] [place] [address] Care Team Providers Care Technology Architect Name Role Phone Unknown, Provider Primary Care Provider Unava ilable Encounter Details Date Type Department Care Team (Late st Contact Info) Description 12/04/2016 Results Only [facility] [phone] Dustin Boyd MD [address] [facility] [address] [place] [address] Social History Tobacco Use Types [...] ? TELMA RICHTER ? Accession #: ? [id number] ? : ? 1950 (Age: 66) ??F ? Collect Date: ? 12/04/2016 ? Location: ? [facility] ? Receive Date: ? 12/05/2016 ? Provider: MANUEL BOYD MD Copy to: [facility] ? Final Pathologic Diagnosis: A. DUODENUM, 2ND [...] AM Document reviewed and electronically signed by: LELIA CAMPBELL MD Report ??Date: 12/07/2016 09:45 By [...] are submitted entirely in B1. TRENTON Sanchez ([facility]) 12/06/2016 8:49 AM End of Report [facility] 12/04/2016 18:4 0 EDT 12/05/2016 18:40 EDT us Dustin Boyd MD PATHOLOGY ORDERABLES Final Resul t [facility] [address] [place] [address] documented in this encounter Visit Diagnoses Not on filedocumented in this encounter Care Teams Technology Architect Relationship Specialty Start Date End Date Unknown, Provider, PCP - General 03/29/16 12/09/16 documented as of this encounter
--- OUTSIDE RECORDS SUMMARY | 2024-10-07 20:35 | XMS_ITS | Encounter Summary ---
Author Organization [facility] Address [address] [place] [address] Care Team Providers Care Wet And Dry Sugar Bin Operator Name Role Phone Unknown, Provider Primary Care Provider Unava ilable Encounter Details Date Type Department Care Team (Late st Contact Info) Description 03/27/2016 Results Only [facility] [phone] Dustin Boyd MD [address] [facility] [address] [place] [address] Social History Tobacco Use Types [...] ? TELMA RICHTER ? Accession #: ? [id number] ? : ? 1950 (Age: 65) ??F [...] Bray 03/29/2016 10:04 AM End of Report [facility] 03/27/2016 9:18 EDT 03/29/2016 9:18 EDT us Dustin Boyd MD PATHOLOGY ORDERABLES Final Resul t [facility] [address] [place] [address] documented in this encounter Visit Diagnoses Not on filedocumented in this encounter Care Teams Wet And Dry Sugar Bin Operator Relationship Specialty Start Date End Date Unknown, Provider, PCP - General 03/29/16 12/09/16 documented as of this encounter
--- OUTSIDE RECORDS SUMMARY | 2024-10-07 20:35 | XMS_ITS | Encounter Summary ---
Author Organization [facility] Address [address] [place] [address] Care Team Providers Care Podiatric Assistant Name Role Phone Amber Ratliff MAHSA Primary Care Provider [phone] Encounter Details Date Type Department Care Team (Late st Contact Info) Description 04/11/2021 Lab Requisition [facility] Pathology & Laboratory Medicine - [facility] [address] [place], [place] [address] Outr Resulting Lab, Provider Social History Tobacco Use Types Packs/Day Years Used Date Smoking Tobacco: Never Assessed Interpersonal Safety Answer Date Record ed Physically Hurt Never 04/04/2020 Verbally Threaten Not on file 04/04/2020 Comments Unknown Sex and Gender Information Value [...] Unknown 04/10/2021 17:00 EDT 04/11/2021 15:46 EDT us Provider Outr Resulting Lab MICROBIOLOGY - GENER AL ORDERABLES Final Result Performing Organization Address [facility] de Phone Number [facility] [address] [place] [address] * COVID-19 TESTING (04/10/2021 17:00 EDT) COVID-19 rt-PCR Result Negative Negative 04/12/2021 14:23 EDT [facility] Comment: This test has [...] history, and epidemiological information. Performed on the [employer] Fusion instrument Performing Lab [place] [facility] Lab 04/12/2021 14:23 EDT [facility] Swab 04/10/2021 17:0 0 EDT 04/11/2021 15:46 EDT us Provider Outr Resulting Lab MICROBIOLOGY - GENER AL ORDERABLES Final Result Performing Organization Address [facility] Co de Phone Number [facility] [address] [place] [address] documented in this encounter Visit Diagnoses Not on filedocumented in this encounter Care Teams Podiatric Assistant Relationship Specialty Start Date End Date Amber Ratliff ARNP [address] [place] [address] PCP - General 12/10/16 documented as of this encounter
--- OUTSIDE RECORDS SUMMARY | 2024-10-07 20:35 | XMS_ITS | Encounter Summary ---
Author Organization [facility] Address [address] [place] [address] Care Team Providers Care Teaching Assistant Name Role Phone Amber Ratliff SOLAR SALES CONSULTANT Primary Care Provider [phone] Encounter Details Date Type Department Care Team (Late st Contact Info) Description 05/09/2018 Results Only [facility] [phone] Clayton Bhatia DO [address] [place], [place] [id number] Social History Tobacco Use Types Packs/Day Years [...] ? TELMA RICHTER ? Accession #: ? [id number] ? : ? 1950 (Age: 67) ??F [...] A, D) and antral erythema are two pink-kendrick tissues (0.3 x 0.2 x 0.1 cm [...] (ASCP) 05/12/2018 7:55 AM End of Report [facility] 05/09/2018 16:4 4 EDT 05/09/2018 16:44 EDT us Clayton Bhatia DO PATHOLOGY ORDERABLES Final Resul t [facility] [address] [place] [address] documented in this encounter Visit Diagnoses Not on filedocumented in this encounter Care Teams Teaching Assistant Relationship Specialty Start Date End Date Amber Ratliff ARNP [address] [place] [address] PCP - General 12/10/16 documented as of this encounter
--- OUTSIDE RECORDS SUMMARY | 2024-10-07 20:35 | XMS_ITS | Encounter Summary ---
Author Organization [facility] Address [address] [place] [address] Care Team Providers Care School Office Assistant Name Role Phone Amber Ratliff Primary Care Provider [phone] Encounter Details Date Type Department Care Team (Latest Contact Info) Description 05/09/2018 10:47 EDT - 05/09/2018 23:59 EDT Hospital Encounter [address] [address] Unknown, Provider, MD Discharge Disposition: Home or [...] Code Departure Means Destination Home or Self Jail documented in this encounter Plan of Treatment Not on file documented as of this encounter Visit Diagnoses Not on filedocumented in this encounter Care Teams School Office Assistant Relationship Specialty Start Date End Date Amber Ratliff ARNP [address] [place] [address] PCP - General 12/10/16 documented as of this encounter
--- OUTSIDE RECORDS SUMMARY | 2024-10-07 20:35 | XMS_ITS | Referral Summary ---
Author Organization [facility] Address [address] [place] [address] Care Team Providers Care Dental Insurance Biller Name Role Phone Amber Ratliff MAHSA Primary Care Provider [phone] Social History Tobacco Use Types Packs/Day Years [...] file Plan of Treatment Not on file Insurance [employer] [place] [id number] Care Teams Dental Insurance Biller Relationship Specialty Start Date End Date Amber Ratliff ARNP [address] [place] [address] PCP - General 12/10/16
--- OUTSIDE RECORDS SUMMARY | 2024-10-07 20:35 | XMS_ITS | Encounter Summary ---
Author Organization [facility] Address [address] [place] [address] Care Team Providers Care Steel Plate Caulker Name Role Phone Amber Ratliff MAHSA Primary Care Provider [phone] Encounter Details Date Type Department Care Team (Late st Contact Info) Description 07/11/2021 Lab Requisition [facility] Pathology & Laboratory Medicine - [address] [address] Trey Torres MD [address] [place] [address] Excessive bleeding in the premenopausal period; [...] explore management options, if applicable. 07/14/2021 15:35 [facility] Final Diagnosis A. ENDOMETRIUM, CURETTAGE: - Endometrial polyp. See comment. - No cytologic atypia identified. 07/14/2021 15:35 [facility] Diagnosis Comment Deeper sections have been examined. 07/14/2021 15:35 [facility] Attestation There was significant resident/fellow involvement in the diagnostic evaluation of this case. By the signature below, the attending physician certifies that they have personally conducted a gross and/or microscopic examination of the described specimens and rendered or confirmed the above diagnosis. 07/14/2021 15:35 [facility] at 1535 Clinical History Uterine mass; clinical diagnosis code: N92.4, N84.1 07/14/2021 15:35 [facility] Gross Description A. Received in formalin labelled with proper patient identification (initials A, D) and endometrial curettings is a 2.5 x 1.5 x 0.4 cm aggregate of pink-kendrick soft tissue and mucus. The specimen is entirely submitted in A1. TRENTON BOWSER(ASCP) 07/12/2021 9:26 07/14/2021 15:35 [facility] Resident/Lamberto w: Gloria Shelley MD 07/14/2021 15:35 [facility] Performing Lab [facility] 07/14/2021 15:35 [facility] Scanned Images 07/14/2021 15:35 [facility] Tissue ENTIRE ENDOMETRIUM / Unknown 07/07/2021 17:15 EDT 07/11/2021 17:21 EST us Trey Torres MD PATHOLOGY ORDERABLES Final Res ult [facility] [address] [place] [address] documented in this encounter Visit Diagnoses Diagnosis Excessive bleeding in the premenopausal period Premenopausal menorrhagia Polyp of cervix uteri Mucous polyp of cervix documented in this encounter Care Teams Steel Plate Caulker Relationship Specialty Start Date End Date Amber Ratliff ARNP [address] [place] [address] PCP - General 12/10/16 documented as of this encounter
--- OUTSIDE RECORDS SUMMARY | 2024-10-07 20:35 | XMS_ITS | Clinical Summary ---
Author Organization [facility] Address [address] [place] [address] Care Team Providers Care Manager Library Name Role Phone Amber Ratliff MAHSA Primary Care Provider [phone] Social History Tobacco Use Types Packs/Day Years [...] Last Done Comments Hepatitis C Screen 1950 Fall Risk Screening 2016 COVID-19 Vaccine (2023- season) 2024 RSV Immunization ( o r 60+ Years) (1 - 1-dose 75+ series) 2026 Insurance [facility] MEDICARE Care Teams Manager Library Relationship Specialty Start Date End Date Amber Ratliff ARNP [address] [place] [address] PCP - General 12/10/16
--- OUTSIDE RECORDS SUMMARY | 2024-10-07 20:35 | XMS_ITS | Encounter Summary ---
Author Organization [facility] Address [address] [place] [address] Care Team Providers Care Hospitality Recruiter Name Role Phone Unavailable Primary Care Provider Unavailabl e Encounter Details Date Type Department Care Team (Latest Contact Info) Description 03/27/2016 9:57 EDT - 03/27/2016 23:59 EDT Hospital Encounter [address] [address] Unknown, Provider, MD Discharge Disposition: Home or [...] Code Departure Means Destination Home or Self Intermediate documented in this encounter Plan of Treatment Not on file documented as of this encounter Visit Diagnoses Not on filedocumented in this encounter
--- OUTSIDE RECORDS SUMMARY | 2024-10-07 20:35 | XMS_ITS | Encounter Summary ---
Author Organization [facility] Address [address] [place] [address] Care Team Providers Care Picture Painter Name Role Phone Amber Ratliff MAHSA Primary Care Provider [phone] Encounter Details Date Type Department Care Team (Late st Contact Info) Description 03/23/2021 Lab Requisition [facility] Pathology & Laboratory Medicine - [facility] [address] [place] [address] Justino Lucia MD [address] [place], [place] [address] Encounter for other general examination Social History [...] types, PCR Negative Negative 03/31/2021 15:32 EDT [facility] Comment:No E6 or E7 mRNA is detected from HPV types 16,18,31,33,35,39,45,51,52,56,58,59,66, and [address] mediated amplification. Papanicolaou smear specimen (specimen) CERVIX UTERI STRUCTURE / Unknown 03/21/2021 12:30 EDT 03/30/2021 15:47 EDT Justino Lucia MD MICROBIOLOGY - GENERAL ORDERABLE S Final Result [facility] [address] [place] [address] * PAP TEST (03/21/2021 12:30 EDT) Specimens A. Cervix and/or Endocervix , ThinPrep Imaging System with Manual Evaluation 04/03/2021 7:37 T [facility] Specimen Adequacy Satisfactory for Evaluation - transformation zone component present 04/03/2021 7:37 [facility] General Categorization Negative for intraepithelial lesion or malignancy 04/03/2021 7:37 [facility] Attestation By the signature below, the attending physician certifies that they have personally conducted a gross and/or microscopic examination of the described specimens and rendered or confirmed the above diagnosis. 04/03/2021 7:37 [facility] at 0737 Clinical History See below 04/03/20 7:37 [facility] HPV The result for the Human Papillomavirus (HPV) Detection-High Risk Types is Negative. No E6 or E7 mRNA is detected from HPV types 16,18,31,33,35,39 ,45,51,52,56,58,5 9,66, and [address] mediated amplification.Arcelia ting was performed on specimen [id number] and was resulted on 03/31/2021 1527 EDT by LOIS, LAB INSTRUMENT RESULTS IN 04/03/2021 7:37 EDT [facility] Performing Lab [facility] 04/03/2021 7:37 EDT [facility] Scanned Images 04/03/2021 7:37 EDT [facility] Papanicolaou smear specimen (specimen) CERVIX UTERI STRUCTURE / Unknown 03/21/2021 12:30 EDT 03/23/2021 12:40 EDT us Justino Lucia MD PATHOLOGY ORDERABLES Final Resul t [facility] [address] [place] [address] documented in this encounter Visit Diagnoses Diagnosis Encounter for other general examination documented in this encounter Care Teams Picture Painter Relationship Specialty Start Date End Date Amber Ratliff ARNP [address] [place] [address] PCP - General 12/10/16 documented as of this encounter
--- OUTSIDE RECORDS SUMMARY | 2024-10-07 20:35 | XMS_ITS | Encounter Summary ---
Author Organization [facility] Address [address] [place] [address] Care Team Providers Care Qa Tester Name Role Phone Unknown, Provider Primary Care Provider Unava ilable Encounter Details Date Type Department Care Team (Latest Contact Info) Description 12/04/2016 8:27 EDT - 12/04/2016 12:50 EDT Hospital Encounter [address] [address] Unknown, Provider, Discharge Disposition: Home or Self Care Social [...] Departure Means Destination Home or Self Senior Care documented in this encounter Plan of Treatment Not on file documented as of this encounter Visit Diagnoses Not on filedocumented in this encounter Care Teams Qa Tester Relationship Specialty Start Date End Date Unknown, Provider, PCP - General 03/29/16 12/09/16 documented as of this encounter
--- OUTSIDE RECORDS SUMMARY | 2024-10-07 20:35 | XMS_ITS | Encounter Summary ---
Author Organization [facility] Address [address] [place] [address] Care Team Providers Care Tennis Centre Manager Name Role Phone Amber Ratliff Primary Care Provider [phone] Encounter Details Date Type Department Care Team (Latest Contact Info) Description 08/16/2017 17:06 EST - 08/16/2017 23:59 EST Hospital Encounter [address] [address] Unknown, Provider, MD Discharge Disposition: Home or [...] Code Departure Means Destination Home or Self Long Term documented in this encounter Plan of Treatment Not on file documented as of this encounter Visit Diagnoses Not on filedocumented in this encounter Care Teams Tennis Centre Manager Relationship Specialty Start Date End Date Amber Ratliff ARNP [address] [place] [address] PCP - General 12/10/16 documented as of this encounter
--- OUTSIDE RECORDS SUMMARY | 2024-10-07 20:35 | XMS_ITS | Encounter Summary ---
Author Organization [facility] Address [address] [place] [address] Care Team Providers Care Engagement Liaison Name Role Phone Unknown, Provider Primary Care Provider Unava ilable Encounter Details Date Type Department Care Team (Latest Contact Info) Description 12/04/2016 12:51 EDT - 12/04/2016 23:59 EDT Hospital Encounter [address] [address] Unknown, Provider, Discharge Disposition: Home or Self [...] Code Departure Means Destination Home or Self Snf documented in this encounter Plan of Treatment Not on file documented as of this encounter Visit Diagnoses Not on filedocumented in this encounter Care Teams Engagement Liaison Relationship Specialty Start Date End Date Unknown, Provider, PCP - General 03/29/16 12/09/16 documented as of this encounter
--- OUTSIDE RECORDS SUMMARY | 2024-10-07 20:36 | XMS_ITS | Encounter Summary ---
Author Organization [facility] Address [facility] [place] [address] Care Team Providers Care Manager Employee Benefits Name Role Phone Justino Lucia MD Primary Care Provider [phone] Encounter Details Date Type Department Care Team (Late st Contact Info) Description 07/14/2024 Notes [place] [address] Priscilla Gonzalez Social History Tobacco [...] encounter Progress Notes * Priscilla Gonzalez - 07/14/2024 1:16 PM EST I faxed the application for assistance with Ozempic to [employer]. I will follow through once themanufacturer program makes a decision. This is for the 2024 enrollment year. documented in this encounter Plan of Treatment Upcoming Encounters Date Type Department Care Team (Late st Contact Info) Description 01/20/2025 9:00 AM EDT Laboratory Appointment Lab [address] [place] [address] 01/20/2025 9:30 AM EDT Appointment Ultrasound at [place] [phone] Ana Ho MD [facility] [place] [address] 01/20/2025 11:00 AM EDT Office Visit Gastroenterology at [place] [phone] Ana Ho MD [facility] [place] [address] 01/20/2025 12:00 PM EDT Office Visit Weight Center at [place] [phone] Candy Clifford MD [facility] [address] [place] [address] documented as of this encounter Goals Goal Patient Goal Type Associated Problems Recent Progress Patient-Stated? Author movement Exercise On track(2021 11:16 AM EDT) No Pankaj Mcadams Note: Try gentle movement like chair yoga, t'ai chi and qigong. Health System Safety Manager will send hand-outs. Use resistance bands. Health System Safety Manager will request a set be mailed. [...] meal ideas in the [employer] [facility] Keep food log until you are seen by the dieititian. Record everything you eat or drink, include time eaten and any emotional changes that are significant. relaxation/sleep Lifestyle No Pankaj Mcadams Note: Try some meditation/relaxation apps when I wake in the night and can't go back to sleep. Health System Safety Manager will send some to try. Tried apps but don't really like them as I like the quiet when going to sleep. [facility] 04/23 documented as of this encounter Visit Diagnoses Not on filedocumented in this encounter Care Teams Manager Employee Benefits Relationship Specialty Start Date End Date Justino Lucia MD PCP - General Family Medicine 10/04/21 07/21/24 documented as of this encounter
--- OUTSIDE RECORDS SUMMARY | 2024-10-07 20:36 | XMS_ITS | Encounter Summary ---
Author Organization Formerly [facility] [place] [address] Care Team Providers Care Wedding Consultant Name Role Phone Unavailable Primary Care Provider Unavailabl e Encounter Details Date Type Department Care Team (Late st Contact Info) Description 07/22/2024 11:00 AM EST Office [place] [address] Ana Ho MD [facility] DR [place] [address] Hepatic cirrhosis, unspecified hepatic cirrhosis type, unspecified whether ascites present (Primary Dx); Diarrhea, unspecified type; Portal hypertension Social History Tobacco Use Types [...] Sign Reading Time Taken Comments Blood Pressure 115/41 07/22/2024 10:48 AM EST Pulse 78 07/22/2024 10:48 AM EST Temperature - - Respiratory Rate - - Oxygen Saturation - - Inhaled Oxygen Concentration - - Weight 122.8 kg (270 lb 11.2 oz) 2023 10:48 AM EST Height - - Body Mass Index 49.51 05/22/2024 8:43 AM EDT documented in this encounter Progress Notes * Ana Ho MD - 07/22/2024 11:00 AM EST Gastroenterology and Hepatology Follow Up Note Patient: Telma Richter Sex: female : 1950 PCP: No primary care provider on file. 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, no EV -Last EGD 06/05/22 with small GOV2, no PHG, benign appearing gastric polyps [place] 06/05/22 with small TA -?HE, minimal elevation in ammonia and mild memory issues, improved May 2022, no treatment -FHx of hemochromatosis (HFE negative) -Following with [facility] since spring 2021 with good success in weight loss on GLP-1 -HCC screening: US 01/01/23 with no liver lesions, trace perihepatic ascites, normal spleen -MELD-Na = 7 on 01/01/23 -AFP = 3.2 on 12/14/21 -07/2023 CT A/P for HCC screening showed no new liver lesions but pulmonary nodule noted; has followed up with PCP about this -MELD labs from 07/2023 stable, all wnl. 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 I49.3 Edema of lower extremity R60.0 Epistaxis R04.0 Anxiety F41.9 Depression F32.A Anemia D64.9 Osteopenia M85.80 PSVT (paroxysmal supraventricular tachycardia) I47.10 Cirrhosis K74.60 History of hepatitis C Z86.19 Asthma J45.909 Hypertension I10 Class 3 severe obesity with serious comorbidity and body mass index (BMI) of 50.0 to 59.9 in adult E66.813, E66.01, Z68.43 History of alcohol abuse F10.11 Hyperlipidemia E78.5 History of colon polyps Z86.0100 Osteoarthritis of hip M16.9 History of shoulder replacement Z96.619 Portal hypertension K76.6 Prediabetes R73.03 Insulin resistance E88.819 NAFLD (nonalcoholic fatty liver disease) K76.0 Interval History: Ms. Telma Richter is 74 y.o. with a history of cirrhosis suspected due to combination of hepatitis C (treated and cured) as well as MASH/GRIFFIN. -RUQUS today without new liver lesions. No ascites. Continues furosemide. -Repeat EGD due for EV screening given active metabolic risk factors, not yet scheduled -insurance would not cover semaglutide, after one year had to stop taking. Lost 90 lbs on it. Was able to get PA so back on it a few months ago. Has not yet lost more weight since restarting. -BM are improved now, attributes to taking psyllium QD. BM is daily, formed, without blood. Not taking Imodium. -denies abdominal distention or pain. No bloating. -Improving on salt in food. Tries not to add salt to foods. Cooks most meals. Overall improved but not completely cut out -no new confusion, no change in sleep pattern or memory loss -continues to abstain from etoh, last drink over 20 years ago -lives at home with son. 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 Still enjoys it, but now the only one there. MEDICATIONS: Current Outpatient Medications Medication Sig Dispense Refill semaglutide (Ozempic) 2 mg/dose (8 mg/3 mL) Pen Injector Inject 2 mg subcutaneously once a week. 12mL 3 acetaminophen (Tylenol) 500 mg tablet Take 1,000 mg by mouth every 6 hours as needed for Pain. loperamide (Imodium A-D) 2 mg capsule take 1 capsule by mouth four times a day if needed for diarrhea MAX OF 16 MILLIGRAMS IN 24 HOURS 90 capsule 0 omeprazole (PriLOSEC) 40 mg Capsule, Delayed Release(E.C.) [...] as needed for Wheezing. Use with spacer psyllium husk (psyllium) Take 1 packet by mouth daily. (Patient not taking: Reported on 01/17/2024) 90 packet 3 No current facility-administered medications for this visit. [...] for the past 24 hrs: Pulse BP 07/22/24 1048 78 115/41 GEN: well appearing, using cane. NAD. A&O x3. HEENT: EOMI. MMM, clear OP CV: RRR nl S1S2 PULM: CTABL ABD: protuberant, NTND. NBS. No rebound or guarding. No asterixis. LE: trace edema to calves, symmetric. WWP PERTINENT LABS AND IMAGING: Recent Results (from the past 24 hour(s)) CBC (with Diff) Result Value Ref Range White Blood Cell 5.05 4.00 - 9.50 x10(3)/mcL Red Blood Cell 4.51 4.00 - 5.21 x10(6)/mcL Hemoglobin 13.8 11.7 - 15.5 g/dL Hematocrit 41.3 35.7 - 45.8 % Mean Cell Volume 91.6 82.6 - 94.4 fL Mean Cell Hemoglobin 30.6 27.1 - 32.0 pg Mean Cell Hemoglobin Concentration 33.4 31.7 - 35.0 g/dL Platelet 217 145 - 357 x10(3)/mcL Mean Platelet Volume 9.9 7.6 - 12.9 fL RDW Standard Deviation 46.6 (H) 37.0 - 46.0 fL RDW coefficient of variation 13.7 11.5 - 14.1 % NRBC% auto 0.0 % NRBC Absolute <0.01 <0.01 x10(3)/mcL Neutrophil % 59.2 % Neutrophil Absolute (ANC) - Automated 2.99 1.70 - 6.10 x10(3)/mcL Lymph % 28.5 % Lymph Absolute 1.44 0.90 - 3.20 x10(3)/mcL Monocyte % 8.7 % Monocyte Absolute 0.44 0.30 - 0.90 x10(3)/mcL Eos % 3.0 % Eos Absolute 0.15 0.00 - 0.40 x10(3)/mcL Basophil % 0.4 % Baso Absolute <0.04 0.00 - 0.10 x10(3)/mcL Immature Gran % 0.2 % Immature Gran Absolute <0.04 0.00 - 0.04 x10(3)/mcL TSH Result Value Ref Range Thyroid Stimulating Hormone 0.97 0.27 - 4.20 mcIU/mL Lipid Panel (Reflex Direct LDL) Result Value Ref Range Cholesterol, Total 126 mg/dL Triglyceride 85 mg/dL HDL Cholesterol 47 mg/dL LDL Cholesterol 62 mg/dL Non-HDL Cholesterol 79 mg/dL Hemoglobin A1c Result Value Ref Range Hemoglobin A1c 5.0 4.3 - 5.6 % Estimated Average Glucose Prothrombin Time Result Value Ref Range Prothrombin Time 13.0 (H) 9.4 - 12.5 sec International Normalization Ratio 1.1 <=4.9 Comprehensive metabolic panel (non-fasting) Result Value Ref Range Glucose 86 65 - 99 mg/dL Blood Urea Nitrogen 9 8 - 18 mg/dL Creatinine 0.67 (L) 0.70 - 1.20 mg/dL Sodium 141 135 - 145 mMol/L Potassium 3.8 3.5 - 5.0 mMol/L Chloride 104 98 - 107 mMol/L Carbon Dioxide 28 22 - 31 mMol/L Anion Gap 9 5 - 15 mMol/L Calcium 9.0 8.5 - 10.5 mg/dL Protein, Total 6.7 6.1 - 8.0 g/dL Albumin 3.6 3.2 - 5.2 g/dL Aspartate Aminotransferase 25 <=30 unit/L Alanine Aminotransferase 17 0 - 30 unit/L Alkaline Phosphatase 70 35 - 105 unit/L Bilirubin, Total 1.0 <=1.3 mg/dL Est Glomerular Filtration Rate - Female 92 mL/min/1.73 m?? Fasting Status Yes MELD 3.0: 8 at 07/22/2024 9:38 AM MELD-Na: 7 at 07/22/2024 9:38 AM Calculated from: Serum Creatinine: 0.67 mg/dL (Using min of 1 mg/dL) at 07/22/2024 9:38 AM Serum Sodium: 141 mMol/L (Using max of 137 mMol/L) at 07/22/2024 9:38 AM Total Bilirubin: 1.0 mg/dL at 07/22/2024 9:38 AM Serum Albumin: 3.6 g/dL (Using max of 3.5 g/dL) at 07/22/2024 9:38 AM INR(ratio): 1.1 at 07/22/2024 9:38 AM Age at listing (hypothetical): 74 years Sex: Female at 07/22/2024 9:38 AM Endoscopy: 06/2023 EGD Impression: - Normal [...] polyp, resection: - Fragments of tubular adenoma. Imagin07/2024 RUQUS 1. Coarsely echogenic hepatic parenchyma with capsular nodularity consistent with cirrhosis. No focal hepatic lesion seen. 2. The main portal vein is patent with normal directional flow. 3. No ascites. 4. Status post cholecystectomy. No biliary ductal dilatation. 5. Incidental note of 4.6 cm simple right renal cyst. 01/2024 RUQUS IMPRESSION 1. Liver demonstrates coarsened parenchyma [...] ASSESSMENT & PLAN: Telma Richter is a 74 y.o. 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 She has no known history of decompensation though she does have evidence of portal hypertension with gastric varices and previously trace ascites although none on recent US. She also has lower extremity edema. At the moment, she is reasonably compensated, with MELD- Na score of 7. There were previous concerns of hepatic encephalopathy however not on today's visit. She had been having excellent success with weightloss on GLP-1 agonist and now recently resumed after obtaining PA. Plan: -psyllium QD -has Imodium 2mg prn -Continue follow-up with [facility] re: semaglutide. -Continue maintaining alcohol sobriety indefinitely. -Repeat EGD due for EV screening given active metabolic risk factors, overdue. Will message schedulers. Given small GV (IGV-1), Pl>150, would hold on NSBB at this time -on furosemide for LE edema, continues for now. No ascites on US -no evidence of HE today -Follow-up in 6 months with ultrasound and labs prior -would be due for surveillance colonoscopy in 2028 if within goals of care 40 minutes spent in chart review, [id number] time and coordination of care with the patient today. Ana Ho MD Gastroenterology and Hepatology 07/22/2024 11:12 AM Pager # [phone] documented in this encounter Plan of Treatment Upcoming Encounters Date Type Department Care Team (Late st Contact Info) Description 01/20/2025 9:00 AM EDT Laboratory Appointment Lab [address] [place] [address] 01/20/2025 9:30 AM EDT [place] [phone] Ana Ho MD [facility] [place] [address] 01/20/2025 11:00 AM EDT Office [place] [phone] Ana Ho MD [facility] [place] [address] 01/20/2025 12:00 PM EDT Office [place] [address] Candy Clifford MD [facility] DR [facility] [place], [place] [phone] Scheduled Orders Name Type Priority Associated Diagnoses Orde r Schedule US Abdomen Limited Hepatology Protocol Imaging Routine Hepatic cirrhosis, unspecified hepatic cirrhosis type, unspecified whether ascites present Expected: 01/19/2025, Expires: 07/21/2025 CBC (with Diff) Lab Routine Hepatic cirrhosis, unspecified hepatic cirrhosis type, unspecified whether ascites present Expected: 01/19/2025, Expires: 01/19/2026 Comprehensive metabolic panel Non-fasting Lab Routine Hepatic cirrhosis, unspecified hepatic cirrhosis type, unspecified whether ascites present Expected: 01/19/2025, Expires: 01/19/2026 Prothrombin Time Lab Routine Hepatic cirrhosis, unspecified hepatic cirrhosis type, unspecified whether ascites present Expected: 01/19/2025, Expires: 01/19/2026 documented as of this encounter Goals Goal Patient Goal Type Associated Problems Recent Progress Patient-Stated? Author movement Exercise On track(2021 11:16 AM EDT) No Pankaj Mcadams Note: Try gentle movement like chair yoga, t'ai chi and qigong. Health Branch Chief will send hand-outs. Use resistance bands. Health Branch Chief will request a set be mailed. Movement [...] opportunity to start with protein (cottage cheese, malawian yogurt, protein smoothies, chicken or chicken salad [...] and can't go back to sleep. Health Branch Chief will send some to try. Tried apps but don't really like them as I like the quiet when going to sleep. [facility] 04/23 documented as of this encounter Visit Diagnoses Diagnosis Hepatic cirrhosis, unspecified hepatic cirrhosis type, unspecified whether ascites present- Primary Diarrhea, unspecified type Portal hypertension documented in this encounter
--- OUTSIDE RECORDS SUMMARY | 2024-10-07 20:36 | XMS_ITS | Encounter Summary ---
Author Organization [facility] [place] [address] Care Team Providers Care Personnel Research Scientist Name Role Phone Justino Lucia MD Primary Care Provider [phone] Encounter Details Date Type Department Care Team (Latest Contact Info) Description 01/17/2024 9:15 AM EDT Laboratory Appointment Lab [address] [place] [phone] Hepatic cirrhosis, unspecified hepatic cirrhosis type, unspecified [...] 9:00 AM EDT Laboratory Appointment Lab [address] [place] [phone] 01/20/2025 9:30 AM EDT Appointment [place] [phone] Ana Ho MD [facility] [place] [address] 01/20/2025 11:00 AM EDT Office Visit [place] [phone] Ana Ho MD [facility] [place] [address] 01/20/2025 12:00 PM EDT Office Visit [place] [address] Candy Clifford MD [facility] DR NICHOL[facility] [address] documented as of this encounter Goals Goal Patient Goal Type Associated Problems Recent Progress Patient-Stated? Author movement Exercise On track(2021 11:16 AM EDT) No Pankaj Mcadams Note: Try gentle movement like chair yoga, t'ai chi and qigong. Health Photograph Tinter will send hand-outs. Use resistance bands. Health Photograph Tinter will request a set be mailed. Movement [...] [facility] Keep food log until you are seen by the dieititian. Record everything you eat or drink, include time eaten and any emotional changes that are significant. relaxation/sleep Lifestyle Pankaj Russ Note: Try some meditation/relaxation apps when I wake in the night and can't go back to sleep. Health Photograph Tinter will send some to try. Tried apps but don't really like them as I like the quiet when going to sleep. [facility] 04/23 documented as of this encounter Procedures [...] 9:10 AM EDT) Neutrophil % 58.3 % [facility] Neutrophil Absolute 2.43 1.70 - 6.10 x10(3)/[facility] Lymph % 27.1 % [facility] Lymphocytes Abs 1.1 0.9 - 3.2 x10(3)/[facility] Monocyte % 10.3 % [facility] Monocyte Abs 0.4 0.3 - 0.9 x10(3)/[facility] Eos % 3.6 % [facility] Eosinophils Abs 0.2 0.0 - 0.4 x10(3)/[facility] Basophil % 0.7 % [facility] Baso Absolute 0.0 0.0 - 0.1 x10(3)/[facility] Immature Gran % 0.00 % [facility] Comment: Immature granulocytes(IG's)percentage and absolute count will include metamyelocytes, myelocytes, and promyelocytes. Blood smears from CBCs yielding IG's will be scanned manually for concordance. If this scan disagrees with the automated IG or if promyelocytes are noted, a manual differential will be performed. Immature Gran Absolute 0.00 0.00 - 0.04 x10(3)/[facility] Blood 01/17/2024 9:10 AM EDT 01/17/2024 9:15 AM EDT Narrative Resulting Agency Comment Spec In Lab Ana Ho MD HEMATOLOGY ORDERABLE S [facility] [place] [address] * Hemogram (01/17/2024 9:10 AM EDT) White Blood Cell 4.2 4.0 - 9.5 x10(3)/[facility] Red Blood Cell 4.30 4.00 - 5.21 x10(6)/[facility] Hemoglobin 12.7 11.7 - 15.5 g/dL [facility] Hematocrit 39.0 35.7 - 45.8 % [facility] Mean Cell Volume 90.7 82.6 - 94.4 fL [facility] Mean Cell Hemoglobin 29.5 27.1 - 32.0 pg [facility] Mean Cell Hemoglobin Concentration 32.6 31.7 - 35.0 g/dL [facility] Platelet 204 145 - 357 x10(3)/[facility] RDW Standard Deviation 45.5 37.0 - 46.0 [facility] RDW coefficient of variation 13.7 11.5 - 14.1 % [facility] Mean Platelet Volume 9.5 7.6 - 12.9 [facility] NRBC% auto 0.0 % [facility] NRBC Absolute 0.000 0.000 - 0.000 x10(3)/[facility] Blood 01/17/2024 9:10 AM EDT 01/17/2024 9:15 AM EDT Narrative Resulting Agency Comment Spec In Lab Ana Ho MD HEMATOLOGY ORDERABLE S Performing Organization Address [facility] Co de Phone Number [facility] [place] [address] * (ABNORMAL) Prothrombin Time (01/17/2024 9:10 AM EDT) Prothrombin Time 13.4(H) 9.4 - 12.5 sec [facility] [...] MD HEMATOLOGY ORDERABLE S Performing Organization Address City/[facility]/ZIP Co de Phone Number [facility] [place] [address] * Comprehensive metabolic panel (non-fasting) (01/17/2024 9:10 AM EDT) Glucose 92 65 - 199 mg/dL [facility] Comment:Diabetes: >=200 mg/d L plus symptoms Blood Urea Nitrogen 11 8 - 18 mg/dL [facility] Creatinine 0.72 0.70 - 1.20 mg/dL [facility] Sodium 144 135 - 145 mmol/L [facility] Potassium 4.2 3.5 - 5.0 mmol/L [facility] Comment: Please note: ??Patients with WBC >100,000 may have falsely elevated Potassium levels. ??For accurate Potassium quantification in these patients send serum separator tube (gold top) for subsequent determinations. ??Contact the Clinical Chemistry Laboratory if there are any questions. Chloride 106 98 - 107 mmol/L [facility] Carbon Dioxide 29 22 - 31 mmol/L [facility] Anion Gap 9 5 - 15 mmol/L [facility] Calcium 8.8 8.5 - 10.5 mg/dL [facility] Protein, Total 6.7 6.1 - 8.0 g/dL [facility] Albumin 3.7 3.2 - 5.2 g/dL [facility] Aspartate Aminotransferase 23 0 - 30 unit/L [facility] Alanine Aminotransferase 14 0 - 30 unit/L [facility] Alkaline Phosphatase 84 35 - 105 unit/L [facility] Bilirubin, Total 1.1 0.2 - 1.3 mg/dL [facility] Est Glomerular Filtration Rate 89 >=60 mL/min/1. 73 m?? [facility] [...] In Lab Ana Ho MD [place] [address] documented in this encounter Visit Diagnoses Diagnosis Hepatic cirrhosis, unspecified hepatic cirrhosis type, unspecified whether ascites present documented in this encounter Care Teams Personnel Research Scientist Relationship Specialty Start Date End Date Justino Lucia MD PCP - General Family Medicine 10/04/21 07/21/24 documented as of this encounter
--- OUTSIDE RECORDS SUMMARY | 2024-10-07 20:36 | XMS_ITS | Encounter Summary ---
Author Organization [facility] Address [facility] [place] [address] Care Team Providers Care Forestry Fire Aide Name Role Phone Justino Lucia MD Primary Care Provider Encounter Details Date Type Department Care Team (Late st Contact Info) Description 01/13/2024 Notes Only Care Management [facility] [place] [phone] Priscilla Gonzalez Social History Tobacco Use Types [...] Supply Shipping Timeframe: 10-14 Business Days Ships To:[facility] documented in this encounter Plan of Treatment Upcoming Encounters Date Type Department Care Team (Late st Contact Info) Description 01/20/2025 9:00 AM EDT Laboratory Appointment Lab [address] [place] [address] 01/20/2025 9:30 AM EDT [place] [phone] Ana Ho MD [facility] [place] [address] 01/20/2025 11:00 AM EDT Office [place] [phone] Ana Ho MD [facility] [place] [address] 01/20/2025 12:00 PM EDT Office [place] [address] Candy Clifford MD [facility] DR [place] [address] documented as of this encounter Goals Goal Patient Goal Type Associated Problems Recent Progress Patient-Stated? Author movement Exercise On track(2021 11:16 AM EDT) No Pankaj Mcadams Note: Try gentle movement like chair yoga, t'ai chi and qigong. Health Maintenance Of Way Foreman will send hand-outs. Use resistance bands. Health Maintenance Of Way Foreman will request a set be mailed. [...] opportunity to start with protein (cottage cheese, setswana yogurt, protein smoothies, chicken or chicken salad [...] and can't go back to sleep. Health Maintenance Of Way Foreman will send some to try. Tried apps but don't really like them as I like the quiet when going to sleep. [facility] 04/23 documented as of this encounter Visit Diagnoses Not on filedocumented in this encounter Care Teams Forestry Fire Aide Relationship Specialty Start Date End Date Justino Lucia MD PCP - General Family Medicine 10/04/21 07/21/24 documented as of this encounter
--- OUTSIDE RECORDS SUMMARY | 2024-10-07 20:36 | XMS_ITS | Encounter Summary ---
Author Organization [facility] [place] [address] Care Team Providers Care Baggage Inspector Name Role Phone Horace Singer Primary Care Provider + Reason for Visit * Reason Comments Medication Refill Encounter Details Date Type Department Care Team (Late st Contact Info) Description 10/03/2024 Refill [place] [address] Ana Ho MD [facility] [place] [address] Social History Tobacco Use Types Packs/Day Years [...] 9:00 AM EDT Laboratory Appointment Lab [address] [place] [address] 01/20/2025 9:30 AM EDT [place] [address] Ana Ho MD [facility] GASTROENTEROLOGY [place], [place] [phone] 01/20/2025 11:00 AM EDT Office [place] [phone] Ana Ho MD [facility] [place] [address] 01/20/2025 12:00 PM EDT Office [place] [address] Candy Clifford MD [facility] DR [facility] [address] documented as of this encounter Goals Goal Patient Goal Type Associated Problems Recent Progress Patient-Stated? Author movement Exercise On track(2021 11:16 AM EDT) No Pankaj Mcadams Note: Try gentle movement like chair yoga, t'ai chi and qigong. Health Head Cleaning Porter will send hand-outs. Use resistance bands. Health Head Cleaning Porter will request a set be mailed. Movement [...] opportunity to start with protein (cottage cheese, frisian yogurt, protein smoothies, chicken or chicken salad [...] for [facility] Keep food log until you are seen by the dieititian. Record everything you eat or drink, include time eaten and any emotional changes that are significant. relaxation/sleep Lifestyle No Pankaj Mcadams Note: Try some meditation/relaxation apps when I wake in the night and can't go back to sleep. Health Head Cleaning Porter will send some to try. Tried apps but don't really like them as I like the quiet when going to sleep. [facility] 04/23 documented as of this encounter Visit Diagnoses Not on filedocumented in this encounter Care Teams Baggage Inspector Relationship Specialty Start Date End Date Horace Singer [place] [address] [place] [address] PCP - General Internal Medicine 08/03/24 documented as of this encounter
--- OUTSIDE RECORDS SUMMARY | 2024-10-07 20:36 | XMS_ITS | Encounter Summary ---
Author Organization [facility] [place] [address] Care Team Providers Care Driver'S License Reviewing Officer Name Role Phone Justino Lucia MD Primary Care Provider [phone] Encounter Details Date Type Department Care Team (Late st Contact Info) Description 01/17/2024 11:00 AM EDT Office [place] [phone] Ana Ho MD [facility] [place] [address] Hepatic cirrhosis, unspecified hepatic cirrhosis type, unspecified [...] Patient: Sherron Richter Sex: female : 1950 PCP: Justino Lucia MD LIVER HISTORY Lives with son and grandchildren Cirrhosis, 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 Sherron Richter is 73 y.o. with a history [...] at home with son. 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 ASSESSMENT & PLAN: Sherron Richter is a 73 y.o. 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 Ana Ho MD Gastroenterology and Hepatology 01/13/2024 2:12 PM Pager # [phone] documented in this encounter Plan of Treatment Upcoming Encounters Date Type Department Care Team (Late st Contact Info) Description 01/20/2025 9:00 AM EDT Laboratory Appointment Lab [address] [place] [phone] 01/20/2025 9:30 AM EDT [place]ointment [place] [phone] Ana Ho MD [facility] [place] [address] 01/20/2025 11:00 AM EDT Office [place] [address] Ana Ho MD [facility] GASTROENTEROLOGY [place], [place] [id number] 01/20/2025 12:00 PM EDT Office [place] [address] Candy Clifford MD [facility] [address] [place] [address] documented as of this encounter Goals Goal Patient Goal Type Associated Problems Recent Progress Patient-Stated? Author movement Exercise On track(2021 11:16 AM EDT) No Pankaj Mcadams Note: Try gentle movement like chair yoga, t'ai chi and qigong. [employer] will send hand-outs. Use resistance bands. [employer] will request a set be mailed. Movement [...] opportunity to start with protein (cottage cheese, nauruan yogurt, protein smoothies, chicken or chicken salad [...] and can't go back to sleep. [employer] will send some to try. Tried apps but don't really like them as I like the quiet when going to sleep. [facility] 04/23 documented as of this encounter Results * (ABNORMAL) Prothrombin Time (07/22/2024 9:38 AM EST) Pathologist [facility] [place] Prothrombin Time 13.0(H) 9.4 - 12.5 sec 07/22/2024 10:17 AM EST [facility] International Normalization Ratio 1.1 <=4.9 07/22/2024 10:17 AM EST [facility] Comment: An INR < 2.0 indicates adequate procoagulant activity for hemostasis in most patients without underlying bleeding disorders, though the INR may not adequately reflect hemostatic capacity in patients with liver disease and synthetic impairment. The recommended target INR range for therapeutic anticoagulation is 2.0 - 3.0 for most applications, though lower and higher ranges may be appropriate depending on clinical circumstances. Blood VENOUS BLOOD SPECIMEN / Unknown Venipuncture / Unknown 07/22/2024 9:38 AM EST 07/22/2024 9:38 AM EST Ana Ho MD HEMATOLOGY ORDERABLE S [facility] [place] [address] * (ABNORMAL) CBC (with Diff) (07/22/2024 9:38 AM EST) [facility] White Blood Cell 5.05 4.00 - 9.50 x10(3)/mc L 07/22/2024 10:03 AM [facility] Red Blood Cell 4.51 4.00 - 5.21 x10(6)/mc L 07/22/2024 10:03 AM [facility] Hemoglobin 13.8 11.7 - 15.5 g/dL 07/22/2024 10:03 AM [facility] Hematocrit 41.3 35.7 - 45.8 % 07/22/2024 10:03 AM [facility] Mean Cell Volume 91.6 82.6 - 94.4 fL 07/22/2024 10:03 AM [facility] Mean Cell Hemoglobin 30.6 27.1 - 32.0 pg 07/22/2024 10:03 AM [facility] Mean Cell Hemoglobin Concentration 33.4 31.7 - 35.0 g/dL 07/22/2024 10:03 AM [facility] Platelet 217 145 - 357 x10(3)/mc L 07/22/2024 10:03 AM [facility] Mean Platelet Volume 9.9 7.6 - 12.9 fL 07/22/2024 10:03 AM [facility] RDW Standard Deviation 46.6(H) 37.0 - 46.0 fL 07/22/2024 10:03 AM [facility] RDW coefficient of variation 13.7 11.5 - 14.1 % 07/22/2024 10:03 AM [facility] NRBC% auto 0.0 % 07/22/2024 10:03 AM [facility] NRBC Absolute <0.01 <0.01 x10(3)/mc L 07/22/2024 10:03 AM [facility] Neutrophil % 59.2 % 07/22/2024 10:03 AM [facility] Neutrophil Absolute (ANC) - Automated 2.99 1.70 - 6.10 x10(3)/mc L 07/22/2024 10:03 AM [facility] Lymph % 28.5 % 07/22/2024 10:03 AM [facility] Lymph Absolute 1.44 0.90 - 3.20 x10(3)/mc L 07/22/2024 10:03 AM [facility] Monocyte % 8.7 % 07/22/2024 10:03 AM [facility] Monocyte Absolute 0.44 0.30 - 0.90 x10(3)/mc L 07/22/2024 10:03 AM [facility] Eos % 3.0 % 07/22/2024 10:03 AM [facility] Eos Absolute 0.15 0.00 - 0.40 x10(3)/mc L 07/22/2024 10:03 AM [facility] Basophil % 0.4 % 07/22/2024 10:03 AM [facility] Baso Absolute <0.04 0.00 - 0.10 x10(3)/mc L 07/22/2024 10:03 AM [facility] Immature Gran % 0.2 % 10:03 AM [facility] Immature Gran Absolute <0.04 0.00 - 0.04 x10(3)/mc L 07/22/2024 10:03 AM [facility] Blood VENOUS BLOOD SPECIMEN / Unknown Venipuncture / Unknown 07/22/2024 9:38 AM EST 07/22/2024 9:38 AM EST Ana Ho MD HEMATOLOGY ORDERABLE S [facility] [place] [address] * (ABNORMAL) Comprehensive metabolic panel (non-fasting) (07/22/2024 9:38 AM EST) Glucose 86 65 - 99 mg/dL 07/22/2024 11:10 AM [facility] Comment: Fasting Glucose Interpretive Criteria: Normal: 65-99 mg/dL ?? Prediabetes: 100-125 mg/dL ?? Consistent with Diabetes Mellitus: > or = 126 mg/dL ?? Classification and Diagnosis of Diabetes: Standards of Care in Diabetes - 2022. Diabetes Care 2022; 46:S19. Fasting is defined as no caloric intake for at least 8 hours. Blood Urea Nitrogen 9 8 - 18 mg/dL 07/22/2024 11:10 AM [facility] Creatinine 0.67(L) 0.70 - 1.20 mg/dL 07/22/2024 11:10 AM [facility] Sodium 141 135 - 145 mMol/L 07/22/2024 11:10 AM [facility] Potassium 3.8 3.5 - 5.0 mMol/L 07/22/2024 11:10 AM [facility] Chloride 104 98 - 107 mMol/L 07/22/2024 11:10 AM [facility] Carbon Dioxide 28 22 - 31 mMol/L 07/22/2024 11:10 AM [facility] Anion Gap 9 5 - 15 mMol/L 07/22/2024 11:10 AM [facility] Calcium 9.0 8.5 - 10.5 mg/dL 07/22/2024 11:10 AM [facility] Protein, Total 6.7 6.1 - 8.0 g/dL 07/22/2024 11:10 AM [facility] Albumin 3.6 3.2 - 5.2 g/dL 07/22/2024 11:10 AM [facility] Aspartate Aminotransferase 25 <=30 unit/L 07/22/2024 11:10 AM [facility] Alanine Aminotransferase 17 0 - 30 unit/L 07/22/2024 11:10 AM [facility] Alkaline Phosphatase 70 35 - 105 unit/L 07/22/2024 11:10 AM [facility] Bilirubin, Total 1.0 <=1.3 mg/dL 07/22/2024 11:10 AM EST [facility] Est Glomerular Filtration Rate - Female 92 mL/min/1. 73 m?? 07/22/2024 11:10 AM EST [facility] Comment: This patient's estimated GFR [...] urine creatinine clearance. Assignment of CKD stage 1 - 5 for patients with an eGFR near the transition point between stages may be based on clinical assessment of muscle mass and symptoms in addition to eGFR. Link: eGFR Calculator [employer] Fasting Status Yes 07/22/2024 11:10 AM [facility] Blood VENOUS BLOOD SPECIMEN / Unknown Venipuncture / Unknown 07/22/2024 9:38 AM EST 07/22/2024 9:38 AM EST Ana Ho MD CHEMISTRY ORDERABLES Performing Organization Address City/[facility]/ZIP Co de Phone Number [facility] [place] [address] * AFP tumor marker (07/22/2024 9:38 AM EST) Alpha Fetoprotein Tumor Marker 2.5 <=8.3 ng/ml 07/22/2024 11:56 AM EST [facility] Comment:This result was gene rated using a Anthony Viridiana immunoassay. Results obtained from other methods or manufacturers cannot be used interchangeably with this method. Blood VENOUS BLOOD SPECIMEN / Unknown Venipuncture / Unknown 07/22/2024 9:38 AM EST 07/22/2024 9:38 AM EST Ana Ho MD CHEMISTRY ORDERABLES Performing Organization Address City/[facility]/ZIP Co de Phone Number [facility] [place] [address] * US Abdomen Limited Hepatology Protocol (07/22/2024 9:07 AM EST) WORKSTATION ID [id number] RAD Anatomical Region Laterality Modality Abdomen Ultrasound 07/22/2024 9:03 AM EST Impressions 07/22/2024 9:29 AM EST 1. Coarsely echogenic hepatic parenchyma with capsular nodularity consistent with cirrhosis. No focal hepatic lesion seen. 2. The main portal vein is patent with normal directional flow. 3. No ascites. 4. Status post cholecystectomy. No biliary ductal dilatation. 5. Incidental note of 4.6 cm simple right renal cyst. Electronically signed by: Julian Dailey MD, [facility] ([phone]), at 07/22/2024 9:21 AM Thank you for letting us participate in the care of this patient. If you are a health care provider and have any questions regarding this report, please contact the number above. For patients who have questions, please contact the health pet care worker that requested your imaging first. ? Julian Dailey, Staff Physician Electronically Signed Final Report ?? 07/22/2024 09:28 am Narrative 07/22/2024 9:29 AM EST Abdominal ? (Signed Final 07/22/2024 09:28 am) PATIENT INFO: ID #: ? [id number] ?: ??[birth year] (74 yrs)(F) Name: ? SHERRON M ROBER ?Visit Date: 07/22/2024 09:03 am PERFORMED BY: Attending: ?Ashlie GRACE, Julian Lemus Performed By: ? Gold RunLoretta bradford RDMS Referred By: ?ANA AIDA Location: ? [place] SERVICE(S) PROVIDED: [facility] - Hepatology Protocol - Abdominal ?[id number] Limited Survey Single Organ or Quadrant - [id number] INDICATIONS: cirrhosis, HCC screening COMPARISON: US: Hepatology 01/17/24 ------ LIVER: ------ Right Lobe Length: ?? 12.3 ?? cm Echogenicity/Echotexture: ?? Coarse parenchyma with capsular ? nodularity Portal Veins: ?Hepatopetal GALLBLADDER: Cholelithiasis: ?Surgically absent Focal Tenderness: ?Negative sonographic Rosenthal's sign BILIARY TRACT: Intrahepatic Ducts: ?? Normal Extrahepatic Ducts: ?? Normal Common Duct Size: ? 8.0 ? mm FLUID COLLECTIONS: Ascites not present on 4 quadrant evaluation. ADDITIONAL FINDINGS: Incidental finding: Simple cyst seen in the mid pole of the right kidney, measuring 4.6 x 4.0 x 3.9 cm. Procedure Note Julian Dailey MD - 07/22/2024 Abdominal (Signed Final 07/22/2024 09:28 am) PATIENT INFO: ID #: [id number] : [birth year] (74 yrs)(F) Name: SHERRON RICHTER Visit Date: 07/22/2024 09:03 am PERFORMED BY: Attending: Julian Dailey MD Performed By: Loretta Hoover RDMS Referred By: ANA HO Location: [place] [facility]ICE[facility] - Hepat[facility] Protocol - Abdominal 50108 Limited Survey Single Organ or Quadrant - [id number] INDICATIONS: cirrhosis, HCC screening COMPARISON: US: Hepatology 01/17/24 ------ LIVER: ------ Right Lobe Length: 12.3 cm Echogenicity/Echotexture: Coarse parenchyma with capsular nodularity Portal Veins: Hepatopetal GALLBLADDER: Cholelithiasis: Surgically absent Focal Tenderness: Negative sonographic Rosenthal's sign BILIARY TRACT: Intrahepatic Ducts: Normal Extrahepatic Ducts: Normal Common Duct Size: 8.0 mm FLUID COLLECTIONS: Ascites not present on 4 quadrant evaluation. ADDITIONAL FINDINGS: Incidental finding: Simple cyst seen in the mid pole of the right kidney, measuring 4.6 x 4.0 x 3.9 cm. IMPRESSION 1. Coarsely echogenic hepatic parenchyma with capsular nodularity consistent with cirrhosis. No focal hepatic lesion seen. 2. The main portal vein is patent with normal directional flow. 3. No ascites. 4. Status post cholecystectomy. No biliary ductal dilatation. 5. Incidental note of 4.6 cm simple right renal cyst. Electronically signed by: Julian Dailey MD, [facility] ([phone]), at 07/22/2024 9:21 AM Thank you for letting us participate in the care of this patient. If you are a health care provider and have any questions regarding this report, please contact the number above. For patients who have questions, please contact the health pet care worker that requested your imaging first. Julian Dailey, Staff Physician Electronically Signed Final Report 07/22/2024 09:28 am Ana Ho MD IMG US GEN ORDERABLE S documented in this encounter Visit Diagnoses Diagnosis Hepatic cirrhosis, unspecified hepatic cirrhosis type, unspecified whether ascites present- Primary NAFLD (nonalcoholic fatty liver disease) Other chronic nonalcoholic liver disease Hepatic cirrhosis, unspecified hepatic cirrhosis type, unspecified whether ascites present documented in this encounter Care Teams Driver'S License Reviewing Officer Relationship Specialty Start Date End Date Justino Lucia MD PCP - General Family Medicine 10/04/21 07/21/24 documented as of this encounter
--- OUTSIDE RECORDS SUMMARY | 2024-10-07 20:36 | XMS_ITS | Encounter Summary ---
Author Organization [facility] Address [facility] [place] [address] Care Team Providers Care Woodworking Craftsman Name Role Phone Horace Singer Primary Care Provider + Encounter Details Date Type Department Care Team (Late st Contact Info) Description 09/15/2024 10:00 AM EST TH Visit (TeleHealth) [place] [address] Candy Clifford MD [facility] [address] Class 3 severe obesity with serious comorbidity and body mass index (BMI) of 45.0 to 49.9 in adult, unspecified obesity type (Primary Dx); NAFLD (nonalcoholic fatty liver disease); Hyperlipidemia, unspecified hyperlipidemia type; Prediabetes; Insulin resistance; Hypertension, unspecified type; Hepatic cirrhosis, unspecified hepatic cirrhosis type, unspecified [...] Progress Notes * Candy Clifford MD - 09/15/2024 10:00 AM ESTSummary: 12th visit with Patient provided verbal consent prior to initiation of this telemedicine encounter and expressed understanding that the telemedicine visit may be billed similar to a clinic visit, pt was seen while via [x] Video [] phone For this video visit, pt is located at:[facility] Patient Name: Telma Richter Date of : 1950 Age: 74 y.o. TRENTON Reeves Thank you for referring Telma [facility]ter to the [facility]. I saw her for a follow-upvisit today, 09/15/24. Please see changes to care as documented in the assessment and plan. CHIEF COMPLAINT: F/u for treatment of WHO Class 3 / EOSS Stage 2 Obesity defined by initial BMI and comorbidities:HTN, Hyperlipidemia and Vitamin D deficiency. GERD. OA. This is Visit #12 [facility] visit for this 74 y.o. patient. Weight gain due to: Unclear - sits at home; notes gaining weight when she moved here from [place] to take care of her dad about [...] 265 lbs (-23 lbs, - 70 lbs) 09/15/2024, about the same [facility] Team: Lacey Martino RD and Pankaj Mcadams, [employer] HPI Had to switch insurances - [facility] and then [facility]. Was expected to pay deductible of $420 then copay - and did not have money. That's starting Oct 03. Have all meds except one for the bladder. Getting bills from too. EGD not fully covered! EGD showed grade 1 varices, likely bleeding and polyp. Pending cataract surgery too, will owe $365 on that. Going for preop. Got hearing aids too. $239. [email or web address] sells them. A little loud. Gained some water weight, PCP increased lasix to 20 mg. Went off Ozempic for 2 weeks - EGD rescheduled. PILLARS Stress - lots of doctors appts. Everything has been good. 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 Shift 11 AM - 7 PM/9 PM. Daughter still in the house, she cooks, I dont like what she cooks, I dont eat and then eat junk at work. Sleep - I am sleeping a little better than I was. Movement - doing well Nutrition - I am going to work very hard on eating junk food. Started eating eggs again. I dont have any taste for anything, no cravings. And the stuff I usually eat doesn't taste good anymore. Drinking water, an occasional soda. ICE drinks. AOM: Currently taking: semaglutide 2 mg AOM [...] VISIT Liver Fibrosis Score (Fib 4) was 2.04 at 09/15/2024 10:09 AM Risk of Fibrosis Low Intermediate High [...] []Surgery []Culinary []ACT []Monthly Lifestyle Classes Discussion 09/15/24: Current pillars reviewed. Continues to do relatively well on ozempic 2 mg, weight is stable. Reviewed ways to eat healthy at work. Routine f/u with me, coordinate with GI visit in December. 01/18/2022 4:00 PM [facility] PATHWAY - ADULT Obesity Medicine Activate Goals movement Try gentle movement like chair yoga, t'ai chi and qigong. [employer] will send hand-outs. Use resistance bands. [employer] will request a set be mailed. Movement [...] an opportunity to start with protein (cottage cheese,welsh yogurt, protein smoothies, chicken or chicken salad [...] for sample meal ideas in the USPS [facility] Keep food log until you are seen by the dieititian. Record everything you eat or drink, include time eaten and any emotional changes that are significant. relaxation/sleep Try some meditation/relaxation apps when I wake in the night and can't go back to sleep. [employer] will send some to try. Tried apps but don't really like them as I like the quiet when going to sleep. [facility] 04/23 VITAL SIGNS: There were no vitals filed for this visit. There is no height or weight on file to calculate BMI. PHYSICAL EXAM: Gen: Alert and appropriate, NAD. LABS: Lab Results Component Value Date WBC 5.05 07/22/2024 WBC 4.2 01/17/2024 RBC 4.51 07/22/2024 RBC 4.30 01/17/2024 HGB 13.8 07/22/2024 HGB 12.7 01/17/2024 HCT 41.3 07/22/2024 HCT 39.0 01/17/2024 MCV 91.6 07/22/2024 MCV 90.7 01/17/2024 MCH 30.6 07/22/2024 MCH 29.5 01/17/2024 MCHC 33.4 07/22/2024 MCHC 32.6 01/17/2024 PLATELET 217 07/22/2024 PLATELET 204 01/17/2024 RDWCV 13.7 07/22/2024 RDWCV 13.7 01/17/2024 Lab Results Component Value Date NA 141 07/22/2024 NA 144 01/17/2024 K 3.8 07/22/2024 K 4.2 01/17/2024 CL 104 07/22/2024 CL 106 01/17/2024 CO2 28 07/22/2024 CO2 29 01/17/2024 BUN 9 07/22/2024 BUN 11 01/17/2024 CREATININE 0.67 (L) 07/22/2024 CREATININE 0.72 01/17/2024 GLUCOSE 86 07/22/2024 GLUCOSE 92 01/17/2024 CALCIUM 9.0 07/22/2024 CALCIUM 8.8 01/17/2024 ESTGFR 92 07/22/2024 ESTGFR 89 01/17/2024 Lab Results Component Value Date ALT 17 07/22/2024 AST 25 07/22/2024 ALKPHOS 70 07/22/2024 BILITOT 1.0 07/22/2024 BILIDIR 0.3 02/07/2016 ALBUMIN 3.6 07/22/2024 PROT 6.7 07/22/2024 Lab Results Component Value Date CHLPL 126 07/22/2024 CHLPL 118 01/01/2023 HDL 47 07/22/2024 HDL 45 01/01/2023 CHOLHDL 2.6 01/01/2023 TRIG 85 07/22/2024 TRIG 75 01/01/2023 LDLCHOL 62 07/22/2024 LDLCHOL 58 01/01/2023 Lab Results Component Value Date HA1C 5.0 07/22/2024 HA1C 4.8 01/01/2023 HA1C 5.5 01/25/2022 Lab Results Component Value Date TSH 0.97 07/22/2024 Lab Results Component Value Date LABINSU 25.2 (H) 01/01/2023 No results found for: GLUCFASTING Lab Results Component Value Date [id number] 07/22/2024 Vitamin D Total 25 OH Date Value Status 07/22/2024 38 ng/ml Final 01/01/2023 43 ng/mL Final No results found for: URICACID ASSESSMENT [...] None AOM management today: Ozempic 2 mg There are no diagnoses linked to this encounter. PLEASE DX LIST No orders of the defined types were placed in this encounter. OZEMPIC 2 MG REORDERED F/U January 20, 2025 Todays charge based on management of 1+ chronic diseases and medication management. min chart review min [id number] visit Min documentation time I spent time above today reviewing labs, writing prescriptions, documenting visit, examining the patient, arranging other specialty care, counseling in diet and/or exercise and discussion of treatment options in the care of obesity, completed on the date of service. documented in this encounter Plan of Treatment Upcoming Encounters Date Type Department Care Team (Late st Contact Info) Description 01/20/2025 9:00 AM EDT Laboratory Appointment Lab [address] [place] [address] 01/20/2025 9:30 AM EDT [place] [phone] Ana Ho MD [facility] [place] [address] 01/20/2025 11:00 AM EDT Office [place] [phone] Ana Ho MD [facility] [place] [address] 01/20/2025 12:00 PM EDT Office Visit [facility] [place] [address] Candy Clifford MD [facility] DR [facility] [address] documented as of this encounter Goals Goal Patient Goal Type Associated Problems Recent Progress Patient-Stated? Author movement Exercise On track(2021 11:16 AM EDT) No Pankaj Mcadams Note: Try gentle movement like chair yoga, t'ai chi and qigong. [employer] will send hand-outs. Use resistance bands. [employer] will request a set be mailed. Movement [...] opportunity to start with protein (cottage cheese, welsh yogurt, protein smoothies, chicken or chicken salad [...] for sample meal ideas in the USPS [facility] Keep food log until you are seen by the dieititian. Record everything you eat or drink, include time eaten and any emotional changes that are significant. relaxation/sleep Lifestyle No Pankaj Mcadams Note: Try some meditation/relaxation apps when I wake in the night and can't go back to sleep. [employer] will send some to try. Tried apps [...] resistance Dysmetabolic Syndrome X Hypertension, unspecified type Hepatic cirrhosis, unspecified hepatic cirrhosis type, unspecified whether ascites present documented in this encounter Care Teams Woodworking Craftsman Relationship Specialty Start Date End Date Horace [place] [place] [address] PCP - General Internal Medicine 08/03/24 documented as of this encounter
--- OUTSIDE RECORDS SUMMARY | 2024-10-07 20:36 | XMS_ITS | Encounter Summary ---
Author Organization [facility] Address [facility] [place] [address] Care Team Providers Care Quality Improvement Consultant Name Role Phone Unavailable Primary Care Provider Unavailabl e Encounter Details Date Type Department Care Team (Latest Contact Info) Description 07/22/2024 8:49 AM EST - 07/22/2024 11:59 PM [facility] Hospital En[place] [phone] Ilya Ho MD [facility] [address] Hepatic cirrhosis, unspecified hepatic cirrhosis type, unspecified [...] Sig Dispensed Refills Start Date End Date psyllium husk (psyllium)Indication s:Diarrhea, unspecified type Take 1 packet by mouth daily. 90 packet 3 07/22/2024 acetaminophen (Tylenol) 500 mg tablet Take 1,000 [...] for Wheezing. Use with spacer semaglutide (Ozempic) 2 mg/dose (8 mg/3 mL) Pen Injector Inject 2 mg subcutaneously once a week. 12 mL 3 05/20/2024 09/15/2024 loperamide (Imodium A-D) 2 mg capsule take 1 capsule by mouth four times a day if needed for diarrhea MAX OF 16 MILLIGRAMS IN 24 HOURS 90 capsule 10/29/2023 08/28/2024 documented as of this encounter Plan of Treatment Upcoming Encounters Date Type Department Care Team (Late st Contact Info) Description 01/20/2025 9:00 AM EDT Laboratory Appointment Lab [address] [phone] 01/20/2025 9:30 AM EDT Appointment [place] [phone] Ilya Ho MD [facility] [address] 01/20/2025 11:00 AM EDT Office [place] [phone] Ilya Ho MD [facility] [address] 01/20/2025 12:00 PM EDT Office [place] [phone] Candy Clifford MD [facility] DR [facility]ICH[facility] [place] [address] documented as of this encounter Goals Goal Patient Goal Type Associated Problems Recent Progress Patient-Stated? Author movement Exercise On track(2021 11:16 AM EDT) No Pankaj Mcadams Note: Try gentle movement like chair yoga, t'ai chi and qigong. [employer] will send hand-outs. Use resistance bands. [employer] will request a set be mailed. Movement [...] for sample meal [facility] Keep food log until you are seen by the dieititian. Record everything you eat or drink, include time eaten and any emotional changes that are significant. relaxation/sleep Lifestyle No Pankaj Mcadams Note: Try some meditation/relaxation apps when I wake in the night and can't go back to sleep. [employer] will send some to try. Tried apps but don't really like them as I like the quiet when going to sleep. [facility] 04/23 documented as of this encounter Procedures Procedure Name Priority Date/Time Associated Diagnosis Comments US ABDOMEN LIMITED HEPATOLOGY PROTOCOL Routine 07/22/2024 9:07 AM EST Hepatic cirrhosis, unspecified hepatic cirrhosis type, unspecified whether ascites present documented in this encounter Results * US Abdomen Limited Hepatology Protocol (07/22/2024 9:07 AM EST) WORKSTATION ID [id number] RAD Anatomical Region Laterality Modality Abdomen Ultrasound [...] cyst. Electronically signed by: Julian Dailey MD, [facility] ([phone]), at 07/22/2024 9:21 AM Thank you for letting us participate in the care of this patient. If you are a health care provider and have any questions regarding this report, please contact the number above. For patients who have questions, please contact the health auto care center manager that requested your imaging first. ? Julian Dailey, Staff Physician Electronically Signed Final Report ?? 07/22/2024 09:28 am Narrative 07/22/2024 9:29 AM EST Abdominal ? (Signed Final 07/22/2024 09:28 am) PATIENT INFO: ID #: ? [id number] ?: ??[birth year] (74 yrs)(F) Name: ? TELMA RICHTER ?Visit Date: 07/22/2024 09:03 am PERFORMED BY: Attending: ?Ashlie GRACE, Julian Lemus Performed By: ? Loretta Hoover RDMS Referred By: ?ILYAGEGE HO Location: ? [place] SERVICE(S) PROVIDED: [facility] - Hepatology Protocol - Abdominal ?32107 Limited Survey Single Organ or Quadrant - [id number] INDICATIONS: cirrhosis, HCC screening COMPARISON: US: Hepatology [...] 07/22/2024 09:28 am) PATIENT INFO: ID #: [id number] : [birth year] (74 yrs)(F) Name: TELMA RICHTER Visit Date: 07/22/2024 09:03 am PERFORMED BY: Attending: Julian Dailey MD Performed By: Loretta Hoover RDMS Referred By: ILYA HO Location: [place] [facility] - [facility] Protocol - Abdominal 24319 Limited Survey Single Organ or Quadrant - [id number] INDICATIONS: cirrhosis, HCC screening COMPARISON: US: Hepatology [...] cyst. Electronically signed by: Julian Dailey MD, [facility] ([phone]), at 07/22/2024 9:21 AM Thank you for letting us participate in the care of this patient. If you are a health care provider and have any questions regarding this report, please contact the number above. For patients who have questions, please contact the health auto care center manager that requested your imaging first. Julian Dailey, Staff Physician Electronically Signed Final Report 07/22/2024 09:28 am Ilya Ho MD IMG US GEN ORDERABLE S documented in this encounter Visit Diagnoses Diagnosis Hepatic cirrhosis, unspecified hepatic cirrhosis type, unspecified whether ascites present documented in this encounter
--- OUTSIDE RECORDS SUMMARY | 2024-10-07 20:36 | XMS_ITS | Encounter Summary ---
Author Organization [facility] Address [facility] [place] [address] Care Team Providers Care Pin Feather Machine Operator Name Role Phone Justino Lucia MD Primary Care Provider [phone] Encounter Details Date Type Department Care Team (Late st Contact Info) Description 05/22/2024 8:30 AM EDT [place] [id number] Candy Clifford MD [facility] DR NICHOL[facility] [place] [address] Class 3 severe obesity with serious comorbidity [...] 8:30 AM EDTSummary: 11th visit with MD [facility] Patient Name: Telma [...] deficiency. GERD. OA. This is Visit #11 [facility] visit for this 74 y.o. patient. Weight gain due to: Unclear - sits at home; notes gaining weight when she moved here from [place] to take care of her dad about [...] 265 lbs (-23 lbs, - 70 lbs) [facility] Team: Lacey Martino RD and Pankaj Mcadams, Health Retort Engineer HPI Doing much better, feeling much better. [...] through [place]. Cont f/u. 01/18/2022 4:00 PM [facility] PATHWAY - ADULT Obesity Medicine Activate Goals movement Try gentle movement like chair yoga, t'ai chi and qigong. Health Retort Engineer will send hand-outs. Use resistance bands. Health Retort Engineer will request a set be mailed. [...] an opportunity to start with protein (cottage cheese,tunisian yogurt, protein smoothies, chicken or chicken salad [...] and can't go back to sleep. Health Retort Engineer will send some to try. Tried apps but don't really like them as I like the quiet when going to sleep. [facility] 04/23 VITAL SIGNS: Vitals: 05/22/24 0843 BP: [...] for: GLUCFASTING Lab Results Component Value Date [id number] 01/01/2023 Vitamin D Total 25 OH [...] me. 1 min chart review 25 min [id number] Visit time 5 min Documentation time I [...] 9:00 AM EDT Laboratory Appointment Lab [address] [place] [address] 01/20/2025 9:30 AM EDT [place] [phone] Ana Ho MD [facility] [address] 01/20/2025 11:00 AM EDT Office [place] [address] Ana Ho MD [facility] [place] [address] 01/20/2025 12:00 PM EDT Office [place] [address] Candy Clifford MD [facility] DR NICHOL[facility] [place] [address] documented as of this encounter Goals Goal Patient Goal Type Associated Problems Recent Progress Patient-Stated? Author movement Exercise On track(2021 11:16 AM EDT) No Pankaj Mcadams Note: Try gentle movement like chair yoga, t'ai chi and qigong. Health Retort Engineer will send hand-outs. Use resistance bands. Health Retort Engineer will request a set be mailed. [...] for sample meal ideas in the [facility] Keep food log until you are seen by the dieititian. Record everything you eat or drink, include time eaten and any emotional changes that are significant. relaxation/sleep Lifestyle No Pankaj Mcadams Note: Try some meditation/relaxation apps when I wake in the night and can't go back to sleep. Health Retort Engineer will send some to try. Tried apps but don't really like them as I like the quiet when going to sleep. [facility] 04/23 documented as of this encounter Results * Ferritin (07/22/2024 9:38 AM EST) Ferritin 57 11 - 328 ng/ml 07/22/2024 11:12 AM EST [facility] Blood VENOUS BLOOD SPECIMEN / Unknown Venipuncture / Unknown 07/22/2024 9:38 AM EST 07/22/2024 9:38 AM EST Candy Clifford MD CHEMISTRY ZACK NELSON [facility] [place] [address] * TSH (07/22/2024 9:38 AM EST) Thyroid Stimulating Hormone 0.97 0.27 - 4.20 mcIU/mL 07/22/2024 11:10 AM EST [facility] Comment: Reference Interval (mcIU/mL): ?? Females: ? First Trimester: 0.23-3.88 ? Second Trimester: 0.22-3.90 ? Third Trimester: 0.44-4.66 Blood VENOUS BLOOD SPECIMEN / Unknown Venipuncture / Unknown 07/22/2024 9:38 AM EST 07/22/2024 9:38 AM EST Candy Clifford MD CHEMISTRY ZACK NELSON Performing Organization Address City/[facility]/ZIP Co de Phone Number [facility] [place] [address] * Vitamin D, 25-Hydroxy (07/22/2024 9:38 AM EST) Vitamin D Total 25 OH 38 21 - 100 ng/ml 07/22/2024 11:56 AM EST [facility] Vitamin D Total 25 OH Interp Sufficient 07/22/2024 11:56 AM EST [facility] Blood VENOUS BLOOD SPECIMEN / Unknown Venipuncture / Unknown 07/22/2024 9:38 AM EST 07/22/2024 9:38 AM EST Candy Clifford MD CHEMISTRY ZACK NELSON Performing Organization Address City/[facility]/ZIP Co de Phone Number [facility] [place] [address] * Vitamin B12 (07/22/2024 9:38 AM EST) Vitamin B12 786 232 - 1,245 pg/mL 07/22/2024 11:56 AM EST [facility] Blood VENOUS BLOOD SPECIMEN / Unknown Venipuncture / Unknown 07/22/2024 9:38 AM EST 07/22/2024 9:38 AM EST Candy Clifford MD CHEMISTRY ZACK NELSON Performing Organization Address City/[facility]/ZIP Co de Phone Number [facility] [place] [address] * Lipid Panel (Reflex Direct LDL) (07/22/2024 9:38 AM EST) Cholesterol, Total 126 mg/dL 07/22/2024 11:10 AM EST [facility] Comment: Desirable: < 200 mg/dL Borderline High: 200 - 239 mg/dL High: > or = 240 mg/dL Triglyceride 85 mg/dL 07/22/2024 11:10 AM [facility] Comment: Normal: <150 mg/dL Borderline High: 150-199 mg/dL High: 200-499 mg/dL Very High: > or =500 mg/dL HDL Cholesterol 47 mg/dL 11:10 AM [facility] Comment:Female: High Risk: < 50 mg/dL LDL Cholesterol 62 mg/dL 11:10 AM [facility] Comment: Desirable: <100 mg/dL Above Desirable: 100-129 mg/dL Borderline High: 130-159 mg/dL High: 160-189 mg/dL Very High: > or =190 mg/dL Note: LDL calculation updated to the NIH LDL formula as of 04/05/2024 Non-HDL Cholesterol 79 mg/dL 07/22/2024 11:10 AM [facility] Comment: Desirable: <130 mg/dL Above Desirable: 130-159 mg/dL Borderline High: 160-189 mg/dL High: 190-219 mg/dL Very High: > or = 220 mg/dL Blood VENOUS BLOOD SPECIMEN / Unknown Venipuncture / Unknown 07/22/2024 9:38 AM EST 07/22/2024 9:38 AM [facility] - 07/22/2024 11:10 AM EST It is important to review the results of your lipid panel with your health care provider. You can compare your lipid results to the ranges below and whether they are in the desirable range. These ranges are only meant to be used for people without known cardiac disease, history of stroke, or peripheral vascular disease (blockages in the leg arteries or diabetes). If you have one of these conditions, your desirable LDL-C (bad cholesterol) will likely be even lower. ?? ACC/AHA Guidelines (most recently Yessi barbour al. JACC 06/05/22): * For individuals with atherosclerotic cardiovascular disease (ASCVD) or LDL >=190 mg/dL, use a high-intensity statin(40-80 mg atorvastatin or 20-40 mg rosuvastatin with goal >=50% LDL reduction) * For individuals with diabetes, age 40-75 without ASCVD, moderate-intensity statin (goal 30-49% LDL reduction); consider high intensity statin for those with increased risk. * For adults without diabetes or ASCVD, aged 40-75 with LDL 70-189 mg/dL, estimate 10 year ASCVD risk with smartphrase ??.ASCVDRISK ??or Dynamed Decisions. If 10 year risk is 7.5%-19.9% (intermediate risk), consider moderate intensity statin based on risk enhancers and patient preference. Consider coronary artery calcium test (CT)if there is concern regarding the benefit of a statin. If ten year risk is >=20%, initiate high-intensity statin. * Evaluate for secondary causes of Triglycerides >500 mg/dL or LDL >190 mg/dL. * Lifestyle modification is a critical component of ASCVD risk reduction. * If not reaching LDL goals on maximally tolerated statin, consider ezetimibe and/or a PCSK9 inhibitor: ?* Target for primary prevention: LDL<100 ?* Target for those with ASCVD or diabetes and 10-year risk >=20%: LDL<70 ?* Target for those with very high risk ASCVD: LDL<55 (Very high risk being the presence of 2 or more of: recent acute coronary syndrome, past ? myocardial infarction, ischemic stroke, symptomatic peripheral artery disease) Candy Clifford MD CHEMISTRY ZACK NELSON [facility] [place] [address] * Hemoglobin A1c (07/22/2024 9:38 AM EST) [facility] Hemoglobin A1c 5.0 4.3 - 5.6 % 07/22/2024 11:04 AM EST [facility] Comment: Per ADA guidelines, without clear symptoms of hyperglycemia or a random plasma glucose >199 mg/dL, a single abnormal A1c measurement cannot be used to diagnose diabetes mellitus. The diagnosis must be confirmed by either 1) a concurrent abnormal fasting plasma glucose or impaired response to oral glucose tolerance testing, or 2) an additional abnormal A1c, impaired fasting plasma glucose, or impaired response to oral glucose tolerance testing on a different day. A1c results obtained on patients with altered red blood cell turnover may not be advertising account representative of glycemic control. Reference Interval: 4.3 - 5.6% 5.7 - 6.4%: Consistent with prediabetes >=6.5%: Consistent with diagnosis of diabetes mellitus Estimated Average Glucose 07/22/2024 11:04 AM EST [facility] Comment:Estimated Average Gl ucose not appropriate for patients over 70 years of age. Blood VENOUS BLOOD SPECIMEN / Unknown Venipuncture / Unknown 07/22/2024 9:38 AM EST 07/22/2024 9:38 AM EST [facility] - 07/22/2024 11:04 AM EST Estimated average glucose (eAG) is calculated from the equation described in: Guy AYON, Derrick J, Trung R, et al. ??Translating the A1C assay into estimated average glucose values. ??Diabetes Care 2008:31(8):1822-2344. Additional resources are available on the ADA website (diabetes.org). Candy NELSON [facility] Organization Address City/State/ZIP Co de Phone Number [facility] [place] [address] documented in this encounter Visit Diagnoses Diagnosis Class 3 severe obesity with serious comorbidity and body mass index (BMI) of 45.0 to 49.9 in adult, unspecified obesity type- Primary NAFLD (nonalcoholic fatty liver disease) Other chronic nonalcoholic liver disease Hyperlipidemia, unspecified hyperlipidemia type Prediabetes Other abnormal glucose Insulin resistance Dysmetabolic Syndrome X Hypertension, unspecified type documented in this encounter Care Teams Pin Feather Machine Operator Relationship Specialty Start Date End Date Justino Lucia MD PCP - General Family Medicine 10/04/21 07/21/24 documented as of this encounter
--- OUTSIDE RECORDS SUMMARY | 2024-10-07 20:36 | XMS_ITS | Encounter Summary ---
Author Organization [facility] [place] [address] Care Team Providers Care Plug Grower Name Role Phone Unavailable Primary Care Provider Unavailabl e Encounter Details Date Type Department Care Team (Latest Contact Info) Description 07/22/2024 10:00 AM EST Laboratory Appointment Lab [address] [place] [address] Hepatic cirrhosis, unspecified hepatic cirrhosis type, unspecified whether ascites present; NAFLD (nonalcoholic fatty liver disease); Class 3 severe obesity with serious comorbidity and body mass index (BMI) of 45.0 to 49.9 in adult, unspecified obesity type; Hyperlipidemia, unspecified hyperlipidemia type; Prediabetes; Insulin resistance [...] 9:00 AM EDT Laboratory Appointment Lab [address] [place] [phone] 01/20/2025 9:30 AM EDT [place] [address] Ana Ho MD [facility] [place] [address] 01/20/2025 11:00 AM EDT Office [place] [address] Ana Ho MD [facility] [place] [address] 01/20/2025 12:00 PM EDT Office [place] [address] Candy Clifford MD [facility] DR NICHOL[facility] PERDOM[place] [address] documented as of this encounter Goals Goal Patient Goal Type Associated Problems Recent Progress Patient-Stated? Author movement Exercise On track(2021 11:16 AM EDT) No Pankaj Mcadams Note: Try gentle movement like chair yoga, t'ai chi and qigong. Health Tank Farm Operator will send hand-outs. Use resistance bands. Health Tank Farm Operator will request a set be mailed. [...] opportunity to start with protein (cottage cheese, prydeinig yogurt, protein smoothies, chicken or chicken salad [...] for sample meal ideas in the [employer] [facility] Keep food log until you are seen by the dieititian. Record everything you eat or drink, include time eaten and any emotional changes that are significant. relaxation/sleep Lifestyle No Pankaj Mcadams Note: Try some meditation/relaxation apps when I wake in the night and can't go back to sleep. Health Tank Farm Operator will send some to try. Tried apps but don't really like them as I like the quiet when going to sleep. [facility] 04/23 documented as of this encounter Procedures Procedure Name Priority Date/Time Associated Diagnosis Comments AFP TUMOR MARKER Routine 07/22/2024 9:38 AM EST Hepatic cirrhosis, unspecified hepatic cirrhosis type, unspecified whether ascites present VITAMIN D, 25-HYDROXY Routine 07/22/2024 9:38 AM EST Class 3 severe obesity with serious comorbidity and body mass index (BMI) of 45.0 to 49.9 in adult, unspecified obesity type PROTHROMBIN TIME Routine 07/22/2024 9:38 AM EST Hepatic cirrhosis, unspecified hepatic cirrhosis type, unspecified whether ascites present CBC (WITH DIFF) Routine 07/22/2024 9:38 AM EST Hepatic cirrhosis, unspecified hepatic cirrhosis type, unspecified whether ascites present TSH Routine 07/22/2024 9:38 AM EST Class 3 severe obesity with serious comorbidity and body mass index (BMI) of 45.0 to 49.9 in adult, unspecified obesity type HEMOGLOBIN A1C Routine 07/22/2024 9:38 AM EST Prediabetes Insulin resistance Class 3 severe obesity with serious comorbidity and body mass index (BMI) of 45.0 to 49.9 in adult, unspecified obesity type FERRITIN Routine 07/22/2024 9:38 AM EST NAFLD (nonalcoholic fatty liver disease) Class 3 severe obesity with serious comorbidity and body mass index (BMI) of 45.0 to 49.9 in adult, unspecified obesity type VITAMIN B12 Routine 07/22/2024 9:38 AM EST Class 3 severe obesity with serious comorbidity and body mass index (BMI) of 45.0 to 49.9 in adult, unspecified obesity type LIPID PANEL (REFLEX DIRECT LDL) Routine 07/22/2024 9:38 AM EST Hyperlipidemia, unspecified hyperlipidemia type Class 3 severe obesity with serious comorbidity and body mass index (BMI) of 45.0 to 49.9 in adult, unspecified obesity type COMPREHENSIVE METABOLIC PANEL Routine 07/22/2024 9:38 AM EST Hepatic cirrhosis, unspecified hepatic cirrhosis type, unspecified whether ascites present documented in this encounter Results * AFP tumor marker (07/22/2024 9:38 AM EST) [facility] Alpha Fetoprotein Tumor Marker 2.5 <=8.3 ng/ml 07/22/2024 11:56 AM EST [facility] Comment:This result was gene rated using a Anthony Viridiana immunoassay. Results obtained from other methods or manufacturers cannot be used interchangeably with this method. Blood VENOUS BLOOD SPECIMEN / Unknown Venipuncture / Unknown 07/22/2024 9:38 AM EST 07/22/2024 9:38 AM EST Ana Ho MD CHEMISTRY ORDERABLES [facility] [place] [address] * (ABNORMAL) Comprehensive metabolic panel (non-fasting) (07/22/2024 9:38 AM EST) [facility] Glucose 86 65 - 99 mg/dL 07/22/2024 11:10 AM EST [facility] Comment: Fasting Glucose Interpretive Criteria: Normal: 65-99 mg/dL ?? Prediabetes: 100-125 mg/dL ?? Consistent with Diabetes Mellitus: > or = 126 mg/dL ?? Classification and Diagnosis of Diabetes: Standards of Care in Diabetes - 2022. Diabetes Care 202; 46:S19. Fasting is defined as no caloric [...] Total 1.0 <=1.3 mg/dL 07/22/2024 11:10 AM [facility] Est Glomerular Filtration Rate - Female 92 mL/min/1. 73 m?? 07/22/2024 11:10 AM [facility] Comment: This patient's estimated [...] Ho MD CHEMISTRY ORDERABLES Performing Organization Address City/State/[facility] Co de Phone Number [facility] [place] [address] * (ABNORMAL) Prothrombin Time (07/22/2024 9:38 AM EST) Prothrombin Time 13.0(H) 9.4 - 12.5 sec 07/22/2024 10:17 AM [facility] International Normalization Ratio 1.1 <=4.9 07/22/2024 10:17 AM [facility] Comment: An INR < 2.0 indicates [...] EST Ana Ho MD HEMATOLOGY ORDERABLE S Performing Organization Address City/[facility]/ZIP Co de Phone Number [facility] [place] [address] * Hemoglobin A1c (07/22/2024 9:38 AM EST) Hemoglobin A1c 5.0 4.3 - 5.6 % 07/22/2024 11:04 AM EST [facility] Comment: Per ADA guidelines, without [...] red blood cell turnover may not be physician relations representative of glycemic control. Reference Interval: 4.3 - 5.6% 5.7 - 6.4%: Consistent with prediabetes >=6.5%: Consistent with diagnosis of diabetes mellitus Estimated Average Glucose 07/22/2024 11:04 AM EST [facility] Comment:Estimated Average Gl ucose not appropriate for patients over 70 years of age. Blood VENOUS BLOOD SPECIMEN / Unknown Venipuncture / Unknown 07/22/2024 9:38 AM EST 07/22/2024 9:38 AM EST Narrative [facility] - 07/22/2024 11:04 AM EST Estimated average glucose (eAG) is calculated from the equation described in: Guy AYON, Derrick J, Trung R, et al. ??Translating the A1C assay into estimated average glucose values. ??Diabetes Care 2008:31(8):3905-8411. Additional resources are available on the ADA website (diabetes.org). Candy Clifford MD CHEMISTRY ZACK NELSON Performing Organization Address City/[facility]/ZIP Co de Phone Number [facility] [place] [address] * Lipid Panel (Reflex Direct LDL) (07/22/2024 9:38 AM EST) [facility] Cholesterol, Total 126 mg/dL 07/22/2024 11:10 AM [facility] Comment: Desirable: < 200 mg/dL Borderline High: 200 - 239 mg/dL High: > or = 240 mg/dL Triglyceride 85 mg/dL 07/22/2024 11:10 AM [facility] Comment: Normal: <150 mg/dL Borderline High: 150-199 mg/dL High: 200-499 mg/dL Very High: > or =500 mg/dL HDL Cholesterol 47 mg/dL 11:10 AM [facility] Comment:Female: High Risk: < 50 mg/dL LDL Cholesterol 62 mg/dL 11:10 AM [facility] Comment: Desirable: <100 mg/dL Above Desirable: 100-129 mg/dL Borderline High: 130-159 mg/dL High: 160-189 mg/dL Very High: > or =190 mg/dL Note: LDL calculation updated to the NIH LDL formula as of 04/05/2024 Non-HDL Cholesterol 79 mg/dL 07/22/2024 11:10 AM [facility] Comment: Desirable: <130 mg/dL Above Desirable: 130-159 mg/dL Borderline High: 160-189 mg/dL High: 190-219 mg/dL Very High: > or = 220 mg/dL Blood VENOUS BLOOD SPECIMEN / Unknown Venipuncture / Unknown 07/22/2024 9:38 AM EST 07/22/2024 9:38 AM [facility] - 07/22/2024 11:10 AM EST It [...] lower. ?? ACC/AHA Guidelines (most recently Yessi et al. JACC 06/05/22): * For individuals with [...] disease) Candy Clifford MD CHEMISTRY ZACK NELSON [facility] [place] [address] * Vitamin B12 (07/22/2024 9:38 AM EST) [facility] Signature Vitamin B12 786 232 - 1,245 pg/mL 07/22/2024 11:56 AM EST [facility] Blood VENOUS BLOOD SPECIMEN / Unknown Venipuncture / Unknown 07/22/2024 9:38 AM EST 07/22/2024 9:38 AM EST Candy Clifford MD CHEMISTRY ZACK NELSON [facility] [place] [address] * Vitamin D, 25-Hydroxy (07/22/2024 9:38 AM EST) Vitamin D Total 25 OH 38 21 - 100 ng/ml 07/22/2024 11:56 AM EST [facility] Vitamin D Total 25 OH Interp Sufficient 07/22/2024 11:56 AM EST [facility] Blood VENOUS BLOOD SPECIMEN / Unknown Venipuncture / Unknown 07/22/2024 9:38 AM EST 07/22/2024 9:38 AM EST Candy Clifford MD CHEMISTRY ZACK NELSON Performing Organization Address City/[facility]/ZIP Co de Phone Number [facility] [place] [address] * TSH (07/22/2024 9:38 AM EST) Thyroid Stimulating Hormone 0.97 0.27 - 4.20 mcIU/mL 07/22/2024 11:10 AM EST [facility] Comment: Reference Interval (mcIU/mL): ?? Females: ? First Trimester: 0.23-3.88 ? Second Trimester: 0.22-3.90 ? Third Trimester: 0.44-4.66 Blood VENOUS BLOOD SPECIMEN / Unknown Venipuncture / Unknown 07/22/2024 9:38 AM EST 07/22/2024 9:38 AM EST Candy Clifford MD CHEMISTRY ZACK NELSON [facility] [place] [address] * Ferritin (07/22/2024 9:38 AM EST) Pathologist [facility] Ferritin 57 11 - 328 ng/ml 07/22/2024 11:12 AM [facility] Blood VENOUS BLOOD SPECIMEN / Unknown Venipuncture / Unknown 07/22/2024 9:38 AM EST 07/22/2024 9:38 AM EST Candy Clifford MD CHEMISTRY ZACK NELSON [facility] [place] [address] * (ABNORMAL) CBC (with Diff) (07/22/2024 9:38 AM EST) [facility] White Blood Cell 5.05 4.00 - 9.50 [...] Immature Gran % 0.2 % 10:03 AM EST [facility] Immature Gran Absolute <0.04 0.00 - 0.04 x10(3)/mc L 07/22/2024 10:03 AM EST [facility] Blood VENOUS BLOOD SPECIMEN / Unknown Venipuncture / Unknown 07/22/2024 9:38 AM EST 07/22/2024 9:38 AM EST Ana Ho MD HEMATOLOGY ORDERABLE S [facility] [place] [address] documented in this encounter Visit Diagnoses Diagnosis Hepatic cirrhosis, unspecified hepatic cirrhosis type, unspecified whether ascites present NAFLD (nonalcoholic fatty liver disease) Other chronic nonalcoholic liver disease Class 3 severe obesity with serious comorbidity and body mass index (BMI) of 45.0 to 49.9 in adult, unspecified obesity type Hyperlipidemia, unspecified hyperlipidemia type Prediabetes Other abnormal glucose Insulin resistance Dysmetabolic Syndrome X documented in this encounter
--- OUTSIDE RECORDS SUMMARY | 2024-10-07 20:36 | XMS_ITS | Encounter Summary ---
Author Organization [facility] Address [facility] [place] [address] Care Team Providers Care Design Maintenance Engineer Name Role Phone Justino Lucia MD Primary Care Provider [phone] Encounter Details Date Type Department Care Team (Late st Contact Info) Description 12/23/2023 Notes [place] [phone] Priscilla Gonzalez Social History Tobacco Use Types [...] the application for assistance with Ozempic to [employer]. I will follow through once themanufacturer program makes a decision. documented in this encounter Plan of Treatment Upcoming Encounters Date Type Department Care Team (Late st Contact Info) Description 01/20/2025 9:00 AM EDT Laboratory Appointment Lab [address] [place] [phone] 01/20/2025 9:30 AM EDT [place] [phone] Ana Ho MD [facility] [place] [address] 01/20/2025 11:00 AM EDT Office Visit Gastroenterology at [place] [phone] Ana Ho MD [facility] [place] [address] 01/20/2025 12:00 PM EDT Office Visit Weight Center at [place] [phone] Candy Clifford MD [facility] [place] [address] documented as of this encounter Goals Goal Patient Goal Type Associated Problems Recent Progress Patient-Stated? Author movement Exercise On track(2021 11:16 AM EDT) No Pankaj Mcadams Note: Try gentle movement like chair yoga, t'ai chi and qigong. Health Chemistry Quality Control Technician will send hand-outs. Use resistance bands. Health Chemistry Quality Control Technician will request a set be mailed. [...] opportunity to start with protein (cottage cheese, lao yogurt, protein smoothies, chicken or chicken salad [...] and can't go back to sleep. Health Chemistry Quality Control Technician will send some to try. Tried apps but don't really like them as I like the quiet when going to sleep. [facility] 04/23 documented as of this encounter Visit Diagnoses Not on filedocumented in this encounter Care Teams Design Maintenance Engineer Relationship Specialty Start Date End Date Justino Lucia MD PCP - General Family Medicine 10/04/21 07/21/24 documented as of this encounter
--- OUTSIDE RECORDS SUMMARY | 2024-10-07 20:36 | XMS_ITS | Encounter Summary ---
Author Organization [facility] Address [facility] [place] [address] Care Team Providers Care Gear Lapper Name Role Phone Justino Lucia MD Primary Care Provider [phone] Reason for Visit * Reason Onset Date Comments Medication Refill 01/07/2024 Encounter Details Date Type Department Care Team (Late st Contact Info) Description 01/07/2024 Refill [place] [address] Candy Clifford MD [facility] DR NICHOLAS [place] [address] Social History Tobacco Use Types Packs/Day Years [...] message. The Ozempic that is coming from [employer] [facility] They will reach out [...] reach out anytime. * Telephone Encounter - Irina Brush - 01/08/2024 9:21 AM EDT Patient called to see how she is going to receive her Ozempic. As pharmacy stated it would be sent to the provider. Please call to advise. [phone] documented in this encounter Plan of Treatment Upcoming Encounters Date Type Department Care Team (Late st Contact Info) Description 01/20/2025 9:00 AM EDT Laboratory Appointment Lab [address] [phone] 01/20/2025 9:30 AM EDT Appointment Ultrasound at [place] [phone] Ana Ho MD [facility] [address] 01/20/2025 11:00 AM EDT Office [place] [address] Ana Ho MD [facility] [address] 01/20/2025 12:00 PM EDT Office [place] [address] Candy Clifford MD [facility] DR NICHOLAS [place] [address] documented as of this encounter Goals Goal Patient Goal Type Associated Problems Recent Progress Patient-Stated? Author movement Exercise On track(2021 11:16 AM EDT) No Pankaj Mcadams Note: Try gentle movement like chair yoga, t'ai chi and qigong. Health Supervisor Steel Division will send hand-outs. Use resistance bands. Health Supervisor Steel Division will request a set be mailed. Movement Exercise On track(2021 11:16 AM EDT) Pankaj Russ Note: Look around town, senior center, gyms, for a class to participate in, bone builders or gentle stretching. Nutrition Lifestyle No Cnady Clifford MD Note: Nutrition Goals updated today: [...] sample meal ideas in the [employer]PS [facility] Keep food log until you are seen by the dieititian. Record everything you eat or drink, include time eaten and any emotional changes that are significant. relaxation/sleep Lifestyle No Pankaj Mcadams Note: Try some meditation/relaxation apps when I wake in the night and can't go back to sleep. Health Supervisor Steel Division will send some to try. Tried apps but don't really like them as I like the quiet when going to sleep. [facility] 04/23 documented as of this encounter Visit Diagnoses Not on filedocumented in this encounter Care Teams Gear Lapper Relationship Specialty Start Date End Date Justino Lucia MD PCP - General Family Medicine 10/04/21 07/21/24 documented as of this encounter
--- OUTSIDE RECORDS SUMMARY | 2024-10-07 20:36 | XMS_ITS | Encounter Summary ---
Author Organization [facility] [place] [address] Care Team Providers Care Supervisor Roller Shop Name Role Phone Justino Lucia MD Primary Care Provider [phone] Encounter Details Date Type Department Care Team (Late st Contact Info) Description 01/16/2024 [place] [address] Priscilla Gonzalez Social History Tobacco [...] increase form for 2mg faxed over to [employer] Patient Assistance Program. documented in this encounter Plan of Treatment Upcoming Encounters Date Type Department Care Team (Late st Contact Info) Description 01/20/2025 9:00 AM EDT Laboratory Appointment Lab [address] [place] [address] 01/20/2025 9:30 AM EDT [place] [address] Ana Ho MD [facility] [place] [address] 01/20/2025 11:00 AM EDT Office [place] [address] Ana Ho MD [facility] [place] [address] 01/20/2025 12:00 PM EDT Office [place] [address] Candy Clifford MD [facility] DR NICHOLAS PERDOM[place] [address] documented as of this encounter Goals Goal Patient Goal Type Associated Problems Recent Progress Patient-Stated? Author movement Exercise On track(2021 11:16 AM EDT) No Pankaj Mcadams Note: Try gentle movement like chair yoga, t'ai chi and qigong. Health Wireline Field Operator will send hand-outs. Use resistance bands. Health Wireline Field Operator will request a set be mailed. [...] and can't go back to sleep. Health Wireline Field Operator will send some to try. Tried apps but don't really like them as I like the quiet when going to sleep. [facility] 04/23 documented as of this encounter Visit Diagnoses Not on filedocumented in this encounter Care Teams Supervisor Roller Shop Relationship Specialty Start Date End Date Justino Lucia MD PCP - General Family Medicine 10/04/21 07/21/24 documented as of this encounter
--- OUTSIDE RECORDS SUMMARY | 2024-10-07 20:36 | XMS_ITS | Encounter Summary ---
Author Organization [facility] [place] [address] Care Team Providers Care Card Tender Name Role Phone Justino Lucia MD Primary Care Provider [phone] Encounter Details Date Type Department Care Team (Late st Contact Info) Description 12/02/2023 [place] [phone] Priscilla Gonzalez Social History Tobacco Use Types [...] 9:00 AM EDT Laboratory Appointment Lab [address] [place] [address] 01/20/2025 9:30 AM EDT Appointment Ultrasound at [place] [phone] Ana Ho MD [facility] [place] [address] 01/20/2025 11:00 AM EDT Office Visit [place] [phone] Ana Ho MD [facility] [place] [address] 01/20/2025 12:00 PM EDT Office Visit [place] [phone] Candy Clifford MD [facility] [address] [place] [address] documented as of this encounter Goals Goal Patient Goal Type Associated Problems Recent Progress Patient-Stated? Author movement Exercise On track(2021 11:16 AM EDT) No Pankaj Mcadams Note: Try gentle movement like chair yoga, t'ai chi and qigong. Health Food Science Technician will send hand-outs. Use resistance bands. Health Food Science Technician will request a set be mailed. [...] for sample meal ideas in the [employer]PS [facility] Keep food log until you are seen by the dieititian. Record everything you eat or drink, include time eaten and any emotional changes that are significant. relaxation/sleep Lifestyle Pankaj Russ Note: Try some meditation/relaxation apps when I wake in the night and can't go back to sleep. Health Food Science Technician will send some to try. Tried apps but don't really like them as I like the quiet when going to sleep. [facility] 04/23 documented as of this encounter Visit Diagnoses Not on filedocumented in this encounter Care Teams Card Tender Relationship Specialty Start Date End Date Justino Lucia MD PCP - General Family Medicine 10/04/21 07/21/24 documented as of this encounter
--- OUTSIDE RECORDS SUMMARY | 2024-10-07 20:36 | XMS_ITS | Encounter Summary ---
Author Organization [facility] Address [facility] [place] [address] Care Team Providers Care Fuel Tank Sealer And Tester Name Role Phone Justino Lucia MD Primary Care Provider [phone] Encounter Details Date Type Department Care Team ([facility] st Contact Info) Description 05/20/2024 Notes [place] [phone] Yesi Ibanez [facility] Social History Tobacco Use Types Packs/Day Years [...] this encounter Progress Notes * Yesi Ibanez [facility] - 05/20/2024 11:40 AM EDT [facility] Medication Assistance Program ([facility]) -Date Prescription(s) Received: 05/20/2024 -Date Medication(s) received: 05/19/24 -Medication(s) Received: Ozempic 2mg -Quantity received: 12ml -Frame Welder Cargo Utility Trailers: song -Status of prescription: Shipped -Date Mailed/Picked up: 05/28/2024 -Address Mailed to: [address] [place] [address], [id number] -Tracking No.: [id number] documented in this encounter Plan of Treatment Upcoming Encounters Date Type Department Care Team (Late st Contact Info) Description 01/20/2025 9:00 AM EDT Laboratory Appointment Lab [address] [place] [address] 01/20/2025 9:30 AM EDT Appointment [place] [address] Ana Ho MD [facility] [place] [address] 01/20/2025 11:00 AM EDT Office Visit [place] [address] Ana Ho MD [facility] [place] [address] 01/20/2025 12:00 PM EDT Office Visit [place] [address] Candy Clifford MD [facility] DR NICHOLAS PERDOM[place] [address] documented as of this encounter Goals Goal Patient Goal Type Associated Problems Recent Progress Patient-Stated? Author movement Exercise On track(2021 11:16 AM EDT) No Pankaj Mcadams Note: Try gentle movement like chair yoga, t'ai chi and qigong. Health Cardiovascular Lab Director will send hand-outs. Use resistance bands. Health Cardiovascular Lab Director will request a set be mailed. [...] opportunity to start with protein (cottage cheese, yakut yogurt, protein smoothies, chicken or chicken salad [...] and can't go back to sleep. Health Cardiovascular Lab Director will send some to try. Tried apps but don't really like them as I like the quiet when going to sleep. [facility] 04/23 documented as of this encounter Visit Diagnoses Not on filedocumented in this encounter Care Teams Fuel Tank Sealer And Tester Relationship Specialty Start Date End Date Justino Lucia MD PCP - General Family Medicine 10/04/21 07/21/24 documented as of this encounter
--- OUTSIDE RECORDS SUMMARY | 2024-10-07 20:36 | XMS_ITS | Encounter Summary ---
Author Organization [facility] [place] [address] Care Team Providers Care Track Repair Worker Name Role Phone Justino Lucia MD Primary Care Provider [phone] Encounter Details Date Type Department Care Team [...] 9:00 AM EDT Laboratory Appointment Lab [address] [place] [phone] 01/20/2025 9:30 AM ED[place] [address] Ana Ho MD [facility] [place] [address] 01/20/2025 11:00 AM EDT [place] [phone] Ana Ho MD [facility] [place] [address] 01/20/2025 12:00 PM EDT [place] [address] Candy Clifford MD [facility] DR NICHOLAS PERDOMO[facility] [address] documented as of this encounter Goals Goal Patient Goal Type Associated Problems Recent Progress Patient-Stated? Author movement Exercise On track(2021 11:16 AM EDT) No Pankaj Mcadams Note: Try gentle movement like chair yoga, t'ai chi and qigong. Health Wood Heel Back Liner will send hand-outs. Use resistance bands. Health Wood Heel Back Liner will request a set be mailed. Movement Exercise On track(2021 11:16 AM EDT) No Pankaj Mcadams Note: Look around town, [employer] center, gyms, for a class to participate [...] [facility] Keep food log until you are seen by the dieititian. Record everything you eat or drink, include time eaten and any emotional changes that are significant. relaxation/sleep Lifestyle No Pankaj Mcadams Note: Try some meditation/relaxation apps when I wake in the night and can't go back to sleep. Health Wood Heel Back Liner will send some to try. Tried apps but don't really like them as I like the quiet when going to sleep. [facility] 04/23 documented as of this encounter Visit Diagnoses Not on filedocumented in this encounter Care Teams Track Repair Worker Relationship Specialty Start Date End Date Justino Lucia MD PCP - General Family Medicine 10/04/21 07/21/24 documented as of this encounter
--- OUTSIDE RECORDS SUMMARY | 2024-10-07 20:36 | XMS_ITS | Clinical Summary ---
Author Organization [facility] Address [facility] [place] [address] Care Team Providers Care Software Publisher Name Role Phone Horace Singer Primary Care Provider + Allergies No known active allergies Medications Medication [...] 40 mg by mouth daily. 11/25/2021 Active acetaminophen (Tylenol) 500 mg tablet Take 1,000 mg by mouth every 6 hours as needed for Pain. 11/08/2021 Active psyllium husk (psyllium)Indicat ions:Diarrhea, unspecified type Take 1 packet by mouth daily. 90 packet 3 07/22/2024 Active semaglutide (Ozempic) 2 mg/dose (8 mg/3 mL) Pen InjectorIndicatio ns:NAFLD (nonalcoholic fatty liver disease),Prediabe maria alejandra,Insulin resistance Inject 2 mg subcutaneously once a week. 12 mL 3 09/15/2024 Active loperamide (Imodium A-D) 2 mg capsule take 1 capsule by mouth four times a day if needed for diarrhea MAX OF 16 MILLIGRAMS IN 24 HOURS 90 capsule 10/05/2024 Active Active Problems Problem Noted Date Diagnosed [...] in adult 02/18/2018 Overview (02/18/2018): - Attended [facility] January 2018 - Team meeting presentation [...] Encounters Date Type Department Care Team Description 10/03/2024 Refill [place] [address] Ana Ho MD 09/15/2024 10:00 AM EST TH Visit (TeleHealth) Weight Center at [address] Candy Clifford MD Class 3 severe obesity with serious comorbidity and body mass index (BMI) of 45.0 to 49.9 in adult, unspecified obesity type (Primary Dx); NAFLD (nonalcoholic fatty liver disease); Hyperlipidemia, unspecified hyperlipidemia type; Prediabetes; Insulin resistance; Hypertension, unspecified type; Hepatic cirrhosis, unspecified hepatic cirrhosis type, unspecified whether ascites present 08/28/2024 Refill Gastroenterology at [place] [phone] Ana Ho MD 08/04/2024 9:45 AM EST - 08/04/2024 10:15 AM EST Surgery Gastroenterology at [place] [phone] Delfina Alamo MD EGD, UPPER GI ENDOSCOPY (WRVU 2.09) 08/04/2024 9:30 AM EST Anesthesia Event Gastroenterology at [place] [phone] Mark Healy MD 08/04/2024 7:46 AM EST - 08/04/2024 11:14 AM EST Hospital Encounter Gastroenterology at [place] [phone] Delfina Alamo MD Discharge Disposition: Home 07/22/2024 11:00 AM EST Office Visit Gastroenterology at [place] [phone] Ana oH MD Hepatic cirrhosis, unspecified hepatic cirrhosis type, unspecified whether ascites present (Primary Dx); Diarrhea, unspecified type; Portal hypertension 07/22/2024 10:00 AM EST Laboratory Appointment Lab [address] [place] [phone] Hepatic cirrhosis, unspecified hepatic cirrhosis type, unspecified whether ascites present; NAFLD (nonalcoholic fatty liver disease); Class 3 severe obesity with serious comorbidity and body mass index (BMI) of 45.0 to 49.9 in adult, unspecified obesity type; Hyperlipidemia, unspecified hyperlipidemia type; Prediabetes; Insulin resistance 07/22/2024 8:49 AM EST - 07/22/2024 11:59 PM EST Hospital [place] [address] Ana Ho MD Hepatic cirrhosis, unspecified hepatic cirrhosis type, unspecified whether ascites present Discharge Disposition: Home 07/22/2024 Telephone [place] [address] Jessica Mcgowan 07/22/2024 Travel 07/21/2024 Travel 07/14/2024 Notes [place] [address] Priscilla Gonzalez from Last 3 Months Immunizations Name Administration Dates Next Due Covid-19 Monovalent (Pfizer Comirnaty purple cap) 12yrs+ ([id number]) 09/29/2021,12/07/2020,11/09/2020 Family History Medical History Relation Comments [...] Sign Reading Time Taken Comments Blood Pressure 114/60 08/04/2024 10:40 AM EST Pulse 74 08/04/2024 8:56 AM EST Temperature 36.3 ??C (97.3 ??F) 08/04/2024 8:56 AM ES T Respiratory Rate 16 08/04/2024 10:40 AM EST Oxygen Saturation 98% 08/04/2024 10:50 AM EST Inhaled Oxygen Concentration - - Weight 122.5 kg (270 lb) 08/04/2024 8:56 AM EST Height 157.5 cm (5' 2) 08/04/2024 8:56 AM EST Body Mass Index 49.38 08/04/2024 8:56 AM EST Plan of Treatment Upcoming Encounters Date Type Department Care Team (Late st Contact Info) Description 01/20/2025 9:00 AM EDT Laboratory Appointment Lab [address] [place] [address] 01/20/2025 9:30 AM EDT Appointment [place] [phone] Ana Ho MD [facility] [place] [address] 01/20/2025 11:00 AM EDT Office [place] [address] Ana Ho MD [facility] [place] [place] [address] 01/20/2025 12:00 PM EDT Office [place] [phone] Candy Clifford MD [facility] [address] [place] [address] Health Maintenance Due Date Last Done Comments CT Colonography 1950 FIT DNA 1950 FIT 1950 Sigmoidoscopy 1950 Pneumoccocal Vaccine: 50+ (1 of 2 - PCV) 1970 Tetanus/Diphtheria/Pertussis Vaccines (1 - Tdap) 1970 Breast Cancer Share Decision Needed 1991 Breast Cancer screening 1991 Zoster vaccine (1 of 2) 2001 Advance Directive 2006 RSV Vaccine (1 - Risk 60-74 years 1-dose series) 2011 Bone Density Scan 2016 Covid-19 Vaccine (4 - 2023-2 5 season) 2024 09/29/2021, 12/07/2020, 11/09/2020 Influenza (Flu) vaccine (1 o f 1 - Influenza standard series) 05/03/2024 Pre-DM monitoring (HgbA1C or FBG) 07/22/2025 07/22/2024, 07/22/2024, 01/17/2024, Additional history exists Colonoscopy 06/05/2032 06/05/2022, 06/05/2022 Colorectal Cancer Screening 06/05/2032 Sigmoidoscopy (10 year) with FIT yearly 06/05/2032 06/05/2022, 06/05/2022 Diabetes Screening (HgbA1C o r Glucose) Discontinued 07/22/2024, 07/22/2024, 01/17/2024, Additional history exists Goals Goal Patient Goal Type Associated Problems Recent Progress Patient-Stated? Author movement Exercise On track(2021 11:16 AM EDT) No Pankaj Mcadams Note: Try gentle movement like chair yoga, t'ai chi and qigong. Health Loan Service Officer will send hand-outs. Use resistance bands. Health Loan Service Officer will request a set be mailed. [...] opportunity to start with protein (cottage cheese, chadian yogurt, protein smoothies, chicken or chicken salad [...] for sample meal ideas in the [facility] Keep food log until you are seen by the dieititian. Record everything you eat or drink, include time eaten and any emotional changes that are significant. relaxation/sleep Lifestyle Pankaj Russ Note: Try some meditation/relaxation apps when I wake in the night and can't go back to sleep. Health Loan Service Officer will send some to try. Tried apps but don't really like them as I like the quiet when going to sleep. [facility] 04/23 Procedures Procedure Name Priority Date/Time Associated Diagnosis Comments Upper GI Endoscopy, Diagnostic (77774) 08/04/2024 9:30 AM EST Hepatic cirrhosis, unspecified hepatic cirrhosis type, unspecified whether ascites present UPPER GI ENDOSCOPY Routine 08/04/2024 9: 23 AM EST AFP TUMOR MARKER Routine 07/22/2024 9:38 AM EST Hepatic cirrhosis, unspecified hepatic cirrhosis type, unspecified whether ascites present COMPREHENSIVE METABOLIC PANEL Routine 07/22/2024 9:38 AM EST Hepatic cirrhosis, unspecified hepatic cirrhosis type, unspecified whether ascites present PROTHROMBIN TIME Routine 07/22/2024 9:38 AM EST Hepatic cirrhosis, unspecified hepatic cirrhosis type, unspecified whether ascites present HEMOGLOBIN A1C Routine 07/22/2024 9:38 AM EST [...] 49.9 in adult, unspecified obesity type VITAMIN D, 25-HYDROXY Routine 07/22/2024 9:38 AM EST Class 3 severe obesity with serious comorbidity and body mass index (BMI) of 45.0 to 49.9 in adult, unspecified obesity type TSH Routine 07/22/2024 9:38 AM EST Class 3 severe obesity with serious comorbidity and body mass index (BMI) of 45.0 to 49.9 in adult, unspecified obesity type FERRITIN Routine 07/22/2024 9:38 AM EST NAFLD (nonalcoholic fatty liver disease) Class 3 severe obesity with serious comorbidity and body mass index (BMI) of 45.0 to 49.9 in adult, unspecified obesity type CBC (WITH DIFF) Routine 07/22/2024 9:38 AM EST Hepatic cirrhosis, unspecified hepatic cirrhosis type, unspecified whether ascites present US ABDOMEN LIMITED HEPATOLOGY PROTOCOL Routine 07/22/2024 9:07 AM EST Hepatic cirrhosis, unspecified hepatic cirrhosis type, unspecified whether ascites present COLONOSCOPY Routine 06/05/2022 10:38 AM EDT from Last 3 Months or Most Recently Relevant to Health Maintenance Results * UPPER GI ENDOSCOPY (08/04/2024 9:23 AM EST) UPPER GI ENDOSCOPY [facility] Endoscopy Procedure Date: 08/04/2024 9:23 AM ? Patient Name: Sherron Richter ? Date of : 1950 ? Age: 74 ? Order #: [id number] ? Instrument Name: [id number] ? Procedure: ? Upper GI endoscopy Indications: ? Cirrhosis rule out esophageal ? varices Providers: ? Delfina Alamo, Jorge Lockett, ? Luisa Lincoln Referring MD: ? Medicines: ? Monitored Anesthesia Care Complications: ? No immediate complications. ? Estimated blood loss: Minimal. Procedure: ? Pre-Anesthesia Assessment: ? - Immediately prior to ? administration of medications, the ? patient was re-assessed for ? adequacy to receive sedatives. ? The procedure, indications, ? benefits, risks [...] the procedure ? well. ? Findings: ? Developing Grade I varices were found in the lower ? third of the esophagus. They were diminutive in size. ? Type 1 isolated gastric varices (IGV1, varices ? located in the fundus) were found in the fundus and ? towards the lesser curvature of the stomach that was ? previously identified with likely overlying polyp. ? There were stigmata of recent bleeding and contact ? friability of the overlying polyp. ? Mild portal hypertensive gastropathy was found in the ? entire examined stomach. ? The examined duodenum was normal. ? Moderate Sedation: ? Not applicable - See Anesthesia documentation Impression: ?- Grade I esophageal varices. ? - Type 1 isolated gastric varices ? (IGV1, varices located in the ? fundus). This likely has been ? bleeding intermittently. ? - Portal hypertensive gastropathy. ? - Normal examined duodenum. ? - No specimens collected. Recommendation: ?- Discharge patient to home (with ? escort). ? - Resume previous diet today. ? - Continue present medications. ? - Return to GI clinic as previously ? scheduled. ? - If signs of more significant ? blood loss occurs, consider TIPS ? Attending Participation: ? I personally performed the entire procedure. ? Delfina Alamo M.D. Delfina Alamo, 08/04/2024 10:05:36 AM Number of Addenda: 0 Note Initiated On: 08/04/2024 9:23 AM PROVATION 08/04/2024 9:23 AM EST Unknown GENERAL SURGICAL ORD ERABLES Performing Organization Address City/[facility]/ZIP Co de Phone Number PROVATION * AFP tumor marker (07/22/2024 9:38 AM EST) Alpha Fetoprotein Tumor Marker 2.5 <=8.3 ng/ml 07/22/2024 11:56 AM EST [facility] Comment:This result was gene rated using a Anthony Viridiana immunoassay. Results obtained from other methods or manufacturers cannot be used interchangeably with this method. Blood VENOUS BLOOD SPECIMEN / Unknown Venipuncture / Unknown 07/22/2024 9:38 AM EST 07/22/2024 9:38 AM EST Ana Ho MD CHEMISTRY ORDERABLES Performing Organization Address [facility] Co de Phone Number [facility] [place] [address] * Vitamin D, 25-Hydroxy (07/22/2024 9:38 AM EST) Vitamin D Total 25 OH 38 21 - 100 ng/ml 07/22/2024 11:56 AM EST [facility] Vitamin D Total 25 OH Interp Sufficient 07/22/2024 11:56 AM EST [facility] Blood VENOUS BLOOD SPECIMEN / Unknown Venipuncture / Unknown 07/22/2024 9:38 AM EST 07/22/2024 9:38 AM EST Candy Clifford MD CHEMISTRY ORDE LESLIE Performing Organization Address City/[facility]/ZIP Co de Phone Number [facility] [place] [address] * (ABNORMAL) Prothrombin Time (07/22/2024 9:38 AM EST) Pathologist [facility] Prothrombin Time 13.0(H) 9.4 - 12.5 sec 07/22/2024 10:17 AM [facility] International Normalization Ratio 1.1 <=4.9 07/22/2024 10:17 AM [facility] Comment: An INR < 2.0 [...] EST Ana Ho MD HEMATOLOGY ORDERABLE S [facility] [place] [address] * (ABNORMAL) CBC (with Diff) (07/22/2024 9:38 AM EST) [facility] White Blood Cell 5.05 4.00 - 9.50 x10(3)/mc L 07/22/2024 10:03 AM [facility] Red Blood Cell 4.51 4.00 - 5.21 x10(6)/mc L 07/22/2024 10:03 AM [facility] Hemoglobin 13.8 11.7 - 15.5 g/dL 07/22/2024 10:03 AM [facility] Hematocrit 41.3 35.7 - 45.8 % 07/22/2024 10:03 AM [facility] Mean Cell Volume 91.6 82.6 - 94.4 fL 07/22/2024 10:03 AM [facility] Mean Cell Hemoglobin 30.6 27.1 - 32.0 pg 07/22/2024 10:03 AM [facility] Mean Cell Hemoglobin Concentration 33.4 31.7 - 35.0 g/dL 07/22/2024 10:03 AM [facility] Platelet 217 145 - 357 x10(3)/mc L 07/22/2024 10:03 AM [facility] Mean Platelet Volume 9.9 7.6 - 12.9 fL 07/22/2024 10:03 AM [facility] RDW Standard Deviation 46.6(H) 37.0 - 46.0 fL 07/22/2024 10:03 AM [facility] RDW coefficient of variation 13.7 11.5 - 14.1 % 07/22/2024 10:03 AM [facility] NRBC% auto 0.0 % 07/22/2024 10:03 AM [facility] NRBC Absolute <0.01 <0.01 x10(3)/mc L 07/22/2024 10:03 AM [facility] Neutrophil % 59.2 % 07/22/2024 10:03 AM [facility] Neutrophil Absolute (ANC) - Automated 2.99 1.70 - 6.10 x10(3)/mc L 07/22/2024 10:03 AM [facility] Lymph % 28.5 % 07/22/2024 10:03 AM [facility] Lymph Absolute 1.44 0.90 - 3.20 x10(3)/mc L 07/22/2024 10:03 AM [facility] Monocyte % 8.7 % 07/22/2024 10:03 AM [facility] Monocyte Absolute 0.44 0.30 - 0.90 x10(3)/mc L 07/22/2024 10:03 AM [facility] Eos % 3.0 % 07/22/2024 10:03 AM [facility] Eos Absolute 0.15 0.00 - 0.40 x10(3)/mc L 07/22/2024 10:03 AM EST [facility] Basophil % 0.4 % 07/22/2024 10:03 AM EST [facility] Baso Absolute <0.04 0.00 - 0.10 x10(3)/mc L 07/22/2024 10:03 AM EST [facility] Immature Gran % 0.2 % 10:03 AM EST [facility] Immature Gran Absolute <0.04 0.00 - 0.04 x10(3)/mc L 07/22/2024 10:03 AM EST [facility] Blood VENOUS BLOOD SPECIMEN / Unknown Venipuncture / Unknown 07/22/2024 9:38 AM EST 07/22/2024 9:38 AM EST Ana Ho MD HEMATOLOGY ORDERABLE S Performing Organization Address City/[facility]/ZIP Co de Phone Number [facility] [place] [address] * TSH (07/22/2024 9:38 AM EST) Thyroid Stimulating Hormone 0.97 0.27 - 4.20 mcIU/mL 07/22/2024 11:10 AM EST [facility] Comment: Reference Interval (mcIU/mL): ?? Females: ? First Trimester: 0.23-3.88 ? Second Trimester: 0.22-3.90 ? Third Trimester: 0.44-4.66 Blood VENOUS BLOOD SPECIMEN / Unknown Venipuncture / Unknown 07/22/2024 9:38 AM EST 07/22/2024 9:38 AM EST Candy Clifford MD CHEMISTRY ZACK NELSON [facility] [place] [address] * Hemoglobin A1c (07/22/2024 9:38 AM EST) Hemoglobin A1c 5.0 4.3 - 5.6 % 07/22/2024 11:04 AM EST [facility] Comment: Per ADA guidelines, without [...] red blood cell turnover may not be automotive sales representative of glycemic control. Reference Interval: 4.3 - 5.6% 5.7 - 6.4%: Consistent with prediabetes >=6.5%: Consistent with diagnosis of diabetes mellitus Estimated Average Glucose 07/22/2024 11:04 AM EST [facility] Comment:Estimated Average Gl ucose not appropriate for patients over 70 years of age. Blood VENOUS BLOOD SPECIMEN / Unknown Venipuncture / Unknown 07/22/2024 9:38 AM EST 07/22/2024 9:38 AM EST Narrative [facility] - 07/22/2024 11:04 AM EST Estimated average glucose (eAG) is calculated from the equation described in: Guy AYON, Derrick J, Trung R, et al. ??Translating the A1C assay into estimated average glucose values. ??Diabetes Care 2008:31(8):4886-7304. Additional resources are available on the ADA website (diabetes.org). Candy Clifford MD CHEMISTRY ZACK NELSON [facility] [place] [address] * Ferritin (07/22/2024 9:38 AM EST) Ferritin 57 11 - 328 ng/ml 07/22/2024 11:12 AM EST [facility] Blood VENOUS BLOOD SPECIMEN / Unknown Venipuncture / Unknown 07/22/2024 9:38 AM EST 07/22/2024 9:38 AM EST Candy Clifford MD CHEMISTRY ORDE LESLIE [facility] [place] [address] * Vitamin B12 (07/22/2024 9:38 AM EST) Vitamin B12 786 232 - 1,245 pg/mL 07/22/2024 11:56 AM [facility] Blood VENOUS BLOOD SPECIMEN / Unknown Venipuncture / Unknown 07/22/2024 9:38 AM EST 07/22/2024 9:38 AM EST Candy Clifford MD CHEMISTRY ORDRicarda NELSON Performing Organization Address City/[facility]/ZIP Co de Phone Number [facility] [place] [address] * Lipid Panel (Reflex Direct LDL) (07/22/2024 9:38 AM EST) Cholesterol, Total 126 mg/dL 07/22/2024 11:10 AM [facility] Comment: Desirable: < 200 mg/dL Borderline High: 200 - 239 mg/dL High: > or = 240 mg/dL Triglyceride 85 mg/dL 07/22/2024 11:10 AM [facility] Comment: Normal: <150 mg/dL Borderline High: 150-199 mg/dL High: 200-499 mg/dL Very High: > or =500 mg/dL HDL Cholesterol 47 mg/dL 11:10 AM [facility] Comment:Female: High Risk: < 50 mg/dL LDL Cholesterol 62 mg/dL 11:10 AM [facility] Comment: Desirable: <100 mg/dL Above Desirable: 100-129 mg/dL Borderline High: 130-159 mg/dL High: 160-189 mg/dL Very High: > or =190 mg/dL Note: LDL calculation updated to the NIH LDL formula as of 04/05/2024 Non-HDL Cholesterol 79 mg/dL 07/22/2024 11:10 AM EST [facility] Comment: Desirable: <130 mg/dL Above Desirable: 130-159 mg/dL Borderline High: 160-189 mg/dL High: 190-219 mg/dL Very High: > or = 220 mg/dL Blood VENOUS BLOOD SPECIMEN / Unknown Venipuncture / Unknown 07/22/2024 9:38 AM EST 07/22/2024 9:38 AM EST [facility] - 07/22/2024 11:10 AM EST It [...] disease) Candy Clifford MD CHEMISTRY ZACK NELSON [facility] [place] [address] * (ABNORMAL) Comprehensive metabolic panel (non-fasting) (07/22/2024 9:38 AM EST) [facility] Glucose 86 65 - 99 mg/dL 07/22/2024 11:10 AM [facility] Comment: Fasting Glucose Interpretive Criteria: [...] 8 - 18 mg/dL 07/22/2024 11:10 AM EST [facility] Creatinine 0.67(L) 0.70 - 1.20 mg/dL 07/22/2024 11:10 AM EST [facility] Sodium 141 135 - 145 mMol/L 07/22/2024 11:10 AM [facility] Potassium 3.8 3.5 - 5.0 mMol/L 07/22/2024 11:10 AM [facility] Chloride 104 98 - 107 mMol/L 07/22/2024 11:10 AM [facility] Carbon Dioxide 28 22 - 31 mMol/L 07/22/2024 11:10 AM [facility] Anion Gap 9 5 - 15 mMol/L 07/22/2024 11:10 AM [facility] Calcium 9.0 8.5 - 10.5 mg/dL 07/22/2024 11:10 AM [facility] Protein, Total 6.7 6.1 - 8.0 g/dL 07/22/2024 11:10 AM [facility] Albumin 3.6 3.2 - 5.2 g/dL 07/22/2024 11:10 AM [facility] Aspartate Aminotransferase 25 <=30 unit/L 07/22/2024 11:10 AM [facility] Alanine Aminotransferase 17 0 - 30 unit/L 07/22/2024 11:10 AM [facility] Alkaline Phosphatase 70 35 - 105 unit/L 07/22/2024 11:10 AM [facility] Bilirubin, Total 1.0 <=1.3 mg/dL 07/22/2024 11:10 AM [facility] Est Glomerular Filtration Rate - Female 92 mL/min/1. 73 m?? 07/22/2024 11:10 AM [facility] Comment: This patient's estimated GFR [...] Foundation Fasting Status Yes 07/22/2024 11:10 AM [facility] Blood VENOUS BLOOD SPECIMEN / Unknown Venipuncture / Unknown 07/22/2024 9:38 AM EST 07/22/2024 9:38 AM EST Ana Ho MD CHEMISTRY ORDERABLES [facility] [place] [address] * US Abdomen Limited Hepatology Protocol (07/22/2024 9:07 AM EST) WORKSTATION ID [id number] RAD Anatomical Region Laterality Modality Abdomen Ultrasound [...] of 4.6 cm simple right renal cyst. Thank you for letting us participate in the care of this patient. If you are a health care provider and have any questions regarding this report, please contact the number above. For patients who have questions, please contact the health career developer that requested your imaging first. ? Julian Dailey, Staff Physician Electronically Signed Final Report ?? 07/22/2024 09:28 am Narrative 07/22/2024 9:29 AM EST Abdominal ? (Signed Final 07/22/2024 09:28 am) PATIENT INFO: ID #: ? [id number] ?: ??[birth year] (74 yrs)(F) Name: ? SHERRON M ROBER ?Visit Date: 07/22/2024 09:03 am PERFORMED BY: Attending: ?Ashlie GRACE, Julian Lemus Performed By: ? Loretta Hoover RDMS Referred By: ?ANA AIDA Location: ? [place] [facility] - Abdominal ?55529 Limited Survey Single Organ or Quadrant - [id number] INDICATIONS: cirrhosis, HCC screening COMPARISON: US: Hepatology [...] 07/22/2024 09:28 am) PATIENT INFO: ID #: [id number] : [birth year] (74 yrs)(F) Name: SHERRON RICHTER Visit Date: 07/22/2024 09:03 am PERFORMED BY: Attending: Julian Dailey MD Performed By: Loretta Hoover RDMS Referred By: ANA HO Location: [place] SERVICE(S) PROVIDED: [facility] - Hepatology Protocol - Abdominal 70635 Limited Survey Single Organ or Quadrant - [id number] INDICATIONS: cirrhosis, HCC screening COMPARISON: US: Hepatology [...] of 4.6 cm simple right renal cyst. Thank you for letting us participate in the care of this patient. If you are a health care provider and have any questions regarding this report, please contact the number above. For patients who have questions, please contact the health career developer that requested your imaging first. Julian Dailey, Staff Physician Electronically Signed Final Report 07/22/2024 09:28 am Ana Ho MD IMG GEN ORDERABLE S * COLONOSCOPY (06/05/2022 10:38 AM EDT) COLONOSCOPY [facility] Endoscopy Procedure Date: 06/05/2022 10:38 AM ? Patient Name: Sherron Rober ? Date of : 1950 ? Age: 72 ? Order #: [id number] ? Instrument Name: [id number] ? Procedure: ? Colonoscopy Indications: ? High risk colon cancer ? surveillance: Personal history of ? colonic polyps Providers: ? Tracey Patel Rita F. ? Matthew Referring MD: ?Justino Deng: ? [...] preparation was evaluated ? using the BBPS ([place] Bowel ? Preparation Scale) with scores of: [...] as ? previously scheduled. ? - Per [place] Multi-Society Task Force ? of Colorectal Cancer [...] capacity to make decision: Yes Care Teams Software Publisher Relationship Specialty Start Date End Date Horace Singer PA [facility] [address] [place] [address] PCP - General Internal Medicine 08/03/24
--- OUTSIDE RECORDS SUMMARY | 2024-10-07 20:36 | XMS_ITS | Encounter Summary ---
Author Organization [facility] [place] [address] Care Team Providers Care Mounted Police Officer Name Role Phone Horace Singer Primary Care Provider + Reason for Visit * Reason Comments Medication Refill Encounter Details Date Type Department Care Team (Late st Contact Info) Description 08/28/2024 [place] [address] Ana Ho MD [facility] [place] [address] Social History Tobacco Use Types Packs/Day Years [...] 9:00 AM EDT Laboratory Appointment Lab [address] [place] [address] 01/20/2025 9:30 AM EDT [place] [address] Ana Ho MD [facility] GASTROENTEROLOGY [place], [place] [id number] 01/20/2025 11:00 AM EDT Office [place] [phone] Ana Ho MD [facility] [place] [address] 01/20/2025 12:00 PM EDT Office [place] [address] Candy Clifford MD [facility] DR [facility] [address] documented as of this encounter Goals Goal Patient Goal Type Associated Problems Recent Progress Patient-Stated? Author movement Exercise On track(2021 11:16 AM EDT) No Pankaj Mcadams Note: Try gentle movement like chair yoga, t'ai chi and qigong. Health Safety Director will send hand-outs. Use resistance bands. Health Safety Director will request a set be mailed. [...] opportunity to start with protein (cottage cheese, hebrew yogurt, protein smoothies, chicken or chicken salad [...] for sample meal ideas in the [facility] Keep food log until you are seen by the dieititian. Record everything you eat or drink, include time eaten and any emotional changes that are significant. relaxation/sleep Lifestyle No Pankaj Mcadams Note: Try some meditation/relaxation apps when I wake in the night and can't go back to sleep. Health Safety Director will send some to try. Tried apps but don't really like them as I like the quiet when going to sleep. [facility] 04/23 documented as of this encounter Visit Diagnoses Not on filedocumented in this encounter Care Teams Mounted Police Officer Relationship Specialty Start Date End Date Horace [place] [place] [address] PCP - General Internal Medicine 08/03/24 documented as of this encounter
--- OUTSIDE RECORDS SUMMARY | 2024-10-07 20:36 | XMS_ITS | Encounter Summary ---
Author Organization [facility] [place] [address] Care Team Providers Care Cloth Finishing Range Back Tender Name Role Phone Justino Lucia MD Primary Care Provider [phone] Encounter Details Date Type Department Care Team [...] 9:00 AM EDT Laboratory Appointment Lab [address] [place] [phone] 01/20/2025 9:30 AM EDT Appointment [place] [address] Ana Ho MD [facility] [place] [address] 01/20/2025 11:00 AM EDT Office Visit [place] [phone] Ana Ho MD [facility] [place] [address] 01/20/2025 12:00 PM EDT Office [place] [address] Candy Clifford MD [facility] DR [facility] [address] documented as of this encounter Goals Goal Patient Goal Type Associated Problems Recent Progress Patient-Stated? Author movement Exercise On track(2021 11:16 AM EDT) No Pankaj Mcadams Note: Try gentle movement like chair yoga, t'ai chi and qigong. Health Elementary School Librarian will send hand-outs. Use resistance bands. Health Elementary School Librarian will request a set be mailed. Movement Exercise On track(2021 11:16 AM EDT) No Pankaj Mcadams Note: Look around town, [place] [facility], gyms, for a class to participate in, bone builders or gentle stretching. Nutrition Lifestyle No Candy Clifford MD Note: Nutrition Goals updated today: 12/11/22 TF 1. Focus on reaching adequate protein intake - aim for 60-80 grams (handout attached in after visit summary) 2. Consider the 3 eating events per day to be an opportunity to start with protein (cottage cheese, kinyarwanda yogurt, protein smoothies, chicken or chicken salad [...] for sample meal ideas in the [facility] Keep food log until you are seen by the dieititian. Record everything you eat or drink, include time eaten and any emotional changes that are significant. relaxation/sleep Lifestyle No Pankaj Mcadams Note: Try some meditation/relaxation apps when I wake in the night and can't go back to sleep. Health Elementary School Librarian will send some to try. Tried apps but don't really like them as I like the quiet when going to sleep. [facility] 04/23 documented as of this encounter Visit Diagnoses Not on filedocumented in this encounter Care Teams Cloth Finishing Range Back Tender Relationship Specialty Start Date End Date Justino Lucia MD PCP - General Family Medicine 10/04/21 07/21/24 documented as of this encounter
--- OUTSIDE RECORDS SUMMARY | 2024-10-07 20:36 | XMS_ITS | Encounter Summary ---
Author Organization [facility] [place] [address] Care Team Providers Care Vibrator Equipment Tester Name Role Phone Justino Lucia MD Primary Care Provider [phone] Reason for Visit * Reason Comments Medication Refill Encounter Details Date Type Department Care Team (Late st Contact Info) Description 04/12/2024 Refill [place] [address] Candy Clifford MD [facility] DR NICHOL[facility] PER[facility] [address] Social History Tobacco Use Types [...] 9:00 AM EDT Laboratory Appointment Lab [address] [place] [address] 01/20/2025 9:30 AM EDT Appointment [place] [address] Ana Ho MD [facility] [place] [address] 01/20/2025 11:00 AM EDT Office Visit [place] [phone] Ana Ho MD [facility] [place] [address] 01/20/2025 12:00 PM EDT Office Visit [place] [phone] Candy Clifford MD [facility] DR N[facility]OL[facility] [address] documented as of this encounter Goals Goal Patient Goal Type Associated Problems Recent Progress Patient-Stated? Author movement Exercise On track(2021 11:16 AM EDT) No Pankaj Mcadams Note: Try gentle movement like chair yoga, t'ai chi and qigong. Health Foundation Maker will send hand-outs. Use resistance bands. Health Foundation Maker will request a set be mailed. [...] opportunity to start with protein (cottage cheese, arabic yogurt, protein smoothies, chicken or chicken salad [...] and can't go back to sleep. Health Foundation Maker will send some to try. Tried apps but don't really like them as I like the quiet when going to sleep. [facility] 04/23 documented as of this encounter Visit Diagnoses Not on filedocumented in this encounter Care Teams Vibrator Equipment Tester Relationship Specialty Start Date End Date Justino Lucia MD PCP - General Family Medicine 10/04/21 07/21/24 documented as of this encounter
--- OUTSIDE RECORDS SUMMARY | 2024-10-07 20:36 | XMS_ITS | Encounter Summary ---
Author Organization [facility] [place] [address] Care Team Providers Care Bisque Kiln Drawer Name Role Phone Justino Lucia MD Primary Care Provider [phone] Reason for Visit * Reason Onset Date Comments Medication Refill 05/20/2024 Encounter Details Date Type Department Care Team (Late st Contact Info) Description 05/20/2024 Refill [place] [address] Candy Clifford MD [facility] DR NICHOL[facility] PERDOM[facility] [address] Social History Tobacco Use Types [...] 9:00 AM EDT Laboratory Appointment Lab [address] [place] [address] 01/20/2025 9:30 AM EDT Appointment [place] [address] Ana Ho MD [facility] [place] [address] 01/20/2025 11:00 AM EDT Office Visit [place] [address] Ana Ho MD [facility] [place] [address] 01/20/2025 12:00 PM EDT Office [place] [address] Candy Clifford MD [facility] DR [facility]ICH[facility] PERDOM[facility] [address] documented as of this encounter Goals Goal Patient Goal Type Associated Problems Recent Progress Patient-Stated? Author movement Exercise On track(2021 11:16 AM EDT) No Pankaj Mcadams Note: Try gentle movement like chair yoga, t'ai chi and qigong. Health Repairer Art Objects will send hand-outs. Use resistance bands. Health Repairer Art Objects will request a set be mailed. Movement [...] and can't go back to sleep. Health Repairer Art Objects will send some to try. Tried apps but don't really like them as I like the quiet when going to sleep. [facility] 04/23 documented as of this encounter Visit Diagnoses Not on filedocumented in this encounter Care Teams Bisque Kiln Drawer Relationship Specialty Start Date End Date Justino Lucia MD PCP - General Family Medicine 10/04/21 07/21/24 documented as of this encounter
--- OUTSIDE RECORDS SUMMARY | 2024-10-07 20:36 | XMS_ITS | Encounter Summary ---
Author Organization [facility] [place] [address] Care Team Providers Care Retina Subspecialist Name Role Phone Unavailable Primary Care Provider Unavailabl e Encounter Details Date Type Department Care Team (Latest Contact Info) Description 07/22/2024 Travel Social History Tobacco Use Types Packs/Day [...] 9:00 AM EDT Laboratory Appointment Lab [address] [place] [phone] 01/20/2025 9:30 AM EDT Appointment [place] [address] Ana Ho MD [facility] [place] [address] 01/20/2025 11:00 AM EDT Office Visit [place] [phone] Ana Ho MD [facility] [place] [address] 01/20/2025 12:00 PM EDT Office [place] [address] Candy Clifford MD [facility] DR NICHOLAS PER[place] [address] documented as of this encounter Goals Goal Patient Goal Type Associated Problems Recent Progress Patient-Stated? Author movement Exercise On track(2021 11:16 AM EDT) No Pankaj Mcadams Note: Try gentle movement like chair yoga, t'ai chi and qigong. Health Astrophysics Teacher will send hand-outs. Use resistance bands. Health Astrophysics Teacher will request a set be mailed. Movement Exercise On track(2021 11:16 AM EDT) No Pankaj Mcadams Note: Look around town, [employer], gyms, for a class to participate in, bone builders or gentle stretching. Nutrition Lifestyle No Candy Clifford MD Note: Nutrition Goals updated today: 12/11/22 TF 1. Focus on reaching adequate protein intake - aim for 60-80 grams (handout attached in after visit summary) 2. Consider the 3 eating events per day to be an opportunity to start with protein (cottage cheese, cymro yogurt, protein smoothies, chicken or chicken salad [...] for sample meal ideas in the [facility] Keep food log until you are seen by the dieititian. Record everything you eat or drink, include time eaten and any emotional changes that are significant. relaxation/sleep Lifestyle No Pankaj Mcadams Note: Try some meditation/relaxation apps when I wake in the night and can't go back to sleep. Health Astrophysics Teacher will send some to try. Tried apps but don't really like them as I like the quiet when going to sleep. [facility] 04/23 documented as of this encounter Visit Diagnoses Not on filedocumented in this encounter
--- OUTSIDE RECORDS SUMMARY | 2024-10-07 20:36 | XMS_ITS | Encounter Summary ---
Author Organization [facility] [place] [address] Care Team Providers Care Sister Superior Name Role Phone Horace Singer Primary Care Provider + Reason for Visit * Auth/Cert (Routine) Specialty Diagnoses / Procedures Referred By Contac t Referred To Contact Diagnoses Hepatic cirrhosis, unspecified hepatic cirrhosis type, unspecified whether ascites present variceal screening Procedures PRO UPPER GI ENDOSCOPY, DIAGNOSTIC PRO UPPER GI ENDOSCOPY, BIOPSY PRO UP GI ENDOSCOPY, REMV TUMOR, SNARE PRO ANES, UGI ENDOSCOPY NOS EGD, UPPER GI ENDOSCOPY (WRVU 2.09) Delfina Alamo MD [facility] [place] [address] [facility] Referral ID Status Reason Start Date Expiration Date Visits Re quested Visits Authorized [id number] 1 1 Encounter Details Date Type Department Care Team ([facility] st Contact Info) Description 08/04/2024 9:30 AM EST Anesthesia [place] [address] Mark Healy MD [address] [place] [address] [place] [address] Anesthesia Record Procedure Summary Procedure Name Responsible Anesthesiologist Anesthesia Start Time Anesthesia Stop Time EGD, UPPER GI ENDOSCOPY (WRVU 2.09) (Trunk) Mark Healy MD 08/04/24 0930 08/04/24 0951 Events Date Time Event Comment 08/04/2024 0904 0930 AN Verify 0930 Start 0930 An Start Data 0934 An Induction 0934 Anesthesia Ready 0950 an stop data 0950 Recovery or ICU Handoff Dione ent care was transferred to the destination unit staff after review of the patient's medical history, current anesthetic/surgical status and plan, according to the Provider Handoff Checklist. 0951 Stop Meds Name Total lidocaine IV 50 mg propofoL 100 mg propofol INF 164.13 mg PHENYLephrine 80 mcg * Agents Name O2 * Blood No blood administrations on file. Lines, Drains, and Airways Type Details Placement Removal PIV 06/18/23; 1119; [id number] catheter system; 22 gauge; metacarpal vein (top of hand), right; ALICIA TIRADO; distraction; 0; 08/04/24; 1113 06/18/23 1119 by Tracey Kumar RN 08/04/24 1113 by Anna Cisse RN PIV 08/04/24; 0900; [id number]-[id number] catheter system; 22 gauge; metacarpal vein (top of hand), right; Tanya RN; 08/04/24; 1113 08/04/24 0900 by Yane Antunez LPN 08/04/24 1113 by Anna Cisse RN documented in this encounter Social History [...] OR Notes * Anesthesia Postprocedure Evaluation - Mark Healy MD - 08/04/2024 10:31 AM EST Department of Anesthesiology Post-procedure Note Patient: Telma [place] Procedure Summary Date: 08/04/24 Room / Location: [facility] ENDO 6 / [facility] ENDOSCOPY Anesthesia Start: 929 Anesthesia Stop: 950 Procedure: EGD, UPPER GI ENDOSCOPY (WRVU 2.09) (Trunk) Diagnosis: Hepatic cirrhosis, unspecified hepatic cirrhosis type, unspecified whether ascites present (variceal screening) Surgeons: Delfina Alamo MD Responsible Provider: Mark Healy MD Anesthesia Type: MAC ASA Status: 3 All Anesthesia Providers: Anesthesiologist: Mark Healy MD SCALE RECLAMATION TENDER: William Villafana CRNA Vitals Value Taken Time BP 117/57 08/04/24 1030 Temp Pulse Resp 16 08/04/24 1020 SpO2 99 % 08/04/24 1031 Pain Score 0 08/04/24 1020 Vitals shown include unfiled device data. Patient Location: PACU/[facility] Level of Consciousness: Awake and Alert Pain Management: Satisfactory Analgesia PONV: None Cardiovascular Status: At Baseline and Hemodynamically Stable Respiratory Status: At Baseline and Room Air Postoperative Fluid Status: Intravascular EUvolemia Possible Anesthetic Complications: NONE apparent at time of evaluation Final Primary Anesthesia Type: MAC (The anesthetic type performed was the same as planned.) Comments: Mark Healy MD * Anesthesia Preprocedure Evaluation - Mark Healy MD - 08/04/2024 7:41 AM EST Pre-Anesthesia Evaluation for: Telma Richter a 74 y.o. female. Procedure(s): EGD, UPPER GI ENDOSCOPY (WRVU 2.09) Patient Active Problem List Diagnosis Date Noted [...] 4.67) [facility]?? PRO UPPER GI ENDOSCOPY, DIAGNOSTIC N/A 06/05/2022 EGD, UPPER GI ENDOSCOPY performed by Leo Rojas MD at [facility] ENDOSCOPY ??? PRO UPPER GI ENDOSCOPY, DIAGNOSTIC N/A 06/18/2023 EGD, UPPER GI ENDOSCOPY (WRVU 2.09) performed by Julian Jones MD at [facility] ENDOSCOPY Social History Tobacco Use ??? Smoking status: Former Current packs/day: 3.00 Average packs/day: 3.0 packs/day for 42.0 years (126.0 ttl pk-yrs) Types: Cigarettes ??? Smokeless tobacco: Never Substance Use Topics ??? Alcohol use: No Social History Substance and Sexual Activity Drug Use Not Currently Comment: Q to help her sleep No Known Allergies Medications: MAR and/or home medications have been reviewed. Physical Exam: Preprocedure Vitals Current as of 08/04/24 0741 No BP, pulse, respiration, SpO2, or temperature recorded. Height: Weight: BMI: IBW: Airway Assessment: Mallampati: III TM distance: >3 FB Neck ROM: full Cardiovascular Assessment: Rate: normal Pulmonary Assessment: unlabored breathing Dental Assessment: Misc Assessment: IV access: Peripheral line Last Filed Perioperative Cognitive Screening None Anesthesia Plan: ASA 3 MAC, with a(n) intravenous induction 74F pmhx cirrhosis scheduled for endoscopy PMH: BMI 49.5, HTN, asthma, pSVT, non obstructing CAD based on 2016 cath, 2016 ECHO with PASP 40-45otherwise unremarkable NPO appropriate, denies GERD, <4 mets ECHO with normal biventricular function, mild aortic sclerosis. Plan: TIVA/MAC Region - Other Informed Consent: Anesthetic plan and risks discussed with patient. Plan discussed with SCALE RECLAMATION TENDER. Anesthesia Screening documented in this encounter Plan of Treatment Upcoming Encounters Date Type Department Care Team (Late st Contact Info) Description 01/20/2025 9:00 AM EDT Laboratory Appointment Lab [address] [place] [address] 01/20/2025 9:30 AM EDT [place] [address] Ana Ho MD [facility] [place] [address] 01/20/2025 11:00 AM EDT Office [place] [address] Ana Ho MD [facility] [place] [address] 01/20/2025 12:00 PM EDT Office [place] [address] Candy Clifford MD [facility] DR [facility]DOM[facility] [address] documented as of this encounter Goals Goal Patient Goal Type Associated Problems Recent Progress Patient-Stated? Author movement Exercise On track(2021 11:16 AM EDT) No Pankaj Mcadams Note: Try gentle movement like chair yoga, t'ai chi and qigong. Health Psych Coordinator will send hand-outs. Use resistance bands. Health Psych Coordinator will request a set be mailed. [...] opportunity to start with protein (cottage cheese, burundian yogurt, protein smoothies, chicken or chicken salad [...] and can't go back to sleep. Health Psych Coordinator will send some to try. Tried apps but don't really like them as I like the quiet when going to sleep. [facility] 04/23 documented as of this encounter Visit Diagnoses Not on filedocumented in this encounter Administered Medications Inactive Administered Medications - up to 3 most recent administrations Medication Order MAR Action Action Date Dose Rate Site lidocaine (pf) (Xylocaine) (20 mg/mL) 2% injection syringe Intravenous, PRN, Starting on Sat08/04/24 at 0934, Until Sat08/04/24 at 0951, Anesthesia Intra-op, Routine Given 08/04/2024 9:34 AM EST 50 mg PHENYLephrine in NS (PF) (LARRY-SYNEPHRINE) 0.8 mg/10 mL (80 mcg/mL) multi-dose injection Syringe Intravenous, PRN, Starting on Sat08/04/24 at 0948, Until e 08/04/24 at 0951, Anesthesia Intra-op, Routine Given 08/04/2024 9:48 AM EST 80 mcg propofoL (Diprivan) (10 mg/mL) infusion Intravenous, CONTINUOUS PRN, Starting on Sat08/04/24 at 0934, Until 08/04/24 at 0951, Anesthesia Intra-op, Routine Rate/Dose Change 08/04/2024 9:40 AM EST 175 mcg/kg/min 83.055 mL/hr New Bag 08/04/2024 9:34 AM EST 200 mcg/kg/min 94.92 mL/ hr propofoL (Diprivan) 10 mg/mL bolus injection (Anesthesia) Intravenous, PRN, Starting on Sat08/04/24 at 0934, Until 08/04/24 at 0951, Anesthesia Intra-op Given 08/04/2024 9:34 AM EST 100 mg documented in this encounter Care Teams Sister Superior Relationship Specialty Start Date End Date [place] [address] PCP - General Internal Medicine 08/03/24 documented as of this encounter
--- OUTSIDE RECORDS SUMMARY | 2024-10-07 20:36 | XMS_ITS | Encounter Summary ---
Author Organization [facility] [place] [address] Care Team Providers Care Site Director Name Role Phone Justino Lucia MD Primary Care Provider [phone] Encounter Details Date Type Department Care Team [...] 9:00 AM EDT Laboratory Appointment Lab [address] [place] [phone] 01/20/2025 9:30 AM EDT Appointment [place] [address] Ana Ho MD [facility] [place] [address] 01/20/2025 11:00 AM EDT Office [place] [phone] Ana Ho MD [facility] [place] [address] 01/20/2025 12:00 PM EDT Office [place] [address] Candy Clifford MD [facility] DR [facility] [place] [address] documented as of this encounter Goals Goal Patient Goal Type Associated Problems Recent Progress Patient-Stated? Author movement Exercise On track(2021 11:16 AM EDT) No Pankaj Mcadams Note: Try gentle movement like chair yoga, t'ai chi and qigong. Health Corporate Law Assistant will send hand-outs. Use resistance bands. Health Corporate Law Assistant will request a set be mailed. Movement Exercise On track(2021 11:16 AM EDT) No Pankaj Mcadams Note: Look around town, [employer], gyms, for a class to participate [...] sample meal ideas in the [facility] Keep food log until you are seen by the dieititian. Record everything you eat or drink, include time eaten and any emotional changes that are significant. relaxation/sleep Lifestyle No Pankaj Mcadams Note: Try some meditation/relaxation apps when I wake in the night and can't go back to sleep. Health Corporate Law Assistant will send some to try. Tried apps but don't really like them as I like the quiet when going to sleep. [facility] 04/23 documented as of this encounter Visit Diagnoses Not on filedocumented in this encounter Care Teams Site Director Relationship Specialty Start Date End Date Justino Lucia MD PCP - General Family Medicine 10/04/21 07/21/24 documented as of this encounter
--- OUTSIDE RECORDS SUMMARY | 2024-10-07 20:36 | XMS_ITS | Encounter Summary ---
Author Organization [facility] Address [facility] [place] [address] Care Team Providers Care Garnisher Name Role Phone Justino Lucia MD Primary Care Provider [phone] Encounter Details Date Type Department Care Team (Late st Contact Info) Description 06/12/2024 Notes Only Care Management [facility] [place] [phone] Priscilla Gonzalez Social History Tobacco Use Types [...] 9:00 AM EDT Laboratory Appointment Lab [address] [place] [address] 01/20/2025 9:30 AM EDT Appointment Ultrasound at [place] [phone] Ana Ho MD [facility] [place] [address] 01/20/2025 11:00 AM EDT Office Visit [place] [phone] Ana Ho MD [facility] [place] [address] 01/20/2025 12:00 PM EDT Office [place] [address] Candy Clifford MD [facility] DR N[address]OL[address] [place] [address] documented as of this encounter Goals Goal Patient Goal Type Associated Problems Recent Progress Patient-Stated? Author movement Exercise On track(2021 11:16 AM EDT) No Pankaj Mcadams Note: Try gentle movement like chair yoga, t'ai chi and qigong. Health Head Of Biology will send hand-outs. Use resistance bands. Health Head Of Biology will request a set be mailed. Movement [...] opportunity to start with protein (cottage cheese, comoran yogurt, protein smoothies, chicken or chicken salad [...] can't go back to sleep. Health Head Of Biology will send some to try. Tried apps but don't really like them as I like the quiet when going to sleep. [facility] 04/23 documented as of this encounter Visit Diagnoses Not on filedocumented in this encounter Care Teams Garnisher Relationship Specialty Start Date End Date Justino Lucia MD PCP - General Family Medicine 10/04/21 07/21/24 documented as of this encounter
--- OUTSIDE RECORDS SUMMARY | 2024-10-07 20:36 | XMS_ITS | Encounter Summary ---
Author Organization [facility] Address [facility] [place] [address] Care Team Providers Care Strap Machine Operator Automatic Name Role Phone Justino Lucia MD Primary Care Provider [phone] Encounter Details Date Type Department Care Team (Latest Contact Info) Description 01/17/2024 8:28 AM EDT - 01/17/2024 11:59 PM EDT Hospital Encounter [place] [address] Ana Ho MD [facility] [place] [address] Hepatic cirrhosis, unspecified hepatic cirrhosis type, unspecified [...] as needed for Wheezing. Use with spacer loperamide (Imodium A-D) 2 mg capsule take 1 capsule by mouth four times a day if needed for diarrhea MAX OF 16 MILLIGRAMS IN 24 HOURS 90 capsule 10/29/2023 08/28/2024 psyllium husk (psyllium)Indications: Diarrhea, unspecified type Take 1 packet by mouth daily. 90 packet 3 10/01/2023 07/22/2024 documented as of this encounter Plan of Treatment Upcoming Encounters Date Type Department Care Team (Late st Contact Info) Description 01/20/2025 9:00 AM EDT Laboratory Appointment Lab [address] [place] [address] 01/20/2025 9:30 AM EDT Appointment Ultrasound at [place] [phone] Ana Ho MD [facility] [place] [address] 01/20/2025 11:00 AM EDT Office Visit [place] [address] Ana Ho MD [facility] [place] [address] 01/20/2025 12:00 PM EDT Office [place] [phone] Candy Clifford MD [facility] DR NICHOL[address] [place] [address] documented as of this encounter Goals Goal Patient Goal Type Associated Problems Recent Progress Patient-Stated? Author movement Exercise On track(2021 11:16 AM EDT) No Pankaj Mcadams Note: Try gentle movement like chair yoga, t'ai chi and qigong. Health Miller [employer] will send hand-outs. Use resistance bands. Health [employer] will request a set be mailed. Movement [...] opportunity to start with protein (cottage cheese, sudanese yogurt, protein smoothies, chicken or chicken salad [...] for sample meal [facility] the [facility] Keep food log until you are seen by the dieititian. Record everything you eat or drink, include time eaten and any emotional changes that are significant. relaxation/sleep Lifestyle No Pankaj Mcadams Note: Try some meditation/relaxation apps when I wake in the night and can't go back to sleep. Health [employer] will send some to try. Tried apps but don't really like them as I like the quiet when going to sleep. [facility] 04/23 documented as of this encounter Procedures Procedure Name Priority Date/Time Associated Diagnosis Comments US ABDOMEN LIMITED HEPATOLOGY PROTOCOL Routine 01/17/2024 8:43 AM EDT Hepatic cirrhosis, unspecified hepatic cirrhosis type, unspecified whether ascites present documented in this encounter Results * US Abdomen Limited Hepatology Protocol (01/17/2024 8:43 AM EDT) WORKSTATION ID [id number] RAD Anatomical Region Laterality Modality Abdomen Ultrasound 01/17/2024 8:46 AM EDT Impressions 01/17/2024 9:01 AM EDT 1. Liver demonstrates coarsened parenchyma with capsular nodularity consistent with known cirrhosis. There is no focal hepatic lesion. 2. Gallbladder is surgically absent. Mild intra and extrahepatic biliary ductal dilation are present, within expected limits postoperatively. 3. Prominent varix noted near the left lobe. No ascites. Thank you for letting us participate in the care of this patient. If you are a health care provider and have any questions regarding this report, please contact the number above. For patients who have questions, please contact the health healthcare insurance sales agent that requested your imaging first. ? Roque Kohler Physician Electronically Signed Final Report ?? 01/17/2024 09:01 am Narrative 01/17/2024 9:01 AM EDT Abdominal ? (Signed Final 01/17/2024 09:01 am) PATIENT INFO: ID #: ? [id number] ?: ??[birth year] (73 yrs)(F) Name: ? SHERRON Olsen ROBER ?Visit Date: 01/17/2024 08:46 am PERFORMED BY: Attending: ?Jose F GRACE, Roque Resident: ? Jared Saunders DO Performed By: ? Brayan Reyna RDMS Referred By: ?ANA HO Location: ? [place] SERVICE(S) PROVIDED: [facility] - Hepatology Protocol - Abdominal ?11532 Limited Survey Single Organ or Quadrant - [id number] INDICATIONS: HCC screenig, history cirrhosis COMPARISON: US: [...] 01/17/2024 09:01 am) PATIENT INFO: ID #: [id number] : [birth year] (73 yrs)(F) Name: SHERRON RICHTER Visit Date: 01/17/2024 08:46 am PERFORMED BY: Attending: Roque Kohler MD Resident: Jared Saunders DO Performed By: Brayan Reyna RDMS Referred By: ANA HO Location: [place] SERV[facility] Protocol - Abdominal 77693 Limited Survey Single Organ or Quadrant - [id number] INDICATIONS: HCC screenig, history cirrhosis COMPARISON: US: [...] noted near the left lobe. No ascites. Thank you for letting us participate in the care of this patient. If you are a health care provider and have any questions regarding this report, please contact the number above. For patients who have questions, please contact the health healthcare insurance sales agent that requested your imaging first. Roque Kohler, Physician Electronically Signed Final Report 01/17/2024 09:01 am Ana Ho MD IMG US GEN ORDERABLE S documented in this encounter Visit Diagnoses Diagnosis Hepatic cirrhosis, unspecified hepatic cirrhosis type, unspecified whether ascites present documented in this encounter Care Teams Strap Machine Operator Automatic Relationship Specialty Start Date End Date Justino Lucia MD PCP - General Family Medicine 10/04/21 07/21/24 documented as of this encounter
--- OUTSIDE RECORDS SUMMARY | 2024-10-07 20:36 | XMS_ITS | Encounter Summary ---
Author Organization [facility] [place] [address] Care Team Providers Care Recruiting Specialist Name Role Phone Horace Singer Primary Care [...] GI ENDOSCOPY (WRVU 2.09) Delfina Alamo MD [facility] [place] [address] [facility] Referral ID Status Reason Start Date Expiration Date Visits Re quested Visits Authorized [id number] 1 1 Encounter Details Date Type Department Care Team (Late st Contact Info) Description 08/04/2024 9:45 AM EST - 08/04/2024 10:15 AM EST Surgery [place] [address] Delfina Alamo MD [facility] [place] [address] EGD, UPPER GI ENDOSCOPY (WRVU 2.09) Social [...] Sign Reading Time Taken Comments Blood Pressure 93/57 08/04/2024 10:10 AM EST Pulse 74 08/04/2024 8:56 AM EST Temperature 36.3 ??C (97.3 ??F) 08/04/2024 8:56 AM ES T Respiratory Rate 20 08/04/2024 8:56 AM EST Oxygen Saturation 98% 08/04/2024 10:15 AM EST Inhaled Oxygen Concentration - - Weight 122.5 kg (270 lb) 08/04/2024 8:56 AM EST Height 157.5 cm (5' 2) 08/04/2024 8:56 AM EST Body Mass Index 49.38 08/04/2024 8:56 AM EST documented in this encounter Discharge Instructions * Discharge Instructions* Anna Cisse RN - 08/04/2024 9:54 AM EST Upper GI Endoscopy: What to Expect at [...] the day after the procedure, use an zenm-qbh-xfvgnty spray to numb your throat. Sucking on [...] occurs, please contact your Doctor. Please call [phone] before 8pm Mon-Fri with problems, questions or concerns. If you call after 8pm or on weekends, call the Hospital at [phone] and ask to speak to the Aeroplane Pilot automation engineering manager and the pig machine operator will contact that person for you. When should you call for help? Call [phone] anytime you think you may need emergency [...] After Visit Summary and more online at [email or web address] If you would like to provide feedback about your hospital experience, please call the Office of Patient and Family Relations at . If you have received this After Visit Summary in error, please immediately return it in person to the department, or notify the [facility] Privacy Office by calling toll free at between the hours of 8AM and 5PM to arrange for our retrieval of the documents at no cost to you. Content Version: 12.2 ?? [id number] ED01. Care instructions adapted under license by [facility]. If you have questions about a medical condition or this instruction, always ask your healthcare professional. ED01 disclaims any warranty or liability for your [...] 10/29/2023 08/28/2024 documented as of this encounter H&P Notes * Delfina Alamo MD - 08/04/2024 8:44 AM EST Patient Name: Telma Richter Patient Age: 74 y.o. Birthdate: 1950 Admit date: 08/04/2024 Attending Physician: Delfina Alamo MD Gastroenterology and Hepatology Pre-Procedure History and Physical Exam Procedure: EGD: Indication: variceal screening Patient Active Problem List Diagnosis Code Atypical [...] 9:00 AM EDT Laboratory Appointment Lab [address] [place] [address] 01/20/2025 9:30 AM EDT Appointment Ultrasound at [place] [phone] Ana Ho MD [facility] [place] [address] 01/20/2025 11:00 AM EDT Office [place] [phone] Ana Ho MD [facility] [place] [address] 01/20/2025 12:00 PM EDT Office Visit Weight Center at [place] [phone] Candy Clifford MD [facility] DR [facility] [address] documented as of this encounter Goals Goal Patient Goal Type Associated Problems Recent Progress Patient-Stated? Author movement Exercise On track(2021 11:16 AM EDT) No Pankaj Mcadams Note: Try gentle movement like chair yoga, t'ai chi and qigong. Health Division Field Inspector will send hand-outs. Use resistance bands. Health Division Field Inspector will request a set be mailed. Movement [...] opportunity to start with protein (cottage cheese, turkmen yogurt, protein smoothies, chicken or chicken salad [...] and can't go back to sleep. Health Division Field Inspector will send some to try. Tried apps but don't really like them as I like the quiet when going to sleep. [facility] 04/23 documented as of this encounter Procedures Procedure Name Priority Date/Time Associated Diagnosis Comments Upper GI Endoscopy, Diagnostic (67733) 08/04/2024 9:30 AM EST Hepatic cirrhosis, unspecified hepatic cirrhosis type, unspecified whether ascites present UPPER GI ENDOSCOPY Routine 08/04/2024 9: 23 AM EST documented in this encounter Results * UPPER GI ENDOSCOPY (08/04/2024 9:23 AM EST) UPPER GI ENDOSCOPY [facility] Endoscopy Procedure Date: 08/04/2024 9:23 AM ? Patient Name: Telma Richter ? Date of : 1950 ? Age: 74 ? Order #: [id number] ? Instrument Name: [id number] ? Procedure: ? Upper GI endoscopy Indications: ? Cirrhosis rule out esophageal ? varices Providers: ? Jorge Willis, ? Luisa Lincoln Referring MD: ? Medicines: [...] AM EST Unknown GENERAL SURGICAL ORD ERABLES PROVATION documented in this encounter Visit Diagnoses Diagnosis Hepatic cirrhosis, unspecified hepatic cirrhosis type, unspecified whether ascites present documented in this encounter Administered Medications Inactive Administered Medications - up to 3 most recent administrations Medication Order MAR Action Action Date Dose Rate Site lactated ringers infusion 100 mL/hr, Intravenous, CONTINUOUS, Starting on Sat08/04/24 at 1045, Until Sat08/04/24 at 1114, Endoscopy (Day of Procedure) New Bag 08/04/2024 10:18 AM EST 100 mL/hr 100 mL/hr documented in this encounter Active and Recently Administered Medications Times are shown in EST. Continuous Medication Order 08/02/2024 08/03/2024 08/04/2024 lactated ringers infusion (CANCELED) 100 mL/hr, Intravenous, CONTINUOUS, Starting on 08/04/24 at 1045, Until Tu08/04/24 at 1114, Endoscopy (Day of Procedure) 1018 (New Bag - Prov ider: Anna Cisse RN) documented in this encounter Care Teams Recruiting Specialist Relationship Specialty Start Date End Date Horace Singer [place] [facility] [place] [address] PCP - General Internal Medicine 08/03/24 documented as of this encounter
--- OUTSIDE RECORDS SUMMARY | 2024-10-07 20:36 | XMS_ITS | Encounter Summary ---
Author Organization [facility] [place] [address] Care Team Providers Care Marine Extension Agent Name Role Phone Justino Lucia MD Primary Care Provider [phone] Reason for Visit * Reason Onset Date Comments Medication Refill 02/24/2024 Encounter Details Date Type Department Care Team (Late st Contact Info) Description 02/24/2024 Refill [place] [address] Candy Clifford MD [facility] DR NICHOLAS PERDOMO-[place] [address] Social History Tobacco Use Types [...] 9:00 AM EDT Laboratory Appointment Lab [address] [place] [address] 01/20/2025 9:30 AM EDT [place]oint[place] [address] Ana Ho MD [facility] [place] [address] 01/20/2025 11:00 AM EDT Office [place] [address] Ana Ho MD [facility] [place] [address] 01/20/2025 12:00 PM EDT Office [place] [address] Candy Clifford MD [facility] [address] [facility] PERDOM[facility] [address] documented as of this encounter Goals Goal Patient Goal Type Associated Problems Recent Progress Patient-Stated? Author movement Exercise On track(2021 11:16 AM EDT) No Pankaj Mcadams Note: Try gentle movement like chair yoga, t'ai chi and qigong. Health Vet Assistant will send hand-outs. Use resistance bands. Health Vet Assistant will request a set be mailed. Movement Exercise On track(2021 11:16 AM EDT) No Pankaj Mcadams Note: Look around town, senior center, gyms, for a class to participate in, bone builders or gentle stretching. Nutrition Lifestyle No Candy lCifford MD Note: Nutrition Goals updated today: 12/11/22 [...] and can't go back to sleep. Health Vet Assistant will send some to try. Tried apps but don't really like them as I like the quiet when going to sleep. [facility] 04/23 documented as of this encounter Visit Diagnoses Not on filedocumented in this encounter Care Teams Marine Extension Agent Relationship Specialty Start Date End Date Justino Lucia MD PCP - General Family Medicine 10/04/21 07/21/24 documented as of this encounter
--- OUTSIDE RECORDS SUMMARY | 2024-10-07 20:36 | XMS_ITS | Encounter Summary ---
Author Organization [facility] [place] [address] Care Team Providers Care Engine Repairer Name Role Phone Unavailable Primary Care Provider Unavailabl e Encounter Details Date Type Department Care Team (Late st Contact Info) Description 07/22/2024 Telephone [place] [phone] Jessica Mcgowan Social History Tobacco Use Types Packs/Day Years [...] encounter Miscellaneous Notes * Telephone Encounter - Jessica Mcgowan - 07/22/2024 4:06 PM EST Telma Richter [id number] Diagnosis/Indication: variceal screening Please review patient chart to confirm if [...] had a/an Upper Endoscopy before? Yes: Date 07/09/23 If yes, did you have any problems with the procedure (such as waking up during the procedure, pain or difficulties afterwards, etc.)? No What type of sedation was used: General Anesthesia (ASK ONLY FOR COLONOSCOPY PROCEDURES) Are you aware, or have you ever been told that you had a poor prep or failed prep with a previous colonoscopy? No If yes, assign the Extended MiraLAX Prep (ASK ONLY FOR COLONOSCOPY PROCEDURES) Do you have an ongoing history of constipation? (E.g., hard stools, >2 days without a bowel movement, straining or difficulty passing stool) No If yes, assign the Extended MiraLAX Prep Do you take any blood thinners or have you been diagnosed with a bleeding disorder that increases your risk of bleeding with procedures? No Do you have a Pacemaker or Defibrillator device? If yes, send pool message to Cardiology with patient information and date or procedure. No Do you have diabetes? If yes, call PCP/managing provider to discuss use of prep and any questions or concerns related to. No If yes, assign the Extended MiraLAX Prep Do you take any iron supplements or vitamins that contain iron? No Do you take a GLP-1 medication for diabetes and/or weight loss? All patients who say yes, regardless of procedure, must be on clear liquids day prior to procedure. If patient answers yes, you must note which medication and instruct to hold the medication prior to procedure for one dose. Brand names include Wegovy, Ozempic, Trulicity, Mounjaro, Zepbound, Rynelsus, Saxenda, Victoza, Byetta, Bydureon, Soliqua, Xultophy Yes, Ozempic Do you have a preference regarding the [...] during procedure, extreme confusion after, etc.) No Do you have a diagnosis of Obstructive Sleep Apnea that requires the use of a c- pap machine? No Do you use an oxygen tank at home? No Do you use a rescue inhaler more than twice per day? (COPD, severe asthma) No Do you experience breathing problems when you lay flat for a period of time? No Do you regularly take prescription opioid pain medications on a daily basis? (Includes oxycodone, Percocet, Suboxone, methadone, etc.) No If yes, assign the Extended MiraLAX Prep SCHEDULING CONFIRMATIONS: Please note any and all [...] NEW referral patient; skip this question if GI provider ordered the procedure.) No Is there any other information or concerns you would like to us to share with your care team in relation to your upcoming scheduled procedure? No You must have a responsible constitution party who will drive you to your procedure, stay on campus for the entire duration of your procedure, and drive you home from your procedure. Who will likely be your xm1 tank driver for the procedure? unsure *Please Verify the height and weight, and adjust if height and/or weight have changed* Estimated body mass index is 49.51 kg/m?? as calculated from the following: Height as of 05/22/24: 157.5 cm (5' 2). Weight as of an earlier encounter on 07/22/24: 122.8 kg (270 lb 11.2 oz). Age:74 y.o. documented in this encounter Plan of Treatment Upcoming Encounters Date Type Department Care Team (Late st Contact Info) Description 01/20/2025 9:00 AM EDT Laboratory Appointment Lab 3L [place] [phone] 01/20/2025 9:30 AM EDT [place] [address] Ana Ho MD [facility] [place] [address] 01/20/2025 11:00 AM EDT Office [place] [address] Ana Ho MD [facility] [place] [address] 01/20/2025 12:00 PM EDT Office Visit Weight Center at [facility] [place] [phone] Candy Clifford MD [facility] DR NICHOLAS PERDOM[place] [address] documented as of this encounter Goals Goal Patient Goal Type Associated Problems Recent Progress Patient-Stated? Author movement Exercise On track(2021 11:16 AM EDT) No Pankaj Mcadams Note: Try gentle movement like chair yoga, t'ai chi and qigong. Health Reserve Operator will send hand-outs. Use resistance bands. Health Reserve Operator will request a set be mailed. [...] opportunity to start with protein (cottage cheese, german yogurt, protein smoothies, chicken or chicken salad [...] and can't go back to sleep. Health Reserve Operator will send some to try. Tried apps but don't really like them as I like the quiet when going to sleep. [facility] 04/23 documented as of this encounter Visit Diagnoses Not on filedocumented in this encounter
--- OUTSIDE RECORDS SUMMARY | 2024-10-07 20:36 | XMS_ITS | Encounter Summary ---
Author Organization [facility] [place] [address] Care Team Providers Care Mold Blower Name Role Phone Horace Singer Primary Care [...] GI ENDOSCOPY (WRVU 2.09) Delfina Alamo MD [facility] [place] [address] [facility] Referral ID Status Reason Start Date Expiration Date Visits Re quested Visits Authorized [id number] 1 1 Encounter Details Date Type Department Care Team (Latest Contact Info) Description 08/04/2024 7:46 AM EST - 08/04/2024 11:14 AM EST Hospital Encounter [place] [address] Delfina Alamo MD [facility] [place] [address] Discharge Disposition: Home Social History Tobacco Use [...] the day after the procedure, use an jkbt-fhn-chjbaoy spray to numb your throat. Sucking on [...] occurs, please contact your Doctor. Please call [phone] before 8pm Mon-Fri with problems, questions or concerns. If you call after 8pm or on weekends, call the Hospital at [phone] and ask to speak to the Beekeeper Farmer allied health professional and the tomato pulper operator will contact that person for you. When should you call for help? Call [phone] anytime you think you may need emergency [...] any problems. Where can you learn more? [facility] View your After Visit Summary and more online at [email or web address] If you would like to provide feedback about your hospital experience, please call the Office of Patient and Family Relations at . If you have received this After Visit Summary in error, please immediately return it in person to the department, or notify the - Privacy Office by calling toll free at between the hours of 8AM and 5PM to arrange for our retrieval of the documents at no cost to you. Content Version: 12.2 ?? 2817-3472 [employer]. Care instructions adapted under license by [facility]. If you have questions about a medical condition or this instruction, always ask your healthcare professional. [employer] disclaims any warranty or liability for your [...] 9:00 AM EDT Laboratory Appointment Lab [address] [place] [address] 01/20/2025 9:30 AM EDT Appointment Ultrasound at [place] [phone] Ana Ho MD [facility] [place] [address] 01/20/2025 11:00 AM EDT Office Visit [place] [phone] Ana Ho MD [facility] [place] [address] 01/20/2025 12:00 PM EDT Office [place] [phone] Candy Clifford MD [facility] [place] [address] documented as of this encounter Goals Goal Patient Goal Type Associated Problems Recent Progress Patient-Stated? Author movement Exercise On track(2021 11:16 AM EDT) No Pankaj cMadams Note: Try gentle movement like chair yoga, t'ai chi and qigong. Health Ob Nurse will send hand-outs. Use resistance bands. Health Ob Nurse will request a set be mailed. Movement Exercise On track(2021 11:16 AM EDT) No Pankaj Mcadams Note: Look around town, [employer] [facility], gyms, for a class to participate [...] and can't go back to sleep. Health Ob Nurse will send some to try. Tried apps but don't really like them as I like the quiet when going to sleep. [facility] 04/23 documented as of this encounter Procedures Procedure Name Priority Date/Time Associated Diagnosis Comments Upper GI Endoscopy, Diagnostic (75477) 08/04/2024 9:30 AM EST Hepatic cirrhosis, unspecified hepatic cirrhosis type, unspecified whether ascites present UPPER GI ENDOSCOPY Routine 08/04/2024 9: 23 AM EST documented in this encounter Results * UPPER GI ENDOSCOPY (08/04/2024 9:23 AM EST) UPPER GI ENDOSCOPY [facility] Endoscopy Procedure Date: 08/04/2024 9:23 AM ? Patient Name: Telma Richter ? Date of : 1950 ? Age: 74 ? Order #: [id number] ? Instrument Name: [id number] ? Procedure: ? Upper GI endoscopy Indications: [...] infusion 100 mL/hr, Intravenous, CONTINUOUS, Starting on 08/04/24 at 1045, Until 08/04/24 at 1114, Endoscopy (Day of Procedure) New Bag 08/04/2024 10:18 AM EST 100 mL/hr 100 mL/hr documented in this encounter Active and Recently Administered Medications Times are shown in EST. Continuous Medication Order 08/02/2024 08/03/2024 08/04/2024 lactated ringers infusion (CANCELED) 100 mL/hr, Intravenous, CONTINUOUS, Starting on 08/04/24 at 1045, Until 08/04/24 at 1114, Endoscopy (Day of Procedure) 1018 (New Bag - Prov ider: Anna Cisse RN) documented in this encounter Care Teams Mold Blower Relationship Specialty Start Date End Date Horace Singer PA [address] [facility] [place] [address] PCP - General Internal Medicine 08/03/24 documented as of this encounter
--- OUTSIDE RECORDS SUMMARY | 2024-10-07 20:36 | XMS_ITS | Encounter Summary ---
Author Organization [facility] [place] [address] Care Team Providers Care Religious Healer Name Role Phone Justino Lucia MD Primary Care Provider [phone] Reason for Visit * Reason Onset Date Comments Prior Authorization 03/03/2024 Encounter Details Date Type Department Care Team (Late Contact Info) Description 03/03/2024 [place] [phone] Bettye Faust CCMA Prior Authorization Social History [...] 2:12 PM EDT PA Request received in [facility] for Ozempic (2 MG/DOSE) 8MG/3ML pen-injectors Gomez [id number] Routed to specialty pharmacy documented in this encounter Plan of Treatment Upcoming Encounters Date Type Department Care Team (Late st Contact Info) Description 01/20/2025 9:00 AM EDT Laboratory Appointment Lab 3L [facility] [place] [address] 01/20/2025 9:30 AM EDT [place] [address] Ana Ho MD [facility] [place] [address] 01/20/2025 11:00 AM EDT Office [place] [phone] Ana Ho MD [facility] [place] [address] 01/20/2025 12:00 PM EDT Office [place] [phone] Candy Clifford MD [facility] [address] [place] [address] documented as of this encounter Goals Goal Patient Goal Type Associated Problems Recent Progress Patient-Stated? Author movement Exercise On track(2021 11:16 AM EDT) No Pankaj Mcadams Note: Try gentle movement like chair yoga, t'ai chi and qigong. Health Contact Center Representative will send hand-outs. Use resistance bands. Health Contact Center Representative will request a set be mailed. [...] opportunity to start with protein (cottage cheese, malay yogurt, protein smoothies, chicken or chicken salad [...] and can't go back to sleep. Health Contact Center Representative will send some to try. Tried apps but don't really like them as I like the quiet when going to sleep. [facility] 04/23 documented as of this encounter Visit Diagnoses Not on filedocumented in this encounter Care Teams Religious Healer Relationship Specialty Start Date End Date Justino Lucia MD PCP - General Family Medicine 10/04/21 07/21/24 documented as of this encounter
--- OUTSIDE RECORDS SUMMARY | 2024-10-07 20:36 | XMS_ITS | Encounter Summary ---
Author Organization [facility] Address [facility] [place] [address] Care Team Providers Care Mannequin Mold Maker Name Role Phone Justino Lucia MD Primary Care Provider [phone] Encounter Details Date Type Department Care Team ([facility] st Contact Info) Description 02/18/2024 Notes [place] [phone] Huong Gerber [facility] Social History Tobacco Use Types Packs/Day Years [...] of this encounter Progress Notes * Huong Gerebr [facility] - 02/18/2024 9:58 AM EDT [facility] Medication Assistance Program (MAP) -Date Prescription(s) Received: 10/06/2023 -Date Medication(s) received: 02/14/2024 -Medication(s) Received: Ozempic 8mg/3ml -Quantity received: 12ml -Senior Software Development Engineer: Destinee Nordisk -Status of prescription: shipped -Date Mailed/Picked up: 02/26/2024 -Address Mailed to: [address] [place] [address], [address] -Tracking No.: [id number] Electronically signed by Génesis Blackwell [facility] at 03/02/2024 11:47 AM EDT documented in this encounter Plan of Treatment Upcoming Encounters Date Type Department Care Team (Late st Contact Info) Description 01/20/2025 9:00 AM EDT Laboratory Appointment Lab [address] [place] [address] 01/20/2025 9:30 AM EDT Appointment [place] [address] Ana Ho MD [facility] [place] [address] 01/20/2025 11:00 AM EDT Office Visit [place] [phone] Ana Ho MD [facility] [place] [address] 01/20/2025 12:00 PM EDT Office [place] [address] Candy Clifford MD [facility] DR [facility] [place] [address] documented as of this encounter Goals Goal Patient Goal Type Associated Problems Recent Progress Patient-Stated? Author movement Exercise On track(2021 11:16 AM EDT) No Pankaj Mcadams Note: Try gentle movement like chair yoga, t'ai chi and qigong. Health Combination Welder will send hand-outs. Use resistance bands. Health Combination Welder will request a set be mailed. Movement [...] opportunity to start with protein (cottage cheese, syriac yogurt, protein smoothies, chicken or chicken salad [...] and can't go back to sleep. Health Combination Welder will send some to try. Tried apps but don't really like them as I like the quiet when going to sleep. [facility] 04/23 documented as of this encounter Visit Diagnoses Not on filedocumented in this encounter Care Teams Mannequin Mold Maker Relationship Specialty Start Date End Date Justino Lucia MD PCP - General Family Medicine 10/04/21 07/21/24 documented as of this encounter
--- OUTSIDE RECORDS SUMMARY | 2024-10-07 20:36 | XMS_ITS | Encounter Summary ---
Author Organization [facility] [place] [address] Care Team Providers Care Reed Repairer Name Role Phone Justino Lucia MD Primary Care Provider [phone] Encounter Details Date Type Department Care Team (Latest Contact Info) Description 07/21/2024 Travel Social History Tobacco Use Types Packs/Day [...] 9:00 AM EDT Laboratory Appointment Lab [address] [place] [phone] 01/20/2025 9:30 AM EDT [place]ointment [place] [address] Ana Ho MD [facility] [place] [address] 01/20/2025 11:00 AM EDT Office Visit [place] [phone] Ana Ho MD [facility] [place] [address] 01/20/2025 12:00 PM EDT Office [place] [address] Candy Clifford MD [facility] [address] [facility] [address] documented as of this encounter Goals Goal Patient Goal Type Associated Problems Recent Progress Patient-Stated? Author movement Exercise On track(2021 11:16 AM EDT) No Pankaj Mcadams Note: Try gentle movement like chair yoga, t'ai chi and qigong. Health Assistant Fitness Manager will send hand-outs. Use resistance bands. Health Assistant Fitness Manager will request a set be mailed. Movement Exercise On track(2021 11:16 AM EDT) No Pankaj Mcadams Note: Look around town, [employer] [facility], gyms, for a class to participate [...] for sample meal [facility] Keep food log until you are seen by the dieititian. Record everything you eat or drink, include time eaten and any emotional changes that are significant. relaxation/sleep Lifestyle No Pankaj Mcadams Note: Try some meditation/relaxation apps when I wake in the night and can't go back to sleep. Health Assistant Fitness Manager will send some to try. Tried apps but don't really like them as I like the quiet when going to sleep. [facility] 04/23 documented as of this encounter Visit Diagnoses Not on filedocumented in this encounter Care Teams Reed Repairer Relationship Specialty Start Date End Date Justino Lucia MD PCP - General Family Medicine 10/04/21 07/21/24 documented as of this encounter
--- OUTSIDE RECORDS SUMMARY | 2024-10-07 20:37 | XMS_ITS | Encounter Summary ---
Author Organization [facility] [place] [address] Care Team Providers Care Drywall Stripper Helper Name Role Phone Justino Lucia MD Primary Care Provider [phone] Reason for Visit * Reason Onset Date Comments Prior Authorization 09/16/2023 Ozempic (2 M G/DOSE) 8MG/3ML pen-injectors Encounter Details Date Type Department Care Team (Late st Contact Info) Description 09/16/2023 Telephone [place] [address] Debby Camacho CMA Prior Authorization (Ozempic (2 [...] PA Outcome: PA Denial Medication [place] [address] DENIED: Ozempic Additional Information from Insurance: * Telephone Encounter - Debby Camacho CMA - 09/16/2023 12:43 PM EST PA Submitted Submitted Date: Date Submitted: 09/16/2023 Medication Prior Authorization Patient: Telma Richter Patient : 1950 Insurance Company: [employer] Sent via: [facility] Gomez: [id number] Physician: Candy Clifford MD Medication Requested: semaglutide [...] 9:00 AM EDT Laboratory Appointment Lab [address] [place] [phone] 01/20/2025 9:30 AM EDT [place] [phone] Ana Ho MD [facility] [place] [address] 01/20/2025 11:00 AM EDT Office [place] [phone] Ana Ho MD [facility] [place] [address] 01/20/2025 12:00 PM EDT Office [place] [address] Candy Clifford MD [facility] DR [facility] [address] documented as of this encounter Goals Goal Patient Goal Type Associated Problems Recent Progress Patient-Stated? Author movement Exercise On track(2021 11:16 AM EDT) No Pankaj Mcadams Note: Try gentle movement like chair yoga, t'ai chi and qigong. Health Disability Case Manager will send hand-outs. Use resistance bands. Health Disability Case Manager will request a set be mailed. [...] and can't go back to sleep. Health Disability Case Manager will send some to try. Tried apps but don't really like them as I like the quiet when going to sleep. [facility] 04/23 documented as of this encounter Visit Diagnoses Not on filedocumented in this encounter Care Teams Drywall Stripper Helper Relationship Specialty Start Date End Date Justino Lucia MD PCP - General Family Medicine 10/04/21 07/21/24 documented as of this encounter
--- OUTSIDE RECORDS SUMMARY | 2024-10-07 20:37 | XMS_ITS | Encounter Summary ---
Author Organization [facility] Address [facility] [place] [address] Care Team Providers Care Director Credit Risk Name Role Phone Justino Lucia MD Primary Care Provider [phone] Encounter Details Date Type Department Care Team (Late st Contact Info) Description 10/01/2023 Telephone [place] [phone] Candy Clifford MD [facility] DR [facility] [address] Social History Tobacco Use Types Packs/Day Years [...] the provider send an authorization request for Wekatharinevy. * Telephone Encounter - Consuelo Harris RN [...] leave a message: yes Ok to send [facility] message: yes Offered Appointment: N/A Message: N/A Call made to assistant corporate secretary or nurse Y/N N/A Pager: Y/N N/A documented in this encounter Plan of Treatment Upcoming Encounters Date Type Department Care Team (Late st Contact Info) Description 01/20/2025 9:00 AM EDT Laboratory Appointment Lab [address] [address] 01/20/2025 9:30 AM EDT Appointment Ultrasound at [address] Ana Ho MD [facility] [place] [address] 01/20/2025 11:00 AM EDT Office Visit Gastroenterology at [place] [phone] Ana Ho MD [facility] [place] [address] 01/20/2025 12:00 PM EDT Office [place] [address] Candy Clifford MD [facility] [address] documented as of this encounter Goals Goal Patient Goal Type Associated Problems Recent Progress Patient-Stated? Author movement Exercise On track(2021 11:16 AM EDT) No Pankaj Mcadams Note: Try gentle movement like chair yoga, t'ai chi and qigong. Health Executive Manager will send hand-outs. Use resistance bands. Health Executive Manager will request a set be mailed. [...] can't go back to sleep. Health Executive Manager will send some to try. Tried apps but don't really like them as I like the quiet when going to sleep. [facility] 04/23 documented as of this encounter Visit Diagnoses Not on filedocumented in this encounter Care Teams Director Credit Risk Relationship Specialty Start Date End Date Justino Lucia MD PCP - General Family Medicine 10/04/21 07/21/24 documented as of this encounter
--- OUTSIDE RECORDS SUMMARY | 2024-10-07 20:37 | XMS_ITS | Encounter Summary ---
Author Organization [facility] Address [facility] [place] [address] Care Team Providers Care School Admissions Representative Name Role Phone Justino Lucia MD Primary Care Provider [phone] Encounter Details Date Type Department Care Team (Latest Contact Info) Description 02/11/2023 2:00 PM EDT TH Visit (TeleHealth) [place] [phone] Kay Tao, PhD [facility] DR [facility] [place] [address] Class 3 severe obesity with serious comorbidity [...] 01/20/2025 9:00 AM EDT Laboratory Appointment Lab [address] [phone] 01/20/2025 9:30 AM EDT [place] [phone] Ana Ho MD [facility] [place] [address] 01/20/2025 11:00 AM EDT Office [place] [phone] Ana Ho MD [facility] [place] [address] 01/20/2025 12:00 PM EDT Office [place] [phone] Candy Clifford MD [facility] DR [facility] [address] documented as of this encounter Goals Goal Patient Goal Type Associated Problems Recent Progress Patient-Stated? Author movement Exercise On track(2021 11:16 AM EDT) No Pankaj Mcadams Note: Try gentle movement like chair yoga, t'ai chi and qigong. Health L Tacker will send hand-outs. Use resistance bands. Health L Tacker will request a set be mailed. Movement [...] for sample meal [facility] in [facility] Keep food log until you are seen by the dieititian. Record everything you eat or drink, include time eaten and any emotional changes that are significant. relaxation/sleep Lifestyle No Pankaj Mcadams Note: Try some meditation/relaxation apps when I wake in the night and can't go back to sleep. Health L Tacker will send some to try. Tried apps but don't really like them as I like the quiet when going to sleep. [facility] 04/23 documented as of this encounter Visit Diagnoses Diagnosis Class 3 severe obesity with serious comorbidity and body mass index (BMI) of 50.0 to 59.9 in adult, unspecified obesity type documented in this encounter Care Teams School Admissions Representative Relationship Specialty Start Date End Date Justino Lucia MD PCP - General Family Medicine 10/04/21 07/21/24 documented as of this encounter
--- OUTSIDE RECORDS SUMMARY | 2024-10-07 20:37 | XMS_ITS | Encounter Summary ---
Author Organization [facility] [place] [address] Care Team Providers Care Ton Container Filler Name Role Phone Justino Lucia MD Primary Care Provider [phone] Encounter Details Date Type Department Care Team [...] 9:00 AM EDT Laboratory Appointment Lab [address]L [place] [phone] 01/20/2025 9:30 AM EDT [place] [address] Ana Ho MD [facility] [place] [address] 01/20/2025 11:00 AM EDT Office [place] [phone] Ana Ho MD [facility] [place] [address] 01/20/2025 12:00 PM EDT Office [place] [address] Candy Clifford MD [facility] [address] [facility] [address] documented as of this encounter Goals Goal Patient Goal Type Associated Problems Recent Progress Patient-Stated? Author movement Exercise On track(2021 11:16 AM EDT) No Pankaj Mcadams Note: Try gentle movement like chair yoga, t'ai chi and qigong. Health Biometric Screener will send hand-outs. Use resistance bands. Health Biometric Screener will request a set be mailed. Movement Exercise On track(2021 11:16 AM EDT) No Pankaj Mcadams Note: Look around town, [employer] [facility], gyms, for a class to participate [...] for sample meal ideas in the [facility] Keep food log until you are seen by the dieititian. Record everything you eat or drink, include time eaten and any emotional changes that are significant. relaxation/sleep Lifestyle No Pankaj Mcadams Note: Try some meditation/relaxation apps when I wake in the night and can't go back to sleep. Health Biometric Screener will send some to try. Tried apps but don't really like them as I like the quiet when going to sleep. [facility] 04/23 documented as of this encounter Visit Diagnoses Not on filedocumented in this encounter Care Teams Ton Container Filler Relationship Specialty Start Date End Date Justino Lucia MD PCP - General Family Medicine 10/04/21 07/21/24 documented as of this encounter
--- OUTSIDE RECORDS SUMMARY | 2024-10-07 20:37 | XMS_ITS | Encounter Summary ---
Author Organization [facility]ly [facility] [place] [address] Care Team Providers Care Rotary Planer Set Up Operator Name Role Phone Justino Lucia MD Primary Care Provider [phone] Reason for Visit * Reason Comments Medication Refill Encounter Details Date Type Department Care Team (Late st Contact Info) Description 08/03/2023 [place] [address] Candy Clifford MD [facility] [address] Insulin resistance; Prediabetes Social History Tobacco Use [...] 9:00 AM EDT Laboratory Appointment Lab [address] [place] [address] 01/20/2025 9:30 AM EDT [place] [address] Ana Ho MD [facility] [place] [address] 01/20/2025 11:00 AM EDT Office [place] [address] Ana Ho MD [facility] [place] [address] 01/20/2025 12:00 PM EDT Office [place] [address] Candy Clifford MD [facility] [address] documented as of this encounter Goals Goal Patient Goal Type Associated Problems Recent Progress Patient-Stated? Author movement Exercise On track(2021 11:16 AM EDT) No Pankaj Mcadams Note: Try gentle movement like chair yoga, t'ai chi and qigong. Health Abstract Checker will send hand-outs. Use resistance bands. Health Abstract Checker will request a set be mailed. Movement Exercise On track(2021 11:16 AM EDT) No Pankaj Mcadams Note: Look around town, senior center, gyms, for a class to participate in, bone builders or gentle stretching. Nutrition Lifestyle No Cadny Clifford MD Note: Nutrition Goals updated today: 12/11/22 TF 1. Focus on reaching adequate protein intake - aim for 60-80 grams (handout attached in after visit summary) 2. Consider the 3 eating events per day to be an opportunity to start with protein (cottage cheese, bolivian yogurt, protein smoothies, chicken or chicken salad [...] changes that are significant. relaxation/sleep Lifestyle No Paknaj Mcadams Note: Try some meditation/relaxation apps when I wake in the night and can't go back to sleep. Health Abstract Checker will send some to try. Tried apps but don't really like them as I like the quiet when going to sleep. [facility] 04/23 documented as of this encounter Visit Diagnoses Diagnosis Insulin resistance Dysmetabolic Syndrome X Prediabetes Other abnormal glucose documented in this encounter Care Teams Rotary Planer Set Up Operator Relationship Specialty Start Date End Date Justino Lucia MD PCP - General Family Medicine 10/04/21 07/21/24 documented as of this encounter
--- OUTSIDE RECORDS SUMMARY | 2024-10-07 20:37 | XMS_ITS | Encounter Summary ---
Author Organization [facility] [place] [address] Care Team Providers Care Microbiology Quality Control Technician Name Role Phone Justino Lucia MD Primary Care Provider [phone] Encounter Details Date Type Department Care Team [...] 9:00 AM EDT Laboratory Appointment Lab [address] [place] [phone] 01/20/2025 9:30 AM EDT [place] [address] Ana Ho MD [facility] [place] [address] 01/20/2025 11:00 AM EDT Office [place] [phone] Ana Ho MD [facility] [place] [address] 01/20/2025 12:00 PM EDT Office [place] [address] Candy Clifford MD [facility] DR [facility] [address] documented as of this encounter Goals Goal Patient Goal Type Associated Problems Recent Progress Patient-Stated? Author movement Exercise On track(2021 11:16 AM EDT) No Pankaj Mcadams Note: Try gentle movement like chair yoga, t'ai chi and qigong. Health Welder Production Line Gas will send hand-outs. Use resistance bands. Health Welder Production Line Gas will request a set be mailed. Movement Exercise On track(2021 11:16 AM EDT) No Pankaj Mcadams Note: Look around town, [employer] [facility], gyms, for a class to participate in, bone builders or gentle stretching. Nutrition Lifestyle No Candy Clifford MD Note: Nutrition Goals updated today: 12/11/22 TF 1. Focus on reaching adequate protein intake - aim for 60-80 grams (handout attached in after visit summary) 2. Consider the 3 eating events per day to be an opportunity to start with protein (cottage cheese, indonesian yogurt, protein smoothies, chicken or chicken salad [...] can't go back to sleep. Health Welder Production Line Gas will send some to try. Tried apps but don't really like them as I like the quiet when going to sleep. [facility] 04/23 documented as of this encounter Visit Diagnoses Not on filedocumented in this encounter Care Teams Microbiology Quality Control Technician Relationship Specialty Start Date End Date Justino Lucia MD PCP - General Family Medicine 10/04/21 07/21/24 documented as of this encounter
--- OUTSIDE RECORDS SUMMARY | 2024-10-07 20:37 | XMS_ITS | Encounter Summary ---
Author Organization [facility] Address [facility] [place] [address] Care Team Providers Care Floorworker Lasting Name Role Phone Justino Lucia MD Primary Care Provider [phone] Reason for Referral * Diagnostic Test (Routine) - Closed Specialty Diagnoses / Procedures Referred By Contac t Referred To Contact Radiology Diagnoses Hepatic cirrhosis, unspecified hepatic cirrhosis type, unspecified whether ascites present Procedures CT Abdomen w Contrast Glenn Cardoso PA [address] [place] [address] [facility] [place] [address] Referral ID Status Reason Start Date Expiration Date V isits Requested Visits Authorized [id number] Closed Specialty Service Requested 01/01/2023 07/04/2024 1 1 Reason for Visit * Diagnostic Test (Routine) - Closed Specialty Diagnoses / Procedures Referred By Contac t Referred To Contact Radiology Diagnoses Hepatic cirrhosis, unspecified hepatic cirrhosis type, unspecified whether ascites present Procedures CT Abdomen w Contrast Glenn Cardoso PA [address] [place] [address] [facility] [place] [address] Referral ID Status Reason Start Date Expiration Date V isits Requested Visits Authorized [id number] Closed Specialty Service Requested 01/01/2023 07/04/2024 1 1 Encounter Details Date Type Department Care Team (Latest Contact Info) Description 07/04/2023 7:58 AM EDT - 07/04/2023 11:59 PM EDT Hospital Encounter [place] [facility] [address] Rea Hickey MD [facility] [place] [address] Hepatic cirrhosis, unspecified hepatic cirrhosis type, unspecified [...] 9:00 AM EDT Laboratory Appointment Lab [address] [place] [address] 01/20/2025 9:30 AM EDT Appointment [place] [phone] Ana Ho MD [facility] [place] [address] 01/20/2025 11:00 AM EDT Office Visit [place] [phone] Ana Ho MD [facility] [place] [address] 01/20/2025 12:00 PM EDT Office [place] [phone] Candy Clifford MD [facility] DR [facility] [address] documented as of this encounter Goals Goal Patient Goal Type Associated Problems Recent Progress Patient-Stated? Author movement Exercise On track(2021 11:16 AM EDT) No Pankaj Mcadams Note: Try gentle movement like chair yoga, t'ai chi and qigong. Health Preparation Operator will send hand-outs. Use resistance bands. Health Preparation Operator will request a set be mailed. [...] and can't go back to sleep. Health Preparation Operator will send some to try. Tried apps but don't really like them as I like the quiet when going to sleep. [facility] 04/23 documented as of this [...] who have questions please contact the health tire care manager that requested your imaging first. ? Electronically signed by: Lashawn Hendrickson MD, [facility] ??([phone]), at 07/04/2023 3:08 PM Narrative 07/04/2023 3:08 [...] mLs documented in this encounter Care Teams Floorworker Lasting Relationship Specialty Start Date End Date Justino Lucia MD PCP - General Family Medicine 10/04/21 07/21/24 documented as of this encounter
--- OUTSIDE RECORDS SUMMARY | 2024-10-07 20:37 | XMS_ITS | Encounter Summary ---
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 due late 2022 Procedures PRO UPPER GI ENDOSCOPY, DIAGNOSTIC PRO UPPER GI ENDOSCOPY, BIOPSY PRO UP GI ENDOSCOPY, REMV TUMOR, SNARE PRO ANESTH, UGI ENDOSCOPY NOS EGD, UPPER GI ENDOSCOPY (WRVU 2.09) Julian Jones MD [facility] [place] [address] [facility] Referral ID Status Reason Start Date Expiration Date Visits Re quested Visits Authorized [id number] 1 1 Encounter Details Date Type Department Care Team (Latest Contact Info) Description 06/18/2023 10:33 AM EDT - 06/18/2023 12:40 PM EDT Hospital Encounter [place] [address] Julian Jones MD [facility] [place] [address] Discharge Disposition: Home Social History Tobacco Use [...] 9:00 AM EDT Laboratory Appointment Lab [address] [place] [address] 01/20/2025 9:30 AM EDT Appointment Ultrasound at [place] [phone] Ana Ho MD [facility] [place] [address] 01/20/2025 11:00 AM EDT Office [place] [phone] Ana Ho MD [facility] [place] [address] 01/20/2025 12:00 PM EDT Office [place] [address] Candy Clifford MD [facility] DR [facility] [address] documented as of this encounter Goals Goal Patient Goal Type Associated Problems Recent Progress Patient-Stated? Author movement Exercise On track(2021 11:16 AM EDT) No Pankaj Mcadams Note: Try gentle movement like chair yoga, t'ai chi and qigong. Health Automotive Finance Manager will send hand-outs. Use resistance bands. Health Automotive Finance Manager will request a set be [...] opportunity to start with protein (cottage cheese, cape verdean yogurt, protein smoothies, chicken or chicken salad [...] for sample meal ideas in the [employer] [facility] Keep food log until you are seen by the dieititian. Record everything you eat or drink, include time eaten and any emotional changes that are significant. relaxation/sleep Lifestyle Pankaj Russ Note: Try some meditation/relaxation apps when I wake in the night and can't go back to sleep. Health Automotive Finance Manager will send some to try. Tried apps but don't really like them as I like the quiet when going to sleep. [facility] 04/23 documented as of this encounter Procedures Procedure Name Priority Date/Time Associated Diagnosis Comments Upper GI Endoscopy, Diagnostic (01922) 06/18/2023 11:28 AM EDT Hepatic cirrhosis, unspecified hepatic cirrhosis type, unspecified whether ascites present Portal hypertension UPPER GI ENDOSCOPY Routine 06/18/2023 11 :21 AM EDT documented in this encounter Results * UPPER GI ENDOSCOPY (06/18/2023 11:21 AM EDT) UPPER GI ENDOSCOPY [facility] Endoscopy Procedure Date: 06/18/2023 11:21 AM ? Patient Name: Telma Rober ? Date of : 1950 ? Age: 73 ? Order #: [id number] ? Instrument Name: [id number] ? Procedure: ? Upper GI endoscopy Indications: ? Pt with cirrhosis and known small ? gastric varices r/o esophageal ? varices Providers: ? Julian Jones MD, Carlos Camacho ? , RN, Anna James MD: ?Justino Raser Medicines: ? See the Anesthesia note for [...] CRNA) documented in this encounter Care Teams Sand And Gravel Plant Operator Relationship Specialty Start Date End Date Justino Lucia MD PCP - General Family Medicine 10/04/21 07/21/24 documented as of this encounter
--- OUTSIDE RECORDS SUMMARY | 2024-10-07 20:37 | XMS_ITS | Encounter Summary ---
Author Organization [facility] [place] [address] Care Team Providers Care Freelance Recruiter Name Role Phone Justino Lucia MD Primary Care Provider [phone] Encounter Details Date Type Department Care Team (Late st Contact Info) Description 08/27/2023 Telephone [place] [address] Donna Almonte Social History Tobacco Use Types [...] 9:00 AM EDT Laboratory Appointment Lab [address] [place] [phone] 01/20/2025 9:30 AM EDT Appointment Ultrasound at [place] [phone] Ana Ho MD [facility] [place] [address] 01/20/2025 11:00 AM EDT Office Visit Gastroenterology at [place] [phone] Ana Ho MD [facility] [place] [address] 01/20/2025 12:00 PM EDT Office Visit Weight Center at [place] [phone] Candy Clifford MD [facility] [place] [address] documented as of this encounter Goals Goal Patient Goal Type Associated Problems Recent Progress Patient-Stated? Author movement Exercise On track(2021 11:16 AM EDT) No Pankaj Mcadams Note: Try gentle movement like chair yoga, t'ai chi and qigong. Health Spoon Maker will send hand-outs. Use resistance bands. Health Spoon Maker will request a set be mailed. [...] for sample meal ideas in the [employer] [facility] Keep food log until you are seen by the dieititian. Record everything you eat or drink, include time eaten and any emotional changes that are significant. relaxation/sleep Lifestyle No Pankaj Mcadams Note: Try some meditation/relaxation apps when I wake in the night and can't go back to sleep. Health Spoon Maker will send some to try. Tried apps but don't really like them as I like the quiet when going to sleep. [facility] 04/23 documented as of this encounter Visit Diagnoses Not on filedocumented in this encounter Care Teams Freelance Recruiter Relationship Specialty Start Date End Date Justino Lucia MD PCP - General Family Medicine 10/04/21 07/21/24 documented as of this encounter
--- OUTSIDE RECORDS SUMMARY | 2024-10-07 20:37 | XMS_ITS | Encounter Summary ---
Author Organization [facility] [place] [address] Care Team Providers Care Mechanical Development Engineer Name Role Phone Justino Lucia MD Primary Care Provider [phone] Reason for Visit * Reason Onset Date Comments Prior Authorization 10/03/2023 Ozempic Encounter Details Date Type Department Care Team (Late Contact Info) Description 10/03/2023 Telephone [place] [address] Pia Hernandez LNA Prior Authorization (Ozempic) Social [...] to Speciality Pharmacy. Cover My Meds Gomez: [id number] [employer] Electronic Prior Authorization Request Form ID# [id number] documented in this encounter Plan of Treatment Upcoming Encounters Date Type Department Care Team (Late Contact Info) Description 01/20/2025 9:00 AM EDT Laboratory Appointment Lab [address] [place] [address] 01/20/2025 9:30 AM EDT Appointment Ultrasound at [place] [phone] Ana Ho MD [facility] [place] [address] 01/20/2025 11:00 AM EDT Office Visit [place] [phone] Ana Ho MD [facility] [place] [address] 01/20/2025 12:00 PM EDT Office [place] [address] Candy Clifford MD [facility] [address] [place] [address] documented as of this encounter Goals Goal Patient Goal Type Associated Problems Recent Progress Patient-Stated? Author movement Exercise On track(2021 11:16 AM EDT) No Pankaj Mcadams Note: Try gentle movement like chair yoga, t'ai chi and qigong. Health Sheetmetal Patternmaker will send hand-outs. Use resistance bands. Health Sheetmetal Patternmaker will request a set be mailed. Movement [...] opportunity to start with protein (cottage cheese, equatorial guinean yogurt, protein smoothies, chicken or chicken [...] and can't go back to sleep. Health Sheetmetal Patternmaker will send some to try. Tried apps but don't really like them as I like the quiet when going to sleep. [facility] 04/23 documented as of this encounter Visit Diagnoses Not on filedocumented in this encounter Care Teams Mechanical Development Engineer Relationship Specialty Start Date End Date Justino Lucia MD PCP - General Family Medicine 10/04/21 07/21/24 documented as of this encounter
--- OUTSIDE RECORDS SUMMARY | 2024-10-07 20:37 | XMS_ITS | Encounter Summary ---
Author Organization [facility] [place] [address] Care Team Providers Care Promotions Assistant Sales Marketing Name Role Phone Justino Lucia MD Primary Care Provider [phone] Encounter Details Date Type Department Care Team (Latest Contact Info) Description 08/01/2023 4:30 PM EST TH Visit (TeleHealth) [place] [phone] Ana Ho MD [facility] [place] [address] Hepatic cirrhosis, unspecified hepatic cirrhosis type, unspecified [...] as of this encounter Progress Notes * Ana Ho MD - 08/01/2023 4:30 PM EST Gastroenterology and Hepatology Follow Up Note Patient: Sherron Richter Sex: female : 1950 Provider: Glenn Cardoso PA-C PCP: Justino Lucia MD LIVER HISTORY Lives with son and grandchildren Cirrhosis, 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 -once in a while [...] qAM, then BID prn -Obtain OSH colonoscopy ([facility]) to review negative colon biopsies; consider repeat flex sig to evaluate for microscopic colitis if unable to find -Continue follow-up with [facility] on semaglutide. No med adjustments necessary. -Continue [...] today. Ana Ho MD Gastroenterology and Hepatology 07/31/2023 5:08 PM Pager # [phone] documented in this encounter Plan of Treatment Upcoming Encounters Date Type Department Care Team (Late st Contact Info) Description 01/20/2025 9:00 AM EDT Laboratory Appointment Lab [address] [place] [phone] 01/20/2025 9:30 AM EDT [place] [address] Ana Ho MD [facility] [place] [address] 01/20/2025 11:00 AM EDT Office [place] [phone] Ana Ho MD [facility] [place] [address] 01/20/2025 12:00 PM EDT Office [place] [phone] Candy Clifford MD [facility] DR [facility]ICHOL[facility] PERDOM[place] [address] documented as of this encounter Goals Goal Patient Goal Type Associated Problems Recent Progress Patient-Stated? Author movement Exercise On track(2021 11:16 AM EDT) No Pankaj Mcadams Note: Try gentle movement like chair yoga, t'ai chi and qigong. Health Supervisor Fish Processing will send hand-outs. Use resistance bands. Health Supervisor Fish Processing will request a set be mailed. Movement [...] can't go back to sleep. Health Supervisor Fish Processing will send some to try. Tried apps but don't really like them as I like the quiet when going to sleep. [facility] 04/23 documented as of this encounter Results * Comprehensive metabolic panel (non-fasting) (01/17/2024 9:10 AM EDT) [facility] Glucose 92 65 - 199 mg/dL [facility] Comment:Diabetes: >=200 mg/d L plus symptoms Blood Urea Nitrogen 11 8 - 18 mg/dL [facility] Creatinine 0.72 0.70 - 1.20 mg/dL [facility] Sodium 144 135 - 145 mmol/L [facility] Potassium 4.2 3.5 - 5.0 mmol/L [facility] Comment: Please note: ??Patients with WBC >100,000 may have falsely elevated Potassium levels. ??For accurate Potassium quantification in these patients send serum separator tube (gold top) for subsequent determinations. ??Contact the Clinical Chemistry Laboratory if there are any questions. Chloride 106 98 - 107 mmol/L [facility] Carbon Dioxide 29 22 - 31 mmol/L [facility] Anion Gap 9 5 - 15 mmol/L [facility] Calcium 8.8 8.5 - 10.5 mg/dL [facility] Protein, Total 6.7 6.1 - 8.0 g/dL [facility] Albumin 3.7 3.2 - 5.2 g/dL [facility] Aspartate Aminotransferase 23 0 - 30 unit/L [facility] Alanine Aminotransferase 14 0 - 30 unit/L [facility] Alkaline Phosphatase 84 35 - 105 unit/L [facility] Bilirubin, Total 1.1 0.2 - 1.3 mg/dL [facility] Est Glomerular Filtration Rate 89 >=60 mL/min/1. 73 m?? [facility] Comment: This patient's estimated [...] In Lab Ana Ho MD CHEMISTRY ORDERABLES Performing Organization Address [facility] de Phone Number [facility] [place] [address] * (ABNORMAL) Prothrombin Time (01/17/2024 9:10 AM EDT) Pathologist [facility] Prothrombin Time 13.4(H) 9.4 - 12.5 sec [facility] International Normalization Ratio 1.2 [facility] Comment: An INR <2.0 [...] MD HEMATOLOGY ORDERABLE S Performing Organization Address [facility] Co de Phone Number [facility] [place] [address] * US Abdomen Limited Hepatology Protocol (01/17/2024 8:43 AM EDT) Pathologist [facility] WORKSTATION ID [id number] [facility] Anatomical Region Laterality Modality Abdomen Ultrasound 01/17/2024 [...] ascites. Electronically signed by: Roque Kohler MD, [facility] ([phone]), at 01/17/2024 8:53 AM Thank you for letting us participate in the care of this patient. If you are a health care provider and have any questions regarding this report, please contact the number above. For patients who have questions, please contact the health career based intervention coordinator that requested your imaging first. ? Roque Kohler, Physician Electronically Signed Final Report ?? 01/17/2024 09:01 am Narrative 01/17/2024 9:01 AM EDT Abdominal ? (Signed Final 01/17/2024 09:01 am) PATIENT INFO: ID #: ? [id number] ?: ??[birth year] (73 yrs)(F) Name: ? SHERRON M GRIFFIN ?Visit Date: 01/17/2024 08:46 am PERFORMED BY: Attending: ?Roque Kohler MD Resident: ? Jared Saunders DO Performed By: ? Brayan Reyna RDMS Referred By: ?ANA HO Location: ? [place] SERVICE(S) PROVIDED: [facility] - Hepatology Protocol - Abdominal ?[id number] Limited Survey Single Organ or Quadrant - [id number] INDICATIONS: HCC screenig, history cirrhosis COMPARISON: US: [...] 01/17/2024 09:01 am) PATIENT INFO: ID #: [id number] : [birth year] (73 yrs)(F) Name: SHERRON RICHTER Visit Date: 01/17/2024 08:46 am PERFORMED BY: Attending: Roque Kohler MD Resident: Jared Saunders DO Performed By: Brayan Reyna RDMS Referred By: ANA HO Location: [place] [facility] Protocol - Abdominal 33661 Limited Survey Single Organ or Quadrant - [id number] INDICATIONS: HCC screenig, history cirrhosis COMPARISON: US: [...] have questions, please contact the health career based intervention coordinator that requested your imaging first. Roque Kohler, Physician Electronically Signed Final Report 01/17/2024 09:01 am Ana Ho MD IMG US GEN ORDERABLE S documented in this encounter Visit Diagnoses Diagnosis Hepatic cirrhosis, unspecified hepatic cirrhosis type, unspecified whether ascites present- Primary Diarrhea, unspecified type Hepatic cirrhosis, unspecified hepatic cirrhosis type, unspecified whether ascites present documented in this encounter Care Teams Promotions Assistant Sales Marketing Relationship Specialty Start Date End Date Justino Lucia MD PCP - General Family Medicine 10/04/21 07/21/24 documented as of this encounter
--- OUTSIDE RECORDS SUMMARY | 2024-10-07 20:37 | XMS_ITS | Encounter Summary ---
Author Organization [facility] Address [facility] [place] [address] Care Team Providers Care Office Machine Servicer Apprentice Name Role Phone Justino Lucia MD Primary Care Provider [phone] Encounter Details Date Type Department Care Team (Late st Contact Info) Description 10/21/2023 Telephone [place] [address] Kizzy Hopkins RN Social History [...] 9:00 AM EDT Laboratory Appointment Lab [address] [place] [address] 01/20/2025 9:30 AM EDT Appointment [place] [address] Ana Ho MD [facility] [place] [address] 01/20/2025 11:00 AM EDT Office Visit [place] [address] Ana Ho MD [facility] [place] [address] 01/20/2025 12:00 PM EDT Office Visit [place] [phone] Candy Clifford MD [facility] DR [facility] [place] [address] documented as of this encounter Goals Goal Patient Goal Type Associated Problems Recent Progress Patient-Stated? Author movement Exercise On track(2021 11:16 AM EDT) No Pankaj Mcadams Note: Try gentle movement like chair yoga, t'ai chi and qigong. Health Ceiling Insulation Blower will send hand-outs. Use resistance bands. Health Ceiling Insulation Blower will request a set be mailed. Movement [...] opportunity to start with protein (cottage cheese, nicaraguan yogurt, protein smoothies, chicken or chicken salad [...] and can't go back to sleep. Health Ceiling Insulation Blower will send some to try. Tried apps but don't really like them as I like the quiet when going to sleep. [facility] 04/23 documented as of this encounter Visit Diagnoses Not on filedocumented in this encounter Care Teams Office Machine Servicer Apprentice Relationship Specialty Start Date End Date Justino Lucia MD PCP - General Family Medicine 10/04/21 07/21/24 documented as of this encounter
--- OUTSIDE RECORDS SUMMARY | 2024-10-07 20:37 | XMS_ITS | Encounter Summary ---
Author Organization [facility] Address [facility] [place] [address] Care Team Providers Care Station Installer And Repairer Name Role Phone Justino Lucia MD Primary Care Provider [phone] Encounter Details Date Type Department Care Team (Latest Contact Info) Description 01/07/2023 2:00 PM EDT TH Visit (TeleHealth) [place] [phone] Kay Tao, PhD [facility] [address] [facility] [place] [address] Class 3 severe obesity with serious comorbidity [...] 9:00 AM EDT Laboratory Appointment Lab [address] 01/20/2025 9:30 AM EDT Appointment Ultrasound at [address] Ana Ho MD [facility] [place] [address] 01/20/2025 11:00 AM EDT Office Visit Gastroenterology at [place] [phone] Ana Ho MD [facility] [place] [address] 01/20/2025 12:00 PM EDT Office Visit Weight Center at [place] [address] Candy Clifford MD [facility] [address] [place] [address] documented as of this encounter Goals Goal Patient Goal Type Associated Problems Recent Progress Patient-Stated? Author movement Exercise On track(2021 11:16 AM EDT) No Pankaj Mcadams Note: Try gentle movement like chair yoga, t'ai chi and qigong. Health Record Label Internship will send hand-outs. Use resistance bands. Health Record Label Internship will request a set be mailed. Movement [...] for sample meal ideas in the [facility] Keep food log until you are seen by the dieititian. Record everything you eat or drink, include time eaten and any emotional changes that are significant. relaxation/sleep Lifestyle No Pankaj Mcadams Note: Try some meditation/relaxation apps when I wake in the night and can't go back to sleep. Health Record Label Intern[employer] will send some to try. Tried apps but don't really like them as I like the quiet when going to sleep. [facility] 04/23 documented as of this encounter Visit Diagnoses Diagnosis Class 3 severe obesity with serious comorbidity and body mass index (BMI) of 50.0 to 59.9 in adult, unspecified obesity type documented in this encounter Care Teams Station Installer And Repairer Relationship Specialty Start Date End Date Justino Lucia MD PCP - General Family Medicine 10/04/21 07/21/24 documented as of this encounter
--- OUTSIDE RECORDS SUMMARY | 2024-10-07 20:37 | XMS_ITS | Encounter Summary ---
Author Organization [facility] [place] [address] Care Team Providers Care Upholstery Restorer Name Role Phone Justino Lucia MD Primary Care Provider [phone] Encounter Details Date Type Department Care Team (Late st Contact Info) Description 10/30/2023 Orders [place] [address] Candy Clifford MD [facility] DR NICHOL[facility] [place] [address] Social History Tobacco Use Types [...] 9:00 AM EDT Laboratory Appointment Lab [address] [place] [address] 01/20/2025 9:30 AM EDT [place] [address] Ana Ho MD [facility] [place] [address] 01/20/2025 11:00 AM EDT Office [place] [address] Ana Ho MD [facility] [place] [address] 01/20/2025 12:00 PM EDT Office [place] [address] Candy Clifford MD [facility] DR [facility] [place] [address] documented as of this encounter Goals Goal Patient Goal Type Associated Problems Recent Progress Patient-Stated? Author movement Exercise On track(2021 11:16 AM EDT) No Pankaj Mcadams Note: Try gentle movement like chair yoga, t'ai chi and qigong. Health District Resource Officer will send hand-outs. Use resistance bands. Health District Resource Officer will request a set be mailed. [...] for sample meal ideas in the [facility] Keep food log until you are seen by the dieititian. Record everything you eat or drink, include time eaten and any emotional changes that are significant. relaxation/sleep Lifestyle No Pankaj Mcadams Note: Try some meditation/relaxation apps when I wake in the night and can't go back to sleep. Health District Resource Officer will send some to try. Tried apps but don't really like them as I like the quiet when going to sleep. [facility] 04/23 documented as of this encounter Visit Diagnoses Not on filedocumented in this encounter Care Teams Upholstery Restorer Relationship Specialty Start Date End Date Justino Lucia MD PCP - General Family Medicine 10/04/21 07/21/24 documented as of this encounter
--- OUTSIDE RECORDS SUMMARY | 2024-10-07 20:37 | XMS_ITS | Encounter Summary ---
Author Organization [facility] [place] [address] Care Team Providers Care School Occupational Therapist Name Role Phone Justino Lucia MD Primary Care Provider [phone] Reason for Visit * Reason Onset Date Comments Medication Refill 09/30/2023 Encounter Details Date Type Department Care Team (Late st Contact Info) Description 09/30/2023 Refill [place] [phone] Candy Clifford MD [facility] DR [facility]OL[facility] [place] [address] NAFLD (nonalcoholic fatty liver disease); Hyperlipidemia, unspecified [...] 9:00 AM EDT Laboratory Appointment Lab [address] [place] [phone] 01/20/2025 9:30 AM EDT [place] [address] Ana Ho MD [facility] [place] [address] 01/20/2025 11:00 AM EDT Office [place] [phone] Ana Ho MD [facility] [place] [address] 01/20/2025 12:00 PM EDT Office [place] [address] Candy Clifford MD [facility] DR [facility] [place] [address] documented as of this encounter Goals Goal Patient Goal Type Associated Problems Recent Progress Patient-Stated? Author movement Exercise On track(2021 11:16 AM EDT) No Pankaj Mcadams Note: Try gentle movement like chair yoga, t'ai chi and qigong. Health Assembler Arranger will send hand-outs. Use resistance bands. Health Assembler Arranger will request a set be mailed. Movement [...] for sample meal ideas in the USPS [facility] Keep food log until you are seen by the dieititian. Record everything you eat or drink, include time eaten and any emotional changes that are significant. relaxation/sleep Lifestyle No Pankaj Mcadams Note: Try some meditation/relaxation apps when I wake in the night and can't go back to sleep. Health Assembler Arranger will send some to try. Tried apps but don't really like them as I like the quiet when going to sleep. [facility] 04/23 documented as of this encounter Visit Diagnoses Diagnosis NAFLD (nonalcoholic fatty liver disease) Other chronic nonalcoholic liver disease Hyperlipidemia, unspecified hyperlipidemia type Prediabetes Other abnormal glucose Insulin resistance Dysmetabolic Syndrome X documented in this encounter Care Teams School Occupational Therapist Relationship Specialty Start Date End Date Justino Lucia MD PCP - General Family Medicine 10/04/21 07/21/24 documented as of this encounter
--- OUTSIDE RECORDS SUMMARY | 2024-10-07 20:37 | XMS_ITS | Encounter Summary ---
Author Organization [facility] [place] [address] Care Team Providers Care Global Clinical Leader Name Role Phone Justino Lucia MD Primary Care Provider [phone] Reason for Visit * Auth/Cert (Routine) Specialty [...] GI ENDOSCOPY (WRVU 2.09) Julian Jones MD [facility] [place] [address] [facility] Referral ID Status Reason Start Date Expiration Date Visits Re quested Visits Authorized [id number] 1 1 Encounter Details Date Type Department Care Team (Late Contact Info) Description 06/18/2023 11:25 AM EDT Anesthesia [place] [address] Jim Soni MD [facility] [place] [address] Anesthesia Record Procedure Summary Procedure Name Responsible [...] Type Details Placement Removal PIV 06/18/23; 1119; [id number]-tzl-[id number] catheter system; 22 gauge; metacarpal vein (top of hand), right; CELESTINO RN; distraction; 0; 08/04/24; 1113 06/18/23 1119 by Tracey Kumar RN 08/04/24 1113 by Anna Cisse RN documented [...] Note Patient: Telma Richter Procedure Summary Date: 06/18/23 Room / Location: [facility] ENDO 5 / [facility] ENDOSCOPY Anesthesia Start: 1125 Anesthesia Stop: Procedure: EGD, UPPER GI ENDOSCOPY (WRVU 2.09) (Trunk) Diagnosis: Hepatic cirrhosis, unspecified hepatic cirrhosis type, unspecified whether ascites present Portal hypertension (Cirrhosis with gastroesophageal varices, follow-up screening due late 2022) Surgeons: Julian Jones MD Responsible Provider: Jim Soni MD Anesthesia Type: MAC ASA Status: 3 All Anesthesia Providers: Anesthesiologist: Jim Soni MD LINEN SUPERVISOR: Dulce Madsen CRNA Vitals Value Taken Time BP Temp Pulse Resp SpO2 Pain Level Patient Location: PACU/SDP Level of Consciousness: Awake and Alert Pain [...] 4.67) [facility] PRO UPPER GI ENDOSCOPY, DIAGNOSTIC N/A 06/05/2022 EGD, UPPER GI ENDOSCOPY performed by Leo Rojas MD at [facility] ENDOSCOPY Social History Tobacco Use [...] normal biventricular function, mild aortic sclerosis. Plan: MAC Region - Other Informed Consent: Anesthetic plan and risks discussed with patient. Use of blood products discussed with patient who consented to blood products. Plan discussed with LINEN SUPERVISOR and attending. Anesthesia Screening documented in this encounter Plan of Treatment Upcoming Encounters Date Type Department Care Team (Late st Contact Info) Description 01/20/2025 9:00 AM EDT Laboratory Appointment Lab [address] [phone] 01/20/2025 9:30 AM EDT Appointment Ultrasound at [place] [phone] Ana Ho MD [facility] [place] [address] 01/20/2025 11:00 AM EDT Office Visit [place] [phone] Ana Ho MD [facility] [place] [address] 01/20/2025 12:00 PM EDT Office [place] [phone] Candy Clifford MD [facility] [address] documented as of this encounter Goals Goal Patient Goal Type Associated Problems Recent Progress Patient-Stated? Author movement Exercise On track(2021 11:16 AM EDT) No Pankaj Mcadams Note: Try gentle movement like chair yoga, t'ai chi and qigong. [employer] Bal[employer] Company Artistic Director will send hand-outs. Use resistance bands. Health Ballet Company Artistic Director will request a set be mailed. [...] opportunity to start with protein (cottage cheese, botswanan yogurt, protein smoothies, chicken or chicken salad [...] for sample meal ideas in the USPS [facility] Keep food log until you are seen by the dieititian. Record everything you eat or drink, include time eaten and any emotional changes that are significant. relaxation/sleep Lifestyle No Pankaj Mcadams Note: Try some meditation/relaxation apps when I wake in the night and can't go back to sleep. [employer] Artistic Director will send some to try. Tried [...] L/hr documented in this encounter Care Teams Global Clinical Leader Relationship Specialty Start Date End Date Justino Lucia MD PCP - General Family Medicine 10/04/21 07/21/24 documented as of this encounter
--- OUTSIDE RECORDS SUMMARY | 2024-10-07 20:37 | XMS_ITS | Encounter Summary ---
Author Organization [facility] [place] [address] Care Team Providers Care Ophthalmic Assistant Name Role Phone Justino Lucia MD Primary Care Provider [phone] Reason for Visit * Reason Comments Medication Refill Encounter Details Date Type Department Care Team (Late st Contact Info) Description 10/28/2023 [place] [address] [facility] [address] Social History Tobacco Use Types Packs/Day Years [...] 9:00 AM EDT Laboratory Appointment Lab 3[address] [place] [address] 01/20/2025 9:30 AM EDT [place] [address] [facility] GASTROENTEROLOGY [place], [place] [id number] 01/20/2025 11:00 AM EDT Office [place] [address] [facility] [address] 01/20/2025 12:00 PM EDT Office [place] [address] [facility] [address] [facility] [place] [address] documented as of this encounter Goals Goal Patient Goal Type Associated Problems Recent Progress Patient-Stated? Author movement Exercise On track(2021 11:16 AM EDT) No Pankaj Mcadams Note: Try gentle movement like chair yoga, t'ai chi and qigong. Health Guide will send hand-outs. Use resistance bands. Health Guide will request a set be mailed. Movement [...] and can't go back to sleep. Health Guide will send some to try. Tried apps but don't really like them as I like the quiet when going to sleep. [facility] 04/23 documented as of this encounter Visit Diagnoses Not on filedocumented in this encounter Care Teams Ophthalmic Assistant Relationship Specialty Start Date End Date Justino Lucia MD PCP - General Family Medicine 10/04/21 07/21/24 documented as of this encounter
--- OUTSIDE RECORDS SUMMARY | 2024-10-07 20:37 | XMS_ITS | Encounter Summary ---
Author Organization [facility] [place] [address] Care Team Providers Care Market Risk Manager Name Role Phone Justino Lucia MD Primary Care Provider [phone] Reason for Visit * Reason Onset Date Comments Medication Refill 09/30/2023 Encounter Details Date Type Department Care Team (Late st Contact Info) Description 09/30/2023 Ref[place] [phone] Ana Ho MD [facility] [place] [address] Diarrhea, unspecified type Social History Tobacco Use [...] 9:00 AM EDT Laboratory Appointment Lab [address] [place] [phone] 01/20/2025 9:30 AM EDT [place] [phone] Ana Ho MD [facility] [place] [address] 01/20/2025 11:00 AM EDT Office [place] [address] nAa Ho MD [facility] [place] [address] 01/20/2025 12:00 PM EDT Office [place] [address] Candy Clifford MD [facility] DR [facility]OL[facility] [address] documented as of this encounter Goals Goal Patient Goal Type Associated Problems Recent Progress Patient-Stated? Author movement Exercise On track(2021 11:16 AM EDT) No Pankaj Mcadams Note: Try gentle movement like chair yoga, t'ai chi and qigong. Health Scallop Binder will send hand-outs. Use resistance bands. Health Scallop Binder will request a set be mailed. Movement [...] and can't go back to sleep. Health Scallop Binder will send some to try. Tried apps but don't really like them as I like the quiet when going to sleep. [facility] 04/23 documented as of this encounter Visit Diagnoses Diagnosis Diarrhea, unspecified type documented in this encounter Care Teams Market Risk Manager Relationship Specialty Start Date End Date Justino Lucia MD PCP - General Family Medicine 10/04/21 07/21/24 documented as of this encounter
--- OUTSIDE RECORDS SUMMARY | 2024-10-07 20:37 | XMS_ITS | Encounter Summary ---
Author Organization [facility] Address [facility] [place] [address] Care Team Providers Care Hard Hat Diver Name Role Phone Justino Lucia MD Primary Care Provider [phone] Encounter Details Date Type Department Care Team (Late st Contact Info) Description 07/23/2023 2:00 PM EST TH Visit (TeleHealth) [place] [address] Candy Clifford MD [facility] DR [facility] [address] Class 3 severe obesity with serious comorbidity [...] this video visit, pt is located at: [facility] Patient Name: [...] deficiency. GERD. OA. This is Visit #9 [facility] visit for this 73 y.o. patient. Weight gain due to: Unclear - sits at home; notes gaining weight when she moved here from [place] to take care of her dad about [...] lbs (+ 1 lbs, - 47 lbs) [facility] Team: Lacey Martino RD and Pankaj Mcadams, Health Administrative Services Director HPI These shots aren't working anymore, down to 276 lbs and now back up to 288 lbs. Getting into junk food - cookies, whoopie pies - I love those, that started it. Been trying to cut down on those. Had EGD and CT abd for cirrhosis/varices. Stable. Having attacks, Dr. Lucia ordering echo. PILLARS Stress: working 4 days [...] dose phentermine. Cont f/u. 01/18/2022 4:00 PM [facility] PATHWAY - ADULT Obesity Medicine Activate Goals movement Try gentle movement like chair yoga, t'ai chi and qigong. Health Administrative Services Director will send hand-outs. Use resistance bands. Health Administrative Services Director will request a set be mailed. Movement Look around town, [employer] center, gyms, for a class to participate in, bone builders or gentle stretching. Nutrition Nutrition Goals updated today: 12/11/22 TF 1. Focus on reaching adequate protein intake - aim for 60-80 grams (handout attached in after visitsummary) 2. Consider the 3 eating events per day to be an opportunity to start with protein (cottage cheese,gambian yogurt, protein smoothies, chicken or chicken salad [...] [facility] Keep food log until you are seen by the dieititian. Record everything you eat or drink, include time eaten and any emotional changes that are significant. relaxation/sleep Try some meditation/relaxation apps when I wake in the night and can't go back to sleep. Health Administrative Services Director will send some to try. Tried apps but don't really like them as I like the quiet when going to sleep. [facility] 04/23 VITAL SIGNS: There were [...] for: GLUCFASTING Lab Results Component Value Date [id number] 553 01/01/2023 25-OH Vit D Total (ng/mL) [...] ACT. 1 min chart review 30 min [id number] Visit time 3 min Documentation time I [...] 9:00 AM EDT Laboratory Appointment Lab 3L [place] [address] 01/20/2025 9:30 AM EDT Appointment Ultrasound at [place] [phone] Ana Ho MD [facility] [place] [address] 01/20/2025 11:00 AM EDT Office Visit Gastroenterology at [place] [phone] Ana Ho MD [facility] [place] [address] 01/20/2025 12:00 PM EDT Office Visit Weight Center at [place] [phone] Candy Clifford MD [facility] DR N[facility] [address] documented as of this encounter Goals Goal Patient Goal Type Associated Problems Recent Progress Patient-Stated? Author movement Exercise On track(2021 11:16 AM EDT) No Pankaj Mcadams Note: Try gentle movement like chair yoga, t'ai chi and qigong. Health Administrative Services Director will send hand-outs. Use resistance bands. Health Administrative Services Director will request a set be mailed. [...] opportunity to start with protein (cottage cheese, gambian yogurt, protein smoothies, chicken or chicken salad [...] can't go back to sleep. Health Administrative Services Director will send some to try. Tried apps but don't really like them as I like the quiet when going to sleep. [facility] 04/23 documented as of this encounter Visit Diagnoses Diagnosis Class 3 severe obesity with serious comorbidity and body mass index (BMI) of 50.0 to 59.9 in adult, unspecified obesity type NAFLD (nonalcoholic fatty liver disease) Other chronic nonalcoholic liver disease Hyperlipidemia, unspecified hyperlipidemia type Prediabetes Other abnormal glucose Insulin resistance Dysmetabolic Syndrome X documented in this encounter Care Teams Hard Hat Diver Relationship Specialty Start Date End Date Justino Lucia MD PCP - General Family Medicine 10/04/21 07/21/24 documented as of this encounter
--- OUTSIDE RECORDS SUMMARY | 2024-10-07 20:37 | XMS_ITS | Encounter Summary ---
Author Organization [facility] Address [facility] [place] [address] Care Team Providers Care Laborer Name Role Phone Justino Lucia MD Primary Care Provider Encounter Details Date Type Department Care Team (Late st Contact Info) Description 01/25/2023 9:30 AM EDT Office [place] [phone] Candy Clifford MD [facility] DR NICHOL[facility] PERDOM[place] [address] Class 3 severe obesity with serious comorbidity [...] 9:30 AM EDTSummary: 7th visit with MD [facility] [place] Patient Name: Telma Richter Date of : [...] deficiency. GERD. OA. This is Visit #7 [facility] visit for this 72 y.o. patient. Weight gain due to: Unclear - sits at home; notes gaining weight when she moved here from [place] to take care of her dad about [...] - 40 lbs = 12% TBW lost) [facility] Team: Lacey Martino RD and Pankaj Mcadams, Health Investor Relations Associate HPI Having some issues with light-headedness, dizziness [...] a day. Cont f/u. 01/18/2022 4:00 PM [facility] PATHWAY - ADULT Obesity Medicine Activate Goals ??? movement Try gentle movement like chair yoga, t'ai chi and qigong. Health Investor Relations Associate will send hand-outs. Use resistance bands. Health Investor Relations Associate will request a set be mailed. ??? [...] an opportunity to start with protein (cottage cheese,senegalese yogurt, protein smoothies, chicken or chicken salad [...] and can't go back to sleep. Health Investor Relations Associate will send some to try. Tried apps but don't really like them as I like the quiet when going to sleep. [facility] 04/23 VITAL SIGNS: Vitals: 01/25/23 0856 BP: 139/57 BP Location ([facility]): Right arm Patient Position: Sitting [...] for: GLUCFASTING Lab Results Component Value Date [id number] 553 01/01/2023 25-OH Vit D Total (ng/mL) [...] me. 1 min chart review 20 min [id number] Visit time 3 min Documentation time I [...] 9:00 AM EDT Laboratory Appointment Lab [address] [place] [address] 01/20/2025 9:30 AM EDT Appointment [place] [phone] Ana Ho MD [facility] [place] [address] 01/20/2025 11:00 AM EDT Office [place] [phone] Ana Ho MD [facility] [place] [address] 01/20/2025 12:00 PM EDT Office [place] [address] Candy Clifford MD [facility] DR [facility] [address] documented as of this encounter Goals Goal Patient Goal Type Associated Problems Recent Progress Patient-Stated? Author movement Exercise On track(2021 11:16 AM EDT) No Pankaj Mcadams Note: Try gentle movement like chair yoga, t'ai chi and qigong. Health Investor Relations Associate will send hand-outs. Use resistance bands. Health Investor Relations Associate will request a set be mailed. [...] opportunity to start with protein (cottage cheese, senegalese yogurt, protein smoothies, chicken or chicken salad [...] and can't go back to sleep. Health Investor Relations Associate will send some to try. Tried [...] type documented in this encounter Care Teams Laborer Relationship Specialty Start Date End Date Justino Lucia MD PCP - General Family Medicine 10/04/21 07/21/24 documented as of this encounter
--- OUTSIDE RECORDS SUMMARY | 2024-10-07 20:37 | XMS_ITS | Encounter Summary ---
Author Organization [facility] Address [facility] [place] [address] Care Team Providers Care Glass Beveller Name Role Phone Justnio Lucia MD Primary Care Provider [phone] Encounter Details Date Type Department Care Team (Latest Contact Info) Description 02/04/2023 2:00 PM EDT TH Visit (TeleHealth) [place] [phone] Kay aTo, PhD [facility] [address] [place] [address] Class 3 severe obesity with serious comorbidity [...] from previous session Mindfulness practice via the mountain exercise Reviewed information about factors that contribute [...] 9:00 AM EDT Laboratory Appointment Lab 3[address] [place] [address] 01/20/2025 9:30 AM EDT [place] [address] Ana Ho MD [facility] [place] [address] 01/20/2025 11:00 AM EDT Office [place] [phone] Ana Ho MD [facility] [place] [place] [address] 01/20/2025 12:00 PM EDT Office Visit Weight Center at [facility] [place] [phone] Candy Clifford MD [facility] DR NICHOL[facility] PERDOM[facility] [address] documented as of this encounter Goals Goal Patient Goal Type Associated Problems Recent Progress Patient-Stated? Author movement Exercise On track(2021 11:16 AM EDT) No Pankaj Mcadams Note: Try gentle movement like chair yoga, t'ai chi and qigong. Health Production Supervisor Off Shift will send hand-outs. Use resistance bands. Health Production Supervisor Off Shift will request a set be mailed. Movement [...] opportunity to start with protein (cottage cheese, togolese yogurt, protein smoothies, chicken or chicken salad [...] and can't go back to sleep. Health Production Supervisor Off Shift will send some to try. Tried apps but don't really like them as I like the quiet when going to sleep. [facility] 04/23 documented as of this encounter Visit Diagnoses Diagnosis Class 3 severe obesity with serious comorbidity and body mass index (BMI) of 50.0 to 59.9 in adult, unspecified obesity type documented in this encounter Care Teams Glass Beveller Relationship Specialty Start Date End Date Justino Lucia MD PCP - General Family Medicine 10/04/21 07/21/24 documented as of this encounter
--- OUTSIDE RECORDS SUMMARY | 2024-10-07 20:37 | XMS_ITS | Encounter Summary ---
Author Organization [facility] [place] [address] Care Team Providers Care Wellness Specialist Name Role Phone Justino Lucia MD Primary Care Provider [phone] Reason for Visit * Reason Comments Prior Authorization Ozempic 8mg/3mL Encounter Details Date Type Department Care Team (Late st Contact Info) Description 10/07/2023 Specialty [place] [phone] Nan Hoffman CPHT Social History Tobacco Use [...] 9:00 AM EDT Laboratory Appointment Lab 3L [place] [address] 01/20/2025 9:30 AM EDT Appointment Ultrasound at [place] [phone] Aan Ho MD [facility] [place] [address] 01/20/2025 11:00 AM EDT Office [place] [address] Ana Ho MD [facility] [place] [address] 01/20/2025 12:00 PM EDT Office [place] [phone] Candy Clifford MD [facility] DR [facility] [address] documented as of this encounter Goals Goal Patient Goal Type Associated Problems Recent Progress Patient-Stated? Author movement Exercise On track(2021 11:16 AM EDT) No Pankaj Mcadams Note: Try gentle movement like chair yoga, t'ai chi and qigong. Health Scrap Preparer will send hand-outs. Use resistance bands. Health Scrap Preparer will request a set be mailed. Movement [...] opportunity to start with protein (cottage cheese, malaysian yogurt, protein smoothies, chicken or chicken salad [...] for sample meal ideas in the USPS [facility] Keep food log until you are seen by the dieititian. Record everything you eat or drink, include time eaten and any emotional changes that are significant. relaxation/sleep Lifestyle Pankaj Russ Note: Try some meditation/relaxation apps when I wake in the night and can't go back to sleep. Health Scrap Preparer will send some to try. Tried apps but don't really like them as I like the quiet when going to sleep. [facility] 04/23 documented as of this encounter Visit Diagnoses Not on filedocumented in this encounter Care Teams Wellness Specialist Relationship Specialty Start Date End Date Justino Lucia MD PCP - General Family Medicine 10/04/21 07/21/24 documented as of this encounter
--- OUTSIDE RECORDS SUMMARY | 2024-10-07 20:37 | XMS_ITS | Encounter Summary ---
Author Organization [facility] [place] [address] Care Team Providers Care Director Of Archives Name Role Phone Justino Lucia MD Primary Care Provider [phone] Reason for Visit * Reason Comments Medication Refill Encounter Details Date Type Department Care Team (Late st Contact Info) Description 03/29/2023 [place] [address] Candy Clifford MD [facility] DR NICHOL[facility] [place] [address] Insulin resistance; Prediabetes; Hyperlipidemia, unspecified hyperlipidemia type; [...] 9:00 AM EDT Laboratory Appointment Lab 3[address] [place] [phone] 01/20/2025 9:30 AM EDT [place] [address] Ana Ho MD [facility] [place] [address] 01/20/2025 11:00 AM EDT Office Visit Gastroenterology at [place] [phone] Ana Ho MD [facility] [place] [address] 01/20/2025 12:00 PM EDT Office [place] [address] Candy Clifford MD [facility] DR NICHOL[facility] [place] [address] documented as of this encounter Goals Goal Patient Goal Type Associated Problems Recent Progress Patient-Stated? Author movement Exercise On track(2021 11:16 AM EDT) No Pankaj Mcadams Note: Try gentle movement like chair yoga, t'ai chi and qigong. Health Rehabilitation Teacher will send hand-outs. Use resistance bands. Health Rehabilitation Teacher will request a set be mailed. [...] opportunity to start with protein (cottage cheese, azerbaijani yogurt, protein smoothies, chicken or chicken salad [...] and can't go back to sleep. Health Rehabilitation Teacher will send some to try. Tried [...] disease documented in this encounter Care Teams Director Of Archives Relationship Specialty Start Date End Date Justino Lucia MD PCP - General Family Medicine 10/04/21 07/21/24 documented as of this encounter
--- OUTSIDE RECORDS SUMMARY | 2024-10-07 20:37 | XMS_ITS | Encounter Summary ---
Author Organization [facility] Address [facility] [place] [address] Care Team Providers Care Blend Technician Name Role Phone Justino Lucia MD Primary Care Provider [phone] Encounter Details Date Type Department Care Team (Late st Contact Info) Description 11/26/2023 10:00 AM EDT TH Visit (TeleHealth) [place] [address] Candy Clifford MD [facility] DR NICHOL[facility] PERDOM[place] [address] Class 3 severe obesity with serious comorbidity [...] this video visit, pt is located at: [facility] [place] Patient Name: Telma Richter Date of : [...] deficiency. GERD. OA. This is Visit #10 [facility] visit for this 73 y.o. patient. Weight gain due to: Unclear - sits at home; notes gaining weight when she moved here from [place] to take care of her dad about [...] lbs) 11/26/2023, 288 lbs (- 0 lbs) [facility] Team: Lacey Martino RD and Pankaj Mcadams, Health Stem Dryer Maintainer HPI Lost Medicaid! Now paying $137 monthly into Medicare. Working up to 34 hours a week, 16 dollars an hour. Since being off Ozempic, was getting shaky and light headed. Had Dr. Lucia take a look at my neck - constantly sore. He's going to work as Hospitalist. Had echo done at [facility] or [facility]. Legs are swollen right now, having a hard time walking. On lasix 20 mg chronically. In [place] constantly, worried about taking 40 mg. PILLARS Stress: 14 yo GD is doing ok, getting treated at . My stress level is ok. I love working. 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 Cont f/u. 01/18/2022 4:00 PM [facility] PATHWAY - ADULT Obesity Medicine Activate Goals movement Try gentle movement like chair yoga, t'ai chi and qigong. Health Stem Dryer Maintainer will send hand-outs. Use resistance bands. Health Stem Dryer Maintainer will request a set be mailed. Movement [...] an opportunity to start with protein (cottage cheese,indian yogurt, protein smoothies, chicken or chicken salad [...] and can't go back to sleep. Health Stem Dryer Maintainer will send some to try. Tried apps but don't really like them as I like the quiet when going to sleep. [facility] 04/23 VITAL SIGNS: There were no [...] for: GLUCFASTING Lab Results Component Value Date [id number] 553 01/01/2023 25-OH Vit D Total (ng/mL) [...] management today: Applying for Ozempic through [facility] and all orders for this visit: [...] me. 1 min chart review 25 min [id number] Visit time 5 min Documentation time I [...] 9:00 AM EDT Laboratory Appointment Lab 3L [address] 01/20/2025 9:30 AM EDT Appointment Ultrasound at [place] [phone] Ana Ho MD [facility] [place] [address] 01/20/2025 11:00 AM EDT Office Visit Gastroenterology at [place] [phone] Ana Ho MD [facility] [place] [address] 01/20/2025 12:00 PM EDT Office [place] [phone] Candy Clifford MD [facility] DR [facility]ICHOL[facility] PER[facility] [address] documented as of this encounter Goals Goal Patient Goal Type Associated Problems Recent Progress Patient-Stated? Author movement Exercise On track(2021 11:16 AM EDT) No Pankaj Mcadams Note: Try gentle movement like chair yoga, t'ai chi and qigong. Health Stem Dryer Maintainer will send hand-outs. Use resistance bands. Health Stem Dryer Maintainer will request a set be mailed. Movement Exercise On track(2021 11:16 AM EDT) No Pankaj Mcadams Note: Look around town, [employer] center, gyms, for a class to participate [...] for sample meal ideas in the [facility] Keep food log until you are seen by the dieititian. Record everything you eat or drink, include time eaten and any emotional changes that are significant. relaxation/sleep Lifestyle No Pankaj Mcadams Note: Try some meditation/relaxation apps when I wake in the night and can't go back to sleep. Health Stem Dryer Maintainer will send some to try. Tried apps [...] type documented in this encounter Care Teams Blend Technician Relationship Specialty Start Date End Date Justino Lucia MD PCP - General Family Medicine 10/04/21 07/21/24 documented as of this encounter
--- OUTSIDE RECORDS SUMMARY | 2024-10-07 20:37 | XMS_ITS | Encounter Summary ---
Author Organization [facility] [place] [address] Care Team Providers Care Manager Integrity Name Role Phone Justino Lucia MD Primary Care Provider [phone] Encounter Details Date Type Department Care Team (Latest Contact Info) Description 07/04/2023 7:45 AM EDT Laboratory Appointment Lab [address] [place] [phone] Hepatic cirrhosis, unspecified hepatic cirrhosis type, unspecified [...] 9:00 AM EDT Laboratory Appointment Lab [address] [place] [phone] 01/20/2025 9:30 AM EDT [place] [phone] Ana Ho MD [facility] [place] [address] 01/20/2025 11:00 AM EDT Office [place] [phone] Ana Ho MD [facility] [place] [address] 01/20/2025 12:00 PM EDT Office [place] [address] Candy Clifford MD [facility] DR NICHOLAS PERDOM[place] [address] documented as of this encounter Goals Goal Patient Goal Type Associated Problems Recent Progress Patient-Stated? Author movement Exercise On track(2021 11:16 AM EDT) No Pankaj Mcadams Note: Try gentle movement like chair yoga, t'ai chi and qigong. Health Power Shovel Engineer will send hand-outs. Use resistance bands. Health Power Shovel Engineer will request a set be mailed. [...] opportunity to start with protein (cottage cheese, malagasy yogurt, protein smoothies, chicken or chicken salad [...] and can't go back to sleep. Health Power Shovel Engineer will send some to try. Tried apps but don't really like them as I like the quiet when going to sleep. [facility] 04/23 documented as of this encounter [...] 7:39 AM EDT) Neutrophil % 50.6 % [facility] Neutrophil Absolute 2.21 1.70 - 6.10 x10(3)/mcL [facility] Lymph % 34.3 % [facility] Lymphocytes Abs 1.5 0.9 - 3.2 x10(3)/mcL [facility] Monocyte % 10.8 % [facility] Monocyte Abs 0.5 0.3 - 0.9 x10(3)/[facility] Eos % 3.2 % [facility] Eosinophils Abs 0.1 0.0 - 0.4 x10(3)/[facility] LAB[facility]ORY Basophil % 0.9 % [facility] Baso Absolute 0.0 0.0 - 0.1 x10(3)/[facility] LABOR[facility]ORY Immature Gran % 0.20 % [facility] Comment: Immature granulocytes(IG's)percentage and absolute count will include metamyelocytes, myelocytes, and promyelocytes. Blood smears from CBCs yielding IG's will be scanned manually for concordance. If this scan disagrees with the automated IG or if promyelocytes are noted, a manual differential will be performed. Immature Gran Absolute 0.01 0.00 - 0.04 x10(3)/[facility] LAB[facility] Blood 07/04/2023 7:39 AM EDT 07/04/2023 7:43 AM EDT Narrative Resulting Agency Comment Spec In Lab Glenn CHOWDHURY HEMATOLOGY ORDERABLE S [facility] [place] [address] * (ABNORMAL) Hemogram (07/04/2023 7:39 AM EDT) White Blood Cell 4.4 4.0 - 9.5 x10(3)/mc L [facility] Red Blood Cell 4.64 4.00 - 5.21 x10(6)/mc L [facility] Hemoglobin 14.2 11.7 - 15.5 g/dL [facility] Hematocrit 42.4 35.7 - 45.8 % [facility] Mean Cell Volume 91.4 82.6 - 94.4 fL [facility] Mean Cell Hemoglobin 30.6 27.1 - 32.0 pg [facility] Mean Cell Hemoglobin Concentration 33.5 31.7 - 35.0 g/dL [facility] Platelet 199 145 - 357 x10(3)/mc L [facility] RDW Standard Deviation 46.3(H) 37.0 - 46.0 fL [facility] RDW coefficient of variation 13.7 11.5 - 14.1 % [facility] Mean Platelet Volume 9.5 7.6 - 12.9 fL [facility] NRBC% auto 0.0 % [facility] NRBC Absolute 0.000 0.000 - 0.000 x10(3)/mc L [facility] Blood 07/04/2023 7:39 AM EDT 07/04/2023 7:43 AM EDT Narrative Resulting Agency Comment Spec In Lab Glenn CHOWDHURY HEMATOLOGY ORDERABLE S [facility] [place] [address] * Comprehensive metabolic panel (non-fasting) (07/04/2023 7:39 AM EDT) Glucose 92 65 - 199 mg/dL [facility] Comment:Diabetes: >=200 mg/d L plus symptoms Blood Urea Nitrogen 10 8 - 18 mg/dL [facility] Creatinine 0.77 0.70 - 1.20 mg/dL [facility] Sodium 142 135 - 145 mmol/L [facility] Potassium 3.8 3.5 - 5.0 mmol/L [facility] Comment: Please note: ??Patients with WBC >100,000 may have falsely elevated Potassium levels. ??For accurate Potassium quantification in these patients send serum separator tube (gold top) for subsequent determinations. ??Contact the Clinical Chemistry Laboratory if there are any questions. Chloride 103 98 - 107 mmol/L [facility] Carbon Dioxide 30 22 - 31 mmol/L [facility] Anion Gap 9 5 - 15 mmol/L [facility] Calcium 8.8 8.5 - 10.5 mg/dL [facility] Protein, Total 6.5 6.1 - 8.0 g/dL [facility] Albumin 3.4 3.2 - 5.2 g/dL [facility] Aspartate Aminotransferase 25 0 - 30 unit/L [facility] Alanine Aminotransferase 15 0 - 30 unit/L [facility] Alkaline Phosphatase 84 35 - 105 unit/L [facility] Bilirubin, Total 1.0 0.2 - 1.3 mg/dL [facility] Est Glomerular Filtration Rate 82 >=60 mL/min/1. 73 m?? [facility] Comment: This patient's estimated [...] Hickey MD CHEMISTRY ORDERABLES Performing Organization Address [facility] Co de Phone Number [facility] [place] [address] * (ABNORMAL) Prothrombin Time (07/04/2023 7:39 AM EDT) Prothrombin Time 13.2(H) 9.4 - 12.5 sec [facility] International Normalization Ratio 1.2 [facility] Comment: An INR [...] Narrative Resulting Agency Comment Spec In Lab eRa Hickey MD HEMATOLOGY ORDERABLE S Performing Organization Address [facility]/ZIP Co de Phone Number [facility] [place] [address] * AFP tumor marker (07/04/2023 7:39 AM EDT) Alpha Fetoprotein 2.9 <=8.3 ng/mL [facility] Comment: This result was generated using a Anthony Viridiana immunoassay. ??Results obtained from other methods or manufacturers cannot be used interchangeably with this method. Blood 07/04/2023 7:39 AM EDT 07/04/2023 7:43 AM EDT Narrative Resulting Agency Comment Spec In Lab Rea Hickey MD CHEMISTRY ORDERABLES [facility] [place] [address] documented in this encounter Visit Diagnoses Diagnosis Hepatic cirrhosis, unspecified hepatic cirrhosis type, unspecified whether ascites present documented in this encounter Care Teams Manager Integrity Relationship Specialty Start Date End Date Justino Lucia MD PCP - General Family Medicine 10/04/21 07/21/24 documented as of this encounter
--- OUTSIDE RECORDS SUMMARY | 2024-10-07 20:37 | XMS_ITS | Encounter Summary ---
Author Organization [facility] [place] [address] Care Team Providers Care Director Of Reimbursement Name Role Phone Justino Lucia MD Primary Care Provider Encounter Details Date Type Department Care Team (Latest Contact Info) Description 06/28/2023 Travel Social History Tobacco Use Types Packs/Day [...] 9:00 AM EDT Laboratory Appointment Lab [address] [place] [phone] 01/20/2025 9:30 AM EDT [place]ointment [place] [address] Ana Ho MD [facility] [place] [address] 01/20/2025 11:00 AM EDT Office Visit [place] [phone] Ana Ho MD [facility] [place] [address] 01/20/2025 12:00 PM EDT Office [place] [address] Candy Clifford MD [facility] DR NICHOLAS [place] [address] documented as of this encounter Goals Goal Patient Goal Type Associated Problems Recent Progress Patient-Stated? Author movement Exercise On track(2021 11:16 AM EDT) No Pankaj Mcadams Note: Try gentle movement like chair yoga, t'ai chi and qigong. Health Scraper Loader Operator will send hand-outs. Use resistance bands. Health Scraper Loader Operator will request a set be mailed. Movement Exercise On track(2021 11:16 AM EDT) No Pankaj Mcadams Note: Look around town, [employer] center, gyms, for a class to participate [...] and can't go back to sleep. Health Scraper Loader Operator will send some to try. Tried apps but don't really like them as I like the quiet when going to sleep. [facility] 04/23 documented as of this encounter Visit Diagnoses Not on filedocumented in this encounter Care Teams Director Of Reimbursement Relationship Specialty Start Date End Date Justino Lucia MD PCP - General Family Medicine 10/04/21 07/21/24 documented as of this encounter
--- OUTSIDE RECORDS SUMMARY | 2024-10-07 20:37 | XMS_ITS | Encounter Summary ---
Author Organization [facility] [place] [address] Care Team Providers Care Environmental Solutions Engineer Name Role Phone Justino Lucia MD Primary Care Provider [phone] Encounter Details Date Type Department Care Team [...] 9:00 AM EDT Laboratory Appointment Lab [address] [place] [phone] 01/20/2025 9:30 AM EDT [place] [address] Ana Ho MD [facility] [place] [address] 01/20/2025 11:00 AM EDT Office [place] [phone] Ana Ho MD [facility] [place] [address] 01/20/2025 12:00 PM EDT Office [place] [address] Candy Clifford MD [facility] DR NICHOLAS [place] [address] documented as of this encounter Goals Goal Patient Goal Type Associated Problems Recent Progress Patient-Stated? Author movement Exercise On track(2021 11:16 AM EDT) No Pankaj Mcadams Note: Try gentle movement like chair yoga, t'ai chi and qigong. Health Dolly Pusher will send hand-outs. Use resistance bands. Health Dolly Pusher will request a set be mailed. Movement Exercise On track(2021 11:16 AM EDT) No Pankaj Mcadams Note: Look around town, [employer] center, gyms, for a class to participate in, bone builders or gentle stretching. Nutrition Lifestyle No Candy Clifford MD Note: Nutrition Goals updated today: 12/11/22 TF 1. Focus on reaching adequate protein intake - aim for 60-80 grams (handout attached in after visit summary) 2. Consider the 3 eating events per day to be an opportunity to start with protein (cottage cheese, luxembourgish yogurt, protein smoothies, chicken or chicken salad [...] and can't go back to sleep. Health Dolly Pusher will send some to try. Tried apps but don't really like them as I like the quiet when going to sleep. [facility] 04/23 documented as of this encounter Visit Diagnoses Not on filedocumented in this encounter Care Teams Environmental Solutions Engineer Relationship Specialty Start Date End Date Justino Lucia MD PCP - General Family Medicine 10/04/21 07/21/24 documented as of this encounter
--- OUTSIDE RECORDS SUMMARY | 2024-10-07 20:37 | XMS_ITS | Encounter Summary ---
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 No You must have a responsible green party who will drive you to your procedure, stay on campus for the entire duration of your procedure, and drive you home from your procedure. Who will likely be your truck driver's offsider for the procedure? *Please Verify the height [...] 01/20/2025 9:00 AM EDT Laboratory Appointment Lab [address] [phone] 01/20/2025 9:30 AM EDT Appointment Ultrasound at [address] Ana Ho MD [facility] [place] [address] 01/20/2025 11:00 AM EDT Office Visit Gastroenterology at [place] [phone] Ana Ho MD [facility] [place] [address] 01/20/2025 12:00 PM EDT Office Visit Weight Center at [place] [phone] Candy Clifford MD [facility] DR NICHOLAS [place] [address] documented as of this encounter Goals Goal Patient Goal Type Associated Problems Recent Progress Patient-Stated? Author movement Exercise On track(2021 11:16 AM EDT) No Pankaj Mcadams Note: Try gentle movement like chair yoga, t'ai chi and qigong. Health Safety Manager will send hand-outs. Use resistance bands. Health Safety Manager will request a set be [...] opportunity to start with protein (cottage cheese, jordanian yogurt, protein smoothies, chicken or chicken salad [...] for sample meal ideas in the [employer]PS [facility] Keep food log until you are seen by the dieititian. Record everything you eat or drink, include time eaten and any emotional changes that are significant. relaxation/sleep Lifestyle No Pankaj Mcadams Note: Try some meditation/relaxation apps when I wake in the night and can't go back to sleep. Health Safety Manager will send some to try. Tried apps but don't really like them as I like the quiet when going to sleep. [facility] 04/23 documented as of this encounter Visit Diagnoses Not on filedocumented in this encounter Care Teams Er Rn Relationship Specialty Start Date End Date Justino Lucia MD PCP - General Family Medicine 10/04/21 07/21/24 documented as of this encounter
--- OUTSIDE RECORDS SUMMARY | 2024-10-07 20:37 | XMS_ITS | Encounter Summary ---
Author Organization [facility] [place] [address] Care Team Providers Care Shipping Clerk Crating Name Role Phone Justino Lucia MD Primary Care Provider [phone] Encounter Details Date Type Department Care Team [...] 9:00 AM EDT Laboratory Appointment Lab [address] [place] [phone] 01/20/2025 9:30 AM EDT [place] [phone] Ana Ho MD [facility] [place] [address] 01/20/2025 11:00 AM EDT Office [place] [phone] Ana Ho MD [facility] [place] [address] 01/20/2025 12:00 PM EDT Office [place] [address] Candy Clifford MD [facility] DR NICHOLAS PERDOM[place] [address] documented as of this encounter Goals Goal Patient Goal Type Associated Problems Recent Progress Patient-Stated? Author movement Exercise On track(2021 11:16 AM EDT) No Pankaj Mcadams Note: Try gentle movement like chair yoga, t'ai chi and qigong. Health Telephone Betting Clerk will send hand-outs. Use resistance bands. Health Telephone Betting Clerk will request a set be mailed. Movement Exercise On track(2021 11:16 AM EDT) No Pankaj Mcadams Note: Look around town, [employer] center, gyms, for a class to participate [...] meal [facility] in the [facility] Keep food [facility] until you are seen by the dieititian. Record everything you eat or drink, include time eaten and any emotional changes that are significant. relaxation/sleep Lifestyle No Pankaj Mcadams Note: Try some meditation/relaxation apps when I wake in the night and can't go back to sleep. Health Telephone Betting Clerk will send some to try. Tried apps but don't really like them as I like the quiet when going to sleep. [facility] 04/23 documented as of this encounter Visit Diagnoses Not on filedocumented in this encounter Care Teams Shipping Clerk Crating Relationship Specialty Start Date End Date Justino Lucia MD PCP - General Family Medicine 10/04/21 07/21/24 documented as of this encounter
--- OUTSIDE RECORDS SUMMARY | 2024-10-07 20:37 | XMS_ITS | Encounter Summary ---
Author Organization [facility] Address [facility] [place] [address] Care Team Providers Care Radio Recorder Name Role Phone Justino Lucia MD Primary Care Provider [phone] Encounter Details Date Type Department Care Team (Latest Contact Info) Description 01/14/2023 2:00 PM EDT TH Visit (TeleHealth) [place] [phone] Kay Tao, PhD [facility] DR NICHOLAS [place] [address] Class 3 severe obesity with serious comorbidity [...] 9:00 AM EDT Laboratory Appointment Lab [address] [place] [phone] 01/20/2025 9:30 AM EDT Appointment Ultrasound at [place] [phone] Ana Ho MD [facility] [place] [address] 01/20/2025 11:00 AM EDT Office Visit Gastroenterology at [place] [phone] Ana Ho MD [facility] [place] [address] 01/20/2025 12:00 PM EDT Office [place] [phone] Candy Clifford MD [facility] DR NICHOLAS [place] [address] documented as of this encounter Goals Goal Patient Goal Type Associated Problems Recent Progress Patient-Stated? Author movement Exercise On track(2021 11:16 AM EDT) No Pankaj Mcadams Note: Try gentle movement like chair yoga, t'ai chi and qigong. Health Digital Operations Analyst will send hand-outs. Use resistance bands. Health Digital Operations Analyst will request a set be mailed. Movement Exercise On track(2021 11:16 AM EDT) No Pankaj Mcadams Note: Look around town, [employer] center, gyms, for a class to participate [...] and can't go back to sleep. Health Digital Operations Analyst will send some to try. Tried [...] type documented in this encounter Care Teams Radio Recorder Relationship Specialty Start Date End Date Justino Lucia MD PCP - General Family Medicine 10/04/21 07/21/24 documented as of this encounter
--- OUTSIDE RECORDS SUMMARY | 2024-10-07 20:37 | XMS_ITS | Encounter Summary ---
Author Organization [facility] [place] [address] Care Team Providers Care Asp Developer Name Role Phone Justino Lucia MD Primary Care Provider [phone] Reason for Visit * Auth/Cert (Routine) Specialty [...] GI ENDOSCOPY (WRVU 2.09) Julian Jones MD [facility] [place] [address] [facility] Referral ID Status Reason Start Date Expiration Date Visits Re quested Visits Authorized [id number] 1 1 Encounter Details Date Type Department Care Team (Late Contact Info) Description 06/18/2023 11:30 AM EDT - 06/18/2023 12:00 PM EDT [place] [address] Julian Jones MD [facility] [place] [address] EGD, UPPER GI ENDOSCOPY (WRVU 2.09) Social [...] 9:00 AM EDT Laboratory Appointment Lab [address] [place] [address] 01/20/2025 9:30 AM EDT [place] [phone] Ana Ho MD [facility] [place] [address] 01/20/2025 11:00 AM EDT Office [place] [phone] Ana Ho MD [facility] [place] [address] 01/20/2025 12:00 PM EDT Office [place] [phone] Candy Clifford MD [facility] [place] [address] documented as of this encounter Goals Goal Patient Goal Type Associated Problems Recent Progress Patient-Stated? Author movement Exercise On track(2021 11:16 AM EDT) No Pankaj Mcadams Note: Try gentle movement like chair yoga, t'ai chi and qigong. Health Career Development Manager will send hand-outs. Use resistance bands. Health Career Development Manager will request a set be mailed. [...] sample meal ideas in the [employer]PS [facility] Keep food log until you are seen by the dieititian. Record everything you eat or drink, include time eaten and any emotional changes that are significant. relaxation/sleep Lifestyle Pankaj Russ Note: Try some meditation/relaxation apps when I wake in the night and can't go back to sleep. Health Career Development Manager will send some to try. Tried apps but don't really like them as I like the quiet when going to sleep. [facility] 04/23 documented as of this encounter Procedures Procedure Name Priority Date/Time Associated Diagnosis Comments Upper GI Endoscopy, Diagnostic (30079) 06/18/2023 11:28 AM EDT Hepatic cirrhosis, unspecified hepatic cirrhosis type, unspecified whether ascites present Portal hypertension UPPER GI ENDOSCOPY Routine 06/18/2023 11 :21 AM EDT documented in this encounter Results * UPPER GI ENDOSCOPY (06/18/2023 11:21 AM EDT) UPPER GI ENDOSCOPY [facility] Endoscopy Procedure Date: 06/18/2023 11:21 AM ? Patient Name: Telma Richter ? Date of : 1950 ? Age: 73 ? Order #: [id number] ? Instrument Name: [id number] ? Procedure: ? Upper GI endoscopy Indications: ? Pt with cirrhosis and known small ? gastric varices r/o esophageal ? varices Providers: ? Julian Jones MD, Carlos Camacho ? , ALICIA, Anna James MD: ?Justino Lucia Medicines: ? See the Anesthesia [...] CRNA) documented in this encounter Care Teams Asp Developer Relationship Specialty Start Date End Date Justino Lucia MD PCP - General Family Medicine 10/04/21 07/21/24 documented as of this encounter
--- OUTSIDE RECORDS SUMMARY | 2024-10-07 20:37 | XMS_ITS | Encounter Summary ---
Author Organization [facility] [place] [address] Care Team Providers Care Caustics Loader Name Role Phone Justino Lucia MD Primary Care Provider [phone] Encounter Details Date Type Department Care Team [...] 9:00 AM EDT Laboratory Appointment Lab [address] [place] [phone] 01/20/2025 9:30 AM EDT [place] [address] Ana Ho MD [facility] [place] [address] 01/20/2025 11:00 AM EDT Office [place] [phone] Ana Ho MD [facility] [place] [address] 01/20/2025 12:00 PM EDT Office [place] [address] Candy Clifford MD [facility] DR [facility] [place] [address] documented as of this encounter Goals Goal Patient Goal Type Associated Problems Recent Progress Patient-Stated? Author movement Exercise On track(2021 11:16 AM EDT) No Pankaj Mcadams Note: Try gentle movement like chair yoga, t'ai chi and qigong. Health Drugless Physician will send hand-outs. Use resistance bands. Health Drugless Physician will request a set be mailed. Movement Exercise On track(2021 11:16 AM EDT) No Pankaj Mcadams Note: Look around town, [employer] center, gyms, for a class to participate [...] for sample meal ideas in the [facility] Keep food log until you are seen by the dieititian. Record everything you eat or drink, include time eaten and any emotional changes that are significant. relaxation/sleep Lifestyle No Pankaj Mcadams Note: Try some meditation/relaxation apps when I wake in the night and can't go back to sleep. Health Drugless Physician will send some to try. Tried apps but don't really like them as I like the quiet when going to sleep. [facility] 04/23 documented as of this encounter Visit Diagnoses Not on filedocumented in this encounter Care Teams Caustics Loader Relationship Specialty Start Date End Date Justino Lucia MD PCP - General Family Medicine 10/04/21 07/21/24 documented as of this encounter
--- OUTSIDE RECORDS SUMMARY | 2024-10-07 20:37 | XMS_ITS | Encounter Summary ---
Author Organization [facility] [place] [address] Care Team Providers Care Ironing Pleater Name Role Phone Justino Lucia MD Primary Care Provider [phone] Encounter Details Date Type Department Care Team [...] 9:00 AM EDT Laboratory Appointment Lab [address] [place] [phone] 01/20/2025 9:30 AM EDT [place] [address] Ana Ho MD [facility] [place] [address] 01/20/2025 11:00 AM EDT Office [place] [phone] Ana Ho MD [facility] [place] [address] 01/20/2025 12:00 PM EDT Office [place] [address] Candy Clifford MD [facility] DR NICHOL[facility] [place] [address] documented as of this encounter Goals Goal Patient Goal Type Associated Problems Recent Progress Patient-Stated? Author movement Exercise On track(2021 11:16 AM EDT) No Pankaj Mcadams Note: Try gentle movement like chair yoga, t'ai chi and qigong. Health Hole Digger will send hand-outs. Use resistance bands. Health Hole Digger will request a set be mailed. Movement Exercise On track(2021 11:16 AM EDT) No Pankaj Mcadams Note: Look around town, [employer] center, gyms, for a class to participate in, bone builders or gentle stretching. Nutrition Lifestyle No Candy Clifford MD Note: Nutrition Goals updated today: 12/11/22 TF 1. Focus on reaching adequate protein intake - aim for 60-80 grams (handout attached in after visit summary) 2. Consider the 3 eating events per day to be an opportunity to start with protein (cottage cheese, slovenian yogurt, protein smoothies, chicken or chicken salad [...] and can't go back to sleep. Health Hole Digger will send some to try. Tried apps but don't really like them as I like the quiet when going to sleep. [facility] 04/23 documented as of this encounter Visit Diagnoses Not on filedocumented in this encounter Care Teams Ironing Pleater Relationship Specialty Start Date End Date Justino Lucia MD PCP - General Family Medicine 10/04/21 07/21/24 documented as of this encounter
--- OUTSIDE RECORDS SUMMARY | 2024-10-07 20:37 | XMS_ITS | Encounter Summary ---
Author Organization [facility] Address [facility] [place] [address] Care Team Providers Care Laundry Operator Finishing Name Role Phone Justino Lucia MD Primary Care Provider [phone] Encounter Details Date Type Department Care Team (Late st Contact Info) Description 04/17/2023 10:30 AM EDT Office [place] [address] Candy Clifford MD [facility] DR NICHOLAS PERDOM[facility]-[place] [address] Insulin resistance; Prediabetes; Hyperlipidemia, unspecified hyperlipidemia type; [...] 10:30 AM EDTSummary: 8th visit with MD [facility] Patient Name: [...] deficiency. GERD. OA. This is Visit #8 [facility] visit for this 72 y.o. [...] lbs (- 8 lbs, - 48 lbs) [facility] Team: Lacey Martino RD and Pankaj Mcadams, Health Wool Spotter HPI Daughter had emergency surgery. Doing ok now. Got a job at [employer] in [place], needs the money and sick of sitting at home. Working 20 hours a week, 4 days. Needs work done on the house. PILLARS Stress: has been high, see above Sleep: up at night for BR Movement: starting to get more activity Recall: Didn't eat much at work [employer] last night for supper, burger felipe panamanian fries Drinking a little more water - [...] as well. Cont f/u. 01/18/2022 4:00 PM [facility] PATHWAY - ADULT Obesity Medicine Activate Goals movement Try gentle movement like chair yoga, t'ai chi and qigong. Health Wool Spotter will send hand-outs. Use resistance bands. Health Wool Spotter will request a set be mailed. Movement [...] an opportunity to start with protein (cottage cheese,ethiopian yogurt, protein smoothies, chicken or chicken salad [...] and can't go back to sleep. Health Wool Spotter will send some to try. Tried apps but don't really like them as I like the quiet when going to sleep. [facility] 04/23 VITAL SIGNS: Vitals: 04/17/23 1013 BP: 129/87 BP Location ([facility]): Right arm Patient Position: Sitting BP Cuff [...] for: GLUCFASTING Lab Results Component Value Date [id number] 01/01/2023 25-OH Vit D Total (ng/mL) [...] me. 1 min chart review 30 min [id number] Visit time 3 min Documentation time I [...] 9:00 AM EDT Laboratory Appointment Lab [address] [place] [phone] 01/20/2025 9:30 AM EDT Appointment Ultrasound at [place] [phone] Ana Ho MD [facility] [place] [address] 01/20/2025 11:00 AM EDT Office Visit Gastroenterology at [place] [phone] Ana Ho MD [facility] [place] [address] 01/20/2025 12:00 PM EDT Office [place] [phone] Candy Clifford MD [facility] DR NICHOLAS PERDOM[place] [address] documented as of this encounter Goals Goal Patient Goal Type Associated Problems Recent Progress Patient-Stated? Author movement Exercise On track(2021 11:16 AM EDT) No Pankaj Mcadams Note: Try gentle movement like chair yoga, t'ai chi and qigong. Health Wool Spotter will send hand-outs. Use resistance bands. Health Wool Spotter will request a set be mailed. Movement Exercise On track(2021 11:16 AM EDT) No Pankaj Mcadams Note: Look around town, [employer] center, gyms, for a class to participate in, bone builders or gentle stretching. Nutrition Lifestyle No Candy Clifford MD Note: Nutrition Goals updated today: 12/11/22 TF 1. Focus on reaching adequate protein intake - aim for 60-80 grams (handout attached in after visit summary) 2. Consider the 3 eating events per day to be an opportunity to start with protein (cottage cheese, ethiopian yogurt, protein smoothies, chicken or chicken salad [...] for sample meal ideas in the [facility]PS [facility] Keep food log until you are seen by the dieititian. Record everything you eat or drink, include time eaten and any emotional changes that are significant. relaxation/sleep Lifestyle No Pankaj Mcadams Note: Try some meditation/relaxation apps when I wake in the night and can't go back to sleep. Health Wool Spotter will send some to try. Tried apps [...] type documented in this encounter Care Teams Laundry Operator Finishing Relationship Specialty Start Date End Date Justino Lucia MD PCP - General Family Medicine 10/04/21 07/21/24 documented as of this encounter
--- OUTSIDE RECORDS SUMMARY | 2024-10-07 20:37 | XMS_ITS | Encounter Summary ---
Author Organization [facility] [place] [address] Care Team Providers Care Water Plant Pump Operator Name Role Phone Justino Lucia MD Primary Care Provider [phone] Encounter Details Date Type Department Care Team (Late Contact Info) Description 08/02/2023 Telephone [place] [address] Joyce Levin Social History Tobacco Use Types [...] 9:00 AM EDT Laboratory Appointment Lab [address] [place] [phone] 01/20/2025 9:30 AM EDT [place] [address] Ana Ho MD [facility] [place] [address] 01/20/2025 11:00 AM EDT Office [place] [phone] Ana Ho MD [facility] [place] [place] [address] 01/20/2025 12:00 PM EDT Office [place] [address] Candy Clifford MD [facility] DR NICHOL[facility] PER[place] [address] documented as of this encounter Goals Goal Patient Goal Type Associated Problems Recent Progress Patient-Stated? Author movement Exercise On track(2021 11:16 AM EDT) No Pankaj Mcadams Note: Try gentle movement like chair yoga, t'ai chi and qigong. Health Roller Shop Utility Worker will send hand-outs. Use resistance bands. Health Roller Shop Utility Worker will request a set be mailed. Movement [...] for sample meal ideas in the USPS [facility] Keep food log until you are seen by the dieititian. Record everything you eat or drink, include time eaten and any emotional changes that are significant. relaxation/sleep Lifestyle No Pankaj Mcadams Note: Try some meditation/relaxation apps when I wake in the night and can't go back to sleep. Health Roller Shop Utility Worker will send some to try. Tried apps but don't really like them as I like the quiet when going to sleep. [facility] 04/23 documented as of this encounter Visit Diagnoses Not on filedocumented in this encounter Care Teams Water Plant Pump Operator Relationship Specialty Start Date End Date Justino Lucia MD PCP - General Family Medicine 10/04/21 07/21/24 documented as of this encounter
--- OUTSIDE RECORDS SUMMARY | 2024-10-07 20:37 | XMS_ITS | Encounter Summary ---
Author Organization [facility] [place] [address] Care Team Providers Care Web Development Consultant Name Role Phone Justino Lucia MD Primary Care Provider [phone] Reason for Visit * Reason Onset Date Comments Medication Refill 10/03/2023 Encounter Details Date Type Department Care Team (Late st Contact Info) Description 10/03/2023 Refill [place] [address] Candy Clifford MD [facility] DR NICHOL[facility] PERDOM[place] [address] Social History Tobacco Use Types [...] 9:00 AM EDT Laboratory Appointment Lab [address] [place] [address] 01/20/2025 9:30 AM EDT Appointment [place] [address] Ana Ho MD [facility] [place] [address] 01/20/2025 11:00 AM EDT Office [place] [address] Ana Ho MD [facility] [place] [address] 01/20/2025 12:00 PM EDT Office [place] [address] Candy Clifford MD [facility] DR NICHOL[facility] PERDOM[place] [address] documented as of this encounter Goals Goal Patient Goal Type Associated Problems Recent Progress Patient-Stated? Author movement Exercise On track(2021 11:16 AM EDT) No Pankaj Mcadams Note: Try gentle movement like chair yoga, t'ai chi and qigong. Health Gear Tooth Grinding Machine Operator will send hand-outs. Use resistance bands. Health Gear Tooth Grinding Machine Operator will request a set be [...] can't go back to sleep. Health Gear Tooth Grinding Machine Operator will send some to try. Tried apps but don't really like them as I like the quiet when going to sleep. [facility] 04/23 documented as of this encounter Visit Diagnoses Not on filedocumented in this encounter Care Teams Web Development Consultant Relationship Specialty Start Date End Date Justino Lucia MD PCP - General Family Medicine 10/04/21 07/21/24 documented as of this encounter
--- OUTSIDE RECORDS SUMMARY | 2024-10-07 20:38 | XMS_ITS | Encounter Summary ---
Author Organization [facility] [place] [address] Care Team Providers Care Finance Teacher Name Role Phone Justino Lucia MD Primary Care Provider [phone] Encounter Details Date Type Department Care Team (Late st Contact Info) Description 06/28/2022 12:00 PM EDT Notes Only Weight and Wellness at [facility] [address] [place] [phone] Social History Tobacco Use Types Packs/Day Years [...] 9:00 AM EDT Laboratory Appointment Lab [address] [place] [address] 01/20/2025 9:30 AM EDT Appointment [place] [address] Ana Ho MD [facility] [place] [place] [address] 01/20/2025 11:00 AM EDT Office [place] [address] Ana Ho MD [facility] [place] [address] 01/20/2025 12:00 PM EDT Office Visit Weight Center at [facility] [place] [address] Candy Clifford MD [facility] DR NICHOLAS [place] [address] documented as of this encounter Goals Goal Patient Goal Type Associated Problems Recent Progress Patient-Stated? Author movement Exercise On track(2021 11:16 AM EDT) No Pankaj Mcadams Note: Try gentle movement like chair yoga, t'ai chi and qigong. Health Guide Visitor will send hand-outs. Use resistance bands. Health Guide Visitor will request a set be mailed. Movement [...] for sample meal ideas in the USPS [facility] Keep food log until you are seen by the dieititian. Record everything you eat or drink, include time eaten and any emotional changes that are significant. relaxation/sleep Lifestyle No Pankaj Mcadams Note: Try some meditation/relaxation apps when I wake in the night and can't go back to sleep. Health Guide Visitor will send some to try. Tried apps but don't really like them as I like the quiet when going to sleep. [facility] 04/23 documented as of this encounter Visit Diagnoses Not on filedocumented in this encounter Care Teams Finance Teacher Relationship Specialty Start Date End Date Justino Lucia MD PCP - General Family Medicine 10/04/21 07/21/24 documented as of this encounter
--- OUTSIDE RECORDS SUMMARY | 2024-10-07 20:38 | XMS_ITS | Encounter Summary ---
Author Organization [facility] [place] [address] Care Team Providers Care Second Chef Name Role Phone Justino Lucia MD Primary Care Provider [phone] Encounter Details Date Type Department Care Team (Late Contact Info) Description 05/23/2022 12:00 PM EDT Notes Only Weight and Wellness at [facility] [address] [place] [phone] Arrived Social History Tobacco Use Types Packs/Day [...] 9:00 AM EDT Laboratory Appointment Lab [address] [place] [address] 01/20/2025 9:30 AM EDT [place] [address] Ana Ho MD [facility] [place] [address] 01/20/2025 11:00 AM EDT Office [place] [address] Ana Ho MD [facility] [place] [address] 01/20/2025 12:00 PM EDT Office Visit Weight Center at [facility] [place] [address] Candy Clifford MD [facility] DR NICHOLAS PERDOM[place] [address] documented as of this encounter Goals Goal Patient Goal Type Associated Problems Recent Progress Patient-Stated? Author movement Exercise On track(2021 11:16 AM EDT) No Pankaj Mcadams Note: Try gentle movement like chair yoga, t'ai chi and qigong. Health Drum Drier Operator will send hand-outs. Use resistance bands. Health Drum Drier Operator will request a set be mailed. [...] opportunity to start with protein (cottage cheese, albanian yogurt, protein smoothies, chicken or chicken salad [...] and can't go back to sleep. Health Drum Drier Operator will send some to try. Tried apps but don't really like them as I like the quiet when going to sleep. [facility] 04/23 documented as of this encounter Visit Diagnoses Not on filedocumented in this encounter Care Teams Second Chef Relationship Specialty Start Date End Date Justino Lucia MD PCP - General Family Medicine 10/04/21 07/21/24 documented as of this encounter
--- OUTSIDE RECORDS SUMMARY | 2024-10-07 20:38 | XMS_ITS | Encounter Summary ---
Author Organization [facility] [place] [address] Care Team Providers Care Welder Production Line Gas Name Role Phone Justino Lucia MD Primary Care Provider [phone] Encounter Details Date Type Department Care Team (Latest Contact Info) Description 2022 9:00 AM EDT TH Visit (TeleHealth) Weight and Wellness at [facility] [address] [place] [phone] Pankaj Mcadams Class 3 severe obesity due [...] you soon. Be well, Pankaj Mcadams Health Skein Winding Operator documented in this encounter Progress Notes * Pankaj Mcadams - 2022 9:00 AM EDT Telma Richter is here today [...] chair yoga, t'ai chi and qigong. Health Skein Winding Operator will send hand-outs. Use resistance bands. Health Skein Winding Operator will request a set be mailed. ??? [...] and can't go back to sleep. Health Skein Winding Operator will send some to try. Tried apps but don't really like them as I like the quiet when going to sleep. [facility] 04/23 Exercise PT, walking more,chair yoga 3 times during the week Sleep Not discussed Stress Managing okay, enjoying P group Self-monitoring What are you doing now? If no personal accountability process, what can you add? [x]Food log: [] daily [x] intermittent []Weigh-ins: [] daily [] weekly [x]Exercise log [x]Gratitude journal []Other: Food Behaviors (optional): ozempic is helping with cravings Future follow-up with health athletic coach will address identified areas of concern: [...] increasing mindfulness throughout the day. Your health athletic coach is well-equipped to guide you to find something to look forward to everyday. Eating behaviors: many people benefit from restricting the hours in which they eat. You can choose an eating window of 8-12 hours to start. Make a pact with yourself that you will not take in anything with caloric content outside this window. Your professor of environmental engineering may make further recommendations documented in this encounter Plan of Treatment Upcoming Encounters Date Type Department Care Team (Late st Contact Info) Description 01/20/2025 9:00 AM EDT Laboratory Appointment Lab [address] [place] [address] 01/20/2025 9:30 AM EDT [place] [address] Ana Ho MD [facility] [place] [address] 01/20/2025 11:00 AM EDT Office [place] [phone] Ana Ho MD [facility] [place] [address] 01/20/2025 12:00 PM EDT Office [place] [address] Candy Clifford MD [facility] DR NICHOL[facility] PERDOM[place] [address] documented as of this encounter Goals Goal Patient Goal Type Associated Problems Recent Progress Patient-Stated? Author movement Exercise On track(2021 11:16 AM EDT) No Pankaj Mcadams Note: Try gentle movement like chair yoga, t'ai chi and qigong. Health Skein Winding Operator will send hand-outs. Use resistance bands. Health Skein Winding Operator will request a set be mailed. [...] opportunity to start with protein (cottage cheese, pap[place] yogurt, protein smoothies, chicken or chicken [...] and can't go back to sleep. Health Skein Winding Operator will send some to try. Tried apps but don't really like them as I like the quiet when going to sleep. [facility] 04/23 documented as of this encounter Visit Diagnoses Diagnosis Class 3 severe obesity due to excess calories with serious comorbidity and body mass index (BMI) of 60.0 to 69.9 in adult documented in this encounter Care Teams Welder Production Line Gas Relationship Specialty Start Date End Date Justino Lucia MD PCP - General Family Medicine 10/04/21 07/21/24 documented as of this encounter
--- OUTSIDE RECORDS SUMMARY | 2024-10-07 20:38 | XMS_ITS | Encounter Summary ---
Author Organization [facility] Address [facility] [place] [address] Care Team Providers Care Epilepsy Physician Name Role Phone Justino Lucia MD Primary Care Provider [phone] Reason for Referral * Consultation (Routine) - Closed Specialty Diagnoses / Procedures Referred By Contac t Referred To Contact Weight and Wellness Diagnoses Class 3 severe obesity with serious comorbidity and body mass index (BMI) of 50.0 to 59.9 in adult, unspecified obesity type ACT Group Candy Clifford MD [facility] [place] [address] [facility] [place] [address] Referral ID Status Reason Start Date Expiration Date V isits Requested Visits Authorized [id number] Closed Consult, Test & Treat 12/05/2022 12/05/2023 1 1 Encounter Details Date Type Department Care Team (Late st Contact Info) Description 12/05/2022 Orders [place] [address] Candy Clifford MD [facility] [place] [address] Class 3 severe obesity with [...] 9:00 AM EDT Laboratory Appointment Lab [address] [place] [phone] 01/20/2025 9:30 AM EDT [place] [address] Ana Ho MD [facility] [place] [address] 01/20/2025 11:00 AM EDT Office Visit Gastroenterology at [place] [phone] Ana Ho MD [facility] [place] [address] 01/20/2025 12:00 PM EDT Office [place] [address] Candy Clifford MD [facility] DR NICHOL[facility] [place] [address] Scheduled Referrals Name Type Priority Associated Diagnoses Orde r Schedule Amb Referral to [facility] Psych Evaluation Outpatient Referral Routine Class 3 [...] chair yoga, t'ai chi and qigong. Health Patient Consumer Marketer will send hand-outs. Use resistance bands. Health Patient Consumer Marketer will request a set be mailed. Movement [...] for sample meal ideas in the USPS [facility] Keep food log until you are seen by the dieititian. Record everything you eat or drink, include time eaten and any emotional changes that are significant. relaxation/sleep Lifestyle No Pankaj Mcadams Note: Try some meditation/relaxation apps when I wake in the night and can't go back to sleep. Health Patient Consumer Marketer will send some to try. Tried apps but don't really like them as I like the quiet when going to sleep. [facility] 04/23 documented as of this encounter Visit Diagnoses Diagnosis Class 3 severe obesity with serious comorbidity and body mass index (BMI) of 50.0 to 59.9 in adult, unspecified obesity type documented in this encounter Care Teams Epilepsy Physician Relationship Specialty Start Date End Date Justino Lucia MD PCP - General Family Medicine 10/04/21 07/21/24 documented as of this encounter
--- OUTSIDE RECORDS SUMMARY | 2024-10-07 20:38 | XMS_ITS | Encounter Summary ---
Author Organization [facility] [place] [address] Care Team Providers Care Medart Operator Name Role Phone Justino Lucia MD Primary Care Provider [phone] Encounter Details Date Type Department Care Team [...] 9:00 AM EDT Laboratory Appointment Lab [address] [place] [phone] 01/20/2025 9:30 AM EDT [place] [address] Ana Ho MD [facility] [place] [address] 01/20/2025 11:00 AM EDT Office [place] [address] Ana Ho MD [facility] [place] [address] 01/20/2025 12:00 PM EDT Office [place] [address] Candy Clifford MD [facility] DR NICHOLAS [place] [address] documented as of this encounter Goals Goal Patient Goal Type Associated Problems Recent Progress Patient-Stated? Author movement Exercise On track(2021 11:16 AM EDT) No Pankaj Mcadams Note: Try gentle movement like chair yoga, t'ai chi and qigong. Health Sports Equipment Repairer will send hand-outs. Use resistance bands. Health Sports Equipment Repairer will request a set be mailed. Movement Exercise On track(2021 11:16 AM EDT) No Pankaj Mcadams Note: Look around town, [email or web address] center, gyms, for a class to participate [...] for sample meal [facility] food [facility] until you are seen by the dieititian. Record everything you eat or drink, include time eaten and any emotional changes that are significant. relaxation/sleep Lifestyle No Pankaj Mcadams Note: Try some meditation/relaxation apps when I wake in the night and can't go back to sleep. Health Sports Equipment Repairer will send some to try. Tried apps but don't really like them as I like the quiet when going to sleep. [facility] 04/23 documented as of this encounter Visit Diagnoses Not on filedocumented in this encounter Care Teams Medart Operator Relationship Specialty Start Date End Date Justino Lucia MD PCP - General Family Medicine 10/04/21 07/21/24 documented as of this encounter
--- OUTSIDE RECORDS SUMMARY | 2024-10-07 20:38 | XMS_ITS | Encounter Summary ---
Author Organization [facility] Address [facility] [place] [address] Care Team Providers Care Hardware Test Engineer Name Role Phone Justino Lucia MD Primary Care Provider [phone] Reason for Visit * Consultation (Routine) - Closed Specialty Diagnoses / Procedures Referred By Contac t Referred To Contact Weight and Wellness Diagnoses Class 3 severe obesity with serious comorbidity and body mass index (BMI) of 50.0 to 59.9 in adult, unspecified obesity type ACT Group Candy Clifford MD [facility] [address] NICHOLAS [place] [address] [facility] [place] [address] Referral ID Status Reason Start Date Expiration Date V isits Requested Visits Authorized [id number] Closed Consult, Test & Treat 12/05/2022 12/05/2023 1 1 Encounter Details Date Type Department Care Team (Latest Contact Info) Description 12/10/2022 2:00 PM EDT TH Visit (TeleHealth) [place] [address] Kay Tao, PhD [facility] [address] [place] [address] Class 3 severe obesity with [...] telehealth. Telma is located at home in [place] SUBJECTIVE: Chief Complaint: Telma Richter is a [...] that she relies on her daughter to cafe cook in the evening and at times her daughter prepares meals that are not in line with Telma's health goals. PLAN: Telma Richter has accepted participation in the [employer]. Assigned Homework: Read the Habits article and complete a pattern smashing activity documented in this encounter Plan of Treatment Upcoming Encounters Date Type Department Care Team (Late st Contact Info) Description 01/20/2025 9:00 AM EDT Laboratory Appointment Lab 3L [place] [address] 01/20/2025 9:30 AM EDT [place] [address] Ana Ho MD [facility] [place] [address] 01/20/2025 11:00 AM EDT Office [place] [address] Ana Ho MD [facility] [place] [address] 01/20/2025 12:00 PM EDT Office [place] [address] Candy Clifford MD [facility] [address] NICHOL[address] [place] [address] Scheduled Referrals Name Type Priority Associated Diagnoses Orde r Schedule Amb Referral to [facility] Psych Evaluation Outpatient Referral Routine Class [...] chair yoga, t'ai chi and qigong. Health Can Sorter will send hand-outs. Use resistance bands. Health Can Sorter will request a set be mailed. Movement [...] and can't go back to sleep. Health Can Sorter will send some to try. Tried apps but don't really like them as I like the quiet when going to sleep. [facility] 04/23 documented as of this encounter Visit Diagnoses Diagnosis Class 3 severe obesity with serious comorbidity and body mass index (BMI) of 50.0 to 59.9 in adult, unspecified obesity type documented in this encounter Care Teams Hardware Test Engineer Relationship Specialty Start Date End Date Justino Lucia MD PCP - General Family Medicine 10/04/21 07/21/24 documented as of this encounter
--- OUTSIDE RECORDS SUMMARY | 2024-10-07 20:38 | XMS_ITS | Encounter Summary ---
Author Organization [facility] [place] [address] Care Team Providers Care Automotive Worker Name Role Phone Justino Lucia MD Primary Care Provider [phone] Encounter Details Date Type Department Care Team (Late st Contact Info) Description 10/29/2022 5:30 PM EST Notes [place] [address] Social History Tobacco Use Types Packs/Day Years [...] 9:00 AM EDT Laboratory Appointment Lab 3[address] [place] [address] 01/20/2025 9:30 AM ED[place] [address] Ana Ho MD [facility] [place] [address] 01/20/2025 11:00 AM EDT Office [place] [address] Ana Ho MD [facility] [place] [address] 01/20/2025 12:00 PM EDT Office Visit Weight Center at [facility] [place] [address] Candy Clifford MD [facility] DR NICHOLAS [place] [address] documented as of this encounter Goals Goal Patient Goal Type Associated Problems Recent Progress Patient-Stated? Author movement Exercise On track(2021 11:16 AM EDT) No Pankaj Mcadams Note: Try gentle movement like chair yoga, t'ai chi and qigong. Health Hydroelectric Machinery Mechanic Helper will send hand-outs. Use resistance bands. Health Hydroelectric Machinery Mechanic Helper will request a set be mailed. [...] for [facility] Keep food log until you are seen by the dieititian. Record everything you eat or drink, include time eaten and any emotional changes that are significant. relaxation/sleep Lifestyle Pankaj Russ Note: Try some meditation/relaxation apps when I wake in the night and can't go back to sleep. Health Hydroelectric Machinery Mechanic Helper will send some to try. Tried apps but don't really like them as I like the quiet when going to sleep. [facility] 04/23 documented as of this encounter Visit Diagnoses Not on filedocumented in this encounter Care Teams Automotive Worker Relationship Specialty Start Date End Date Justino Lucia MD PCP - General Family Medicine 10/04/21 07/21/24 documented as of this encounter
--- OUTSIDE RECORDS SUMMARY | 2024-10-07 20:38 | XMS_ITS | Encounter Summary ---
Author Organization [facility] [place] [address] Care Team Providers Care Issue Clerk Name Role Phone Justino Lucia MD Primary Care Provider [phone] Reason for Visit * Auth/Cert Specialty Diagnoses / Procedures Referred By Contac t Referred To Contact Diagnoses 1) cirrhosis with h/o gastric varices in 2018 (Dr. Ramon), overdue for screening EGD; 2) due for colonoscopy with h/o polyps in 2017 Procedures PRO UPPER GI ENDOSCOPY, DIAGNOSTIC PRO COLONOSCOPY, DIAGNOSTIC EGD, UPPER GI ENDOSCOPY COLONOSCOPY, DIAGNOSTIC Leo Rojas MD [facility] Referral ID Status Reason Start Date Expiration Date Visits Re quested Visits Authorized [id number] 1 1 Encounter Details Date Type Department Care Team (Latest Contact Info) Description 06/05/2022 9:26 AM EDT - 06/05/2022 12:39 PM EDT Hospital Encounter [place] [address] Leo Rojas MD Discharge Disposition: Home Social History Tobacco Use [...] the day after the procedure, use an uvsi-rez-thsyvot spray to numb your throat. Sucking on [...] occurs, please contact your Doctor. Please call [phone] before 8pm Mon-Fri with problems, questions or concerns. If you call after 8pm or on weekends, call the Hospital at [phone] and ask to speak to the Enrollment Counselor extension supervisor and the dexigraph operator will contact that person for you. When should you call for help? Call [phone] anytime you think you may need emergency [...] any problems. Where can you learn more? [facility] View your After Visit Summary and more online at [email or web address] If you would like to provide [...] cost to you. Content Version: 12.2 ?? 6267-4896 [employer]. Care instructions adapted under license by [facility]. If you have questions about a medical condition or this instruction, always ask your healthcare professional. [employer] disclaims any warranty or liability for your [...] occurs, please contact your Doctor. Please call [phone] before 8pm Mon-Fri with problems, questions or concerns. If you call after 8pm or on weekends, call the Hospital at [phone] and ask to speak to the Enrollment Counselor extension supervisor and the dexigraph operator will contact that person for you. When should you call for help? Call [phone] anytime you think you may need emergency [...] any problems. Where can you learn more? [facility] View your After Visit Summary and more online at [email or web address] If you would like to provide feedback about your hospital experience, please call the Office of Patient and Family Relations at . If you have received this After Visit Summary in error, please immediately return it in person to the department, or notify the [facility] Privacy Office by calling toll free at between the hours of 8AM and 5PM to arrange for our retrieval of the documents at no cost to you. Content Version: 12.2 ?? 4361-6616 [employer]. Care instructions adapted under license by [facility]. If you have questions about a medical condition or this instruction, always ask your healthcare professional. [employer] disclaims any warranty or liability for your [...] 01/20/2025 9:00 AM EDT Laboratory Appointment Lab [address] [address] 01/20/2025 9:30 AM EDT [place] [address] Ana Ho MD [facility] [place] [address] 01/20/2025 11:00 AM EDT Office [place] [address] Ana Ho MD [facility] [place] [address] 01/20/2025 12:00 PM EDT Office [place] [address] Candy Clifford MD [facility] [address] NICHOLAS PERDOMO[place], [place] [phone] documented as of this encounter Goals Goal Patient Goal Type Associated Problems Recent Progress Patient-Stated? Author movement Exercise On track(2021 11:16 AM EDT) No Pankaj Mcadams Note: Try gentle movement like chair yoga, t'ai chi and qigong. Health Knitting Supervisor will send hand-outs. Use resistance bands. Health Knitting Supervisor will request a set be mailed. [...] and can't go back to sleep. Health Knitting Supervisor will send some to try. Tried [...] 10:38 AM EDT Colonoscopy, Lorenzo García, Snare ([id number]) 06/05/2022 10:37 AM EDT Hepatic cirrhosis, unspecified hepatic cirrhosis type, unspecified whether ascites present History of colon polyps Screening for colon cancer Upper GI Endoscopy, Diagnostic ([id number]) 06/05/2022 10:37 AM EDT Hepatic cirrhosis, unspecified hepatic cirrhosis type, unspecified whether ascites present History of colon polyps Screening for colon cancer documented in this encounter Results * Specimen to Pathology (06/05/2022 11:15 AM EDT) AP Specimen 06/05/2022 11:1 5 AM EDT 06/05/2022 11:15 AM EDT Narrative [facility] - 06/05/2022 11:15 AM EDT Specimen requisition ordered. ??Separate Pathology report to follow Leo Rojas MD PATHOLOGY/CYTOLOGY O RDERABLES [facility] [place] [address] * Surgical Pathology Report (06/05/2022 11:10 AM EDT) Final Diagnosis [id number] ? Location: 4T; EA08; A The signing pathologist has (i) examined the relevant preparation(s) for the specimen(s) and (ii) rendered or confirmed the diagnosis(es). . ?Surgical Pathology DIAGNOSIS A - Transverse colon ?? diminutive polyp, resection: - ??Fragments of tubular adenoma. Electronically signed by: ?Hina GRACE PhD, Era Verified: ??06/14/2022 9:47 ?? Pathologist Performed at: ??-[facility] [place], [place], [place] SPECIMEN(S) SUBMITTED A - Transverse colon ?? diminutive polyp, resection (1) CLINICAL INFORMATION 72-year-old female with history of polyps, surveillance colonoscopy SPECIMEN PROCESSING A - Labeled/Fixative : TC, formalin. Quantity/Size: Three, averaging 0.6 cm. Tissue Description: Soft, pink, polypoid tissues. Sections/Process ing: Submitted en toto ??in 1 cassette labeled A1. ??sns 06/14/2022 9:47 AM EDT [facility] GI Biopsy 06/05/2022 11:1 0 AM EDT 06/05/2022 11:10 AM EDT Leo Rojas MD PATHOLOGY/CYTOLOGY O RDERABLES [facility] [place] [address] * UPPER GI ENDOSCOPY (06/05/2022 10:39 AM EDT) UPPER GI ENDOSCOPY [facility] Endoscopy ___ Procedure Date: 06/05/2022 10:39 AM ? Patient Name: Telma Rober ? Date of : 1950 ? Age: 72 ? Order #: [id number] ? Instrument Name: [id number]- [id number] ? ___ Procedure: ? Upper GI endoscopy [...] * COLONOSCOPY (06/05/2022 10:38 AM EDT) COLONOSCOPY [facility] Endoscopy Procedure Date: 06/05/2022 10:38 AM ? Patient Name: Telma Richter ? Date of : 1950 ? Age: 72 ? Order #: [id number] ? Instrument Name: [id number]- [id number] ? Procedure: ? Colonoscopy Indications: ? High risk colon cancer ? surveillance: Personal history of ? colonic polyps Providers: ? Leo Rojas, Lakisha Schrader ? Matthew Referring MD: ?Justino Lucia Medicines: [...] preparation was evaluated ? using the BBPS ([place] Bowel ? Preparation Scale) with scores of: [...] CONTINUOUS, Starting on 06/05/22 at 1015, Until 06/05/22 at 1233, Endoscopy (Day of Procedure) Restarted 06/05/2022 11:17 AM EDT New Bag 06/05/2022 10:19 AM EDT 100 mL/hr 100 mL/hr documented in this encounter Active and Recently Administered Medications Times are shown in EDT. Continuous Medication Order 06/03/2022 06/04/2022 06/05/2022 lactated ringers infusion (CANCELED) 100 mL/hr, Intravenous, CONTINUOUS, Starting on 06/05/22 at 1015, Until 06/05/22 at 1233, Endoscopy (Day of Procedure) 1019 (New Bag - Prov ider: Lali Zapata RN)1116 (Paused - Provider: Dung Hester CRNA - Comment: Switch to gravity)1117 (Restarted - Provider: Dung Hester CRNA) documented in this encounter Care Teams Issue Clerk Relationship Specialty Start Date End Date Justino Lucia MD PCP - General Family Medicine 10/04/21 07/21/24 documented as of this encounter
--- OUTSIDE RECORDS SUMMARY | 2024-10-07 20:38 | XMS_ITS | Encounter Summary ---
Author [facility] Address [facility] [place] [address] Care Team Providers Care Youth Court Judge Name Role Phone Justino Lucia MD Primary Care Provider [phone] Encounter Details Date Type Department Care Team (Latest Contact Info) Description 12/31/2022 2:00 PM EDT TH Visit (TeleHealth) [place] [phone] Kay Tao, PhD [facility] DR NICHOLAS [place] [address] Class 3 severe obesity with serious comorbidity [...] 01/20/2025 9:00 AM EDT Laboratory Appointment Lab 3[place] [address] 01/20/2025 9:30 AM EDT Appointment Ultrasound at [place] [phone] Ana Ho MD [facility] [place] [address] 01/20/2025 11:00 AM EDT Office [place] [address] Ana Ho MD [facility] [place] [place] [address] 01/20/2025 12:00 PM EDT Office Visit Weight Center at [place] [phone] Candy Clifford MD [facility] DR NICHOLAS [place] [address] documented as of this encounter Goals Goal Patient Goal Type Associated Problems Recent Progress Patient-Stated? Author movement Exercise On track(2021 11:16 AM EDT) No Pankaj Mcadams Note: Try gentle movement like chair yoga, t'ai chi and qigong. Health Shift Mechanic will send hand-outs. Use resistance bands. Health Shift Mechanic will request a set be mailed. [...] opportunity to start with protein (cottage cheese, syrian yogurt, protein smoothies, chicken or chicken salad [...] and can't go back to sleep. Health Shift Mechanic will send some to try. Tried apps but don't really like them as I like the quiet when going to sleep. [facility] 04/23 documented as of this encounter Visit Diagnoses Diagnosis Class 3 severe obesity with serious comorbidity and body mass index (BMI) of 50.0 to 59.9 in adult, unspecified obesity type documented in this encounter Care Teams Youth Court Judge Relationship Specialty Start Date End Date Justino Lucia MD PCP - General Family Medicine 10/04/21 07/21/24 documented as of this encounter
--- OUTSIDE RECORDS SUMMARY | 2024-10-07 20:38 | XMS_ITS | Encounter Summary ---
[place] [address] Care Team Providers Care Burrer Marker Axle Name Role Phone Justino Lucia MD Primary Care Provider [phone] Reason for Referral * Consultation (Routine) - Closed Specialty Diagnoses / Procedures Referred By Contac t Referred To Contact Gastroenterology Diagnoses Hepatic cirrhosis, unspecified hepatic cirrhosis type, unspecified whether ascites present Gastric varices Justino Lucia MD [address] [place] [address] [place] [address] [facility] Gastro [address] [place] [phone] Referral ID Status Reason Start Date Expiration Date V isits Requested Visits Authorized [id number] Closed Consult, Test & Treat PCP Updated and/or Approved 11/22/2022 11/22/2023 12 12 Encounter Details Date Type Department Care Team (Late st Contact Info) Description 11/22/2022 Transcribe Orders eDH Incoming Referrals [phone] Justino Lucia MD [address] [place] [address] [address] [place], [place] [id number] Hepatic cirrhosis, unspecified hepatic cirrhosis type, unspecified [...] 9:00 AM EDT Laboratory Appointment Lab [address] [place] [address] 01/20/2025 9:30 AM EDT Appointment Ultrasound at [place] [address] Ana Ho MD [facility] [place] [address] 01/20/2025 11:00 AM EDT Office Visit Gastroenterology at [address] Ana Ho MD [facility] [place] [address] 01/20/2025 12:00 PM EDT Office Visit Weight Center at [place] [phone] Candy Clifford MD [facility] DR NICHOLAS PERDOM[place] [address] Scheduled Referrals Name Type Priority Associated Diagnoses [...] yoga, t'ai chi and qigong. Health Cell Phone Repair Technician will send hand-outs. Use resistance bands. Health Cell Phone Repair Technician will request a set be mailed. [...] sample meal ideas in the USPS [facility] Keep food log until you are seen by the dieititian. Record everything you eat or drink, include time eaten and any emotional changes that are significant. relaxation/sleep Lifestyle No Pankaj Mcadams Note: Try some meditation/relaxation apps when I wake in the night and can't go back to sleep. Health Cell Phone Repair Technician will send some to try. Tried apps but don't really like them as I like the quiet when going to sleep. [facility] 04/23 documented as of this encounter Visit Diagnoses Diagnosis Hepatic cirrhosis, unspecified hepatic cirrhosis type, unspecified whether ascites present Gastric varices Varices of other sites documented in this encounter Care Teams Burrer Marker Axle Relationship Specialty Start Date End Date Justino Lucia MD PCP - General Family Medicine 10/04/21 07/21/24 documented as of this encounter
--- OUTSIDE RECORDS SUMMARY | 2024-10-07 20:38 | XMS_ITS | Encounter Summary ---
Author Organization [facility] [place] [address] Care Team Providers Care Carpet Finishing Supervisor Name Role Phone Justino Lucia MD Primary Care Provider [phone] Encounter Details Date Type Department Care Team (Latest Contact Info) Description 01/01/2023 8:45 AM EDT Laboratory Appointment Lab 3[address] [place] [address] Class 3 severe obesity with serious comorbidity [...] 9:00 AM EDT Laboratory Appointment Lab [address] [place] [address] 01/20/2025 9:30 AM EDT [place]ointment [place] [address] Ana Ho MD [facility] [place] [address] 01/20/2025 11:00 AM EDT Office Visit [place] [address] Ana Ho MD [facility] [place] [address] 01/20/2025 12:00 PM EDT Office [place] [address] Candy Clifford MD [facility] DR NICHOLAS [place] [address] documented as of this encounter Goals Goal Patient Goal Type Associated Problems Recent Progress Patient-Stated? Author movement Exercise On track(2021 11:16 AM EDT) No Pankaj Mcadams Note: Try gentle movement like chair yoga, t'ai chi and qigong. Health Contingents Supervisor will send hand-outs. Use resistance bands. Health Contingents Supervisor will request a set be mailed. Movement Exercise On track(2021 11:16 AM EDT) No aPnkaj Mcadams Note: Look around town, senior center, [...] and can't go back to sleep. Health Contingents Supervisor will send some to try. Tried [...] 8:48 AM EDT) Neutrophil % 59.0 % [facility] Neutrophil Absolute 2.81 1.70 - 6.10 x10(3)/[facility] Lymph % 29.1 % [facility] Lymphocytes Abs 1.4 0.9 - 3.2 x10(3)/[facility] Monocyte % 9.4 % [facility] Monocyte Abs 0.4 0.3 - 0.9 x10(3)/[facility] Eos % 1.9 % [facility] Eosinophils Abs 0.1 0.0 - 0.4 x10(3)/[facility] Basophil % 0.4 % [facility] Baso Absolute 0.0 0.0 - 0.1 x10(3)/[facility] Immature Gran % 0.20 % [facility] Comment: Immature granulocytes(IG's)percentage and absolute count will include metamyelocytes, myelocytes, and promyelocytes. Blood smears from CBCs yielding IG's will be scanned manually for concordance. If this scan disagrees with the automated IG or if promyelocytes are noted, a manual differential will be performed. Immature Gran Absolute 0.01 0.00 - 0.04 x10(3)/[facility] Blood 01/01/2023 8:48 AM EDT 01/01/2023 9:03 AM EDT Narrative Resulting Agency Comment Spec In Lab Glenn CHOWDHURY HEMATOLOGY ORDERABLE S [facility] [place] [address] * Hemogram (01/01/2023 8:48 AM EDT) White Blood Cell 4.8 4.0 - 9.5 x10(3)/[facility] Red Blood Cell 4.81 4.00 - 5.21 x10(6)/[facility] Hemoglobin 14.7 11.7 - 15.5 g/dL [facility] Hematocrit 43.0 35.7 - 45.8 % [facility] Mean Cell Volume 89.4 82.6 - 94.4 fL [facility] Mean Cell Hemoglobin 30.6 27.1 - 32.0 pg [facility] Mean Cell Hemoglobin Concentration 34.2 31.7 - 35.0 g/dL [facility] Platelet 209 145 - 357 x10(3)/[facility] RDW Standard Deviation 44.0 37.0 - 46.0 fL [facility] RDW coefficient of variation 13.4 11.5 - 14.1 % [facility] Mean Platelet Volume 10.0 7.6 - 12.9 fL [facility] NRBC% auto 0.0 % [facility] NRBC Absolute 0.000 0.000 - 0.000 x10(3)/[facility] Blood 01/01/2023 8:48 AM EDT 01/01/2023 9:03 AM EDT Narrative Resulting Agency Comment Spec In Lab Glenn CHOWDHURY HEMATOLOGY ORDERABLE S [facility] [place] [address] * Comprehensive metabolic panel (non-fasting) (01/01/2023 8:48 AM EDT) Glucose 90 65 - 199 mg/dL [facility] Comment:Diabetes: >=200 mg/d L plus symptoms Blood Urea Nitrogen 12 8 - 18 mg/dL [facility] Creatinine 0.77 0.70 - 1.20 mg/dL [facility] Sodium 142 135 - 145 mmol/L [facility] Potassium 3.9 3.5 - 5.0 mmol/L [facility] Comment: Please note: ??Patients with WBC >100,000 may have falsely elevated Potassium levels. ??For accurate Potassium quantification in these patients send serum separator tube (gold top) for subsequent determinations. ??Contact the Clinical Chemistry Laboratory if there are any questions. Chloride 105 98 - 107 mmol/L [facility] Carbon Dioxide 29 22 - 31 mmol/L [facility] Anion Gap 8 5 - 15 mmol/L [facility] Calcium 9.2 8.5 - 10.5 mg/dL [facility] Protein, Total 6.8 6.1 - 8.0 g/dL [facility] Albumin 3.8 3.2 - 5.2 g/dL [facility] Aspartate Aminotransferase 28 0 - 30 unit/L [facility] Alanine Aminotransferase 16 0 - 30 unit/L [facility] Alkaline Phosphatase 84 35 - 105 unit/L [facility] Bilirubin, Total 1.0 0.2 - 1.3 mg/dL [facility] Est Glomerular Filtration Rate 82 >=60 mL/min/1. 73 m?? [facility] Comment: This patient's estimated GFR was [...] Hickey MD CHEMISTRY ORDERABLES Performing Organization Address [facility] Co de Phone Number [facility] [place] [address] * (ABNORMAL) Prothrombin Time (01/01/2023 8:48 AM EDT) Prothrombin Time 13.1(H) 9.4 - 12.5 sec [facility] International Normalization Ratio 1.1 [facility] Comment: An INR <2.0 indicates adequate [...] MD HEMATOLOGY ORDERABLE S Performing Organization Address [facility] Co de Phone Number [facility] [place] [address] * Ferritin (01/01/2023 8:48 AM EDT) Ferritin 56 30 - 400 ng/mL [facility] Comment: Pediatric reference ranges not verified at [facility], interpret with caution. Reference ranges for females greater than 50 years of age approach values for men, i.e., 30-400 ng/mL. Blood 01/01/2023 8:48 AM EDT 01/01/2023 9:03 AM EDT Narrative Resulting Agency Comment Spec In Lab Candy Clifford MD CHEMISTRY ZACK NELSON [facility] [place] [address] * Hemoglobin A1c (01/01/2023 8:48 AM EDT) Hemoglobin A1c 4.8 4.3 - 5.6 % [facility] Comment: Reference Range: 4.3 - 5.6% [...] Mellitus, Diabetes Care 2013; 36: Suppl. 1, O27-48 Estimated Average Glucose See note mg/dL [facility] Comment: Estimated Average Glucose not appropriate [...] into estimated average glucose values. ??Diabetes Care 2008:31(8):7071-1594. Blood 01/01/2023 8:48 AM EDT 01/01/2023 9:03 AM EDT Narrative Resulting Agency Comment Spec In Lab Candy Clifford MD CHEMISTRY ORDE PANOSOLOFELIA Performing Organization Address City/[facility]/ZIP Co de Phone Number [facility] [place] [address] * (ABNORMAL) Insulin, total (01/01/2023 8:48 AM EDT) Insulin 25.2(H) 2.6 - 24.9 mcunit/mL [facility] Comment:Reference intervals derived from fasting individuals Blood 01/01/2023 8:48 AM EDT 01/01/2023 9:03 AM EDT Narrative Resulting Agency Comment Spec In Lab Candy Clifford MD CHEMISTRY ORDE PANOSOLOFELIA Performing Organization Address City/[facility]/ZIP Co de Phone Number [facility] [place] [address] * Lipid Panel (Reflex Direct LDL) (01/01/2023 8:48 AM EDT) Cholesterol, Total 118 mg/dL [facility] Comment: Lower Risk: <200 mg/dL Average Risk: 200-239 mg/dL Higher Risk: >ni=612 mg/dL Triglyceride 75 mg/dL [facility] Comment: Average Risk/Lower Risk: <150 mg/dL Borderline High Risk: 150-199 mg/dL High Risk: 200-499 mg/dL Very High Risk: >nk=607 mg/dL HDL Cholesterol 45 mg/dL [facility] Comment: Males: ?? Higher Risk: <40 mg/dL Females: ?? Higher Risk: <50 mg/dL LDL Cholesterol 58 mg/dL [facility] Comment: Lowest Risk: <100 mg/dL Lower Risk: 100-129 mg/dL Borderline High Risk: 130-159 mg/dL High Risk: 160-189 mg/dL Very High Risk: >wc=459 mg/dL Cholesterol/HDL Ratio 2.6 ratio [facility] Lipid Interpretation See Note [facility] Comment: Lipid management should be guided by a patient? s ASCVD risk, goals and preferences. ACC/AHA Guidelines recommend high intensity statin if clinical ASCVD or LDL greater than or equal to 190 mg/dL. http://AdFinance.com/CWD-JSH-Eofdxfxrr Adults aged 40-75 with LDL 70-189 mg/dL should have their 10 year ASCVD risk estimated with the ACC/AHA ASCVD risk solar sales estimator http://tools.acc.org/XLNBK-Nalk-Eritrnrpy/ Statin should be discussed if risk greater [...] MD CHEMISTRY ZACK NELSON Performing Organization Address [facility] Co de Phone Number [facility] [place] [address] * TSH (01/01/2023 8:48 AM EDT) Thyroid Stimulating Hormone 1.28 0.27 - 4.20 mcIU/mL [facility] Comment: Reference Interval (mcIU/mL): Females: ??First Trimester: 0.23-3.88 ??Second Trimester: 0.22-3.90 ??Third Trimester: 0.44-4.66 Blood 01/01/2023 8:48 AM EDT 01/01/2023 9:03 AM EDT Narrative Resulting Agency Comment Spec In Lab Candy Clifford MD CHEMISTRY ZACK NELSON Performing Organization Address City/[facility]/ZIP Co de Phone Number [facility] [place] [address] * Vitamin B12 (01/01/2023 8:48 AM EDT) Vitamin B12 553 232 - 1,245 pg/mL [facility] Blood 01/01/2023 8:48 AM EDT 01/01/2023 9:03 AM EDT Narrative Resulting Agency Comment Spec In Lab Candy Clifford MD CHEMISTRY ORDRicarda NELSON [facility] [place] [address] * Vitamin D, 25-Hydroxy (01/01/2023 8:48 AM EDT) Vitamin D Total 25 OH 43 21 - 100 ng/mL [facility] Vit D Interp Sufficient [facility] Blood 01/01/2023 8:48 AM EDT 01/01/2023 9:03 AM EDT Narrative Resulting Agency Comment Spec In Lab Candy Clifford MD CHEMISTRY ORDRicarda NELSON Performing Organization Address City/[facility]/ZIP Co de Phone Number [facility] [place] [address] documented in this encounter Visit Diagnoses Diagnosis Class 3 severe obesity with serious comorbidity and body mass index (BMI) of 60.0 to 69.9 in adult, unspecified obesity type Hyperlipidemia, unspecified hyperlipidemia type Prediabetes Other abnormal glucose Hepatic cirrhosis, unspecified hepatic cirrhosis type, unspecified whether ascites present documented in this encounter Care Teams Carpet Finishing Supervisor Relationship Specialty Start Date End Date Justino Lucia MD PCP - General Family Medicine 10/04/21 07/21/24 documented as of this encounter
--- OUTSIDE RECORDS SUMMARY | 2024-10-07 20:38 | XMS_ITS | Encounter Summary ---
Author Organization [facility] [place] [address] Care Team Providers Care Field Tax Auditor Name Role Phone Justino Lucia MD Primary Care Provider [phone] Encounter Details Date Type Department Care Team [...] 9:00 AM EDT Laboratory Appointment Lab [address] [place] [phone] 01/20/2025 9:30 AM EDT [place] [address] [facility] [place] [address] 01/20/2025 11:00 AM EDT Office [place] [phone] [facility] [place] [address] 01/20/2025 12:00 PM EDT Office [place] [address] [facility] DR NICHOLAS [place] [address] documented as of this encounter Goals Goal Patient Goal Type Associated Problems Recent Progress Patient-Stated? Author movement Exercise On track(2021 11:16 AM EDT) No Pankaj Mcadams Note: Try gentle movement like chair yoga, t'ai chi and qigong. Health Blunger Loader will send hand-outs. Use resistance bands. Health Blunger Loader will request a set be mailed. Movement Exercise On track(2021 11:16 AM EDT) No Pankaj Mcadams Note: Look around town, [employer] [facility], gyms, for a class to participate [...] and can't go back to sleep. Health Blunger Loader will send some to try. Tried apps but don't really like them as I like the quiet when going to sleep. [facility] 04/23 documented as of this encounter Visit Diagnoses Not on filedocumented in this encounter Care Teams Field Tax Auditor Relationship Specialty Start Date End Date Justino Lucia MD PCP - General Family Medicine 10/04/21 07/21/24 documented as of this encounter
--- OUTSIDE RECORDS SUMMARY | 2024-10-07 20:38 | XMS_ITS | Encounter Summary ---
Author Organization [facility] Address [facility] [place] [address] Care Team Providers Care Housekeeping/Laundry Supervisor Name Role Phone Justino Lucia MD Primary Care Provider Encounter Details Date Type Department Care Team (Latest Contact Info) Description 12/17/2022 2:00 PM EDT TH Visit (TeleHealth) [place] [phone] Kay Tao, PhD [facility] DR NICHOLAS [place] [address] Class 3 severe obesity with serious comorbidity [...] 01/20/2025 9:00 AM EDT Laboratory Appointment Lab [address] 01/20/2025 9:30 AM EDT Appointment Ultrasound at [address] Ana Ho MD [facility] [place] [address] 01/20/2025 11:00 AM EDT Office Visit Gastroenterology at [place] [phone] Ana Ho MD [facility] [place] [address] 01/20/2025 12:00 PM EDT Office Visit Weight Center at [place] [phone] Candy Clifford MD [facility] DR NICHOLAS PER[facility] [address] documented as of this encounter Goals Goal Patient Goal Type Associated Problems Recent Progress Patient-Stated? Author movement Exercise On track(2021 11:16 AM EDT) No Pankaj Mcadams Note: Try gentle movement like chair yoga, t'ai chi and qigong. Health Consumer Sales Representative will send hand-outs. Use resistance bands. Health Consumer Sales Representative will request a set be [...] for [facility] meal [facility] food [facility] until you are seen by the dieititian. Record everything you eat or drink, include time eaten and any emotional changes that are significant. relaxation/sleep Lifestyle No Pankaj Mcadams Note: Try some meditation/relaxation apps when I wake in the night and can't go back to sleep. Health Consumer Sales Representative will send some to try. Tried apps but don't really like them as I like the quiet when going to sleep. [facility] 04/23 documented as of this encounter Visit Diagnoses Diagnosis Class 3 severe obesity with serious comorbidity and body mass index (BMI) of 50.0 to 59.9 in adult, unspecified obesity type documented in this encounter Care Teams Housekeeping/Laundry Supervisor Relationship Specialty Start Date End Date Justino Lucia MD PCP - General Family Medicine 10/04/21 07/21/24 documented as of this encounter
--- OUTSIDE RECORDS SUMMARY | 2024-10-07 20:38 | XMS_ITS | Encounter Summary ---
Author Organization [facility] [place] [address] Care Team Providers Care Charge Aide Name Role Phone Justino Lucia MD Primary Care Provider [phone] Encounter Details Date Type Department Care Team [...] 9:00 AM EDT Laboratory Appointment Lab [address] [place] [phone] 01/20/2025 9:30 AM EDT Appointment [place] [address] Ana Ho MD [facility] [place] [address] 01/20/2025 11:00 AM EDT Office Visit [place] [phone] Ana Ho MD [facility] [place] [address] 01/20/2025 12:00 PM EDT Office Visit [place] [address] Candy Clifford MD [facility] DR NICHOLAS [facility] [address] documented as of this encounter Goals Goal Patient Goal Type Associated Problems Recent Progress Patient-Stated? Author movement Exercise On track(2021 11:16 AM EDT) No Pankaj Macdams Note: Try gentle movement like chair yoga, t'ai chi and qigong. Health Touch Up Painter will send hand-outs. Use resistance bands. Health Touch Up Painter will request a set be mailed. Movement Exercise On track(2021 11:16 AM EDT) No Pankaj Mcadams Note: Look around town, [employer] [facility], gyms, for a class to participate [...] for sample meal ideas in the [facility] Keep food log until you are seen by the dieititian. Record everything you eat or drink, include time eaten and any emotional changes that are significant. relaxation/sleep Lifestyle No Pankaj Mcadams Note: Try some meditation/relaxation apps when I wake in the night and can't go back to sleep. Health Touch Up Painter will send some to try. Tried apps but don't really like them as I like the quiet when going to sleep. [facility] 04/23 documented as of this encounter Visit Diagnoses Not on filedocumented in this encounter Care Teams Charge Aide Relationship Specialty Start Date End Date Justino Lucia MD PCP - General Family Medicine 10/04/21 07/21/24 documented as of this encounter
--- OUTSIDE RECORDS SUMMARY | 2024-10-07 20:38 | XMS_ITS | Encounter Summary ---
Author Organization [facility] Address [facility] [place] [address] Care Team Providers Care Nurse Ob Name Role Phone Justino Lucia MD Primary Care Provider [phone] Encounter Details Date Type Department Care Team (Late st Contact Info) Description 12/05/2022 9:00 AM EDT Office [place] [phone] Candy Clifford MD [facility] DR NICHOLAS [place] [address] Insulin resistance; Prediabetes; Hyperlipidemia, unspecified hyperlipidemia type; [...] 9:00 AM EDTSummary: 6th visit with MD [facility] Patient Name: [...] deficiency. GERD. OA. This is Visit #6 [facility] visit for this 72 y.o. patient. 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 Continue MD sharp/upneet. 01/18/2022 4:00 PM [facility] PATHWAY - ADULT Obesity Medicine Activate Goals ??? movement Try gentle movement like chair yoga, t'ai chi and qigong. Health Dye Can Operator will send hand-outs. Use resistance bands. Health Dye Can Operator will request a set be mailed. ??? Movement Look around town, senior center, gyms, for a class to participate in, bone builders or gentle stretching. ??? Nutrition Nutrition Goals: 03/16/22 TF Write down meal ideas (statred this today) - look for sample meal ideas in the USPS [facility] Keep food log until you are seen by the dieititian. Record everything you eat or drink, include time eaten and any emotional changes that are significant. ??? relaxation/sleep Try some meditation/relaxation apps when I wake in the night and can't go back to sleep. Health Dye Can Operator will send some to try. Tried apps but don't really like them as I like the quiet when going to sleep. [facility] 04/23 VITAL SIGNS: Vitals: 12/05/22 0905 BP: 119/55 BP Location ([facility]): Left arm Patient Position: Sitting BP Cuff [...] for: GLUCFASTING Lab Results Component Value Date [id number] 1,091 (H) 01/25/2022 25-OH Vit D Total [...] 01/30/2023) for In person or Zoom, With CONOR dooley. 1 min chart review 30 min [id number] Visit time 5 min Documentation time I [...] 01/20/2025 9:00 AM EDT Laboratory Appointment Lab [place] [address] 01/20/2025 9:30 AM EDT Appointment Ultrasound at [place] [phone] Ana Ho MD [facility] [place] [address] 01/20/2025 11:00 AM EDT Office [place] [address] Ana Ho MD [facility] [place] [address] 01/20/2025 12:00 PM EDT Office Visit Weight Center at [place] [phone] Candy Clifford MD [facility] DR NICHOLAS [place] [address] documented as of this encounter Goals Goal Patient Goal Type Associated Problems Recent Progress Patient-Stated? Author movement Exercise On track(2021 11:16 AM EDT) No Pankaj Mcadams Note: Try gentle movement like chair yoga, t'ai chi and qigong. Health Dye Can Operator will send hand-outs. Use resistance bands. Health Dye Can Operator will request a set be mailed. [...] opportunity to start with protein (cottage cheese, rwandan yogurt, protein smoothies, chicken or chicken salad [...] for sample meal ideas in the USPS [facility] Keep food log until you are seen by the dieititian. Record everything you eat or drink, include time eaten and any emotional changes that are significant. relaxation/sleep Lifestyle No Pankaj Mcadams Note: Try some meditation/relaxation apps when I wake in the night and can't go back to sleep. Health Dye Can Operator will send some to try. Tried [...] type documented in this encounter Care Teams Nurse Ob Relationship Specialty Start Date End Date Justino Lucia MD PCP - General Family Medicine 10/04/21 07/21/24 documented as of this encounter
--- OUTSIDE RECORDS SUMMARY | 2024-10-07 20:38 | XMS_ITS | Encounter Summary ---
Author Organization [facility] [place] [address] Care Team Providers Care Deck Molder Name Role Phone Justino Lucia MD Primary Care Provider [phone] Encounter Details Date Type Department Care Team (Latest Contact Info) Description 12/11/2022 8:30 AM EDT TH Visit (TeleHealth) [place] [address] [facility] [place] [address] Class 3 severe obesity with serious comorbidity [...] Patient Instructions * Patient Instructions* Lacey Martino I, CONOR - 12/11/2022 8:30 AM EDT Images from the original note were not included. Goals Addressed This Visit's Progress Nutrition Nutrition Goals updated today: 12/11/22 TF 1. Focus on reaching adequate protein intake - aim for 60-80 grams (handout attached in after visitsummary) 2. Consider the 3 eating events per day to be an opportunity to start with protein (cottage cheese,syriac yogurt, protein smoothies, chicken or chicken salad [...] bladder urgency. 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 Pt has daughter and [...] chair yoga, t'ai chi and qigong. Health Adjuster Leader will send hand-outs. Use resistance bands. Health Adjuster Leader will request a set be mailed. ??? Movement Look around town, senior center, gyms, for a class to participate in, bone builders or gentle stretching. ??? Nutrition Nutrition Goals: 03/16/22 TF Write down meal ideas (statred this today) - look for sample meal ideas in the USPS [facility] Keep food log until you are seen by the dieititian. Record everything you eat or drink, include time eaten and any emotional changes that are significant. ??? relaxation/sleep Try some meditation/relaxation apps when I wake in the night and can't go back to sleep. Health Adjuster Leader will send some to try. Tried apps but don't really like them as I like the quiet when going to sleep. [facility] 04/23 Other topics discussed: [x] Eating an [...] an opportunity to start with protein (cottage cheese,syriac yogurt, protein smoothies, chicken or chicken salad [...] 9:00 AM EDT Laboratory Appointment Lab [address] [place] [phone] 01/20/2025 9:30 AM EDT [place] [phone] Ana Ho MD [facility] [place] [address] 01/20/2025 11:00 AM EDT Office [place] [address] Ana Ho MD [facility] [place] [address] 01/20/2025 12:00 PM EDT Office [place] [address] Candy Clifford MD [facility] DR NICHOLAS PER[place] [address] documented as of this encounter Goals Goal Patient Goal Type Associated Problems Recent Progress Patient-Stated? Author movement Exercise On track(2021 11:16 AM EDT) No Pankaj Mcadams Note: Try gentle movement like chair yoga, t'ai chi and qigong. Health Adjuster Leader will send hand-outs. Use resistance bands. Health Adjuster Leader will request a set be mailed. Movement [...] and can't go back to sleep. Health Adjuster Leader will send some to try. Tried apps but don't really like them as I like the quiet when going to sleep. [facility] 04/23 documented as of this encounter Visit Diagnoses Diagnosis Class 3 severe obesity with serious comorbidity and body mass index (BMI) of 50.0 to 59.9 in adult, unspecified obesity type documented in this encounter Care Teams Deck Molder Relationship Specialty Start Date End Date Justino Lucia MD PCP - General Family Medicine 10/04/21 07/21/24 documented as of this encounter
--- OUTSIDE RECORDS SUMMARY | 2024-10-07 20:38 | XMS_ITS | Encounter Summary ---
Author Organization [facility] [place] [address] Care Team Providers Care Wine Bottle Inspector Name Role Phone Justino Lucia MD Primary Care Provider [phone] Reason for Referral * Diagnostic Test (Routine) - Closed Specialty Diagnoses / Procedures Referred By Contac t Referred To Contact Radiology Diagnoses Hepatic cirrhosis, unspecified hepatic cirrhosis type, unspecified whether ascites present Procedures CT Abdomen w Contrast Glenn Cardoso, [place] [address] [place] [address] [facility] [place] [address] Referral ID Status Reason Start Date Expiration Date V isits Requested Visits Authorized [id number] Closed Specialty Service Requested 01/01/2023 07/04/2024 1 1 Reason for Visit * Consultation (Routine) - Closed Specialty Diagnoses / Procedures Referred By Contac t Referred To Contact Gastroenterology Diagnoses Hepatic cirrhosis, unspecified hepatic cirrhosis type, unspecified whether ascites present Gastric varices Justino Lucia MD [address] [place] [address] [place] [address] [facility] [address] [place] [address] Referral ID Status Reason Start Date Expiration Date V isits Requested Visits Authorized [id number] Closed Consult, Test & Treat PCP Updated and/or Approved 11/22/2022 11/22/2023 12 12 Encounter Details Date Type Department Care Team (Late st Contact Info) Description 01/01/2023 10:00 AM EDT Office [place] [address] Glenn Cardoso PA [address] [place] [address] [place] [address] Hepatic cirrhosis, unspecified hepatic cirrhosis [...] CASAREZ/ROBER -Previously followed by Dr. 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 ?- Per [employer] Task Force ?of Colorectal Cancer (MSTF) ?recommendations, [...] on GLP-1 agonist. Plan: -Continue follow-up with [facility] on semaglutide. No med adjustments necessary. -Continue [...] Cardoso PA-C Section of Gastroenterology [place] [address] Cc: Justino Lucia MD @[email or web address]@ documented in this encounter Plan of Treatment Upcoming Encounters Date Type Department Care Team (Late st Contact Info) Description 01/20/2025 9:00 AM EDT Laboratory Appointment Lab [address] [address] 01/20/2025 9:30 AM EDT [place] [address] Ana Ho MD [facility] [place] [address] 01/20/2025 11:00 AM EDT Office Visit Gastroenterology at [place] [phone] Ana Ho MD [facility] [place] [address] 01/20/2025 12:00 PM EDT Office Visit Weight Center at [place] [phone] Candy Clifford MD [facility] DR NICHOLAS PERDOMO-[place] [address] documented as of this encounter Goals Goal Patient Goal Type Associated Problems Recent Progress Patient-Stated? Author movement Exercise On track(2021 11:16 AM EDT) No Pankaj Mcadams Note: Try gentle movement like chair yoga, t'ai chi and qigong. Health Ice Cream Vault Worker will send hand-outs. Use resistance bands. Health Ice Cream Vault Worker will request a set be mailed. [...] opportunity to start with protein (cottage cheese, argentine yogurt, protein smoothies, chicken or chicken salad [...] and can't go back to sleep. Health Ice Cream Vault Worker will send some to try. Tried apps but don't really like them as I like the quiet when going to sleep. [facility] 04/23 documented as of this encounter Results [...] who have questions please contact the health wild animal caretaker that requested your imaging first. ? Electronically signed by: Lashawn Hendrickson MD, [facility] ??([phone]), at 07/04/2023 3:08 PM Narrative 07/04/2023 3:08 [...] AM EDT) Alpha Fetoprotein 2.9 <=8.3 ng/mL [facility] Comment: This result was generated using a Anthony Viridiana immunoassay. ??Results obtained from other methods or manufacturers cannot be used interchangeably with this method. Blood 07/04/2023 7:39 AM EDT 07/04/2023 7:43 AM EDT Narrative Resulting Agency Comment Spec In Lab Rea Hickey MD CHEMISTRY ORDERABLES Performing Organization Address City/State/[facility] Co de Phone Number [facility] [place] [address] * (ABNORMAL) Prothrombin Time (07/04/2023 7:39 AM EDT) Prothrombin Time 13.2(H) 9.4 - 12.5 sec [facility] International Normalization Ratio 1.2 [facility] Comment: An INR <2.0 [...] Lab Rea Hickey MD HEMATOLOGY ORDERABLE S [facility] [place] [address] * Comprehensive metabolic panel (non-fasting) (07/04/2023 7:39 AM EDT) Glucose 92 65 - 199 mg/dL [facility] Comment:Diabetes: >=200 mg/d L plus symptoms Blood Urea Nitrogen 10 8 - 18 mg/dL [facility] Creatinine 0.77 0.70 - 1.20 mg/dL [facility] Sodium 142 135 - 145 mmol/L [facility] Potassium 3.8 3.5 - 5.0 mmol/L [facility] Comment: Please note: ??Patients with WBC >100,000 may have falsely elevated Potassium levels. ??For accurate Potassium quantification in these patients send serum separator tube (gold top) for subsequent determinations. ??Contact the Clinical Chemistry Laboratory if there are any questions. Chloride 103 98 - 107 mmol/L [facility] Carbon Dioxide 30 22 - 31 mmol/L [facility] Anion Gap 9 5 - 15 mmol/L [facility] Calcium 8.8 8.5 - 10.5 mg/dL [facility] Protein, Total 6.5 6.1 - 8.0 g/dL [facility] Albumin 3.4 3.2 - 5.2 g/dL [facility] Aspartate Aminotransferase 25 0 - 30 unit/L [facility] Alanine Aminotransferase 15 0 - 30 unit/L [facility] Alkaline Phosphatase 84 35 - 105 unit/L [facility] Bilirubin, Total 1.0 0.2 - 1.3 mg/dL [facility] Est Glomerular Filtration Rate 82 >=60 mL/min/1. 73 m?? [facility] Comment: This patient's estimated [...] In Lab Rea Hickey MD [place] [address] documented in this encounter Visit Diagnoses Diagnosis Hepatic cirrhosis, unspecified hepatic cirrhosis type, unspecified whether ascites present- Primary Portal hypertension Hepatic cirrhosis, unspecified hepatic cirrhosis type, unspecified whether ascites present documented in this encounter Care Teams Wine Bottle Inspector Relationship Specialty Start Date End Date Justino Lucia MD PCP - General Family Medicine 10/04/21 07/21/24 documented as of this encounter
--- OUTSIDE RECORDS SUMMARY | 2024-10-07 20:38 | XMS_ITS | Encounter Summary ---
Author Organization [facility] [place] [address] Care Team Providers Care Restaurant Busser Name Role Phone Justino Lucia MD Primary Care Provider [phone] Encounter Details Date Type Department Care Team [...] 9:00 AM EDT Laboratory Appointment Lab [address] [place] [phone] 01/20/2025 9:30 AM EDT Appointment [place] [address] Ana Ho MD [facility] [place] [address] 01/20/2025 11:00 AM EDT Office Visit [place] [phone] Ana Ho MD [facility] [place] [address] 01/20/2025 12:00 PM EDT Office [place] [address] Candy Clifford MD [facility] DR NICHOLAS PERDOM[place] [address] documented as of this encounter Goals Goal Patient Goal Type Associated Problems Recent Progress Patient-Stated? Author movement Exercise On track(2021 11:16 AM EDT) No Pankaj Mcadams Note: Try gentle movement like chair yoga, t'ai chi and qigong. Health Space Control Agent will send hand-outs. Use resistance bands. Health Space Control Agent will request a set be mailed. Movement Exercise On track(2021 11:16 AM EDT) No Pankaj Mcadams Note: Look around town, [facility], gyms, for a class to participate [...] for [facility] meal [facility] in the [facility] Keep food log until you are seen by the dieititian. Record everything you eat or drink, include time eaten and any emotional changes that are significant. relaxation/sleep Lifestyle No Pankaj Mcadams Note: Try some meditation/relaxation apps when I wake in the night and can't go back to sleep. Health Space Control Agent will send some to try. Tried apps but don't really like them as I like the quiet when going to sleep. [facility] 04/23 documented as of this encounter Visit Diagnoses Not on filedocumented in this encounter Care Teams Restaurant Busser Relationship Specialty Start Date End Date Justino Lucia MD PCP - General Family Medicine 10/04/21 07/21/24 documented as of this encounter
--- OUTSIDE RECORDS SUMMARY | 2024-10-07 20:38 | XMS_ITS | Encounter Summary ---
Author Organization [facility] [place] [address] Care Team Providers Care Fluoroscope Operator Name Role Phone Justino Lucia MD Primary Care Provider [phone] Encounter Details Date Type Department Care Team (Late Contact Info) Description 08/09/2022 12:00 PM EST Notes Only Weight and Wellness at [facility] [address] [place] [phone] Arrived Social History Tobacco Use Types Packs/Day [...] 9:00 AM EDT Laboratory Appointment Lab [address] [place] [address] 01/20/2025 9:30 AM EDT Appointment [place] [address] Ana Ho MD [facility] [place] [address] 01/20/2025 11:00 AM EDT Office Visit [place] [address] Ana Ho MD [facility] [place] [address] 01/20/2025 12:00 PM EDT Office Visit Weight Center at [facility] [place] [address] Candy Clifford MD [facility] [address] NICHOLAS [place] [address] documented as of this encounter Goals Goal Patient Goal Type Associated Problems Recent Progress Patient-Stated? Author movement Exercise On track(2021 11:16 AM EDT) No Pankaj Mcadams Note: Try gentle movement like chair yoga, t'ai chi and qigong. Health Car Head Liner Installer will send hand-outs. Use resistance bands. Health Car Head Liner Installer will request a set be mailed. [...] opportunity to start with protein (cottage cheese, khmer yogurt, protein smoothies, chicken or chicken salad [...] for [facility] meal [facility] in [facility] Keep food log until you are seen by the dieititian. Record everything you eat or drink, include time eaten and any emotional changes that are significant. relaxation/sleep Lifestyle No Pankaj Mcadams Note: Try some meditation/relaxation apps when I wake in the night and can't go back to sleep. Health Car Head Liner Installer will send some to try. Tried apps but don't really like them as I like the quiet when going to sleep. [facility] 04/23 documented as of this encounter Visit Diagnoses Not on filedocumented in this encounter Care Teams Fluoroscope Operator Relationship Specialty Start Date End Date Justino Lucia MD PCP - General Family Medicine 10/04/21 07/21/24 documented as of this encounter
--- OUTSIDE RECORDS SUMMARY | 2024-10-07 20:38 | XMS_ITS | Encounter Summary ---
Author Organization [facility] Address [facility] [place] [address] Care Team Providers Care Dry House Tender Name Role Phone Justino Lucia MD Primary Care Provider [phone] Encounter Details Date Type Department Care Team (Late st Contact Info) Description 09/25/2022 11:00 AM EST TH Visit (TeleHealth) [place] [address] Candy Clifford MD [facility] DR NICHOLAS PEDROMO-[place] [address] Class 3 severe obesity with serious comorbidity [...] 09/25/2022 11:00 AM ESTSummary: 5th visit with MD Patient provided verbal consent prior to initiation of this telemedicine encounter and expressed understanding that the telemedicine visit may be billed similar to a clinic visit, pt was seen while via [x] Video [] phone For this video visit, pt is located at: [facility] [place] [facility] Patient Name: Telma Richter Date of [...] deficiency. GERD. OA. This is Visit #5 [facility] visit for this 72 y.o. patient. Weight gain due to: Unclear - sits at home; notes gaining weight when she moved here from [place] to take care of her dad about 10 years ago. Multiple deaths in the family in the same time frame. Initial weight 01/18/22: 335 lbs (33.5 lbs, 10%) 03/01/2022, 335 lbs (no change) 04/20/2022, 328.5 lbs (-6.5 lbs) 06/25/2022, 315 lbs (-13.5 lbs, -20 lbs) 09/25/2022, 305 lbs (- 10 lbs, - 30 lbs) [facility] Team: Lacey Martino RD and Pankaj Mcadams, Health Batch And Furnace Operator HPI Life is ok, had some heart [...] Will do HLP-LS next. Continue MD follow-up. [facility] PATHWAY - ADULT 01/18/2022 Obesity Medicine Activate Goals ??? movement Try gentle movement like chair yoga, t'ai chi and qigong. Health Batch And Furnace Operator will send hand-outs. Use resistance bands. Health Batch And Furnace Operator will request a set be mailed. [...] and can't go back to sleep. Health Batch And Furnace Operator will send some to try. Tried apps but don't really like them as I like the quiet when going to sleep. [facility] 04/23 VITAL SIGNS: Vitals: 09/25/22 1121 Weight: [...] for: GLUCFASTING Lab Results Component Value Date [id number] 1,091 (H) 01/25/2022 25-OH Vit D Total [...] deficiency. GERD. OA. Referrals pending: Dietitian, Health Batch And Furnace Operator AOM: Ozempic 1 mg Diagnoses and all [...] dooley. 1 min chart review 30 min [id number] Visit time 5 min Documentation time I [...] 9:00 AM EDT Laboratory Appointment Lab [address] [place] [address] 01/20/2025 9:30 AM EDT Appointment [place] [address] Ana Ho MD [facility] [place] [address] 01/20/2025 11:00 AM EDT Office Visit [place] [phone] Ana Ho MD [facility] [place] [address] 01/20/2025 12:00 PM EDT Office Visit [place] [address] Candy Clifford MD [facility] DR NICHOLAS PERDOM[place] [address] documented as of this encounter Goals Goal Patient Goal Type Associated Problems Recent Progress Patient-Stated? Author movement Exercise On track(2021 11:16 AM EDT) No Pankaj Mcadams Note: Try gentle movement like chair yoga, t'ai chi and qigong. Health Batch And Furnace Operator will send hand-outs. Use resistance bands. Health Batch And Furnace Operator will request a set be mailed. [...] opportunity to start with protein (cottage cheese, afghan yogurt, protein smoothies, chicken or chicken salad [...] and can't go back to sleep. Health Batch And Furnace Operator will send some to try. Tried [...] type documented in this encounter Care Teams Dry House Tender Relationship Specialty Start Date End Date Justino Lucia MD PCP - General Family Medicine 10/04/21 07/21/24 documented as of this encounter
--- OUTSIDE RECORDS SUMMARY | 2024-10-07 20:38 | XMS_ITS | Encounter Summary ---
Author Organization [facility] Address [facility] [place] [address] Care Team Providers Care Recreation Aide Name Role Phone Justino Lucia MD Primary Care Provider [phone] Encounter Details Date Type Department Care Team (Latest Contact Info) Description 12/24/2022 2:00 PM EDT TH Visit (TeleHealth) [place] [phone] Kay Tao, PhD [facility] DR NICHOLAS [place] [address] Class 3 severe obesity with serious comorbidity [...] moving towards values using Choice Points and Fund Development Manager vs. Short Term Mind ?? Introduced concept of high risk situations that challenge weight management efforts ASSESSMENT: Pertinent Mental Status Exam: WNL Patient's verbal/interpersonal exchange with other participants: appropriate Telma reported that it is important for her to work on her health in honor of being around longer with her family. Telma's action plan for the coming week is: cook chief 1/wk PLAN: Follow-up appointment scheduled for return in 1 Weeks. Assigned Homework: Complete high risk situation worksheet, complete long-term/short-term mind worksheet, values-based action, and complete diary card documented in this encounter Plan of Treatment Upcoming Encounters Date Type Department Care Team (Late st Contact Info) Description 01/20/2025 9:00 AM EDT Laboratory Appointment Lab [address] [place] [phone] 01/20/2025 9:30 AM EDT Appointment Ultrasound at [place] [phone] Ana Ho MD [facility] [place] [address] 01/20/2025 11:00 AM EDT Office Visit Gastroenterology at [place] [phone] Ana Ho MD [facility] [place] [address] 01/20/2025 12:00 PM EDT Office Visit Weight Center at [place] [phone] Candy Clifford MD [facility] DR NICHOLAS [place] [address] documented as of this encounter Goals Goal Patient Goal Type Associated Problems Recent Progress Patient-Stated? Author movement Exercise On track(2021 11:16 AM EDT) No Pankaj Mcadams Note: Try gentle movement like chair yoga, t'ai chi and qigong. Health Sales Ledger Administrator will send hand-outs. Use resistance bands. Health Sales Ledger Administrator will request a set be mailed. Movement [...] for [facility] in the [facility] Keep food log until you are seen by the dieititian. Record everything you eat or drink, include time eaten and any emotional changes that are significant. relaxation/sleep Lifestyle No Pankaj Mcadams Note: Try some meditation/relaxation apps when I wake in the night and can't go back to sleep. Health Sales Ledger Administrator will send some to try. Tried apps but don't really like them as I like the quiet when going to sleep. [facility] 04/23 documented as of this encounter Visit Diagnoses Diagnosis Class 3 severe obesity with serious comorbidity and body mass index (BMI) of 50.0 to 59.9 in adult, unspecified obesity type documented in this encounter Care Teams Recreation Aide Relationship Specialty Start Date End Date Justino Lucia MD PCP - General Family Medicine 10/04/21 07/21/24 documented as of this encounter
--- OUTSIDE RECORDS SUMMARY | 2024-10-07 20:38 | XMS_ITS | Encounter Summary ---
Author Organization [facility] Address [address] [facility] [place] [address] Care Team Providers Care Gripper Attacher Name Role Phone Justino Lucia MD Primary Care Provider [phone] Encounter Details Date Type Department Care Team (Late st Contact Info) Description 06/22/2022 Telephone Weight and Wellness at [facility] [address] [place] [address] Claudia Marshall, COAT FINISHER Social History Tobacco Use Types Packs/Day Years [...] PM EDT [facility] Railway Patrol Officer Pre-telemedicine Visit Phone Note Telma Richter 1950 [] Patient was not reached Patient was reached and the following information was reviewed/obtained per protocol: [x] Confirmed patient name and date of [x] Confirmed ZOOM downloaded and functioning [] ZOOM appointment link sent if no MyDH [x] Phone number to be reached is: [phone] REVIEW: [x] Review of patient medications completed Have you started on any NEW medications? [] No [x] Yes:motoperole [x] Confirmed preferred pharmacy: [facility] Your provider might ask you what you ate the day prior to the visit Please weigh yourself before the appointment Pedi: Both parent and child need to be present for the visit documented in this encounter Plan of Treatment Upcoming Encounters Date Type Department Care Team (Late st Contact Info) Description 01/20/2025 9:00 AM EDT Laboratory Appointment Lab [address] [place] [phone] 01/20/2025 9:30 AM ED[place] [phone] Ana Ho MD [facility] [place] [address] 01/20/2025 11:00 AM EDT Office [place] [phone] Ana Ho MD [facility] [place] [address] 01/20/2025 12:00 PM EDT Office [place] [phone] Candy Clifford MD [facility] DR [facility] [place] [address] documented as of this encounter Goals Goal Patient Goal Type Associated Problems Recent Progress Patient-Stated? Author movement Exercise On track(2021 11:16 AM EDT) No Pankaj Mcadams Note: Try gentle movement like chair yoga, t'ai chi and qigong. Health Sample Stitcher will send hand-outs. Use resistance bands. Health Sample Stitcher will request a set be mailed. Movement [...] and can't go back to sleep. Health Sample Stitcher will send some to try. Tried apps but don't really like them as I like the quiet when going to sleep. [facility] 04/23 documented as of this encounter Visit Diagnoses Not on filedocumented in this encounter Care Teams Gripper Attacher Relationship Specialty Start Date End Date Justino Lucia MD PCP - General Family Medicine 10/04/21 07/21/24 documented as of this encounter
--- OUTSIDE RECORDS SUMMARY | 2024-10-07 20:38 | XMS_ITS | Encounter Summary ---
Author Organization [facility] [place] [address] Care Team Providers Care Cottrell Blower Name Role Phone Justino Lucia MD Primary Care Provider [phone] Encounter Details Date Type Department Care Team (Late Contact Info) Description 08/02/2022 12:00 PM EST Notes Only Weight and Wellness at [facility] [address] [place] [phone] Arrived Social History Tobacco Use Types Packs/Day [...] 9:00 AM EDT Laboratory Appointment Lab [address] [place] [address] 01/20/2025 9:30 AM EDT [place] [address] Ana Ho MD [facility] [place] [address] 01/20/2025 11:00 AM EDT Office [place] [address] Ana Ho MD [facility] [place] [address] 01/20/2025 12:00 PM EDT Office Visit Weight Center at [facility] [place] [address] Candy Clifford MD [facility] DR NICHOL[facility] [place] [address] documented as of this encounter Goals Goal Patient Goal Type Associated Problems Recent Progress Patient-Stated? Author movement Exercise On track(2021 11:16 AM EDT) No Pankaj Mcadams Note: Try gentle movement like chair yoga, t'ai chi and qigong. Health Milling General Superintendent will send hand-outs. Use resistance bands. Health Milling General Superintendent will request a set be mailed. [...] and can't go back to sleep. Health Milling General Superintendent will send some to try. Tried apps but don't really like them as I like the quiet when going to sleep. [facility] 04/23 documented as of this encounter Visit Diagnoses Not on filedocumented in this encounter Care Teams Cottrell Blower Relationship Specialty Start Date End Date Justino Lucia MD PCP - General Family Medicine 10/04/21 07/21/24 documented as of this encounter
--- OUTSIDE RECORDS SUMMARY | 2024-10-07 20:38 | XMS_ITS | Encounter Summary ---
Author Organization [facility] Address [facility] [place] [address] Care Team Providers Care Territory Account Executive Name Role Phone Justino Lucia MD Primary Care Provider [phone] Encounter Details Date Type Department Care Team (Late st Contact Info) Description 06/25/2022 10:00 AM EDT TH Visit (TeleHealth) Weight and Wellness at [facility] [address] [place] [address] Candy Clifford MD [facility] DR NICHOL[facility] PERDOM[place] [address] Hyperlipidemia, unspecified hyperlipidemia type; Prediabetes; Hypertension, unspecified [...] this video visit, pt is located at: [facility] Patient Name: [...] deficiency. GERD. OA. This is Visit #4 [facility] visit for this 72 y.o. patient. Weight gain due to: Unclear - sits at home; notes gaining weight when she moved here from [place] to take care of her dad about 10 years ago. Multiple deaths in the family in the same time frame. Initial weight 01/18/22: 335 lbs (33.5 lbs, 10%) 03/01/2022, 335 lbs (no change) 04/20/2022, 328.5 lbs (-6.5 lbs) 06/25/2022, 315 lbs (-13.5 lbs, -20 lbs) [facility] Team: Lacey Martino RD and Pankaj Mcadams, Health Call Center Coordinator HPI Still going to PT, Doing much better, walking a lot better, walking without cane but brings with her. Trying to check into [facility] - works with [facility]/rehab. Will look into [employer] Script type program and benefits through Medicare. I still have a lot of weight to lose. Got into a plateau. Really enjoying HLP - [facility] - learned a lot about reading labels a tremendous help. Life is good, but notes some intermittent depression. Speaking with Pankaj, wants to try [facility] but is nervous to go alone - [...] - happy to write referral, script etc. [facility]WAY - ADULT 01/18/2022 Obesity Medicine Activate Goals ??? movement Try gentle movement like chair yoga, t'ai chi and qigong. Health Call Center Coordinator will send hand-outs. Use resistance bands. Health Call Center Coordinator will request a set be mailed. ??? Movement Look around town, senior center, gyms, for a class to participate in, bone builders or gentle stretching. ??? Nutrition Nutrition Goals: 03/16/22 TF Write down meal ideas (statred this today) - look for sample meal ideas in the [facility] Keep food log until you are seen by the dieititian. Record everything you eat or drink, include time eaten and any emotional changes that are significant. ??? relaxation/sleep Try some meditation/relaxation apps when I wake in the night and can't go back to sleep. Health Call Center Coordinator will send some to try. Tried apps but don't really like them as I like the quiet when going to sleep. [facility] 04/23 VITAL SIGNS: Vitals: 06/25/22 1010 Weight: [...] for: [place]UC[facility]ING Lab Results Component Value Date [id number] 1,091 (H) 01/25/2022 25-OH Vit D Total [...] deficiency. GERD. OA. Referrals pending: Dietitian, Health Call Center Coordinator AOM: Ozempic 1 mg Diagnoses and all [...] me. 3 min chart review 20 min [id number] Visit time 5 min Documentation time I [...] 9:00 AM EDT Laboratory Appointment Lab [address] [place] [address] 01/20/2025 9:30 AM EDT Appointment Ultrasound at [place] [phone] Ana Ho MD [facility] [place] [address] 01/20/2025 11:00 AM EDT Office Visit Gastroenterology at [place] [phone] Ana Ho MD [facility] [place] [address] 01/20/2025 12:00 PM EDT Office Visit Weight Center at [place] [phone] Candy Clifford MD [facility] DR [facility] PERDOM[place] [address] documented as of this encounter Goals Goal Patient Goal Type Associated Problems Recent Progress Patient-Stated? Author movement Exercise On track(2021 11:16 AM EDT) No Pankaj Mcadams Note: Try gentle movement like chair yoga, t'ai chi and qigong. Health Call Center Coordinator will send hand-outs. Use resistance bands. Health Call Center Coordinator will request a set be mailed. [...] and can't go back to sleep. Health Call Center Coordinator will send some to try. Tried [...] type documented in this encounter Care Teams Territory Account Executive Relationship Specialty Start Date End Date Justino Lucia MD PCP - General Family Medicine 10/04/21 07/21/24 documented as of this encounter
--- OUTSIDE RECORDS SUMMARY | 2024-10-07 20:38 | XMS_ITS | Encounter Summary ---
Author Organization [facility] [place] [address] Care Team Providers Care Automobile Lights Assembler Name Role Phone Justino Lucia MD Primary Care Provider [phone] Encounter Details Date Type Department Care Team (Late st Contact Info) Description 06/06/2022 12:00 PM EDT Notes Only Weight and Wellness at [facility] [address] [place] [phone] Social History Tobacco Use Types Packs/Day Years [...] 9:00 AM EDT Laboratory Appointment Lab [address] [place] [address] 01/20/2025 9:30 AM EDT [place] [address] Ana Ho MD [facility] [place] [address] 01/20/2025 11:00 AM EDT Office [place] [address] Ana Ho MD [facility] [place] [address] 01/20/2025 12:00 PM EDT Office Visit Weight Center at [facility] [place] [address] Candy Clifford MD [facility] DR [facility] [place] [address] documented as of this encounter Goals Goal Patient Goal Type Associated Problems Recent Progress Patient-Stated? Author movement Exercise On track(2021 11:16 AM EDT) No Pankaj Mcadams Note: Try gentle movement like chair yoga, t'ai chi and qigong. Health Surveying Or Spatial Science Technician will send hand-outs. Use resistance bands. Health Surveying Or Spatial Science Technician will request a set be [...] opportunity to start with protein (cottage cheese, persian yogurt, protein smoothies, chicken or chicken salad [...] and can't go back to sleep. Health Surveying Or Spatial Science Technician will send some to try. Tried apps but don't really like them as I like the quiet when going to sleep. [facility] 04/23 documented as of this encounter Visit Diagnoses Not on filedocumented in this encounter Care Teams Automobile Lights Assembler Relationship Specialty Start Date End Date Justino Lucia MD PCP - General Family Medicine 10/04/21 07/21/24 documented as of this encounter
--- OUTSIDE RECORDS SUMMARY | 2024-10-07 20:38 | XMS_ITS | Encounter Summary ---
Author Organization [facility] [place] [address] Care Team Providers Care Guard Immigration Name Role Phone Justino Lucia MD Primary Care Provider [phone] Encounter Details Date Type Department Care Team (Late st Contact Info) Description 05/16/2022 12:00 PM EDT Notes Only Weight and Wellness at [facility] [address] [place] [phone] Arrived Social History Tobacco Use Types Packs/Day [...] 9:00 AM EDT Laboratory Appointment Lab [address] [place] [address] 01/20/2025 9:30 AM EDT [place]oint[place] [address] Ana Ho MD [facility] [place] [address] 01/20/2025 11:00 AM EDT Office [place] [address] Ana Ho MD [facility] [place] [address] 01/20/2025 12:00 PM EDT Office Visit Weight Center at [facility] [place] [address] Candy Clifford MD [facility] DR [facility] [place] [address] documented as of this encounter Goals Goal Patient Goal Type Associated Problems Recent Progress Patient-Stated? Author movement Exercise On track(2021 11:16 AM EDT) No Pankaj Mcadams Note: Try gentle movement like chair yoga, t'ai chi and qigong. Health Occupational Therapist Per Diem will send hand-outs. Use resistance bands. Health Occupational Therapist Per Diem will request a set be mailed. Movement Exercise On track(2021 11:16 AM EDT) No Pankaj Mcaadms Note: Look around town, senior center, gyms, [...] for sample meal ideas in the [facility] Keep food log until you are seen by the dieititian. Record everything you eat or drink, include time eaten and any emotional changes that are significant. relaxation/sleep Lifestyle No Pankaj Mcadams Note: Try some meditation/relaxation apps when I wake in the night and can't go back to sleep. Health Occupational Therapist Per Diem will send some to try. Tried apps but don't really like them as I like the quiet when going to sleep. [facility] 04/23 documented as of this encounter Visit Diagnoses Not on filedocumented in this encounter Care Teams Guard Immigration Relationship Specialty Start Date End Date Justino Lucia MD PCP - General Family Medicine 10/04/21 07/21/24 documented as of this encounter
--- OUTSIDE RECORDS SUMMARY | 2024-10-07 20:38 | XMS_ITS | Encounter Summary ---
Author Organization [facility] [place] [address] Care Team Providers Care Door Frame Builder Name Role Phone Justino Lucia MD Primary Care Provider [phone] Encounter Details Date Type Department Care Team (Late st Contact Info) Description 07/05/2022 12:00 PM EDT Notes Only Weight and Wellness at [facility] [address] [place] [phone] Social History Tobacco Use Types Packs/Day Years [...] 9:00 AM EDT Laboratory Appointment Lab [address] [place] [address] 01/20/2025 9:30 AM EDT [place] [address] Ana Ho MD [facility] [place] [address] 01/20/2025 11:00 AM EDT Office [place] [address] Ana Ho MD [facility] [place]STR[place] [address] 01/20/2025 12:00 PM EDT Office Visit Weight Center [place] [address] Candy Clifford MD [facility] DR [facility] [address] documented as of this encounter Goals Goal Patient Goal Type Associated Problems Recent Progress Patient-Stated? Author movement Exercise On track(2021 11:16 AM EDT) No Pankaj Mcadams Note: Try gentle movement like chair yoga, t'ai chi and qigong. Health Sifter And Miller will send hand-outs. Use resistance bands. Health Sifter And Miller will request a set be mailed. Movement [...] sample meal ideas in the [facility] Keep food log until you are seen by the dieititian. Record everything you eat or drink, include time eaten and any emotional changes that are significant. relaxation/sleep Lifestyle No Pankaj Mcadams Note: Try some meditation/relaxation apps when I wake in the night and can't go back to sleep. Health Sifter And Miller will send some to try. Tried apps but don't really like them as I like the quiet when going to sleep. [facility] 04/23 documented as of this encounter Visit Diagnoses Not on filedocumented in this encounter Care Teams Door Frame Builder Relationship Specialty Start Date End Date Justino Lucia MD PCP - General Family Medicine 10/04/21 07/21/24 documented as of this encounter
--- OUTSIDE RECORDS SUMMARY | 2024-10-07 20:38 | XMS_ITS | Encounter Summary ---
Author Organization [facility] Address [facility] [place] [address] Care Team Providers Care Advanced Developer Name Role Phone Justino Lucia MD Primary Care Provider [phone] Encounter Details Date Type Department Care Team (Latest Contact Info) Description 06/21/2022 11:00 AM EDT TH Visit (TeleHealth) Weight and Wellness at [facility] [address] [place] [phone] Pankaj Mcadams Class 3 severe obesity due [...] this goes! Be well, Pankaj Mcadams Health Recreation Manager documented in this encounter Progress Notes * Pankaj Mcadams - 06/21/2022 11:00 AM EDT Telma Richter is here today at the request of Dr. Clifford for lifestyle coaching for weight control and overall health. Review specific goals if any from provider Goals ??? movement Try gentle movement like chair yoga, t'ai chi and qigong. Health Recreation Manager will send hand-outs. Use resistance bands. Health Recreation Manager will request a set be mailed. ??? Movement Look around town, senior center, gyms, for a class to participate in, bone builders or gentle stretching. ??? Nutrition Nutrition Goals: 03/16/22 TF Write down meal ideas (statred this today) - look for sample meal ideas in the USPS [facility] Keep food log until you are seen by the dieititian. Record everything you eat or drink, include time eaten and any emotional changes that are significant. ??? relaxation/sleep Try some meditation/relaxation apps when I wake in the night and can't go back to sleep. Health Recreation Manager will send some to try. Tried apps but don't really like them as I like the quiet when going to sleep. [facility] 04/23 Exercise Still doing PT, looking into [...] [x]Gratitude journal []Other: Future follow-up with health retail performance coach will address identified areas of concern: [...] increasing mindfulness throughout the day. Your health retail performance coach is well-equipped to guide you to find something to look forward to everyday. Eating behaviors: many people benefit from restricting the hours in which they eat. You can choose an eating window of 8-12 hours to start. Make a pact with yourself that you will not take in anything with caloric content outside this window. Your supervisor travel trailer may make further recommendations documented in this encounter Plan of Treatment Upcoming Encounters Date Type Department Care Team (Late st Contact Info) Description 01/20/2025 9:00 AM EDT Laboratory Appointment Lab [address] [place] [phone] 01/20/2025 9:30 AM EDT [place] [address] Ana Ho MD [facility] [place] [address] 01/20/2025 11:00 AM EDT Office [place] [phone] Ana Ho MD [facility] [place] [address] 01/20/2025 12:00 PM EDT Office [place] [address] Candy Clifford MD [facility] DR [facility] PERDOM[place] [address] documented as of this encounter Goals Goal Patient Goal Type Associated Problems Recent Progress Patient-Stated? Author movement Exercise On track(2021 11:16 AM EDT) No Pankaj Mcadams Note: Try gentle movement like chair yoga, t'ai chi and qigong. Health Recreation Manager will send hand-outs. Use resistance bands. Health Recreation Manager will request a set be mailed. [...] meal ideas in the [facility] Keep food log until you are seen by the dieititian. Record everything you eat or drink, include time eaten and any emotional changes that are significant. relaxation/sleep Lifestyle No Pankaj Mcadams Note: Try some meditation/relaxation apps when I wake in the night and can't go back to sleep. Health Recreation Manager will send some to try. Tried apps but don't really like them as I like the quiet when going to sleep. [facility] 04/23 documented as of this encounter Visit Diagnoses Diagnosis Class 3 severe obesity due to excess calories with serious comorbidity and body mass index (BMI) of 60.0 to 69.9 in adult documented in this encounter Care Teams Advanced Developer Relationship Specialty Start Date End Date Justino Lucia MD PCP - General Family Medicine 10/04/21 07/21/24 documented as of this encounter
--- OUTSIDE RECORDS SUMMARY | 2024-10-07 20:38 | XMS_ITS | Encounter Summary ---
Author Organization [facility] [place] [address] Care Team Providers Care Land Surveying Survey Worker Name Role Phone Justino Lucia MD Primary Care Provider [phone] Reason for Visit * Auth/Cert Specialty Diagnoses / Procedures Referred By Contac t Referred To Contact Diagnoses 1) cirrhosis with h/o gastric varices in 2018 (Dr. Ramon), overdue for screening EGD; 2) due for colonoscopy with h/o polyps in 2017 Procedures PRO UPPER GI ENDOSCOPY, DIAGNOSTIC PRO COLONOSCOPY, DIAGNOSTIC EGD, UPPER GI ENDOSCOPY COLONOSCOPY, DIAGNOSTIC Leo Rojas MD [facility] Referral ID Status Reason Start Date Expiration Date Visits Re quested Visits Authorized [id number] 1 1 Encounter Details Date Type Department Care Team (Late st Contact Info) Description 06/05/2022 10:40 AM EDT Anesthesia Event [place] [address] Markos Velazquez MD [facility] [place] [address] Anesthesia Record Procedure Summary Procedure Name Responsible [...] 1019; metacarpal vein (top of hand), right; hxht-qrn-icdgki catheter system; 22 gauge; no longer indicated, [...] Procedure Summary Date: 06/05/22 Room / Location: [facility] ENDO 5 / [facility] ENDOSCOPY Anesthesia Start: 1040 Anesthesia Stop: 1122 [...] All Anesthesia Providers: Anesthesiologist: Markos Velazquez MD NURSING ASSOCIATE: Dung Hester CRNA Vitals Value Taken Time BP 102/70 06/05/22 1220 Temp Pulse Resp 18 06/05/22 1220 SpO2 94 % 06/05/22 1221 Pain Level 3 06/05/22 1220 Vitals shown include unvalidated device data. Patient Location: PACU/[facility] Level of Consciousness: Conscious but Sleepy [...] Drug Use Yes ??? Types: Marijuana Comment: QHS to help [...] consented to blood products. Plan discussed with NURSING ASSOCIATE. Anesthesia Screening documented in this encounter Plan of Treatment Upcoming Encounters Date Type Department Care Team (Late st Contact Info) Description 01/20/2025 9:00 AM EDT Laboratory Appointment Lab [address] [place] [phone] 01/20/2025 9:30 AM EDT Appointment [place] [address] Ana Ho MD [facility] [place] [address] 01/20/2025 11:00 AM EDT Office Visit [place] [address] Ana Ho MD [facility] [place] [address] 01/20/2025 12:00 PM EDT Office Visit [place] [address] Candy Clifford MD [facility] DR [facility] [address] documented as of this encounter Goals Goal Patient Goal Type Associated Problems Recent Progress Patient-Stated? Author movement Exercise On track(2021 11:16 AM EDT) No Pankaj Mcadams Note: Try gentle movement like chair yoga, t'ai chi and qigong. Health Visiting Professor will send hand-outs. Use resistance bands. Health Visiting Professor will request a set be mailed. Movement [...] and can't go back to sleep. Health Visiting Professor will send some to try. Tried apps but don't really like them as I like the quiet when going to sleep. [facility] 04/23 documented as of this encounter Visit Diagnoses Not on filedocumented in this encounter Administered Medications Inactive Administered Medications - up to 3 most recent administrations Medication Order MAR Action Action Date Dose Rate Site dexmedeTOMIDine (Precedex) (4 mcg/mL) bolus injection (Anesthsia) Intravenous, PRN, Starting on e 06/05/22 at 1043, Until 06/05/22 at 1122, Anesthesia Intra-op, Routine Given 06/05/2022 [...] multi-dose injection Syrg Intravenous, PRN, Starting on 06/05/22 at 1055, Until 06/05/22 at 1122, Anesthesia Intra-op, Routine Given 06/05/2022 11:03 AM EDT 160 mcg Given 06/05/2022 10:55 AM EDT 80 mcg propofoL (Diprivan) (10 mg/mL) infusion Intravenous, CONTINUOUS PRN, Starting on e 06/05/22 at 1043, Until 06/05/22 at 1122, Anesthesia Intra-op, Routine Rate/Dose Change 06/05/2022 11:07 AM EDT 100 mcg/kg/min 87.12 mL/hr Rate/Dose Change 06/05/2022 11:03 AM EDT 125 mcg/kg/min 10 8.9 mL/hr New Bag 06/05/2022 10:43 AM EDT 150 mcg/kg/min 130.68 m L/hr propofoL (Diprivan) 10 mg/mL bolus injection (Anesthesia) Intravenous, PRN, Starting on e 06/05/22 at 1043, Until 06/05/22 at 1122, Anesthesia Intra-op Given 06/05/2022 10:43 AM EDT 60 mg documented in this encounter Care Teams Land Surveying Survey Worker Relationship Specialty Start Date End Date Justino Lucia MD PCP - General Family Medicine 10/04/21 07/21/24 documented as of this encounter
--- OUTSIDE RECORDS SUMMARY | 2024-10-07 20:38 | XMS_ITS | Encounter Summary ---
Author Organization [facility] [place] [address] Care Team Providers Care Keyseating Machine Set Up Operator Name Role Phone Justino Lucia MD Primary Care Provider [phone] Encounter Details Date Type Department Care Team [...] 9:00 AM EDT Laboratory Appointment Lab [address] [place] [phone] 01/20/2025 9:30 AM [place] [address] Ana Ho MD [facility] [place] [address] 01/20/2025 11:00 AM EDT [place] [phone] Ana Ho MD [facility] [place] [address] 01/20/2025 12:00 PM EDT [place] [address] Candy Clifford MD [facility] DR N[facility]OL[facility] [place] [address] documented as of this encounter Goals Goal Patient Goal Type Associated Problems Recent Progress Patient-Stated? Author movement Exercise On track(2021 11:16 AM EDT) No Pankaj Mcadams Note: Try gentle movement like chair yoga, t'ai chi and qigong. Health Bronc Breaker will send hand-outs. Use resistance bands. Health Bronc Breaker will request a set be mailed. Movement Exercise On track(2021 11:16 AM EDT) No Pankaj Mcadams Note: Look around town, [facility], gyms, for a class to participate [...] and can't go back to sleep. Health Bronc Breaker will send some to try. Tried apps but don't really like them as I like the quiet when going to sleep. [facility] 04/23 documented as of this encounter Visit Diagnoses Not on filedocumented in this encounter Care Teams Keyseating Machine Set Up Operator Relationship Specialty Start Date End Date Justino Lucia MD PCP - General Family Medicine 10/04/21 07/21/24 documented as of this encounter
--- OUTSIDE RECORDS SUMMARY | 2024-10-07 20:38 | XMS_ITS | Encounter Summary ---
Author Organization [facility] [place] [address] Care Team Providers Care Bilingual Research Interviewer Name Role Phone Justino Lucia MD Primary Care Provider [phone] Reason for Visit * Reason Onset Date Comments Medication Refill 09/25/2022 Encounter Details Date Type Department Care Team (Late st Contact Info) Description 09/25/2022 [place] [phone] Claudia Marshall, [facility] Social History Tobacco Use Types Packs/Day Years [...] 9:00 AM EDT Laboratory Appointment Lab [address] [place] [phone] 01/20/2025 9:30 AM EDT [place] [phone] Ana Ho MD [facility] [place] [address] 01/20/2025 11:00 AM EDT Office [place] [phone] Ana Ho MD [facility] [place] [address] 01/20/2025 12:00 PM EDT Office [place] [address] Candy Clifford MD [facility] DR [facility] [place] [address] documented as of this encounter Goals Goal Patient Goal Type Associated Problems Recent Progress Patient-Stated? Author movement Exercise On track(2021 11:16 AM EDT) No Pankaj Mcadams Note: Try gentle movement like chair yoga, t'ai chi and qigong. Health Supervisor Paper Coating will send hand-outs. Use resistance bands. Health Supervisor Paper Coating will request a set be mailed. Movement [...] opportunity to start with protein (cottage cheese, kiswahili yogurt, protein smoothies, chicken or chicken salad [...] can't go back to sleep. Health Supervisor Paper Coating will send some to try. Tried apps but don't really like them as I like the quiet when going to sleep. [facility] 04/23 documented as of this encounter Visit Diagnoses Not on filedocumented in this encounter Care Teams Bilingual Research Interviewer Relationship Specialty Start Date End Date Justino Lucia MD PCP - General Family Medicine 10/04/21 07/21/24 documented as of this encounter
--- OUTSIDE RECORDS SUMMARY | 2024-10-07 20:38 | XMS_ITS | Encounter Summary ---
Author Organization [facility] [place] [address] Care Team Providers Care Patient Access Manager Name Role Phone Justino Lucia MD Primary Care Provider [phone] Encounter Details Date Type Department Care Team (Late st Contact Info) Description 11/19/2022 5:30 PM EDT Notes [place] [address] Social History Tobacco Use Types [...] 9:00 AM EDT Laboratory Appointment Lab [address] [place] [address] 01/20/2025 9:30 AM EDT [place] [address] Ana Ho MD [facility] [place] [address] 01/20/2025 11:00 AM EDT Office [place] [address] Ana Ho MD [facility] [place] [address] 01/20/2025 12:00 PM EDT Office Visit Weight Center at [facility] [place] [phone] Candy Clifford MD [facility] DR [facility] [place] [address] documented as of this encounter Goals Goal Patient Goal Type Associated Problems Recent Progress Patient-Stated? Author movement Exercise On track(2021 11:16 AM EDT) No Pankaj Mcadams Note: Try gentle movement like chair yoga, t'ai chi and qigong. Health Microsoft Net Developer will send hand-outs. Use resistance bands. Health Microsoft Net Developer will request a set be mailed. Movement [...] opportunity to start with protein (cottage cheese, swiss yogurt, protein smoothies, chicken or chicken salad [...] and can't go back to sleep. Health Microsoft Net Developer will send some to try. Tried apps but don't really like them as I like the quiet when going to sleep. [facility] 04/23 documented as of this encounter Visit Diagnoses Not on filedocumented in this encounter Care Teams Patient Access Manager Relationship Specialty Start Date End Date Justino Lucia MD PCP - General Family Medicine 10/04/21 07/21/24 documented as of this encounter
--- OUTSIDE RECORDS SUMMARY | 2024-10-07 20:38 | XMS_ITS | Encounter Summary ---
Author Organization [facility] [place] [address] Care Team Providers Care Decorating Supervisor Name Role Phone Justino Lucia MD Primary Care Provider [phone] Reason for Visit * Auth/Cert Specialty Diagnoses / Procedures Referred By Contac t Referred To Contact Diagnoses 1) cirrhosis with h/o gastric varices in 2018 (Dr. Ramon), overdue for screening EGD; 2) due for colonoscopy with h/o polyps in 2017 Procedures PRO UPPER GI ENDOSCOPY, DIAGNOSTIC PRO COLONOSCOPY, DIAGNOSTIC EGD, UPPER GI ENDOSCOPY COLONOSCOPY, DIAGNOSTIC Leo Rojas MD [facility] Referral ID Status Reason Start Date Expiration Date Visits Re quested Visits Authorized [id number] 1 1 Encounter Details Date Type Department Care Team (Late st Contact Info) Description 06/05/2022 11:00 AM EDT - 06/05/2022 12:00 PM EDT Surgery [place] [address] Leo Rojas MD EGD, UPPER GI ENDOSCOPY (WRVU 2.09) Social [...] the day after the procedure, use an bvhs-ewz-sbstrhr spray to numb your throat. Sucking on [...] occurs, please contact your Doctor. Please call [phone] before 8pm Mon-Fri with problems, questions or concerns. If you call after 8pm or on weekends, call the Hospital at [phone] and ask to speak to the Wash And Greaser substation designer and the coding machine operator will contact that person for you. When should you call for help? Call [phone] anytime you think you may need emergency [...] learn more? [facility] View your After Visit Summary and more online at [email or web address] If you would like to provide [...] cost to you. Content Version: 12.2 ?? [id number] [employer]. Care instructions adapted under license by [facility]. If you have questions about a medical condition or this instruction, always ask your healthcare professional. [employer] disclaims any warranty or liability for your [...] occurs, please contact your Doctor. Please call [phone] before 8pm Mon-Fri with problems, questions or concerns. If you call after 8pm or on weekends, call the Hospital at [phone] and ask to speak to the Wash And Greaser substation designer and the coding machine operator will contact that person for [...] learn more? [facility] View your After Visit Summary and more online at [email or web address] If you would like to provide [...] cost to you. Content Version: 12.2 ?? [id number] [employer]. Care instructions adapted under license by [facility]. If you have questions about a medical condition or this instruction, always ask your healthcare professional. [employer] disclaims any warranty or liability for your [...] 9:00 AM EDT Laboratory Appointment Lab [address] [place] [address] 01/20/2025 9:30 AM EDT Appointment [place] [address] Ana Ho MD [facility] [place] [address] 01/20/2025 11:00 AM EDT Office Visit [place] [address] Ana Ho MD [facility] [address] 01/20/2025 12:00 PM EDT Office [place] [address] Candy Clifford MD [facility] DR NICHOL[facility] [place] [address] documented as of this encounter Goals Goal Patient Goal Type Associated Problems Recent Progress Patient-Stated? Author movement Exercise On track(2021 11:16 AM EDT) No Pankaj Mcadams Note: Try gentle movement like chair yoga, t'ai chi and qigong. Health Tile And Marble Installer will send hand-outs. Use resistance bands. Health Tile And Marble Installer will request a set be mailed. [...] and can't go back to sleep. Health Tile And Marble Installer will send some to try. Tried apps but don't really like them as I like the quiet when going to sleep. [facility] 04/23 documented as of this encounter Procedures Procedure Name Priority Date/Time Associated Diagnosis Comments SPECIMEN TO PATHOLOGY Routine 06/05/2022 11:15 AM EDT SURGICAL PATHOLOGY REPORT Routine 06/05/2022 11:10 AM EDT UPPER GI ENDOSCOPY Routine 06/05/2022 10 :39 AM EDT COLONOSCOPY Routine 06/05/2022 10:38 AM EDT Colonoscopy, Lorenzo García, Snare ([id number]) 06/05/2022 10:37 AM EDT Hepatic cirrhosis, unspecified hepatic cirrhosis type, unspecified whether ascites present History of colon polyps Screening for colon cancer Upper GI Endoscopy, Diagnostic ([id number]) 06/05/2022 10:37 AM EDT Hepatic cirrhosis, unspecified hepatic cirrhosis type, unspecified whether ascites present History of colon polyps Screening for colon cancer documented in this encounter Results * Specimen to Pathology (06/05/2022 11:15 AM EDT) AP Specimen 06/05/2022 11:1 5 AM EDT 06/05/2022 11:15 AM EDT Narrative [facility] - 06/05/2022 11:15 AM EDT Specimen requisition ordered. ??Separate Pathology report to follow Leo Rojas MD PATHOLOGY/CYTOLOGY O RDERABLES [facility] [place] [address] * Surgical Pathology Report (06/05/2022 11:10 AM EDT) Final Diagnosis [id number] ? Location: 4T; EA08; A The signing pathologist has (i) examined the relevant preparation(s) for the specimen(s) and (ii) rendered or confirmed the diagnosis(es). . ?Surgical Pathology DIAGNOSIS A - Transverse colon ?? diminutive polyp, resection: - ??Fragments of tubular adenoma. Electronically signed by: ?Hina GRACE PhD, Era Verified: ??06/14/2022 9:47 ?? Pathologist Performed at: ??-[facility] [place], [place], [place] SPECIMEN(S) SUBMITTED A - Transverse colon ?? diminutive polyp, resection (1) CLINICAL INFORMATION 72-year-old female with history of polyps, surveillance colonoscopy SPECIMEN PROCESSING A - Labeled/Fixative : TC, formalin. Quantity/Size: Three, averaging 0.6 cm. Tissue Description: Soft, pink, polypoid tissues. Sections/Process ing: Submitted en toto ??in 1 cassette labeled A1. ??sns 06/14/2022 9:47 AM EDT [facility] GI Biopsy 06/05/2022 11:1 0 AM EDT 06/05/2022 11:10 AM EDT Leo Rojas MD PATHOLOGY/CYTOLOGY O RDERABLES Performing Organization Address City/State/[facility] Co de Phone Number [facility] [place] [address] * UPPER GI ENDOSCOPY (06/05/2022 10:39 AM EDT) UPPER GI ENDOSCOPY [facility] Endoscopy ___ Procedure Date: 06/05/2022 10:39 AM ? Patient Name: Telma Richter ? Date of : 1950 ? Age: 72 ? Order #: [id number] ? Instrument Name: [id number]- [id number] ? ___ Procedure: ? Upper GI endoscopy [...] * COLONOSCOPY (06/05/2022 10:38 AM EDT) COLONOSCOPY [facility] Endoscopy Procedure Date: 06/05/2022 10:38 AM ? Patient Name: Telma Richter ? Date of : 1950 ? Age: 72 ? Order #: [id number] ? Instrument Name: [id number]- [id number] ? Procedure: ? Colonoscopy Indications: ? High [...] preparation was evaluated ? using the BBPS ([place] Bowel ? Preparation Scale) with scores of: [...] CRNA) documented in this encounter Care Teams Decorating Supervisor Relationship Specialty Start Date End Date Justino Lucia MD PCP - General Family Medicine 10/04/21 07/21/24 documented as of this encounter
--- OUTSIDE RECORDS SUMMARY | 2024-10-07 20:38 | XMS_ITS | Encounter Summary ---
Author Organization [facility] [place] [address] Care Team Providers Care Levee Superintendent Name Role Phone Justino Lucia MD Primary Care Provider [phone] Encounter Details Date Type Department Care Team (Late st Contact Info) Description 07/12/2022 12:00 PM EST Notes Only Weight and Wellness at [facility] [address] [place] [phone] Social History Tobacco Use Types Packs/Day Years [...] 9:00 AM EDT Laboratory Appointment Lab [address] [place] [address] 01/20/2025 9:30 AM EDT Appointment [place] [address] Ana Ho MD [facility] [place] [place] [address] 01/20/2025 11:00 AM EDT Office Visit [place] [address] Ana Ho MD [facility] [place] [address] 01/20/2025 12:00 PM EDT Office Visit Weight Center at [facility] [place] [address] Candy Clifford MD [facility] DR [facility] [place] [address] documented as of this encounter Goals Goal Patient Goal Type Associated Problems Recent Progress Patient-Stated? Author movement Exercise On track(2021 11:16 AM EDT) No Pankaj Mcadams Note: Try gentle movement like chair yoga, t'ai chi and qigong. Health [employer] will send hand-outs. Use resistance bands. Health [employer] will request a set be mailed. Movement [...] and can't go back to sleep. Health [employer] will send some to try. Tried apps but don't really like them as I like the quiet when going to sleep. [facility] 04/23 documented as of this encounter Visit Diagnoses Not on filedocumented in this encounter Care Teams Levee Superintendent Relationship Specialty Start Date End Date Justino Lucia MD PCP - General Family Medicine 10/04/21 07/21/24 documented as of this encounter
--- OUTSIDE RECORDS SUMMARY | 2024-10-07 20:38 | XMS_ITS | Encounter Summary ---
Author Organization [facility] [place] [address] Care Team Providers Care Trimmer Loader Name Role Phone Justino Lucia MD Primary Care Provider [phone] Encounter Details Date Type Department Care Team (Late st Contact Info) Description 12/05/2022 Telephone [place] [address] Donna Almonte Social History Tobacco [...] 9:00 AM EDT Laboratory Appointment Lab [address] [place] [address] 01/20/2025 9:30 AM EDT [place] [address] Ana Ho MD [facility] [place] [address] 01/20/2025 11:00 AM EDT Office [place] [address] Ana Ho MD [facility] [place] [address] 01/20/2025 12:00 PM EDT Office Visit Weight Center at [facility] [place] [address] Candy Clifford MD [facility] DR NICHOL[facility] [place] [address] documented as of this encounter Goals Goal Patient Goal Type Associated Problems Recent Progress Patient-Stated? Author movement Exercise On track(2021 11:16 AM EDT) No Pankaj Mcadams Note: Try gentle movement like chair yoga, t'ai chi and qigong. Health Building Performance Consultant will send hand-outs. Use resistance bands. Health Building Performance Consultant will request a set be mailed. [...] for [facility] meal [facility] the [facility] Keep food log until you are seen by the dieititian. Record everything you eat or drink, include time eaten and any emotional changes that are significant. relaxation/sleep Lifestyle Pankaj Russ Note: Try some meditation/relaxation apps when I wake in the night and can't go back to sleep. Health Building Performance Consultant will send some to try. Tried apps but don't really like them as I like the quiet when going to sleep. [facility] 04/23 documented as of this encounter Visit Diagnoses Not on filedocumented in this encounter Care Teams Trimmer Loader Relationship Specialty Start Date End Date Justino Lucia MD PCP - General Family Medicine 10/04/21 07/21/24 documented as of this encounter
--- OUTSIDE RECORDS SUMMARY | 2024-10-07 20:38 | XMS_ITS | Encounter Summary ---
Author Organization [facility] Address [facility] [place] [address] Care Team Providers Care Bilingual Teacher Aide Name Role Phone Justino Lucia MD Primary Care Provider [phone] Encounter Details Date Type Department Care Team (Latest Contact Info) Description 01/01/2023 7:47 AM EDT - 01/01/2023 11:59 PM EDT Hospital En[place] [address] Rea Sierra MD [facility] [place] [address] Hepatic cirrhosis, unspecified hepatic cirrhosis type, unspecified [...] 9:00 AM EDT Laboratory Appointment Lab [address] [place] [phone] 01/20/2025 9:30 AM EDT Appointment [place] [phone] Ana Ho MD [facility] [place] [address] 01/20/2025 11:00 AM EDT Office Visit [place] [phone] Ana Ho MD [facility] [place] [address] 01/20/2025 12:00 PM EDT Office [place] [phone] Candy Clifford MD [facility] [place] [address] documented as of this encounter Goals Goal Patient Goal Type Associated Problems Recent Progress Patient-Stated? Author movement Exercise On track(2021 11:16 AM EDT) No Pankaj Mcadams Note: Try gentle movement like chair yoga, t'ai chi and qigong. Health Human Intelligence will send hand-outs. Use resistance bands. Health Human Intelligence will request a set be mailed. Movement Exercise On track(2021 11:16 AM EDT) No Pankaj Mcadams Note: Look around town, [employer] [facility], gyms, for a class to participate in, bone builders or gentle stretching. Nutrition Lifestyle No Candy Clifford MD Note: Nutrition Goals updated today: 12/11/22 TF 1. Focus on reaching adequate protein intake - aim for 60-80 grams (handout attached in after visit summary) 2. Consider the 3 eating events per day to be an opportunity to start with protein (cottage cheese, chilean yogurt, protein smoothies, chicken or chicken salad [...] and can't go back to sleep. Health Human Intelligence will send some to try. Tried apps [...] Tequila Gomes MD at 01/01/2023 9:08 AM Electronically signed by: Tequila Gomes MD, [facility] ([phone]), at 01/01/2023 9:08 AM Thank you for letting us participate in the care of this patient. If you are a health care provider and have any questions regarding this report, please contact the number above. For patients who have questions, please contact the health animal care specialist that requested your imaging first. ?Tequila Gomes Ricarda Tilting Head Band Sawyer Electronically Signed Final Report ?? 01/01/2023 09:17 am Narrative 01/01/2023 9:18 AM EDT Abdominal ? (Signed Final 01/01/2023 09:17 am) PATIENT INFO: ID #: ? [id number] ?: ??[birth year] (72 yrs)(F) Name: ? SHERRON Olsen ROBER ?Visit Date: 01/01/2023 08:14 am PERFORMED BY: Attending: ?Mireya GRACE, Tequila Longoria Performed By: ? Rupal Banks RDMS Referred By: ?REA SIERRA Location: ? [place] SERVICE(S) [facility] Hepat[facility] Protocol - Abdominal ?63120 Limited Survey Single Organ or Quadrant - [id number] INDICATIONS: CASAREZ/HCV/ETOH cirrhosis, screen for HCC, known [...] 01/01/2023 09:17 am) PATIENT INFO: ID #: [id number] : [birth year] (72 yrs)(F) Name: SHERRON RICHTRE Visit Date: 01/01/2023 08:14 am PERFORMED BY: Attending: Tequila Gomes MD Performed By: Rupal Banks RDMS Referred By: REA SIERRA Location: [place] SERVICE(S) PROVIDED: [facility] - Hepatology Protocol - Abdominal 20863 Limited Survey Single Organ or Quadrant - [id number] INDICATIONS: CASAREZ/HCV/ETOH cirrhosis, screen for HCC, known [...] Tequila Gomes MD at 01/01/2023 9:08 AM Electronically signed by: Tequila Gomes MD, [facility] ([phone]), at 01/01/2023 9:08 AM Thank you for letting us participate in the care of this patient. If you are a health care provider and have any questions regarding this report, please contact the number above. For patients who have questions, please contact the health animal care specialist that requested your imaging first. Tequila Gomes, [facility] Tilting Head Band Sawyer Electronically Signed Final Report 01/01/2023 09:17 am Rea Sierra MD IMG US GEN ORDERABLE S documented in this encounter Visit Diagnoses Diagnosis Hepatic cirrhosis, unspecified hepatic cirrhosis type, unspecified whether ascites present documented in this encounter Care Teams Bilingual Teacher Aide Relationship Specialty Start Date End Date Justino Lucia MD PCP - General Family Medicine 10/04/21 07/21/24 documented as of this encounter
--- OUTSIDE RECORDS SUMMARY | 2024-10-07 20:38 | XMS_ITS | Encounter Summary ---
Author Organization [facility] [place] [address] Care Team Providers Care Doctor Of Dental Medicine Name Role Phone Justino Lucia MD Primary Care Provider [phone] Encounter Details Date Type Department Care Team (Late st Contact Info) Description 12/03/2022 5:30 PM EDT Notes [place] [address] Social History Tobacco Use Types [...] 9:00 AM EDT Laboratory Appointment Lab [address] [place] [address] 01/20/2025 9:30 AM EDT [place] [address] Ana Ho MD [facility] [place] [address] 01/20/2025 11:00 AM EDT Office [place] [address] Ana Ho MD [facility] [place] [place] [address] 01/20/2025 12:00 PM EDT Office Visit Weight Center at [facility] [place] [phone] Candy Clifford MD [facility] DR [facility]ICHOL[facility] [place] [address] documented as of this encounter Goals Goal Patient Goal Type Associated Problems Recent Progress Patient-Stated? Author movement Exercise On track(2021 11:16 AM EDT) No Pankaj Mcadams Note: Try gentle movement like chair yoga, t'ai chi and qigong. Health Pricing Coordinator will send hand-outs. Use resistance bands. Health Pricing Coordinator will request a set be mailed. [...] sample meal ideas in the [facility] Keep food log until you are seen by the dieititian. Record everything you eat or drink, include time eaten and any emotional changes that are significant. relaxation/sleep Lifestyle Pankaj Russ Note: Try some meditation/relaxation apps when I wake in the night and can't go back to sleep. Health Pricing Coordinator will send some to try. Tried apps but don't really like them as I like the quiet when going to sleep. [facility] 04/23 documented as of this encounter Visit Diagnoses Not on filedocumented in this encounter Care Teams Doctor Of Dental Medicine Relationship Specialty Start Date End Date Justino Lucia MD PCP - General Family Medicine 10/04/21 07/21/24 documented as of this encounter
--- OUTSIDE RECORDS SUMMARY | 2024-10-07 20:38 | XMS_ITS | Encounter Summary ---
Author Organization [facility] [place] [address] Care Team Providers Care Client Coordinator Name Role Phone Justino Lucia MD Primary Care Provider [phone] Encounter Details Date Type Department Care Team (Late st Contact Info) Description 05/30/2022 12:00 PM EDT Notes Only Weight and Wellness at [facility] [address] [place] [phone] Social History Tobacco Use Types Packs/Day Years [...] 9:00 AM EDT Laboratory Appointment Lab [address] [place] [address] 01/20/2025 9:30 AM EDT Appointment [place] [address] Ana Ho MD [facility] [place] [address] 01/20/2025 11:00 AM EDT Office [place] [address] Ana Ho MD [facility] [place] [address] 01/20/2025 12:00 PM EDT Office Visit Weight Center at [facility] [place] [address] Candy Clifford MD [facility] DR [facility] [place] [address] documented as of this encounter Goals Goal Patient Goal Type Associated Problems Recent Progress Patient-Stated? Author movement Exercise On track(2021 11:16 AM EDT) No Pankaj Mcadams Note: Try gentle movement like chair yoga, t'ai chi and qigong. Health Dryland Farmer will send hand-outs. Use resistance bands. Health Dryland Farmer will request a set be mailed. Movement [...] for sample meal ideas in the [facility] Keep food log until you are seen by the dieititian. Record everything you eat or drink, include time eaten and any emotional changes that are significant. relaxation/sleep Lifestyle No Pankaj Mcadams Note: Try some meditation/relaxation apps when I wake in the night and can't go back to sleep. Health Dryland Farmer will send some to try. Tried apps but don't really like them as I like the quiet when going to sleep. [facility] 04/23 documented as of this encounter Visit Diagnoses Not on filedocumented in this encounter Care Teams Client Coordinator Relationship Specialty Start Date End Date Justino Lucia MD PCP - General Family Medicine 10/04/21 07/21/24 documented as of this encounter
--- OUTSIDE RECORDS SUMMARY | 2024-10-07 20:39 | XMS_ITS | Encounter Summary ---
Author Organization [facility] [place] [address] Care Team Providers Care Wind Projects Supervisor Name Role Phone Page, Aleida Lopez APRN Primary Care Provider [phone] Encounter Details Date Type Department Care Team (Late Contact Info) Description 05/21/2017 Abstract Cardiology at [address] [place] [address] Jame Cadet RN Social History Tobacco Use [...] 9:00 AM EDT Laboratory Appointment Lab [address] [place] [address] 01/20/2025 9:30 AM EDT Appointment [place] [address] Ana Ho MD [facility] [place] [address] 01/20/2025 11:00 AM EDT Office Visit [place] [address] Ana Ho MD [facility] [place] [place] [address] 01/20/2025 12:00 PM EDT Office Visit Weight Center at [facility] [place] [address] Candy Clifford MD [facility] DR [facility] [address] documented as of this encounter Visit Diagnoses Not on filedocumented in this encounter Care Teams Wind Projects Supervisor Relationship Specialty Start Date End Date Page, Aleida Lopez APRN [address] [place] [address] PCP - General Family Medicine 05/02/17 10/03/21 documented as of this encounter
--- OUTSIDE RECORDS SUMMARY | 2024-10-07 20:39 | XMS_ITS | Encounter Summary ---
Author Organization [facility] [place] [address] Care Team Providers Care Railroad Operator Name Role Phone Justino Lucia MD Primary Care Provider [phone] Encounter Details Date Type Department Care Team (Latest Contact Info) Description 05/14/2022 8:00 AM EDT Laboratory Appointment Lab [address] [place] [phone] Cirrhosis of liver without ascites, unspecified hepatic [...] 9:00 AM EDT Laboratory Appointment Lab [address] [place] [address] 01/20/2025 9:30 AM EDT [place] [address] [facility] [place] [address] 01/20/2025 11:00 AM EDT Office [place] [address] [facility] [place] [address] 01/20/2025 12:00 PM EDT Office [place] [address] [facility] [address] [facility] [address] documented as of this encounter Goals Goal Patient Goal Type Associated Problems Recent Progress Patient-Stated? Author movement Exercise On track(2021 11:16 AM EDT) No Pankaj Mcadams Note: Try gentle movement like chair yoga, t'ai chi and qigong. Health Travel Writer will send hand-outs. Use resistance bands. Health Travel Writer will request a set be mailed. Movement [...] opportunity to start with protein (cottage cheese, cameroonian yogurt, protein smoothies, chicken or chicken salad [...] and can't go back to sleep. Health Travel Writer will send some to try. Tried apps but don't really like them as I like the quiet when going to sleep. [facility] 04/23 documented as of this encounter [...] 7:58 AM EDT) Neutrophil % 65.2 % [facility] Neutrophil Absolute 4.09 1.70 - 6.10 x10(3)/[facility] Lymph % 21.3 % [facility] Lymphocytes Abs 1.3 0.9 - 3.2 x10(3)/[facility] Monocyte % 10.0 % [facility] Monocyte Abs 0.6 0.3 - 0.9 x10(3)/[facility] Eos % 3.0 % [facility] Eosinophils Abs 0.2 0.0 - 0.4 x10(3)/[facility] Basophil % 0.3 % [facility] Baso Absolute 0.0 0.0 - 0.1 x10(3)/[facility] Immature Gran % 0.20 % [facility] Comment: Immature granulocytes(IG's)percentage and absolute count will include metamyelocytes, myelocytes, and promyelocytes. Blood smears from CBCs yielding IG's will be scanned manually for concordance. If this scan disagrees with the automated IG or if promyelocytes are noted, a manual differential will be performed. Immature Gran Absolute 0.01 0.00 - 0.04 x10(3)/[facility] Blood 05/14/2022 7:58 AM EDT 05/14/2022 8:06 AM EDT Narrative Resulting Agency Comment Spec In Lab Glenn CHOWDHURY HEMATOLOGY ORDERABLE S [facility] [place] [address] * Hemogram (05/14/2022 7:58 AM EDT) White Blood Cell 6.3 4.0 - 9.5 x10(3)/[facility] Red Blood Cell 4.78 4.00 - 5.21 x10(6)/[facility] Hemoglobin 14.5 11.7 - 15.5 g/dL [facility] Hematocrit 43.0 35.7 - 45.8 % [facility] Mean Cell Volume 90.0 82.6 - 94.4 fL [facility] Mean Cell Hemoglobin 30.3 27.1 - 32.0 pg [facility] Mean Cell Hemoglobin Concentration 33.7 31.7 - 35.0 g/dL [facility] Platelet 247 145 - 357 x10(3)/[facility] RDW Standard Deviation 43.5 37.0 - 46.0 [facility] RDW coefficient of variation 13.2 11.5 - 14.1 % [facility] Mean Platelet Volume 10.2 7.6 - 12.9 [facility] NRBC% auto 0.0 % [facility] NRBC Absolute 0.000 0.000 - 0.000 x10(3)/[facility] Blood 05/14/2022 7:58 AM EDT 05/14/2022 8:06 AM EDT Narrative Resulting Agency Comment Spec In Lab Glenn CHOWDHURY HEMATOLOGY ORDERABLE S [facility] [place] [address] * Comprehensive metabolic panel (non-fasting) (05/14/2022 7:58 AM EDT) Glucose 107 65 - 199 mg/dL [facility] Comment:Diabetes: >=200 mg/d L plus symptoms Blood Urea Nitrogen 13 8 - 18 mg/dL [facility] Creatinine 0.81 0.70 - 1.20 mg/dL [facility] Sodium 140 135 - 145 mmol/L [facility] Potassium 4.0 3.5 - 5.0 mmol/L [facility] Comment: Please note: ??Patients with WBC >100,000 may have falsely elevated Potassium levels. ??For accurate Potassium quantification in these patients send serum separator tube (gold top) for subsequent determinations. ??Contact the Clinical Chemistry Laboratory if there are any questions. Chloride 104 98 - 107 mmol/L [facility] Carbon Dioxide 27 22 - 31 mmol/L [facility] Anion Gap 9 5 - 15 mmol/L [facility] Calcium 9.4 8.5 - 10.5 mg/dL [facility] Protein, Total 6.7 6.1 - 8.0 g/dL [facility] Albumin 3.9 3.2 - 5.2 g/dL [facility] Aspartate Aminotransferase 24 0 - 30 unit/L [facility] Alanine Aminotransferase 18 0 - 30 unit/L [facility] Alkaline Phosphatase 60 35 - 105 unit/L [facility] Bilirubin, Total 1.0 0.2 - 1.3 mg/dL [facility] Est Glomerular Filtration Rate 78 >=60 mL/min/1. 73 m?? [facility] Comment: This patient's estimated [...] In Lab Rea Hickey MD CHEMISTRY ORDERABLES [facility] [place] [address] * (ABNORMAL) Prothrombin Time (05/14/2022 7:58 AM EDT) Prothrombin Time 13.2(H) 9.4 - 12.5 sec [facility] International Normalization Ratio 1.2 [facility] Comment: An INR <2.0 [...] Lab Rea Hickey MD HEMATOLOGY ORDERABLE S [facility] [place] [address] documented in this encounter Visit Diagnoses Diagnosis Cirrhosis of liver without ascites, unspecified hepatic cirrhosis type documented in this encounter Care Teams Railroad Operator Relationship Specialty Start Date End Date Justino Lucia MD PCP - General Family Medicine 10/04/21 07/21/24 documented as of this encounter
--- OUTSIDE RECORDS SUMMARY | 2024-10-07 20:39 | XMS_ITS | Encounter Summary ---
Author Organization [facility] [place] [address] Care Team Providers Care Sliver Former Name Role Phone Amber Ratliff RIGOBERTO Primary Care Provider Encounter Details Date Type Department Care Team (Late st Contact Info) Description 04/03/2016 Interpretation Only Cardiology at [address] [address] Jaswant Teresa Jr., MD Palpitations Social History Tobacco Use Types Packs/Day [...] 9:00 AM EDT Laboratory Appointment Lab [address] [place] [address] 01/20/2025 9:30 AM EDT [place]oint[place] [phone] Ana Ho MD [facility] [place] [address] 01/20/2025 11:00 AM EDT Office [place] [address] Ana Ho MD [facility] [place] [address] 01/20/2025 12:00 PM EDT Office [place] [address] Candy Clifford MD [facility] DR [facility] [address] documented as of this encounter Visit Diagnoses Diagnosis Palpitations documented in this encounter Care Teams Sliver Former Relationship Specialty Start Date End Date Amber Ratliff APRN [address] [place] [address] PCP - General Family Medicine 02/07/16 05/01/17 documented as of this encounter
--- OUTSIDE RECORDS SUMMARY | 2024-10-07 20:39 | XMS_ITS | Encounter Summary ---
Author Organization [facility] [place] [address] Care Team Providers Care Biological Science Technician Fish Name Role Phone Justino Lucia MD Primary Care Provider [phone] Encounter Details Date Type Department Care Team (Late st Contact Info) Description 02/06/2022 External Results Weight and Wellness at [facility] [address] [place] [address] Alyce Santos, RN Social History Tobacco Use [...] 9:00 AM EDT Laboratory Appointment Lab [address] [place] [address] 01/20/2025 9:30 AM EDT Appointment [place] [address] Ana Ho MD [facility] [place] [address] 01/20/2025 11:00 AM EDT Office Visit [place] [address] Ana Ho MD [facility] [place] [address] 01/20/2025 12:00 PM EDT Office Visit Weight Center at [facility] [place] [address] Candy Clifford MD [facility] DR [facility] [place] [address] documented as of this encounter Goals Goal [...] for sample meal ideas in the USPS [facility] Keep food log until you are seen by the dieititian. Record everything you eat or drink, include time eaten and any emotional changes that are significant. documented as of this encounter Procedures Procedure Name Priority Date/Time Associated Diagnosis Comments [facility] EXTERNAL RESULT PANEL Routine 01/25/2022 documented in this encounter Results * (ABNORMAL) [facility] External Results (01/25/2022) Cholesterol, Total 110(L) Triglyceride 68 HDL Cholesterol 37(L) LDL Cholesterol 59 Hemoglobin A1c 5.5 Vitamin D Total 25 OH 40.1 Thyroid Stimulating Hormone 2.02 Vitamin B12 1,091(H) Ferritin 22.7 Insulin 28 01/25/2022 Historical Provider POINT OF CARE CAROL T ORDERABLES documented in this encounter Visit Diagnoses Not on filedocumented in this encounter Care Teams Biological Science Technician Fish Relationship Specialty Start Date End Date Justino Lucia MD PCP - General Family Medicine 10/04/21 07/21/24 documented as of this encounter
--- OUTSIDE RECORDS SUMMARY | 2024-10-07 20:39 | XMS_ITS | Encounter Summary ---
Author Organization [facility] [place] [address] Care Team Providers Care Telesales Advisor Name Role Phone Justino Lucia MD Primary Care Provider [phone] Reason for Visit * Reason Onset Date Comments Appointment 03/19/2022 Encounter Details Date Type Department Care Team (Late Contact Info) Description 03/19/2022 Telephone Weight and Wellness at [address] [phone] Jayashree Bryant Appointment Social History Tobacco Use [...] 9:00 AM EDT Laboratory Appointment Lab [address] [place] [address] 01/20/2025 9:30 AM EDT Appointment Ultrasound at [place] [phone] Ana Ho MD [facility] [place] [address] 01/20/2025 11:00 AM EDT Office [place] [address] Ana Ho MD [facility] [place] [address] 01/20/2025 12:00 PM EDT Office [place] [address] Candy Clifford MD [facility] DR [facility] [place] [address] documented as of this encounter Goals Goal Patient Goal Type Associated Problems Recent Progress Patient-Stated? Author movement Exercise On track(2021 11:16 AM EDT) No Pankaj Mcadams Note: Try gentle movement like chair yoga, t'ai chi and qigong. Health Psychiatric Social Worker will send hand-outs. Use resistance bands. Health Psychiatric Social Worker will request a set be mailed. [...] for sample meal ideas in the USPS [facility] Keep food log until you are seen by the dieititian. Record everything you eat or drink, include time eaten and any emotional changes that are significant. relaxation/sleep Lifestyle No Pankaj Mcadams Note: Try some meditation/relaxation apps when I wake in the night and can't go back to sleep. Health Psychiatric Social Worker will send some to try. Tried apps but don't really like them as I like the quiet when going to sleep. [facility] 04/23 documented as of this encounter Visit Diagnoses Not on filedocumented in this encounter Care Teams Telesales Advisor Relationship Specialty Start Date End Date Justino Lucia MD PCP - General Family Medicine 10/04/21 07/21/24 documented as of this encounter
--- OUTSIDE RECORDS SUMMARY | 2024-10-07 20:39 | XMS_ITS | Encounter Summary ---
Author Organization [place] [address] Care Team Providers Care Architectural Model Maker Name Role Phone Justino Lucia MD Primary Care Provider [phone] Reason for Referral * Diagnostic Test (Routine) - Closed Specialty Diagnoses / Procedures Referred By Contac t Referred To Contact Radiology Diagnoses Cirrhosis of liver without ascites, unspecified hepatic cirrhosis type Procedures CT Abdomen w Contrast CT Abdomen wwo Contrast Glenn Cardoso PA [address] [place] [address] [facility] [place] [address] Referral ID Status Reason Start Date Expiration Date V isits Requested Visits Authorized [id number] Closed Specialty Service Requested 02/02/2022 07/23/2022 1 1 Reason for Visit * Diagnostic Test (Routine) - Closed Specialty Diagnoses / Procedures Referred By Contac t Referred To Contact Radiology Diagnoses Cirrhosis of liver without ascites, unspecified hepatic cirrhosis type Procedures CT Abdomen w Contrast CT Abdomen wwo Contrast Glenn Cardoso PA [address] [place] [address] [facility] [place] [address] Referral ID Status Reason Start Date Expiration Date V isits Requested Visits Authorized [id number] Closed Specialty Service Requested 02/02/2022 07/23/2022 1 1 Encounter Details Date Type Department Care Team (Latest Contact Info) Description 05/14/2022 8:08 AM EDT - 05/14/2022 11:59 PM EDT Hospital Encounter CT Scan at [facility] [place] [address] Rea Hickey MD [facility] [place] [address] Cirrhosis of liver without ascites, unspecified hepatic [...] 01/20/2025 9:00 AM EDT Laboratory Appointment Lab [address] [phone] 01/20/2025 9:30 AM EDT [place] [phone] Ana Ho MD [facility] [place] [address] 01/20/2025 11:00 AM EDT Office [place] [phone] Ana Ho MD [facility] [place] [address] 01/20/2025 12:00 PM EDT Office [place] [phone] Candy [place] MD [facility] DR [facility]ICHOL[facility]DOM[place] [address] documented as of this encounter Goals Goal Patient Goal Type Associated Problems Recent Progress Patient-Stated? Author movement Exercise On track(2021 11:16 AM EDT) No Pankaj Mcadams Note: Try gentle movement like chair yoga, t'ai chi and qigong. Health Plating Department Helper will send hand-outs. Use resistance bands. Health Plating Department Helper will request a set be mailed. [...] and can't go back to sleep. Health Plating Department Helper will send some to try. Tried apps but don't really like them as I like the quiet when going to sleep. [facility] 04/23 documented as of this encounter Procedures [...] who have questions please contact the health youth care worker that requested your imaging first. ? Narrative [...] patients who have questions please contactthe health youth care worker that requested your imaging first. Rea Hickey MD IMG CT ORDERABLES documented [...] mLs documented in this encounter Care Teams Architectural Model Maker Relationship Specialty Start Date End Date Justino Lucia MD PCP - General Family Medicine 10/04/21 07/21/24 documented as of this encounter
--- OUTSIDE RECORDS SUMMARY | 2024-10-07 20:39 | XMS_ITS | Encounter Summary ---
Author Organization [facility] Address [facility] [place] [address] Care Team Providers Care Pizza Baker Name Role Phone Justino Lucia MD Primary Care Provider [phone] Encounter Details Date Type Department Care Team (Late st Contact Info) Description 04/20/2022 4:30 PM EDT TH Visit (TeleHealth) Weight and Wellness at [facility] [address] [place] [phone] Candy [place] MD [facility] DR NICHOL[facility] [place] [address] Class 3 severe obesity due to excess [...] this video visit, pt is located at: [facility] Patient [...] deficiency. GERD. OA. This is Visit #3 [facility] visit for this 71 y.o. patient. Weight gain due to: Unclear - sits at home; notes gaining weight when she moved here from [place] to take care of her dad about 10 years ago. Multiple deaths in the family in the same time frame. Initial weight 01/18/22: 335 lbs (33.5 lbs, 10%) 03/01/2022, 335 lbs (no change) 04/20/2022, 328.5 lbs (-6.5 lbs) [facility] Team: Lacey Martino RD and Pankaj Mcadams, [facility] HPI Was sick for a couple of weeks, flu like symptoms, didn't eat for a couple of days. Feeling better but a little cough. COVID negative. Didn't call PCP. Movement: PT in [place], enjoying this, doing steps now - walking [...] tolerated. Continue engagement with HC and classes. [facility] PATHWAY - ADULT 01/18/2022 Obesity Medicine Activate Goals ??? movement Try gentle movement like chair yoga, t'ai chi and qigong. Health Edge Kitter will send hand-outs. Use resistance bands. [facility] Edge Kitter will request a set be mailed. ??? [...] and can't go back to sleep. Health Edge Kitter will send some to try. Tried apps but don't really like them as I like the quiet when going to sleep. [facility] 04/23 VITAL SIGNS: There were no [...] for: GLUCFASTING Lab Results Component Value Date [id number] 1,091 (H) 01/25/2022 25-OH Vit D Total [...] deficiency. GERD. OA. Referrals pending: Dietitian, [facility] AOM: Ozempic 0.5 mg Diagnoses and all [...] me. 3 min chart review 30 min [id number] Visit time 5 min Documentation time I [...] 9:00 AM EDT Laboratory Appointment Lab [address] [place] [phone] 01/20/2025 9:30 AM EDT Appointment Ultrasound at [place] [phone] Ana Ho MD [facility] [place] [address] 01/20/2025 11:00 AM EDT Office Visit Gastroenterology at [place] [phone] Ana Ho MD [facility] [place] [address] 01/20/2025 12:00 PM EDT Office [place] [phone] Candy [place] MD [facility] DR NICHOLAS [place] [address] documented as of this encounter Goals Goal Patient Goal Type Associated Problems Recent Progress Patient-Stated? Author movement Exercise On track(2021 11:16 AM EDT) No Pankaj Mcadams Note: Try gentle movement like chair yoga, t'ai chi and qigong. [facility] will send hand-outs. Use resistance bands. [facility] will request a set be mailed. Movement Exercise On track(2021 11:16 AM EDT) No Pankaj Mcadams Note: Look around town, [facility], gyms, for a class to participate [...] for sample meal ideas in the [facility]PS [facility] Keep food log until you are seen by the dieititian. Record everything you eat or drink, include time eaten and any emotional changes that are significant. relaxation/sleep Lifestyle No Pankaj Mcadams Note: Try some meditation/relaxation apps when I wake in the night and can't go back to sleep. [facility] will send some to try. Tried apps [...] type documented in this encounter Care Teams Pizza Baker Relationship Specialty Start Date End Date Justino Lucia MD PCP - General Family Medicine 10/04/21 07/21/24 documented as of this encounter
--- OUTSIDE RECORDS SUMMARY | 2024-10-07 20:39 | XMS_ITS | Encounter Summary ---
Author Organization [facility] [place] [address] Care Team Providers Care Post Partum Nurse Name Role Phone Justino Lucia MD Primary Care Provider [phone] Encounter Details Date Type Department Care Team (Late st Contact Info) Description 05/14/2022 1:30 PM EDT Office [place] [phone] Glenn Cardoso PA [address] [place] [address] [place] [address] Hepatic cirrhosis, unspecified hepatic cirrhosis type, unspecified [...] CASAREZ/ROBER -Previously followed by Dr. Ramon @ [facility], longstanding follow-up, [place] [facility] [place]Liver biopsy 1990 in [place] [...] -FHx of hemochromatosis (HFE negative) -Following with [facility] since spring 2021 with good success [...] Vitals: 05/14/22 1305 BP: 145/71 BP Location ([facility]): Left arm Patient Position: Sitting BP Cuff [...] Cardoso PA-C Section of [place]astroenter[place] [address] Cc: Justino Lucia MD @PCPADD@ documented in this encounter Plan of Treatment Upcoming Encounters Date Type Department Care Team (Late st Contact Info) Description 01/20/2025 9:00 AM EDT Laboratory Appointment Lab [address] [place] [address] 01/20/2025 9:30 AM EDT Appointment Ultrasound at [place] [phone] Ana Ho MD [facility] [place] [address] 01/20/2025 11:00 AM EDT Office Visit [place] [address] Ana Ho MD [facility] [address] 01/20/2025 12:00 PM EDT Office [place] [phone] Candy [place] MD [facility] [address] [place] [address] Scheduled Orders Name Type Priority Associated Diagnoses Orde r Schedule Hemoglobin A1c Lab Routine Prediabetes Expected: 11/11/2022 (Approximate), Expires: 05/13/2023 documented as of this encounter Goals Goal Patient Goal Type Associated Problems Recent Progress Patient-Stated? Author movement Exercise On track(2021 11:16 AM EDT) No Pankaj Mcadams Note: Try gentle movement like chair yoga, t'ai chi and qigong. Health Grinder Machine Setter will send hand-outs. Use resistance bands. Health Grinder Machine Setter will request a set be [...] for sample meal ideas in the USPS [facility] Keep food log until you are seen by the dieititian. Record everything you eat or drink, include time eaten and any emotional changes that are significant. relaxation/sleep Lifestyle Pankaj Russ Note: Try some meditation/relaxation apps when I wake in the night and can't go back to sleep. Health Grinder Machine Setter will send some to try. Tried apps but don't really like them as I like the quiet when going to sleep. [facility] 04/23 documented as of this encounter Results * (ABNORMAL) Prothrombin Time (01/01/2023 8:48 AM EDT) Prothrombin Time 13.1(H) 9.4 - 12.5 sec [facility] International Normalization Ratio 1.1 [facility] Comment: An INR <2.0 indicates adequate [...] Lab Rea Sierra MD HEMATOLOGY ORDERABLE S [facility] [place] [address] * Comprehensive metabolic panel (non-fasting) (01/01/2023 8:48 AM EDT) Glucose 90 65 - 199 mg/dL [facility] Comment:Diabetes: >=200 mg/d L plus symptoms Blood Urea Nitrogen 12 8 - 18 mg/dL [facility] Creatinine 0.77 0.70 - 1.20 mg/dL [facility] Sodium 142 135 - 145 mmol/L [facility] Potassium 3.9 3.5 - 5.0 mmol/L [facility] Comment: Please note: ??Patients with WBC >100,000 may have falsely elevated Potassium levels. ??For accurate Potassium quantification in these patients send serum separator tube (gold top) for subsequent determinations. ??Contact the Clinical Chemistry Laboratory if there are any questions. Chloride 105 98 - 107 mmol/L [facility] Carbon Dioxide 29 22 - 31 mmol/L [facility] Anion Gap 8 5 - 15 mmol/L [facility] Calcium 9.2 8.5 - 10.5 mg/dL [facility] Protein, Total 6.8 6.1 - 8.0 g/dL [facility] Albumin 3.8 3.2 - 5.2 g/dL [facility] Aspartate Aminotransferase 28 0 - 30 unit/L [facility] Alanine Aminotransferase 16 0 - 30 unit/L [facility] Alkaline Phosphatase 84 35 - 105 unit/L [facility] Bilirubin, Total 1.0 0.2 - 1.3 mg/dL [facility] Est Glomerular Filtration Rate 82 >=60 mL/min/1. 73 m?? [facility] Comment: This patient's estimated GFR was [...] In Lab Rea Sierra MD CHEMISTRY ORDERABLES [facility] [place] [address] * US Abdomen Limited Hepatology Protocol (01/01/2023 [...] AM Electronically signed by: Tequila Gomes MD, [facility] ([phone]), at 01/01/2023 9:08 AM Thank you for letting us participate in the care of this patient. If you are a health care provider and have any questions regarding this report, please contact the number above. For patients who have questions, please contact the health morning caregiver that requested your imaging first. ?Tequila Gomes E Liquid Natural Gas Plant Operator Electronically Signed Final Report ?? 01/01/2023 09:17 am Narrative 01/01/2023 9:18 AM EDT Abdominal ? (Signed Final 01/01/2023 09:17 am) PATIENT INFO: ID #: ? [id number] ?: ??[birth year] (72 yrs)(F) Name: ? SHERRON RICHTER ?Visit Date: 01/01/2023 08:14 am PERFORMED BY: Attending: ?Mireya GRACE, Tequila Longoria Performed By: ? Rupal Banks RDMS Referred By: ?REA AHNR Location: ? [place] SERVICE(S) PROVIDED: [facility] - Hepatology Protocol - Abdominal ?[id number] Limited Survey Single Organ or Quadrant - [id number] INDICATIONS: CASAREZ/HCV/ETOH cirrhosis, screen for HCC, known [...] 01/01/2023 09:17 am) PATIENT INFO: ID #: [id number] : [birth year] (72 yrs)(F) Name: SHERRON RICHTER Visit Date: 01/01/2023 08:14 am PERFORMED BY: Attending: Tequila Gomes MD Performed By: Rupal Banks RDMS Referred By: REA SIERRA Location: [place] SERVICE(S) PROVIDED: [facility] - Hepatology Protocol - Abdominal [id number] Limited Survey Single Organ or Quadrant - [id number] INDICATIONS: CASAREZ/HCV/ETOH cirrhosis, screen for HCC, known [...] at 01/01/2023 9:08 AM Electronically signed by: Tequial Gomes MD, [facility] ([phone]), at 01/01/2023 9:08 AM Thank you for letting us participate in the care of this patient. If you are a health care provider and have any questions regarding this report, please contact the number above. For patients who have questions, please contact the health morning caregiver that requested your imaging first. Tequila Gomes E Liquid Natural Gas Plant Operator Electronically Signed Final Report 01/01/2023 09:17 am [...] present documented in this encounter Care Teams Post Partum Nurse Relationship Specialty Start Date End Date Justino Lucia MD PCP - General Family Medicine 10/04/21 07/21/24 documented as of this encounter
--- OUTSIDE RECORDS SUMMARY | 2024-10-07 20:39 | XMS_ITS | Encounter Summary ---
Author Organization [facility] Address One [facility] [address] Care Team Providers Care Electronics Technician Apprentice Name Role Phone Justino Lucia MD Primary Care Provider [phone] Encounter Details Date Type Department Care Team (Latest Contact Info) Description 04/17/2022 9:30 AM EDT TH Visit (TeleHealth) Weight and Wellness at [facility] [address] [place] [phone] Pankaj Mcadams Class 3 severe obesity due [...] classes or activities to participate in. The [facility] often has bone builders and gentle stretching classes. If there is a gym close by, you might find something there. Remember to also take some time each day to write about something that went well for you or that you appreciate about yourbody or that made you smile :) I look forward to hearing what you learn! Be well, Pankaj Mcadams Health Lace Cutter documented in this encounter Progress Notes * [...] chair yoga, t'ai chi and qigong. Health Lace Cutter will send hand-outs. Use resistance bands. Health Lace Cutter will request a set be mailed. ??? [...] and can't go back to sleep. Health Lace Cutter will send some to try. Exercise PT, [...] never feel hungry Future follow-up with health field hockey and lacrosse coach will address identified areas of concern: [...] increasing mindfulness throughout the day. Your health field hockey and lacrosse coach is well-equipped to guide you to find something to look forward to everyday. Eating behaviors: many people benefit from restricting the hours in which they eat. You can choose an eating window of 8-12 hours to start. Make a pact with yourself that you will not take in anything with caloric content outside this window. Your injection mold tooling technician may make further recommendations documented in this encounter Plan of Treatment Upcoming Encounters Date Type Department Care Team (Late st Contact Info) Description 01/20/2025 9:00 AM EDT Laboratory Appointment Lab [address] [place] [phone] 01/20/2025 9:30 AM EDT Appointment Ultrasound at [place] [phone] Ana Ho MD [facility] [place] [address] 01/20/2025 11:00 AM EDT Office [place] [address] Ana Ho MD [facility] [place] [address] 01/20/2025 12:00 PM EDT Office [place] [address] Candy [place] MD [facility] DR NICHOLAS [place] [address] documented as of this encounter Goals Goal Patient Goal Type Associated Problems Recent Progress Patient-Stated? Author movement Exercise On track(2021 11:16 AM EDT) No Pankaj Mcadams Note: Try gentle movement like chair yoga, t'ai chi and qigong. Health Lace Cutter will send hand-outs. Use resistance bands. Health Lace Cutter will request a set be mailed. Movement [...] and can't go back to sleep. Health Lace Cutter will send some to try. Tried apps but don't really like them as I like the quiet when going to sleep. [facility] 04/23 documented as of this encounter Visit Diagnoses Diagnosis Class 3 severe obesity due to excess calories with serious comorbidity and body mass index (BMI) of 60.0 to 69.9 in adult documented in this encounter Care Teams Electronics Technician Apprentice Relationship Specialty Start Date End Date Justino Lucia MD PCP - General Family Medicine 10/04/21 07/21/24 documented as of this encounter
--- OUTSIDE RECORDS SUMMARY | 2024-10-07 20:39 | XMS_ITS | Encounter Summary ---
Author Organization [facility] [place] [address] Care Team Providers Care Pastor Name Role Phone Page, Aleida Lopez APRN Primary Care Provider [phone] Encounter Details Date Type Department Care Team (Late st Contact Info) Description 04/06/2021 Ancillary Procedure Radiology Library at [facility] [place] [address] Justino Lucia MD [address] [place] [address] [place] [address] Social History Tobacco Use Types Packs/Day Years [...] 9:00 AM EDT Laboratory Appointment Lab [address] [place] [address] 01/20/2025 9:30 AM EDT Appoint[place] [address] Ana Ho MD [facility] [place] [address] 01/20/2025 11:00 AM EDT Office [place] [phone] Ana Ho MD [facility] [place] [address] 01/20/2025 12:00 PM EDT Office [place] [phone] Candy [place] MD [facility] DR NICHOL[facility] [place] [address] documented as of this encounter Procedures Procedure Name Priority Date/Time Associated Diagnosis Comments FILM LIBRARY STORAGE ONLY ULTRASOUND STUDY Routine 04/06/2021 12:00 AM EDT documented in this encounter Results * Film Library- Storage Only Ultrasound Study (04/06/2021 12:00 AM EDT) Narrative [facility] - 11/20/2021 4:51 PM EDT This exam is auto-finalizing. It's purpose is for storage only. Justino Lucia MD IMG FILM LIBRARY ORD ERABLES [place], [place] documented in this encounter Visit Diagnoses Not on filedocumented in this encounter Care Teams Pastor Relationship Specialty Start Date End Date Aleida Alva APRN [address] [place] [address] PCP - General Family Medicine 05/02/17 10/03/21 documented as of this encounter
--- OUTSIDE RECORDS SUMMARY | 2024-10-07 20:39 | XMS_ITS | Encounter Summary ---
Author Organization [facility] Address [address] [place] [address] Care Team Providers Care Lease Examiner Name Role Phone Justino Lucia MD Primary Care Provider [phone] Encounter Details Date Type Department Care Team (Latest Contact Info) Description 02/06/2022 2:30 PM EDT TH Visit (TeleHealth) Weight and Wellness at [facility] [address] [place] [phone] Pankaj Mcadams Class 3 severe obesity due [...] you soon. Be well, Pankaj Mcadams Health Demi Chef documented in this encounter Progress Notes * Pankaj Mcadams - 02/06/2022 2:30 PM EDT Telma Raúl Richter is here today [...] of portion sizes Future follow-up with health assistant basketball coach will address identified areas of [...] mindfulness throughout the day. Your health assistant basketball coach is well-equipped to guide you to find something to look forward to everyday. Eating behaviors: many people benefit from restricting the hours in which they eat. You can choose an eating window of 8-12 hours to start. Make a pact with yourself that you will not take in anything with caloric content outside this window. Your processing operator may make further recommendations documented in this encounter Plan of Treatment Upcoming Encounters Date Type Department Care Team (Late st Contact Info) Description 01/20/2025 9:00 AM EDT Laboratory Appointment Lab [address] [place] [address] 01/20/2025 9:30 AM EDT [place] [phone] Ana Ho MD [facility] [place] [address] 01/20/2025 11:00 AM EDT Office Visit Gastroenterology at [place] [phone] Ana Ho MD [facility] [place] [address] 01/20/2025 12:00 PM EDT Office [place] [phone] Candy [place] MD [facility] DR NICHOLAS PERDOM[place] [address] documented as of this encounter Goals Goal Patient Goal Type Associated Problems Recent Progress Patient-Stated? Author movement Exercise On track(2021 11:16 AM EDT) No Pankaj Mcadams Note: Try gentle movement like chair yoga, t'ai chi and qigong. Health Demi Chef will send hand-outs. Use resistance bands. Health Demi Chef will request a set be mailed. Nutrition Lifestyle No Candy [place] MD Note: Nutrition Goals updated today: 12/11/22 TF 1. Focus on reaching adequate protein intake - aim for 60-80 grams (handout attached in after visit summary) 2. Consider the 3 eating events per day to be an opportunity to start with protein (cottage cheese, icelandic yogurt, protein smoothies, chicken or chicken salad [...] for sample meal ideas in the USPS [facility] Keep food [...] adult documented in this encounter Care Teams Lease Examiner Relationship Specialty Start Date End Date Justino Lucia MD PCP - General Family Medicine 10/04/21 07/21/24 documented as of this encounter
--- OUTSIDE RECORDS SUMMARY | 2024-10-07 20:39 | XMS_ITS | Encounter Summary ---
Author Organization [facility] Address [facility] [place] [address] Care Team Providers Care Real Estate Loan Officer Name Role Phone Justino Lucia MD Primary Care Provider [phone] Reason for Visit * Consultation (Routine) - Closed Specialty Diagnoses / Procedures Referred By Contac t Referred To Contact Gastroenterology Diagnoses Gastric varices Unspecified cirrhosis of liver Justino Lucia MD [address] [place] [address] [place] [address] [facility] [place] [address] Referral ID Status Reason Start Date Expiration Date V isits Requested Visits Authorized [id number] Closed Consult, Test & Treat Connection Center PCP Updated and/or Approved 10/02/2021 03/31/2022 1 1 Encounter Details Date Type Department Care Team (Late st Contact Info) Description 12/14/2021 12:30 PM EDT Office [place] [address] Glenn Cardoso PA [address] [place] [address] [place] [address] Hepatic cirrhosis, unspecified hepatic cirrhosis [...] Richter Sex: female Date of : 1950 CUSTODY ASSISTANT: Glenn Cardoso PA-C PCP: Justino Lucia [...] is previously followed by Dr. Ramon in [place] for several years for her cirrhosis care. 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 Ramon): Imaging: No abdominal imaging in referral records ASSESSMENT/PLAN Telma Richter is a 71 y.o. 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 She has had no obvious episodes of decompensation that we are aware of. 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 She does have [...] year for her history of polyps in . Discussed ongoing need for routine hepatocellular carcinoma [...] encounter on date of service: 87 minutes AASHISH MartinezC Section of Gastroenterology [place] [address] Copy: MD Justino Ni documented in this encounter Plan of Treatment Upcoming Encounters Date Type Department Care Team (Late st Contact Info) Description 01/20/2025 9:00 AM EDT Laboratory Appointment Lab 3L [place] [phone] 01/20/2025 9:30 AM EDT Appointment Ultrasound at [place] [phone] Ana Ho MD [facility] [address] 01/20/2025 11:00 AM EDT Office Visit Gastroenterology at [place] [phone] Ana Ho MD [facility] [place] [address] 01/20/2025 12:00 PM EDT Office Visit Weight Center at [place] [phone] Candy Clifford MD [facility] [place] [address] documented as of this encounter Procedures Procedure [...] present HC CBC,PLT & AUTO DIFF Routine 1:41 PM EDT Hepatic cirrhosis, unspecified hepatic [...] 1:41 PM EDT) Neutrophil % 66.1 % [facility] Neutrophil Absolute 4.29 1.70 - 6.10 x10(3)/[facility] LABORATORY Lymph % 23.0 % [facility] Lymphocytes Abs 1.5 0.9 - 3.2 x10(3)/[facility] LABORATORY Monocyte % 8.9 % [facility] Monocyte Abs 0.6 0.3 - 0.9 x10(3)/[facility] LABORATORY Eos % 1.5 % [facility] Eosinophils Abs 0.1 0.0 - 0.4 x10(3)/[facility] LABORATORY Basophil % 0.3 % [facility] Baso Absolute 0.0 0.0 - 0.1 x10(3)/[facility] LABORATORY Immature Gran % 0.20 % [facility] Comment: Immature granulocytes(IG's)percentage and absolute count will include metamyelocytes, myelocytes, and promyelocytes. Blood smears from CBCs yielding IG's will be scanned manually for concordance. If this scan disagrees with the automated IG or if promyelocytes are noted, a manual differential will be performed. Immature Gran Absolute 0.01 0.00 - 0.04 x10(3)/[facility] LABORATORY Blood 12/14/2021 1:41 PM EDT 12/14/2021 1:52 PM EDT Narrative Resulting Agency Comment Spec In Lab Glenn CHOWDHURY HEMATOLOGY ORDERABLE S [facility] [place] [address] * (ABNORMAL) Hemogram (12/14/2021 1:41 PM EDT) White Blood Cell 6.5 4.0 - 9.5 x10(3)/ L [facility] Red Blood Cell 5.10 4.00 - 5.21 x10(6)/[facility] LABORATORY Hemoglobin 14.6 11.7 - 15.5 g/dL [facility] Hematocrit 44.4 35.7 - 45.8 % [facility] Mean Cell Volume 87.1 82.6 - 94.[address] [facility] Mean Cell Hemoglobin 28.6 27.1 - 32.[address] [facility] Mean Cell Hemoglobin Concentration 32.9 31.7 - 35.0 g/dL [facility] Platelet 247 145 - 357 x10(3)/ L [facility] RDW Standard Deviation 48.8(H) 37.0 - 46.[address] [facility] RDW coefficient of variation 15.4(H) 11.5 - 14.1 % [facility] Mean Platelet Volume 9.9 7.6 - 12.[address] [facility] NRBC% auto 0.0 % [facility] NRBC Absolute 0.000 0.000 - 0.000 x10(3)/mc L [facility] Blood 12/14/2021 1:41 PM EDT 12/14/2021 1:52 PM EDT Narrative Resulting Agency Comment Spec In Lab Glenn CHOWDHURY HEMATOLOGY ORDERABLE S Performing Organization Address City/[facility]/ZIP Co de Phone Number [facility] [place] [address] * (ABNORMAL) Ammonia (12/14/2021 1:41 PM EDT) Ammonia 64(H) 11 - 51 mcmol/L [facility] Blood 12/14/2021 1:41 PM EDT 12/14/2021 1:45 PM EDT Narrative Resulting Agency Comment Spec In Lab Rea Hickey MD CHEMISTRY ORDERABLES Performing Organization Address City/[facility]/ZIP Co de Phone Number [facility] [place] [address] * AFP tumor marker (12/14/2021 1:41 PM EDT) Alpha Fetoprotein 3.2 <=8.3 ng/mL [facility] Blood 12/14/2021 1:41 PM EDT 12/14/2021 1:52 PM EDT Narrative Resulting Agency Comment Spec In Lab Rea Hickey MD CHEMISTRY ORDERABLES Performing Organization Address City/[facility]/ZIP Co de Phone Number [facility] [place] [address] * (ABNORMAL) Prothrombin Time (12/14/2021 1:41 PM EDT) Prothrombin Time 13.4(H) 9.4 - 12.[address] [facility] International Normalization Ratio 1.2 [facility] Comment: An INR <2.0 indicates [...] Lab Rea Hickey MD HEMATOLOGY ORDERABLE S [facility] [place] [address] * Comprehensive metabolic panel (non-fasting) (12/14/2021 1:41 PM EDT) Glucose 102 65 - 199 mg/dL [facility] Comment:Diabetes: >=200 mg/d L plus symptoms Blood Urea Nitrogen 14 8 - 18 mg/dL [facility] Creatinine 0.82 0.70 - 1.20 mg/dL [facility] Sodium 141 135 - 145 mmol/L [facility] Potassium 4.1 3.5 - 5.0 mmol/L [facility] Comment: Please note: ??Patients with WBC >100,000 may have falsely elevated Potassium levels. ??For accurate Potassium quantification in these patients send serum separator tube (gold top) for subsequent determinations. ??Contact the Clinical Chemistry Laboratory if there are any questions. Chloride 104 98 - 107 mmol/L [facility] Carbon Dioxide 27 22 - 31 mmol/L [facility] Anion Gap 10 5 - 15 mmol/L [facility] Calcium 9.5 8.5 - 10.5 mg/dL [facility] Protein, Total 7.2 6.1 - 8.0 g/dL [facility] Albumin 4.0 3.2 - 5.2 g/dL [facility] Aspartate Aminotransferase 30 0 - 30 unit/L [facility] Alanine Aminotransferase 26 0 - 30 unit/L [facility] Alkaline Phosphatase 77 35 - 105 unit/L [facility] Bilirubin, Total 0.9 0.2 - 1.3 mg/dL [facility] Est Glomerular Filtration Rate 72 >=60 mL/min/1. 73 m?? [facility] Comment: This patient? s estimated glomerular [...] Hickey MD CHEMISTRY ORDERABLES Performing Organization Address City/State/[facility] Co de Phone Number [facility] [place] [address] documented in this encounter Visit Diagnoses Diagnosis Hepatic cirrhosis, unspecified hepatic cirrhosis type, unspecified whether ascites present- Primary History of hepatitis C Personal history of other infectious and parasitic disease Portal hypertension Class 3 severe obesity due to excess calories with serious comorbidity and body mass index (BMI) of 60.0 to 69.9 in adult documented in this encounter Care Teams Real Estate Loan Officer Relationship Specialty Start Date End Date Justino Lucia MD PCP - General Family Medicine 10/04/21 07/21/24 documented as of this encounter
--- OUTSIDE RECORDS SUMMARY | 2024-10-07 20:39 | XMS_ITS | Encounter Summary ---
Author Organization [facility] [place] [address] Care Team Providers Care Stock Mover Name Role Phone Justino Lucia MD Primary Care Provider [phone] Reason for Visit * Reason Comments Medication Refill Encounter Details Date Type Department Care Team (Late st Contact Info) Description 06/05/2016 Refill [place] [phone] Espinoza Chaidez MD Social History Tobacco Use Types Packs/Day Years [...] 9:00 AM EDT Laboratory Appointment Lab [address] [place] [phone] 01/20/2025 9:30 AM EDT Appointment [place] [phone] Ana Ho MD [facility] [place] [address] 01/20/2025 11:00 AM EDT Office Visit [place] [address] Ana Ho MD [facility] [place] [address] 01/20/2025 12:00 PM EDT Office Visit Weight Center at [facility] [place] [address] Candy Clifford MD [facility] DR NICHOLAS [place] [address] documented as of this encounter Goals Goal Patient Goal Type Associated Problems Recent Progress Patient-Stated? Author movement Exercise On track(2021 11:16 AM EDT) No Pankaj Mcadams Note: Try gentle movement like chair yoga, t'ai chi and qigong. [facility] will send hand-outs. Use resistance bands. [facility] will request a set be mailed. Nutrition [...] and can't go back to sleep. [facility] will send some to try. Tried apps but don't really like them as I like the quiet when going to sleep. [facility] 04/23 documented as of this encounter Visit Diagnoses Not on filedocumented in this encounter Care Teams Stock Mover Relationship Specialty Start Date End Date Justino Lucia MD PCP - General Family Medicine 10/04/21 07/21/24 documented as of this encounter
--- OUTSIDE RECORDS SUMMARY | 2024-10-07 20:39 | XMS_ITS | Encounter Summary ---
Author Organization [facility] Address [facility] [place] [address] Care Team Providers Care Customs Collector Name Role Phone Justino Lucia MD Primary Care Provider [phone] Encounter Details Date Type Department Care Team (Late st Contact Info) Description 01/17/2022 Telephone Weight and Wellness at [facility] [address] [place] [address] Claudia Marshall, TRAY PACKER Social History Tobacco Use Types Packs/Day Years [...] PM EDT [facility] Bariatric Nurse Pre-telemedicine Visit Phone Note Telma Richter 1950 [] Patient was not reached Patient was reached and the following information was reviewed/obtained per protocol: [x] Confirmed patient name and date of [x] Confirmed ZOOM downloaded and functioning [] ZOOM appointment link sent if no MyDH [x] Phone number to be reached is: [phone] REVIEW: [x] Review of patient medications completed Have you started on any NEW medications? [] No [] Yes: [x] Confirmed preferred pharmacy: [facility] [place] Rem[facility]ers Your provider might ask you what you ate the day prior to the visit Please weigh yourself before the appointment Pedi: Both parent and child need to be present for the visit documented in this encounter Plan of Treatment Upcoming Encounters Date Type Department Care Team (Late st Contact Info) Description 01/20/2025 9:00 AM EDT Laboratory Appointment Lab 3L [place] [phone] 01/20/2025 9:30 AM EDT [place] [address] Ana Ho MD [facility] [place] [address] 01/20/2025 11:00 AM EDT Office Visit Gastroenterology at [place] [phone] Ana Ho MD [facility] [place] [address] 01/20/2025 12:00 PM EDT Office [place] [phone] Candy Clifford MD [facility] DR NICHOLAS PERDOM[place] [address] documented as of this encounter Visit Diagnoses Not on filedocumented in this encounter Care Teams Customs Collector Relationship Specialty Start Date End Date Justino Lucia MD PCP - General Family Medicine 10/04/21 07/21/24 documented as of this encounter
--- OUTSIDE RECORDS SUMMARY | 2024-10-07 20:39 | XMS_ITS | Encounter Summary ---
Author Organization [facility] [place] [address] Care Team Providers Care Mercury Washer Name Role Phone Justino Lucia MD Primary Care Provider [phone] Encounter Details Date Type Department Care Team (Late st Contact Info) Description 01/22/2022 Orders [place] [address] Glenn Cardoso PA [address] [place], [place] [address]Y [place], [place] [id number] Family history of hemochromatosis Social History Tobacco [...] 9:00 AM EDT Laboratory Appointment Lab [address] [place] [address] 01/20/2025 9:30 AM EDT [place] [address] Ana Ho MD [facility] [place] [place] [address] 01/20/2025 11:00 AM EDT Office [place] [address] Ana Ho MD [facility] [place] [address] 01/20/2025 12:00 PM EDT Office [place] [address] Candy Clifford MD [facility] DR NICHOLAS [place] [address] documented as of this encounter Goals Goal [...] opportunity to start with protein (cottage cheese, urdu yogurt, protein smoothies, chicken or chicken salad [...] for sample meal ideas in the [facility] Keep food log until you are seen by the dieititian. Record everything you eat or drink, include time eaten and any emotional changes that are significant. documented as of this encounter Visit Diagnoses Diagnosis Family history of hemochromatosis Family history of other endocrine and metabolic diseases documented in this encounter Care Teams Mercury Washer Relationship Specialty Start Date End Date Justino Lucia MD PCP - General Family Medicine 10/04/21 07/21/24 documented as of this encounter
--- OUTSIDE RECORDS SUMMARY | 2024-10-07 20:39 | XMS_ITS | Encounter Summary ---
Author Organization [facility] [place] [address] Care Team Providers Care Supervisor Line Department Name Role Phone Justino Lucia MD Primary Care Provider Reason for Referral * Consultation (Routine) - Duplicate Referral Specialty Diagnoses / Procedures Referred By Contac t Referred To Contact Weight and Wellness Diagnoses Morbid obesity with BMI of 60.0-69.9, adult Julian Oviedo MD [facility] [place] [address] [facility] [address] [place] [address] Referral ID Status Reason Start Date Expiration Date Visits Requested Visits Authorized [id number] Duplicate Referral Consult, Test & Treat 12/01/2021 12/01/2022 1 1 Reason for Visit * Reason Comments [facility] LT HIP PAIN * Consultation (Routine) - Closed Specialty Diagnoses / Procedures Referred By Contac t Referred To Contact Orthopaedics Diagnoses Left Hip pain Jim Galan MD [address] [place] [address] [facility] [address] [place] [address] Referral ID Status Reason Start Date Expiration Date V isits Requested Visits Authorized [id number] Closed Consult, Test & Treat PCP Updated and/or Approved 11/20/2021 11/20/2022 6 6 Encounter Details Date Type Department Care Team (Latest Contact Info) Description 12/01/2021 9:00 AM EDT Office Visit [place] [address] Riley Morgan MD [facility] DR [place] [address] Morbid obesity with BMI of 60.0-69.9, adult; [...] Adult Joint Reconstructive Surgery Subjective: RE: Telma Olsen Rober CC: Chief Complaint Patient presents with ??? [facility] LT HIP PAIN DIAGNOSIS: Osteoarthritis (M19.10) , LEFT hip. Morbid obesity (BMI 65) ARTHROPLASTY PROCEDURES: 1. Left Total Shoulder Arthroplasty 2019, [facility] Telma Richter was referred from Self mail HISTORY [...] less than $20,000 # People Supported 2 Ukrainian, , No, not Ukrainian// Race White Health Literacy Extremely Currently working No Not working because: Retired [facility] Response 11/25/2021 HOOS JR Scores 32.74 Spine [facility] Response 11/25/2021 HOOS JR Scores 32.74 ALLERGIES: No Known Allergies Allergies to metals: none SOCIAL HISTORY: reports that she has quit smoking. Her smoking use included cigarettes. She has a 126.00 pack-year smoking history. She has never used smokeless tobacco. She reports current drug use.Drug: Marijuana. She reports that she does not drink alcohol. 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 [employer] SIGNIFICANT MEDICAL COMORBIDITIES: Patient Active Problem List [...] Trendelenburg test: unable to assess Right Left Stinchfield negative positive Passive Straight Leg Raise negative [...] Morgan MD, MSc Division of Adult Reconstructive Private Inquiry AgentFoam Machine Operator of Orthopaedics Department of Orthopaedics [place] [phone] [email or web address] documented in this encounter Plan of Treatment Upcoming Encounters Date Type Department Care Team (Late st Contact Info) Description 01/20/2025 9:00 AM EDT Laboratory Appointment Lab [address]L [place] [phone] 01/20/2025 9:30 AM EDT Appointment Ultrasound at [place] [phone] Ana Ho MD [facility] [place] [address] 01/20/2025 11:00 AM EDT Office Visit [place] [address] Ana Ho MD [facility] [place] [address] 01/20/2025 12:00 PM EDT Office Visit [place] [address] Candy Clifford MD [facility] DR NICHOLAS PERDOM[place] [address] Scheduled Referrals Name Type Priority Associated Diagnoses Orde r Schedule Referral to Weight & Wellness Center Outpatient Referral Routine Morbid obesity with BMI of 60.0-69.9, adult Ordered: 12/01/2021 documented as of this encounter Visit Diagnoses Diagnosis Morbid obesity with BMI of 60.0-69.9, adult Morbid obesity Primary osteoarthritis of left hip Primary localized osteoarthrosis, pelvic region and thigh documented in this encounter Care Teams Supervisor Line Department Relationship Specialty Start Date End Date Justino Lucia MD PCP - General Family Medicine 10/04/21 07/21/24 documented as of this encounter
--- OUTSIDE RECORDS SUMMARY | 2024-10-07 20:39 | XMS_ITS | Encounter Summary ---
Author Organization [facility] Address [facility] [place] [address] Care Team Providers Care Uniform Force Captain Name Role Phone Justino Lucia MD Primary Care Provider [phone] Encounter Details Date Type Department Care Team (Late st Contact Info) Description 02/28/2022 Telephone Weight and Wellness at [facility] [address] [place] [address] Claudia Marshall, OUTSOLE TACKER Social History Tobacco Use Types Packs/Day Years [...] PM EDT [facility] Logistics Support Pre-telemedicine Visit Phone Note Telma Richter 1950 [] Patient was not reached Patient was reached and the following information was reviewed/obtained per protocol: [x] Confirmed patient name and date of [x] Confirmed ZOOM downloaded and functioning [] ZOOM appointment link sent if no MyDH [x] Phone number to be reached is: [phone] REVIEW: [x] Review of patient medications completed Have you started on any NEW medications? [x] No [] Yes: [x] Confirmed preferred pharmacy: [facility] [place] Reminders Your provider might ask you what you ate the day prior to the visit Please weigh yourself before the appointment Pedi: Both parent and child need to be present for the visit documented in this encounter Plan of Treatment Upcoming Encounters Date Type Department Care Team (Late st Contact Info) Description 01/20/2025 9:00 AM EDT Laboratory Appointment Lab [address] [place] [phone] 01/20/2025 9:30 AM EDT Appointment [place] [phone] Ana Ho MD [facility] [place] [address] 01/20/2025 11:00 AM EDT Office Visit [place] [phone] Ana Ho MD [facility] [place] [address] 01/20/2025 12:00 PM EDT Office Visit [place] [phone] Candy Clifford MD [facility] DR NICHOLAS PERDOMO-[place] [address] documented as of this encounter Goals Goal Patient Goal Type Associated Problems Recent Progress Patient-Stated? Author movement Exercise On track(2021 11:16 AM EDT) No Pankaj Mcadams Note: Try gentle movement like chair yoga, t'ai chi and qigong. [facility] [employer] will send hand-outs. Use resistance bands. [facility] [employer] will request a set be mailed. Nutrition [...] on filedocumented in this encounter Care Teams Uniform Force Captain Relationship Specialty Start Date End Date Justino Lucia MD PCP - General Family Medicine 10/04/21 07/21/24 documented as of this encounter
--- OUTSIDE RECORDS SUMMARY | 2024-10-07 20:39 | XMS_ITS | Encounter Summary ---
Author Organization [facility] Address [facility] [place] [address] Care Team Providers Care Bin Tripper Operator Name Role Phone Amber Ratliff APRN Primary Care Provider Reason for Visit * Reason Comments Establish Care * Consultation (Routine) - Closed Specialty Diagnoses / Procedures Referred By Marcelo tucker Referred To Contact General Surgery Diagnoses VENTRAL HERNIA Tim Rivera MD [address] [place] [address] [facility] [place] [address] Referral ID Status Reason Start Date Expiration Date Visits Re quested Visits Authorized [id number] Closed 04/02/2016 04/02/2017 1 1 Encounter Details Date Type Department Care Team (Late st Contact Info) Description 05/30/2016 1:45 PM EDT Office Visit [place] [address] Sabas Benito MD [address] [place] [address] [place] [address] Epigastric hernia Social History Tobacco Use Types [...] this encounter Progress Notes * Guilherme Rivera, DO - 05/30/2016 1:45 PM EDT [facility] Department of Surgery Outpatient Consultation Note Reason for Consultation: Ventral Hernia Referring Provider: Tim Rivera MD [address] [place] [address] History of Present Illness: Telma Richter is [...] 9:00 AM EDT Laboratory Appointment Lab [address] [place] [address] 01/20/2025 9:30 AM EDT Appointment [place] [address] Ana Ho MD [facility] [place] [address] 01/20/2025 11:00 AM EDT Office Visit [place] [address] Ana Ho MD [facility] [place] [address] 01/20/2025 12:00 PM EDT Office Visit [place] [address] Candy Clifford MD [facility] DR [facility] [place] [address] documented as of this encounter Visit Diagnoses Diagnosis Epigastric hernia Other ventral hernia without mention of obstruction or gangrene documented in this encounter Care Teams Bin Tripper Operator Relationship Specialty Start Date End Date Amber Ratliff APRN [address] [place] [address] PCP - General Family Medicine 02/07/16 05/01/17 documented as of this encounter
--- OUTSIDE RECORDS SUMMARY | 2024-10-07 20:39 | XMS_ITS | Encounter Summary ---
Author Organization [facility] Address [facility] [place] [address] Care Team Providers Care Manager Roofing Name Role Phone Justino Lucia MD Primary Care Provider [phone] Reason for Referral * Diagnostic Test (Routine) - Closed Specialty Diagnoses / Procedures Referred By Contac t Referred To Contact Radiology Diagnoses Cirrhosis of liver without ascites, unspecified hepatic cirrhosis type Procedures CT Abdomen w Contrast CT Abdomen wwo Contrast Glenn Cardoso PA [address] [place] [address] [facility] [place] [address] Referral ID Status Reason Start Date Expiration Date V isits Requested Visits Authorized [id number] Closed Specialty Service Requested 02/02/2022 07/23/2022 1 1 Encounter Details Date Type Department Care Team (Late st Contact Info) Description 02/01/2022 Orders [place] [address] Glenn Cardoso PA [address] [place] [address] Cirrhosis of liver without ascites, [...] EDT Laboratory Appointment Lab [address] [place] [address] 01/20/2025 9:30 AM EDT Appointment Ultrasound at [address] Ana Ho MD [facility] [place] [address] 01/20/2025 11:00 AM EDT Office Visit Gastroenterology at [place] [phone] Ana Ho MD [facility] [place] [address] 01/20/2025 12:00 PM EDT Office Visit Weight Center at [place] [phone] Candy Clifford MD [facility] DR [facility]DOM[facility] [address] documented as of this encounter Goals Goal [...] for sample meal ideas in the [facility] Keep food log until you [...] who have questions please contact the health physician assistant primary care that requested your imaging first. ? Narrative [...] patients who have questions please contactthe health physician assistant primary care that requested your imaging first. Rea Hickey MD IMG CT ORDERABLES * (ABNORMAL) Prothrombin Time (05/14/2022 7:58 AM EDT) Prothrombin Time 13.2(H) 9.4 - 12.5 sec [facility] International Normalization Ratio 1.2 [facility] Comment: An INR <2.0 indicates [...] Lab Rea Hickey MD HEMATOLOGY ORDERABLE S [facility] [place] [address] * Comprehensive metabolic panel (non-fasting) (05/14/2022 7:58 AM EDT) Glucose 107 65 - 199 mg/dL [facility] Comment:Diabetes: >=200 mg/d L plus symptoms Blood Urea Nitrogen 13 8 - 18 mg/dL [facility] Creatinine 0.81 0.70 - 1.20 mg/dL [facility] Sodium 140 135 - 145 mmol/L [facility] Potassium 4.0 3.5 - 5.0 mmol/L [facility] Comment: Please note: ??Patients with WBC >100,000 may have falsely elevated Potassium levels. ??For accurate Potassium quantification in these patients send serum separator tube (gold top) for subsequent determinations. ??Contact the Clinical Chemistry Laboratory if there are any questions. Chloride 104 98 - 107 mmol/L [facility] Carbon Dioxide 27 22 - 31 mmol/L [facility] Anion Gap 9 5 - 15 mmol/L [facility] Calcium 9.4 8.5 - 10.5 mg/dL [facility] Protein, Total 6.7 6.1 - 8.0 g/dL [facility] Albumin 3.9 3.2 - 5.2 g/dL [facility] Aspartate Aminotransferase 24 0 - 30 unit/L [facility] Alanine Aminotransferase 18 0 - 30 unit/L [facility] Alkaline Phosphatase 60 35 - 105 unit/L [facility] Bilirubin, Total 1.0 0.2 - 1.3 mg/dL [facility] Est Glomerular Filtration Rate 78 >=60 mL/min/1. 73 m?? [facility] Comment: This patient's estimated GFR [...] Hickey MD CHEMISTRY ORDERABLES Performing Organization Address City/State/[facility] Co de Phone Number [facility] [place] [address] documented in this encounter Visit Diagnoses Diagnosis Cirrhosis of liver without ascites, unspecified hepatic cirrhosis type Cirrhosis of liver without ascites, unspecified hepatic cirrhosis type documented in this encounter Care Teams Manager Roofing Relationship Specialty Start Date End Date Justino Lucia MD PCP - General Family Medicine 10/04/21 07/21/24 documented as of this encounter
--- OUTSIDE RECORDS SUMMARY | 2024-10-07 20:39 | XMS_ITS | Encounter Summary ---
Author Organization [facility]ending [facility] Address [facility] [place] [address] Care Team Providers Care Manager Post Name Role Phone Justino Lucia MD Primary Care Provider [phone] Encounter Details Date Type Department Care Team (Latest Contact Info) Description 03/19/2022 3:00 PM EDT TH Visit (TeleHealth) Weight and Wellness at [address] [phone] Pankaj Mcadams Class 3 severe obesity due [...] work out for you. Be well, Pankaj Sellersey Health Radio Tower Technician documented in this encounter Progress Notes * [...] yoga, t'ai chi and qigong. Health Radio Tower Technician will send hand-outs. Use resistance bands. Health Radio Tower Technician will request a set be mailed. ??? [...] meals a day Future follow-up with health college coach will address identified areas of concern: [...] increasing mindfulness throughout the day. Your health college coach is well-equipped to guide you to find something to look forward to everyday. Eating behaviors: many people benefit from restricting the hours in which they eat. You can choose an eating window of 8-12 hours to start. Make a pact with yourself that you will not take in anything with caloric content outside this window. Your coal passer may make further recommendations documented in this encounter Plan of Treatment Upcoming Encounters Date Type Department Care Team (Late st Contact Info) Description 01/20/2025 9:00 AM EDT Laboratory Appointment Lab [address] [place] [address] 01/20/2025 9:30 AM EDT [place]oint[place] [address] Ana Ho MD [facility] [place] [address] 01/20/2025 11:00 AM EDT Office [place] [phone] Ana Ho MD [facility] [place] [address] 01/20/2025 12:00 PM EDT Office [place] [address] Candy Clifford MD [facility] DR [facility] [address] documented as of this encounter Goals Goal Patient Goal Type Associated Problems Recent Progress Patient-Stated? Author movement Exercise On track(2021 11:16 AM EDT) No Pankaj Mcadams Note: Try gentle movement like chair yoga, t'ai chi and qigong. Health Radio Tower Technician will send hand-outs. Use resistance bands. Health Radio Tower Technician will request a set be mailed. Nutrition [...] for sample meal ideas in the USPS [facility] Keep food log until you are seen by the dieititian. Record everything you eat or drink, include time eaten and any emotional changes that are significant. relaxation/sleep Lifestyle Pankaj Russ Note: Try some meditation/relaxation apps when I wake in the night and can't go back to sleep. Health Radio Tower Technician will send some to try. Tried apps but don't really like them as I like the quiet when going to sleep. [facility] 04/23 documented as of this encounter Visit Diagnoses Diagnosis Class 3 severe obesity due to excess calories with serious comorbidity and body mass index (BMI) of 60.0 to 69.9 in adult documented in this encounter Care Teams Manager Post Relationship Specialty Start Date End Date Justino Lucia MD PCP - General Family Medicine 10/04/21 07/21/24 documented as of this encounter
--- OUTSIDE RECORDS SUMMARY | 2024-10-07 20:39 | XMS_ITS | Encounter Summary ---
Author Organization [facility] [address] [place] [address] Care Team Providers Care Fur Designer Name Role Phone Justino Lucia MD Primary Care Provider [phone] Encounter Details Date Type Department Care Team (Late st Contact Info) Description 10/06/2021 Telephone Gastroenterology at [facility] [place] [address] Jennifer, December Social History Tobacco Use Types Packs/Day [...] - 10/06/2021 1:46 PM EST Telma Richter [id number] Diagnosis/Indication: screening colo 1. Have you ever [...] to patient: You must have a responsible democrat who will drive you to your procedure, stay oncampus for the entire duration of your procedure, and drive you home from your procedure? Age:71 y.o. Height 53 Weight 371 bmi 65.7 documented in this encounter Plan of Treatment Upcoming Encounters Date Type Department Care Team (Late st Contact Info) Description 01/20/2025 9:00 AM EDT Laboratory Appointment Lab [address] [phone] 01/20/2025 9:30 AM EDT Appointment Ultrasound at [address] Ana Ho MD [facility] GASTROENTEROLOGY [place] [phone] 01/20/2025 11:00 AM EDT Office Visit Gastroenterology at [place] [phone] Ana Ho MD [facility] [address] 01/20/2025 12:00 PM EDT Office Visit Weight Center at [place] [phone] Candy Clifford MD [facility] DR [facility]OL[facility] [place] [address] documented as of this encounter Visit Diagnoses Not on filedocumented in this encounter Care Teams Fur Designer Relationship Specialty Start Date End Date Justino Lucia MD PCP - General Family Medicine 10/04/21 07/21/24 documented as of this encounter
--- OUTSIDE RECORDS SUMMARY | 2024-10-07 20:39 | XMS_ITS | Encounter Summary ---
Author Organization [facility] Address [facility] [place] [address] Care Team Providers Care Marketing Programs Specialist Name Role Phone Justino Lucia MD Primary Care Provider [phone] Encounter Details Date Type Department Care Team (Latest Contact Info) Description 03/16/2022 9:30 AM EDT TH Visit (TeleHealth) Weight and Wellness at [facility] [address] [place] [address] Lacey Martino I, RD [facility] [place] [address] Class 3 severe obesity due to excess [...] was at home at the following address: [address] [place] [address] Food Trackers: yes; Pert. Meds: Ozempic Activity: PT 3 days/wk for hip movement which is helping with walking Weight Today: Vitals 03/16/2022 Resp Height (Djiboutian) 62.008 Height (Metric) 157.5 cm Weight (Djiboutian) 334 lbs 8 oz Weight (Metric) 151.728 [...] chair yoga, t'ai chi and qigong. Health Gaming Dealer will send hand-outs. Use resistance bands. Health Gaming Dealer will request a set be mailed. ??? [...] for sample meal ideas in the USPS faheem [facility] Monitor/Evaluate: Will follow up in 3 months [...] 9:00 AM EDT Laboratory Appointment Lab [address] [place] [address] 01/20/2025 9:30 AM EDT [place] [address] Ana Ho MD [facility] [place] [address] 01/20/2025 11:00 AM EDT Office [place] [phone] Ana Ho MD [facility] [place] [address] 01/20/2025 12:00 PM EDT Office Visit Weight Center at [place] [phone] Candy Clifford MD [facility] DR [facility] [place] [address] documented as of this encounter Goals Goal Patient Goal Type Associated Problems Recent Progress Patient-Stated? Author movement Exercise On track(2021 11:16 AM EDT) No Pankaj Mcadams Note: Try gentle movement like chair yoga, t'ai chi and qigong. Health Gaming Dealer will send hand-outs. Use resistance bands. Health Gaming Dealer will request a set be mailed. Nutrition [...] and can't go back to sleep. Health Gaming Dealer will send some to try. Tried apps but don't really like them as I like the quiet when going to sleep. [facility] 04/23 documented as of this encounter Visit Diagnoses Diagnosis Class 3 severe obesity due to excess calories with serious comorbidity and body mass index (BMI) of 60.0 to 69.9 in adult documented in this encounter Care Teams Marketing Programs Specialist Relationship Specialty Start Date End Date Justino Lucia MD PCP - General Family Medicine 10/04/21 07/21/24 documented as of this encounter
--- OUTSIDE RECORDS SUMMARY | 2024-10-07 20:39 | XMS_ITS | Encounter Summary ---
Author Organization [facility] [place] [address] Care Team Providers Care Hemodialysis Rn Name Role Phone Page, Aleida Lopez APRN Primary Care Provider [phone] Encounter Details Date Type Department Care Team (Latest Contact Info) Description 02/20/2018 Multidisciplinary Ca re Committee [place] [phone] Karla Flores APRN Social History Tobacco Use Types Packs/Day Years [...] + Evaluation by a member of the [facility] Bariatric Surgery Program previously: no Case presentation by: Dr Emma Luther Staff present at today's meeting: Aneta Oshea MD, Forestry Scientist, Don Laguna MD, Luz Aguiar MD, Alexandria Luther MD, Consuelo Calvin, MS RD, Karla Flores APRN, Nova Villegas, eCce Reilly MSN RN Reason for presentation: portal [...] referral by primary care physician to the [facility] Weight and Wellness Center. Telma was advised of decision via phone. documented in this encounter Plan of Treatment Upcoming Encounters Date Type Department Care Team (Late st Contact Info) Description 01/20/2025 9:00 AM EDT Laboratory Appointment Lab [address] [place] [address] 01/20/2025 9:30 AM EDT Appointment Ultrasound at [place] [phone] Ana Ho MD [facility] [place] [address] 01/20/2025 11:00 AM EDT Office Visit Gastroenterology at [place] [phone] Ana Ho MD [facility] [address] [place] [phone] 01/20/2025 12:00 PM EDT Office [place] [address] Candy Clifford MD [facility] DR NICHOLAS PERDOM[facility] [address] documented as of this encounter Visit Diagnoses Not on filedocumented in this encounter Care Teams Hemodialysis Rn Relationship Specialty Start Date End Date Page, Aleida Lopez APRN [address] [place] [address] PCP - General Family Medicine 05/02/17 10/03/21 documented as of this encounter
--- OUTSIDE RECORDS SUMMARY | 2024-10-07 20:39 | XMS_ITS | Encounter Summary ---
Author Organization [facility] [place] [address] Care Team Providers Care Dental Scheduling Coordinator Name Role Phone Page, Aleida Lopez APRN Primary Care Provider [phone] Encounter Details Date Type Department Care Team (Latest Contact Info) Description 05/01/2017 2:00 PM EDT Interpretation Only [address] [address] Jaswant Teresa Jr., MD Dyspnea, unspecified type; Pedal edema Social History [...] 9:00 AM EDT Laboratory Appointment Lab [address] [place] [phone] 01/20/2025 9:30 AM EDT [place] [address] [facility] [place] [address] 01/20/2025 11:00 AM EDT Office [place] [address] [facility] [place] [address] 01/20/2025 12:00 PM EDT Office [place] [phone] [facility] DR NICHOL[facility] [place] [address] documented as of this encounter Procedures Procedure [...] Edema documented in this encounter Care Teams Dental Scheduling Coordinator Relationship Specialty Start Date End Date Aleida Alva APRN [address] [place] [address] PCP - General Family Medicine 05/02/17 10/03/21 documented as of this encounter
--- OUTSIDE RECORDS SUMMARY | 2024-10-07 20:39 | XMS_ITS | Encounter Summary ---
[place] [address] Care Team Providers Care Restaurant And Bar Manager Name Role Phone Justino Lucia MD Primary Care Provider [phone] Reason for Referral * Consultation (Routine) - Closed Specialty Diagnoses / Procedures Referred By Contac t Referred To Contact Weight and Wellness Diagnoses Hepatic cirrhosis, unspecified hepatic cirrhosis type, unspecified whether ascites present Class 3 severe obesity due to excess calories with serious comorbidity and body mass index (BMI) of 60.0 to 69.9 in adult Glenn Cardoso PA [address] [place] [address] [facility] [address] [place] [address] Referral ID Status Reason Start Date Expiration Date V isits Requested Visits Authorized [id number] Closed Consult, Test & Treat 12/14/2021 12/14/2022 1 1 Encounter Details Date Type Department Care Team (Late st Contact Info) Description 12/14/2021 Orders [place] [phone] Glenn Cardsoo PA [address] [place] [address] Hepatic cirrhosis, unspecified hepatic cirrhosis type, [...] 01/20/2025 9:00 AM EDT Laboratory Appointment Lab [address] [phone] 01/20/2025 9:30 AM EDT Appointment Ultrasound at [address]1000 Ana Ho MD [facility] [place] [place] [address] 01/20/2025 11:00 AM EDT Office Visit Gastroenterology at [place] [phone] Ana Ho MD [facility] [place] [address] 01/20/2025 12:00 PM EDT Office [place] [address] Candy Clifford MD [facility] DR [facility] [place] [address] Scheduled Orders Name Type Priority Associated Diagnoses Orde r Schedule ENDOSCOPY CASE REQUEST: EGD, UPPER GI ENDOSCOPY, COLONOSCOPY, DIAGNOSTIC Procedures Routine Hepatic cirrhosis, unspecified hepatic cirrhosis type, unspecified whether ascites present History of colon polyps Screening for colon cancer Ordered: 12/14/2021 Scheduled Referrals Name Type Priority Associated Diagnoses [...] colon documented in this encounter Care Teams Restaurant And Bar Manager Relationship Specialty Start Date End Date Justino Lucia MD PCP - General Family Medicine 10/04/21 07/21/24 documented as of this encounter
--- OUTSIDE RECORDS SUMMARY | 2024-10-07 20:39 | XMS_ITS | Encounter Summary ---
Author Organization [facility] Address [facility] [place] [address] Care Team Providers Care Pest Control Worker Name Role Phone Justino Lucia MD Primary Care Provider [phone] Encounter Details Date Type Department Care Team (Late st Contact Info) Description 04/17/2022 Telephone Weight and Wellness at [facility] [address] [place] [address] Claudia Marshall, BLOOD BANK LABORATORY TECHNICIAN Social History Tobacco Use Types Packs/Day Years [...] PM EDT [facility] Winding Inspector Pre-telemedicine Visit Phone Note Telma Richter 1950 [] Patient was not reached Patient was reached and the following information was reviewed/obtained per protocol: [x] Confirmed patient name and date of [x] Confirmed ZOOM downloaded and functioning [] ZOOM appointment link sent if no MyDH [x] Phone number to be reached is: [phone] REVIEW: [x] Review of patient medications completed Have you started on any NEW medications? [x] No [] Yes: [x] Confirmed preferred pharmacy: [facility] [place] Reminders Your provider might ask you what you ate the day prior to the visit Please weigh yourself before the appointment Pedi: Both parent and child need to be present for the visit documented in this encounter Plan of Treatment Upcoming Encounters Date Type Department Care Team (Late st Contact Info) Description 01/20/2025 9:00 AM EDT Laboratory Appointment Lab [address] [place] [phone] 01/20/2025 9:30 AM EDT Appointment [place] [address] Ana Ho MD [facility] [place] [address] 01/20/2025 11:00 AM EDT Office [place] [phone] Ana Ho MD [facility] [place] [address] 01/20/2025 12:00 PM EDT Office [place] [phone] Candy Clifford MD [facility] DR [facility]ICHOL[facility] [address] documented as of this encounter Goals Goal Patient Goal Type Associated Problems Recent Progress Patient-Stated? Author movement Exercise On track(2021 11:16 AM EDT) No Pankaj Mcadams Note: Try gentle movement like chair yoga, t'ai chi and qigong. Health Computer Game Designer will send hand-outs. Use resistance bands. Health Computer Game Designer will request a set be mailed. Movement [...] can't go back to sleep. Health Computer Game Designer will send some to try. Tried apps but don't really like them as I like the quiet when going to sleep. [facility] 04/23 documented as of this encounter Visit Diagnoses Not on filedocumented in this encounter Care Teams Pest Control Worker Relationship Specialty Start Date End Date Justino Lucia MD PCP - General Family Medicine 10/04/21 07/21/24 documented as of this encounter
--- OUTSIDE RECORDS SUMMARY | 2024-10-07 20:39 | XMS_ITS | Encounter Summary ---
Author Organization [facility] [place] [address] Care Team Providers Care Gas Station Manager Name Role Phone Justino Lucia MD Primary Care Provider Reason for Visit * Reason Onset Date Comments Medication Refill 03/30/2022 Encounter Details Date Type Department Care Team (Late st Contact Info) Description 03/30/2022 Refill Weight and Wellness at [facility] [address] [place] [address] Claudia Marshall, [facility] Social History Tobacco Use Types Packs/Day [...] 9:00 AM EDT Laboratory Appointment Lab [address] [place] [phone] 01/20/2025 9:30 AM EDT [place] [phone] Ana Ho MD [facility] [place] [address] 01/20/2025 11:00 AM EDT Office [place] [address] Ana Ho MD [facility] [place] [address] 01/20/2025 12:00 PM EDT Office [place] [address] Candy Clifford MD [facility] DR NICHOLAS PER[place] [address] documented as of this encounter Goals Goal Patient Goal Type Associated Problems Recent Progress Patient-Stated? Author movement Exercise On track(2021 11:16 AM EDT) No Pankaj Mcadams Note: Try gentle movement like chair yoga, t'ai chi and qigong. Health Sand Screener Operator will send hand-outs. Use resistance bands. Health Sand Screener Operator will request a set be mailed. Nutrition [...] and can't go back to sleep. Health Sand Screener Operator will send some to try. Tried apps but don't really like them as I like the quiet when going to sleep. [facility] 04/23 documented as of this encounter Visit Diagnoses Not on filedocumented in this encounter Care Teams Gas Station Manager Relationship Specialty Start Date End Date Justino Lucia MD PCP - General Family Medicine 10/04/21 07/21/24 documented as of this encounter
--- OUTSIDE RECORDS SUMMARY | 2024-10-07 20:39 | XMS_ITS | Encounter Summary ---
Author Organization [facility] Address [facility] [place] [address] Care Team Providers Care Diesel Maintenance Electrician Name Role Phone Justino Lucia MD Primary Care Provider [phone] Reason for Visit * Consultation (Routine) - Closed Specialty Diagnoses / Procedures Referred By Contac t Referred To Contact Weight and Wellness Diagnoses Hepatic cirrhosis, unspecified hepatic cirrhosis type, unspecified whether ascites present Class 3 severe obesity due to excess calories with serious comorbidity and body mass index (BMI) of 60.0 to 69.9 in adult Glenn Cardoso PA [address] [place] [address] [place] [address] [facility] [address] [place] [address] Referral ID Status Reason Start Date Expiration Date V isits Requested Visits Authorized [id number] Closed Consult, Test & Treat 12/14/2021 12/14/2022 1 1 Encounter Details Date Type Department Care Team (Late st Contact Info) Description 01/18/2022 1:00 PM EDT TH Visit (TeleHealth) Weight and Wellness at [facility] [address] [place] [address] Candy Clifford MD [facility] DR NICHOLAS [place] [address] Class 3 severe obesity with [...] made referrals for the following: [x]Nutrition [x]Health assistant men's soccer coach OUR PAPER INSERTER WILL CALL YOU TO SCHEDULE THESE VISITS. If you do not hear from us within a week, please call us at: [phone]. Below is some additional information/resources on this [...] on all of these pillars, and each steamboat pilot, will help you set achievable, actionable goals, [...] the disease of obesity) Appetite control The pantry attendant, The GoGetter and The Sleepy Executive 720p - Nita video Sleep apnea and weight https://www.sleepfoundation.org/sleep-apnea/ychzfv-tqvg-wnk-sleep-apnea Insulin resistance and weight https://obesitymedicine.org/qlbkcol-bap-rmqcjyj-resistance/ https://www.secondnature.io/us/guides/diabetes/ewmtylw-uoyidrhxpz-sljzax-gain Dr. Haroon Frank: Fasting as a Therapeutic Option for Weight Loss - Soysuper Https://www.IRL Gamingube.com/watch?v=zq8sqqws7wJ https://www.IRL Gamingube.com/watch?v=28Req7CnIWE The Mediterranean Diet https://documistic.org/ https://www.health.[place].edu/blog/o-bpgqydzns-nlzzp-uf-oiu-njnqggmrtlppq-diet- 8568966889353 An important thing to remember as you [...] a general recommendation for all patients. Your programming coordinator and provider will help make more specific [...] mindfulness throughout the day. Your health assistant men's soccer coach is well-equipped to guide you to find something to look forward to everyday. Eating behaviors: many people benefit from restricting the hours in which they eat. You can choose an eating window of 8-12 hours to start. Make a pact with yourself that you will not take in anything with caloric content outside this window. Your programming coordinator may make further recommendations documented in this [...] this video visit, pt is located at: [facility] Patient Name: Telma Richter Date of : 1950 Age: 71 y.o. Referring provider: Glenn Cardoso Dear Justino Lucia MD, Glenn Cardoso Thank you for referring Telma Richter to the [facility]. Telma Richter presented to the [facility] for a consultative visit regarding obesity management. [...] female with uncontrolled obesity who presented to [facility] today for medical evaluation with associated co-morbidities [...] FLD, L hip is problematic Weight History: [facility] Weight History 01/15/2022 What is the most [...] Watchers, Marge Juni, TOPS, or Overeaters Anonymous) Telma Richter has had gradual weight gain due to: Unclear - sits at home; notes gaining weight when she moved here from [place] to take care of her dad about [...] from that/those programs? A little success with Family Hx of Obesity? P. Aunt really really heavy, Daughter Hx medications to treat obesity: NO Hx metabolic surgery: NO (too high risk, HCV cirrhosis, 2018) Initial weight 01/18/22: 335 lbs Initial Body mass index is 61.27 kg/m??. Goal weight: Under 200 lbs (180 lbs) 10% loss: 34 lbs Other goals: Avoid L hip surgery [facility] Importance 01/15/2022 How important is it to [...] /heart murmur, Fatty liver, Osteoarthritis Sleep: Circadian: []date night caregiver work []irregular sleep timings [x]Normal day/night schedule Frequency of awakenings at night: Wakes frequently for BR (lasix, spironolactone) Dx/Treated for SHANIQUA? NO [place] Sleep Apnea 01/15/2022 Please choose the correct [...] Do you have high blood pressure? Yes [place] Category I 1 (Negative) [place] Category I Result 0 (Negative) [place] Category 2 0 (Negative) [place] Category II Result 0 (Negative) [place] Category 3 1 (Positive) [place] Sleep Apnea Result 1 (Low Risk) Daily [...] all the time) Satiety/Fullness: One plate Cravings? Mongolian food Eating out of: [x]Hunger []Habit []It's time. [x]Boredom - yes in the past [x]Emotions-used to inthe past Eating patterns: [] Mindless eating [] binge eating [] Grazing [] skips meals [x] Night eating-NO Movement: [facility]: PAVS 01/15/2022 How many days during the [...] of anything. 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 Nearly every day Over the LAST 2 WEEKS, how often have you been bothered by feeling down, depressed, or hopeless? Not at all PHQ-2 Score 3 (Full PHQ-9 indicated) CGAD2 01/15/2022 Over the LAST 2 WEEKS, how [...] found for: FERRITIN No results found for: BNOVPJMX45 No results found for: 25OHVITD Liver Fibrosis [...] eye check ONGOING INTERVENTIONS Referrals: Dietitian, Health Adding Machine Servicer For specific behavioral interventions, see goals Nutrition: [...] spent a total of 60 minutes in bkpx-xl-fydt discussion/counseling regarding the diagnosis of obesity, interventions [...] changes that are significant. Care pathway: Pathway: [facility] PATHWAY - ADULT 01/18/2022 Obesity Medicine Activate I spoke with Telma about opportunities to participate in research and to be contacted by our research learning support assistant. They indicated that they are: [] INTERESTED [] NOT INTERESTED // [x] NOT ADDRESSED [facility] Initial Responses 01/15/2022 URICA - Readiness Score 12 (Preparation State) WEL-SF Total Scores 55 PHQ-2 SubScore 3 (Full PHQ-9 indicated) GAD2 Subscore 2 (Brief screen negative) PROMIS 10 Physical Scores 34.9 PROMIS 10 Mental Scores 43.5 Total REAP-S Scores 28 TFEQ - Uncontrolled Eating (UE) 29.63 TFEQ-Cognitive Restraint (CR) 33.33 TFEQ-Emotional Eating 16.67 Food Insecurity Score 4 [place] Category I Result 0 (Negative) [place] Category II Result 0 (Negative) [place] Category III 1 (Positive) [place] Sleep Apnea Total 1 (Low Risk) Schooling [...] 9:00 AM EDT Laboratory Appointment Lab [address] [place] [address] 01/20/2025 9:30 AM EDT [place]ointment [place] [address] Ana Ho MD [facility] [place] [place] [address] 01/20/2025 11:00 AM EDT Office Visit [place] [address] Ana Ho MD [facility] [place] [address] 01/20/2025 12:00 PM EDT Office Visit Weight Center at [facility] [place] [phone] Candy Clifford MD [facility] DR NICHOLAS [place] [address] documented as of this encounter Goals Goal [...] 25 OH 43 21 - 100 ng/mL [facility] Vit D Interp Sufficient [facility] Blood 01/01/2023 8:48 AM EDT 01/01/2023 9:03 AM EDT Narrative Resulting Agency Comment Spec In Lab Candy Clifford MD CHEMISTRY ZACK NELSON [facility] [place] [address] * Vitamin B12 (01/01/2023 8:48 AM EDT) Vitamin B12 553 232 - 1,245 pg/mL [facility] Blood 01/01/2023 8:48 AM EDT 01/01/2023 9:03 AM EDT Narrative Resulting Agency Comment Spec In Lab Candy Clifford MD CHEMISTRY ZACK NELSON Performing Organization Address City/[facility] Co de Phone Number [facility] [place] [address] * TSH (01/01/2023 8:48 AM EDT) Thyroid Stimulating Hormone 1.28 0.27 - 4.20 mcIU/mL [facility] Comment: Reference Interval (mcIU/mL): Females: ??First Trimester: 0.23-3.88 ??Second Trimester: 0.22-3.90 ??Third Trimester: 0.44-4.66 Blood 01/01/2023 8:48 AM EDT 01/01/2023 9:03 AM EDT Narrative Resulting Agency Comment Spec In Lab Candy Clifford MD CHEMISTRY ORDRicarda NESLON Performing Organization Address City/[facility]/ZIP Co de Phone Number [facility] [place] [address] * Lipid Panel (Reflex Direct LDL) (01/01/2023 8:48 AM EDT) Cholesterol, Total 118 mg/dL [facility] Comment: Lower Risk: <200 mg/dL Average Risk: 200-239 mg/dL Higher Risk: >oq=591 mg/dL Triglyceride 75 mg/dL [facility] Comment: Average Risk/Lower Risk: <150 mg/dL Borderline High Risk: 150-199 mg/dL High Risk: 200-499 mg/dL Very High Risk: >qk=471 mg/dL HDL Cholesterol 45 mg/dL [facility] Comment: Males: ?? Higher Risk: <40 mg/dL Females: ?? Higher Risk: <50 mg/dL LDL Cholesterol 58 mg/dL [facility] Comment: Lowest Risk: <100 mg/dL Lower Risk: 100-129 mg/dL Borderline High Risk: 130-159 mg/dL High Risk: 160-189 mg/dL Very High Risk: >qb=161 mg/dL Cholesterol/HDL Ratio 2.[address] [facility] Lipid Interpretation See Note [facility] Comment: Lipid management should be guided by a patient? s ASCVD risk, goals and preferences. ACC/AHA Guidelines recommend high intensity statin if clinical ASCVD or LDL greater than or equal to 190 mg/dL. http://Bitybean llc/DTP-BLN-Wkgoyffyl Adults aged 40-75 with LDL 70-189 mg/dL should have their 10 year ASCVD risk estimated with the ACC/AHA ASCVD risk estimator paperboard boxes http://tools.acc.org/TTBKA-Qgjd-Eojxscyhh/ Statin should be discussed if risk greater [...] Lab Candy Clifford MD CHEMISTRY ZACK NELSON [facility] [place] [address] * (ABNORMAL) Insulin, total (01/01/2023 8:48 AM EDT) Insulin 25.2(H) 2.6 - 24.9 mcunit/mL [facility] Comment:Reference intervals derived from fasting individuals Blood 01/01/2023 8:48 AM EDT 01/01/2023 9:03 AM EDT Narrative Resulting Agency Comment Spec In Lab Candy Clifford MD CHEMISTRY ZACK NELSON [facility] [place] [address] * Hemoglobin A1c (01/01/2023 8:48 AM EDT) Hemoglobin A1c 4.8 4.3 - 5.6 % [facility] Comment: Reference Range: 4.3 - 5.6% [...] Mellitus, Diabetes Care 2013; 36: Suppl. 1, S67-74 Estimated Average Glucose See note mg/dL [facility] Comment: Estimated Average Glucose not appropriate [...] resources are available on the ADA website. Gyu AYON, Derrick J, Trung R, et al. ??Translating the A1C assay into estimated average glucose values. ??Diabetes Care 2008:31(8):5957-0557. Blood 01/01/2023 8:48 AM EDT 01/01/2023 9:03 AM EDT Narrative Resulting Agency Comment Spec In Lab Cadny Clifford MD CHEMISTRY ORDNerdiesOFELIA Performing Organization Address City/[facility]/ZIP Co de Phone Number [facility] [place] [address] * Ferritin (01/01/2023 8:48 AM EDT) [facility] Ferritin 56 30 - 400 ng/mL [facility] Comment: Pediatric reference ranges not verified at [facility], interpret with caution. Reference ranges for females greater than 50 years of age approach values for men, i.e., 30-400 ng/mL. Blood 01/01/2023 8:48 AM EDT 01/01/2023 9:03 AM EDT Narrative Resulting Agency Comment Spec In Lab Candy Clifford MD CHEMISTRY ORDRicarda NumedeonOFELIA Performing Organization Address City/[facility]/ZIP Co de Phone Number [facility] [place] [address] documented in this encounter Visit Diagnoses Diagnosis Class 3 severe obesity with serious comorbidity and body mass index (BMI) of 60.0 to 69.9 in adult, unspecified obesity type Hyperlipidemia, unspecified hyperlipidemia type Prediabetes Other abnormal glucose Hypertension, unspecified type documented in this encounter Care Teams Diesel Maintenance Electrician Relationship Specialty Start Date End Date Justino Lucia MD PCP - General Family Medicine 10/04/21 07/21/24 documented as of this encounter
--- OUTSIDE RECORDS SUMMARY | 2024-10-07 20:39 | XMS_ITS | Encounter Summary ---
Author Organization [facility] Address [facility] [place] [address] Care Team Providers Care Control And Recovery Combat Rescue Name Role Phone Aleida Alva APRN Primary Care Provider [phone] Reason for Visit * Reason Comments Establish Care Has had mid chest pa in & across chest; has a hiatal hernia & unsure if tht is causing the pain; saw Dr. Ramon on Sat for ? vaginal or recta bleeding - he plans on do an upper endoscopyl Shortness of Breath feels most is due to her weight; has a lot of swelling in her legs * Consultation (Routine) - Closed Specialty Diagnoses / Procedures Referred By Marcelo tucker Referred To Contact Cardiology Diagnoses coronary artery disease chest tightness frequent premature ventricular beats Aleida Alva APRN [address] [place] [address] Jaswant Teresa Jr., MD [address] [place] [id number] Referral ID Status Reason Start Date Expiration Date V isits Requested Visits Authorized [id number] Closed Consult, Test & Treat Connection Center 05/09/2017 05/09/2018 1 1 Encounter Details Date Type Department Care Team (Late st Contact Info) Description 07/19/2017 1:20 PM EST Office Visit Cardiology at [address] [address] Jaswant Teresa Jr., MD Atypical angina; Hypertension, unspecified type; Edema of [...] 9:00 AM EDT Laboratory Appointment Lab [address] [place] [address] 01/20/2025 9:30 AM EDT [place] [address] Ana Ho MD [facility] [place] [address] 01/20/2025 11:00 AM EDT Office [place] [address] Ana Ho MD [facility] [place] [address] 01/20/2025 12:00 PM EDT Office [place] [address] Candy Clifford MD [facility] DR NICHOLAS [place] [address] documented as of this encounter Procedures Procedure [...] diseases documented in this encounter Care Teams Control And Recovery Combat Rescue Relationship Specialty Start Date End Date Nida, Aleida Lopez APRN [address] [place] [address] PCP - General Family Medicine 05/02/17 10/03/21 documented as of this encounter
--- OUTSIDE RECORDS SUMMARY | 2024-10-07 20:39 | XMS_ITS | Encounter Summary ---
[place] [address] Care Team Providers Care Emergency Department Coordinator Name Role Phone Justino Lucia MD Primary Care Provider [phone] Reason for Visit * Reason Onset Date Comments Appointment 04/23/2022 Encounter Details Date Type Department Care Team (Late Contact Info) Description 04/23/2022 Telephone Weight and Wellness at [facility] [address] [place] [address] Sade Aponte V Appointment Social History Tobacco [...] 9:00 AM EDT Laboratory Appointment Lab [address] [place] [address] 01/20/2025 9:30 AM EDT Appointment Ultrasound at [place] [phone] Ana Ho MD [facility] [place] [address] 01/20/2025 11:00 AM EDT Office [place] [address] Ana Ho MD [facility] [place] [address] 01/20/2025 12:00 PM EDT Office Visit Weight Center at [place] [phone] Candy Clifford MD [facility] DR NICHOLAS PERDOM[place] [address] documented as of this encounter Goals Goal Patient Goal Type Associated Problems Recent Progress Patient-Stated? Author movement Exercise On track(2021 11:16 AM EDT) No Pankaj Mcadams Note: Try gentle movement like chair yoga, t'ai chi and qigong. Health Slag Dumper will send hand-outs. Use resistance bands. Health Slag Dumper will request a set be mailed. Movement [...] and can't go back to sleep. Health Slag Dumper will send some to try. Tried apps but don't really like them as I like the quiet when going to sleep. [facility] 04/23 documented as of this encounter Visit Diagnoses Not on filedocumented in this encounter Care Teams Emergency Department Coordinator Relationship Specialty Start Date End Date Justino Lucia MD PCP - General Family Medicine 10/04/21 07/21/24 documented as of this encounter
--- OUTSIDE RECORDS SUMMARY | 2024-10-07 20:39 | XMS_ITS | Encounter Summary ---
Author Organization [facility] [place] [address] Care Team Providers Care Python Engineer Name Role Phone Justino Lucia MD Primary Care Provider [phone] Encounter Details Date Type Department Care Team (Late st Contact Info) Description 10/31/2021 Ancillary Procedure Radiology Library at [facility] [place] [address] Justino Lucia MD [address] [place] [address] [place] [address] Social History Tobacco Use Types Packs/Day Years [...] 9:00 AM EDT Laboratory Appointment Lab [address] [place] [address] 01/20/2025 9:30 AM EDT Appointment [place] [address] Ana Ho MD [facility] GASTROENTEROLOGY [place] [address] 01/20/2025 11:00 AM EDT Office Visit [place] [address] Ana Ho MD [facility] [place] [address] 01/20/2025 12:00 PM EDT Office Visit [place] [phone] Candy Clifford MD [facility] DR NICHOLAS PERDOM[place] [address] documented as of this encounter Procedures Procedure Name Priority Date/Time Associated Diagnosis Comments FILM LIBRARY STORAGE ONLY DX HIP Routine 10/31/2021 12:00 AM EST documented in this encounter Results * Film Library- Storage Only DX Hip (10/31/2021 12:00 AM EST) Narrative [facility] - 11/20/2021 4:52 PM EDT This exam is auto-finalizing. It's purpose is for storage only. Justino Lucia MD IMG FILM LIBRARY ORD ERABLES [place], [place] documented in this encounter Visit Diagnoses Not on filedocumented in this encounter Care Teams Python Engineer Relationship Specialty Start Date End Date Justino Lucia MD PCP - General Family Medicine 10/04/21 07/21/24 documented as of this encounter
--- OUTSIDE RECORDS SUMMARY | 2024-10-07 20:39 | XMS_ITS | Encounter Summary ---
Author Organization [facility] [place] [address] Care Team Providers Care Tank Builder Supervisor Name Role Phone Justino Lucia MD Primary Care Provider [phone] Reason for Visit * Reason Comments Medication Refill Encounter Details Date Type Department Care Team (Late st Contact Info) Description 03/29/2022 Refill Weight and Wellness at [facility] [address] [place] [address] Candy Clifford MD [facility] DR NICHOLAS PERDOM[place] [address] Social History Tobacco Use Types Packs/Day Years [...] 9:00 AM EDT Laboratory Appointment Lab [address] [place] [phone] 01/20/2025 9:30 AM EDT Appointment [place] [phone] Ana Ho MD [facility] [place] [address] 01/20/2025 11:00 AM EDT Office Visit [place] [address] Ana Ho MD [facility] [place] [address] 01/20/2025 12:00 PM EDT Office [place] [address] Candy Clifford MD [facility] DR NICHOLAS PERDOM[place] [address] documented as of this encounter Goals Goal Patient Goal Type Associated Problems Recent Progress Patient-Stated? Author movement Exercise On track(2021 11:16 AM EDT) No Pankaj Mcadams Note: Try gentle movement like chair yoga, t'ai chi and qigong. Health Tire Shop Mechanic will send hand-outs. Use resistance bands. Health Tire Shop Mechanic will request a set be mailed. Nutrition Lifestyle No Candy Clifford MD Note: Nutrition Goals updated today: 12/11/22 TF 1. Focus on reaching adequate protein intake - aim for 60-80 grams (handout attached in after visit summary) 2. Consider the 3 eating events per day to be an opportunity to start with protein (cottage cheese, south sudanese yogurt, protein smoothies, chicken or chicken [...] and can't go back to sleep. Health Tire Shop Mechanic will send some to try. Tried apps but don't really like them as I like the quiet when going to sleep. [facility] 04/23 documented as of this encounter Visit Diagnoses Not on filedocumented in this encounter Care Teams Tank Builder Supervisor Relationship Specialty Start Date End Date Justino Lucia MD PCP - General Family Medicine 10/04/21 07/21/24 documented as of this encounter
--- OUTSIDE RECORDS SUMMARY | 2024-10-07 20:39 | XMS_ITS | Encounter Summary ---
Author Organization [facility] [place] [address] Care Team Providers Care Customer Loyalty Representative Name Role Phone Justino Lucia MD Primary Care Provider [phone] Encounter Details Date Type Department Care Team (Late st Contact Info) Description 03/12/2022 [place] [phone] Amaya Pak Social History Tobacco Use Types [...] 9:00 AM EDT Laboratory Appointment Lab [address] [place] [phone] 01/20/2025 9:30 AM EDT Appointment Ultrasound at [place] [phone] Ana Ho MD [facility] [place] [address] 01/20/2025 11:00 AM EDT Office Visit Gastroenterology at [place] [phone] Ana Ho MD [facility] [address] 01/20/2025 12:00 PM EDT Office [place] [phone] Candy Clifford MD [facility] DR [facility] [place] [address] documented as of this encounter Goals Goal Patient Goal Type Associated Problems Recent Progress Patient-Stated? Author movement Exercise On track(2021 11:16 AM EDT) No Pankaj Mcadams Note: Try gentle movement like chair yoga, t'ai chi and qigong. Health Lay Out Inspector will send hand-outs. Use resistance bands. Health Lay Out Inspector will request a set be mailed. Nutrition [...] filedocumented in this encounter Care Teams Customer Loyalty Representative Relationship Specialty Start Date End Date Justino Lucia MD PCP - General Family Medicine 10/04/21 07/21/24 documented as of this encounter
--- OUTSIDE RECORDS SUMMARY | 2024-10-07 20:39 | XMS_ITS | Encounter Summary ---
Author Organization [facility] Address [facility] [place] [address] Care Team Providers Care Building Guard Deputy Sheriff Name Role Phone Aleida Alva APRN Primary Care Provider [phone] Reason for Visit * Reason Comments Skin Lesion * Consultation (Routine) - Specialty Diagnoses / Procedures Referred By Marcelo tucker Referred To Contact Dermatology Diagnoses Bullous pemphigoid Disorder of the skin and subcutaneous tissue, unspecified Bullous Pemphigoid / Skin Lesion Procedures Bullous Pemphigoid / Skin Lesion Aleida Alva APRN [address] [place] [address] [facility] Dermatology [address] [place] [address] Referral ID Status Reason Start Date Expiration Date V isits Requested Visits Authorized [id number] 04/30/2017 04/30/2018 1 1 Encounter Details Date Type Department Care Team (Late st Contact Info) Description 06/06/2017 1:40 PM EDT Office Visit Dermatology at [facility] [address] [place] [address] Nati Caro MD [facility] [address] [facility] [place] [address] Post-inflammatory hyperpigmentation; Venous stasis; Dermatofibroma [...] by Nati Caro MD Resident in Dermatology [facility] Patient seen and evaluated with staff assembly member: Tg Parsons MD Section of Dermatology [facility] * Chele Parsons MD - 06/06/2017 1:40 [...] 01/20/2025 9:00 AM EDT Laboratory Appointment Lab [address] [place] [phone] 01/20/2025 9:30 AM EDT [place]oint[place] [address] Ana Ho MD [facility] [place] [address] 01/20/2025 11:00 AM EDT Office [place] [phone] Ana Ho MD [facility] [place] [address] 01/20/2025 12:00 PM EDT Office [place] [address] Candy Clifford MD [facility] DR [facility] [address] documented as of this encounter Visit Diagnoses Diagnosis Post-inflammatory hyperpigmentation Dyschromia, unspecified Venous stasis Unspecified venous (peripheral) insufficiency Dermatofibroma Benign neoplasm of skin, site unspecified documented in this encounter Care Teams Building Guard Deputy Sheriff Relationship Specialty Start Date End Date Aleida Alva APRN [address] [place] [address] PCP - General Family Medicine 05/02/17 10/03/21 documented as of this encounter
--- OUTSIDE RECORDS SUMMARY | 2024-10-07 20:39 | XMS_ITS | Encounter Summary ---
Author Organization [facility] [place] [address] Care Team Providers Care Pharmaceutical Specialty Representative Name Role Phone Justino Lucia MD Primary Care Provider [phone] Encounter Details Date Type Department Care Team (Late st Contact Info) Description 04/24/2022 Telephone [place] [phone] JenniferDecember Social History Tobacco Use Types Packs/Day Years [...] encounter Miscellaneous Notes * Telephone Encounter - JenniferDecember - 04/24/2022 1:54 PM EDT Telma Richter [id number] Diagnosis/Indication: 1) cirrhosis with h/o gastric varices [...] & Colonoscopy before? Yes: Date 4 years Brny If yes, did you have any problems [...] No 18. You must have a responsible alliance party who will drive you to your procedure, stay on campus for the entire duration of your procedure, and drive you home from your procedure. Who will likely be your personal driver for the procedure? Height 52 Weight 328 bmi 60.0 documented in this encounter Plan of Treatment Upcoming Encounters Date Type Department Care Team (Late st Contact Info) Description 01/20/2025 9:00 AM EDT Laboratory Appointment Lab [address] [phone] 01/20/2025 9:30 AM EDT [place] [phone] Ana Ho MD [facility] [place] [address] 01/20/2025 11:00 AM EDT Office [place] [phone] Ana Ho MD [facility] [place] [address] 01/20/2025 12:00 PM EDT Office [place] [phone] Candy Clifford MD [facility] DR [facility] [address] documented as of this encounter Goals Goal Patient Goal Type Associated Problems Recent Progress Patient-Stated? Author movement Exercise On track(2021 11:16 AM EDT) No Pankaj Mcadams Note: Try gentle movement like chair yoga, t'ai chi and qigong. Health Handwriting Expert will send hand-outs. Use resistance bands. Health Handwriting Expert will request a set be mailed. Movement [...] opportunity to start with protein (cottage cheese, haitian yogurt, protein smoothies, chicken or chicken salad [...] and can't go back to sleep. Health Handwriting Expert will send some to try. Tried apps but don't really like them as I like the quiet when going to sleep. [facility] 04/23 documented as of this encounter Visit Diagnoses Not on filedocumented in this encounter Care Teams Pharmaceutical Specialty Representative Relationship Specialty Start Date End Date Justino Lucia MD PCP - General Family Medicine 10/04/21 07/21/24 documented as of this encounter
--- OUTSIDE RECORDS SUMMARY | 2024-10-07 20:39 | XMS_ITS | Encounter Summary ---
Author Organization [facility] [place] [address] Care Team Providers Care Carry Out Clerk And Shelf Stocker Name Role Phone Justino Lucia MD Primary Care Provider [phone] Encounter Details Date Type Department Care Team (Late st Contact Info) Description 05/09/2022 12:00 PM EDT Notes Only Weight and Wellness at [facility] [address] [place] [phone] Arrived Social History Tobacco Use Types Packs/Day [...] 9:00 AM EDT Laboratory Appointment Lab [address] [place] [phone] 01/20/2025 9:30 AM EDT [place] [phone] Ana Ho MD [facility] [place] [address] 01/20/2025 11:00 AM EDT Office [place] [phone] Ana Ho MD [facility] [place] [address] 01/20/2025 12:00 PM EDT Office Visit Weight Center at [facility] [place] [address] Candy Clifford MD [facility] DR N[facility] PERDOM[place] [address] documented as of this encounter Goals Goal Patient Goal Type Associated Problems Recent Progress Patient-Stated? Author movement Exercise On track(2021 11:16 AM EDT) No Pankaj Mcadams Note: Try gentle movement like chair yoga, t'ai chi and qigong. Health Bunker Worker will send hand-outs. Use resistance bands. Health Bunker Worker will request a set be mailed. [...] and can't go back to sleep. Health Bunker Worker will send some to try. Tried apps but don't really like them as I like the quiet when going to sleep. [facility] 04/23 documented as of this encounter Visit Diagnoses Not on filedocumented in this encounter Care Teams Carry Out Clerk And Shelf Stocker Relationship Specialty Start Date End Date Justino Lucia MD PCP - General Family Medicine 10/04/21 07/21/24 documented as of this encounter
--- OUTSIDE RECORDS SUMMARY | 2024-10-07 20:39 | XMS_ITS | Encounter Summary ---
Author Organization [facility] Address [facility] [place] [address] Care Team Providers Care Bunker Worker Name Role Phone Justino Lucia MD Primary Care Provider [phone] Encounter Details Date Type Department Care Team (Late st Contact Info) Description 03/01/2022 12:00 PM EDT TH Visit (TeleHealth) Weight and Wellness at [facility] [address] [place] [phone] Candy Clifford MD [facility] DR [facility] [address] Class 3 severe obesity due to excess [...] the same way that they help diabetics. https://www.diabeteseducator.org/practice/practice-tools/czuqphkp-kjmngqzroj-lhv ls/rca-4-ubblejjvy https://www.diabeteseducator.org/docs/default-source/practice/educator-tools/glp -1-medications/understanding_glp_final.pdf?sfvrsn=2 The following informational sheet will provide instruction for how to store and inject the injectable forms of incretins. https://www.diabeteseducator.org/practice/practice-tools/blliknyw-doneoecsov-toh ls/ida-0-tmqoeiciv documented in this encounter Progress Notes * Candy Clifford MD - 03/01/2022 12:00 PM EDTSummary: 2nd THV with [facility] Patient Name: [...] deficiency. GERD. OA. This is Visit #2 [facility] visit for this 71 y.o. patient. Weight gain due to: Unclear - sits at home; notes gaining weight when she moved here from [place] to take care of her dad about 10 years ago. Multiple deaths in the family in the same time frame. Initial weight 01/18/22: 335 lbs 03/01/2022, 335 lbs (no change) [facility] Team: Lacey Martino RD and Pankaj Mcadams, Health Mr Teacher HPI Did not tolerate Metformin XR 500 mg x 2 pills, terrible stomach cramps so stopped. Needs a CT per GI/liver. Started PT at [facility] - 2x a week Limited snacking, just [...] Pathways, Medication options with r/b, specifically GLP-1 [facility] - ADULT 01/18/2022 Obesity Medicine Activate Goals ??? movement Try gentle movement like chair yoga, t'ai chi and qigong. Health Mr Teacher will send hand-outs. Use resistance bands. Health Mr Teacher will request a set be mailed. [...] for: GLUCFASTING Lab Results Component Value Date [id number] 1,091 (H) 01/25/2022 25-OH Vit D Total [...] deficiency. GERD. OA. Referrals pending: Dietitian, Health Mr Teacher AOM: Cannot tolerate metformin, will try for [...] 04/12/2022) for In person or Zoom, With me, HLP. 3 min chart review 30 min [id number] Visit time 5 min Documentation time I [...] 9:00 AM EDT Laboratory Appointment Lab [address] [place] [phone] 01/20/2025 9:30 AM EDT Appointment Ultrasound at [place] [phone] Ana Ho MD [facility] [place] [address] 01/20/2025 11:00 AM EDT Office [place] [phone] Ana Ho MD [facility] [place] [address] 01/20/2025 12:00 PM EDT Office [place] [phone] Candy Clifford MD [facility] DR [facility] [address] documented as of this encounter Goals Goal Patient Goal Type Associated Problems Recent Progress Patient-Stated? Author movement Exercise On track(2021 11:16 AM EDT) Pankaj Russ Note: Try gentle movement like chair yoga, t'ai chi and qigong. Health Mr Teacher will send hand-outs. Use resistance bands. Health Mr Teacher will request a set be mailed. Nutrition [...] sample meal ideas in the [employer] [facility] Keep food log until you [...] X documented in this encounter Care Teams Bunker Worker Relationship Specialty Start Date End Date Justino Lucia MD PCP - General Family Medicine 10/04/21 07/21/24 documented as of this encounter
--- OUTSIDE RECORDS SUMMARY | 2024-10-07 20:40 | XMS_ITS | Encounter Summary ---
Author Organization [facility] Address [facility] [place] [address] Care Team Providers Care Dictaphone Mechanic Name Role Phone GaudencioMark lawrenceilene Campo APRN Primary Care Provider Reason for Visit * Auth/Cert Specialty Diagnoses / Procedures Referred By Marcelo t Referred To Contact Procedures AIRO Referral ID Status Reason Start Date Expiration Date Visits Re quested Visits Authorized [id number] 1 1 Encounter Details Date Type Department Care Team (Latest Contact Info) Description 02/07/2016 2:59 PM EDT - 02/07/2016 3:28 PM EDT Hospital Encounter [place] [address] Riley Lara MD [facility] [address] [place] [address] ST elevation myocardial infarction (STEMI) of anterior [...] 9:00 AM EDT Laboratory Appointment Lab [address] [place] [address] 01/20/2025 9:30 AM EDT Appointment [place] [phone] Ana Ho MD [facility] [place] [address] 01/20/2025 11:00 AM EDT Office Visit [place] [phone] Ana Ho MD [facility] [place] [address] 01/20/2025 12:00 PM EDT Office Visit [place] [phone] Candy Clifford MD [facility] DR [facility] [address] documented as of this encounter Visit Diagnoses Diagnosis ST elevation myocardial infarction (STEMI) of anterior wall Acute myocardial infarction of other anterior wall, episode of care unspecified documented in this encounter Care Teams Dictaphone Mechanic Relationship Specialty Start Date End Date Amber Ratliff, AN EMPLOYEE SPONSOR OR [employer] AND [address] [place] [address] PCP - General Family Medicine 02/07/16 05/01/17 documented as of this encounter
--- OUTSIDE RECORDS SUMMARY | 2024-10-07 20:40 | XMS_ITS | Encounter Summary ---
Author Organization [facility] [place] [address] Care Team Providers Care Cloth Printing Inspector Name Role Phone Kathleen Ratliff Alber FRANKLIN Primary Care Provider Reason for Visit * Auth/Cert Specialty Diagnoses / Procedures Referred By Contac t Referred To Contact Diagnoses Atypical angina NSTEMI/ ST ELevation Referral ID Status Reason Start Date Expiration Date Visits Re quested Visits Authorized [id number] 1 1 Encounter Details Date Type Department Care Team (Latest Contact Info) Description 02/07/2016 3:29 PM EDT - 02/08/2016 3:30 PM EDT Hospital Encounter Cardiac [place] [id number] Riley Lara MD [facility] [address] ST elevation myocardial infarction (STEMI), unspecified artery; [...] for initial ST elevation and trop elevation. roofing laborer did not find sign of acute [...] available in the chart here intransfer from [facility] via [facility]. Patient initially presented to her [...] 3.9 (UNL 0.06). CXR was clear at [place] ED. Initial EKG was notable for ST [...] #Chest pain 65 yo woman transferred from [place] as a STEMI. She had chest discomfort on Saturday and went to her PCP this AM. EKG revealed ST elevation in the inferior and anterolateral leads and she was sent to the ER. EKGs transmitted to [facility] and due to recurrent chest pain she was brought to the engineering laboratory technician at [facility]. ?? During helicopter transfer she had chest [...] and Lab Data: Discharge Labs: Recent Labs 02/08/1625 02/07/16 1810 WBC 7.0 7.2 HGB 12.0 [...] appointments: During 8am-5pm Saturday through Saturday call [phone] to speak with a nurse in the cardiology clinic All other times call [phone] and ask to speak to the line manager foundation relations director. Diet: - Heart healthy: low salt, low [...] APRN (your PCP) Your Inpatient Doctor(s) at [facility]: Riley Lara MD - Attending physician Espinoza Chaidze MD - Resident physician Madeline Price - Egg Caser physician Your Primary Care Provider: KATHLEEN RATLIFF, EBD SPECIAL EDUCATION TEACHER [address] [facility] [address] For questions regarding issues relating to your hospitalization on the Hospital Medicine Service, please contact your inpatient physician through the [facility] Superintendent Custodian Janitor [phone]. Issues after hours and on weekends will be handled by the Hospitalist staff on-call. For questions regarding this document or issues relating to this hospitalization on the Medical Service, please contact your inpatient physician through the [facility] Superintendent Custodian Janitor . Issues afterhours and on weekends will be handled by the Associate Director Of Development staff on-call. Signed: Madeline Price Internal Medicine, [...] appointments: During 8am-5pm Saturday through Saturday call [phone] to speak with a nurse in the cardiology clinic All other times call [phone] and ask to speak to the line manager foundation relations director. Diet: - Heart healthy: low salt, low [...] APRN (your PCP) Your Inpatient Doctor(s) at [facility]: Riley Lara MD - Attending physician Espinoza Chaidez MD - Resident physician Madeline Price - Egg Caser physician Your Primary Care Provider: KATHLEEN RATLIFF APRN [address] [facility] [address] For questions regarding issues relating to your hospitalization on the Hospital Medicine Service, please contact your inpatient physician through the [facility] Superintendent Custodian Janitor [phone]. Issues after hours and on weekends will [...] Interval History: 65 yo woman transferred from [place] as a STEMI. She had chest discomfort on Saturday and went to her PCP this AM. EKG revealed ST elevation in the inferior and anterolateral leads and she was sent to the ER. EKGs transmitted to [facility] and due to recurrent chest pain she was brought to the engineering laboratory technician at [facility]. ?? During helicopter transfer she had chest [...] available in the chart here intransfer from [facility] via [facility] air. Patient initial presented to [...] Price MD PGY-1, Internal Medicine Team Pager [phone] 02/07/2016 documented in this encounter H&P Notes [...] Interval History: 65 yo woman transferred from [place] as a STEMI. She had chest discomfort on Saturday and went to her PCP this AM. EKG revealed ST elevation in the inferior and anterolateral leads and she was sent to the ER. EKGs transmitted to [facility] and due to recurrent chest pain she was brought to the engineering laboratory technician at [facility]. During helicopter transfer she had chest discomfort [...] available in the chart here intransfer from [facility] via [employer] [employer] [facility]. Patient initially presented to her [...] 3.9 (UNL 0.06). CXR was clear at [place] ED. Initial EKG was notable for ST [...] [address] drug Using of [employer] ROS (positives in bold): ROS Constitutional: No [...] available in the chart here intransfer from [facility] via [facility] air. Patient initial presented to [...] Price MD PGY-1, Internal Medicine Team Pager [phone] 02/07/2016 STAFF ADDENDUM: I have reviewed the [...] Safety Interventions Safety Precautions/Fall Reduction supervised activity;safety glass installer;room near unit station;nonskid shoes/slippers when out of bed;muscle strengthening facilitated;low bed;fall reduction program maintained;environmental modification -- Goal: Infection Control 02/08/16817 Coping/Psychosocial Response Interventions Counseling calming techniques promoted;emotional support provided;goal setting facilitated;verbalization of feelings encouraged;understanding of situation facilitated;relaxation techniques promoted Safety Interventions Isolation Precautions standard precautions maintained Infection Prevention bronchial hygiene promoted;environmental surveillance;hydration promoted;nutrition promoted;promote handwashing;rest/sleep promoted Goal: Discharge Needs Assessment 02/07/16 1900 02/07/16 22002/08/16846 Discharge Needs Assessment Concerns to be Addressed [...] EVALUATION NOTE: OUTCOME SUMMARY: [facility] She has some [...] 9:00 AM EDT Laboratory Appointment Lab [address] [place] [address] 01/20/2025 9:30 AM EDT Appointment [place] [address] Ana Ho MD [facility] [place] [address] 01/20/2025 11:00 AM EDT Office Visit [place] [phone] Ana Ho MD [facility] [place] [address] 01/20/2025 12:00 PM EDT Office Visit Weight Center at [facility] [place] [address] Candy Clifford MD [facility] [address] [facility] [address] documented as of this encounter Procedures Procedure Name Priority Date/Time Associated Diagnosis Comments ASSEMBLIES AND INSTALLATIONS INSPECTOR SCAN 02/09/2016 12:00 AM EDT CARDIAC CATH SCAN 02/09/2016 12: 00 AM EDT ECHO COMPLETE Routine 02/08/2016 10:11 AM EDT Chest pain, unspecified type EKG 12-LEAD Routine 02/08/2016 9:[address] elevation myocardial infarction (STEMI), unspecified artery HEMOGRAM Routine 02/08/2016 6:25 AM EDT DIFFERENTIAL, AUTOMATED Routine 02/08/2016 6:25 AM EDT CARDIAC ENZYMES ([facility]) STAT 02/08/2016 6:25 AM EDT CBC (WITH DIFF) Routine 02/08/2016 6:25 AM EDT TSH STAT 02/08/2016 6:25 AM EDT BASIC METABOLIC PANEL STAT 02/08/2016 6:25 AM EDT CARDIAC ENZYMES ([facility]) STAT 02/07/2016 11:45 PM EDT POCT GLUCOSE Routine 02/07/2016 9:37 PM EDT RAPID DRUG SCREEN W/ CONFIRMATION, URINE Routine 02/07/2016 6:33 PM EDT THC (MARIJUANA), URINE, CONFIRMATION Routine 02/07/2016 6:33 PM EDT HEMOGRAM Routine 02/07/2016 6:10 PM EDT DIFFERENTIAL, AUTOMATED Routine 02/07/2016 6:10 PM EDT BLUE TUBE HOLD Routine 02/07/2016 6:10 PM EDT CARDIAC ENZYMES ([facility]) STAT 02/07/2016 6:10 PM EDT CBC (WITH DIFF) Routine 02/07/2016 6:10 PM EDT MAGNESIUM Routine 02/07/2016 6:10 PM EDT COMPREHENSIVE METABOLIC PANEL Routine 02/07/2016 6:10 PM EDT FILM LIBRARY STORAGE ONLY DX CHEST Routine 02/07/2016 12:00 AM EDT Pain documented in this encounter Results * SCAN DOC: ASSEMBLIES AND INSTALLATIONS INSPECTOR (02/09/2016 12:00 AM EDT) Anatomical Region Laterality [...] SHERRON ? (Age): 1950(65y) Med Rec#: ? [id number] ?Sex: ?F ? Site Loc: ? [facility] ?Ht / Wt: ??159(cm)/121(kg) Pt. Loc: ?[facility] ? BSA: ?2.18 Study Date: ?? 02/08/2016 ?Pt. Type: Inpatient Tape: ? Referring: Riley Lara Referring: CYNDY Reading: Chele Garcia ([id number]) Geospatial Scientist: Carmen Arriaza Diagnosis: *ICD-10-PCS Chest pain, unspecified (R07.9) CPT Codes: *Echo Full (27273) *Spectral Doppler (45628) *Color Doppler (85094) BP: ? 122/56 SUMMARY: 1. The left [...] E-wave Vmax ?1.2 ?m/sec ? MV deceleration [id number] ?msec ? MV A-wave Vmax ?1.4 ?m/sec [...] ? Mid-Inferior ?Normal ? Mid-Inferoseptal ?Normal ? [place]-Septal ? Normal ? [place]-Anterior ? Normal ? [place]-Lateral ?Normal ? [place]-Inferior ? Normal ? [place]-Tip ?Hypokinetic ? This report has been electronically signed by: Chele Garcia MD ? 02/08/2016 10:38:43 Images reviewed and interpretation verified [facility] Cardiac Ultrasound Laboratory Procedure Note Chele Gracia MD - 02/08/2016 Procedure: Transthoracic Echocardiogram Patient: ROBER JAMES(Age): 1950(65y) Med Rec#: [id number] Sex: F Site Loc: [facility] Ht / Wt: 159(cm)/121(kg) Pt. Loc: [facility] BSA: 2.18 Study Date: 02/08/2016 Pt. Type: Inpatient Tape: Referring: Riley Lara Referring: CYNDY Reading: Chele Garcia ([id number]) Geospatial Scientist: Carmen Arriaza Diagnosis: *ICD-10-PCS Chest pain, unspecified (R07.9) CPT Codes: *Echo Full (69333) *Spectral Doppler (93611) *Color Doppler (95114) BP: 122/56 SUMMARY: 1. The left ventricular [...] MV E-wave Vmax 1.2 m/sec MV deceleration mwmc467.7 msec MV A-wave Vmax 1.4 m/sec MV [...] Normal Mid-Posterolateral Normal Mid-Inferior Normal Mid-Inferoseptal Normal [place]-Septal Normal [place]-Anterior Normal [place]-Lateral Normal [place]-Inferior Normal [place]-Tip Hypokinetic This report has been electronically signed by: Chele Garcia MD 02/08/2016 10:38:43 Images reviewed and interpretation verified [facility] Cardiac Ultrasound Laboratory Riley Lara MD ECHO ORDERABLES * EKG 12 Lead (02/08/2016 9:58 AM EDT) Ventricular rate 74 BPM MUSE SYSTEM Atrial Rate 75 BPM MUSE SYSTEM P-R Interval 186 ms MUSE SYSTEM QRS Duration 86 ms MUSE SYSTEM Q-T Interval 396 ms MUSE SYSTEM QTC Calculated (Bezet) 439 ms MUSE SYSTEM Calculated P Leon 38 degrees MUSE SYSTEM Calculated R Leon 36 degrees MUSE SYSTEM Calculated T Leon 50 degrees MUSE SYSTEM INTERPRETATION Normal sinus rhythm Nonspecific ST abnormality Abnormal ECG No previous ECGs available Confirmed by MD Yared, Leo ([id number]) on 02/08/2016 3:04:02 PM MUSE SYSTEM 02/08/2016 9:58 AM EDT 02/08/2016 3:04 PM EDT Riley Lara MD ECG ORDERABLES Performing Organization Address City/[facility]/ZIP Co de Phone Number MUSE SYSTEM * TSH (02/08/2016 6:25 AM EDT) Pathologist [facility] Thyroid Stimulating Hormone 1.99 0.27 - 4.20 mcIU/mL [facility] Blood specimen (specimen) Venous Draw / Unknown 02/08/2016 6:25 AM EDT 02/08/2016 7:02 AM EDT Narrative Resulting Agency Comment Spec In Lab Riley Lara MD CHEMISTRY ORDERABLES Performing Organization Address City/[facility]/ZIP Co de Phone Number [facility] [place] [address] * (ABNORMAL) Basic Metabolic Panel (non-fasting) (02/08/2016 6:25 AM EDT) Glucose 95 65 - 199 mg/dL [facility] Comment:Diabetes: >=200 mg/d L plus symptoms Blood Urea Nitrogen 10 8 - 18 mg/dL [facility] Creatinine 0.73 0.70 - 1.20 mg/dL [facility] Comment: Please note that the pediatric reference intervals supplied above were not validated at [facility]. Results from pediatric patients should be interpreted in conjunction to the patient's age, height and muscle mass. Sodium 141 135 - 145 mmol/L [facility] Potassium 4.1 3.5 - 5.0 mmol/L [facility] Comment: Please note: ??Patients with WBC >100,000 may have falsely elevated Potassium levels. ??For accurate Potassium quantification in these patients send serum separator tube (gold top) for subsequent determinations. ??Contact the Clinical Chemistry Laboratory if there are any questions. Chloride 105 98 - 107 mmol/L [facility] Carbon Dioxide 24 22 - 31 mmol/L [facility] Anion Gap 12 5 - 15 mmol/L [facility] Calcium 8.2(L) 8.5 - 10.5 mg/dL [facility] Est Glomerular Filtration Rate >60 >=60 [facility] Comment: This estimated GFR (eGFR) [...] the following links into your internet browser. [email or web address] Blood specimen (specimen) Venous Draw / Unknown 02/08/2016 6:25 AM EDT 02/08/2016 7:02 AM EDT Narrative Resulting Agency Comment Spec In Lab Riley Lara MD CHEMISTRY ORDERABLES [facility] [place] [address] * Differential, Automated (02/08/2016 6:25 AM EDT) Neutrophil % 56.9 % [facility] Neutrophil Absolute 3.95 1.50 - 6.30 x10(3)/mcL [facility] Lymph % 30.9 % [facility] Lymphocytes Abs 2.2 1.0 - 3.6 x10(3)/[facility] Monocyte % 10.5 % [facility] Monocyte Abs 0.7 0.2 - 1.0 x10(3)/[facility] LABOR[facility] Eos % 1.3 % [facility] Eosinophils Abs 0.1 0.0 - 0.5 x10(3)/[facility] Basophil % 0.3 % [facility] Baso Absolute 0.0 0.0 - 0.2 x10(3)/[facility] LAB[facility] Immature Gran % 0.10 % [facility] Comment: Immature granulocytes(IG's)percentage and absolute count will include metamyelocytes, myelocytes, and promyelocytes. Blood smears from CBCs yielding IG's will be scanned manually for concordance. If this scan disagrees with the automated IG or if promyelocytes are noted, a manual differential will be performed. Immature Gran Absolute 0.01 0.00 - 0.05 x10(3)/[facility] Blood specimen (specimen) 02/08/2016 6:25 AM EDT 02/08/2016 7:02 AM EDT Narrative Resulting Agency Comment Spec In Lab Riley Lara MD HEMATOLOGY ORDERABLE S [facility] [place] [address] * (ABNORMAL) Hemogram (02/08/2016 6:25 AM EDT) White Blood Cell 7.0 4.0 - 10.0 x10(3)/[facility] Red Blood Cell 4.32 3.93 - 5.22 x10(6)/[facility] Hemoglobin 12.0 11.2 - 15.7 gm/dL [facility] Hematocrit 35.6 34.0 - 45.0 % [facility] Mean Cell Volume 82.4 79.0 - 94.0 fL [facility] Mean Cell Hemoglobin 27.8 26.6 - 32.2 pg [facility] Mean Cell Hemoglobin Concentration 33.7 32.0 - 36.5 gm/dL [facility] Platelet 200 145 - 370 x10(3)/mc L [facility] RDW Standard Deviation 48.2(H) 35.0 - 46.0 fL [facility] RDW coefficient of variation 15.8(H) 10.9 - 14.4 % [facility] Mean Platelet Volume 10.1 9.0 - 12.0 fL [facility] Blood specimen (specimen) 02/08/2016 6:25 AM EDT 02/08/2016 7:02 AM EDT Narrative Resulting Agency Comment Spec In Lab Riley Lara MD HEMATOLOGY ORDERABLE S Performing Organization Address City/State/[facility] Co de Phone Number [facility] [place] [phone] * (ABNORMAL) Cardiac Enzymes (02/08/2016 6:25 AM EDT) Troponin-T 0.48(H) <=0.03 ng/mL [facility] Comment: 0.03 ng/mL: Represents the 99th percentile upper reference limit for normals. >0.03 ng/mL: Elevated cardiac troponin T level indicative of myocardial damage. Diagnosis of acute, evolving or recent [place] requires a typical rise and gradual fall [...] consensus document of the Joint Society of Cardiology/[place] College of Cardiology Committee for the redefinition of myocardial infarction. ??Journal of the [place] College of Cardiology 2000; 36: 959-969] Creatine Kinase 136 0 - 160 unit/L [facility] Blood specimen (specimen) 02/08/2016 6:25 AM EDT 02/08/2016 7:02 AM EDT Narrative Resulting Agency Comment Spec In Lab Riley Lara MD CHEMISTRY ORDERABLES Performing Organization Address City/[facility] Co de Phone Number [facility] [place] [address] * (ABNORMAL) Cardiac Enzymes (02/07/2016 11:45 PM EDT) [facility] Troponin-T 0.47(H) <=0.03 ng/mL [facility] Comment: 0.03 ng/mL: Represents the 99th percentile upper reference limit for normals. >0.03 ng/mL: Elevated cardiac troponin T level indicative of myocardial damage. Diagnosis of acute, evolving or recent [place] requires a typical rise and gradual fall [...] consensus document of the Joint Society of Cardiology/[place] College of Cardiology Committee for the redefinition of myocardial infarction. ??Journal of the [place] College of Cardiology 2000; 36: 959-969] Creatine Kinase 158 0 - 160 unit/L [facility] Blood specimen (specimen) 02/07/2016 11:45 PM EDT 02/07/2016 11:49 PM EDT Narrative Resulting Agency Comment Spec In Lab Riley Lara MD CHEMISTRY ORDERABLES Performing Organization Address City/[facility]/ZIP Co de Phone Number [facility] [place] [address] * POCT Glucose (02/07/2016 9:37 PM EDT) [facility] Glucose, POC 83 65 - 199 mg/dL [facility] Comment: Supplemental ranges: <140 mg/dL before meals <180 mg/dL all other times of the day Blood specimen (specimen) 02/07/2016 9:37 PM EDT 02/07/2016 9:37 PM EDT Riley Lara MD POINT OF CARE TEST O RDERABLES Performing Organization Address [facility] Co de Phone Number [facility] [place] [address] * THC (Marijuana), Urine Confirmation (02/07/2016 6:33 PM EDT) [facility] U THC Conf Test ?Result ??Flag ??Unit ?? RefValue Drug of Abuse, THC Conf, U ??GC/MS Confirmation - THC ?Positive ??THC Carboxylic Acid ? 179 ? ng/mL ??Cutoff:<3 ---ADDITIONAL INFORMATION----- This report is intended for use in clinical monitoring and management of patients. It is not intended for use in employment-relat ed drug testing. Test Performed by: [employer] [address], [place] [address] [employer] Supervisor: Carolyn Kenny, Ph.D. [facility] Urine specimen (specimen) 02/07/2016 6:33 PM EDT 02/08/2016 8:31 AM EDT Narrative Resulting Agency Comment Spec In Lab Riley Lara MD LAB SEND OUT ORDERAB LES [facility] [place] [address] * (ABNORMAL) Rapid Drug Screen, Urine with Confirm (02/07/2016 6:33 PM EDT) [facility] Marijuana Metabolites Screen Presumptive Pos(A) None Detected [facility] Comment: The marijuana metabolites screen detects the THC Metabolite (77-mjt-9-carboxy-? 9 -THC) at concentrations >50 ng/mL. Qualitative Drug screens are reported as ? None Detected? or ? Presumptive Positive? as the results are not routinely confirmed by highly-specific methods. As with any screen occasional false positive results from cross-reacting substances can occur. Not for Medico-Legal Purposes. Phencyclidine Screen, Urine None Detected None Detected [facility] Comment: The phencyclidine screen detects phencyclidine at concentrations >25 ng/mL. Qualitative Drug screens are reported as ? None Detected? or ? Presumptive Positive? as the results are not routinely confirmed by highly-specific methods. As with any screen occasional false positive results from cross-reacting substances can occur. Not for Medico-Legal Purposes. [facility] Cocaine Metabolites Screen None Detected None Detected [facility] Comment: The cocaine metabolites screen detects benzoylecgonine (Cocaine Metabolite) at concentrations >150 ng/mL. Qualitative Drug screens are reported as ? None Detected? or ? Presumptive Positive? as the results are not routinely confirmed by highly-specific methods. As with any screen occasional false positive results from cross-reacting substances can occur. Not for Medico-Legal Purposes. Methamphetamines Screen, Urine None Detected None Detected [facility] Comment: The methamphetamine screen detects d-methamphetamine at concentrations >500 ng/mL. Qualitative Drug screens are reported as ? None Detected? or ? Presumptive Positive? as the results are not routinely confirmed by highly-specific methods. As with any screen occasional false positive results from cross-reacting substances can occur. Not for Medico-Legal Purposes. [facility] Opiates Screen None Detected None Detected [facility] Comment: The opiates screen detects opiates at a concentration >100 ng/mL and oxymorphone >250 ng/mL. Qualitative Drug screens are reported as ? None Detected? or ? Presumptive Positive? as the results are not routinely confirmed by highly-specific methods. As with any screen occasional false positive results from cross-reacting substances can occur. Not for Medico-Legal Purposes. [facility] Amphetamines Screen None Detected None Detected [facility] Comment: The amphetamine screen detects d-amphetamine at concentrations >500 ng/mL. Qualitative Drug screens are reported as ? None Detected? or ? Presumptive Positive? as the results are not routinely confirmed by highly-specific methods. As with any screen occasional false positive results from cross-reacting substances can occur. Not for Medico-Legal Purposes. [facility] Benzodiazepines Screen None Detected None Detected [facility] Comment: The benzodiazepines screen detects benzodiazepines [...] KEON Tricyclics Screen None Detected None Detected [facility] Comment: The tricyclics screen detects tricyclic [...] [facility]ON Methadone Screen None Detected None Detected [facility] Comment: The methadone screen detects methadone at concentrations >200 ng/mL. Qualitative Drug screens are reported as ? None Detected? or ? Presumptive Positive? as the results are not routinely confirmed by highly-specific methods. As with any screen occasional false positive results from cross-reacting substances can occur. Not for Medico-Legal Purposes. KEON Barbiturates Screen None Detected None Detected [facility] Comment: The barbiturates screen detects barbiturate [...] KEON Oxycodone Srceen None Detected None Detected [facility] Comment: The oxycodone screen detects oxycodone at concentrations >100 ng/mL and oxymorphone >250 ng/ml. Qualitative Drug screens are reported as ? None Detected? or ? Presumptive Positive? as the results are not routinely confirmed by highly-specific methods. As with any screen occasional false positive results from cross-reacting substances can occur. Not for Medico-Legal Purposes. Propoxyphene Screen, Urine None Detected None Detected [facility] Comment: The propoxyphene screen detects propoxyphene at concentrations >300 ng/mL. Qualitative Drug screens are reported as ? None Detected? or ? Presumptive Positive? as the results are not routinely confirmed by highly-specific methods. As with any screen occasional false positive results from cross-reacting substances can occur. Not for Medico-Legal Purposes. KEON Buprenorphine Screen None Detected None Detected [facility] Comment: The buprenorphine screen detects buprenorphine at concentrations >10 ng/mL. Qualitative Drug screens are reported as ? None Detected? or ? Presumptive Positive? as the results are not routinely confirmed by highly-specific methods. As with any screen occasional false positive results from cross-reacting substances can occur. Not for Medico-Legal Purposes. KEON Adulterants Screen None Detected None Detected [facility] Comment: No adulteration or dilution of this urine sample was detected. All urine samples submitted for urine drugs of abuse analysis are tested for Creatinine and pH and for the presence of oxidants, nitrites, chromate and aldehydes (glutaraldehyde). Urine specimen (specimen) 02/07/2016 6:33 PM EDT 02/07/2016 6:48 PM EDT Narrative Resulting Agency Comment Spec In Lab Riley Lara MD URINE ORDERABLES [facility] [place] [address] * Blue Tube HOLD (02/07/2016 6:10 PM EDT) Pathologist [facility] Blue Hold Sample in lab. [facility] Blood specimen (specimen) Venous Draw / Unknown 02/07/2016 6:10 PM EDT 02/07/2016 6:18 PM EDT Riley Lara MD HEMATOLOGY ORDERABLE S [facility] [place] [address] * Differential, Automated (02/07/2016 6:10 PM EDT) [facility] Neutrophil % 66.5 % [facility] Neutrophil Absolute 4.77 1.50 - 6.30 x10(3)/[facility] Lymph % 23.8 % [facility] Lymphocytes Abs 1.7 1.0 - 3.6 x10(3)/[facility] Monocyte % 8.5 % [facility] Monocyte Abs 0.6 0.2 - 1.0 x10(3)/[facility] Eos % 1.0 % [facility] Eosinophils Abs 0.1 0.0 - 0.5 x10(3)/[facility] Basophil % 0.1 % [facility] Baso Absolute 0.0 0.0 - 0.2 x10(3)/[facility] Immature Gran % 0.10 % [facility] Comment: Immature granulocytes(IG's)percentage and absolute count will include metamyelocytes, myelocytes, and promyelocytes. Blood smears from CBCs yielding IG's will be scanned manually for concordance. If this scan disagrees with the automated IG or if promyelocytes are noted, a manual differential will be performed. Immature Gran Absolute 0.01 0.00 - 0.05 x10(3)/[facility] [place] specimen (specimen) 02/07/2016 6:10 PM EDT 02/07/2016 6:17 PM EDT Narrative Resulting Agency Comment Spec In Lab Riley Lara MD HEMATOLOGY ORDERABLE S [facility] [place] [address] * (ABNORMAL) Hemogram (02/07/2016 6:10 PM EDT) White Blood Cell 7.2 4.0 - 10.0 x10(3)/mc L [facility] Red Blood Cell 4.69 3.93 - 5.22 x10(6)/mc L [facility] Hemoglobin 13.2 11.2 - 15.7 gm/dL [facility] Hematocrit 38.2 34.0 - 45.0 % [facility] Mean Cell Volume 81.4 79.0 - 94.0 fL [facility] Mean Cell Hemoglobin 28.1 26.6 - 32.2 pg [facility] Mean Cell Hemoglobin Concentration 34.6 32.0 - 36.5 gm/dL [facility] Platelet 203 145 - 370 x10(3)/mc L [facility] RDW Standard Deviation 47.1(H) 35.0 - 46.0 fL [facility] RDW coefficient of variation 15.9(H) 10.9 - 14.4 % [facility] Mean Platelet Volume 9.5 9.0 - 12.0 fL [facility] Blood specimen (specimen) 02/07/2016 6:10 PM EDT 02/07/2016 6:17 PM EDT Narrative Resulting Agency Comment Spec In Lab Riley Lara MD HEMATOLOGY ORDERABLE S [facility] [place] [address] * Magnesium (02/07/2016 6:10 PM EDT) Magnesium 0.71 0.69 - 1.07 mmol/L [facility] Blood specimen (specimen) 02/07/2016 6:10 PM EDT 02/07/2016 6:17 PM EDT Narrative Resulting Agency Comment Spec In Lab Riley Lara MD CHEMISTRY ORDERABLES [facility] [place] [address] * (ABNORMAL) Comprehensive metabolic panel (non-fasting) (02/07/2016 6:10 PM EDT) Glucose 89 65 - 199 mg/dL [facility] Comment:Diabetes: >=200 mg/d L plus symptoms Blood Urea Nitrogen 10 8 - 18 mg/dL [facility] Creatinine 0.79 0.70 - 1.20 mg/dL [facility] Comment: Please note that the pediatric reference intervals supplied above were not validated at [facility] Results from pediatric patients should be interpreted in conjunction to the patient's age, height and muscle mass. Sodium 141 135 - 145 mmol/L [facility] Potassium 4.0 3.5 - 5.0 mmol/L [facility] Comment: Please note: ??Patients with WBC >100,000 may have falsely elevated Potassium levels. ??For accurate Potassium quantification in these patients send serum separator tube (gold top) for subsequent determinations. ??Contact the Clinical Chemistry Laboratory if there are any questions. Chloride 103 98 - 107 mmol/L [facility] Carbon Dioxide 24 22 - 31 mmol/L [facility] Anion Gap 14 5 - 15 mmol/L [facility] Calcium 8.7 8.5 - 10.5 mg/dL [facility] Protein, Total 6.6 6.1 - 8.0 gm/dL [facility] Albumin 3.4 3.2 - 5.2 gm/dL [facility] Aspartate Aminotransferase 45(H) 0 - 30 unit/L [facility] Alanine Aminotransferase 16 0 - 30 unit/L [facility] Alkaline Phosphatase 74 40 - 104 unit/L [facility] Bilirubin, Total 1.0 0.2 - 1.3 mg/dL [facility] Bilirubin, Direct 0.3 0.0 - 0.3 mg/dL [facility] Est Glomerular Filtration Rate >60 >=60 [facility] Comment: This estimated GFR (eGFR) [...] the following links into your internet browser. [email or web address] Blood specimen (specimen) 02/07/2016 6:10 PM EDT 02/07/2016 6:17 PM EDT Narrative Resulting Agency Comment Spec In Lab Rliey Lara MD CHEMISTRY ORDERABLES [facility] [place] [id number] * (ABNORMAL) Cardiac Enzymes (02/07/2016 6:10 PM EDT) Troponin-T 0.50(H) <=0.03 ng/mL [facility] Comment: 0.03 ng/mL: Represents the 99th percentile upper reference limit for normals. >0.03 ng/mL: Elevated cardiac troponin T level indicative of myocardial damage. Diagnosis of acute, evolving or recent [place] requires a typical rise and gradual fall [...] consensus document of the Joint Society of Cardiology/[place] College [employer]iology Committee for the redefinition of myocardial infarction. 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 2232 (New Bag - Provider: Toshia [...] Routine documented in this encounter Care Teams Cloth Printing Inspector Relationship Specialty Start Date End Date Kathleen Ratliff APRN [address] [place] [address] PCP - General Family Medicine 02/07/16 05/01/17 documented as of this encounter
--- OUTSIDE RECORDS SUMMARY | 2024-10-07 20:40 | XMS_ITS | Encounter Summary ---
Author Organization [facility] Address [facility] [place] [address] Care Team Providers Care Machine Spring Former Name Role Phone Amber Ratliff APRN Primary Care Provider [phone] Encounter Details Date Type Department Care Team (Late st Contact Info) Description 02/07/2016 Telephone Cardiology at [address] [place] [address] Jaswant Teresa Jr., MD Social History Tobacco Use Types Packs/Day [...] EDT Dr. Amber Ratliff called RE pt Telam Richter 52 she had never seen her before. She wants to speak w/ Dr. Teresa SUHAS. She is having Pt stay until she speaks to Dr. Teresa. Dr. Ratliff phone # is [phone] Dr Teresa knows about this documented in this encounter Plan of Treatment Upcoming Encounters Date Type Department Care Team (Late st Contact Info) Description 01/20/2025 9:00 AM EDT Laboratory Appointment Lab [address] [place] [address] 01/20/2025 9:30 AM EDT Appointment Ultrasound at [address] Ana Ho MD [facility] [place] [address] 01/20/2025 11:00 AM EDT Office Visit [place] [phone] Aan Ho MD [facility] [place] [address] 01/20/2025 12:00 PM EDT Office Visit [place] [phone] Candy Clifford MD [facility] DR [facility] [place] [address] documented as of this encounter Visit Diagnoses Not on filedocumented in this encounter Care Teams Machine Spring Former Relationship Specialty Start Date End Date Amber Ratliff APRN [address] [place] [address] PCP - General Family Medicine 02/07/16 05/01/17 documented as of this encounter
--- OUTSIDE RECORDS SUMMARY | 2024-10-07 20:40 | XMS_ITS | Encounter Summary ---
Author Organization [facility] Address [facility] [place] [address] Care Team Providers Care Medical Secretary Receptionist Name Role Phone Amber Ratliff APRN Primary Care Provider [phone] Encounter Details Date Type Department Care Team (Latest Contact Info) Description 03/13/2016 - 03/13/2016 11:59 PM EDT Hospital Encounter Radiology Library at [facility] [place] [address] Sabas Benito MD [address] [place] [address] [place] [address] Pain Discharge Disposition: Home Social History Tobacco [...] 01/20/2025 9:00 AM EDT Laboratory Appointment Lab [address] [address] 01/20/2025 9:30 AM EDT [place]oint[place] [phone] Ana Ho MD [facility] [place] [address] 01/20/2025 11:00 AM EDT Office [place] [phone] Ana Ho MD [facility] [place] [address] 01/20/2025 12:00 PM EDT Office [place] [phone] Candy Clifford MD [facility] DR NICHOL[facility] [address] documented as of this encounter Procedures Procedure Name Priority Date/Time Associated Diagnosis Comments FILM LIBRARY STORAGE ONLY CT ABDOMEN AND PELVIS Routine 03/13/2016 12:00 AM EDT Pain documented in this encounter Results * Film Library- Storage Only CT Abdomen & Pelvis (03/13/2016 12:00 AM EDT) Narrative [facility] - 04/07/2016 10:49 AM EDT This exam is for storage only and is auto-finalizing. Sabas Benito MD [facility] FILM LIBRARY ORD ERABLES [facility] [place], [place] documented in this encounter Visit Diagnoses Diagnosis Pain Generalized pain documented in this encounter Care Teams Medical Secretary Receptionist Relationship Specialty Start Date End Date Amber Ratliff, COMPOUND SPECIALIST [address] [place] [address] PCP - General Family Medicine 02/07/16 05/01/17 documented as of this encounter
--- OUTSIDE RECORDS SUMMARY | 2024-10-07 20:40 | XMS_ITS | Encounter Summary ---
Author Organization [facility] [place] [address] Care Team Providers Care Wedger And Gluer Name Role Phone Kathleen Ratliff Alber FRANKLIN Primary Care Provider [phone] Reason for Visit * Auth/Cert Specialty Diagnoses / Procedures Referred By Contac t Referred To Contact Diagnoses Atypical angina NSTEMI/ ST ELevation Referral ID Status Reason Start Date Expiration Date Visits Re quested Visits Authorized [id number] 1 1 Encounter Details Date Type Department Care Team (Late st Contact Info) Description 02/07/2016 2:00 PM EDT - 02/07/2016 3:00 PM EDT [place] [phone] Flavio Daniels MD Cardiac Catheterization Social History Tobacco Use Types [...] for initial ST elevation and trop elevation. labor employment associate did not find sign of acute ischemia. [...] available in the chart here intransfer from [facility] via [employer] air. Patient initially presented to her PCP [...] 3.9 (UNL 0.06). CXR was clear at [facility]. Initial EKG was notable for ST [...] #Chest pain 65 yo woman transferred from [facility] as a STEMI. She had chest discomfort on Saturday and went to her PCP this AM. EKG revealed ST elevation in the inferior and anterolateral leads and she was sent to the ER. EKGs transmitted to [facility] and due to recurrent chest pain she was brought to the laborer cook house at [facility]. ?? During helicopter transfer she had chest [...] and Lab Data: Discharge Labs: Recent Labs 02/08/1662402/07/16 1810 WBC 7.0 7.2 HGB 12.0 13.2 [...] appointments: During 8am-5pm Saturday through Saturday call [phone] to speak with a nurse in the cardiology clinic All other times call [phone] and ask to speak to the rooming house keeper military source operations officer. Diet: - Heart healthy: low salt, low [...] APRN (your PCP) Your Inpatient Doctor(s) at [facility]: Riley Lara MD - Attending physician Espinoza Chaidez MD - Resident physician Madeline Price - Shipping Track Supervisor physician Your Primary Care Provider: KATHLEEN RATLIFF APRN [address] [facility] [id number] For questions regarding issues relating to your hospitalization on the Hospital Medicine Service, please contact your inpatient physician through the [facility] Android Developer [phone]. Issues after hours and on weekends will be handled by the Hospitalist staff on-call. For questions regarding this document or issues relating to this hospitalization on the Medical Service, please contact your inpatient physician through the [facility] Android Developer . Issues afterhours and on weekends will be handled by the Substation Engineer staff on-call. Signed: Renopriyalise Price Internal Medicine, PGY1 Cardiology Team [id number] 02/08/2016 documented in this encounter Discharge Instructions [...] appointments: During 8am-5pm Saturday through Saturday call [phone] to speak with a nurse in the cardiology clinic All other times call [phone] and ask to speak to the rooming house keeper military source operations officer. Diet: - Heart healthy: low salt, low [...] APRN (your PCP) Your Inpatient Doctor(s) at [facility]: Riley Lara MD - Attending physician Espinoza Chaidez MD - Resident physician Madeline Price - Shipping Track Supervisor physician Your Primary Care Provider: KATHLEEN RATLIFF APRN 14 [facility] [id number] For questions regarding issues relating to your hospitalization on the Hospital Medicine Service, please contact your inpatient physician through the [facility] Android Developer [phone]. Issues after hours and on weekends will [...] Interval History: 65 yo woman transferred [facility] as a STEMI. She had chest discomfort on Saturday and went to her PCP this AM. EKG revealed ST elevation in the inferior and anterolateral leads and she was sent to the ER. EKGs transmitted to [facility] and due to recurrent chest pain she was brought to the laborer cook house at [facility]. ?? During helicopter transfer she had chest [...] available in the chart here [facility]fer [facility]. Patient initial presented to her PCP [...] Price MD PGY-1, Internal Medicine Team Pager [phone] 02/07/2016 documented in this encounter H&P Notes [...] Interval History: 65 yo woman transferred from [facility] as a STEMI. She had chest discomfort on Saturday and went to her PCP this AM. EKG revealed ST elevation in the inferior and anterolateral leads and she was sent to the ER. EKGs transmitted to [facility] and due to recurrent chest pain she was brought to the laborer cook house at [facility]. During helicopter transfer she had chest discomfort [...] available in the chart here [facility]fer [facility]. Patient initially presented to her PCP [...] 3.9 (UNL 0.06). CXR was clear at [facility]. Initial EKG was notable for ST [...] [address] drug Using of [employer] ROS (positives in bold): ROS Constitutional: No [...] available in the chart here intransfer from [facility]. Patient initial presented to her PCP [...] Price MD PGY-1, Internal Medicine Team Pager [phone] 02/07/2016 STAFF ADDENDUM: I have reviewed the [...] Safety Interventions Safety Precautions/Fall Reduction supervised activity;safety consultant;room near unit station;nonskid shoes/slippers when out of [...] Nephropathy Management fluids promoted Intervention: Fluid Management 02/08/16 0818 Nutrition Interventions Fluid Management fluids promoted;intravenous fluids [...] Handling Outcome: Ongoing (Interventions Implemented as Appropriate) 02/07/16220002/08/16 0020 02/08/1654 Musculoskeletal Interventions Activity/Level of Assistance up [...] Control Outcome: Ongoing (Interventions Implemented as Appropriate) 02/07/16174902/07/16220002/08/16 002 Coping/Psychosocial Response Interventions Counseling emotional support provided;personal [...] EVALUATION NOTE: OUTCOME SUMMARY: Patient arrived from [facility] lab just before 1800. She has [...] Outcome: Ongoing (Interventions Implemented as Appropriate) 02/07/16 175 Coping/Psychosocial Response Interventions Counseling emotional support provided;personal strengths integrated;reassurance provided;understanding of situation facilitated;verbalization of feelings encouraged Safety Interventions Isolation Precautions standard precautions maintained Infection Prevention bronchial hygiene promoted;environmental surveillance;hydration promoted;nutrition promoted;promote handwashing;rest/sleep promoted Goal: Discharge Needs Assessment Outcome: Ongoing (Interventions Implemented as Appropriate) 02/07/16 190 Discharge Needs Assessment Concerns to be Addressed [...] CPG) Outcome: Ongoing (Interventions Implemented as Appropriate) 02/07/161899 Cardiac Catheterization with/without PCI Problems Assessed (Cardiac Catheterization with/without PCI) all Problems Present (Cardiac Catheterization with/without PCI) acute pain documented in this encounter Plan of Treatment Upcoming Encounters Date Type Department Care Team (Late st Contact Info) Description 01/20/2025 9:00 AM EDT Laboratory Appointment Lab [address] 01/20/2025 9:30 AM EDT Appointment Ultrasound at [place] [address] Ana Ho MD [facility] [address] 01/20/2025 11:00 AM EDT Office Visit Gastroenterology at [address] Ana Ho MD [facility] [place] [address] 01/20/2025 12:00 PM EDT Office Visit Weight Center at [address] Candy Clifford MD [facility] [place] [address] documented as of this encounter Procedures Procedure Name Priority Date/Time Associated Diagnosis Comments TRIPOLER SCAN 02/09/2016 12:00 AM EDT CARDIAC CATH SCAN 02/09/2016 12: 00 AM EDT ECHO COMPLETE Routine 02/08/2016 10:11 AM EDT Chest pain, unspecified type EKG 12-LEAD Routine 02/08/2016 9:[address] elevation myocardial infarction (STEMI), unspecified artery HEMOGRAM Routine 02/08/2016 6:25 AM EDT DIFFERENTIAL, AUTOMATED Routine 02/08/2016 6:25 AM EDT CARDIAC ENZYMES ([facility]) STAT 02/08/2016 6:25 AM EDT CBC (WITH DIFF) Routine 02/08/2016 6:25 AM EDT TSH STAT 02/08/2016 6:25 AM EDT BASIC METABOLIC PANEL STAT 02/08/2016 6:25 AM EDT CARDIAC ENZYMES ([facility]) STAT 02/07/2016 11:45 PM EDT POCT GLUCOSE Routine 02/07/2016 9:37 PM EDT RAPID DRUG SCREEN W/ CONFIRMATION, URINE Routine 02/07/2016 6:33 PM EDT THC (MARIJUANA), URINE, CONFIRMATION Routine 02/07/2016 6:33 PM EDT HEMOGRAM Routine 02/07/2016 6:10 PM EDT DIFFERENTIAL, AUTOMATED Routine 02/07/2016 6:10 PM EDT BLUE TUBE HOLD Routine 02/07/2016 6:10 PM EDT CARDIAC ENZYMES ([facility]) STAT 02/07/2016 6:10 PM EDT CBC (WITH DIFF) Routine 02/07/2016 6:10 PM EDT MAGNESIUM Routine 02/07/2016 6:10 PM EDT COMPREHENSIVE METABOLIC PANEL Routine 02/07/2016 6:10 PM EDT FILM LIBRARY STORAGE ONLY DX CHEST Routine 02/07/2016 12:00 AM EDT Pain documented in this encounter Results * SCAN DOC: TRIPOLER (02/09/2016 12:00 AM EDT) Anatomical Region Laterality [...] SHERRON ? (Age): 1950(65y) Med Rec#: ? [id number] ?Sex: ?F ? Site Loc: ? [facility] ?Ht / Wt: ??159(cm)/121(kg) Pt. Loc: ?[facility] ? BSA: ?2.18 Study Date: ?? 02/08/2016 ?Pt. Type: Inpatient Tape: ? Referring: Riley Lara Referring: CYNDY Reading: Chele Gracia ([id number]) Leather Leveler: Carmen Arriaza Diagnosis: *ICD-10-PCS Chest pain, unspecified (R07.9) CPT Codes: *Echo Full (53844) *Spectral Doppler (76561) *Color Doppler (63546) BP: ? 122/56 SUMMARY: 1. The left [...] E-wave Vmax ?1.2 ?m/sec ? MV deceleration qsvf146.7 ?msec ? MV A-wave Vmax ?1.4 ?m/sec [...] ? Mid-Inferior ?Normal ? Mid-Inferoseptal ?Normal ? [place]-Septal ? Normal ? [place]-Anterior ? Normal ? [place]-Lateral ?Normal ? [place]-Inferior ? Normal ? [place]-Tip ?Hypokinetic ? This report has been electronically signed by: Chele Garcia MD ? 02/08/2016 10:38:43 Images reviewed and interpretation verified [facility] Cardiac Ultrasound Laboratory Procedure Note Chele Garcia MD - 02/08/2016 Procedure: Transthoracic Echocardiogram Patient: ROBER JAMES(Age): 1950(65y) Med Rec#: [id number] Sex: F Site Loc: [facility] Ht / Wt: 159(cm)/121(kg) Pt. Loc: [facility] BSA: 2.18 Study Date: 02/08/2016 Pt. Type: Inpatient Tape: Referring: Rilye Lara Referring: BEAUBOJONATHANFANDREFELIX Reading: Chele Garcia ([id number]) Leather Leveler: Carmen Arriaza Diagnosis: *ICD-10-PCS Chest pain, unspecified (R07.9) CPT Codes: *Echo Full (01884) *Spectral Doppler (66610) *Color Doppler (16891) BP: 122/56 SUMMARY: 1. The left ventricular [...] no upper septal hypertrophy and no apparent RADAEMS of the mitral valve and therefore this [...] MV E-wave Vmax 1.2 m/sec MV deceleration cder662.7 msec MV A-wave Vmax 1.4 m/sec MV [...] Normal Mid-Posterolateral Normal Mid-Inferior Normal Mid-Inferoseptal Normal [place]-Septal Normal [place]-Anterior Normal [place]-Lateral Normal [place]-Inferior Normal [place]-Tip Hypokinetic This report has been electronically signed by: Chele Garcia MD 02/08/2016 10:38:43 Images reviewed and interpretation verified [facility] Cardiac Ultrasound Laboratory Riley Lara MD ECHO ORDERABLES * EKG 12 Lead (02/08/2016 9:58 AM EDT) Ventricular rate 74 BPM MUSE SYSTEM Atrial Rate 75 BPM MUSE SYSTEM P-R Interval 186 ms MUSE SYSTEM QRS Duration 86 ms MUSE SYSTEM Q-T Interval 396 ms MUSE SYSTEM QTC Calculated (Bezet) 439 ms MUSE SYSTEM Calculated P [place] 38 degrees MUSE SYSTEM Calculated R [place] 36 degrees MUSE SYSTEM Calculated T [place] 50 degrees MUSE SYSTEM INTERPRETATION Normal sinus rhythm Nonspecific ST abnormality Abnormal ECG No previous ECGs available Confirmed by MD Yared, Leo ([id number]) on 02/08/2016 3:04:02 PM MUSE SYSTEM 02/08/2016 9:58 AM EDT 02/08/2016 3:04 PM EDT Riley Lara MD ECG ORDERABLES Performing Organization Address City/[facility]/ZIP Co de Phone Number MUSE SYSTEM * TSH (02/08/2016 6:25 AM EDT) [facility] Thyroid Stimulating Hormone 1.99 0.27 - 4.20 mcIU/mL [facility] Blood specimen (specimen) Venous Draw / Unknown 02/08/2016 6:25 AM EDT 02/08/2016 7:02 AM EDT Narrative Resulting Agency Comment Spec In Lab Riley Lara MD CHEMISTRY ORDERABLES Performing Organization Address City/[facility] Co de Phone Number [facility] [place] [place] [address] * (ABNORMAL) Basic Metabolic Panel (non-fasting) (02/08/2016 6:25 AM EDT) [facility] Glucose 95 65 - 199 mg/dL [facility] Comment:Diabetes: >=200 mg/d L plus symptoms Blood Urea Nitrogen 10 8 - 18 mg/dL [facility] Creatinine 0.73 0.70 - 1.20 mg/dL [facility] Comment: Please note that the pediatric reference intervals supplied above were not validated at [facility]. Results from pediatric patients should be interpreted [...] the following links into your internet browser. [email or web address] Blood specimen (specimen) Venous Draw / Unknown 02/08/2016 6:25 AM EDT 02/08/2016 7:02 AM EDT Narrative Resulting Agency Comment Spec In Lab Riley Lara MD CHEMISTRY ORDERABLES [facility] [place] [place] [address] * Differential, Automated (02/08/2016 6:25 AM EDT) Neutrophil % 56.9 % [facility] Neutrophil Absolute 3.95 1.50 - 6.30 x10(3)/[facility] Lymph % 30.9 % [facility] Lymphocytes Abs 2.2 1.0 - 3.6 x10(3)/[facility] Monocyte % 10.5 % [facility] Monocyte Abs 0.7 0.2 - 1.0 x10(3)/[facility] Eos % 1.3 % [facility] Eosinophils Abs 0.1 0.0 - 0.5 x10(3)/[facility] Basophil % 0.3 % [facility] Baso Absolute 0.0 0.0 - 0.2 x10(3)/[facility] Immature Gran % 0.10 % [facility] Comment: Immature granulocytes(IG's)percentage and absolute count will include metamyelocytes, myelocytes, and promyelocytes. Blood smears from CBCs yielding IG's will be scanned manually for concordance. If this scan disagrees with the automated IG or if promyelocytes are noted, a manual differential will be performed. Immature Gran Absolute 0.01 0.00 - 0.05 x10(3)/[facility] Blood specimen (specimen) 02/08/2016 6:25 AM EDT 02/08/2016 7:02 AM EDT Narrative Resulting Agency Comment Spec In Lab Riley Lara MD HEMATOLOGY ORDERABLE S [facility] [place] [address] * (ABNORMAL) Hemogram (02/08/2016 6:25 AM EDT) White Blood Cell 7.0 4.0 - 10.0 x10(3)/mc L [facility] Red Blood Cell 4.32 3.93 - 5.22 x10(6)/mc L [facility] Hemoglobin 12.0 11.2 - 15.7 gm/dL [...] HEMATOLOGY ORDERABLE S [facility] [place] [address] * (ABNORMAL) Cardiac Enzymes (02/08/2016 6:25 AM EDT) Troponin-T 0.48(H) <=0.03 ng/mL [facility] Comment: 0.03 ng/mL: Represents the 99th percentile upper reference limit for normals. >0.03 ng/mL: Elevated cardiac troponin T level indicative of myocardial damage. Diagnosis of acute, evolving or recent ID requires a typical rise and gradual fall [...] consensus document of the Joint Society of Cardiology/[place] College of Cardiology Committee for the redefinition of myocardial infarction. ??Journal of the [place] College of Cardiology 2000; 36: 959-969] Creatine Kinase 136 0 - 160 unit/L [facility] Blood specimen (specimen) 02/08/2016 6:25 AM EDT 02/08/2016 7:02 AM EDT Narrative Resulting Agency Comment Spec In Lab Riley Lara MD CHEMISTRY ORDERABLES Performing Organization Address [facility] Co de Phone Number [facility] [place] [address] * (ABNORMAL) Cardiac Enzymes (02/07/2016 11:45 PM EDT) [facility] Troponin-T 0.47(H) <=0.03 ng/mL [facility] Comment: 0.03 ng/mL: Represents the 99th percentile upper reference limit for normals. >0.03 ng/mL: Elevated cardiac troponin T level indicative of myocardial damage. Diagnosis of acute, evolving or recent ID requires a typical rise and gradual fall [...] consensus document of the Joint Society of Cardiology/[place] College of Cardiology Committee for the redefinition of myocardial infarction. ??Journal of the [place] College of Cardiology 2000; 36: 959-969] Creatine Kinase 158 0 - 160 unit/L [facility] Blood specimen (specimen) 02/07/2016 11:45 PM EDT 02/07/2016 11:49 PM EDT Narrative Resulting Agency Comment Spec In Lab Riley Lara MD CHEMISTRY ORDERABLES Performing Organization Address [facility]/ZIP Co de Phone Number [facility] [place] [address] * POCT Glucose (02/07/2016 9:37 PM EDT) Pathologist [facility] Glucose, POC 83 65 - 199 mg/dL [facility] Comment: Supplemental ranges: <140 mg/dL before meals <180 mg/dL all other times of the day Blood specimen (specimen) 02/07/2016 9:37 PM EDT 02/07/2016 9:37 PM EDT Riley Lara MD POINT OF CARE TEST O RDERABLES Performing Organization Address [facility]/ZIP Co de Phone Number [facility] [place] [address] * THC (Marijuana), Urine Confirmation (02/07/2016 6:33 [...] employment-relat ed drug testing. Test Performed by: [employer] [address], [place] [address] Hospitality Services Manager: Carolyn Kenny, Ph.D. [facility] Urine specimen (specimen) 02/07/2016 6:33 PM EDT 02/08/2016 8:31 AM EDT Narrative Resulting Agency Comment Spec In Lab Riley Lara MD LAB SEND OUT ORDERAB LES Performing Organization Address [facility]/ZIP Co de Phone Number [facility] [place] [address] * (ABNORMAL) Rapid Drug Screen, Urine with Confirm (02/07/2016 6:33 PM EDT) KEON Marijuana Metabolites Screen Presumptive Pos(A) None Detected [facility] Comment: The marijuana metabolites screen detects the THC Metabolite (92-sza-4-carboxy-? 9 -THC) at concentrations >50 ng/mL. Qualitative [...] In Lab Riley Lara MD URINE ORDERABLES [facility] [place] [address] * Blue Tube HOLD (02/07/2016 6:10 PM EDT) Blue Hold Sample in lab. [facility] Blood specimen (specimen) Venous Draw / Unknown 02/07/2016 6:10 PM EDT 02/07/2016 6:18 PM EDT Riley Lara MD HEMATOLOGY ORDERABLE S Performing Organization Address City/[facility]/ZIP Co de Phone Number [facility] [place] [address] * Differential, Automated (02/07/2016 6:10 PM EDT) Neutrophil % 66.5 % [facility] Neutrophil Absolute 4.77 1.50 - 6.30 x10(3)/[facility] Lymph % 23.8 % [facility] Lymphocytes Abs 1.7 1.0 - 3.6 x10(3)/[facility] Monocyte % 8.5 % [facility] Monocyte Abs 0.6 0.2 - 1.0 x10(3)/[facility] Eos % 1.0 % [facility] Eosinophils Abs 0.1 0.0 - 0.5 x10(3)/[facility] Basophil % 0.1 % [facility] Baso Absolute 0.0 0.0 - 0.2 x10(3)/[facility] Immature Gran % 0.10 % [facility] Comment: Immature granulocytes(IG's)percentage and absolute count will include metamyelocytes, myelocytes, and promyelocytes. Blood smears from CBCs yielding IG's will be scanned manually for concordance. If this scan disagrees with the automated IG or if promyelocytes are noted, a manual differential will be performed. Immature Gran Absolute 0.01 0.00 - 0.05 x10(3)/[facility] Blood specimen (specimen) 02/07/2016 6:10 PM EDT 02/07/2016 6:17 PM EDT Narrative Resulting Agency Comment Spec In Lab Riley Lara MD HEMATOLOGY ORDERABLE S Performing Organization Address City/[facility]/ZIP Co de Phone Number [facility] [place] [address] * (ABNORMAL) Hemogram (02/07/2016 6:10 PM EDT) White Blood Cell 7.2 4.0 - 10.0 x10(3)/mc L [facility] Red Blood Cell 4.69 3.93 [...] MD HEMATOLOGY ORDERABLE S Performing Organization Address City/State/[facility] Co de Phone Number [facility] [place] [address] * Magnesium (02/07/2016 6:10 PM EDT) Magnesium 0.71 0.69 - 1.07 mmol/L [facility] Blood specimen (specimen) 02/07/2016 6:10 PM EDT 02/07/2016 6:17 PM EDT Narrative Resulting Agency Comment Spec In Lab Riley Lara MD CHEMISTRY ORDERABLES [facility] [place] [address] * (ABNORMAL) Comprehensive metabolic panel (non-fasting) (02/07/2016 6:10 PM EDT) Glucose 89 65 - 199 mg/dL [facility] Comment:Diabetes: >=200 mg/d L plus symptoms Blood Urea Nitrogen 10 8 - 18 mg/dL [facility] Creatinine 0.79 0.70 - 1.20 mg/dL [facility] Comment: Please note that the pediatric reference intervals supplied above were not validated at [facility]. Results from pediatric patients should be interpreted [...] the following links into your internet browser. [email or web address] Blood specimen (specimen) 02/07/2016 6:10 PM EDT 02/07/2016 6:17 PM EDT Narrative Resulting Agency Comment Spec In Lab Riley Lara MD CHEMISTRY ORDERABLES [facility] [place] [address] * (ABNORMAL) Cardiac Enzymes (02/07/2016 6:10 PM EDT) Troponin-T 0.50(H) <=0.03 ng/mL [facility] Comment: 0.03 ng/mL: Represents the 99th percentile upper reference limit for normals. >0.03 ng/mL: Elevated cardiac troponin T level indicative of myocardial damage. Diagnosis of acute, evolving or recent ID requires a typical rise and gradual fall [...] consensus document of the Joint Society of Cardiology/[place] College of Cardiology Committee for the redefinition of myocardial infarction. ??Journal of the [place] College of Cardiology 2000; 36: 959-969] Creatine Kinase 178(H) 0 - 160 unit/L [facility] Blood specimen (specimen) 02/07/2016 6:10 PM EDT 02/07/2016 6:17 PM EDT Narrative Resulting Agency Comment Spec In Lab Riley Lraa MD CHEMISTRY ORDERABLES [facility] [place] [address] * Film Library- Storage only DX Chest [...] her NS drip that was started in laborer cook house. 2232 (New Bag - Provider: Toshia Ruiz [...] Routine documented in this encounter Care Teams Wedger And Gluer Relationship Specialty Start Date End Date Kathleen Ratliff, SET UP [employer] [address] [place] [address] PCP - General Family Medicine 02/07/16 05/01/17 documented as of this encounter
--- OUTSIDE RECORDS SUMMARY | 2024-10-07 20:40 | XMS_ITS | Encounter Summary ---
Author Organization [facility] [place] [address] Care Team Providers Care Sole Molding Machine Operator Name Role Phone Amber Ratliff RIGOBERTO Primary Care Provider Reason for Visit * Reason Onset Date Comments Results 02/21/2016 [facility] [place] on Pt Encounter Details Date Type Department Care Team (Late Contact Info) Description 02/21/2016 Telephone Cardiology at [address] [phone] Jaswant Teresa Jr., MD Results ([facility] [place] on Pt) Social History Tobacco Use Types [...] 9:00 AM EDT Laboratory Appointment Lab [address] [place] [address] 01/20/2025 9:30 AM EDT Appoint[place] [address] Ana Ho MD [facility] [place] [address] 01/20/2025 11:00 AM EDT Office Visit [place] [address] Ana Ho MD [facility] [place] [address] 01/20/2025 12:00 PM EDT Office [place] [address] Candy Clifford MD [facility] DR [address] [place] [address] documented as of this encounter Visit Diagnoses Not on filedocumented in this encounter Care Teams Sole Molding Machine Operator Relationship Specialty Start Date End Date Amber Ratliff APRN [address] [place] [address] PCP - General Family Medicine 02/07/16 05/01/17 documented as of this encounter
--- OUTSIDE RECORDS SUMMARY | 2024-10-07 20:40 | XMS_ITS | Encounter Summary ---
Author Organization [facility] [place] [address] Care Team Providers Care Under Cutting Machine Operator Name Role Phone GaudencioMark lawrenceilene Campo APRN Primary Care Provider Encounter Details Date Type Department Care Team (Latest Contact Info) Description 02/07/2016 - 02/07/2016 2:58 PM EDT Hospital Encounter Radiology Library at [facility] [place] [phone] Discharge Disposition: Home Social History Tobacco Use [...] 9:00 AM EDT Laboratory Appointment Lab [address] [place] [phone] 01/20/2025 9:30 AM EDT [place] [address] Ana Ho MD [facility] GASTROENTEROLOGY [place], [place] [id number] 01/20/2025 11:00 AM EDT Office [place] [address] Ana Ho MD [facility] GASTROENTEROLOGY [place], [place] [id number] 01/20/2025 12:00 PM EDT Office [place] [address] Candy Clifford MD [facility] DR [address] [facility] [address] documented as of this encounter Procedures Procedure [...] on filedocumented in this encounter Care Teams Under Cutting Machine Operator Relationship Specialty Start Date End Date Amber Ratliff, PLATEN BUILDER UP [address] [place] [address] PCP - General Family Medicine 02/07/16 05/01/17 documented as of this encounter
== END 2024-10-07 20:32 | disposition home or self-care (01) ==
LOC: NCHCN 20:31
PROVIDERS: PCP Student in an Organized Health Care Education/Training Program; Visit Provider Student in an Organized Health Care Education/Training Program
DX: R73.03 Prediabetes (principal); I85.00 Esophageal varices without bleeding
CPT/HCPCS: 83036; 85025

== ENCOUNTER 2025-04-14 14:30 | Outpatient (REF) | payer MEDICAID, SELFPAY ==
[2025-04-15 17:02] LABS: COMMENT (LAB VIEW ONLY) 147.58 mg/dL; Microalb ug/mg Crea 6.9 ug/mg Cr
== END 2025-04-14 14:31 | disposition home or self-care (01) ==
LOC: NCHCN 14:30
PROVIDERS: PCP Student in an Organized Health Care Education/Training Program; Visit Provider Student in an Organized Health Care Education/Training Program
DX: I10 Essential (primary) hypertension (principal)
CPT/HCPCS: 82043; 82570

== ENCOUNTER 2025-04-21 14:27 | Outpatient (REF) | payer MEDICAID, SELFPAY ==
[2025-04-21 16:38] LABS: Abs Immature Grans 0.01 10^3/uL (0.0-0.06); HCT 41.9 % (36.0-46.0); HGB 14.1 g/dL (11.2-15.7); Immature Grans % 0.2 %; MCH 30.5 pg (27.0-33.0); MCHC 33.7 % (32.0-36.0); MCV 91 fL (80-95); MPV 11.0 fL (8.0-11.0); Platelet Count 186 10^3/uL (130-400); RBC 4.62 10^6/uL (3.93-5.22); RDW 14.2 % (11.7-14.6); RDW-SD 46.9 fL; WBC 4.36 10^3/uL (4.4-10.8)
[2025-04-21 16:39] LABS: ESR 1 mm/hr (0-30)
[2025-04-21 16:47] LABS: ALT 25 U/L (14-59); AST 35 U/L (15-37); Albumin 3.5 g/dL (3.4-5.0); Alkaline Phosphatase 54 U/L (46-116); Anion Gap 8.1 mmol/L (3-11); BUN 7 mg/dL (7-18); Bilirubin, Total 1.4 mg/dL (0.2-1.0); CO2 29.9 mmol/L (21.0-32.0); Calcium 8.9 mg/dL (8.5-10.1); Chloride 104 mmol/L (98-107); Estimated GFR 91.26 (mL/min/1.73m2); Glucose 95 mg/dL (74-106); Potassium 3.5 mmol/L (3.5-5.1); Sodium 142 mmol/L (136-145); Total Protein 6.3 g/dL (6.4-8.2)
[2025-04-21 16:48] LABS: C-Reactive Protein < 0.50 mg/dL (<or=0.5); INR 1.2 (0.9-1.1); Prothrombin Time 12.0 sec (9.1-11.1)
[2025-04-22 19:00] LABS: Hepatitis C Ab w Rflx HCV PCR Reactive (Negative)
== END 2025-04-21 14:28 | disposition home or self-care (01) ==
LOC: NCHCN 14:27
PROVIDERS: PCP Student in an Organized Health Care Education/Training Program; Visit Provider Student in an Organized Health Care Education/Training Program
DX: R23.3 Spontaneous ecchymoses (principal); Z86.19 Personal history of other infectious and parasitic diseases
CPT/HCPCS: 80053; 85652; 86803; 87522; 85025; 85610; 86038; 86140

== ENCOUNTER → 2025-07-07 14:23 | Outpatient (BNVA) | payer MEDICAID, SELFPAY | PROVIDERS: PCP Student in an Organized Health Care Education/Training Program; Referring Provider Student in an Organized Health Care Education/Training Program; Visit Provider Podiatrist | DX: L60.3 Nail dystrophy (principal); B35.1 Tinea unguium; M79.671 Pain in right foot; M79.672 Pain in left foot; G60.9 Hereditary and idiopathic neuropathy, unspecified; R20.8 Other disturbances of skin sensation; L60.2 Onychogryphosis; L60.8 Other nail disorders; L60.0 Ingrowing nail; Z87.19 Personal history of other diseases of the digestive system | CPT/HCPCS: 11755; 11721 ==

== ENCOUNTER → 2025-08-04 10:13 | Outpatient (BNVA) | payer MEDICAID, SELFPAY | PROVIDERS: PCP Student in an Organized Health Care Education/Training Program; Referring Provider Student in an Organized Health Care Education/Training Program; Visit Provider Podiatrist | DX: L60.3 Nail dystrophy (principal); B35.1 Tinea unguium; M79.671 Pain in right foot; M79.672 Pain in left foot; R20.8 Other disturbances of skin sensation; G60.9 Hereditary and idiopathic neuropathy, unspecified | CPT/HCPCS: 99213 ==

== ENCOUNTER → 2025-09-01 09:38 | Outpatient (CLI) | payer MEDICAID, SELFPAY ==
--- NOTE | 2025-09-01 | DI.RAD_ITS ---
Exam(s) XR KNEE RT 3V AP,LAT,JEREMY EXAM: XR KNEE RT 3V AP,LAT,JEREMY CLINICAL HISTORY: Pain, M25.561. TECHNIQUE: 2D digital imaging was performed. Three views. COMPARISON: No exams were available for comparison FINDINGS: BONES: No acute fracture is present. No bony destructive lesion is seen. JOINTS: There is severe degenerative changes of the medial femoral tibial joint space. This periarticular spurring throughout. No joint effusion is seen. SOFT TISSUE: Normal. IMPRESSION: Degenerative changes. No acute abnormality. DATA REPOSITORY: RADIATION DOSE DELIVERED:
== END ==
LOC: DI 09:38
PROVIDERS: PCP Student in an Organized Health Care Education/Training Program; Visit Provider Student in an Organized Health Care Education/Training Program
DX: M25.561 Pain in right knee (principal); M17.11 Unilateral primary osteoarthritis, right knee
CPT/HCPCS: 73562